=== PATIENT | male | born 2000 | race Caucasian/White ===

== ENCOUNTER 2020-06-26 01:53 | Emergency (ER) | payer OTHER, SELFPAY ==
--- OUTSIDE RECORDS SUMMARY | 2020-06-26 01:57 | XMS REPORT | Clinical Summary ---
:2000 Author Organization [facility] Address [address] [place] [address] Care Team Providers Name Role Phone MD Maria A Primary Care Provider Allergies No Known Allergies Medications Medication Sig Dispensed Refills Start Date End Date Status ABSORICA 40 mg Take 40 mg by 0 05/02/2017 Active capsuleIndications: mouth daily. severe recalcitrant nodular acne ARIPiprazole Take 1 tablet (2 30 tablet 0 10/15/2019 9 (ABILIFY) 2 MG mg total) by mouth tabletIndications: nightly for 30 depression days .Additional treatment adjunct Medications to Treat Depression. nicotine (NICODERM Place 1 patch on 30 patch 0 10/15/2019 CQ) 14 mg/24 the skin daily for hrIndications: 30 days .Stop smoking cessation Smoking. traZODone (DESYREL) Take 1 tablet (50 30 tablet 0 10/15/2019 1 01/15/2019 50 MG mg total) by mouth tabletIndications: nightly as needed insomnia associated for sleep for up with depression to 30 days .insomnia associated with depression. Active Problems Problem Noted Date Suicidal ideation 10/08/2019 Depression 10/08/2019 Cystic acne 04/26/2016 Episodic mood disorder 12/23/2012 Overview: History of depression and anxiety. Is following with psychiatry, Dr. Evie Morse, is on fluoxetine 40 mg. Symptoms well controlled per patient. History of self cutting behavior and bob cidal ideation. H/O intravenous drug use in remission Overview: Patient states he was using multiple drugs including intravenous drugs for a few years, states he lost track, had a few hospitalizations related to substance abuse. Has been sober since December 2016. Has also quit smoking since 03/2017. Encounters Date Type Specialty Care Team Description 10/08/2019 - Hospital Encounter Psychiatry Pauly Tang MD 10/15/2019 Joaquin Sanchez MD Kazimi, Iram Fatima, MD 10/08/2019 Intake Access after 06/26/2019 Immunizations Name Administration Dates Next Due DTP / HiB 1999 DTaP, Unspecified 04/08/2003, 03/28/2000, 1999 FLUZONE QUAD 10/05/2015, 07/10/2012, 01/09/2012 HPV, Unspecified 03/31/2013, 10/24/2012, 07/10/2012 Hep A, Unspecified 06/22/2011, 12/10/2001 Hep B, Unspecified 03/28/2000, 1999, 1999 Hib (PRP-T) 03/28/2000, 1999 IPV 04/08/2003, 03/28/2000, 1999, 1999 MMR 04/08/2003, 03/28/2000 Meningococcal ACYW, Unspecified 07/09/2015, 06/22/2011 Tdap 06/22/2011 Varicella 03/28/2000 Family History Medical History Relation Name Comments ADD / ADHD Brother ADD / ADHD Brother Mental illness Father Other Father Bipolar disorder Maternal Grandfather Depression Maternal Grandfather No Known Problems Maternal Grandmother Depression Mother Hyperlipidemia Paternal Grandfather Hypertension Paternal Grandfather Other Paternal Grandfather Colon cancer Neg Hx Prostate cancer Neg Hx Relation Name Status Comments Brother Alive Brother Alive Father Alive substance abuse Maternal Grandfather Alive Maternal Grandmother Alive Mother Alive Paternal Grandfather Alive detatched r etina and ulcers Paternal Grandmother unknown cau se of Social History Tobacco Use Types Packs/Day Years Used Date Current Every Day Smoker Cigarettes Smokeless Tobacco: Former User Q uit: 04/13/2017 Tobacco Cessation: Ready to Quit: Yes; C ounseling Given: Yes Comments: restarted 05/22/2017 Alcohol Use Drinks/Week oz/Week Comments Yes social Sex Assigned at Date Recorded Not on file Job Start Date Occupation Industry Not on file Not on file Not on file Travel History Travel Start Travel End No recent travel history available. Last Filed Vital Signs Vital Sign Reading Time Taken Comments Blood Pressure 127/69 10/15/2019 6:37 AM PERCUSSION INSTRUMENT REPAIRER Pulse 62 10/15/2019 6:37 AM PERCUSSION INSTRUMENT REPAIRER Temperature 37 C (98.6 F) 10/15/2019 6:37 AM PERCUSSION INSTRUMENT REPAIRER Respiratory Rate 18 10/15/2019 6:37 AM PERCUSSION INSTRUMENT REPAIRER Oxygen Saturation 100% 10/15/2019 6:37 AM PERCUSSION INSTRUMENT REPAIRER Inhaled Oxygen Concentration - - Weight 65 kg (143 lb 3.2 oz) 10/15/2019 6:37 AM PERCUSSION INSTRUMENT REPAIRER Height 193 cm (6' 4") 10/08/2019 5:13 AM PERCUSSION INSTRUMENT REPAIRER Body Mass Index 17.43 10/08/2019 5:13 AM PERCUSSION INSTRUMENT REPAIRER Plan of Treatment Health Maintenance Due Date Last Done Comments INFLUENZA VACCINE 06/19/2020 10/05/2015, 07/10/2012, 2011 Procedures Procedure Name Priority Date/Time Associated Comments Diagnosis URINALYSIS SCREEN AND Routine 10/11/2019 10:35 Re sults for this MICROSCOPY, WITH PM PERCUSSION INSTRUMENT REPAIRER procedure a re in REFLEX TO CULTURE the result s section. URINE CULTURE Routine 10/11/2019 10:35 Results fo r this PM PERCUSSION INSTRUMENT REPAIRER procedure are i n the results section. SYPHILIS TOTAL Routine 10/08/2019 11:00 Results f or this ANTIBODY PM [employer]CUSSION INSTRUMENT REPAIRER procedure are i n the results section. HIV AG/AB COMBINATION Routine 10/08/2019 11:00 Re sults for this PM PERCUSSION INSTRUMENT REPAIRER procedure are i n the results section. LIPID PANEL Routine 10/08/2019 11:00 Results for this PM PERCUSSION INSTRUMENT REPAIRER procedure are i n the results section. HEMOGLOBIN A1C Routine 10/08/2019 11:00 Results f or this PM PERCUSSION INSTRUMENT REPAIRER procedure are i n the results section. RESPIRATORY PATHOGEN Routine 10/08/2019 8:10 Res ults for this PANEL AM PERCUSSION INSTRUMENT REPAIRER procedure are i n the results section. after 06/26/2019 Results Urinalysis screen and microscopy, with reflex to culture (10/11/2019 10:35 PM PERCUSSION INSTRUMENT REPAIRER) Specimen site Random void [facility] Color, UA Colorless [facility] Appearance, UA Clear [facility] Specific gravity, UA 1.001 1.001 - 1.035 [facility] pH, UA 7.0 5.0 - 8.5 [facility] Protein, UA Negative Negative [facility] Glucose, UA Negative Negative [facility] Ketones, UA Negative Negative [facility] Bilirubin, UA Negative Negative [facility] Blood, UA Negative Negative [facility] Nitrite, UA Negative Negative [facility] Urobilinogen, UA <2.0 <2.0 [facility] Leukocyte esterase, Negative Negative [facility] Epithelial cells, UA <1 /HPF [facility] WBC, UA None seen 0 - 1 /HPF [facility] RBC, UA None seen 0 - 5 /HPF [facility] Bacteria, UA None seen None seen [facility] Yeast, UA None seen [facility] Yeast with None seen [facility] pseudohyphae, HOSPITAL Specimen Urine Performing Organization Address City/State/Zipcode Phone Number [facility] DEPARTMENT OF PATHOLOGY AND [address] [place] [address] [place] [phone] Urine culture (10/11/2019 10:35 PM PERCUSSION INSTRUMENT REPAIRER) Pathologist Sig nature Urine culture SEE COMMENTComment: [facility] Bacteriuria screen HOSPITAL negative. Specimen Performing Organization Address City/[facility] Phone Number [facility] DEPARTMENT OF PATHOLOGY AND [address] [place] [phone] Syphilis total antibody (10/08/2019 11:00 PM PERCUSSION INSTRUMENT REPAIRER) Syphilis total Non-reactiveComment Non-reactive [facility] antibody : No serological HOSPITAL evidence of syphilis infection. Specimen Blood Performing Organization Address City/[facility]/Zipcode Phone Number [facility] DEPARTMENT OF PATHOLOGY AND [address] [place] [phone] [place] [phone] HIV Ag/Ab combination (10/08/2019 11:00 PM PERCUSSION INSTRUMENT REPAIRER) HIV Ag/Ab combination Non-reactive Non-reactive [facility] Specimen Blood Performing Organization Address City/[facility]/Zipcode Phone Number [facility] DEPARTMENT OF PATHOLOGY AND [address] [place] [phone] Hemoglobin A1c (10/08/2019 11:00 PM PERCUSSION INSTRUMENT REPAIRER) Hemoglobin A1C 5.5 4.0 - 5.6 % [facility] Comment: HOSPITAL HbA1c cutoffs for diagnosing diabetes: 4.0% - 5.6% = normal 5.7% - 6.4% = increased risk for diabetes (prediabetes )9 >=6.5% = diabetes9 Goals for glycemic control (ADA 2016) < 7.0% Target for non adults with diabetes. More or less stringent targets may be appropriate for individual patients. <7.5% Target for Children and adolescents with type 1 diabetes. Specimen Blood Performing Organization Address City/[facility]ode Phone Number [facility] DEPARTMENT OF PATHOLOGY AND [address] [place] [address] [phone] [address] Lipid panel (10/08/2019 11:00 PM PERCUSSION INSTRUMENT REPAIRER) Cholesterol 122 <200 mg/dL [facility] Triglycerides 110 <150 mg/dL [facility] HDL cholesterol 43 >40 mg/dL [facility] LDL cholesterol 68Comment: Result <100 mg/dL [place] obtained by direct [place] LDL measurement [facility] Lipid panel [facility] interpretation Comment: [place] Total Cholesterol (mg/dL) HOSPIT [place] <200 Desirable 200-239 Borderline-high >=240 High Triglycerides (mg/dL) <150 Normal 150-199 Borderline-high 200-499 High >=500 Very high HDL Cholesterol (mg/dL) <40 Low (male) <40 Low (female) LDL Cholesterol (mg/dL) <100 Optimal 100-129 Near or above optimal 130-159 Borderline-high 160-189 High >=190 Very high Risk Catergories that modify LDL goals. Risk Catergories LDL goal (mg/d L) CHD and CHD risk equivalent <100 (10-year risk >20%) Multiple (2+) risk factors <130 (10-year risk =<20%) 0-1 risk factors <160 (<10-year risk) Defining levels of lipids in metabolic syndrome Triglycerides >=150 mg/dL HDL Cholesterol Men <40 mg /dL Women <40 mg/ dL Non-HDL cholesterol is a second target for therapy in persons with high triglycerides (>=200 mg/dL) Specimen Plasma specimen Performing Organization Address City/State/Zipcode Phone Number [facility] DEPARTMENT OF PATHOLOGY AND [address] [place], [place] [phone] [id number] [place] [phone] Respiratory pathogen panel (10/08/2019 8:10 AM PERCUSSION INSTRUMENT REPAIRER) Respiratory Positive for Rhinovirus/Enterovirus [place] pathogen panel [place] Negative for all other pathogens tested: HOSPITAL Negative for Adenovirus Negative for Coronavirus HKU1 Negative for Coronavirus NL63 Negative for Coronavirus 229E Negative for Coronavirus OC43 Negative for Human Metapneumovirus Negative for Influenza A Negative for Influenza A/H1 Negative for Influenza A/H3 Negative for Influenza A/H1-2009 Negative for Influenza B Negative for Parainfluenza Virus 1 Negative for Parainfluenza Virus 2 Negative for Parainfluenza Virus 3 Negative for Parainfluenza Virus 4 Negative for Respiratory Syncytial Virus Negative for Bordetella pertussis Negative for Chlamydophila pneumoniae Negative for Mycoplasma pneumoniae This real-time PCR assay detects the presence of nucle ic acids (RNA or DNA) for the respiratory pathogens liste d. A result of "Not-detected" does not exclude the possib ility of the presence of one or more pathogens at concentrat ions less than the detectable limits of the assa (A) Comment: Specimen Information Specimen Source: Nares Specimen Site: Not otherwise specified Specimen Nares - Not otherwise specified Performing Organization Address City/State/Zipcode Phone Number [facility] DEPARTMENT OF PATHOLOGY AND [address] [place] [phone] [facility] [address] [phone] after 06/26/2019 Insurance Payer Benefit Plan / Subscriber ID Effective Dates Phone Addre ss Type Group [facility] xxxxxxxxxxxx 2016-[employer] HEALTH CHOICE EXCHANGE t EXCHANGE [employer] BCBS BCBS OUT OF STATE xxxxxxxxxxxxxx 2015-[employer] PPO t MISC EXCHANGE AMBETTER FROM xxxxxxxxxxx 2019-[employer] SUPERIOR t HEALTHPLAN Advance Directives For more information, please contact: [phone] Type Date Recorded Patient Production Support Consultant Explanati on Advance Directives, Living Will 11/28/2017 4:36 PM and Medical Power of Marine Design Engineer Code Status Date Activated Date Inactivated Comments Full Code 10/08/2019 6:42 AM 10/15/2019 3:55 PM Code Status decision reached by: Patient
--- OUTSIDE RECORDS SUMMARY | 2020-06-26 01:58 | XMS REPORT | Continuity of Care Document ---
:2000 Author Organization [facility] t Address [address] [place] [place] [address] Care Team Providers Name Role Phone Maria A SINCLAIR Primary Care Physician Kitty SINCLAIR Attending Clinician Daniel SNICLAIR, N. Attending Clinician Mirella Varela MD Attending Clinician RAYMUNDO Attending Clinician Unavailable OLGA Attending Clinician Unavailable Payers Payer Name Policy Policy Number Effective Expiration Source Type Date Date [facility] xxxxxxxxxxxx 2016 [place] CHOICE EXCHANGECOM 00:00:00 Method ist [facility] EXCHANGE MARKETPLACExxxxxxxxx xx2016-PresentE xchange BCBSBCBS OUT OF xxxxxxxxxxxxxx 2015 [place] STATExxxxxxxxxxxxxx1 00:00:00 Meth odist /11/2015-PresentPPO MISC xxxxxxxxxxx 2019 [place] EXCHANGEAMBETTER 00:00:00 Methodis t FROM [facility]xx x2019-PresentExc hange Problems Condition Condition Condition Status Onset Resolution Last Treating Co mments Source Name Details Category Date Date Treatment Clinician Date Suicidal Suicidal Disease Active 2018-11 [place] ideation ideation 12-08 Method i 00:00: st 00 Depression Depression Disease Active 2018-11 [place] 12-08 Methodi 00:00: st 00 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 Is following with psychiatr y, Dr. Evie Morse, is on fluoxetin e 40 mg. Symptoms well controlle d per patient.H istory of self cutting behavior and suicidal ideation. Screening Screening Problem Active Uni vers for STD for STD HL7.CCDAR2 ity of ([place]ually ([place]ually [place] transmitte transmitte Ph ysici d disease) d disease) an s Tobacco Tobacco Problem Active Univers abuse abuse HL7.CCDAR2 ity of [place] [facility] Anxiety Anxiety Problem Active Univers and and HL7.CCDAR2 [place] [facility] H/O H/O Disease Active Overview: Adriana arevalo intravenou intravenou Patient M ethodi s drug use s drug use states he st in in was using remission remission multiple drugs including intraveno us drugs for a few years, states he lost track, had a few hospitali zations related to substance abuse. 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 Allergies, Adverse Reactions, Alerts This patient has no known allergies or adverse reactions. Family History Family Member Diagnosis Comments Start Date Stop Date Source uncle Family history of Univers ity of lung cancer [place] [facility] Natural brother ADD / ADHD [place] Sikh Natural father Mental illness [place] Sikh Natural father Other [place] Sikh Maternal Bipolar disorder [place]ana grandfather Sikh Maternal Depression [place]ana grandfather Sikh Maternal No Known Problems [place]ana grandmother Sikh Natural mother Depression [place] Sikh Paternal Hyperlipidemia [place] grandfather Sikh Paternal Hypertension [place]ana grandfather Sikh Paternal Other [place]ana grandfather Sikh Family member Colon cancer [place] Sikh Family member Prostate cancer [place] Sikh Social History Social Habit Start Date Stop Date Quantity Comments Source History of Cigarette Smoker [place] Sikh [facility] 2017-11-28 2017-11-28 Current drinker [place] on Sikh 00:00:00 00:00:00 of alcohol (finding) Tobacco Comment 2017-05-24 2017-05-[address] [facility] ethodist 00:00:00 00:00:00 05/22/2017 Alcohol Comment 2017-04-13 2017-04-[address] [facility] ethodist 00:00:00 00:00:00 Smoking Status Start Date Stop Date Source Current every day smoker 2017-11-28 00:00:00 [facility] Medications Ordered Filled Start Stop Current Ordering Indication Dosage Frequency Signature Comments Components Source Medication Medication Date Date Medication? Clinician (SIG) Name Name ARIPiprazol 2018-11- No depression 2mg QD Take 1 Bruce e (ABILIFY) 12-15 treatment tablet (2 Methodi 2 MG tablet 00:00: 23:59 adjunct mg total) st 00 :00 by mouth nightly for 30 days .Additiona l Medication s to Treat Depression . nicotine 2018-11- No smoking 1{patch QD Place 1 [facility]rera (NICODERM 12-15 cessation } patch on Methodi CQ) 14 00:00: 23:[address] mg/24 hr 00 :00 daily for 30 days .Stop Smoking. traZODone 2018-11- No insomnia 50mg QD Take 1 [place] (DESYREL) 12-15 associated tablet (50 Methodi 50 MG 00:00: 23:59 with mg total) st tablet 00 :00 depression by mouth nightly as needed for sleep for up to 30 days .insomnia associated with depression . Centrum Centrum Yes 1 QD TAKE 1 Unive rs Oral Tablet Oral Tablet 5-23 TABLET ity of 00:00: DAILY. [place] 00 Physici ans Nicorette Nicorette 2017- Yes KELLY 1 CHEW 1 Univers Starter Kit Starter Kit 5-23 HINCKS PIECE ity of 2 MG 2 MG 00:00: D.O. SLOWLY AND [place] Mouth/Throa Mouth/Throa 00 INTERMITTE Physici t Gum t Gum NTLY FOR ans 30 MINUTES. REPEAT EVERY 1-2 HOURS; MAXIMUM OF 24 PIECES/DAY ABSORICA 40 2016- Yes severe 40mg QD Take 40 mg [place]rera mg capsule 6-14 recalcitran by mouth Methodi 00:00: t nodular daily. st 00 acne Vitamin Vitamin Yes Univers B-12 TABS B-12 TABS ity o f [place] [facility] Vitamin C Vitamin C Yes Unive rs TABS TABS ity of [place] [facility] Immunizations Ordered Immunization Filled Immunization Date Status Commen ts Source Name Name Tdap (Adacel) 2018-04-10 Completed [facility] 08:31:00 [place] [facility] FLUZONE QUAD 2015-10-05 Completed [place] 00:00:00 Sikh Meningococcal ACYW, 2015-07-09 Completed [place] Unspecified 00:00:00 Sikh HPV, Unspecified 2013-03-31 Completed [place] 00:00:00 Sikh HPV, Unspecified 2012-10-24 Completed [place] 00:00:00 Sikh HPV, Unspecified 2012-07-10 Completed [place] 00:00:00 Sikh FLUZONE QUAD 2012-07-10 Completed [place] 00:00:00 Sikh FLUZONE QUAD 2012-01-09 Completed [place] 00:00:00 Sikh Hep A, Unspecified 2011-06-22 Completed [place] 00:00:00 Sikh Meningococcal ACYW, 2011-06-22 Completed [place] Unspecified 00:00:00 Sikh Tdap 2011-06-22 Completed [place] 00:00:00 Sikh DTaP, Unspecified 2003-04-08 Completed [place] 00:00:00 Sikh IPV 2003-04-08 Completed [place] 00:00:00 Sikh MMR 2003-04-08 Completed [place] 00:00:00 Sikh Hep A, Unspecified 2001-12-10 Completed [place] 00:00:00 Sikh DTaP, Unspecified 2000-03-28 Completed [place] 00:00:00 Sikh Hep B, Unspecified 2000-03-28 Completed [place] 00:00:00 Sikh Hib (PRP-T) 2000-03-28 Completed [place] 00:00:00 Sikh IPV 2000-03-28 Completed [place] 00:00:00 Sikh MMR 2000-03-28 Completed [place] 00:00:00 Sikh Varicella 2000-03-28 Completed [place] 00:00:00 Sikh DTaP, Unspecified 1999 Completed [place] 00:00:00 Sikh Hib (PRP-T) 1999 Completed [place] 00:00:00 Sikh IPV 1999 Completed [place] 00:00:00 Sikh DTP / HiB 1999 Completed [place] 00:00:00 Sikh IPV 1999 Completed [place] 00:00:00 Sikh Hep B, Unspecified 1999 Completed [place] 00:00:00 Sikh Hep B, Unspecified 1999 Completed [place] 00:00:00 Sikh Vital Signs Vital Name Observation Time Observation Value Comments Source Systolic blood 2019-10-15 127 mm[Hg] [place] pressure 06:37:50 Sikh Diastolic blood 2019-10-15 69 mm[Hg] [place] pressure 06:37:50 Sikh Heart rate 2019-10-15 62 /min [place] 06:37:50 Sikh Body temperature 2019-10-15 37 Le [place] 06:37:50 Sikh Respiratory rate 2019-10-15 18 /min [place] 06:37:50 Sikh Body weight 2019-10-15 64.955 kg [place] 06:37:50 Sikh BMI 2019-10-15 17.43 kg/m2 [place] 06:37:50 Sikh Oxygen saturation 2019-10-15 100 /min [place] in Arterial blood 06:37:50 Sikh by Pulse oximetry Body height 2019-10-08 193 cm [place] 05:13:00 Sikh BP Systolic 2018-04-10 115 mm[Hg] Location: [facility] 08:10:00 Position: [place] [facility] Sitting BP Diastolic 2018-04-10 74 mm[Hg] Location: [facility] 08:10:00 Position: [place] [facility]ician s Sitting Height 2018-04-10 72 [in_us] [facility] 08:10:00 [place] [facility] Weight 2018-04-10 158 [lb_av] [facility] 08:10:00 [place] [facility] Body Mass Index 2018-04-10 21.43 kg/m2 [place] o f Calculated 08:10:00 [place] [facility] Temperature 2018-04-10 97.3 [degF] Method: [facility] 08:10:00 Tympanic [place] [facility] Heart Rate 2018-04-10 48 /min [facility] 08:10:00 [place] [facility] Procedures Procedure Date / Time Performing Clinician Source Performed URINE CULTURE 2019-10-11 22:35:00 Joaquin Sanchez URINALYSIS SCREEN AND 2019-10-11 22:35:00 Joaquin Sanchez MICROSCOPY, WITH REFLEX TO CULTURE HEMOGLOBIN A1C 2019-10-08 23:00:00 Joaquin Sanchez LIPID PANEL 2019-10-08 23:00:00 Joaquin Sanchez HIV AG/AB COMBINATION 2019-10-08 23:00:00 Joaquin Sanchez SYPHILIS TOTAL ANTIBODY 2019-10-08 23:00:00 Joaquin Sanchez RESPIRATORY PATHOGEN 2019-10-08 08:10:00 Joaquin Sanchez PANEL [L] Trichomonas Culture 2018-04-10 00:00:00 [facility] Physicians [LH] GC/CT by Amp Det 2018-04-10 00:00:00 [facility] (APTIMA) Physicians [QH] HIV AB, HIV 1/2, 2018-04-10 00:00:00 [facility] EIA, WITH REFLEXES Physicians [QL] RPR 2018-04-10 00:00:00 [place] o f [place] [facility] [[facility]] HEPATITIS PANEL 2018-04-10 00:00:00 [facility]icians [[facility]] TSH, 3RD 2018-04-10 00:00:00 [place] o f [place] GENERATION W/REFLEX TO Physician s FT4 History of Dental [facility] surgery Physicians History of Orchiopexy [facility] Physicians Plan of Care Planned Activity Planned Date Details Comments Source Future Scheduled 2020-06-19 INFLUENZA VACCINE Adriana Dong Test 00:00:00 [code = INFLUENZA VACCINE] Encounters Start End Encounter Admission Attending Care Care Encounter Source Date/Time Date/Time Type Type Clinicians Facility Department ID 2018-08-06 2018-08-06 AppointTIKI Benjamin [id number] Univers 14:00:00 14:00:00 t; JULIO FONSECA ity of [place], M.D. [place] M.D. Physici ans 2018-06-11 2018-06-11 AppointTIKI Hoffman [id number] Univers 08:15:00 08:15:00 t; KELLY ESPINOZA D.O. ity of [place], [place] Physici ans 2018-06-10 2018-06-10 AppointTIKI Benjamin [id number] Univers 08:00:00 08:00:00 t; JULIO FONSECA ity of [place], M.D. [place] M.D. Physici ans 2018-04-10 2018-04-10 AppointTIKI Hoffmana [id number] Univers 08:00:00 08:00:00 t; KELLY ESPINOZA D.O. [facility] [place], [place] Soniya Rodriguezi ans Results Test Description Test Time Test Comments Results Result Comments Source Urine culture 2019-10-11 23:35:29 Test Item Value Reference Range Interpretation Comme nts Urine culture (test code = 1166345) SEE COMMENT Bacteriuria screen negative. [facility] MethodistUrinalysis screen and microscopy, with reflex to culture 2019-10-11 23:35:26 Test Item Value Reference Range Interpretation Comments Specimen site (test code = Random void 0877190) Color, UA (test code = 5778-6) Colorless Appearance, UA (test code = Clear 5767-9) Specific gravity, UA (test code = 1.001 1.001-1.035 5811-5) pH, UA (test code = 5803-2) 7.0 5.0-8.5 Protein, UA (test code = 64249-1) Negative Negative Glucose, UA (test code = 58195-0) Negative Negative Ketones, UA (test code = 2514-8) Negative Negative Bilirubin, UA (test code = Negative Negative 5770-3) Blood, UA (test code = 5794-3) Negative Negative Nitrite, UA (test code = 5802-4) Negative Negative Urobilinogen, UA (test code = <2.0 <2.0 42703-4) Leukocyte esterase, UA (test code Negative Negative = 5799-2) Epithelial cells, UA (test code = <1 /HPF 5787-7) WBC, UA (test code = 5821-4) None seen 0- 1 /HPF RBC, UA (test code = 28775-4) None seen 0- 5 /HPF Bacteria, UA (test code = None seen None seen 73059-9) Yeast, UA (test code = 10079-5) None seen Yeast with pseudohyphae, UA (test None seen code = 13726-4) Brarera MethodistSyphilis total [id number] 10:15:54 Test Item Value Reference Range Interpretation Comments Syphilis total Non-reactive Non-reactive No serologica l antibody (test code evidence of syphilis = 6194) infection. Barrera MethodistHemoglobin [id number] 08:16:09 Test Item Value Reference Range Interpretation Comments Hemoglobin A1C (test 5.5 % 4-5.6 HbA1c c utoffs for code = 62809-6) diagnosing d iabetes:4.0% - 5.6% = normal 5.7% - 6.4% = increase d risk for diabetes (prediabetes)9> =6.5% = [id number] for glycemic contro l (ADA 2016)< 7.0% Ta rget for non anila lts with diabetes. More or less stringent targe ts may be appropriate for individual karena ents. <7.5% Target for Children and ad olescents with type 1 hernandez betes. Barrera MethodistHIV Ag/Ab [id number] 04:21:13 Test Item Value Reference Range Interpretation Comments HIV Ag/Ab combination (test code Non-reactive Non-reactive = 5299) [facility]oxana MethodistLipid [id number] 03:05:21 Test Item Value Reference Interpretation Comments Range Cholesterol (test 122 mg/dL <200 code = 2093-3) Triglycerides (test 110 mg/dL <150 code = 2571-8) HDL cholesterol 43 mg/dL >40 (test code = 2085-9) LDL cholesterol 68 mg/dL <100 Result obtai amy by direct (test code = 2089-1) LDL jacques surement Lipid panel SeeBelow Total Cholester ol (mg/dL) interpretation (test < 200 code = 45182-5) Desirable 200-239 Borderline -high >=240 Hi gh Triglyceri too (mg/dL) <150 No rmal 150-199 Borderline-high 200-499 High >=500 Very high HDL Choles terol (mg/dL) <40 Low (male) < 40 Low (female) L DL Cholesterol (mg /dL) <100 Optimal 1 00-129 Near or above o ptimal 130-159 Borderline-high 160-189 High >=190 Very high Risk Cat ergories that modify LDL goals.Risk Catergories LDL goal (mg/dL )CHD and CHD risk equiva lent <100 (10-year risk >20%)Multiple ( 2+) risk factors < 130 (10-year risk = <20%)0-1 risk factors <160 (<10-ye ar risk) Defining levels of lipids in metabolic syndromeTriglyc erides > =150 mg/dLHDL Choles terol Men <40 mg/dL Women <40 mg/dL Non-HDL cholest justina is a second target f or therapy in personswith high triglycerides ( >=200 mg/dL) Roxana MethodistRespiratory pathogen [id number] 15:16:38 Test Item Value Reference Interpretation Comments Range Respiratory Positive for A Specimen pathogen panel Rhinovirus/Enterovirus-- I nformationSpecimen (test code = Neg Lisy rce: 2148) ative for all other [facility]: pathogens Not otherwise tested:Negative for specifie d AdenovirusNegative for Coronavirus EJA5Vaqtpxro for Coronavirus LF58Akcjigrt for Coronavirus 229ENegative for Coronavirus CK33Lbkpjhme for Human MetapneumovirusNegative for Influenza ANegative for Influenza A/S1Ogspikvf for Influenza A/E0Lxixrvvb for Influenza A/H1-2009Negative for Influenza BNegative for Parainfluenza Virus 1Negative for Parainfluenza Virus 2Negative for Parainfluenza Virus 3Negative for Parainfluenza Virus 4Negative for Respiratory Syncytial VirusNegative for Bordetella pertussisNegative for Chlamydophila pneumoniaeNegative for Mycoplasma pneumoniaeThis real-time PCR assay detects the presence of nucleic acids (RNA or DNA) for the respiratory pathogens listed. A result of "Not-detected" does not exclude the possibility of the presence of one or more pathogens at concentrations less than the detectable limits of the assa Lab Abnormal Interpretation (test code = 39945-9) [facility]] TSH, 3RD GENERATION W/REFLEX TO [id number] 09:01:01 Test Item Value Reference Range Interpretation Comments TSH (test code = 28147-2) 1.760 {uIU/ml} 0.360-3.740 [facility] Physicians[QL] HEPATITIS [id number] 09:01:01 Test Item Value Reference Range Interpretation Comments Hepatitis B Surface Antigen (test Negative Negative code = 5195-3) Hepatitis C Antibody (test code = Negative 71283-7) Hepatitis B Core IgM (test code = Negative Negative 02454-9) Hepatitis A IgM (test code = Negative Negative 58379-3) [facility] Phys[facility][] HIV AB, HIV 1/2, EIA, WITH [id number] 09:01:01 Test Item Value Reference Range Interpretation Comments HIV Ag/Ab 4th Gen (test code = Negative Negative 76615-6) [facility] Physicians[QLH] [id number] 09:01:01 Test Item Value Reference Range Interpretation Comments RPR (test code = 34041-5) Non-Reactive Non-Reactive [facility] Physicians[] GC/CT by Amp Det (APTIMA)2018-04-10 09:01:01 Test Item Value Reference Range Interpretation Comments Source APTIMA Urine (test code = Source APTIMA) N gonorrhea by Amp Negative Negative The APTIM A assay is a Det (APTIMA) (test target am plification code = 87511-0) nucleic acid probe test utilizingtarget capture for the qualitative detection and differentia tion of ribosomalRNA fr om Neisseria gonorrhoeae to aid in the diagnosis of di sease fromsymptomatic and asymptomatic in dividuals using the [employer] ER System.This ass ay utilizes FDA cleared IVD reagents. Performance juani racteristics havebeen verifi ed by the [facility] with in [facility].The [facility] r[facility] is authorized unde r the Clinical LaboratoryImpro vement Amendments of 1 988 (CLIA-88) to pe rform high complexity test ing. C trachomatis by Negative Negative The APTIMA assay is a Amp Det (APTIMA) target ampl ification (test code = nucleic acid pr obe test 98060-7) utilizingtarget capture for the qualitative detection and differentia tion of ribosomalRNA fr om Chlamydia trachomatis to aid in the diagnosis of di sease fromsymptomatic and asymptomatic in dividuals using the [employer] ER System.This ass ay utilizes FDA cleared IVD reagents. Performance juani racteristics havebeen verifi ed by the [facility] with in [facility].The [facility] r[facility] is authorized unde r the Clinical LaboratoryImpro vement Amendments of 1 988 (CLIA-88) to pe rform high complexity test ing. [facility]
[2020-06-26] MEDS ORDERED: PROMETHAZINE INJ 25 MG/ML AMP ONE (02:30)
[2020-06-26] MEDS ORDERED: NA CHLORIDE 0.9% 1,000 ML ONE ×2 (02:30→03:21)
[2020-06-26 02:42] LABS: Urine Blood TRACE (NEG); Urine Glucose 2+ (NEG); Urine Protein 2+ (NEG); Urine Specific Gravity 1.025 (1.005-1.030)
[2020-06-26 02:44] LABS: Hematocrit 41.9 % (39.6-49.0)
[2020-06-26 02:45] LABS: Protime INR 1.01
[2020-06-26 02:56] LABS: ALT/SGPT 75 U/L (12-78); AST/SGOT 76 U/L (15-37); Alkaline Phosphatase 92 U/L (45-117); BUN Blood Urea Nitrogen 19 mg/dL (7-18); Bicarbonate 23 mmol/L (21-32); Bilirubin Direct < 0.1 mg/dL (0-0.2); Bilirubin Total 0.2 mg/dL (0.2-1.0); Glucose Level 257 mg/dL (74-106); Potassium 3.4 mmol/L (3.5-5.1); Protein, Total 7.7 g/dL (6.4-8.2); Sodium Level 139 mmol/L (136-145)
[2020-06-26 03:01] LABS: Absolute Lymphocytes (CBC) 1.5 K/uL (0.7-4.9); Basophils % 0.2 % (0-1.3); MPV 7.8 fL (7.6-11.3); RBC Red Blood Cell Count 4.62 M/uL (4.33-5.43)
[2020-06-26 03:04] LABS: Barbiturates NEGATIVE (NEGATIVE); Benzodiazepines NEGATIVE (NEGATIVE); Cocaine NEGATIVE (NEGATIVE); METHAMPHETAM NEGATIVE (NEGATIVE); Methadone NEGATIVE (NEGATIVE); Opiates POSITIVE (NEGATIVE); Phencyclidine NEGATIVE (NEGATIVE); THC Cannibis NEGATIVE (NEGATIVE)
--- NOTE | 2020-06-26 05:46 | EDPHYS ---
Physician Documentation [facility] Name: Marek Anderson Age: 20 yrs Sex: Male : 2000 Arrival Date: 06/26/2020 Time: 01:56 Bed 4 Private MD: ED Physician Carlos Dow HPI: 06/26 02:05 This 20 yrs old Male presents to ER via Unassigned with complaints of mh7 Possible Overdose. 02:05 The patient presents to the emergency department with a possible overdose. Context: mh7 Method: the patient has a confirmed or suspected ingestion, of benzodiazepines, of narcotics, it is confirmed or suspected that the patient injected a substance, heroin, Time: today, Extent: Vicodin 10 mg total of 4 tablets, Valium 5 mg total of one tablet, it is unknown what amount the patient injected, the OD/poisoning occurred at at a friend's home, and was witnessed by a friend, Psychiatric history: none, Previous OD/poisoning history: none. Associated signs and symptoms: Pertinent positives: decreased level of consciousness, nausea, Pertinent negatives: anxiety, apnea, auditory hallucinations, burning of skin, depression, diaphoresis, diarrhea, dizziness, incontinence, loss of consciousness, palpitations, shortness of breath, tearfulness, visual hallucinations, vomiting. Severity of symptoms: At their worst the symptoms were severe today, in the emergency department the symptoms have improved markedly. Patient admits to using multiple drugs tonight. According to EMS, patient became unresponsive and was revived with Narcan by bystanders. . 02:05 He states that he took drugs to get high. He denies any suicidal or homicidal ideation. mh7 He also denies any auditory or visual hallucinations.. Historical: - Allergies: 02:19 No Known Allergies; ea - Home Meds: 02:19 None [Active]; ea - PSHx: 02:19 None; ea - Immunization history:: Adult Immunizations up to date. - Social history:: Smoking status: unknown. ROS: 02:05 Constitutional: Negative for fever, chills, and weight loss, Eyes: Negative for injury, mh7 pain, redness, and discharge, ENT: Negative for injury, pain, and discharge, Neck: Negative for injury, pain, and swelling, Cardiovascular: Negative for chest pain, palpitations, and edema, Respiratory: Negative for shortness of breath, cough, wheezing, and pleuritic chest pain, Back: Negative for injury and pain, : Negative for injury, bleeding, discharge, and swelling, MS/Extremity: Negative for injury and deformity, Skin: Negative for injury, rash, and discoloration, Neuro: Negative for headache, weakness, numbness, tingling, and seizure, Psych: Negative for depression, anxiety, suicide ideation, homicidal ideation, and hallucinations, Allergy/Immunology: Negative for hives, rash, and allergies, Endocrine: Negative for neck swelling, polydipsia, polyuria, polyphagia, and marked weight changes, Hematologic/Lymphatic: Negative for swollen nodes, abnormal bleeding, and unusual bruising. Exam: 02:05 Head/Face: Normocephalic, atraumatic. Eyes: Pupils equal round and reactive to light, mh7 extra-ocular motions intact. Lids and lashes normal. Conjunctiva and sclera are non-icteric and not injected. Cornea within normal limits. Periorbital areas with no swelling, redness, or edema. ENT: Nares patent. No nasal discharge, no septal abnormalities noted. Tympanic membranes are normal and external auditory canals are clear. Oropharynx with no redness, swelling, or masses, exudates, or evidence of obstruction, uvula midline. Mucous membranes moist. Neck: Trachea midline, no thyromegaly or masses palpated, and no cervical lymphadenopathy. Supple, full range of motion without nuchal rigidity, or vertebral point tenderness. No Meningismus. Chest/axilla: Normal chest wall appearance and motion. Nontender with no deformity. No lesions are appreciated. Cardiovascular: Regular rate and rhythm with a normal S1 and S2. No gallops, murmurs, or rubs. Normal PMI, no JVD. No pulse deficits. Respiratory: Lungs have equal breath sounds bilaterally, clear to auscultation and percussion. No rales, rhonchi or wheezes noted. No increased work of breathing, no retractions or nasal flaring. Abdomen/GI: Soft, non-tender, with normal bowel sounds. No distension or tympany. No guarding or rebound. No evidence of tenderness throughout. Back: No spinal tenderness. No costovertebral tenderness. Full range of motion. Skin: Warm, dry with normal turgor. Normal color with no rashes, no lesions, and no evidence of cellulitis. MS/ Extremity: Pulses equal, no cyanosis. Neurovascular intact. Full, normal range of motion. Neuro: Awake and alert, GCS 15, oriented to person, place, time, and situation. Cranial nerves II-XII grossly intact. Motor strength 5/5 in all extremities. Sensory grossly intact. Cerebellar exam normal. Normal gait. Psych: Awake, alert, with orientation to person, place and time. Behavior, mood, and affect are within normal limits. 02:05 Constitutional: The patient appears in no acute distress, alert, awake, anxious. Vital Signs: 02:14 BP 136 / 96; Pulse 98; Resp 18; Temp 97.3; Pulse Ox 100% on R/A; Weight 72.57 kg; ea Height 6 ft. 4 in. (193.04 cm); 03:59 BP 112 / 63; Pulse 66; Resp 16; Pulse Ox 98% ; ea 04:46 BP 104 / 61; Pulse 73; Resp 18; Pulse Ox 98% on R/A; ea 05:35 BP 145 / 89; Pulse 80; Resp 18; Temp 97.5; Pulse Ox 98% ; ea 02:14 Body Mass Index 19.48 (72.57 kg, 193.04 cm) ea MDM: 02:00 Patient medically screened. mh7 05:34 Differential diagnosis: Ingestion/exposure to opiates, benzodiazepines polypharmacy, mh7 over medication, hypoglycemia, closed head injury, intracranial hemorrhage. Data reviewed: vital signs, nurses notes, EMS record, lab test result(s), CBC, drug level(s), electrolytes, urinalysis, urine drug screen, radiologic studies, CT scan. Data interpreted: Pulse oximetry: on room air is 98 %. Interpretation: normal. Counseling: I had a detailed discussion with the patient and/or guardian regarding: the historical points, exam findings, and any diagnostic results supporting the discharge/admit diagnosis, the presence of at least one elevated blood pressure reading (>120/80) during this emergency department visit, lab results, radiology results, to return to the emergency department if symptoms worsen or persist or if there are any questions or concerns that arise at home. Response to treatment: the patient's symptoms have resolved after treatment, the patient's blood pressure is in an acceptable range, mental status has returned to baseline, the patient no longer shows bradycardia, the patient is not short of breath, the patient is not tachycardic, the patient's pain is gone, the patient's temperature has normalized. 06/26 01:59 Order name: Acetaminophen [facility] 06/26 01:59 Order name: Basic Metabolic Panel [facility] 06/26 01:59 Order name: CBC with Diff [facility] 06/26 01:59 Order name: ETOH Level [facility] 06/26 01:59 Order name: Hepatic Function [facility] 06/26 01:59 Order name: PT-INR [facility] 06/26 01:59 Order name: Ptt, Activated [facility] 06/26 01:59 Order name: Salicylate [facility] 06/26 01:59 Order name: Urine Drug Screen [facility] 06/26 02:41 Order name: Urine Dipstick--Ancillary (enter results) [facility] 06/26 02:43 Order name: Urine Dipstick-Ancillary; Complete Time: 03:07 EDMS 06/26 02:54 Order name: Protime (+INR); Complete Time: 03:08 EDMS 06/26 02:54 Order name: PTT, Activated Partial Thromb; Complete Time: 03:08 [facility] 06/26 02:57 Order name: Basic Metabolic Panel; Complete Time: 03:08 [facility] 06/26 01:59 Order name: EKG; Complete Time: 01:59 [facility] 06/26 01:59 Order name: EKG - Nurse/Tech; Complete Time: 02:24 [facility] 06/26 01:59 Order name: IV Saline Lock; Complete Time: 02:24 [facility] 06/26 01:59 Order name: Labs collected and sent; Complete Time: 02:24 [facility] 06/26 01:59 Order name: Urine Dipstick-Ancillary (obtain specimen); Complete Time: 02:40 [facility] 06/26 02:20 Order name: CT Head Brain wo Cont [facility] 06/26 02:57 Order name: Liver (Hepatic) Function; Complete Time: 03:08 EDMS 06/26 02:57 Order name: Acetaminophen Level; Complete Time: 03:08 EDMS 06/26 03:01 Order name: Alcohol Serum/Plasma; Complete Time: 03:08 EDMS 06/26 03:03 Order name: CBC with Automated Diff; Complete Time: 03:08 EDMS 06/26 03:04 Order name: Urine Drug Screen; Complete Time: 03:08 EDMS 06/26 03:13 Order name: Salicylates Level; Complete Time: 04:30 EDMS 06/26 04:50 Order name: Glucose, Ancillary Testing; Complete Time: 05:40 EDMS 06/26 04:46 Order name: Accucheck Blood Glucose; Complete Time: 05:08 [facility] Administered Medications: 02:24 Drug: NS 0.9% 1000 ml Route: IV; Rate: 1000 ml; Site: left antecubital; rv 02:24 Drug: Phenergan 12.5 mg Route: IVP; Site: left antecubital; rv 03:57 Follow up: Response: No adverse reaction ea 03:20 Drug: NS 0.9% 1000 ml Route: IV; Rate: 1000 ml; Site: left antecubital; ea Disposition: 06:25 Co-signature as Attending Physician, Carlos Dow MD. [facility] Disposition: 06/26/20 05:46 Discharged to Home. Impression: Opiate Overdose-Accidental. - Condition is Stable. - Discharge Instructions: Opioid Overdose. - Medication Reconciliation Form, Thank You Letter, Antibiotic Education, Prescription Opioid Use form. - Follow up: Private Physician; When: 1 - 2 days; Reason: Worsening of condition, Recheck today's complaints, Continuance of care, Re-evaluation by your physician. - Problem is an ongoing problem. - Symptoms are resolved. Signatures: Dispatcher [employer] Pat Slater RN RN ea Vicente, Ronaldo RN Carlos Guzmán MD MD 7 Corrections: (The following items were deleted from the chart) 05:53 05:46 06/26/2020 05:46 Discharged to Home. Impression: Opiate Overdose-Accidental. ea Condition is Stable. Forms are Medication Reconciliation Form, Thank You Letter, Antibiotic Education, Prescription Opioid Use. Follow up: Private Physician; When: 1 - 2 days; Reason: Worsening of condition, Recheck today's complaints, Continuance of care, Re-evaluation by your physician. Problem is an ongoing problem. Symptoms are resolved. [facility]
--- NOTE | 2020-06-26 05:46 | ER ---
Nurse's Notes [facility] Name: Marek Anderson Age: 20 yrs Sex: Male : 2000 Arrival Date: 06/26/2020 Time: 01:56 Bed 4 Private MD: Diagnosis: Opiate Overdose-Accidental Presentation: 06/26 02:07 Chief complaint: EMS states: Reports he was found unresponsive by friends, they ea initiated CPR and was given Narcan .5 upon EMS arrival they reported pt was confused, he was given another .5 Narcan, NS and Zofran 4mg per EMS. Pt reported he shot up heroin, took 1 Valium 5mg, and 10 mg Vicodin x 4. 02:11 Ebola Screen: No symptoms or risks identified at this time. ea 02:14 Coronavirus screen: At this time, the client does not indicate any symptoms associated ea with coronavirus-19. Initial Sepsis Screen: Does the patient meet any 2 criteria? No. Patient's initial sepsis screen is negative. Does the patient have a suspected source of infection? No. Patient's initial sepsis screen is negative. Risk Assessment: Do you want to hurt yourself or someone else? Patient reports no desire to harm self or others. Onset of symptoms was June 26, 2020. 02:14 Method Of Arrival: EMS: [facility] ea 02:14 Acuity: RASHMI 3 ea 02:24 Care prior to arrival: 20 G IV to LAC, NS, Narcan .5mg and Zofran 4 mg. ea Historical: - Allergies: 02:19 No Known Allergies; ea - Home Meds: 02:19 None [Active]; ea - PSHx: 02:19 None; ea - Immunization history:: Adult Immunizations up to date. - Social history:: Smoking status: unknown. Screenin:11 Abuse screen: Denies threats or abuse. Nutritional screening: No deficits noted. ea Tuberculosis screening: No symptoms or risk factors identified. Fall Risk IV access (20 points). Assessment: 02:19 General: Appears in no apparent distress. Behavior is appropriate for age. Pain: Denies ea pain. Neuro: Level of Consciousness is awake, alert, obeys commands, Oriented to person, place, time, situation. Respiratory: Airway is patent Respiratory effort is even, unlabored, Respiratory pattern is regular, symmetrical. Derm: Skin is clammy, Skin is pale, Skin temperature is warm. 02:20 Reassessment: Spoke with [place] from poison control. 6 hours of monitoring after ea Narcan, pt must be awake and alert the whole time before medical clearance. Do a 3 AM Tylenol level if greater than 150 it is considered toxic. Case #[id number]. 03:57 Reassessment: Patient and/or family updated on plan of care and expected duration. Pain ea level reassessed. Pt resting with eyes closed, respirations even and unlabored. Chest expansions even and symmetrical. 04:15 Reassessment: Patient and/or family updated on plan of care and expected duration. Pain ea level reassessed. Patient is alert, oriented x 3, equal unlabored respirations, skin warm/dry/pink. 05:21 Reassessment: Anna (friend) [phone]. ea 05:35 Reassessment: Patient and/or family updated on plan of care and expected duration. Pain ea level reassessed. Patient is alert, oriented x 3, equal unlabored respirations, skin warm/dry/pink. Patient states feeling better. 05:54 Reassessment: Patient and/or family updated on plan of care and expected duration. Pain ea level reassessed. Patient is alert, oriented x 3, equal unlabored respirations, skin warm/dry/pink. Discharge instruction given to patient, verbalized the understanding of instruction. Pt left ED ambulatory, family at ED to pick pt up. Vital Signs: 02:14 BP 136 / 96; Pulse 98; Resp 18; Temp 97.3; Pulse Ox 100% on R/A; Weight 72.57 kg; ea Height 6 ft. 4 in. (193.04 cm); 03:59 BP 112 / 63; Pulse 66; Resp 16; Pulse Ox 98% ; ea 04:46 BP 104 / 61; Pulse 73; Resp 18; Pulse Ox 98% on R/A; ea 05:35 BP 145 / 89; Pulse 80; Resp 18; Temp 97.5; Pulse Ox 98% ; ea 02:14 Body Mass Index 19.48 (72.57 kg, 193.04 cm) ea ED Course: 01:56 Patient arrived in ED. 01:57 Carlos Dow MD is Attending Physician. [facility] 02:03 Calderon, Pat, RN is Primary Nurse. ea 02:17 Triage completed. ea 02:17 Arm band placed on right wrist. Patient placed in an exam room, on a stretcher, on ea pulse oximetry. 02:17 Patient has correct armband on for positive identification. Placed in gown. Bed in low ea position. Call light in reach. playground monitor on. Pulse ox on. NIBP on. 02:17 Maintain EMS IV. Dressing intact. Good blood return noted. Site clean \T\ dry. Gauge \T\ ea site: 20G in left AC . 02:41 Urine Dipstick--Ancillary (enter results) Sent. ds4 02:41 Urine Drug Screen Sent. ds4 02:41 Salicylate Sent. ds4 05:35 No provider procedures requiring assistance completed. IV discontinued, intact, ea bleeding controlled, No redness/swelling at site. Pressure dressing applied. Administered Medications: 02:24 Drug: NS 0.9% 1000 ml Route: IV; Rate: 1000 ml; Site: left antecubital; rv 02:24 Drug: Phenergan 12.5 mg Route: IVP; Site: left antecubital; rv 03:57 Follow up: Response: No adverse reaction ea 03:20 Drug: NS 0.9% 1000 ml Route: IV; Rate: 1000 ml; Site: left antecubital; ea Outcome: 05:46 Discharge ordered by . [facility] 05:53 Patient left the ED. ea 05:54 Discharged to home ambulatory, with family. ea 05:54 Condition: stable 05:54 Discharge instructions given to patient, Instructed on discharge instructions, follow up and referral plans. Demonstrated understanding of instructions, follow-up care. Signatures: Tony Dunne RN RN sg Swanson, Donovan ds4 Pat Calderon RN RN ea Vicente, Ronaldo, RN RN rv Holmes, Maurice, MD MD 7 Corrections: (The following items were deleted from the chart) 02:17 02:07 Chief complaint: EMS states: Reports he was found unresponsive by friends, they ea initiated CPR and was given Narcan .05 ea 02:24 02:07 Chief complaint: EMS states: Reports he was found unresponsive by friends, they ea initiated CPR and was given Narcan .5 upon EMS arrival they reported pt was confused, he was given another .5 Narcan. Pt reported he shot up heroin, took 1 Valium 5mg, and 10 mg Vicodin x 4 ea
[2020-06-26 06:02] VITALS: O2SAT 98
[2020-06-26 06:04] VITALS: BP 145/89; TEMP 97.5
--- NOTE | 2020-06-26 07:18 | EKG ---
Test Date: 2020-06-26 Test Time: 02:02:34 Control Operator Flow Coat: JUN MEASUREMENT RESULTS: Intervals: Rate: 86 CO: 166 QRSD: 100 QT: 414 QTc: 495 Amity: P: 70 CO: 166 QRS: 70 T: 39 INTERPRETIVE STATEMENTS: Normal sinus rhythm Prolonged QT Abnormal ECG No previous ECG available for comparison Electronically Signed On 06-26-20 07:17:39 CDT by Homer French
--- NOTE | 2020-06-28 12:37 | RAD REPORT ---
EXAM DESCRIPTION: CT - Head Brain Wo Cont - 06/26/2020 2:57 am CLINICAL HISTORY: TRAUMA COMPARISON: None. TECHNIQUE: Axial unenhanced CT imaging of the brain. Reformatted coronal and sagittal images obtaine d. This examination was performed according to our departmental dose optimization program, which include s automated exposure control, adjustment of the mA and/or kV according to patient size and/or use of iterative reconstruction technique. FINDINGS: Ventricles are normal in size and contour. Extra-axial fluid spaces appear normal. There i s no intracranial bleed. No mass or midline shift. No acute infarction evident. There is no edema. Gr ay-white matter differentiation is preserved. The cerebellum and vermis appear normal. No hemorrhage within the posterior fossa. Prepontine cisterns are not effaced. Sella contents appear normal. Normal appearance of the intraorbital contents. There is significant mucosal thickening within the et hmoid air cells and maxillary sinuses. No sinus fluid levels. Imaged facial bones are intact. Skull b ase is intact. Right mastoid air cells are clear. There is pneumatization of the right petrous apex. There is opacification of the air cells in the left petrous apex. Intact calvarium. Normal scalp soft tissues. IMPRESSION: 1. No traumatic intracranial finding. 2. Left mastoid effusion involving the pneumatized left petrous apex. 3. Moderate mucosal sinus disease. Electronically signed by: Juliana Caputo DO 06/26/2020 3:13 AM CDT Due to temporary technical issues with the PACS/Fluency reporting system, reports are being signed by the in house radiologist without review as a courtesy to ensure prompt reporting. The interpreting r adiologist is fully responsible for the content of the report.
== END 2020-06-26 05:53 | disposition home or self-care (01) ==
LOC: ER 01:53
DX: T42.4X1A Poisoning by benzodiazepines, accidental (unintentional), initial encounter (principal)
CPT/HCPCS: 36415; 70450; 80048; 80076; 80307; 80320; 80329; 81003; 82947; 85025; 85610; 85730; 93005; 96374; 99284; J2550; J7030

== ENCOUNTER 2020-10-24 12:37 | Emergency (ER) | payer SELFPAY ==
--- OUTSIDE RECORDS SUMMARY | 2020-10-24 12:38 | XMS REPORT | Clinical Summary ---
:2000 Author Organization [facility] Address [address] [place] [address] Care Team Providers Name Role Phone MD Maria A Primary Care Provider Allergies No Known Active Allergies Medications Medication Sig Dispensed Refills Start [...] 2016. Has also quit smoking since 03/2017. Immunizations Name Administration Dates Next Due DTP / HiB 2000 DTaP, Unspecified 04/08/2003, 03/28/2000, 2000 FLUZONE QUAD 10/05/2015, 07/10/2012, 01/09/2012 HPV, Unspecified 03/31/2013, 10/24/2012, 07/10/2012 Hep A, Unspecified 06/22/2011, 12/10/2001 Hep B, Unspecified 03/28/2000, [birth year] Hib (PRP-T) 03/28/2000, 2000 IPV 04/08/2003, 03/28/2000, [birth year] MMR 04/08/2003, 03/28/2000 Meningococcal ACYW, Unspecified 07/09/2015, 06/22/2011 Tdap 06/22/2011 Varicella 03/28/2000 Surgical History Surgery Date Site/Laterality Comments REDUCTION, TORSION, TESTIS, SURGICAL twice at age 2 and age 11. Medical History Medical History Date Comments Depression Anxiety ADHD (attention deficit hyperactivity Wa s on Ritalin for a few years, disorder) stopped in 2012. Acne H/O intravenous drug use in remission Polysubstance abuse (HCC) Family History Medical History Relation Name Comments [...] Assigned at Date Recorded Not on file History Length Weight Head Circum Gestation Age D/C Weight APGARs Delivery Me thod Feeding 7 lb 2 oz (3.232 kg) 40 wks Last Filed Vital Signs Not on file Plan of Treatment Health Maintenance Due Date Last Done Comments INFLUENZA VACCINE 06/19/2020 10/05/2015, 07/10/2012, 2011 Results Not on fileafter 10/24/2019 Insurance Payer Benefit Plan / Subscriber ID Effective Dates Phone Addre ss Type Group [employer] [facility] [id number] 2016-[employer] HEALTH CHOICE EXCHANGE t EXCHANGE [employer] BCBS BCBS OUT OF STATE [id number] 2015-[employer] PPO t MISC EXCHANGE AMBETTER FROM [id number] 2019-[employer] SUPERIOR t HEALTHPLAN Advance Directives For more information, please contact: [phone] Type Date Recorded Patient Wire Roller Explanati on Advance Directives, Living Will 11/28/2017 4:36 PM and Medical Power of Manager Field Service Code Status Date Activated Date Inactivated Comments Full Code 10/08/2019 6:42 AM 10/15/2019 3:55 PM Code Status decision reached by: Patient
--- OUTSIDE RECORDS SUMMARY | 2020-10-24 12:39 | XMS REPORT | Continuity of Care Document ---
:[address] 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 6-08 Methodi 00:00: st 00 Episodic Episodic Disease [...] Physici ans H/O H/O Disease Active Overview: Dexterto n intravenou intravenou Patient M gary s drug use s drug use states [...] history of [facility] ity of lung cancer [place] Physici ans Natural brother ADD / ADHD [place] [facility] Natural father Mental illness [place] [facility] Natural father Other [place] [employer] Maternal Bipolar disorder [place] grandfather [employer] Maternal Depression [place] grandfather [employer] Maternal No Known Problems [place] grandmother [employer] Natural mother Depression [place] [employer] Paternal Hyperlipidemia [place] grandfather [employer] Paternal Hypertension [place] grandfather [employer] Paternal Other [place] grandfather [employer] Family member Colon cancer [place] [employer] Family member Prostate cancer [place] [facility] Social History Social Habit Start Date Stop Date Quantity Comments Source History of Cigarette Smoker [place] [facility] tobacco use Sex Assigned At [facility] ethodist Tobacco use and 2017-11-28 2017-11-28 Former user [place] [facility] exposure 00:00:00 00:00:00 Alcohol intake 2017-11-28 2017-11-28 Current drinker Dextert on [facility] 00:00:00 00:00:00 of alcohol (finding) Tobacco Comment 2017-05-24 2017-05-24 restarted [facility] ethodist 00:00:00 00:00:00 05/22/2017 Alcohol Comment 2017-04-13 2017-04-13 social [facility] ethodist 00:00:00 00:00:00 Smoking Status Start Date Stop Date Source Current every day smoker 2017-11-28 00:00:00 Herbert wynne [employer] Medications Ordered Filled Start Stop Current Ordering Indication Dosage Frequency Signature Comments Components Source Medication Medication Date Date Medication? Clinician (SIG) Name Name ARIPiprazol 2018-11 2019- No depression 2mg QD Take 1 Burce garcia (ABILIFY) 12-15 treatment tablet (2 Methodi 2 MG tablet 00:00: 23:59 adjunct mg total) st 00 :00 by mouth nightly for 30 days .Additiona l Medication s to Treat Depression . nicotine 2018-11 2019- No smoking 1{patch QD Place 1 [place] (NICODERM 12-15 cessation } patch on Methodi [...] Tablet 5-23 TABLET ity of 00:00: DAILY. 00 Physici ans Nicorette Nicorette Yes KELLY 1 CHEW 1 [facility] Starter [...] Source Name Name Tdap (Adacel) 2018-04-[address] [facility] 08:31:00 [place] [facility] FLUZONE QUAD 2015-10-05 Completed [place] 00:00:00 [facility] Meningococcal ACYW, 2015-07-09 Completed [facility] on Unspecified 00:00:00 [employer] HPV, Unspecified 2013-03-31 Completed [place] 00:00:00 [employer] HPV, Unspecified 2012-10-24 Completed [place] 00:00:00 [employer] HPV, Unspecified 2012-07-10 Completed [place] 00:00:00 [facility] FLUZONE QUAD 2012-07-10 Completed [place] 00:00:00 [facility] FLUZONE QUAD 2012-01-09 Completed [place] 00:00:00 [facility] Hep A, Unspecified 2011-06-22 Completed [place] 00:00:00 [facility] Meningococcal ACYW, 2011-06-22 Completed [facility] Tdap 2011-06-22 Completed [place] 00:00:00 [facility] DTaP, Unspecified 2003-04-08 Completed [place] 00:00:00 [facility] IPV 2003-04-08 Completed [place] 00:00:00 [facility] MMR 2003-04-08 Completed [place] 00:00:00 [facility] Hep A, Unspecified 2001-12-10 Completed [place] 00:00:00 [facility] DTaP, Unspecified 2000-03-28 Completed [place] 00:00:00 [facility] Hep B, Unspecified 2000-03-28 Completed [place] 00:00:00 [facility] Hib (PRP-T) 2000-03-28 Completed [place] 00:00:00 [facility] IPV 2000-03-28 Completed [place] 00:00:00 [facility] MMR 2000-03-28 Completed [place] 00:00:00 [facility] Varicella 2000-03-28 Completed [place] 00:00:00 [employer] DTaP, Unspecified 1999 Completed [place] 00:00:00 [facility] Hib (PRP-T) 1999 Completed [place] 00:00:00 [employer] IPV 1999 Completed [place] 00:00:00 [facility] DTP / HiB 1999 Completed [place] 00:00:00 [facility] IPV 1999 Completed [place] 00:00:00 [facility] Hep B, Unspecified 1999 Completed [place] 00:00:00 [facility] Hep B, Unspecified 1999 Completed [place] 00:00:00 [facility] Vital Signs Vital Name Observation Time Observation Value Comments Source BP Systolic 2018-04-10 115 mm[Hg] Location: [facility] 08:10:00 Position: [place] Physician s Sitting BP Diastolic 2018-04-10 74 mm[Hg] Location: [facility] 08:10:00 Position: [place] Physician s Sitting Height 2018-04-10 72 [in_us] [facility] 08:10:00 [place] Physician s Weight 2018-04-10 158 [lb_av] [facility] 08:10:00 [place] Physician s Body Mass Index 2018-04-10 21.43 kg/m2 [facility] Calculated 08:10:00 [place] Physician s Temperature 2018-04-10 97.3 [degF] Method: [facility] 08:10:00 Tympanic [place] Physician s Heart Rate 2018-04-10 48 /min [facility] 08:10:00 [place] Physician s Procedures Procedure Date / Time Performing Clinician Source Performed [L] Trichomonas Culture 2018-04-10 00:00:00 [facility] Physicians [LH] GC/CT by Amp Det 2018-04-10 00:00:00 [facility] (APTIMA) Physicians [QH] HIV AB, HIV 1/2, 2018-04-10 00:00:00 [facility] EIA, WITH REFLEXES Physicians [QL] RPR 2018-04-10 00:00:00 [facility] Physicians [QL] HEPATITIS PANEL 2018-04-10 00:00:00 [facility] Physicians [QL] TSH, 3RD 2018-04-10 00:00:[address] [place] [address] [facility] GENERATION W/REFLEX TO Physician s FT4 History of Dental [facility] surgery Physicians History of Orchiopexy [facility] Physicians Plan of Care Planned Activity Planned Date Details Comments Source Future Scheduled 2020-06-19 INFLUENZA VACCINE [place] [facility] Test 00:00:00 [code = INFLUENZA VACCINE] Encounters Start End Encounter Admission Attending Care Care Encounter Source Date/Time Date/Time Type Type Clinicians Facility Department ID 2020-06-29 2020-06-29 Emergency [facility] [id number] 15:20:00 18:23:00 Audra Kaye [id number] [place] [id number] [place] [id number] 2018-08-06 2018-08-06 Appointmen TIKI FONSECA [id number] Univers 14:00:00 14:00:00 t; JULIO FONSECA ity of [place]ILESH, M.D. [place] M.D. Physici ans 2018-06-11 2018-06-11 TIKI Cruz UTP [id number] Univers 08:15:00 08:15:00 t; KELLY ESPINOZA D.O. ity of KERRY, [place] D.O. Physici ans 2018-06-10 2018-06-10 AppointTIKI Benjamin [facility] [id number] Univers 08:00:00 08:00:00 t; JULIO FONSECA, Mohan M.D. [place] Matt Physici ans 2018-04-10 2018-04-10 Appointmen TIKI ESPINOZA [id number] Univers 08:00:00 08:00:00 t; KELLY ESPINOZA D.O. [facility] nafisa Cunningham, [place] Soniya Physici ans Results Test Description Test Time Test Comments Results Result Comments Source [QL] TSH, 3RD GENERATION W/REFLEX TO FT4 2018-04-10 09:01:0 1 Test Item Value Reference Range Interpretation Comme nts TSH (test code = 27795-8) 1.760 {uIU/ml} 0.360-3.740 [facility] Physicians[[facility]] HEPATITIS [id number] 09:01:01 Test Item Value Reference Range Interpretation Comments Hepatitis B Surface Antigen (test Negative Negative code = 5195-3) Hepatitis C Antibody (test code = Negative 17914-8) Hepatitis B Core IgM (test code = Negative Negative 64531-3) Hepatitis A IgM (test code = Negative Negative 03260-9) [facility] Physicians[] HIV AB, HIV 1/2, EIA, WITH [id number] 09:01:01 Test Item Value Reference Range Interpretation Comments HIV Ag/Ab 4th Gen (test code = Negative Negative 41194-0) [facility] Physicians[[facility]] [id number] 09:01:01 Test Item Value Reference Range Interpretation Comments RPR (test code = 71959-7) Non-Reactive Non-Reactive [facility] Physicians[] GC/CT by Amp Det (APTIMA)2018-04-10 09:01:01 Test Item Value Reference Range Interpretation Comments Source APTIMA Urine (test code = Source APTIMA) N gonorrhea by Amp Negative Negative The APTIM A assay is a Det (APTIMA) (test target am plification code = 07953-1) nucleic acid probe test utilizingtarget capture for the qualitative detection and differentia tion of ribosomalRNA fr om Neisseria gonorrhoeae to aid in the diagnosis of di sease fromsymptomatic and asymptomatic in dividuals using the PANTH ER System.This ass ay utilizes FDA cleared IVD reagents. Performance juani racteristics havebeen verifi ed by the [employer] [facility] with in [facility].The [employer] ecular Diagnostic Labo taylorory is authorized unde r the Clinical LaboratoryImpro vement Amendments of 1 988 (CLIA-88) to pe rform high complexity test ing. C trachomatis by Negative Negative The APTIMA assay is a Amp Det (APTIMA) target ampl ification (test code = nucleic acid pr obe test 03115-1) utilizingtarget capture for the qualitative detection and differentia tion of ribosomalRNA fr om Chlamydia trachomatis to aid in the diagnosis of di sease fromsymptomatic and asymptomatic in dividuals using the [employer] ER System.This ass ay utilizes FDA cleared IVD reagents. Performance juani racteristics havebeen verifi ed by the [employer] [facility] with in [facility].The [employer] ecular Diagnostic Labo taylorory is authorized unde r the Clinical LaboratoryImpro vement Amendments of 1 988 (CLIA-88) to pe rform high complexity test ing. [facility]
--- NOTE | 2020-10-24 14:00 | EDPHYS ---
Physician Documentation [facility] Name: Marek Anderson Age: 20 yrs Sex: Male : 2000 Arrival Date: 10/24/2020 Time: 12:38 Bed 30 Private MD: ED Physician Jignesh Esquivel HPI: 10/24 13:35 This 20 yrs old Male presents to ER via Ambulatory with complaints of Foreign cp Body In Eye - metal. 13:35 The patient is experiencing foreign body sensation, to the right eye, caused by metal cp fragment. Onset: The symptoms/episode began/occurred 2 day(s) ago. Duration: the symptoms are continuous. Patient does not utilize any form of vision correction. Historical: - Allergies: 13:07 No Known Allergies; ca1 - Home Meds: 13:07 None [Active]; ca1 - PMHx: 13:07 None; ca1 - PSHx: 13:07 None; ca1 - Immunization history:: Adult Immunizations up to date, Flu vaccine is not up to date. - Social history:: Smoking status: Patient reports the use of cigarette tobacco products, smokes one-half pack cigarettes per day. ROS: 13:36 Constitutional: Negative for body aches, chills, fever. cp 13:36 Eyes: Positive for foreign body sensation, of the right eye, Negative for discharge, visual disturbance. 13:36 Cardiovascular: Negative for chest pain. 13:36 Respiratory: Negative for cough, shortness of breath, wheezing. 13:36 Abdomen/GI: Negative for abdominal pain, nausea, vomiting, and diarrhea. 13:36 Skin: Negative for rash. 13:36 Neuro: Negative for headache. 13:36 All other systems are negative. Exam: 13:40 Constitutional: The patient appears in no acute distress, alert, awake, comfortable, cp well developed, well nourished. 13:40 Head/Face: Normocephalic, atraumatic. cp 13:40 Eyes: Periorbital structures: appear normal, Pupils: equal, round, and reactive to cp light and accomodation, Conjunctiva: normal, no exudate, no injection, Corneas: abrasion, is not appreciated, foreign body, on the right, at 9 o'clock, a piece of metal, a fluorescein strip employed to appreciate the findings, Lids and lashes: appear normal, bilaterally. 13:40 ENT: External ear(s): are unremarkable, Nose: is normal, Mouth: Lips: moist, Oral mucosa: moist. 13:40 Skin: no rash present. cp Vital Signs: 13:04 BP 128 / 77; Pulse 62; Resp 16 S; Temp 97.6(TE); Pulse Ox 98% on R/A; Weight 72.57 kg ca1 (R); Height 6 ft. 1 in. (185.42 cm) (R); Pain 6/10; 13:04 Body Mass Index 21.11 (72.57 kg, 185.42 cm) ca1 MDM: 13:29 Patient medically screened. cp 13:45 Differential diagnosis: Corneal abrasion of right eye. Corneal ulcer of right eye. cp Foreign body in right eye. Infectious conjunctivitis in right eye. 14:00 Data reviewed: vital signs, nurses notes, and as a result, I will discharge patient. cp 14:00 Counseling: I had a detailed discussion with the patient and/or guardian regarding: the cp historical points, exam findings, and any diagnostic results supporting the discharge/admit diagnosis, to return to the emergency department if symptoms worsen or persist or if there are any questions or concerns that arise at home. Response to treatment: the patient's symptoms have markedly improved after treatment, and as a result, I will discharge patient. 12 13:29 Order name: Visual Acuity; Complete Time: 13:47 cp 12 13:29 Order name: Eye Tray; Complete Time: 13:47 cp 12 13:29 Order name: Fluoresene Opth strip; Complete Time: 13:47 cp Administered Medications: 13:52 Drug: Tetracaine Drops 0.5 % 1 drops {Note: administered by JESSICA Lauren.} Route: ss Ophthalmic; Site: right eye; 13:57 Drug: Gentamicin Drops 0.3 % 1 drops Route: Ophthalmic; Site: right eye; ss Disposition: 14:20 Chart complete. cp 14:35 Co-signature as Attending Physician, Jignesh Esquivel MD. rn Disposition: 10/24/20 14:00 Discharged to Home. Impression: Foreign body in cornea, right eye. - Condition is Stable. - Discharge Instructions: Eye Foreign Body. - Prescriptions for Gentamicin 0.3 % Ophthalmic Drops - instill 1 drop by OPHTHALMIC route every 4 hours for 7 days; 1 bottle. - Medication Reconciliation Form, Thank You Letter, Antibiotic Education, Prescription Opioid Use form. - Follow up: Viviana Doe MD; When: 1 - 2 days; Reason: Recheck today's complaints. - Problem is new. - Symptoms have improved. Signatures: Jignesh Esquivel MD MD rn Smirch, Shelby, RN RN Aram Bull PA PA cp Caitlin Woo RN RN [facility] Corrections: (The following items were deleted from the chart) 14:17 14:00 10/24/2020 14:00 Discharged to Home. Impression: Foreign body in cornea, right ss eye. Condition is Stable. Forms are Medication Reconciliation Form, Thank You Letter, Antibiotic Education, Prescription Opioid Use. Follow up: Viviana Doe; When: 1 - 2 days; Reason: Recheck today's complaints. Problem is new. Symptoms have improved. cp
--- NOTE | 2020-10-24 14:00 | ER ---
Nurse's Notes [facility] Name: Mraek Anderson Age: 20 yrs Sex: Male : 2000 Arrival Date: 10/24/2020 Time: 12:38 Bed 30 Private MD: Diagnosis: Foreign body in cornea, right eye Presentation: 10/24 13:04 Chief complaint: Patient states: A piece of metal shot up R into my R eye since Sunday. ca1 It's irritating. Denies blurring of vision on R eye. Coronavirus screen: Client denies travel out of the [place] in the last 14 days. At this time, the client does not indicate any symptoms associated with coronavirus-19. Ebola Screen: Patient negative for fever greater than or equal to 101.5 degrees Fahrenheit, and additional compatible Ebola Virus Disease symptoms Patient denies exposure to infectious person. Patient denies travel to an Ebola-affected area in the 21 days before illness onset. No symptoms or risks identified at this time. Initial Sepsis Screen: Does the patient meet any 2 criteria? No. Patient's initial sepsis screen is negative. Does the patient have a suspected source of infection? No. Patient's initial sepsis screen is negative. Risk Assessment: Do you want to hurt yourself or someone else? Patient reports no desire to harm self or others. Onset of symptoms was October 24, 2020. 13:04 Method Of Arrival: Ambulatory ca1 13:04 Acuity: RASHMI 2 ca1 Historical: - Allergies: 13:07 No Known Allergies; ca1 - Home Meds: 13:07 None [Active]; ca1 - PMHx: 13:07 None; ca1 - PSHx: 13:07 None; ca1 - Immunization history:: Adult Immunizations up to date, Flu vaccine is not up to date. - Social history:: Smoking status: Patient reports the use of cigarette tobacco products, smokes one-half pack cigarettes per day. Screenin:23 Abuse screen: Denies threats or abuse. Denies injuries from another. Nutritional ss screening: No deficits noted. Tuberculosis screening: Never had TB. Fall Risk None identified. Assessment: 13:23 General: Appears in no apparent distress. comfortable, Behavior is calm, cooperative. ss Pain: Complains of pain in right eye Pain currently is 6 out of 10 on a pain scale. Pain began 2-3 days ago. Is continuous. Neuro: Level of Consciousness is awake, alert, obeys commands, Oriented to person, place, time, situation. Respiratory: Airway is patent Respiratory effort is even, unlabored, Respiratory pattern is regular, symmetrical. GI: Patient currently denies diarrhea, nausea, vomiting. EENT: very small dark spec noted just lateral of IRIS. Derm: Skin is intact, is healthy with good turgor, Skin is dry, Skin is pink, warm \T\ dry. normal. Vital Signs: 13:04 BP 128 / 77; Pulse 62; Resp 16 S; Temp 97.6(TE); Pulse Ox 98% on R/A; Weight 72.57 kg ca1 (R); Height 6 ft. 1 in. (185.42 cm) (R); Pain 6/10; 13:04 Body Mass Index 21.11 (72.57 kg, 185.42 cm) ca1 ED Course: 12:38 Patient arrived in ED. as 13:06 Triage completed. ca1 13:07 Arm band placed on right wrist. ca1 13:23 Shawanda Christopher RN is Primary Nurse. ss 13:23 Patient has correct armband on for positive identification. Bed in low position. Call ss light in reach. 13:24 Aram Bull PA is PHCP. cp 13:24 Jignesh Esquivel MD is Attending Physician. cp 13:55 Viviana Doe MD is Referral Physician. cp 14:16 No provider procedures requiring assistance completed. Patient did not have IV access ss during this emergency room visit. Administered Medications: 13:52 Drug: Tetracaine Drops 0.5 % 1 drops {Note: administered by JESSICA Lauren.} Route: ss Ophthalmic; Site: right eye; 13:57 Drug: Gentamicin Drops 0.3 % 1 drops Route: Ophthalmic; Site: right eye; ss Outcome: 14:00 Discharge ordered by MD. cp 14:16 Discharged to home ambulatory. ss 14:16 Condition: good 14:16 Discharge instructions given to patient, Instructed on discharge instructions, follow up and referral plans. medication usage, Demonstrated understanding of instructions, follow-up care, medications, Prescriptions given X 1. 14:17 Patient left the ED. Signatures: Nery Sahni Shelby, RN RN Aram Bull PA PA cp Acob, Caitlin, RN RN ca1
[2020-10-24] MEDS ORDERED: TETRACAINE HCL 0.5% 4ML OPTH ONE (14:02)
[2020-10-24] MEDS ORDERED: FLUORESCEIN SODIUM 1 MG/WRAP ONE (14:02)
[2020-10-24] MEDS ORDERED: GENTAMICIN 0.3% OPTH DROP 5ML ONE (14:08)
[2020-10-28 10:03] VITALS: BP 128/77; TEMP 97.6; O2SAT 98
== END 2020-10-24 14:17 | disposition home or self-care (01) ==
LOC: ER 12:37
DX: T15.01XA Foreign body in cornea, right eye, initial encounter (principal); F17.210 Nicotine dependence, cigarettes, uncomplicated
CPT/HCPCS: 99283

== ENCOUNTER 2020-12-04 12:40 | Emergency (ER) | payer SELFPAY ==
--- OUTSIDE RECORDS SUMMARY | 2020-12-04 12:42 | XMS REPORT | Clinical Summary ---
:2000 Author Organization [facility] Address [address] [place] [address] Care Team Providers Name Role Phone MD Maria A Primary Care Provider Allergies No Known Active Allergies Medications Medication Sig Dispensed Refills Start Date End Date Status ABSORICA 40 mg Take 40 mg by 0 05/02/2017 Active capsuleIndications: mouth daily. severe recalcitrant nodular acne Active Problems Problem Noted Date Suicidal ideation [...] Health Maintenance Due Date Last Done Comments COVID-19 VACCINE (1 of 2) 2015 INFLUENZA VACCINE 06/19/2020 10/05/2015, 07/10/2012, 2011 Results Not on fileafter 12/04/2019 Insurance Payer Benefit Plan / Subscriber ID Effective Dates Phone Addre ss Type Group [facility] [id number] 2016-[employer] Exchange HEALTH CHOICE EXCHANGE t EXCHANGE MARKETPLACE BCBS BCBS OUT OF STATE [id number] 2015-[employer] PPO t MISC EXCHANGE AMBETTER FROM [id number] 2019-[employer] SUPERIOR t HEALTHPLAN Advance Directives For more information, please contact: [phone] Type Date Recorded 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
--- OUTSIDE RECORDS SUMMARY | 2020-12-04 12:42 | XMS REPORT | Continuity of Care Document ---
:2000 Author Organization [facility] t Address [address] [place] [address] Care Team Providers Name Role Phone Maria A SINCLAIR Primary Care Physician Tosha Vilchis Attending Clinician RAYMUNDO Attending Clinician Unavailable HIGLORIAKS Attending Clinician Unavailable Problems Condition Condition Condition Status Onset Resolution Last Treating Co mments Source Name Details Category Date Date Treatment Clinician Date Suicidal Suicidal Disease Active 2018-11 [place] on ideation ideation 20 Method i 00:00: st 00 Depression Depression Disease Active 2018-11 [place] 1-20 Methodi 00:00: st 00 Cystic Cystic Disease Active [place] acne acne 6-08 Methodi 00:00: st 00 Episodic Episodic Disease Active Overview: [facility] mood mood 2-04 History Methodi disorder disorder [...] Physici ans H/O H/O Disease Active Overview: [place] intravenou intravenou Patient M gary reid drug use s drug use states he [...] history of Univers ity of lung cancer [place] Physici [facility] Natural brother ADD / ADHD [place] [facility] Natural father Mental illness [place] Natural father Other [place] Maternal Bipolar disorder [place] grandfather Buddhist Maternal Depression [place] grandfather Buddhist Maternal No Known Problems [place] grandmother Buddhist Natural mother Depression [place] Paternal Hyperlipidemia [place] grandfather Buddhist Paternal Hypertension [place] grandfather Buddhist Paternal Other [place] grandfather Buddhist Family member Colon cancer [place] [facility] Family member Prostate cancer [place] Buddhist Social History Social Habit Start Date Stop Date Quantity Comments Source History of Cigarette Smoker [facility] tobacco use Sex Assigned At [facility] ethodi Tobacco use and 2017-11-28 2017-11-28 Former user [place] [facility] exposure 00:00:00 00:00:00 Alcohol intake 2017-11-28 2017-11-28 Current drinker [place] Buddhist 00:00:00 00:00:00 of alcohol (finding) Tobacco Comment 2017-05-24 2017-05-24 restarted [facility] ethodi 00:00:00 00:00:00 05/22/2017 Alcohol Comment 2017-04-13 2017-04-13 social [facility] ethodist 00:00:00 00:00:00 Smoking Status Start Date Stop Date Source Current every day smoker 2017-11-28 00:00:00 Herbert ricci Buddhist Medications Ordered Filled Start Stop Current Ordering Indication Dosage Frequency Signature Comments Components Source Medication Medication Date Date Medication? Clinician (SIG) Name Name Centrum Centrum Yes 1 QD TAKE 1 Unive rs Oral Tablet Oral Tablet 5-23 TABLET ity of 00:00: DAILY. [place] 00 Physici ans Nicorette Nicorette Yes KELLY [...] Source Name Name Tdap (Adacel) 2018-04-10 Completed [facility] 08:31:00 [place] Phys[facility] FLUZONE QUAD 2015-10-05 Completed [place] 00:00:00 Buddhist Meningococcal ACYW, 2015-07-09 Completed [facility] HPV, Unspecified 2013-03-31 Completed [place] 00:00:00 Buddhist HPV, Unspecified 2012-10-24 Completed [place] 00:00:00 Buddhist HPV, Unspecified 2012-07-10 Completed [place] 00:00:00 Buddhist FLUZONE QUAD 2012-07-10 Completed [place] 00:00:00 Buddhist FLUZONE QUAD 2012-01-09 Completed [place] 00:00:00 Buddhist Hep A, Unspecified 2011-06-22 Completed [place] 00:[place]:00 [facility] Meningococcal ACYW, 2011-06-22 [facility] Tdap 2011-06-22 Completed [place] 00:00:00 Buddhist DTaP, Unspecified 2003-04-08 Completed [place] 00:00:00 Buddhist IPV 2003-04-08 Completed [place] 00:00:00 Buddhist MMR 2003-04-08 Completed [place] 00:00:00 Buddhist Hep A, Unspecified 2001-12-10 Completed [place] 00:00:00 [facility] DTaP, Unspecified 2000-03-28 Completed [place] 00:00:00 Buddhist Hep B, Unspecified 2000-03-28 Completed [place] 00:00:00 [facility] Hib (PRP-T) 2000-03-28 Completed [place] 00:00:00 Buddhist IPV 2000-03-28 Completed [place] 00:00:00 Buddhist MMR 2000-03-28 Completed [place] 00:00:00 Buddhist Varicella 2000-03-28 Completed [place] 00:00:00 Buddhist DTaP, Unspecified 1999 Completed [place] 00:00:00 Buddhist Hib (PRP-T) 1999 Completed [place] 00:00:00 Buddhist IPV 1999 Completed [place] 00:00:00 Buddhist DTP / HiB 1999 Completed [place] 00:00:00 Buddhist IPV 1999 Completed [place] 00:00:00 Buddhist Hep B, Unspecified 1999 Completed [place] 00:00:00 [place] Hep B, Unspecified 1999 Completed [place] 00:00:00 [facility] Vital Signs Vital Name Observation Time Observation Value Comments Source BP Systolic 2018-04-10 115 mm[Hg] Location: [facility] 08:10:00 Position: [place] Physician s Sitting BP Diastolic 2018-04-10 74 mm[Hg] Location: [facility] 08:10:00 Position: [place] Physician s Sitting Height 2018-04-10 72 [in_us] [facility] 08:10:00 [place] Physician s Weight 2018-04-10 158 [lb_av] [facility] 08:10:00 [place] Physician s Body Mass Index 2018-04-10 21.43 kg/m2 [facility] Calculated 08:10:00 [place] Physician s Temperature 2018-04-10 97.3 [degF] Method: [facility] 08:10:00 Tympanic [place] Physician s Heart Rate 2018-04-10 48 /min [facility] 08:10:00 [place] Physician s Procedures Procedure Date / Time Performing Clinician Source Performed [L] Trichomonas Culture 2018-04-10 00:00:00 [facility] Physicians [LH] GC/CT by Amp Det 2018-04-10 00:00:00 [facility] ([facility]) Physicians [QH] HIV AB, HIV 1/2, 2018-04-10 00:00:00 [facility] EIA, WITH REFLEXES Physicians [QL] RPR 2018-04-10 00:00:00 [place] [facility] Physicians [QL] HEPATITIS PANEL 2018-04-10 00:00:00 [facility] Physicians [[facility]] TSH, 3RD 2018-04-10 00:00:00 [facility] [place] GENERATION W/REFLEX TO Physician s FT4 History of Dental [facility] surgery Physicians History of Orchiopexy [facility] Plan of Care Planned Activity Planned Date Details Comments Source Future Scheduled 2020-06-19 INFLUENZA VACCINE [place] [facility] Test 00:00:00 [code = INFLUENZA VACCINE] Future Scheduled 2015 COVID-19 VACCINE (1 [place] [facility] Test 00:00:00 of 2) [code = COVID-19 VACCINE (1 of 2)] Encounters Start End Encounter Admission Attending Care Care Encounter Source Date/Time Date/Time Type Type Clinicians Facility Department ID 2020-06-29 2020-06-29 Emergency [facility] [id number] 15:20:00 18:23:00 Audra Kaye [id number] [place] [id number] [place] [id number] 2018-08-06 2018-08-06 Appointmen TIKI FONSECA [id number] Univers 14:00:00 14:00:00 t; JULIO FONSECA ity of [place], M.D. [place] Matt Physici ans 2018-06-11 2018-06-11 Appointmen TIKI ESPINOZA [id number] Univers 08:15:00 08:15:00 t; KELLY ESPINOZA D.O. ity [place], [place] Physici ans 2018-06-10 2018-06-10 Appointmen TIKI FONSECA [id number] Univers 08:00:00 08:00:00 t; JULIO FONSECA ity of [place], M.D. [place] Matt Physici ans 2018-04-10 2018-04-10 Appointmen TIKI ESPINOZA [place] [id number] Univers 08:00:00 08:00:00 t; KELLY ESPINOZA D.O. [facility] [place] Physici ans Results Test Description Test Time Test Comments Results Result Comments Source [[facility]] TSH, 3RD GENERATION W/REFLEX TO FT4 2018-04-10 09:01:0 1 Test Item Value Reference Range Interpretation Comme nts TSH (test code = 06014-7) 1.760 {uIU/ml} 0.360-3.740 [facility]] HEPATITIS [id number] 09:01:01 Test Item Value Reference Range Interpretation Comments Hepatitis B Surface Antigen (test Negative Negative code = 5195-3) Hepatitis C Antibody (test code = Negative 11478-1) Hepatitis B Core IgM (test code = Negative Negative 88194-7) Hepatitis A IgM (test code = Negative Negative 77188-8) [facility][] HIV AB, HIV 1/2, EIA, WITH [id number] 09:01:01 Test Item Value Reference Range Interpretation Comments HIV Ag/Ab 4th Gen (test code = Negative Negative 52882-8) [facility]] [id number] 09:01:01 Test Item Value Reference Range Interpretation Comments RPR (test code = 04977-8) Non-Reactive Non-Reactive [facility][] GC/CT by Amp Det ([facility])2018-04-10 09:01:01 Test Item Value Reference Range Interpretation Comments Source [facility] Urine (test code = Source [facility]) N gonorrhea by Amp Negative Negative The APTIM A assay is a Det (APTIMA) (test target am plification code = 90793-7) nucleic acid probe test utilizingtarget capture for the qualitative detection and differentia tion of ribosomalRNA fr om Neisseria gonorrhoeae to aid in the diagnosis of di sease fromsymptomatic and asymptomatic in dividuals using the [facility] ER System.This ass ay utilizes FDA cleared IVD reagents. Performance juani [employer] eleazar riley ed by the Molecular Diagn [facility] with in [facility].The [facility] Diagnostic Labo [facility] is authorized unde r the Clinical LaboratoryImpro vement Amendments of 1 988 (CLIA-88) to pe rform high complexity test ing. C trachomatis by Negative Negative The APTIMA assay is a Amp Det (APTIMA) target ampl ification (test code = nucleic acid pr obe test 57144-7) utilizingtarget capture for the qualitative detection and differentia tion of ribosomalRNA fr om Chlamydia trachomatis to aid in the diagnosis of di sease fromsymptomatic and asymptomatic in dividuals using the [facility] ER System.This ass ay utilizes FDA cleared IVD reagents. Performance [employer] eleazar riley ed by the Molecular Diagn ostic Laboratory with in [facility].The Mol ecular Diagnostic Labo greg is authorized unde r the Clinical LaboratoryImpro vement Amendments of 1 988 (CLIA-88) to pe rform high complexity test ing. [facility]
[2020-12-04 13:28] LABS: Absolute Lymphocytes (CBC) 2.4 K/uL (0.7-4.9); Basophils % 0.8 % (0-1.3); Hematocrit 43.9 % (39.6-49.0); Lymphocytes % 40.9 % (15.3-44.8); MPV 7.6 fL (7.6-11.3); RBC Red Blood Cell Count 4.88 M/uL (4.33-5.43)
[2020-12-04] MEDS ORDERED: IPRATROPIUM BROM 0.5MG/2.5ML ONE (13:38)
[2020-12-04] MEDS ORDERED: ALBUTEROL 2.5 MG/3 ML NEB SOL ONE (13:38)
[2020-12-04 13:41] LABS: BUN Blood Urea Nitrogen 12 mg/dL (7-18); Bicarbonate 31 mmol/L (21-32); Glucose Level 102 mg/dL (74-106); Potassium 3.8 mmol/L (3.5-5.1); Sodium Level 139 mmol/L (136-145)
--- NOTE | 2020-12-04 13:50 | RAD REPORT ---
EXAM DESCRIPTION: RAD - Chest Single View - 12/04/2020 1:39 pm CLINICAL HISTORY: Congestion;Cough Chest pain. COMPARISON: No comparisons FINDINGS: Portable technique limits examination quality. The lungs are grossly clear. The heart is normal in size. No displaced fractures. IMPRESSION: No acute intrathoracic process suspected.
[2020-12-04 14:22] LABS: SARS-COV-2 RT PCR NEGATIVE (NEGATIVE)
--- NOTE | 2020-12-04 14:36 | ER ---
Nurse's Notes [facility] Name: Marek Anderson Age: 20 yrs Sex: Male : 2000 Arrival Date: 12/04/2020 Time: 12:42 Bed 20 Private MD: Diagnosis: Bronchitis, not specified as acute or chronic;Shortness of breath;Viral infection, unspecified Presentation: 12/04 12:50 Chief complaint: Patient states: Cough for 5 days, SOB getting worse each day. No known ll1 fever. Coronavirus screen: Client denies travel out of the [place] in the last 14 days. cough unrelated to allergies, difficulty breathing, shortness of breath, Client presents with at least one sign or symptom that may indicate coronavirus-19. Standard/surgical mask placed on the client. Ebola Screen: Patient denies travel to an Ebola-affected area in the 21 days before illness onset. Initial Sepsis Screen: Does the patient meet any 2 criteria? RR > 20 per min. No. Patient's initial sepsis screen is negative. Does the patient have a suspected source of infection? Yes: Productive cough/pneumonia. Risk Assessment: Do you want to hurt yourself or someone else? Patient reports no desire to harm self or others. Onset of symptoms was November 29, 2020. 12:50 Method Of Arrival: Ambulatory ll1 12:50 Acuity: RASHMI 2 ll1 Triage Assessment: 12:52 General: Appears uncomfortable, Behavior is calm, cooperative, appropriate for age. ll1 Pain: Complains of pain in chest Quality of pain is described as aching. Neuro: No deficits noted. Cardiovascular: Reports chest pain, shortness of breath, Capillary refill Clubbing of nail beds is absent JVD is absent Patient's skin is warm and dry. Respiratory: Reports shortness of breath cough that is Airway is patent Trachea midline Respiratory effort is even, labored, Respiratory pattern is symmetrical, tachypnea Onset: The symptoms/episode began/occurred 5 days ago, the patient has moderate shortness of breath. Historical: - Allergies: 12:51 No Known Allergies; ll1 - PMHx: 12:51 None; ll1 - PSHx: 12:51 None; ll1 - Immunization history:: Flu vaccine is not up to date. - Social history:: Smoking status: Patient reports the use of cigarette tobacco products, smokes one-half pack cigarettes per day. Screenin:14 Abuse screen: Denies threats or abuse. Nutritional screening: No deficits noted. vg1 Tuberculosis screening: No symptoms or risk factors identified. Fall Risk None identified. Assessment: 13:05 General: Appears in no apparent distress. Behavior is calm, cooperative. Pain: vg1 Complains of pain in chest Pain currently is 5 out of 10 on a pain scale. Quality of pain is described as patient states sore from coughing. Aggravated by coughing. Neuro: Level of Consciousness is awake, alert, obeys commands, Oriented to person, place, time, situation. Cardiovascular: Patient's skin is warm and dry. Respiratory: Airway is patent Respiratory effort is even, unlabored, Respiratory pattern is regular, symmetrical, Respiratory: Reports shortness of breath cough that is non-productive. GI: Patient currently denies diarrhea, nausea, vomiting. : No signs and/or symptoms were reported regarding the genitourinary system. EENT: No signs and/or symptoms were reported regarding the EENT system. Derm: Skin is intact, is healthy with good turgor. Musculoskeletal: Circulation, motion, and sensation intact. 14:27 Reassessment: Patient appears in no apparent distress at this time. Patient and/or vg1 family updated on plan of care and expected duration. Pain level reassessed. Patient is alert, oriented x 3, equal unlabored respirations, skin warm/dry/pink. Patient states feeling better. Vital Signs: 12:50 BP 133 / 70; Pulse 75; Resp 22; Temp 97.8; Pulse Ox 91% on R/A; Weight 72.57 kg; Height ll1 6 ft. 1 in. (185.42 cm); Pain 7/10; 13:14 BP 124 / 73; Pulse 65; Resp 18; Pulse Ox 100% on 3 lpm NC; vg1 14:24 BP 115 / 61; Pulse 94; Resp 18; Pulse Ox 97% on R/A; vg1 14:45 Pulse Ox 96% on R/A; em 14:52 Pulse Ox 95% on R/A; em 12:50 Body Mass Index 21.11 (72.57 kg, 185.42 cm) ll1 14:45 sitting in the bed em 14:52 after ambulating about 40 feet em ED Course: 12:42 Patient arrived in ED. rg4 12:51 Triage completed. ll1 12:52 Arm band placed on Patient placed in an exam room, on a stretcher. ll1 12:53 Narciso Skelton MD is Attending Physician. kdr 12:54 Patient has correct armband on for positive identification. Bed in low position. Call ll1 light in reach. Side rails up X 1. Pulse ox on. NIBP on. 13:05 Lynn Alexis, RN is Primary Nurse. vg1 13:10 Oxygen administration via nasal cannula \T\ 3L/min Response to oxygen therapy: symptoms jp3 improved. 13:17 Initial lab(s) drawn, by mt, sent to lab. Inserted saline lock: 20 gauge in right jp3 forearm, using aseptic technique. Blood collected. 13:18 COVID swab sent to lab. Flu and/or RSV swab sent to lab. Strep swab sent to lab. jp3 13:40 CXR XRAY In Process Unspecified. EDMS 14:28 Throat Culture Sent. sv 14:28 COVID-19 Sent. sv 15:20 No provider procedures requiring assistance completed. IV discontinued, intact, vg1 bleeding controlled, No redness/swelling at site. Pressure dressing applied. Administered Medications: 13:38 Drug: Albuterol - atroVENT (3:1) (2.5 mg - 0.5 mg) 3 ml Route: Nebulizer; vg1 13:59 Follow up: Response: No adverse reaction vg1 14:50 Drug: SOLU-Medrol 125 mg Route: IVP; Site: right forearm; em 15:21 Follow up: Response: No adverse reaction vg1 Outcome: 14:36 Discharge ordered by . kdr 15:20 Discharged to home ambulatory. vg1 15:20 Condition: stable 15:20 Discharge instructions given to patient, Instructed on discharge instructions, follow up and referral plans. medication usage, Demonstrated understanding of instructions, follow-up care, medications, Prescriptions given X 3. 15:20 Patient left the ED. vg1 Signatures: Dispatcher [employer] Ana Laura Valero, RN RN Narciso Rizzo MD MD kdr Munoz, Edgar RN RN em Carline Alexis rg4 Donato Anderson jp3 Lynn Alexis, RN RN vg1 Jaqueline Alexander RN RN 1
--- NOTE | 2020-12-04 14:36 | EDPHYS ---
Physician Documentation [facility] Name: Marek Anderson Age: 20 yrs Sex: Male : 2000 Arrival Date: 12/04/2020 Time: 12:42 Bed 20 Private MD: ED Physician Narciso Skelton HPI: 12/04 13:49 This 20 yrs old Male presents to ER via Ambulatory with complaints of kdr Breathing Difficulty. 13:49 The patient has shortness of breath at rest, with light activity. Onset: The kdr symptoms/episode began/occurred gradually, Sunday of this week. Duration: The symptoms are continuous, and are steadily getting worse. The patient's shortness of breath is aggravated by coughing, exertion, light activity, talking, is alleviated by nothing. Associated signs and symptoms: Pertinent positives: chest pain. Severity of symptoms: At their worst the symptoms were moderate in the emergency department the symptoms are unchanged. The patient has not experienced similar symptoms in the past. The patient has not recently seen a physician. Historical: - Allergies: 12:51 No Known Allergies; ll1 - PMHx: 12:51 None; ll1 - PSHx: 12:51 None; ll1 - Immunization history:: Flu vaccine is not up to date. - Social history:: Smoking status: Patient reports the use of cigarette tobacco products, smokes one-half pack cigarettes per day. ROS: 13:49 Constitutional: Negative for fever, chills, and weight loss, Eyes: Negative for injury, kdr pain, redness, and discharge, Neck: Negative for injury, pain, and swelling, Cardiovascular: Negative for chest pain, palpitations, and edema, Respiratory: Negative for shortness of breath, cough, wheezing, and pleuritic chest pain, Abdomen/GI: Negative for abdominal pain, nausea, vomiting, diarrhea, and constipation, Back: Negative for injury and pain, MS/Extremity: Negative for injury and deformity, Skin: Negative for injury, rash, and discoloration, Neuro: Negative for headache, weakness, numbness, tingling, and seizure activity. Psych: Negative for depression, anxiety, suicide ideation, homicidal ideation, and hallucinations, Allergy/Immunology: Negative for hives, rash, and allergies, Endocrine: Negative for neck swelling, polydipsia, polyuria, polyphagia, and marked weight changes, Hematologic/Lymphatic: Negative for swollen nodes, abnormal bleeding, and unusual bruising. Exam: 13:49 Constitutional: This is a well developed, well nourished patient who is awake, alert, kdr and in no acute distress. Head/Face: Normocephalic, atraumatic. Eyes: Pupils equal round and reactive to light, extra-ocular motions intact. Lids and lashes normal. Conjunctiva and sclera are non-icteric and not injected. Cornea within normal limits. Periorbital areas with no swelling, redness, or edema. Neck: Trachea midline, no thyromegaly or masses palpated, and no cervical lymphadenopathy. Supple, full range of motion without nuchal rigidity, or vertebral point tenderness. No Meningismus. Chest/axilla: Normal chest wall appearance and motion. Nontender with no deformity. No lesions are appreciated. Cardiovascular: Regular rate and rhythm with a normal S1 and S2. No gallops, murmurs, or rubs. Normal PMI, no JVD. No pulse deficits. Abdomen/GI: Soft, non-tender, with normal bowel sounds. No distension or tympany. No guarding or rebound. No evidence of tenderness throughout. Back: No spinal tenderness. No costovertebral tenderness. Full range of motion. Skin: Warm, dry with normal turgor. Normal color with no rashes, no lesions, and no evidence of cellulitis. MS/ Extremity: Pulses equal, no cyanosis. Neurovascular intact. Full, normal range of motion. Neuro: Awake and alert, GCS 15, oriented to person, place, time, and situation. Cranial nerves II-XII grossly intact. Motor strength 5/5 in all extremities. Sensory grossly intact. Cerebellar exam normal. Normal gait. Psych: Awake, alert, with orientation to person, place and time. Behavior, mood, and affect are within normal limits. 13:49 Respiratory: mild respiratory distress is noted, moderate respiratory distress is kdr noted, Respirations: normal, Breath sounds: decreased breath sounds. Vital Signs: 12:50 BP 133 / 70; Pulse 75; Resp 22; Temp 97.8; Pulse Ox 91% on R/A; Weight 72.57 kg; Height ll1 6 ft. 1 in. (185.42 cm); Pain 7/10; 13:14 BP 124 / 73; Pulse 65; Resp 18; Pulse Ox 100% on 3 lpm NC; vg1 14:24 BP 115 / 61; Pulse 94; Resp 18; Pulse Ox 97% on R/A; vg1 14:45 Pulse Ox 96% on R/A; em 14:52 Pulse Ox 95% on R/A; em 12:50 Body Mass Index 21.11 (72.57 kg, 185.42 cm) ll1 14:45 sitting in the bed em 14:52 after ambulating about 40 feet em MDM: 14:36 Patient medically screened. kdr 17:47 Data reviewed: vital signs, nurses notes, lab test result(s), radiologic studies. kdr 12/04 12:55 Order name: COVID-19 kdr 12/04 12:55 Order name: Strep; Complete Time: 14:33 kdr 12/04 12:55 Order name: CBC with Diff kdr 12/04 12:55 Order name: Chem 7; Complete Time: 14:33 kdr 12/04 12:55 Order name: Document PUI#; Complete Time: 13:06 [facility] 12/04 12:55 Order name: Droplet/Contact Precautions; Complete Time: 13:06 kdr 12/04 13:07 Order name: CXR XRAY; Complete Time: 14:33 kdr 12/04 13:53 Order name: Throat Culture EDMS 12/04 14:23 Order name: COVID-19/FLU A+B; Complete Time: 14:33 EDMS 12/04 14:33 Order name: Manual Differential EDMS 12/04 12:55 Order name: Labs collected and sent; Complete Time: 13:24 [facility] 12/04 12:55 Order name: Notify Health Dept [phone]/ ; Complete Time: 13:06 kdr 12/04 12:55 Order name: O2 Per Protocol; Complete Time: 13:06 kdr Administered Medications: 13:38 Drug: Albuterol - atroVENT (3:1) (2.5 mg - 0.5 mg) 3 ml Route: Nebulizer; vg1 13:59 Follow up: Response: No adverse reaction vg1 14:50 Drug: SOLU-Medrol 125 mg Route: IVP; Site: right forearm; em 15:21 Follow up: Response: No adverse reaction vg1 Disposition: 12/04/20 14:36 Discharged to Home. Impression: Bronchitis, not specified as acute or chronic, Shortness of breath, Viral infection, unspecified. - Condition is Stable. - Discharge Instructions: Shortness of Breath, Psio-wp-Ddlj, Acute Bronchitis, Qvfj-rp-[id number], Upper Respiratory Infection, Adult, Mbrc-fo-Hztn. - Prescriptions for prednisone 10 mg Oral tablet - take 2 tablet by ORAL route 2 times per day for 5 days Take 2 tabs BID for five days then one tab BID for 5 days. Disp QS; 30 tablet. Tessalon Perles 100 mg Oral Capsule - take 1 capsule by ORAL route every 8 hours As needed; 15 capsule. Albuterol Sulfate 90 mcg/actuation - inhale 1-2 puff by INHALATION route every 4-6 hours; 1 Inhaler. - Medication Reconciliation Form, Thank You Letter form. - Follow up: Private Physician; When: 2 - 3 days; Reason: If symptoms return, Further diagnostic work-up, Recheck today's complaints, Continuance of care, Re-evaluation by your physician. - Problem is new. - Symptoms have improved. Signatures: Dispatcher [employer] [facility] Narciso Skelton MD MD [facility] Javon Ng, CINTHYA RN Lynn Barbosa RN RN vg1 Jaqueline Alexander RN RN ll1 Corrections: (The following items were deleted from the chart) 13:37 12:55 CORONAVIRUS ordered. [facility] 13:37 12:55 Influenza Screen (A \T\ B)+BA.LAB.BRZ ordered. [facility] 13:53 13:49 Constitutional: This is a well developed, well nourished patient who is awake, kdr alert, and in no acute distress. Head/Face: Normocephalic, atraumatic. Eyes: Pupils equal round and reactive to light, extra-ocular motions intact. Lids and lashes normal. Conjunctiva and sclera are non-icteric and not injected. Cornea within normal limits. Periorbital areas with no swelling, redness, or edema. Neck: Trachea midline, no thyromegaly or masses palpated, and no cervical lymphadenopathy. Supple, full range of motion without nuchal rigidity, or vertebral point tenderness. No Meningismus. Chest/axilla: Normal chest wall appearance and motion. Nontender with no deformity. No lesions are appreciated. Cardiovascular: Regular rate and rhythm with a normal S1 and S2. No gallops, murmurs, or rubs. Normal PMI, no JVD. No pulse deficits. Respiratory: Lungs have equal breath sounds bilaterally, clear to auscultation and percussion. No rales, rhonchi or wheezes noted. No increased work of breathing, no retractions or nasal flaring. Abdomen/GI: Soft, non-tender, with normal bowel sounds. No distension or tympany. No guarding or rebound. No evidence of tenderness throughout. Back: No spinal tenderness. No costovertebral tenderness. Full range of motion. Skin: Warm, dry with normal turgor. Normal color with no rashes, no lesions, and no evidence of cellulitis. MS/ Extremity: Pulses equal, no cyanosis. Neurovascular intact. Full, normal range of motion. Neuro: Awake and alert, GCS 15, oriented to person, place, time, and situation. Cranial nerves II-XII grossly intact. Motor strength 5/5 in all extremities. Sensory grossly intact. Cerebellar exam normal. Normal gait. Psych: Awake, alert, with orientation to person, place and time. Behavior, mood, and affect are within normal limits. kdr 15:20 14:36 12/04/2020 14:36 Discharged to Home. Impression: Bronchitis, not specified as vg1 acute or chronic; Shortness of breath; Viral infection, unspecified. Condition is Stable. Forms are Medication Reconciliation Form, Thank You Letter, Antibiotic Education, Prescription Opioid Use. Follow up: Private Physician; When: 2 - 3 days; Reason: If symptoms return, Further diagnostic work-up, Recheck today's complaints, Continuance of care, Re-evaluation by your physician. Problem is new. Symptoms have improved. kdr
[2020-12-04] MEDS ORDERED: METHYLPREDNISOLONE 125 MG INJ ONE (15:02)
[2020-12-04 15:16] LABS: Blood Morphology Comment NOT SEEN (NOT SEEN); Platelet Estimate ADEQ
[2020-12-04 15:32] VITALS: TEMP 97.8
[2020-12-04 15:35] VITALS: BP 115/61
[2020-12-04 15:36] VITALS: O2SAT 95
== END 2020-12-04 15:20 | disposition home or self-care (01) ==
LOC: ER 12:40
DX: J40 Bronchitis, not specified as acute or chronic (principal); B34.9 Viral infection, unspecified; Z20.822 Contact with and (suspected) exposure to COVID-19; F17.210 Nicotine dependence, cigarettes, uncomplicated
CPT/HCPCS: 0240U; 36415; 71045; 80048; 85025; 87070; 87081; 96374; 99285; J2930

== ENCOUNTER 2021-07-06 13:21 | Emergency (ER) | payer SELFPAY ==
--- OUTSIDE RECORDS SUMMARY | 2021-07-06 13:24 | XMS REPORT | Continuity of Care Document ---
:2000 Author Organization [facility] t Address [address] [place] [address] Care Team Providers Name Role Phone Maria A SINCLAIR Primary Care Physician Tosha Vilchis Attending Clinician RAYMUNDO Attending Clinician Unavailable HINCKS Attending Clinician Unavailable Problems Condition Condition Condition Status Onset Resolution Last Treating Co mments Source Name Details Category Date Date Treatment Clinician Date Suicidal Suicidal Disease Active 2018-11 [facility] ideation ideation 12-08 [facility]: Hospita 00 l Depression Depression Disease Active 2018-11 M ethodi 12-08 [facility] 00:00: Hospita 00 l 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 History of depressio n and anxiety. Is following with [...] Physici ans H/O H/O Disease Active Overview: Method i intravenou intravenou Formattin st s drug use s drug use g of this Hospita in in note l remission remission might be different from the original. Patient states he was using multiple drugs including intraveno us drugs for [...] history of Univers ity of lung cancer [place] [facility] Paternal Hyperlipidemia [facility] Paternal Hypertension [facility] Paternal Other [facility] Paternal [facility] Family member Colon cancer [facility] Family member Prostate cancer [facility] Natural brother ADD / ADHD [facility] Natural father Mental illness [facility] father Other [facility] Maternal Bipolar disorder [facility] t [facility] Maternal Depression [facility] Maternal No Known Problems [facility] Natural mother Depression [facility] Social History Social Habit Start Date Stop Date Quantity Comments Source History of Cigarette Smoker [facility] tobacco use Hospital Tobacco use and 2017-11-28 2017-11-28 Former user [facility] exposure 00:00:00 00:00:00 Hospital Alcohol intake 2017-11-28 2017-11-28 Current drinker [facility] 00:00:00 00:00:00 of [facility] (finding) Tobacco Comment 2017-05-24 2017-05-24 restarted [facility] 00:00:00 00:00:00 05/22/2017 Hospital Alcohol Comment 2017-04-13 2017-04-13 social [facility] 00:00:00 00:00:00 Hospital Sex Assigned At [birth year] [facility] 00:00:00 00:00:00 Hospital Smoking Status Start Date Stop Date Source Current every day smoker 2017-11-28 00:00:00 [facility] Medications Ordered Filled Start Stop Current Ordering Indication Dosage Frequency Signature Comments Components Source Medication Medication Date Date Medication? Clinician (SIG) Name Name Centrcarolyn Shankar 2018-0 Yes 1 QD TAKE 1 Unive rs Oral Tablet Oral Tablet 5-23 TABLET ity of 00:00: DAILY. [place] 00 Physici ans Nicorette Nicorette Yes KELLY 1 CHEW 1 Univers Starter Kit Starter Kit 5-23 HINCKS PIECE ity of 2 MG 2 MG 00:00: D.O. SLOWLY AND [place] Mouth/Throa Mouth/Throa 00 INTERMITTE Physici t Gum t Gum NTLY FOR ans 30 MINUTES. REPEAT EVERY 1-2 HOURS; MAXIMUM OF 24 PIECES/DAY ABSORICA 40 2016- Yes 66610 40mg QD Take 40 mg [facility] mg capsule 6-[address] 00:00: daily. Hospita 00 l Vitamin Vitamin Yes Univers B-12 TABS B-12 TABS ity o f [place] [facility] Vitamin C Vitamin C Yes Unive rs TABS TABS ity of [place] [facility] Immunizations Ordered Immunization Filled Immunization Date Status Commen ts Source Name Name Tdap (Adacel) 2018-04-10 Completed [facility] 08:31:00 [place] [facility] FLUZONE QUAD 2015-10-05 Completed [facility] 00:[facility]:00 Hospital Meningococcal ACYW, 2015-07-09 Completed [facility] Unspecified 00:00:00 Hospital HPV, Unspecified 2013-03-31 Completed [facility] 00:00:00 Hospital HPV, Unspecified 2012-10-24 Completed [facility] 00:00:00 Hospital HPV, Unspecified 2012-07-10 Completed [facility] 00:00:00 Hospital FLUZONE QUAD 2012-07-10 Completed [facility] 00:00:00 Hospital FLUZONE QUAD 2012-01-09 Completed [facility] 00:00:00 Hospital Hep A, Unspecified 2011-06-22 Completed Method ist 00:00:00 Hospital Meningococcal ACYW, 2011-06-22 Completed [facility] Unspecified 00:00:00 Hospital Tdap 2011-06-22 Completed [facility] 00:00:00 Hospital DTaP, Unspecified 2003-04-[address] 00:00:00 Hospital IPV 2003-04-08 Completed [facility] 00:00:00 Hospital MMR 2003-04-08 Completed [facility] 00:00:00 Hospital Hep A, Unspecified 2001-12-10 Completed [facility] 00:00:00 Hospital DTaP, Unspecified 2000-03-[address] 00:00:00 Hospital Hep B, Unspecified 2000-03-28 Completed [facility] 00:00:00 Hospital Hib (PRP-T) 2000-03-28 Completed [facility] 00:00:00 Hospital IPV 2000-03-28 Completed [facility] 00:00:00 Hospital MMR 2000-03-28 Completed [facility] 00:00:00 Hospital Varicella 2000-03-28 Completed [facility] 00:00:00 Hospital DTaP, Unspecified [address] 00:00:00 Hospital Hib (PRP-T) 2000 Completed [facility] 00:00:00 Hospital IPV 2000 Completed [facility] 00:00:00 Hospital DTP / HiB 2000 Completed [facility] 00:00:00 Hospital IPV 2000 Completed [facility] 00:00:00 Hospital Hep B, Unspecified 2000 Completed [facility] 00:00:00 Hospital Hep B, Unspecified 2000 Completed [facility] 00:00:00 Hospital Vital Signs Vital Name Observation Time Observation Value Comments Source BP Systolic 2018-04-10 115 mm[Hg] Location: [facility] 08:10:00 Position: [place] [facility] Sitting BP Diastolic 2018-04-10 74 mm[Hg] Location: [facility] 08:10:00 Position: [place] [facility] S[facility] Height 2018-04-10 72 [in_us] [facility] 08:10:00 [place] [facility] Weight 2018-04-10 158 [lb_av] [facility] 08:10:00 [facility] Body Mass Index 2018-04-10 21.43 kg/m2 University o f Calculated 08:10:00 [place] [facility] Temperature 2018-04-10 97.3 [degF] Method: [facility] 08:10:00 Tympanic [place] [facility] Heart Rate 2018-04-10 48 /min [facility] 08:10:00 [facility] Procedures Procedure Date / Time Performing Clinician Source Performed [L] Trichomonas Culture 2018-04-10 00:00:00 [facility] Physicians [LH] GC/CT by Amp Det 2018-04-10 00:00:00 [facility] (APTIMA) Physicians [QH] HIV AB, HIV 1/2, 2018-04-10 00:00:00 [facility] EIA, WITH REFLEXES Physicians [QLH] RPR 2018-04-10 00:00:00 [facility] [place] [facility] [[facility]] HEPATITIS PANEL 2018-04-10 00:00:00 Univer [facility] Physicians [[facility]] TSH, 3RD 2018-04-10 00:00:00 University o f [place] GENERATION W/REFLEX TO Physician s FT4 History of Dental [facility] surgery Physicians History of Orchiopexy [facility] Plan of Care Planned Activity Planned Date Details Comments Source Future Scheduled Test COVID-19 VACCINE (1) [facility] [code = COVID-19 VACCINE (1)] Future Scheduled Test INFLUENZA VACCINE M [facility] [code = INFLUENZA VACCINE] Encounters Start End Encounter Admission Attending Care Care Encounter Source Date/Time Date/Time Type Type Clinicians Facility Department ID 2020-06-29 2020-06-29 Emergency [facility] [id number] 15:20:00 18:23:00 Audra Kaye [id number] [place] [id number] [place] [id number] 2018-08-06 2018-08-06 Appointmen TIKI FONSECA [id number] Univers 14:00:00 14:00:00 t; JULIO FONSECA ity of [place], M.D. [place] M.D. Physici ans 2018-06-11 2018-06-11 AppointTIKI Hoffman [id number] Univers 08:15:00 08:15:00 t; KELLY ESPINOZA D.O. ity [place], [place] Physici ans 2018-06-10 2018-06-10 Appointmen TIKI FONSECA [facility] [id number] Univers 08:00:00 08:00:00 t; JULIO FONSECA ity of [place], M.D. [place] M.D. Physici ans 2018-04-10 2018-04-10 Appointmen TIKI ESPINOZAa [id number] Univers 08:00:00 08:00:00 t; KELLY ESPINOZA D.O. [facility] nafisa [place], [place] Physici ans Results Test Description Test Time Test Comments Results Result Comments Source [[facility]] TSH, 3RD GENERATION W/REFLEX TO FT4 2018-04-10 09:01:0 1 Test Item Value Reference Range Interpretation Comme nts TSH (test code = 39878-8) 1.760 {uIU/ml} 0.360-3.740 [facility]] HEPATITIS [id number] 09:01:01 Test Item Value Reference Range Interpretation Comments Hepatitis B Surface Antigen (test Negative Negative code = 5195-3) Hepatitis C Antibody (test code = Negative 57840-0) Hepatitis B Core IgM (test code = Negative Negative 85688-9) Hepatitis A IgM (test code = Negative Negative 21414-3) [facility][] HIV AB, HIV 1/2, EIA, WITH [id number] 09:01:01 Test Item Value Reference Range Interpretation Comments HIV Ag/Ab 4th Gen (test code = Negative Negative 49838-5) [facility]] [id number] 09:01:01 Test Item Value Reference Range Interpretation Comments RPR (test code = 18060-9) Non-Reactive Non-Reactive [facility][] GC/CT by Amp Det (APTIMA)2018-04-10 09:01:01 Test Item Value Reference Range Interpretation Comments Source APTIMA Urine (test code = Source APTIMA) N gonorrhea by Amp Negative Negative The APTIM A assay is a Det (APTIMA) (test target am plification code = 24834-4) nucleic acid probe test utilizingtarget capture for the qualitative detection and differentia tion of ribosomalRNA fr om Neisseria gonorrhoeae to aid in the diagnosis of di sease fromsymptomatic and asymptomatic in dividuals using the [employer] System.This ass ay utilizes FDA cleared IVD reagents. Performance juani racteristics eleazar riley ed by the Molecular Diagn ostic Laboratory with in [facility].The [facility] is authorized unde r the Clinical LaboratoryImpro vement Amendments of 1 988 (CLIA-88) to pe rform high complexity test ing. C trachomatis by Negative Negative The APTIMA assay is a Amp Det (APTIMA) target ampl ification (test code = nucleic acid pr obe test 02087-6) utilizingtarget capture for the qualitative detection and differentia tion of ribosomalRNA fr om Chlamydia trachomatis to aid in the diagnosis of di sease fromsymptomatic and asymptomatic in dividuals using the Risk I/O ER System.This ass ay utilizes FDA cleared IVD reagents. Performance juani olngoriateristics eleazar riley ed by the Molecular Diagn ostic Laboratory with in [facility].The Mol ecular Diagnostic Labo greg is authorized undradha r the Clinical LaboratoryImpro vement Amendments of 1 988 (CLIA-88) to pe rform high complexity test ing. [facility]
--- NOTE | 2021-07-06 14:25 | ER ---
Nurse's Notes [facility] Name: Marek Anderson Age: 21 yrs Sex: Male : 2000 Arrival Date: 07/06/2021 Time: 13:23 Bed Waiting Private MD: Diagnosis: Assessment: 07/06 14:23 Reassessment: called to triage, no answer. ER registration states that patient has ss eloped. ED Course: 13:23 Patient arrived in ED. ds1 14:22 Triage completed. ss 14:24 No provider procedures requiring assistance completed. Patient did not have IV access ss during this emergency room visit. Administered Medications: No medications were administered Outcome: 14:24 Eloped from waiting room. ss 14:24 Patient left the ED. ss Signatures: Bebe Santos ds1 Shawanda Christopher RN RN ss Corrections: (The following items were deleted from the chart) 14: 14:20 Chief complaint: EMS states: fell out of bed this morning and is complaining of L ss wrist/ hand pain ss 14: 14:20 Note mcc reports that patient his her head as well. [facility] 14: 14:20 Onset of symptoms was July 06, 2021 [facility] 14: 14:20 Coronavirus screen: At this time, the client does not indicate any symptoms ss associated with coronavirus-19. ss 14: 14:20 Ebola Screen: Patient denies exposure to infectious person. Patient denies travel ss to an Ebola-affected area in the 21 days before illness onset. ss 14:23 14:20 Initial Sepsis Screen: Does the patient meet any 2 criteria? No. Patient's ss initial sepsis screen is negative. Does the patient have a suspected source of infection? No. Patient's initial sepsis screen is negative. 14:23 14:20 Risk Assessment: Do you want to hurt yourself or someone else? Patient reports no ss desire to harm self or others. ss 14: 14:20 Acuity: RASHMI 3 ss 14:23 14:20 Method Of Arrival: EMS: [facility] 14:23 14:20 BP 148 / 72; Pulse 52bpm; Resp 18bpm; Pulse Ox 98% RA; Temp 97.3F Temporal; 58.06 ss kg; ss 14:23 14:20 Immunization history: Client reports receiving the 2nd dose of the Covid vaccine, ss ss 14:23 14:20 Social history: Smoking status: Patient denies any tobacco usage or history of. ssss
== END 2021-07-06 14:24 | disposition left against medical advice (07) ==
LOC: ER 13:21
DX: Z53.21 Procedure and treatment not carried out due to patient leaving prior to being seen by health care provider (principal)
CPT/HCPCS: 99281

== ENCOUNTER 2021-12-20 12:04 | Emergency (ER) | payer SELFPAY ==
[~2021-12-20 12:04] MED LIST: NALOXONE HCL 2 MG/2 ML VIAL ONE
--- OUTSIDE RECORDS SUMMARY | 2021-12-20 12:08 | XMS REPORT | Continuity of Care Document ---
:2000 Author Organization [facility] t Address [address] [place] [address] Care Team Providers Name Role Phone Maria A SINCLAIR Primary Care Physician Singer GAVIN Attending Clinician HUYNH Attending Clinician Unavailable Doctor Unassigned, Name Attending Clinician Unavailable Regine THOMAS, R Attending Clinician AQUINO, R Attending Clinician Unavailable RAYMUNDO Attending Clinician Unavailable OLGA Attending Clinician Unavailable Problems Condition Condition Condition Status Onset Resolution Last Treating Co mments Source Name Details Category Date Date Treatment Clinician Date Suicidal Suicidal Disease Active 2018-11 Metho di ideation ideation 12-08 00:00: Hospita 00 l Depression Depression Disease Active 2018-11 M ethodi 12-08 00:00: Hospita 00 l Cystic Cystic Disease [...] of self cutting behavior and suicidal ideation. Tobacco Tobacco Problem Active Univers abuse abuse HL7.CCDAR2 [facility] [place] [facility] Anxiety Anxiety Problem Active Univers and and HL7.CCDAR2 [place] [facility] No known No known Disease Unive rs active active ity of problems problems [facility] H/O H/O Disease Active Overview: Method i [...] December 2016.Has also quit smoking since 03/2017. Screening Screening Problem Active Uni vers for STD for STD HL7.CCDAR2 [place] of ([place]ually ([place]ually [place] transmitte transmitte Ph ysici d disease) d disease) an s Allergies, Adverse Reactions, Alerts Allergy Allergy Status Severity Reaction(s) Onset Inactive Treating Comm ents Source Name Type Date Date Clinician NO KNOWN Drug Active Univers ALLERGIE Class ity of S [facility] Family History Family Member Diagnosis Comments Start Date Stop Date Source Natural brother ADD / ADHD [facility] [place] [facility] Hypertension [facility] Family member Colon cancer [facility] [place] Family member [facility]state [facility] Natural father [facility] illness [facility] Natural [facility] Bipolar disorder [facility] Maternal Depression [facility] grandfather Hospital Maternal No Known Problems [facility] grandmother Hospital Natural mother Depression [facility] [place] uncle Family history of Univers ity of lung cancer [place] [facility] Social History Social Habit Start Date Stop Date Quantity Comments Source Exposure to Yes University of SARS-CoV-2 [facility] (event) [place] Tobacco use and 2017-11-28 2017-11-28 Former user [facility] exposure 00:00:00 00:00:00 Alcohol intake 2017-11-28 2017-11-28 Current drinker [facility] 00:00:00 00:00:00 of alcohol (finding) Tobacco Comment 2017-05-24 2017-05-24 restarted [facility] [place] 00:00:00 00:00:00 05/22/2017 Alcohol Comment 2017-04-13 2017-04-13 social [facility] [place] 00:00:00 00:00:00 History of 2017-04-13 [facility] use 00:[facility]:00 tobacco Sex Assigned At [birth year] Universit y of 00:00:00 00:00:00 [facility] Smoking Status Start Date Stop Date Source Unknown [facility] Current every day smoker 2017-11-28 00:00:00 Met [facility] Medications Ordered Filled Start Stop Current Ordering Indication Dosage Frequency Signature Comments Components Source Medication Medication Date Date Medication? Clinician (SIG) Name Name benzocaine- 0 Yes [id number] 1{lozen Take 1 Univers menthoL 8-19 ge} Lozenge by ity of (CEPACOL 00:00: mouth [place] SORE 00 every 4 Medical THROAT, (four) [place] FÉLIX-MEN,) hours as lozenge needed for Sore throat. dicyclomine 2020-0 Yes 10mg Take 10 mg Univers (BENTYL) 10 8-11 by mouth 4 it y of mg capsule 23:11: ([facility]) [place] 03 times Medical daily. [place] dicyclomine 2020-0 Yes 10mg Take 10 mg Univers (BENTYL) 10 8-11 by mouth 4 it y of mg capsule 23:11: (four) [place] 03 times Medical daily. [place] dicyclomine 2020-0 Yes 10mg Take 10 mg Univers (BENTYL) 10 8-11 by mouth 4 it y of mg capsule 23:11: (four) [place] 03 times Medical daily. [place] iohexol 2020- No 120mL 120 mL, Unive rs (OMNIPAQUE 06-29 Intravenou it y of 350 21:45: 21:45 s, ONCE, 1 [place] BULK-150 00 :00 dose, Tue Medica l mL) 06/29/20 at [place] injection 1645, 120 mL Routine NaCl 0.9% 2020- No 1000mL at 999 Uni vers (NS) bolus 06-29 mL/hr, ity of infusion 20:30: 23:08 1,000 mL, [place] as 1,000 mL 00 :00 IV Medical Infusion, [place] ONCE, 1 dose, 06/29/20 at 1530, BAN docusate 2019- Yes [id number] 100mg Take 1 U nivers (COLACE) 1-17 capsule by ity o f 100 mg 00:00: mouth [place] capsule 00 daily. Medical Branch docusate 2019 Yes [id number] 100mg Take 1 U nivers (COLACE) 1-17 capsule by ity o f 100 mg 00:00: mouth [place] capsule 00 daily. Medical Branch docusate 2018-11 Yes [id number] 100mg Take 1 U nivers (COLACE) 1-17 capsule by ity o f 100 mg 00:00: mouth [place] capsule 00 daily. Medical Branch Centrum Centrum Yes 1 QD TAKE 1 [...] EVERY 1-2 HOURS; MAXIMUM OF 24 PIECES/DAY MULTIVIT-NM Yes Take by Un deandre NERALS/FOLI 2-27 mouth. ity of C ACID 03:15: [place] (ADULT 19 Medical MULTIVITAMI Branch N GUMMIES ORAL) MULTIVIT-NM Yes Take by Un deandre NERALS/FOLI 2-27 mouth. ity of C ACID 03:15: [place] (ADULT 19 Medical MULTIVITAMI Branch N GUMMIES ORAL) MULTIVIT-NM Yes Take by Un deandre NERALS/FOLI 2-27 mouth. ity of C ACID 03:15: [place] (ADULT 19 Medical MULTIVITAMI Branch N GUMMIES ORAL) ABSORICA 40 2016- Yes [id number] 40mg QD Take 40 mg Methodi mg [...] Tdap (Adacel) 2018-04-10 Completed University of 08:31:00 [place] [facility] FLUZONE QUAD 2015-10-05 Completed Denominational 00:00:00 [facility] Meningococcal ACYW, 2015-07-09 Completed Metho dist Unspecified 00:00:00 Hospital HPV, Unspecified 2013-03-31 Completed [facility] t 00:00:00 Hospital HPV, Unspecified 2012-10-24 Completed [facility] t 00:00:00 Hospital HPV, Unspecified 2012-07-10 Completed Method[facility] t 00:00:00 Hospital FLUZONE QUAD 2012-07-10 Completed [facility] 00:00:00 Hospital FLUZONE QUAD 2012-01-09 Completed [facility] 00:00:00 Hospital Hep A, Unspecified 2011-06-22 Completed Method ist 00:00:00 [facility] Meningococcal ACYW, 2011-06-22 Completed Metho dist Unspecified 00:00:00 Hospital Tdap 2011-06-22 Completed [facility] 00:00:00 Hospital DTaP, Unspecified 2003-04-[address] 00:00:00 Hospital IPV 2003-04-08 Completed [facility] 00:00:00 Hospital MMR 2003-04-08 Completed [facility] 00:00:00 Hospital Hep A, Unspecified 2001-12-10 Completed Method ist 00:00:00 Hospital DTaP, Unspecified 2000-03-[address] 00:00:00 Hospital Hep B, Unspecified 2000-03-28 Completed Method ist 00:00:00 Hospital Hib (PRP-T) 2000-03-28 Completed [facility] 00:00:00 Hospital IPV 2000-03-28 Completed [facility] 00:00:00 Hospital MMR 2000-03-28 Completed [facility] 00:00:00 Hospital Varicella 2000-03-28 Completed [facility] 00:00:00 Hospital DTaP, Unspecified [address] 00:00:00 Hospital Hib (PRP-T) 1999 Completed [facility] 00:00:00 Hospital IPV 1999 Completed [facility] 00:00:00 Hospital DTP / HiB 1999 Completed [facility] 00:00:00 Hospital IPV 1999 Completed [facility] 00:00:00 Hospital Hep B, Unspecified 1999 Completed [facility] 00:00:00 Hospital Hep B, Unspecified 1999 Completed [facility] 00:00:00 Hospital Vital Signs Vital Name Observation Time Observation Value Comments Source Systolic blood 2021-07-07 131 mm[Hg] University of pressure 19:29:00 [facility] Diastolic blood 2021-07-07 74 mm[Hg] University o f pressure 19:29:00 [facility] Heart rate 2021-07-07 96 /min University of 19:29:00 [facility] Body temperature 2021-07-07 37.44 Le University of 19:29:00 [facility] Respiratory rate 2021-07-07 14 /min University of 19:29:00 [facility] Body weight 2021-07-07 76.658 kg University of 19:29:00 [facility] BMI 2021-07-07 22.30 kg/m2 University of 19:29:00 [facility] Oxygen saturation 2021-07-07 100 /min University of in Arterial blood 19:29:00 [facility] by Pulse oximetry Branch Systolic blood 2020-06-29 119 mm[Hg] University of pressure 23:00:00 [facility] Diastolic blood 2020-06-29 76 mm[Hg] University o f pressure 23:00:00 [facility] Heart rate 2020-06-29 52 /min University of 23:00:00 [facility] Body temperature 2020-06-29 37.39 Le University of 22:54:00 [facility] Respiratory rate 2020-06-29 14 /min University of 22:54:00 [facility] Oxygen saturation 2020-06-29 100 /min University of in Arterial blood 22:54:00 [facility] by Pulse oximetry Branch Body height 2020-06-29 185.4 cm University of 20:18:00 [facility] Body weight 2020-06-29 74.844 kg University of 20:18:00 [facility] BMI 2020-06-29 21.77 kg/m2 University of 20:18:00 [facility] Systolic blood 2020-06-29 119 mm[Hg] University of pressure 23:00:00 [facility] Diastolic blood 2020-06-29 76 mm[Hg] University o f pressure 23:00:00 [facility] Heart rate 2020-06-29 52 /min University of 23:00:00 [facility] Body temperature 2020-06-29 37.39 Le University of 22:54:00 [facility] Respiratory rate 2020-06-29 14 /min University of 22:54:00 [facility] Oxygen saturation 2020-06-29 100 /min University of in Arterial blood 22:54:00 [facility] by Pulse oximetry [place] Body height 2020-06-29 185.4 cm [facility] 20:18:00 [facility] Body weight 2020-06-29 74.844 kg [facility] 20:18:00 [facility] BMI 2020-06-29 21.77 kg/m2 [facility] 20:18:00 [facility] BP Systolic 2018-04-10 115 mm[Hg] Location: [facility] 08:10:00 Position: [place] [facility] Sitting BP Diastolic 2018-04-10 74 mm[Hg] Location: [facility] 08:10:00 Position: [place] [facility] Sitting Height 2018-04-10 72 [in_us] [facility] 08:10:00 [place] [facility] Weight 2018-04-10 158 [lb_av] [facility] 08:10:00 [place] [facility] Body Mass Index 2018-04-10 21.43 kg/m2 [facility] Calculated 08:10:00 [place] [facility] Temperature 2018-04-10 97.3 [degF] Method: [facility] 08:10:00 Tympanic [place] [facility] Heart Rate 2018-04-10 48 /min [facility] 08:10:00 [place] [facility] Procedures Procedure Date / Time Performing Clinician Source Performed RAPID STREP SCREEN FOR 2021-07-07 19:32:00 Lu Huynh [facility] A Medical Branch CONSENT/REFUSAL FOR 2021-07-07 19:21:22 Doctor Unassigned, No Un [facility] [place] DIAGNOSIS AND TREATMENT Name Medical [place] CT ABDOMEN PELVIS W 2020-06-29 21:42:27 Pamella Aquino [facility] CONTRAST Medical Branch LIPASE 2020-06-29 20:31:00 Pamella Aquino [facility] COMP. METABOLIC PANEL 2020-06-29 20:31:00 Pamella Aquino [facility] ([id number]) Medical [place] CBC WITH DIFF 2020-06-29 20:31:00 Pamella Aquino [facility] URINALYSIS 2020-06-29 20:31:00 Pamella Aquino [facility] NOTICE OF PRIVACY 2020-06-29 20:08:11 [facility], [facility] Branch CONSENT/REFUSAL FOR 2020-06-29 20:05:43 Doctor Unassigned, No Un [facility] [place] DIAGNOSIS AND TREATMENT Name Medical Branch [L] Trichomonas Culture 2018-04-10 00:00:00 [facility] Physicians [LH] GC/CT by Amp Det 2018-04-10 00:00:00 [facility] (APTIMA) Physicians [QH] HIV AB, HIV 1/2, 2018-04-10 00:00:00 [facility] EIA, WITH REFLEXES Physicians [[facility]] RPR 2018-04-10 00:00:00 [place] o f [place] [facility] [[facility]] HEPATITIS PANEL 2018-04-10 00:00:00 [facility] Physicians [[facility]] TSH, 3RD 2018-04-10 00:00:00 [place] o [facility] GENERATION W/REFLEX TO Physician s FT4 History of Dental [facility] surgery Physicians History of Orchiopexy [facility] Physicians Plan of Care Planned Activity Planned Date Details Comments Source Future Scheduled Test COVID-19 VACCINE (1) [facility] [place] [code = COVID-19 VACCINE (1)] Future Scheduled Test INFLUENZA VACCINE M [facility] [code = INFLUENZA VACCINE] Encounters Start End Encounter Admission Attending Care Care Encounter Source Date/Time Date/Time Type Type Clinicians Facility Department ID 2021-07-07 2021-07-07 Emergency Singer [facility] [id number] Univers 14:36:00 16:28:00 Lu Kaye [id number] i [facility] [id number] [facility] [id number] [facility] 084 Branch 2021-07-07 2021-07-07 Emergency X SINGER [facility] ERT [id number] Univers 14:22:00 14:22:00 LU skelton [facility] 2021-07-07 2021-07-07 Orders Doctor CEE [id number] Univers 00:00:00 00:00:00 Only Unassigned, BRIAN [id number] ity of [place] [facility] [id number] [facility] [place] [facility] [id number] [facility] 009 Branch 2020-06-29 2020-06-29 Emergency Regine [facility] [id number] Univers 15:20:00 18:23:00 Pamella R [place] [id number] i ty of [place] 4[place]2.7.2.686 [place] [id number] [address] 2020-06-29 2020-06-[address] [facility] [id number] 15:20:00 18:23:00 Pamella R [place] [id number] [place] [id number] [place] [id number] [facility] 2020-06-29 2020-06-29 Emergency X [facility] ERT [id number] Univers 15:07:00 15:07:00 PAMELLA itmackenzie [facility] 2018-08-06 2018-08-06 Appointmen TIKI FONSECA [id number] Univers 14:00:00 14:00:00 t; JULIO FONSECA ity of [place], M.D. [place] [facility] 2018-06-11 2018-06-11 Appointmen TIKI ESPINOZA [id number] Univers 08:15:00 08:15:00 t; KELLY ESPINOZA D.O. ity [place], [place] [facility] 2018-06-10 2018-06-10 Appointmen TIKI FONSECA [id number] Univers 08:00:00 08:00:00 t; JULIO FONSECA ity of [place], M.D. [place] M.D. Physici ans 2018-04-10 2018-04-10 Appointmen TIKI ESPINOZAnna [id number] Univers 08:00:00 08:00:00 t; KELLY ESPINOZA D.O. [facility] nafisa [place], [place] [facility] Results Test Description Test Time Test Comments Results Result Comments Source RAPID STREP SCREEN FOR GROUP A 2021-07-07 20:12:44 Test Item Value Reference Range Interpretation Comme nts Streptococcus pyogenes (group A) antigen (test code = 98613- 2) Negative Negative Lab Interpretation (test code = 05352-5) Normal [facility] [id number] 21:49:08CT Abdomen and Pelvis with intravenous contrast. CLINICAL HISTORY: Generalized abdominal pain. Bloody diarrhea. DOSE: Up-to-date CT equipment and radiation dose reduction techniques wereemployed. CTDIvol: 4.71 mGy. DLP: 242 mGy-cm. TECHNIQUE : Contiguous axial imaging from the level of the lung basest hrough the pubic symphysis were performed after the uncomplicatedadministration of Omnipaque contrast material. Coronal and sagittalreconstructions were obtained. Auto mA and/or iterative reconstruction wereused to reduce radiation dose. FINDINGS: Comparison is made with 10/05/2019 study. Lower lungs:Clear. No pleural effusion or pericardial effusion. No signsof a hiatal hernia. Liver, Gallbladder and Spleen: Liver measures 16.6 cm in length and spleenis approximately 11.4 x 4 cm. No enhancing lesions are detected in theliver, however, only arterial and portal venous phases are imaged. No calcified gallstones. Biliary ducts and the pancreatic duct appear ofnormal size. Peritoneum: ?No free air orfree fluid. No lymphadenopathy. Pancreas and Adrenals: ?Unremarkable pancreas and adrenal glands. Kidneys and Ureters: No enhancing kidney lesions. High density material inthe collecting system of both kidneys is probably excreted contrast medium.Small kidney stones cannot be ruled out by this examination. No hydroureteror hydronephrosis. Vessels: 2 right renal arteries and 3 left renal arteries noted arisingfrom the abdominal aorta. Filling defect in the superior mesenteric vein as well as portal veinnoted, likely flow-related artifacts, unlikely to be blood clots. Retroperitoneum: No abnormal fluid or lymphadenopathy. Bowel: Unremarkable intestinal gas pattern. Normal appendix is visualized. Bladder and Reproductive Organs: Grossly unremarkable, under distended andunopacified urinary bladder. Bones: Unremarkable. Soft tissues: Unremarkable. CONCLUSION: No acute intra-abdominal or pelvic abnormalities detected. [facility], Radiant Results Inft User - 06/29/2020 4:50 PM CDTCT Abdomen and Pelvis with intravenous contrast.CLINICAL HISTORY: Generalized abdominal pain. Bloody diarrhea.DOSE: Up-to-date CT equipment and radiation dose reduction techniques wereemployed. CTDIvol: 4.71 mGy. DLP: 242 mGy-cm.TECHNIQUE : Contiguous axial imaging from the level of the lung basesthrough the pubic symphysiswere performed after the uncomplicatedadministration of Omnipaque contrast material. Coronal and sagi ttalreconstructions were obtained. Auto mA and/or iterative reconstruction wereused to reduce radiation dose.FINDINGS: Comparison is made with 10/05/2019 study.Lower lungs: Clear. No pleural effusion or pericardial effusion. No signsof a hiatal hernia.Liver, Gallbladder and Spleen: Liver measures 16.6cm in length and spleenis approximately 11.4 x 4 cm. No enhancing lesions are detected in theliver, however, only arterial and portal venous phases are imaged.No calcified gallstones. Biliary ducts andthe pancreatic duct appear ofnormal size.Peritoneum: No free air or free fluid. No lymphadenopathy.Pancreas and Adrenals: Unremarkable pancreas and adrenal glands.Kidneys and Ureters: No enhancing kidney lesions. High density material inthe collecting system of both kidneys is probably excreted contrast medium.Small kidney stones cannot be ruled out by this examination. No hydroureteror hydronephrosis. Vessels: 2 right renal arteries and 3 left renal arteries noted arisingfrom the abdominal aorta. Filling defect in the superior mesenteric vein as well as portal veinnoted, likely flow-related artifacts, unlikely to be blood clots.Retroperitoneum: No abnormal fluid or lymphadenopathy.Bowel: Unremarkable intestinal gas pattern. Normal appendix is visualized.Bladder and Reproductive Organs: Grossly unremarkable, under distended andunopacified urinary bladder.Bones: Unremarkable.Soft tissues: Unremarkable.CONCLUSION: No acute intra-abdominal or pelvic abnormalities detected.[facility] 2020[facility] 21:22:00 Test Item Value Reference Range Interpretation Comments APPEARANCE (test code = Hazy Clear A [id number]) COLOR (test code = Yellow Yellow 2009214389) PH (test code = 4.8-8.0 1048440525) SP GRAVITY (test code = 1.003-1.030 0034944713) GLU U QUAL (test code = Normal Normal 5895946682) BLOOD (test code = 1+ Negative A 0163289742) KETONES (test code = Negative Negative 4081853765) PROTEIN (test code = Negative Negative 2887-8) UROBILIN (test code = Normal Normal 5122579337) BILIRUBIN (test code = Negative Negative 4136568651) NITRITE (test code = Negative Negative 0568418298) LEUK DEANDRE (test code = Negative Negative 0097317784) RBC/HPF (test code = See_Comment H [Autom ated message] 2449604318) The system [employer] generated this result transmitted ref erence range: 0 - 3 HP F. The reference range was not used to int erpret this result as normal/abnormal . WBC/HPF (test code = See_Comment [Autom ated message] 3064087333) The system [employer] generated this result transmitted ref erence range: 0 - 5 HP F. The reference range was not used to int erpret this result as normal/abnormal . BACTERIA (test code = Negative Negative 0666317225) MUCOUS (test code = Slight Negative LPF A 6941645886) Lab Interpretation (test Abnormal code = 97278-0) [facility]. METABOLIC PANEL (08443)2020-06-29 21:03:00 Test Item Value Reference Range Interpretation Comments NA (test code = 139 mmol/L 135-145 3298336157) K (test code = 3.9 mmol/L 3.5-5 8352079101) CL (test code = 102 mmol/L 98-108 2048201262) CO2 TOTAL (test code = 27 mmol/L 23-31 6622585591) AGAP (test code = 2-16 0513155678) BUN (test code = 11 mg/dL 7-23 0700158829) GLUCOSE (test code = 87 mg/dL 70-110 6272697511) CREATININE (test code = 0.89 mg/dL 0.6-1.25 1157395601) TOTAL BILI (test code = 0.3 mg/dL 0.1-1.9 2815335927) CALCIUM (test code = 10.2 mg/dL 8.6-10.6 4440615322) T PROTEIN (test code = 8.6 g/dL 6.3-8.2 H 2877209343) ALBUMIN (test code = 5.0 g/dL 3.5-5 1768504812) ALK PHOS (test code = 67 U/L 34-122 5129729607) ALTv (test code = 37 U/L 5-50 1742-6) AST(SGOT) (test code = 32 U/L 13-40 9608558448) eGFR Calculation mL/min/1.73m2 (Non-) (test code = 3959751019) eGFR Calculation mL/min/1.73m2 () (test code = 5098534290) TOR (test code = TOR) Association of Glomerular Filtration Rate (GFR) and Staging of Kidney Disease* + --+ --+ ------+| GFR (mL/min/1.73 m2) ?| With Kidney Damage ?| ?Without Kidney Damage+ --------+ --------+ +| ?>90 ?| ?Stage one ?| ? Normal ?+ ---+ ---+ -------+| ?60-89 ?| ?Stage two ?| ? Decreased GFR ? + --+ --+ ------+| ?30-59 ?| ?Stage three ?| ? Stage three ? + --+ --+ ------+| ?15-29 ?| ?Stage four ? | ? Stage four ?+ ---+ ---+ -------+| ?<15 (or dialysis) ? ?| ?Stage five ? | ? Stage five ?+ ---+ ---+ -------+ *Each stage assumes the associated GFR level has been in effect for at least three months. ?Stages 1 to 5, with or without kidney disease, indicate chronic kidney disease. Notes: Determination of stages one and two (with eGFR >59mL/min/1.73 m2) requires estimation of kidney damage for at least three months as defined by structural or functional abnormalities of the kidney, manifested by either:Pathological abnormalities or Markers of kidney damage (including abnormalities in the composition of the blood or urine or abnormalities in imaging tests). Lab Interpretation Abnormal (test code = 54172-3) [facility]:02[facility]00 Test Item Value Reference Range Interpretation Comments LIPASE (test code = 2598706634) 27 U/L 0-220 Lab Interpretation (test code = Normal 76850-1) [facility] WITH [id number] 20:53:00 Test Item Value Reference Range Interpretation Comments WBC (test code = See_Comment [Automated 3474-2) message] The sy stem which generated this result transmitted reference range : 4.20 - 10.70 10*3/?L. The reference range was not used to interpret this result as normal/abnormal . RBC (test code = See_Comment [Automated 789-8) message] The sy stem which generated this result transmitted reference range : 4.26 - 5.52 10*6/?L. The reference range was not used to interpret this result as normal/abnormal . HGB (test code = 15.4 g/dL 12.2-16.4 718-7) HCT (test code = 46.6 % 38.4-49.3 4544-3) MCV (test code = 90.3 fL 81.7-95.6 787-2) MCH (test code = 29.8 pg 26.1-32.7 785-6) MCHC (test code = 33.0 g/dL 31.2-35 786-4) RDW-SD (test code = 43.6 fL 38.5-51.6 40377-1) RDW-CV (test code = 13.2 % 12.1-15.4 788-0) PLT (test code = See_Comment H [Automated 777-3) message] The sy stem which generated this result transmitted reference range : 150 - 328 10*3/ ?L. The reference r oy was not used to interpret this result as normal/abnormal . MPV (test code = 9.3 fL 9.8-13 L 21355-1) NRBC/100 WBC (test See_Comment [Automat ed code = 3338734304) message] The system which generated this result transmitted reference range : 0.0 - 10.0 /100 WBCs. The refer ence range was not u sed to interpret th is result as normal/abnormal . NRBC x10^3 (test code <0.01 See_Comment [Auto mated = [id number]) message] The s ystem which generated this result transmitted reference range : 10*3/?L. The reference range was not used to interpret this result as normal/abnormal . GRAN MAT (NEUT) % 44.3 % (test code = 770-8) IMM GRAN % (test code 1.70 % = 6885562034) LYMPH % (test code = 39.1 % 736-9) MONO % (test code = 6.8 % 5905-5) EOS % (test code = 7.2 % 713-8) BASO % (test code = 0.9 % 706-2) GRAN MAT x10^3(ANC) 3.41 10*3/uL 1.99-6.95 (test code = 3256553715) IMM GRAN x10^3 (test 0.13 10*3/uL 0-0.06 H code = 7618243598) LYMPH x10^3 (test code 3.01 10*3/uL 1.09-3.23 = 731-0) MONO x10^3 (test code 0.52 10*3/uL 0.36-1.02 = 742-7) EOS x10^3 (test code = 0.55 10*3/uL 0.06-0.53 H 711-2) BASO x10^3 (test code 0.07 10*3/uL 0.01-0.09 = 704-7) Lab Interpretation Abnormal (test code = 64262-8) [facility]] TSH, 3RD GENERATION W/REFLEX TO FT4 2018-04-10 09:01:01 Test Item Value Reference Range Interpretation Comments TSH (test code = 61798-7) 1.760 {uIU/ml} 0.360-3.740 [facility]] HEPATITIS [id number] 09:01:01 Test Item Value Reference Range Interpretation Comments Hepatitis B Surface Antigen (test Negative Negative code = 5195-3) Hepatitis C Antibody (test code = Negative 80454-1) Hepatitis B Core IgM (test code = Negative Negative 16167-4) Hepatitis A IgM (test code = Negative Negative 97871-3) [facility][] HIV AB, HIV 1/2, EIA, WITH [id number] 09:01:01 Test Item Value Reference Range Interpretation Comments HIV Ag/Ab 4th Gen (test code = Negative Negative 62481-4) [facility]] [id number] 09:01:01 Test Item Value Reference Range Interpretation Comments RPR (test code = 93229-3) Non-Reactive Non-Reactive [facility][] GC/CT by Amp Det (APTIMA)2018-04-10 09:01:01 Test Item Value Reference Range Interpretation Comments Source APTIMA Urine (test code = Source APTIMA) N gonorrhea by Amp Negative Negative The APTIM A assay is a Det (APTIMA) (test target am plification code = 73770-4) nucleic acid probe test utilizingtarget capture for the qualitative detection and differentia tion of ribosomalRNA fr om Neisseria gonorrhoeae to aid in the diagnosis of di sease fromsymptomatic and asymptomatic in dividuals using the [employer] ER System.This ass ay utilizes FDA cleared IVD reagents. Performance juani racteristics havebeen verifi ed by the [employer] [facility]stic Laboratory with in [facility].The [facility] r[facility] is authorized unde r the Clinical LaboratoryImpro vement Amendments of 1 988 (CLIA-88) to pe rform high complexity test ing. C trachomatis by Negative Negative The APTIMA assay is a Amp Det (APTIMA) target ampl ification (test code = nucleic acid pr obe test 40321-4) utilizingtarget capture for the qualitative detection and differentia tion of ribosomalRNA fr om Chlamydia trachomatis to aid in the diagnosis of di sease fromsymptomatic and asymptomatic in dividuals using the [employer] ER System.This ass ay utilizes FDA cleared IVD reagents. Performance juani racteristics havebeen verifi ed by the [employer] [facility] with in [facility].The [facility] r[facility] is authorized unde r the Clinical LaboratoryImpro vement Amendments of 1 988 (CLIA-88) to pe rform high complexity test ing. [facility]"
[2021-12-20] MEDS ORDERED: NA CHLORIDE 0.9% 1,000 ML ONE (12:22)
[2021-12-20 14:14] LABS: Barbiturates NEGATIVE (NEGATIVE); Benzodiazepines NEGATIVE (NEGATIVE); Cocaine NEGATIVE (NEGATIVE); METHAMPHETAM NEGATIVE (NEGATIVE); Methadone NEGATIVE (NEGATIVE); Opiates NEGATIVE (NEGATIVE); Phencyclidine NEGATIVE (NEGATIVE); THC Cannibis NEGATIVE (NEGATIVE)
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
[2021-12-20 15:36] VITALS: TEMP 97.7
[2021-12-20 15:38] VITALS: O2SAT 100
[2021-12-20 15:39] VITALS: BP 112/73
--- NOTE | 2021-12-21 13:07 | EKG ---
Test Date: 2021-12-20 Test Time: 12:12:09 Automatic I Threading Machine Feeder: FILI MEASUREMENT RESULTS: Intervals: Rate: 111 IA: 148 QRSD: 88 QT: 358 QTc: 486 Concepcion: P: 86 IA: 148 QRS: 77 T: 73 INTERPRETIVE STATEMENTS: Sinus tachycardia Otherwise normal ECG Compared to ECG 06/26/2020 02:02:34 Sinus rhythm no longer present Prolonged QT interval no longer present Electronically Signed On 12-21-21 13:03:17 AUDIOLOGY DIRECTOR by Homer Frecnh
== END 2021-12-20 15:02 | disposition home or self-care (01) ==
LOC: ER 12:04
DX: T40.1X1A Poisoning by heroin, accidental (unintentional), initial encounter (principal); F17.210 Nicotine dependence, cigarettes, uncomplicated
CPT/HCPCS: 80307; 82947; 93005; 96360; 96361; 99284; J2310; J7030

== ENCOUNTER 2022-02-21 16:56 | Emergency (ER) | payer SELFPAY ==
--- OUTSIDE RECORDS SUMMARY | 2022-02-21 17:01 | XMS REPORT | Continuity of Care Document ---
:2000 Author Organization [facility] t Address [address] [place] [address] Care Team Providers Name Role Phone Maria A SINCLAIR Primary Care Physician Singer GAVIN Attending Clinician HUYNH Attending Clinician Unavailable Doctor Unassigned, Name Attending Clinician Unavailable Regine THOMSA, R Attending Clinician AQUINO, R Attending Clinician Unavailable ARYMUNDO Attending Clinician Unavailable OLGA Attending Clinician Unavailable [...] of self cutting behavior and suicidal ideation. No known No known Disease Unive rs active active ity of problems problems [facility] H/O H/O Disease Active Overview: Method i intravenou intravenou Formattin s drug use s drug use g [...] of depression depression [place] [facility] [facility] Allergies, Adverse Reactions, Alerts Allergy Allergy Status Severity Reaction(s) Onset Inactive Treating Comm ents Source Name Type Date Date Clinician NO KNOWN Drug Active Univers ALLERGIE Class ity of S [facility] Family History Family Member Diagnosis Comments Start Date Stop Date Source [facility] Maternal Bipolar disorder [facility] Maternal No Known Problems Methodi [facility] Natural mother [facility] Paternal Hyperlipidemia [facility] Paternal Hypertension [facility] Paternal Other [facility] Natural brother ADD / ADHD [facility] Family member Colon cancer [facility] Family member [facility] father Mental illness [facility] Natural father Other [facility] uncle Family history of Univers ity of lung cancer [place] [facility] Social History Social Habit Start Date Stop Date Quantity Comments Source Exposure to Yes University of SARS-CoV-2 [facility] (event) Branch Tobacco use and 2017-11-28 2017-11-28 Former user [facility] exposure 00:00:00 00:00:00 Alcohol intake 2017-11-28 2017-11-28 Current drinker [facility] 00:00:00 00:00:00 of alcohol (finding) Tobacco Comment 2017-05-24 2017-05-[address] [facility] 00:00:00 00:00:00 05/22/2017 Alcohol Comment 2017-04-13 2017-04-[address] [facility] 00:00:00 00:00:00 History of 2017-04-13 User of smokeless Methodi [facility] tobacco use 00:00:00 tobacco Sex Assigned At [birth year] Universit y of 00:00:00 00:00:00 [facility] Smoking Status Start Date Stop Date Source Unknown if ever smoked [facility] y [facility] Current every day smoker 2017-11-28 00:00:00 Met [facility] Medications Ordered Filled Start Stop Current Ordering Indication Dosage Frequency Signature Comments Components Source Medication Medication Date Date Medication? Clinician (SIG) Name Name benzocaine- 0 Yes [id number] 1{lozen Take 1 Univers menthoL 8-19 ge} Lozenge by ity of (CEPACOL 00:00: mouth [place] SORE 00 every 4 Medical THROAT, (four) [place] FÉLIX-MEN,) hours as lozenge needed for Sore throat. dicyclomine 2020-0 Yes 10mg Take 10 mg Univers (BENTYL) 10 8-11 by mouth 4 it y of mg capsule 23:11: (four) [place] 03 times Medical daily. [place] dicyclomine 2020-0 Yes 10mg Take 10 mg Univers (BENTYL) 10 8-11 by mouth 4 it y of mg capsule 23:11: (four) [place] 03 times Medical daily. [place] dicyclomine 2020-0 Yes 10mg Take 10 mg Univers (BENTYL) 10 8-11 by mouth 4 it y of mg capsule 23:11: (four) [place] 03 times Medical daily. [place] iohexol 2019-0 2020- No 120mL 120 mL, Unive rs (OMNIPAQUE 06-29 Intravenou it y of 350 21:45: 21:45 s, ONCE, 1 [place] BULK-150 00 :00 dose, Tue Medica l mL) 06/29/20 at [place] injection 1645, 120 mL Routine NaCl 0.9% 0 2020- No 1000mL at 999 Uni vers (NS) bolus 06-29- mL/hr, ity of infusion 20:30: 23:08 1,000 mL, He[place] as 1,000 mL 00 :00 IV Medical Infusion, [place] ONCE, 1 dose, 06/29/20 at 1530, BAN docusate 2018- Yes [id number] 100mg Take 1 U nivers (COLACE) 1-17 capsule by ity o f 100 mg 00:00: mouth [place] capsule 00 daily. Medical Branch docusate 2018-11 Yes [id number] 100mg Take 1 U nivers (COLACE) 1-17 capsule by ity o f 100 mg 00:00: mouth [place] capsule 00 daily. Medical Branch docusate 2018-11 Yes [id number] 100mg Take 1 U nivers (COLACE) 1-17 [...] EVERY 1-2 HOURS; MAXIMUM OF 24 PIECES/DAY MULTIVIT-OK Yes Take by Un deandre NERALS/FOLI 2-27 mouth. ity of C ACID 03:15: [place] (ADULT 19 Medical MULTIVITAMI Branch N GUMMIES ORAL) MULTIVIT-OK Yes Take by Un deandre NERALS/FOLI 2-27 mouth. ity of C ACID 03:15: [place] (ADULT 19 Medical MULTIVITAMI Branch N GUMMIES ORAL) MULTIVIT-OK Yes Take by Un deandre NERALS/FOLI 2-27 mouth. ity of C ACID 03:15: [place] (ADULT 19 Medical MULTIVITAMI Branch N GUMMIES ORAL) ABSORICA 40 2016- Yes [id number] 40mg QD Take 40 mg Methodi mg [...] [place] [facility] FLUZONE QUAD 2015-10-05 Completed [facility] 00:00:00 [facility] Meningococcal ACYW, 2015-07-09 Completed [facility] dist Unspecified 00:00:00 Hospital HPV, Unspecified 2013-03-31 Completed Methodis t 00:00:00 Hospital HPV, Unspecified 2012-10-24 Completed Methodis t 00:00:00 Hospital HPV, Unspecified 2012-07-10 Completed Methodis t 00:00:00 Hospital FLUZONE QUAD 2012-07-10 Completed [facility] 00:00:00 Hospital FLUZONE QUAD 2012-01-09 Completed [facility] 00:00:00 Hospital Hep A, Unspecified 2011-06-22 Completed Method ist 00:00:00 [facility] Meningococcal ACYW, 2011-06-22 Completed Metho dist Unspecified 00:00:00 Hospital Tdap 2011-06-22 Completed [facility] 00:00:00 Hospital DTaP, Unspecified 2003-04-[address] 00:00:00 Hospital IPV 2003-04-08 Completed [facility] 00:00:00 Hospital MMR 2003-04-08 Completed [facility] 00:00:00 Hospital Hep A, Unspecified 2001-12-10 Completed Method ist 00:00:00 Hospital DTaP, Unspecified 2000-03-[address] 00:00:00 Hospital Hep B, Unspecified 2000-03-28 Completed Method ist 00:00:00 Hospital Hib (PRP-T) 2000-03-28 Completed [facility] 00:00:00 Hospital IPV 2000-03-28 Completed [facility] 00:00:00 Hospital MMR 2000-03-28 Completed [facility] 00:00:00 Hospital Varicella 2000-03-28 Completed [facility] 00:00:00 Hospital DTaP, Unspecified [address] 00:00:00 Hospital Hib (PRP-T) 1999 Completed [facility] 00:00:00 Hospital IPV 1999 Completed [facility] 00:00:00 Hospital DTP / HiB 1999 Completed [facility] 00:00:00 Hospital IPV 1999 Completed [facility] 00:00:00 Hospital Hep B, Unspecified 1999 Completed Method ist 00:00:00 Hospital Hep B, Unspecified 1999 Completed Method ist 00:00:00 Hospital Vital Signs Vital Name Observation Time Observation Value Comments Source Systolic blood 2021-07-07 131 mm[Hg] University of pressure 19:29:00 [facility] Diastolic blood 2021-07-07 74 mm[Hg] University o f pressure 19:29:00 [facility] Heart rate 2021-07-07 96 /min University of 19:29:00 [facility] Body temperature 2021-07-07 37.44 Le University of 19:29:00 [facility] Branch Respiratory rate 2021-07-07 14 /min University of 19:29:00 [facility] Body weight 2021-07-07 76.658 kg University of 19:29:00 [facility] BMI 2021-07-07 22.30 kg/m2 University of 19:29:00 [facility] Oxygen saturation 2021-07-07 100 /min University of in Arterial blood 19:29:00 [place] Medi rosalba by Pulse oximetry Branch Systolic blood 2020-06-29 119 mm[Hg] University of pressure 23:00:00 [facility] Branch Diastolic blood 2020-06-29 76 mm[Hg] University o f pressure 23:00:00 [facility] Heart rate 2020-06-29 52 /min University of 23:00:00 [facility] Body temperature 2020-06-29 37.39 Le University of 22:54:00 [facility] Branch Respiratory rate 2020-06-29 14 /min University of 22:54:00 [facility] Oxygen saturation 2020-06-29 100 /min University of in Arterial blood 22:54:00 [facility] rosalba by Pulse oximetry Branch Body height 2020-06-29 185.4 cm University of 20:18:00 [facility] Body weight 2020-06-29 74.844 kg University of 20:18:00 [facility] BMI 2020-06-29 21.77 kg/m2 University of 20:18:00 [facility] Branch Systolic blood 2020-06-29 119 mm[Hg] University of pressure 23:00:00 [facility] Branch Diastolic blood 2020-06-29 76 mm[Hg] University o f pressure 23:00:00 [facility] Branch Heart rate 2020-06-29 52 /min University of 23:00:00 [facility] Body temperature 2020-06-29 37.39 Le University of 22:54:00 [facility] Branch Respiratory rate 2020-06-29 14 /min University of 22:54:00 [facility] Branch Oxygen saturation 2020-06-29 100 /min University of in Arterial blood 22:54:00 [place] Medi rosalba by Pulse oximetry Branch Body height 2020-06-29 185.4 cm [facility] 20:18:00 [facility] Body weight 2020-06-29 74.844 kg [facility] 20:18:00 [facility] BMI 2020-06-29 21.77 kg/m2 [facility] 20:18:00 [facility] BP Systolic 2018-04-10 115 mm[Hg] Location: [facility] 08:10:00 Position: [place] Physician s Sitting BP Diastolic 2018-04-10 74 mm[Hg] Location: [facility] 08:10:00 Position: [place] Physician s Sitting Height 2018-04-10 72 [in_us] [facility] 08:10:00 [place] [facility] s Weight 2018-04-10 158 [lb_av] [facility] 08:10:00 [place] [facility] s Body Mass Index 2018-04-10 21.43 kg/m2 [facility] Calculated 08:10:00 [place] [facility] s Temperature 2018-04-10 97.3 [degF] Method: [facility] 08:10:00 Tympanic [place] [facility]ician s Heart Rate 2018-04-10 48 /min [facility] 08:10:00 [place] [facility] s Procedures Procedure Date / Time Performing Clinician Source Performed RAPID STREP SCREEN FOR 2021-07-07 19:32:00 Lu Huynh [facility] A Medical Branch CONSENT/REFUSAL FOR 2021-07-07 19:21:22 Doctor Unassigned, No [facility] [place] DIAGNOSIS AND TREATMENT Name Medical [place] ABDOMEN PELVIS W 2020-06-29 21:42:27 Pamella Aquino [facility] CONTRAST Medical Branch LIPASE 2020-06-29 20:31:00 Pamella Aquino [facility] COMP. METABOLIC PANEL 2020-06-29 20:31:00 Pamella Aquino [facility] ([id number]) Medical Branch CBC WITH DIFF 2020-06-29 20:31:00 Pamella Aquino [facility] URINALYSIS 2020-06-29 20:31:00 Pamella Aquino [facility] NOTICE OF PRIVACY 2020-06-29 20:08:11 Doctor Unassigned, No Univ [facility] PRACTICES Name Medical Branch CONSENT/REFUSAL FOR 2020-06-29 20:05:43 Doctor Unassigned, No Un [facility] DIAGNOSIS AND TREATMENT Name Medical Branch [QL] TSH, 3RD 2018-04-10 00:00:00 [place] o f [place] GENERATION W/REFLEX TO Physician s FT4 [L] Trichomonas Culture 2018-04-10 00:00:00 [facility] Physicians [] GC/CT by Amp Det 2018-04-10 00:00:00 [facility] (APTIMA) Physicians [H] HIV AB, HIV 1/2, 2018-04-10 00:00:00 [facility] EIA, WITH REFLEXES Physicians [[facility]] RPR 2018-04-10 00:00:[address] [place] [address] [facility] Physicians [[facility]] HEPATITIS PANEL 2018-04-10 00:00:00 [facility] Physicians History of Dental [facility] surgery Physicians History of Orchiopexy [facility] Physicians Plan of Care Planned Activity Planned Date Details Comments Source Future Scheduled Test COVID-19 VACCINE (1) [facility] [code = COVID-19 VACCINE (1)] Future Scheduled Test INFLUENZA VACCINE [facility] [code = INFLUENZA VACCINE] Encounters Start End Encounter Admission Attending Care Care Encounter Source Date/Time Date/Time Type Type Clinicians Facility Department ID 2021-07-07 2021-07-07 Emergency Singer [facility] [id number] Univers 14:36:00 16:28:00 Lu Kaye [id number] i [facility] [id number] [facility] [id number] [facility] 084 Branch 2021-07-07 2021-07-07 Emergency X SINGER [facility] ERT [id number] Univers 14:22:00 14:22:00 LU skelton [facility] 2021-07-07 2021-07-07 Orders Doctor ECE [id number] Univers 00:00:00 00:00:00 Only Unassigned, BRIAN [id number] ity of [place] [facility] [id number] [facility] [id number] [facility] 009 Branch 2020-06-29 2020-06-29 Emergency Regine [facility] [id number] Univers 15:20:00 18:23:00 Pamella R Rico [id number] i ty of [place] [id number] [facility] [id number] [address] 2020-06-29 2020-06-29 Emergency [facility] [id number] 15:20:00 18:23:00 Pamella R Rico [id number] [place] [id number] Ralph [id number] [facility] 2020-06-29 2020-06-29 Emergency X [facility] ERT [id number] Univers 15:07:00 15:07:00 PAMELLA itmackenzie [facility] 2018-08-06 2018-08-06 Appointmen TIKI FONSECA [id number] Univers 14:00:00 14:00:00 t; JULIO FONSECA ity of [place], M.D. [place] [facility] 2018-06-11 2018-06-11 Appointmen TIKI ESPINOZA [id number] Univers 08:15:00 08:15:00 t; KELLY ESPINOZA D.O. ity [place], [place] [facility] Physici ans 2018-06-10 2018-06-10 Appointmen TIKI FONSECA [id number] Univers 08:00:00 08:00:00 t; JULIO FONSECA ity of [place], M.D. [place] [facility] 2018-04-10 2018-04-10 Appointmen TIKI ESPINOZA [facility] [id number] Univers 08:00:00 08:00:00 t; KELLY ESPINOZA D.O. [facility] nafisa [place], [place] [facility] Physici ans Results Test Description Test Time Test Comments Results Result Comments Source RAPID STREP SCREEN FOR GROUP A 2021-07-07 20:12:44 Test Item Value Reference Range Interpretation Comme nts Streptococcus pyogenes (group A) antigen (test code = 93928- 2) Negative Negative Lab Interpretation (test code = 87081-7) Normal [facility] [id number] 21:49:08CT Abdomen and Pelvis with intravenous contrast. [...] Unremarkable.CONCLUSION: No acute intra-abdominal or pelvic abnormalities detected.[facility] 2020-06-29 21:22:00 Test Item Value Reference Range Interpretation Comments APPEARANCE (test code = Hazy Clear A 4389327687) COLOR (test code = Yellow Yellow 2314669005) PH (test code = 4.8-8.0 2608945324) SP GRAVITY (test code = 1.003-1.030 8340385431) GLU U QUAL (test code = Normal Normal 1404993849) BLOOD (test code = 1+ Negative A 0500763579) KETONES (test code = Negative Negative 7739277724) PROTEIN (test code = Negative Negative 2887-8) UROBILIN (test code = Normal Normal 3496577029) BILIRUBIN (test code = Negative Negative 6675037181) NITRITE (test code = Negative Negative 1711974855) LEUK DEANDRE (test code = Negative Negative 1287610988) RBC/HPF (test code = See_Comment H [Autom ated message] 8971303522) The system [employer] generated this result transmitted ref erence range: 0 - 3 HP F. The reference range was not used to int erpret this result as normal/abnormal . WBC/HPF (test code = See_Comment [Autom ated message] 1020456672) The system [employer] generated this result transmitted ref erence range: 0 - 5 HP F. The reference range was not used to int erpret this result as normal/abnormal . BACTERIA (test code = Negative Negative 5783645566) MUCOUS (test code = Slight Negative LPF A 0427841471) Lab Interpretation (test Abnormal code = 33288-1) [facility] [place] [facility]. METABOLIC PANEL (48396)2020-06-29 21:03:00 Test Item Value Reference Range Interpretation Comments NA (test code = 139 mmol/L 135-145 9964503796) K (test code = 3.9 mmol/L 3.5-5 1286392709) CL (test code = 102 mmol/L 98-108 1931491552) CO2 TOTAL (test code = 27 mmol/L 23-31 4931288859) AGAP (test code = 2-16 5090115290) BUN (test code = 11 mg/dL 7-23 1094532684) GLUCOSE (test code = 87 mg/dL 70-110 2813720354) CREATININE (test code = 0.89 mg/dL 0.6-1.25 1816489697) TOTAL BILI (test code = 0.3 mg/dL 0.1-1.9 3621554801) CALCIUM (test code = 10.2 mg/dL 8.6-10.6 6762718902) T PROTEIN (test code = 8.6 g/dL 6.3-8.2 H 0435286549) ALBUMIN (test code = 5.0 g/dL 3.5-5 4053878010) ALK PHOS (test code = 67 U/L 34-122 0478922749) ALTv (test code = 37 U/L 5-50 1742-6) AST(SGOT) (test code = 32 U/L 13-40 4870234204) eGFR Calculation mL/min/1.73m2 (Non-) (test code = 0193681118) eGFR Calculation mL/min/1.73m2 () (test code = 2410553805) TOR (test code = TOR) Association of [...] tests). Lab Interpretation Abnormal (test code = 04829-7) [facility] 21:02:00 Test Item Value Reference Range Interpretation Comments LIPASE (test code = 2061470923) 27 U/L 0-220 Lab Interpretation (test code = Normal 85152-0) [facility] WITH [id number] 20:53:00 Test Item Value Reference Range Interpretation Comments WBC (test code = See_Comment [Automated 6344-2) message] The sy stem which generated this [...] RDW-SD (test code = 43.6 fL 38.5-51.6 52829-6) RDW-CV (test code = 13.2 % 12.1-15.4 788-0) PLT (test code = See_Comment H [Automated 777-3) message] The sy stem which generated this result transmitted reference range : 150 - 328 10*3/ ?L. The reference r yo was not used to interpret this result as normal/abnormal . MPV (test code = 9.3 fL 9.8-13 L 60644-9) NRBC/100 WBC (test See_Comment [Automat ed code = 9787779446) message] The system which generated this result transmitted reference range : 0.0 - 10.0 /100 WBCs. The refer ence range was not u sed to interpret th is result as normal/abnormal . NRBC x10^3 (test code <0.01 See_Comment [Auto mated = 3890339388) message] The s ystem which generated this result transmitted reference range : 10*3/?L. The reference range was not used to interpret this result as normal/abnormal . GRAN MAT (NEUT) % 44.3 % (test code = 770-8) IMM GRAN % (test code 1.70 % = 8747698664) LYMPH % (test code = 39.1 % 736-9) MONO % (test code = 6.8 % 5905-5) EOS % (test code = 7.2 % 713-8) BASO % (test code = 0.9 % 706-2) GRAN MAT x10^3(ANC) 3.41 10*3/uL 1.99-6.95 (test code = 6295813761) IMM GRAN x10^3 (test 0.13 10*3/uL 0-0.06 H code = 3448860829) LYMPH x10^3 (test code 3.01 10*3/uL 1.09-3.23 = 731-0) MONO x10^3 (test code 0.52 10*3/uL 0.36-1.02 = 742-7) EOS x10^3 (test code = 0.55 10*3/uL 0.06-0.53 H 711-2) BASO x10^3 (test code 0.07 10*3/uL 0.01-0.09 = 704-7) Lab Interpretation Abnormal (test code = 33263-1) [facility]] TSH, 3RD GENERATION W/REFLEX TO FT4 2018-04-10 09:01:01 Test Item Value Reference Range Interpretation Comments TSH (test code = 70948-1) 1.760 {uIU/ml} 0.360-3.740 [facility]] HEPATITIS [id number] 09:01:01 Test Item Value Reference Range Interpretation Comments Hepatitis B Surface Antigen (test Negative Negative code = 5195-3) Hepatitis C Antibody (test code = Negative 54432-6) Hepatitis B Core IgM (test code = Negative Negative 25043-1) Hepatitis A IgM (test code = Negative Negative 32274-2) [facility][] HIV AB, HIV 1/2, EIA, WITH [id number] 09:01:01 Test Item Value Reference Range Interpretation Comments HIV Ag/Ab 4th Gen (test code = Negative Negative 70764-6) [facility]] [id number] 09:01:01 Test Item Value Reference Range Interpretation Comments RPR (test code = 31478-3) Non-Reactive Non-Reactive [facility][] GC/CT by Amp Det (APTIMA)2018-04-10 09:01:01 Test Item Value Reference Range Interpretation Comments Source APTIMA Urine (test code = Source APTIMA) N gonorrhea by Amp Negative Negative The APTIM A assay is a Det (APTIMA) (test target am plification code = 77901-3) nucleic acid probe test utilizingtarget capture for the qualitative detection and differentia tion of ribosomalRNA fr om Neisseria gonorrhoeae to aid in the diagnosis of di sease fromsymptomatic and asymptomatic in dividuals using the [employer] ER System.This ass ay utilizes FDA cleared IVD reagents. Performance juani racteristics havebeen verifi ed by the [facility] Laboratory with in [facility].The [facility] r[facility] is authorized unde r the Clinical LaboratoryImpro vement Amendments of 1 988 (CLIA-88) to pe rform high complexity test ing. C trachomatis by Negative Negative The APTIMA assay is a Amp Det (APTIMA) target ampl ification (test code = nucleic acid pr obe test 93941-1) utilizingtarget capture for the qualitative detection and differentia tion of ribosomalRNA fr om Chlamydia trachomatis to aid in the diagnosis of di sease fromsymptomatic and asymptomatic in dividuals using the [employer] ER System.This ass ay utilizes FDA cleared IVD reagents. Performance juani racteristics havebeen verifi ed by the [facility] Laboratory with in [facility].The [facility] [facility] ratory is authorized unde r the Clinical LaboratoryImpro vement Amendments of 1 988 (CLIA-88) to pe rform high complexity test ing. [facility]"
[2022-02-21] MEDS ORDERED: NA CHLORIDE 0.9% 1,000 ML ONE ×2 (17:49→18:24)
[2022-02-21 18:01] LABS: Absolute Lymphocytes (CBC) 1.4 K/uL (0.7-4.9); Hematocrit 27.7 % (39.6-49.0); MPV 7.6 fL (7.6-11.3); RBC Red Blood Cell Count 3.55 M/uL (4.33-5.43)
[2022-02-21 18:06] LABS: Protime INR 2.04
[2022-02-21] MEDS ORDERED: CEFEPIME 2 GM VIAL ONE (18:24)
[2022-02-21] MEDS ORDERED: NA CHLORIDE 0.9% 100 ML IV ONE (18:24)
[2022-02-21] MEDS ORDERED: VANCOMYCIN 1 GM/VIAL ONE (18:24)
[2022-02-21] MEDS ORDERED: NA CHLORIDE 0.9% 250 ML ONE (18:24)
[2022-02-21 18:29] LABS: Albumin 2.5 g/dL (3.4-5.0); Potassium 5.4 mmol/L (3.5-5.1); Protein, Total 6.6 g/dL (6.4-8.2)
[2022-02-21 18:35] LABS: Blood Morphology Comment NOT SEEN (NOT SEEN); Platelet Estimate INCR; Toxic Granulation 2+
--- NOTE | 2022-02-21 18:38 | RAD REPORT ---
EXAM DESCRIPTION: US - Extrem Venous W Compress Bubba - 02/21/2022 6:28 pm CLINICAL HISTORY: SWELLING Bilateral leg edema and swelling. COMPARISON: No comparisons TECHNIQUE: Real-time sonographic interrogation of the left and right lower extremity deep venous sys tems was performed. FINDINGS: Normal compressibility, flow augmentation, phasic flow and spontaneous flow is identified in both the left and right lower extremity deep venous systems. IMPRESSION: No sonographic evidence of left or right lower extremity deep venous thrombosis.
--- NOTE | 2022-02-21 18:57 | RAD REPORT ---
EXAM DESCRIPTION: CT - Chest Abd Pelvis Wo Con - 02/21/2022 6:48 pm CLINICAL HISTORY: Chest and abdomen pain. abdominal pain COMPARISON: No comparisons TECHNIQUE: A limited noncontrast study was performed. All CT scans are performed using dose optimization technique as appropriate and may include automated exposure control or mA/KV adjustment according to patient size. FINDINGS: Mild the dependent pulmonary opacities are present in the posterior lung bases.No focal in filtrate.Trace right pleural fluid.No intrathoracic adenopathy. The liver appears enlarged. No biliary dilatation. There is evidence of mild fluid surrounding the ga llbladder. The spleen, pancreas, adrenal glands and kidneys show no acute finding. Mild free fluid is seen in the abdomen and pelvis. Normal appendix. No bowel obstruction or free air. No pathologic lymphadenopathy in the abdomen or pelvis. No worrisome osseous finding. IMPRESSION: Hepatomegaly. Mild ascites. Mild pericholecystic fluid probably present.
--- NOTE | 2022-02-21 20:16 | RAD REPORT ---
EXAM DESCRIPTION: US - Abdomen Exam Limited - 02/21/2022 7:52 pm CLINICAL HISTORY: EPIGASTRIC PAIN COMPARISON: No comparisonsNo comparisons FINDINGS: The gallbladder demonstrates no gallstones. There is moderate nonspecific gallbladder wall thickening. The common bile duct is normal measuring 3 mm.. The liver demonstrates no findings of intrahepatic biliary dilatation. IMPRESSION: Moderate nonspecific gallbladder wall thickening. This can be seen in cases of hepatic inflammation or hypoalbuminemia.
[2022-02-21] MEDS ORDERED: VITAMIN K (ADULT) 10 MG/ML ONE (20:30)
[2022-02-21] MEDS ORDERED: PANTOPRAZOLE 40 MG INJ ONE (20:36)
--- NOTE | 2022-02-21 22:06 | ER ---
Nurse's Notes [facility] Name: Marek Anderson Age: 22 yrs Sex: Male : 2000 Arrival Date: 02/21/2022 Time: 16:58 Bed 13 Private MD: Diagnosis: Hepatorenal failure;Sepsis, unspecified organism Presentation: 02/21 17:26 Chief complaint: Patient states: he has been having left leg pain and swelling for ap3 approx one week. patient also reports abdominal pain, diarrhea, and feeling week for approx the last 3-5 days. Patient states he woke up yesterday morning with a rash on his BRANDEE lower extremities. patient presents to the ED today pale in color, and states he feels weak. Coronavirus screen: At this time, the client does not indicate any symptoms associated with coronavirus-19. Ebola Screen: No symptoms or risks identified at this time. Initial Sepsis Screen: Does the patient meet any 2 criteria? Systolic BP < 90 mmHg. Mean Arterial Pressure (MAP) < 65. Yes Does the patient have a suspected source of infection? No. Patient's initial sepsis screen is negative. If YES to both, name of provider notified: Benny Jordan CHARGE AUTHORIZER. Risk Assessment: Do you want to hurt yourself or someone else? Patient reports no desire to harm self or others. Onset of symptoms was February 17, 2022. 17:26 Method Of Arrival: Wheelchair ap3 17:26 Method Of Arrival: Ambulatory ap3 17:26 Acuity: RASHMI 2 ap3 Triage Assessment: 17:31 General: Appears slender, Behavior is calm, Reports fever for feeling ill for fatigue ap3 for. Pain: Complains of pain in abdomen, right leg and left leg. Neuro: Level of Consciousness is awake, alert, obeys commands, Oriented to person, place, time, situation, Weakness Gait is unsteady, Speech is normal. Cardiovascular: Patient's skin is warm and dry. Respiratory: Airway is patent Respiratory effort is even, unlabored, Respiratory pattern is regular, symmetrical. GI: Reports lower abdominal pain, upper abdominal pain, diarrhea. Derm: Wound noted right leg and left leg. Historical: - Allergies: 17:28 No Known Allergies; ap3 - Home Meds: 17:28 None [Active]; ap3 - Immunization history:: Client reports receiving the 2nd dose of the Covid vaccine, Flu vaccine is not up to date. - Social history:: Smoking status: Patient reports the use of cigarette tobacco products, smokes one-half pack cigarettes per day. Screenin:31 Abuse screen: Denies threats or abuse. Nutritional screening: No deficits noted. ap3 Tuberculosis screening: No symptoms or risk factors identified. 17:45 Fall Risk No fall in past 12 months (0 pts). No secondary diagnosis (0 pts). IV access ww (20 points). Ambulatory Aid- None/Bed Rest/Nurse Assist (0 pts). Gait- Weak (10 pts.). Mental Status- Oriented to own ability (0 pts). Total Hudson Fall Scale indicates No Risk (0-24 pts). 17:45 Sepsis Screening:. ww Assessment: 17:30 General: Appears ill, slender, Behavior is drowsy. Pain: Complains of pain in ww generalized pain, pain on bilateral feet and legs. Neuro: Level of Consciousness is awake, alert, drowsy. Oriented to person, place, time, situation. Cardiovascular: Capillary refill is > 3 seconds Edema is 2+ to left foot and right foot Rhythm is regular. Respiratory: Airway is patent Respiratory effort is even, unlabored, Respiratory pattern is regular, symmetrical. GI: Abdomen is non-distended, Abdomen is tender to palpation X 4 quads. Reports lower abdominal pain, upper abdominal pain, constipation, diarrhea, bloody stool, nausea, vomiting. Derm: Skin is intact, Bruising that is dark purple, bilateral feet, bilateral lower extremities . 18:16 Reassessment: Patient appears in no apparent distress at this time. No changes from ww previously documented assessment. Patient and/or family updated on plan of care and expected duration. Pain level reassessed. 19:18 General: Appears ill. Derm: Skin is jaundiced, pale. as6 Vital Signs: 17:26 BP 71 / 46; Temp 98.8; Weight 68.04 kg; Height 6 ft. 1 in. (185.42 cm); ap3 17:45 BP 80 / 46; Pulse 91; Resp 14; Pulse Ox 91% on 2 lpm NC; ww 18:14 BP 96 / 59; Pulse 97; Resp 14; Pulse Ox 2 lpm NC; ww 19:19 BP 93 / 65; Pulse 95; Resp 10 S; as6 19:19 Pulse Ox 2 lpm NC; as6 19:45 BP 99 / 63; Pulse 94; Resp 12 S; Pulse Ox 2 lpm NC; as6 20:15 BP 77 / 62; Pulse 94; Resp 20 S; Pulse Ox 2 lpm NC; as6 21:10 BP 87 / 52; Pulse 92; Resp 15; as6 21:29 BP 74 / 39; Pulse 91; Resp 10 S; as6 22:00 BP 85 / 56; Pulse 92; Resp 14 S; Pulse Ox 98% on 4 lpm NC; as6 22:30 BP 92 / 59; Pulse 89; Resp 13 S; Pulse Ox 99% on 4 lpm NC; as6 23:00 BP 95 / 62; Pulse 87; Resp 16 S; Pulse Ox 95% on 4 lpm NC; as6 23:30 BP 98 / 68; Pulse 90; Resp 19 S; Pulse Ox 100% on 4 lpm NC; as6 04 00:00 BP 94 / 59; Pulse 86; Resp 13 S; Pulse Ox 97% on 4 lpm NC; as6 00:30 BP 105 / 72; Pulse 90; Resp 13 S; Pulse Ox 99% on 4 lpm NC; as6 01:07 BP 90 / 76; Pulse 94; Resp 19 S; Pulse Ox 95% on R/A; as6 02/21 17:26 Body Mass Index 19.79 (68.04 kg, 185.42 cm) ap3 ED Course: 02/21 16:58 Patient arrived in ED. as 17:17 Radha Rodriguez RN is Primary Nurse. ww 17:23 Benny Jordan NP is PHCP. pm1 17:23 Lacy Sampson MD is Attending Physician. pm1 17:28 Triage completed. ap3 17:33 Arm band placed on right wrist. ap3 17:33 Patient has correct armband on for positive identification. Placed in gown. Bed in low ap3 position. Call light in reach. Side rails up X2. Adult w/ patient. bus driver/monitor on. Pulse ox on. NIBP on. Door closed. Noise minimized. 17:35 EKG done, COVID swab sent to lab. Inserted saline lock: 20 gauge in left antecubital ww area, using aseptic technique. Blood collected. 18:29 Extrem Venous W Compression Brandee US In Process Unspecified. EDMS 18:50 Chest Abd Pelvis Wo Con In Process Unspecified. EDMS 19:19 Primary Nurse role handed off by Radha Rodriguez, CINTHYA mw2 19:54 US Abdomen Limited In Process Unspecified. EDMS 20:01 Estiven Birch, CINTHYA is Primary Nurse. as6 20:16 initiated a transfer with Madalyn from [facility]. mw2 21:04 faxed patients demographic information to [facility]. mw2 21:30 Inserted saline lock: 20 gauge in right forearm, using aseptic technique. Blood as6 collected. 21:40 [facility] mw2 21:47 intiated a transfer with Nilda from [facility]. mw2 22:06 Assisted provider with central line placement. Set up central line tray. Triple lumen as6 line placed in right femoral. Line placed by Aram Marquez MD Placement verified by blood return, Dressed with Tegaderm, Blood was collected. Patient tolerated well. 22:42 connected Benny Jordan CHARGE AUTHORIZER with the Grapple Crew Leader from [facility]. mw2 23:14 Notified Nurse Practitioner and/or Physician Head Boys Golf Coach of a critical lab result(s), bb Potassium of 6.2, AST 5368, ALT 2864 Benny Jordan notified. 23:14 administrative approval given by Nilda Crockett/ patient has been accepted to [address] bed [id number]/ Dr. Chan accepted the patient in transfer/report to be called to [phone]. 02/22 01:30 Patient transferred, IV remains in place. as6 Administered Medications: 02/21 17:49 Drug: NS 0.9% (30 ml/kg) 30 ml/kg Route: IV; Rate: bolus; Site: left antecubital; ww 22:25 Follow up: Response: No adverse reaction; IV Status: Completed infusion; IV Intake: as6 2041.2ml 18:24 Drug: Cefepime 2 grams Route: IVPB; Rate: 200 ml/hr; Infused Over: 30 mins; Site: left ww antecubital; 22:25 Follow up: Response: No adverse reaction; IV Status: Completed infusion; IV Intake: as6 100ml 19:01 Drug: vancoMYCIN 1 grams Route: IVPB; Infused Over: 2 hrs; Site: left antecubital; ww 22:26 Follow up: Response: No adverse reaction; IV Status: Completed infusion; IV Intake: as6 250ml 21:08 Drug: ProTONIX (pantoprazole) 80 mg Route: IVP; Site: right forearm; 22:25 Follow up: Response: No adverse reaction 21:09 Drug: Vitamin K1 (phytonadione) 10 mg Route: Sub-Q; Site: left upper arm; as6 22:25 Follow up: Response: No adverse reaction 21:58 Drug: NS 0.9% 1000 ml Route: IV; Rate: 1000 ml; Site: right femoral; 04/06 00:25 Follow up: Response: No adverse reaction; IV Status: Completed infusion; IV Intake: as6 1000ml 00:15 Drug: Albumin 25 grams Volume: 100 ml; Route: IVPB; Site: right femoral; :23 Follow up: Response: No adverse reaction; IV Status: Completed infusion; IV Intake: [id number] 00:15 Drug: Calcium Gluconate 1 grams Route: IVPB; Infused Over: 60 mins; Site: right femoral;:23 Follow up: Response: No adverse reaction; IV Status: Completed infusion; IV Intake: as6 100ml 00:15 Drug: Albuterol - atroVENT (ipratropium) (3:1) (2.5 mg - 0.5 mg) 3 ml Route: Nebulizer; :22 Follow up: Response: No adverse reaction 00:15 Drug: D50W 50 ml Route: IVP; Site: right femoral; :22 Follow up: Response: No adverse reaction 00:15 Drug: Insulin Regular Human 5 units {Co-Signature: kd3 (Hailey Gan RN).} Route: IVP; Site: right femoral; Follow up: Response: No adverse reaction 00:15 Drug: Sodium Bicarbonate 1 amp Route: IVP; Site: right femoral; :22 Follow up: Response: No adverse reaction 00:30 Drug: MucoMYST 140 mg/kg Route: PO; :23 Follow up: Response: No adverse reaction 00:30 Drug: Kayexalate (polystyrene) 45 grams Route: PO; as6 01:22 Follow up: Response: No adverse reaction as6 Intake: 02/21 22:25 IV: 2041ml; Total: 2041ml. as6 22:25 IV: 100ml; Total: 2141ml. as6 22:26 IV: 250ml; Total: 2391ml. as6 02/22 00:25 IV: 1000ml; Total: 3391ml. as6 01:23 IV: 100ml; Total: 3491ml. as6 01:23 IV: 50ml; Total: 3541ml. as6 Outcome: 02/21 22:05 ER care complete, transfer ordered by . pm1 02/22 01:30 Transferred by ground EMS to [facility], Transfer form completed. as6 X-rays sent w/ patient. Condition: stable Instructed on the need for admit. 01:31 Patient left the ED. as6 Signatures: Dispatcher [employer] Nery Malhotra Brenda, RN RN bb Benny Jordan, CHARGE AUTHORIZER CHARGE AUTHORIZER pm1 Arleth Joy RN RN ap3 Tonio Foley mw2 Estiven Birch RN RN as6 Radha Rodriguez RN RN ww Hailey Gan RN kd3
--- NOTE | 2022-02-21 22:06 | EDPHYS ---
Physician Documentation [facility] Name: Marek Anderson Age: 22 yrs Sex: Male : 2000 Arrival Date: 02/21/2022 Time: 16:58 Bed 13 Private MD: ED Physician Lacy Sampson HPI: 02/21 17:31 This 22 yrs old Male presents to ER via Ambulatory with complaints of Feet Swelling, pm1 Skin Problem, Nausea/Vomiting, Weakness. 17:31 The patient presents to the emergency department with weakness of the entire body, pm1 generalized weakness. Onset: The symptoms/episode began/occurred 5 day(s) ago. Associated signs and symptoms: Pertinent positives: abdominal pain, diarrhea, left foot pain. Onset of rash yesterday morning to bilateral lower extremities, Pertinent negatives: fever. Severity of symptoms: in the emergency department the symptoms are worse. Patient's baseline: Neuro: alert and fully oriented, Motor: no deficits, Ambulation: walks without assistance, Speech: normal. The patient has not experienced similar symptoms in the past. The patient has not recently seen a physician. 22-year-old male presented to ER with complaints of generalized weakness ongoing for 5 days. Also complaining of abdominal pain with diarrhea and left foot swelling. Patient also reports a rash to his lower extremities that started yesterday. Patient with history of IV heroin use onset age 16. Last use of IV heroin 1 to 2 days ago. Historical: - Allergies: 17:28 No Known Allergies; ap3 - Home Meds: 17:28 None [Active]; ap3 - Immunization history:: Client reports receiving the 2nd dose of the Covid vaccine, Flu vaccine is not up to date. - Social history:: Smoking status: Patient reports the use of cigarette tobacco products, smokes one-half pack cigarettes per day. ROS: 17:33 Constitutional: Negative for fever, chills, and weight loss, Cardiovascular: Negative pm1 for chest pain, palpitations, and edema, Respiratory: Negative for shortness of breath, cough, wheezing, and pleuritic chest pain. 17:33 Back: Negative for injury and pain, MS/Extremity: Negative for injury and deformity, Skin: Negative for injury, rash, and discoloration. 17:33 Abdomen/GI: Positive for abdominal pain, diarrhea, of the right upper quadrant and left upper quadrant, Negative for nausea and vomiting. 17:33 Neuro: Positive for weakness, generalized, Negative for headache. 17:33 All other systems are negative. Exam: 17:33 Head/Face: Normocephalic, atraumatic. pm1 17:33 Back: No spinal tenderness. No costovertebral tenderness. Full range of motion. 17:33 Constitutional: The patient appears alert, awake, comfortable, non-diaphoretic, well developed, well hydrated, well groomed, well nourished, pale. 17:33 Eyes: Periorbital structures: appear normal, Pupils: no acute changes, Extraocular movements: no acute changes, Conjunctiva: pale, Sclera: no acute changes. 17:33 Cardiovascular: Exam negative for acute changes, Rate: normal, Rhythm: regular, Pulses: no pulse deficits are appreciated. 17:33 Respiratory: Exam negative for acute changes, respiratory distress, shortness of breath. 17:33 Abdomen/GI: Inspection: abdomen appears normal, Palpation: soft, in all quadrants, mild abdominal tenderness, in the right upper quadrant and left upper quadrant. 17:33 Skin: Appearance: normal except for affected area, Color: pale. 17:33 Neuro: Exam negative for acute changes, Orientation: is normal, Mentation: is normal, Motor: is normal, moves all fours. 20:08 Abdomen/GI: Rectal exam: is unremarkable, rectal tone normal, Stool: normal, guaiac pm1 negative, Hailey RN supervisor agency appointments. Vital Signs: 17:26 BP 71 / 46; Temp 98.8; Weight 68.04 kg; Height 6 ft. 1 in. (185.42 cm); ap3 17:45 BP 80 / 46; Pulse 91; Resp 14; Pulse Ox 91% on 2 lpm NC; ww 18:14 BP 96 / 59; Pulse 97; Resp 14; Pulse Ox 2 lpm NC; ww 19:19 BP 93 / 65; Pulse 95; Resp 10 S; as6 19:19 Pulse Ox 2 lpm NC; as6 19:45 BP 99 / 63; Pulse 94; Resp 12 S; Pulse Ox 2 lpm NC; as6 20:15 BP 77 / 62; Pulse 94; Resp 20 S; Pulse Ox 2 lpm NC; as6 21:10 BP 87 / 52; Pulse 92; Resp 15; as6 21:29 BP 74 / 39; Pulse 91; Resp 10 S; as6 22:00 BP 85 / 56; Pulse 92; Resp 14 S; Pulse Ox 98% on 4 lpm NC; as6 22:30 BP 92 / 59; Pulse 89; Resp 13 S; Pulse Ox 99% on 4 lpm NC; as6 23:00 BP 95 / 62; Pulse 87; Resp 16 S; Pulse Ox 95% on 4 lpm NC; as6 23:30 BP 98 / 68; Pulse 90; Resp 19 S; Pulse Ox 100% on 4 lpm NC; as6 04/06 00:00 BP 94 / 59; Pulse 86; Resp 13 S; Pulse Ox 97% on 4 lpm NC; as6 00:30 BP 105 / 72; Pulse 90; Resp 13 S; Pulse Ox 99% on 4 lpm NC; as6 01:07 BP 90 / 76; Pulse 94; Resp 19 S; Pulse Ox 95% on R/A; as6 02/21 17:26 Body Mass Index 19.79 (68.04 kg, 185.42 cm) ap3 Procedures: 02/21 22:03 Central Line: the site was prepped with Betadine, in sterile fashion, a triple lumen pm1 catheter was inserted, in the right femoral vein, in 1 attempts. placement was verified, by blood return, the site was dressed with Tegaderm, using sterile technique, the patient tolerated the procedure, well. MDM: 17:23 Patient medically screened. pm1 20:08 Counseling: I had a detailed discussion with the patient and/or guardian regarding: the pm1 historical points, exam findings, and any diagnostic results supporting the discharge/admit diagnosis, lab results, radiology results, the need to transfer to another facility, for higher level of care, [facility] does not immediately have the required specialist, Need Hepatology. 20:32 Data reviewed: vital signs. pm1 22:10 ED course: Patient's reevaluated after bolus and central line placed for pressors as pm1 needed. 23:04 Physician consultation: Optical Brightener Maker Helper Val was contacted at 23:04, regarding regarding pm1 transfer, patient's condition, and will see patient Discussed case with Dr. Kalani Reyes and would like mucomyst and albumin started. 02/21 17:31 Order name: Blood Culture Adult (2) ap3 02/21 17:31 Order name: CBC with Diff; Complete Time: 19:57 ap3 02/21 17:31 Order name: CMP; Complete Time: 18:33 ap3 02/21 17:31 Order name: Lactate; Complete Time: 18:29 ap3 02/21 17:31 Order name: Protime (+inr); Complete Time: 18:16 ap3 02/21 17:31 Order name: Ptt, Activated; Complete Time: 18:16 ap3 02/21 17:31 Order name: Urine Culture ap3 02/21 17:31 Order name: Urine Microscopic Only; Complete Time: 00:02 ap3 02/21 17:31 Order name: UDS; Complete Time: 00:02 ap3 02/21 17:31 Order name: COVID-19 SARS RT PCR (Document "Date of Onset" if Symptomatic); Complete ap3 Time: 19:09 02/21 17:36 Order name: Type And Screen; Complete Time: 18:43 pm1 02/21 18:33 Order name: Tylenol Level; Complete Time: 19:15 pm1 02/21 18:33 Order name: ETOH Level; Complete Time: 19:09 pm1 02/21 18:33 Order name: Salicylate; Complete Time: 19:41 pm1 02/21 17:31 Order name: Extrem Venous W Compression Bubba US; Complete Time: 18:43 ap3 02/21 18:35 Order name: Manual Differential; Complete Time: 19:57 EDMS 02/21 18:36 Order name: Chest Abd Pelvis Wo Con; Complete Time: 19:09 EDMS 02/21 19:18 Order name: US Abdomen Limited; Complete Time: 20:20 pm1 02/21 19:54 Order name: Slides for Pathologist Review EDMS 02/21 19:54 Order name: AMMONIA; Complete Time: 21:25 pm1 02/21 21:24 Order name: CBC with Diff; Complete Time: 23:27 pm1 02/21 21:24 Order name: CMP; Complete Time: 23:18 pm1 02/21 21:34 Order name: Lactate Sepsis 2 HR Follow-up; Complete Time: 21:57 EDMS 02/21 23:18 Order name: Urine Dipstick-Ancillary; Complete Time: 23:27 EDMS 02/21 17:31 Order name: Accucheck; Complete Time: 18:18 ap3 02/21 17:31 Order name: Cardiac monitoring; Complete Time: 17:49 ap3 02/21 17:31 Order name: EKG - Nurse/Tech; Complete Time: 18:00 ap3 02/21 17:31 Order name: IV Saline Lock - Large Bore; Complete Time: 17:49 ap3 02/21 17:31 Order name: Labs collected and sent; Complete Time: 17:49 ap3 02/21 17:31 Order name: O2 Per Protocol; Complete Time: 17:49 ap3 02/21 17:31 Order name: O2 Sat Monitoring; Complete Time: 17:49 ap3 02/21 17:31 Order name: Urine Dipstick-Ancillary (obtain specimen); Complete Time: 23:38 ap3 02/21 22:42 Order name: Labs - recollect needed: purple top needed; Complete Time: 23:01 mw2 02/21 23:23 Order name: EKG; Complete Time: 23:23 pm1 02/21 23:23 Order name: EKG - Nurse/Tech; Complete Time: 23:44 pm1 Administered Medications: 17:49 Drug: NS 0.9% (30 ml/kg) 30 ml/kg Route: IV; Rate: bolus; Site: left antecubital; 22:25 Follow up: Response: No adverse reaction; IV Status: Completed infusion; IV Intake: as6 2041.2ml 18:24 Drug: Cefepime 2 grams Route: IVPB; Rate: 200 ml/hr; Infused Over: 30 mins; Site: left ww antecubital; 22:25 Follow up: Response: No adverse reaction; IV Status: Completed infusion; IV Intake: as6 100ml 19:01 Drug: vancoMYCIN 1 grams Route: IVPB; Infused Over: 2 hrs; Site: left antecubital; 22:26 Follow up: Response: No adverse reaction; IV Status: Completed infusion; IV Intake: as6 250ml 21:08 Drug: ProTONIX (pantoprazole) 80 mg Route: IVP; Site: right forearm; as6 22:25 Follow up: Response: No adverse reaction as6 21:09 Drug: Vitamin K1 (phytonadione) 10 mg Route: Sub-Q; Site: left upper arm; as6 22:25 Follow up: Response: No adverse reaction as6 21:58 Drug: NS 0.9% 1000 ml Route: IV; Rate: 1000 ml; Site: right femoral; as6 02/22 00:25 Follow up: Response: No adverse reaction; IV Status: Completed infusion; IV Intake: as6 1000ml 00:15 Drug: Albumin 25 grams Volume: 100 ml; Route: IVPB; Site: right femoral; 01:23 Follow up: Response: No adverse reaction; IV Status: Completed infusion; IV Intake: [id number] 00:15 Drug: Calcium Gluconate 1 grams Route: IVPB; Infused Over: 60 mins; Site: right femoral;as 01:23 Follow up: Response: No adverse reaction; IV Status: Completed infusion; IV Intake: as6 100ml 00:15 Drug: Albuterol - atroVENT (ipratropium) (3:1) (2.5 mg - 0.5 mg) 3 ml Route: Nebulizer; 01:22 Follow up: Response: No adverse reaction as6 00:15 Drug: D50W 50 ml Route: IVP; Site: right femoral; 01:22 Follow up: Response: No adverse reaction as6 00:15 Drug: Insulin Regular Human 5 units {Co-Signature: kd3 (Hailey Gan RN).} Route: IVP; Site: right femoral; Follow up: Response: No adverse reaction as6 00:15 Drug: Sodium Bicarbonate 1 amp Route: IVP; Site: right femoral; 01:22 Follow up: Response: No adverse reaction as6 00:30 Drug: MucoMYST 140 mg/kg Route: PO; :23 Follow up: Response: No adverse reaction as6 00:30 Drug: Kayexalate (polystyrene) 45 grams Route: PO; 01:22 Follow up: Response: No adverse reaction as6 Disposition Summary: 02/21/22 22:05 Transfer Ordered Transfer Location: [facility] pm1 Reason: Higher level of care pm1 Condition: Fair pm1 Problem: new pm1 Symptoms: have improved pm1 Accepting Physician: (02/22/22 01:31) as6 Diagnosis - Hepatorenal failure pm1 - Sepsis, unspecified organism pm1 Forms: - Medication Reconciliation Form pm1 - SBAR form pm1 Signatures: Dispatcher [employer] EDMS Aram Marquez MD MD cha Marinas, Patrick, HUMAN RESOURCES SUPPORT SPECIALIST HUMAN RESOURCES SUPPORT SPECIALIST pm1 Arleth Joy, RN RN ap3 Tonio Foley mw2 Lacy Sampson MD MD sp3 Estiven Birch RN RN as6 Radha Rodriguez RN RN ww Hailey Gan RN kd3 Corrections: (The following items were deleted from the chart) 02/21 18:36 17:32 Chest Abdomen Pelvis W Con+CT.RAD.BRZ ordered. [facility] EDMI 02/22 01:31 02/21 22:05 MD silva1 as6
[2022-02-21] MEDS ORDERED: NOREPINEPHRINE 4mg/D5W 250mL 4 MG/250 ML BAG IV ONE (22:14)
[2022-02-21 23:08] LABS: Albumin 2.3 g/dL (3.4-5.0); Bilirubin Total 1.2 mg/dL (0.2-1.0); Protein, Total 5.8 g/dL (6.4-8.2)
[2022-02-21 23:14] LABS: Potassium 6.2 mmol/L (3.5-5.1)
[2022-02-21 23:18] LABS: Urine Blood 3+ (Negative); Urine Glucose Negative (Negative); Urine Protein 2+ (Negative); Urine Specific Gravity >=1.030 (1.005-1.030); Urine pH 5.5 (5.0-7.0)
[2022-02-21 23:20] LABS: Absolute Lymphocytes (CBC) 1.7 K/uL (0.7-4.9); Hematocrit 24.2 % (39.6-49.0); Lymphocytes % 6.4 % (15.3-44.8); MPV 7.7 fL (7.6-11.3); RBC Red Blood Cell Count 3.12 M/uL (4.33-5.43)
[2022-02-21] MEDS ORDERED: ALBUTEROL 2.5 MG/3 ML NEB SOL ONE (23:36)
[2022-02-21] MEDS ORDERED: SOD POLYSTYREN SUL 15 GM/60 ML UCUP ONE (23:37)
[2022-02-21] MEDS ORDERED: INSULIN -REGULAR HUMAN 50 UNIT/0.5 ML ML ONE (23:37)
[2022-02-21] MEDS ORDERED: IPRATROPIUM BROM 0.5MG/2.5ML ONE (23:37)
[2022-02-21] MEDS ORDERED: ALBUMIN HUMAN 25% 50 ML IV ONE (23:38)
[2022-02-21] MEDS ORDERED: CALCIUM GLUCONATE 1 GM IVPB 1 GM/50 ML BAG IV ONE (23:38)
[2022-02-21] MEDS ORDERED: SODIUM BICARB 50 MEQ/50ML VIAL ONE (23:38)
[2022-02-21] MEDS ORDERED: ACETYLCYST 6,000 MG/30 ML VIAL ONE ×2 (23:38→23:58)
[2022-02-21] MEDS ORDERED: D10W 250 ML IV ONE (23:39)
[2022-02-21 23:48] LABS: Barbiturates NEGATIVE (NEGATIVE); Benzodiazepines NEGATIVE (NEGATIVE); Cocaine NEGATIVE (NEGATIVE); METHAMPHETAM NEGATIVE (NEGATIVE); Methadone NEGATIVE (NEGATIVE); Opiates POSITIVE (NEGATIVE); Phencyclidine NEGATIVE (NEGATIVE); THC Cannibis NEGATIVE (NEGATIVE)
[2022-02-21 23:59] LABS: Urine Bacteria >50 /HPF (NONE SEEN); Urine Urothelial Cells <5 /HPF (NONE SEEN)
[2022-02-22] LABS: Urine RBC <5 /HPF (NONE SEEN)
--- NOTE | 2022-02-22 07:11 | EKG ---
Test Date: 2022-02-21 Test Time: 17:58:39 Ammonia Box Tender: ALDO MEASUREMENT RESULTS: Intervals: Rate: 94 [place]: 136 QRSD: 92 QT: 406 QTc: 507 [place]: P: 67 [place]: 136 QRS: 67 T: 58 INTERPRETIVE STATEMENTS: Normal sinus rhythm Anterior infarct, age undetermined Prolonged QT Abnormal ECG Compared to ECG 12/20/2021 12:12:09 Myocardial infarct finding now present Prolonged QT interval now present Sinus tachycardia no longer present Electronically Signed On 02-22-22 07:09:34 CDT by Homer French
[2022-02-22 16:09] VITALS: TEMP 98.8
[2022-02-22 16:36] VITALS: BP 90/76; O2SAT 95
--- NOTE | 2022-02-22 16:40 | EKG ---
Test Date: 2022-02-21 Test Time: 23:30:19 Clinical Assoc: DANIEL MEASUREMENT RESULTS: Intervals: Rate: 90 [place]: 152 QRSD: 102 QT: 420 QTc: 513 [place]: P: 72 [place]: 152 QRS: 88 T: 54 INTERPRETIVE STATEMENTS: Normal sinus rhythm Possible Inferior infarct, age undetermined Anterior infarct, age undetermined Prolonged QT Abnormal ECG Compared to ECG 02/21/2022 17:58:39 No significant changes Electronically Signed On 02-22-22 16:40:06 CDT by Homer French
== END 2022-02-22 01:31 | disposition short-term general hospital (02) ==
LOC: ER 16:56
PROC: 06HM33Z Insertion of Infusion Device into Right Femoral Vein, Percutaneous Approach (ICD-10-PCS; principal; 2022-02-22)
DX: K76.7 Hepatorenal syndrome (principal); A41.9 Sepsis, unspecified organism; D50.9 Iron deficiency anemia, unspecified; D75.839 Thrombocytosis, unspecified; R21 Rash and other nonspecific skin eruption; R19.7 Diarrhea, unspecified; F17.210 Nicotine dependence, cigarettes, uncomplicated; Z20.822 Contact with and (suspected) exposure to COVID-19
CPT/HCPCS: 36415; 71250; 74176; 76705; 80053; 80307; 80320; 80329; 81003; 81015; 82140; 83605; 85025; 85610; 85730; 86850; 86900; 86901; 87040; 87086; 87088; 87205; 93005; 93970; C9113; J0610; J0692; J3370; J3430; J7030; J7050; P9047; U0003

== ENCOUNTER 2022-07-25 00:03 | Emergency (ER) | payer OTHER ==
[2022-07-25] MEDS ORDERED: NALOXONE HCL 2 MG/2 ML VIAL ONE (00:23)
[2022-07-25] MEDS ORDERED: THIAMINE 200 MG/2 ML INJ ONE (00:23)
[2022-07-25] MEDS ORDERED: ONDANSETRON 4 MG/2 ML VIAL ONE (00:23)
[2022-07-25] MEDS ORDERED: NA CHLORIDE 0.9% 1,000 ML ONE ×4 (00:23→03:20)
[2022-07-25 00:37] LABS: Absolute Lymphocytes (CBC) 5.9 K/uL (0.7-4.9); Hematocrit 42.7 % (39.6-49.0); Lymphocytes % 37.6 % (15.3-44.8); MCV 84.1 fL (80-100); RBC Red Blood Cell Count 5.08 M/uL (4.33-5.43)
--- OUTSIDE RECORDS SUMMARY | 2022-07-25 00:38 | XMS REPORT | Continuity of Care Document ---
:[address] [facility] t Address [address] [place] [address] Care Team Providers Name Role Phone Maria A SINCLAIR, Purnima Primary Care Physician Maria A SINCLAIR, Purnima Attending Clinician Shyam MENDES, Kylie Attending Clinician Unavailable HUBERT MEJIA Attending Clinician Unavailable Luis Alberto Fonseca MD Attending Clinician Lincoln Rahman MD Attending Clinician Caron Browne DO Attending Clinician Cori SINCLAIR, Maury Macias Attending Clinician Hubert Mejia MD Attending Clinician Damien Shaver MD Attending Clinician Yarelis Agarwal MD Attending Clinician Pascual Chacon MD Attending Clinician Carito SINCLAIR, Osmar Cordero Attending Clinician [phone] Deshawn NAVA, Marry Jha Attending Clinician MARRY HESS Attending Clinician Unavailable Harvey SINCLAIR, Cuate Chou Attending Clinician [phone] CARLA BABCOCK Attending Clinician Unavailable Adrián SINCLAIR, Aj Light Attending Clinician Jillian SINCLAIR, Dae Sprague Attending Clinician [phone] Elsa SINCLAIR, Abdelrahman Schwartz Attending Clinician Jose SINCLAIR, Dayanara Lozada Attending Clinician Araceli SINCLAIR, Prince Attending Clinician Gómez SINCLAIR, Jessica Attending Clinician Jem SINCLAIR, Naveen Attending Clinician Thelma SINCLAIR, Nemesio Duval Attending Clinician Anjel SINCLAIR, Susan Attending Clinician Annabella SINCLAIR, Denisse Carter Attending Clinician Rhett SINCLAIR, Rodolfo Min Attending Clinician [phone] Arnold Villafana MD Attending Clinician ARNOLD VILLAFANA Attending Clinician Unavailable Paola SINCLAIR, Candy Attending Clinician Vicente Vazquez MD Attending Clinician Gemma Heredia Attending Clinician Unavailable HUSEYIN CARTER Attending Clinician Unavailable Kang Sierra DO Attending Clinician KANG SIERRA Attending Clinician Unavailable Doctor Unassigned, [place] Attending Clinician Unavailable Pamella Vilchis Attending Clinician PAMELLA AQUINO Attending Clinician Unavailable JULIO FONSECA M.D. Attending Clinician Unavailable KELLY ESPINOZA D.O. Attending Clinician Unavailable CARON BROWNE Admitting Clinician Unavailable Caron Browne DO Admitting Clinician ABDELRAHMAN BOOKER Admitting Clinician Unavailable Payers Payer Name Policy Type Policy Number Effective Date Expiration Date Verito DING [employer]IC [id number] 2021 00:00:00 Problems Condition Condition Condition Status Onset Resolution Last Treating Co mments Source Name Details Category Date Date Treatment Clinician Date [facility] Disease Active Univers line line 7-07 ity of clotted, clotted, 00:00: [place] initial initial 00 Medical encounter encounter Bran ch s/p s/p Disease Active [facility] Robotic Robotic 4-14 [facility] M[facility] (St. MVR (St. 00:00: Medica l [place] Epic [place] Epic 00 Cent er 33 mm) by 33 mm) by Dr. Jillian Walsh 03/02/22 03/02/22 Elevated Elevated Disease Active [facility] liver liver 4[facility]14 [facility] enzymes enzymes 00:[facility]: Medical 00 Center Acute Acute Disease Active [facility] liver liver 4-06 [facility] failure failure 00:00: Medical 00 Center Suicidal Suicidal Disease Active 2018-11 Metho di [...] and suicidal ideation. Tobacco Tobacco Problem Active [facility] abuse abuse HL7.CCDAR2 Physic i ans Anxiety Anxiety Problem Active [facility] and and HL7.CCDAR2 Physic i depression depression an s H/O H/O Disease Active Overview: Method i [...] December 2016.Has also quit smoking since 03/2017. 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 HF (heart HF (heart Medi rosalba failure) failure) Center Metabolic Metabolic Disease Active [facility] acidosis acidosis [facility] Hypovolemi Hypovolemi Disease Active C HI St c shock c shock [facility] Vasogenic Vasogenic Disease Active [facility] shock shock [facility] Acute Acute Disease Active [facility] bacterial bacterial [place] [facility] endocardit endocardit Me dical is is Center No known No known Disease Unive rs active active ity of problems problems [facility] Screening Screening Problem Active [facility] for STD for STD HL7.CCDAR2 Phys ici (sexually (sexually ans transmitte transmitte d disease) d disease) Allergies, Adverse Reactions, Alerts Allergy Allergy Status Severity Reaction(s) Onset Inactive Treating Comm ents Source Name Type Date Date Clinician NO KNOWN Drug Active Univers ALLERGIE Class ity of S [facility] NO KNOWN Allergy Active [facility] ALLERGIE [facility] Family History Family Member Diagnosis Comments Start Date Stop Date Source Natural brother ADD / ADHD [facility] [place] [facility] Natural father Mental illness Method [facility] Natural father Other [facility] [place] [facility] Natural father No Known Problem [facility] Maternal Bipolar disorder [facility] Maternal Depression [facility] Maternal No Known Problems [facility] Natural mother Depression [facility] [place] [facility] Natural mother No Known Problem [facility] Paternal Hyperlipidemia [facility] Paternal Hypertension [facility] Paternal Other [facility] Paternal [facility] Family member Colon cancer [facility] [place] [facility] Family member Prostate cancer [facility] uncle Family history of [facility] Phys icians lung cancer Social History Social Habit Start Date Stop Date Quantity Comments Source History SDOH [facility] History of Current smoker University of tobacco use [facility] Exposure to 2022-05-17 2022-05-27 Not sure University SARS-CoV-2 00:00:00 17:42:00 [facility] (event) [place] Alcohol intake 2022-04-19 2022-04-19 Ex-drinker [facility] 00:[facility]00 00:00:00 (finding) [facility] Center Tobacco use and 2022-02-22 2022-02-[address] [facility] k[facility] exposure 00:00:00 00:00:00 Medical Center History SDOH 2022-02-22 2022-02-[address] [facility] Transport Med 00:00:00 00:00:[address] Tobacco Comment 2017-05-24 2017-05-24 restarted [facility] 00:00:00 00:00:00 05/22/2017 [facility] Alcohol Comment 2017-04-13 2017-04-13 social [facility] 00:00:00 00:00:00 [facility] Sex Assigned At [birth year] JOLEEN [place] 00:00:00 00:00:00 Medical Center Smoking Status Start Date Stop Date Source Ex-smoker 2022-05-27 00:00:00 2022-05-27 00:00:00 [facility] Current every day 2022-02-22 00:00:[address] [facility] smoker Center Unknown if ever smoked [facility] Medications Ordered Filled Start Stop Current Ordering Indication Dosage Frequency Signature Comments Components Source Medication Medication Date Date Medication? Clinician (SIG) Name Name spironolact Yes [id number] TAKE ONE Methodi one 8-15 (1) st (ALDACTONE) 00:00: TABLET(S) H ospita 25 MG 00 BY MOUTH l tablet ONCE A DAY. spironolact Yes [id number] TAKE ONE Methodi one 8-15 (1) st (ALDACTONE) 00:00: TABLET(S) H ospita 25 MG 00 BY MOUTH l tablet ONCE A DAY. sacubitriL- Yes .5{tbl} 0.5 Uni vers valsartan 7-10 tablet, ity of (ENTRESTO) 15:00: Oral, BID, [place] 24-26 mg 00 First dose Medic al tablet 0.5 on [facility] tablet 05/28/22 at 1000, Until Discontinu ed, Routine
meteorology faculty member approving Restricted medication : HUBERT MEJIA dapaglifloz Yes 10mg 10 mg, Univ ers in 7-10 Oral, ity of (FARXIGA) 15:00: DAILY, [place] tablet 10 00 First dose Medi rosalba mg on [facility] 05/28/22 at 1000, Until Discontinu ed, Routine
Is this a home medication ? Yes
Has this patient brought their own medication ? No
Randallr jabari will dispense the medication from inpatient. Pharmacy will dispense the medication from [facility].
[facility] not allowed unless the patient is maintained on this medication at home, and home supply is unavailabl e. Does this order meet the criteria for inpatient ordering? Yes metoprolol Yes 25mg 25 mg, Unive rs succinate 7-10 Oral, ity of XL (TOPROL 14:00: DAILY, [place] XL) tablet 00 First dose Med ical 25 mg on [facility] 05/28/22 at 0900, Until Discontinu ed, Routine MULTIVIT-WY Yes Take by Uni vers NERALS/FOLI 7-10 mouth. ity of C ACID 12:12: [place] (ADULT 58 Medical MULTIVITAMI [place] N GUMMIES ORAL) dicyclomine 2021- No 10mg Take 10 mg Univers (BENTYL) 10 7-10 07-10 by mouth 4 i ty of mg capsule 11:41: 00:00 (four) [place] 18 :00 times Medical daily. [place] apixaban Yes 5mg 5 mg, Univers (ELIQUIS) 7-10 Oral, BID, ity of tablet 5 mg 01:00: First dose [place] 00 on [facility] 05/27/22 at Branch 2000, Until Discontinu ed, Routine
Indicatio ns: Non-Valvul ar Atrial Fibrillati on magnesium 0 2021- No 2g 2 g, IV Univ ers sulfate in 05-27- Piggyback, it y of water 2 15:45: 16:43 Administer Hebert as gram/50 mL 00 :00 over 60 Medica l (4 %) Minutes, Branch infusion 2 ONCE, 1 g dose, On 05/27/22 at 1045, Routine spironolact Yes 25mg 25 mg, Univ ers one 05-27 Oral, ity of (ALDACTONE) 15:15: DAILY, [place] tablet 25 00 First dose Medi rosalba mg on Sat [place] 05/27/22 at 1015, Until Discontinu ed, Routine polyethylen Yes 17g 17 g, Unive rs e glycol 05-27 Oral, ity of 3350 powder 14:00: DAILY, [place] 17 g 00 First dose Medical on Sat [place] 05/27/22 at 0900, Until Discontinu ed, Routine sennosides Yes 8.6mg 8.6 mg, Uni vers (SENOKOT) 05-27 Oral, BID, ity of tablet 8.6 01:00: First dose [place] mg 00 on Fri Medical 05/26/22 at Branch 1999, Until Discontinu ed, Routine meropenem No 1000mg 1,000 mg, Univers (MERREM) 05-26 IV ity of 1,000 mg in 01:00: 14:03 Piggyback, [place] NaCl 0.9% 00 :15 Q12H ABX, Medic al (NS) 50 mL First dose [facility] MINI-BAG (after last modificati on) on Sandra 05/25/22 at 2000, Until Discontinu ed, Administer over 3 Hours, 50 mL
Rest ricted use approved by: MARCOS 8TH FLOOR<br&g t;Reason for Anti-Infec tive: Empiric Therapy for Suspected Infection< br>Empiric Therapy Site: Other
O ther site: cards
D uration of therapy: 7 days vancomycin 2021- No 15mg/kg 1,000 mg Univers (VANCOCIN) 05-25 (rounded ity of 1,000 mg in 21:00: 14:03 from 1,110 [place] NaCl 0.9% 00 :15 mg = 15 Medical (NS) 250 mL mg/kg ?74 [facility] VIAL-MATE kg), IV IV Piggyback, piggyback Q12H ABX, First dose on [place] 05/25/22 at 1600, Until Discontinu ed, Administer over 60 Minutes, 250 mL
Reas on for Anti-Infec tive: Documented Infection< br>Documen zach Infection Site: Other
O ther site: heart
D uration of Therapy: 14 days naloxone 2021- No .2mg/h 0.2 mg/hr U nivers (NARCAN) 2 05-25 (50 ity of mg in NaCl 20:15: 23:01 mL/hr), IV [place] 0.9% (NS) 00 :01 Infusion, Medic al 500 mL CONTINUOUS Branch infusion , Starting on Sandra 05/25/22 at 1515 naloxone 2021- No .3mg/h 0.3 mg/hr U nivers (NARCAN) 2 05-25 (75 ity of mg in NaCl 17:45: 20:10 mL/hr), IV [place] 0.9% (NS) 00 :15 Infusion, Medic al 500 mL CONTINUOUS Branch infusion , Starting on Sandra 05/25/22 at 1245 sulfur 2021- No [id number] 5mL 5 mL, Univ ers hexafluorid 05-25 Intravenou i ty of e microsphr 15:30: 15:30 s, ONCE, 1 [place] (LUMASON) 00 :00 dose, On Medica l injection 5 [place] 05/25/22 Br anch mL at 1030, Routine
meteorology faculty member approving Restricted medication : KARI LOTT HEPARIN 2021- No 4000U 4,000 Univers SODIUM 05-25 Units, IV ity of (PORCINE) 12:30: 13:31 Push, [place] 1,000 00 :00 ONCE, 1 Medical UNIT/ML dose, On Branch BOLUS ACS [place] 05/25/22 ORDER SET at 0730, BAN heparin 2021- No 3000U FOR Univers (1,000 05-25 REBOLUSING ity of unit/mL, 10 12:16: 15:04 , Starting [place] mL vial) 37 :33 on Sandra Medical for 05/25/22 at Branch Rebolusing 0716, Until 05/27/22 at 1004, Routine
Dosing based on aPPT testing parameters (refer to continuous heparin drip order).
heparin 2021-0 2021- No 12U/kg/ 12 Univer s 25,000 05-25 07-09 h Units/kg/h ity of Units/250 12:16: 15:04 r ?74 kg [place]bert as mL 32 :33 (8.88 Medical (Premixed mL/hr), IV Bran ch Bag) in Infusion, 0.45 % NS TITRATE, Parameters in Admin. Instr., Starting on Sandra 05/25/22 at 0716
CA UTION - If LMWH given in ER, AVOID bolus and start next dose/drip 12 hrs after ER dosage.&nb sp; M ust program rate using programmab le infusion pump.&nbsp ;&nbsp ;Check with the ordering provider first prior to any administra tion should the patient be on existing/a dditional anticoagul ant therapy. Rang e, Dosing and Testing: &nbs p;FOR [facility], [facility], AND [facility] ONLY &nbs p; - aPTT < 35: & nbsp;Bolus 5000 units, increase rate 300 units/hr&n bsp; - aPTT 35-44:&nbs p; Walker boo 3000 units, increase rate 200 units/hr&a mp;nbsp; - aPTT 45-54:&nbs p; In crease rate 100 units/hr&n bsp; - aPTT 55-85:&nbs p; NO CHANGE&nbs p; - aPTT 86-95:&nbs p; De crease rate 100 units/hr&n bsp; - aPTT 96-120:&nb sp; H old 30 minutes, decrease rate 150 units/hr&n bsp; - aPTT > 120: Hold 60 minutes, decrease rate 200 units/hr&n bsp; Check aPTT 6 hours after initiation , then Q6H after every change, aPTT Q12H once therapeuti c levels are reached.&a mp;nbsp;&n bsp; ____ &nbs p; [facility] ONLY - aPTT < 40: & amp;nbsp;B olus 5000 units, increase rate 300 units/hr&n bsp; - aPTT 40-49:&nbs p; Walker boo 3000 units, increase rate 200 units/hr&n bsp; - aPTT 50-59:&nbs p; In crease rate 100 units/hr&n bsp; - aPTT 60-85:&nbs p; NO CHANGE&nbs p; - aPTT 86-95:&nbs p; De crease rate 100 units/hr&n bsp; - aPTT 96-120:&nb sp; H old 30 minutes, decrease rate 150 units/hr&n bsp; - aPTT > 120: Hold 60 minutes, decrease rate 200 units/hr&n bsp; Check aPTT 6 hours after initiation , then Q6H after every change, aPTT Q12H once therapeuti c levels are reached.&n bsp; DO NOT ADJUST INITIAL BOLUS OR INITIAL INFUSION RATE.
KCL 2021-0 2021- No IV Univers (POTASSIUM 05-25 Infusion, ity of CHLORIDE) 10:45: 11:45 CONTINUOUS [place] 20 mEq, 00 :16 , Starting Medica l sodium on Sandra Branch bicarbonate 05/25/22 at 50 mEq in 0545, D5W 0.9% Until Sandra NaCl (NS) 05/25/22 at 1,000 mL IV 0645, Solution 1,000 mL, at 125 mL/hr sodium 2021- No 150meq 150 mEq, Univ ers bicarbonate 05-25 Slow IV ity of 8.4 % (1 08:30: 08:04 Push, [place] mEq/mL) 00 :00 ONCE, 1 Medical injection dose, On Branch 150 mEq [place] 05/25/22 at 0330, BAN naloxone 2021- No .4mg/h 0.4 mg/hr U nivers (NARCAN) 2 05-25 (100 ity of mg in NaCl 07:45: 17:38 mL/hr), IV [place] 0.9% (NS) 00 :44 Infusion, Medic al 500 mL CONTINUOUS Branch infusion , Starting on [place] 05/25/22 at 0245 vancomycin 2021- No 15mg/kg 1,000 mg Univers (VANCOCIN) 05-25 (rounded ity of 1,000 mg in 07:45: 12:08 from [place] NaCl 0.9% 00 :00 1,099.5 mg Medi rosalba (NS) 250 mL = 15 mg/kg Br anch VIAL-MATE ?73.3 kg), IV IV piggyback Piggyback, ONCE, 1 dose, On [place] 05/25/22 at 0245, Administer over 60 Minutes, 250 mL
Reas on for Anti-Infec tive: Empiric Therapy for Suspected Infection< br>Empiric Therapy Site: Blood
D uration of therapy: 72 hours NORepinephr 2021- No .05ug/k 0.05-0.5 Univers ine 4 mg in 05-25 g/min mcg/kg/min ity of 0.9% NaCl 07:42: 07:41 ?73.3 kg [place] as 250 mL 30 :30 (13.7438-1 Medical infusion 37.4375 Branch RTU mL/hr, rounded to 13.74-137. 44 mL/hr), IV Infusion, TITRATE, MAP Goal > or = 65 mmHg, Starting on [place] 05/25/22 at 0242, For 24 hours
I nitiate titration at 0.05 mcg/kg/min . &nb sp;Increas e every 30 seconds to 5 minutes as needed to reach and maintain goal blood pressure.& nbsp;&nbsp ;Maximum dose = 0.5 mcg/kg/min . &am p;nbsp;If goal not maintained at maximum allowed dose, contact prescriber . &nb sp;Adminis ter only one peripheral intravenou s vasopresso r at a time.
NaCl 0.9% 2021- No 1000mL at 999 Uni vers (NS) bolus 05-25 mL/hr, ity of infusion 06:45: 06:00 1,000 mL, [place] as 1,000 mL 00 :00 IV Medical Infusion, Branch ONCE, 1 dose, On [place] 05/25/22 at 0145, STAT ceFEPIme 2021- No 2g 2 g, IV Unive rs (MAXIPIME) 05-25 Piggyback, it y of 2 g in NaCl 06:45: 06:40 ONCE, 1 [place] 0.9% (NS) 00 :00 dose, On Medica l 100 mL Sandra 05/25/22 Branch MINI-BAG at 0145, Administer over 30 Minutes, 100 mL
Reas on for Anti-Infec tive: Empiric Therapy for Suspected Infection< br>Empiric Therapy Site: Blood
D uration of therapy: 72 hours naloxone 2021- No 1mg 1 mg, Slow Un deandre (NARCAN) 05-25 IV Push, ity of injection 1 06:45: 05:23 ONCE, 1 [place] mg 00 :00 dose, On Medical [place] 05/25/22 Branch at 0145, Routine NaCl 0.9% 2021- No 1000mL at 999 Uni vers (NS) bolus 05-25 mL/hr, ity of infusion 06:30: 07:15 1,000 mL, [place] as 1,000 mL 00 :00 IV Medical Infusion, Branch ONCE, 1 dose, On Sandra 05/25/22 at 0130, BAN aspirin Yes 81mg QD Take 81 mg Meth jabier (ECOTRIN) 6-[address] 81 MG 10:28: daily. Hospita enteric 18 l coated tablet aspirin Yes 81mg QD Take 81 mg Meth jabier (ECOTRIN) 6-[address] 81 MG 10:28: daily. Hospita enteric 18 l coated tablet levoFLOXaci 2021- No [id number] 500mg QD Take 1 Methodi n 05-[address] (Levaquin) 00:00: 04:59 (500 mg Hos tori 500 MG 00 :00 total) by l tablet mouth daily for 7 days. levoFLOXaci 2021- No [id number] 500mg QD Take 1 Methodi n 05-[address] (Levaquin) 00:00: 04:59 (500 mg Hos tori 500 MG 00 :00 total) by l tablet mouth daily for 7 days. apixaban 2021- No 2.5mg Q.5D Take 2.5 Met hodi (ELIQUIS) 04-[address] 2.5 mg 15:45: 00:00 mouth 2 Hospita tablet 08 :00 (two) l times a day. metoprolol No 25mg Q.5D Take 25 mg Methodi succinate 04-[address] XL 15:45: 00:00 (two) Hospita (TOPROL-XL) 08 :00 times a l 25 mg 24 hr day. tablet spironolact 2021- No 25mg QD Take 25 mg Methodi one 04-[address] (ALDACTONE) 15:45: 00:00 daily. Hos tori 25 MG 08 :00 l tablet gabapentin No 400mg Q.[id number] Take 400 Methodi (NEURONTIN) 04-[id number] 400 mg 15:45: 00:00 3D mouth 3 Hospita capsule 08 :00 (three) l times a day. 400mg Am, 400mg PM, 800mg at bedtime sacubitriL- 2021- No Q.5D Take by Me baez valsartan 04-[address] (Entresto) 15:45: 00:00 (two) Hospi ta 24-26 mg 08 :00 times a l tablet per day. tablet dapaglifloz 2021- No 10mg QD Take 10 mg Methodi in 04-[address] (Farxiga) 15:45: 00:00 daily. Hospi ta 10 mg 08 :00 l tablet apixaban 2021- No 2.5mg Q.5D Take 2.5 Met hodi (ELIQUIS) 04-[address] 2.5 mg 15:45: 00:00 mouth 2 Hospita tablet 08 :00 (two) l times a day. metoprolol 2021- No 25mg Q.5D Take 25 mg Methodi succinate 04-[address] XL 15:45: 00:00 (two) Hospita (TOPROL-XL) 08 :00 times a l 25 mg 24 hr day. tablet spironolact 2021- No 25mg QD Take 25 mg Methodi one 04-[address] (ALDACTONE) 15:45: 00:00 daily. Hos tori 25 MG 08 :00 l tablet gabapentin 2021- No 400mg Q.[id number] Take 400 Methodi (NEURONTIN) 04-[id number] 400 mg 15:45: 00:00 3D mouth 3 Hospita capsule 08 :00 (three) l times a day. 400mg Am, 400mg PM, 800mg at bedtime sacubitriL- 2021- No Q.5D Take by Me baez valsartan 04-[address] (Entresto) 15:45: 00:00 (two) Hospi ta 24-26 mg 08 :00 times a l tablet per day. tablet dapaglifloz 2021- No 10mg QD Take 10 mg Methodi in 04-[address] (Farxiga) 15:45: 00:00 daily. Hospi ta 10 mg 08 :00 l tablet dapaglifloz 2021- No 5mg QD Take 5 mg Methodi in 04-[address] (FARXIGA) 5 15:29: 00:00 daily. Hos tori mg tablet 07 :00 l dapaglifloz 2021-0 2021- No 5mg QD Take 5 mg Methodi in 6-01 06-[address] (FARXIGA) 5 15:29: 00:00 daily. Hos tori mg tablet 07 :00 l gabapentin 2022-0 Yes [id number] Take 400mg Methodi (NEURONTIN) 6-01 PO Am, st 400 mg 00:00: 400mg PM, Hospit a capsule 00 800mg at l bedtime. dapaglifloz 2022-0 Yes [id number] 10mg QD Take 1 Methodi in - tablet () 00:00: mg total) Hos tori 10 mg 00 by mouth l tablet daily. metoprolol 2022-0 Yes [id number] 25mg Q.5D Take 1 Methodi succinate 6-01 tablet (25 st XL 00:00: mg total) Hospita (TOPROL-XL) 00 by mouth 2 l 25 mg 24 hr (two) tablet times a day. sacubitriL- 2-0 Yes [id number] 1{tbl} Q.5D Take 1 Methodi valsartan - tablet by st ([facility]) 00:00: mouth 2 Hosp ronald 24-26 mg 00 (two) l tablet per times a tablet day. apixaban 2022-0 Yes [id number] 2.5mg Q.5D Take 1 Methodi (ELIQUIS) 04-[address] 2.5 mg 00:00: (2.5 mg Hospita tablet 00 total) by l mouth 2 (two) times a day. gabapentin 2022-0 Yes [id number] Take 400mg Methodi (NEURONTIN) 6- PO Am, st 400 mg 00:00: 400mg PM, Hospit a capsule 00 800mg at l bedtime. dapaglifloz 2022-0 Yes [id number] 10mg QD Take 1 Methodi in - tablet ( () 00:00: mg total) Hos tori 10 mg 00 by mouth l tablet daily. metoprolol 2022-0 Yes [id number] 25mg Q.5D Take 1 Methodi succinate 6-01 tablet (25 st XL 00:00: mg total) Hospita (TOPROL-XL) 00 by mouth 2 l 25 mg 24 hr (two) tablet times a day. sacubitriL- 2022-0 Yes [id number] 1{tbl} Q.5D Take 1 Methodi valsartan 6- tablet by st (Entresto) 00:00: mouth 2 Hosp ronald 24-26 mg 00 (two) l tablet per times a tablet day. apixaban Yes [id number] 2.5mg Q.5D Take 1 Methodi (ELIQUIS) 04-[address] 2.5 mg 00:00: (2.5 mg Hospita tablet 00 total) by l mouth 2 (two) times a day. spironolact 2021- No [id number] 25mg QD Take 1 Methodi one 04-19 08-15 tablet (25 st (ALDACTONE) 00:00: 00:00 mg total) Hospita 25 MG 00 :00 by mouth l tablet daily. spironolact 2021- No [id number] 25mg QD Take 1 Methodi one 04-19 08-15 tablet (25 st (ALDACTONE) 00:00: 00:00 mg total) Hospita 25 MG 00 :00 by mouth l tablet daily. aspirin 81 0 Yes 81mg Take 81 mg U nivers mg EC 5-13 by mouth. ity of tablet 00:00: [address] spironolact 0 Yes 25mg Take 25 mg Univers one 25 mg 5-13 by mouth. ity o f tablet 00:00: [address] aspirin 81 2021-0 3- No 81mg QD Take [address] MG EC 5-13 05-13 tablet (81 [facility] tablet 00:00: 23:59 mg total) Medic al 00 :00 by mouth Center daily. spironolact 2022- No 25mg QD Take [address] one 5-13 05-13 tablet (25 [facility] (ALDACTONE) 00:00: 23:59 mg total) Medical 25 MG 00 :00 by mouth Center tablet daily. aspirin 81 2021-0 3- No 81mg QD Take [address] MG EC 5-13 05-13 tablet (81 [facility] tablet 00:00: 23:59 mg total) Medic al 00 :00 by mouth Center daily. spironolact 2021-0 2022- No 25mg QD Take [address] one 5-13 05-13 tablet (25 [facility] (ALDACTONE) 00:00: 23:59 mg total) Medical 25 MG 00 :00 by mouth Center tablet daily. apixaban 2022-0 Yes 2.5mg Q.5D Take [address] (ELIQUIS) 5-12 tablet [facility] 2.5 mg Tab 00:00: (2.5 mg Medi rosalba tablet 00 total) by Center mouth 2 (two) times daily. sacubitriL- 2022-0 Yes .5{tbl} Q.5D Take 0.[address] valsartan 5-12 tablets by Luke s (Entresto) 00:00: mouth 2 Medi rosalba 24-26 mg 00 (two) Center Tab times daily. dapaglifloz 2022-0 Yes 10mg QD Take [address] in 5-12 tablet (10 [facility] (FARXIGA) 00:00: mg total) Med ical 10 mg 00 by mouth Center tablet daily. apixaban 2-0 Yes 2.5mg Take 2.5 Univ ers 2.5 mg 5-12 mg by ity of tablet 00:00: mouth. [place] 00 Medical Branch dapaglifloz 2-0 Yes 1{tbl} Take 1 Un deandre in 10 mg 5-12 tablet by ity of tablet 00:00: mouth [place] 00 daily. Medical Branch sacubitriL- 2-0 Yes .5{tbl} Take 0.5 Univers valsartan 5-12 tablets by ity of (ENTRESTO) 00:00: mouth 2 [place] 24-26 mg 00 (two) Medical tablet times Branch daily. metoprolol 2-0 Yes 25mg Take 25 mg U nivers succinate 5-12 by mouth. ity o f XL 25 mg 24 00:00: [place] hr tablet 00 Medical Branch apixaban 2-0 Yes 2.5mg Q.5D Take [address] (ELIQUIS) 5-12 tablet [facility] 2.5 mg Tab 00:00: (2.5 mg Medi rosalba tablet 00 total) by Center mouth 2 (two) times daily. sacubitriL- 2022-0 Yes .5{tbl} Q.5D Take 0.[address] valsartan 5-12 tablets by Luke s (Entresto) 00:00: mouth 2 Medi rosalba 24-26 mg 00 (two) Center Tab times daily. dapaglifloz Yes 10mg QD Take [address] in 5-12 tablet (10 [facility] (FARXIGA) 00:00: mg total) Med ical 10 mg 00 by mouth Center tablet daily. metoprolol 2021-0 2022- No 25mg Q.5D Take [address] [facility] succinate 5-12 05-12 tablet (25 [facility] [facility] (TOPROL-XL) 00:00: 23:59 mg total) Medical 25 MG 24 hr 00 :00 by mouth 2 Ce nter tablet (two) times daily. gabapentin 2021-0 2022- No 400mg Q.5D Take [address] [facility] (NEURONTIN) 5-12 05-12 capsule [facility] 400 MG 00:00: 23:59 (400 mg Medical capsule 00 :00 total) by Center mouth 2 (two) times daily. gabapentin 2021-0 2022- No 800mg QD Take [address] [facility] (NEURONTIN) 5-12 05-12 tablet [facility] 800 MG 00:00: 23:59 (800 mg Medical tablet 00 :00 total) by Center mouth nightly. metoprolol 2021-0 2022- No 25mg Q.5D Take [address] [facility] succinate 5-12 05-12 tablet (25 [place] [facility] (TOPROL-XL) 00:00: 23:59 mg total) Medical 25 MG 24 hr 00 :00 by mouth 2 Ce nter tablet (two) times daily. gabapentin 2021-0 2022- No 400mg Q.5D Take [address] [facility] (NEURONTIN) 5-12 05-12 capsule [facility] 400 MG 00:00: 23:59 (400 mg Medical capsule 00 :00 total) by Center mouth 2 (two) times daily. gabapentin 2021-2022- No 800mg QD Take [address] [facility] (NEURONTIN) 5-12 05-12 tablet [facility] 800 MG 00:00: 23:59 (800 mg Medical tablet 00 :00 total) by Center mouth nightly. gabapentin 2021-2021- No Take 400mg [facility] 400 mg 5-12 07-10 PO Am, ity of capsule 00:00: 00:00 400mg [place] 800mg at Medical bedtime. Branch benzocaine- Yes [id number] 1{lozen Take 1 Univers menthoL 8-19 ge} Lozenge by ity of (CEPACOL 00:00: mouth [place] SORE 00 every 4 Medical THROAT, (four) Branch JR,) hours as lozenge needed for Sore throat. benzocaine- 2021- No [id number] 1{lozen Take 1 Univers menthoL 07-07 07-10 ge} Lozenge by ity o f (CEPACOL 00:00: 00:00 mouth [place] SORE 00 :00 every 4 Medical THROAT, (four) Branch JR,) hours as lozenge needed for Sore throat. dicyclomine 2020-0 Yes 10mg Take 10 mg Univers (BENTYL) 10 8-11 by mouth 4 it y of mg capsule 23:11: (four) [place] 03 times Medical daily. Branch dicyclomine 2020-0 Yes 10mg Take 10 mg Univers (BENTYL) 10 8-11 by mouth 4 it y of mg capsule 23:11: (four) [place] 03 times Medical daily. [place] dicyclomine 2019-0 Yes 10mg Take 10 mg Univers (BENTYL) 10 8-11 by mouth 4 it y of mg capsule 23:11: (four) [place] 03 times Medical daily. [place] iohexol 2019- No 120mL 120 mL, Unive rs (OMNIPAQUE 06-29 Intravenou it y of 350 21:45: 21:45 s, ONCE, 1 [place] BULK-150 00 :00 dose, Tue Medica l mL) 06/29/20 at Branch injection 1645, 120 mL Routine NaCl 0.9% 2019- No 1000mL at 999 Uni vers (NS) bolus 06-29 mL/hr, ity of infusion 20:30: 23:08 1,000 mL, [place] as 1,000 mL 00 :00 IV Medical Infusion, [place] ONCE, 1 dose, 06/29/20 at 1530, BAN docusate 2018-11 Yes [id number] 100mg Take 1 U nivers (COLACE) 1-17 capsule by ity o f 100 mg 00:00: mouth [place] capsule 00 daily. [facility] docusate 2018-11 Yes [id number] 100mg Take 1 U nivers (COLACE) 1-17 capsule by ity o f 100 mg 00:00: mouth [place] capsule [address] [facility] 2018-11 Yes [id number] 100mg Take 1 U nivers (COLACE) 1-17 capsule by ity o f 100 mg 00:00: mouth [place] capsule [address] [facility] 2018-11- No [id number] 100mg Take 1 Univers (COLACE) 1-17 07-10 capsule by ity of 100 mg 00:00: 00:00 mouth [place] capsule 00 :00 daily. [facility] Branch Centrum Centrum Yes 1 QD TAKE 1 [facility] Oral Tablet Oral Tablet 5-23 TABLET Physici 00:00: DAILY. ans 00 Nicorette Nicorette Yes KELLY 1 CHEW 1 [facility] Starter Kit Starter Kit 5-23 HINCKS PIECE Physici 2 MG 2 MG 00:00: D.O. SLOWLY AND ans Mouth/Throa Mouth/Throa 00 INTERMITTE t Gum t Gum NTLY FOR 30 MINUTES. REPEAT EVERY 1-2 HOURS; MAXIMUM OF 24 PIECES/DAY MULTIVIT-WY Yes Take by Uni vers NERALS/FOLI 2-27 mouth. ity of C ACID 03:15: [place] (ADULT 19 [facility] N GUMMIES ORAL) MULTIVIT-WY Yes Take by Uni vers NERALS/FOLI 2-27 mouth. ity of C ACID 03:15: [place] [facility] GUMMIES ORAL) MULTIVIT-WY Yes Take by Uni vers NERALS/FOLI 2-27 mouth. ity of C ACID 03:15: [place] [facility]ULT [facility] [place] N GUMMIES ORAL) ABSORICA 40 Yes [id number] 40mg QD Take 40 mg Methodi mg capsule 6-[address] 00:00: daily. Hospita 00 l ABSORICA 40 2021- No [id number] 40mg QD Take 40 mg Methodi mg capsule 6-14 - by mouth st 00:00: 00:00 daily. Hospita 00 :00 l ABSORICA 40 2021- No [id number] 40mg QD Take 40 mg Methodi mg capsule 6-14 - by mouth [facility] 00:00: 00:00 daily. Hospita 00 :00 l Vitamin Vitamin Yes UT B-12 TABS B-12 TABS Physi ci ans Vitamin C Vitamin C Yes UT TABS TABS Physici ans Immunizations Ordered Immunization Filled Immunization Date Status Commen ts Source Name Name Tdap (Adacel) 2018-04-10 Completed [facility] 08:31:00 FLUZONE QUAD 2015-10-05 Completed [facility] 00:[facility]:00 [facility] FLUZONE QUAD 2015-10-05 Completed [facility] 00:00:00 Hospital FLUZONE QUAD 2015-10-05 Completed [facility] 00:[facility]:00 Hospital Meningococcal ACWY, 2015-07-09 Completed [facility] Unspecified 00:00:00 Hospital Meningococcal ACWY, 2015-07-09 Completed [facility] Unspecified 00:00:00 Hospital Meningococcal ACYW, 2015-07-09 Completed [facility] Unspecified 00:00:00 Hospital HPV, Unspecified 2013-03-31 Completed Methodis t 00:00:00 Hospital HPV, Unspecified 2013-03-31 Completed Methodis t 00:00:00 Hospital HPV, Unspecified 2013-03-31 Completed Methodis t 00:00:00 Hospital HPV, Unspecified 2012-10-24 Completed [facility] t 00:00:00 Hospital HPV, Unspecified 2012-10-24 Completed Methodis t 00:00:00 Hospital HPV, Unspecified 2012-10-24 Completed Methodis t 00:00:00 Hospital FLUZONE QUAD 2012-07-10 Completed [facility] 00:00:00 Hospital HPV, Unspecified 2012-07-10 Completed Methodis t 00:00:00 Hospital HPV, Unspecified 2012-07-10 Completed Methodis t 00:00:00 Hospital FLUZONE QUAD 2012-07-10 Completed [facility] 00:00:00 Hospital HPV, Unspecified 2012-07-10 Completed Methodis t 00:00:00 Hospital FLUZONE QUAD 2012-07-10 Completed [facility] 00:00:00 Hospital FLUZONE QUAD 2012-01-09 Completed [facility] 00:00:00 Hospital FLUZONE QUAD 2012-01-09 Completed [facility] 00:00:00 Hospital FLUZONE QUAD 2012-01-09 Completed [facility] 00:00:00 Hospital Meningococcal ACWY, 2011-06-22 Completed [facility] Unspecified 00:00:00 Hospital Tdap 2011-06-22 Completed [facility] 00:00:00 Hospital Hep A, Unspecified 2011-06-22 Completed Method ist 00:00:00 Hospital Hep A, Unspecified 2011-06-22 Completed Method ist 00:00:00 Hospital Meningococcal ACWY, 2011-06-22 Completed [facility] Unspecified 00:00:00 Hospital Tdap 2011-06-22 Completed [facility] 00:00:00 Hospital Hep A, Unspecified 2011-06-22 Completed Method ist 00:00:00 Hospital Meningococcal ACYW, 2011-06-22 Completed [facility] Unspecified 00:00:00 Hospital Tdap 2011-06-22 Completed [facility] 00:00:00 Hospital IPV 2003-04-08 Completed [facility] 00:00:00 Hospital MMR 2003-04-08 Completed [facility] 00:00:00 Hospital DTaP, Unspecified 2003-04-[address] 00:00:00 Hospital DTaP, Unspecified 2003-04-[address] 00:00:00 Hospital IPV 2003-04-08 Completed [facility] 00:00:00 Hospital MMR 2003-04-08 Completed [facility] 00:00:00 Hospital DTaP, Unspecified 2003-04-[address] 00:00:00 Hospital IPV 2003-04-08 Completed [facility] 00:00:00 Hospital MMR 2003-04-08 Completed [facility] 00:00:00 Hospital Hep A, Unspecified 2001-12-10 Completed Method ist 00:00:00 Hospital Hep A, Unspecified 2001-12-10 Completed Method ist 00:00:00 Hospital Hep A, Unspecified 2001-12-10 Completed Method ist 00:00:00 Hospital IPV 2000-03-28 Completed [facility] 00:00:00 Hospital MMR 2000-03-28 Completed [facility] 00:00:00 Hospital Varicella 2000-03-28 Completed [facility] 00:00:00 Hospital DTaP, Unspecified 2000-03-[address] 00:00:00 Hospital Hep B, Unspecified 2000-03-28 Completed Method ist 00:00:00 Hospital Hib (PRP-T) 2000-03-28 Completed [facility] 00:00:00 Hospital DTaP, Unspecified 2000-03-[address] 00[facility]00:00 Hospital Hep B, Unspecified 2000-03-28 Completed Method ist 00:00:00 Hospital Hib (PRP-T) 2000-03-28 Completed [facility] 00:00:00 Hospital IPV 2000-03-28 Completed [facility] 00:00:00 Hospital MMR 2000-03-28 Completed [facility] 00:00:00 Hospital Varicella 2000-03-28 Completed [facility] 00:00:00 Hospital DTaP, Unspecified 2000-03-[address] 00:00:00 Hospital Hep B, Unspecified 2000-03-28 Completed Method ist 00:00:00 Hospital Hib (PRP-T) 2000-03-28 Completed [facility] 00:00:00 Hospital IPV 2000-03-28 Completed [facility] 00:00:00 Hospital MMR 2000-03-28 Completed [facility] 00:00:00 Hospital Varicella 2000-03-28 Completed [facility] 00:00:00 Hospital IPV 1999 Completed [facility] 00[facility]00:00 Hospital DTaP, Unspecified [address] 00:00:00 Hospital Hib (PRP-T) 1999 Completed [facility] 00:00:00 Hospital DTaP, Unspecified [address] 00:00:00 Hospital Hib (PRP-T) 1999 Completed [facility] 00:00:00 Hospital IPV 1999 Completed [facility] 00:00:00 Hospital DTaP, Unspecified [address] 00:00:00 Hospital Hib (PRP-T) 1999 Completed [facility] 00:00:00 Hospital IPV 1999 Completed [facility] 00:00:00 Hospital IPV 1999 Completed [facility] 00:00:00 Hospital DTP / HiB 1999 Completed [facility] 00:00:00 Hospital DTP / HiB 1999 Completed [facility] 00:00:00 Hospital IPV 1999 Completed [facility] 00:00:00 Hospital DTP / HiB 1999 Completed [facility] 00:00:00 Hospital IPV 1999 Completed [facility] 00:00:00 Hospital Hep B, Unspecified 1999 Completed Method ist 00:00:00 Hospital Hep B, Unspecified 1999 Completed Method ist 00:00:00 Hospital Hep B, Unspecified 1999 Completed Method ist 00:00:00 Hospital Hep B, Unspecified 1999 Completed Method ist 00:00:00 Hospital Hep B, Unspecified 1999 Completed Method ist 00:00:00 [facility] Hep B, Unspecified 1999 Completed Method ist 00:00:00 Hospital Vital Signs Vital Name Observation Time Observation Value Comments Source Systolic blood 2022-05-28 109 mm[Hg] [facility] pressure 12:45:00 [facility] Diastolic blood 2022-05-28 63 mm[Hg] [facility] pressure 12:45:00 [facility] Heart rate 2022-05-28 70 /min [facility] 12:45:00 [facility] Body temperature 2022-05-28 36.78 Le [facility] 12:45:00 [facility] Respiratory rate 2022-05-28 20 /min [facility] 12:45:00 [facility] Oxygen saturation 2022-05-28 99 /min [facility] Arterial blood 12:45:00 [facility] by Pulse oximetry [place] Body height 2022-05-27 185.4 cm [facility] 22:43:00 [facility] Body weight 2022-05-27 68.04 kg [facility] 22:43:00 [facility] BMI 2022-05-27 19.79 kg/m2 [facility] 22:43:00 [facility] HEIGHT 2022-04-19 182.9 cm 12:52:00 WEIGHT 2022-04-19 65.772 kg 12:52:00 HEIGHT 2022-04-19 182.9 cm 12:52:00 WEIGHT 2022-04-19 65.772 kg 12:52:00 HEIGHT 2022-04-19 182.9 cm 12:52:00 WEIGHT 2022-04-19 65.772 kg 12:52:00 WEIGHT 2022-03-30 61.78 kg 06:00:00 WEIGHT 2022-03-29 61.735 kg 09:00:00 WEIGHT 2022-03-28 62.188 kg 09:30:00 WEIGHT 2022-03-27 61.326 kg 06:12:00 WEIGHT 2022-03-25 59.33 kg 04:56:00 WEIGHT 2022-03-24 60.011 kg 05:12:00 WEIGHT 2022-03-23 59.648 kg 04:42:00 WEIGHT 2022-03-22 58.996 kg 09:02:00 WEIGHT 2022-03-21 59.648 kg 05:45:00 WEIGHT 2022-03-20 59.557 kg 09:15:00 WEIGHT 2022-03-17 59.557 kg 09:00:00 WEIGHT 2022-03-16 59.421 kg 08:28:00 WEIGHT 2022-03-15 58.106 kg 08:00:00 WEIGHT 2022-03-14 58.015 kg 08:56:00 WEIGHT 2022-03-13 56.518 kg 08:00:00 WEIGHT 2022-03-12 57.743 kg 07:00:00 WEIGHT 2022-03-11 60.374 kg 06:00:00 WEIGHT 2022-03-10 60.737 kg 09:15:00 WEIGHT 2022-03-09 62.007 kg 08:00:00 WEIGHT 2022-03-05 78.5 kg 04:00:00 WEIGHT 2022-03-04 78.5 kg 04:00:00 HEIGHT 2022-03-02 185.4 cm 13:30:00 WEIGHT 2022-03-02 84 kg 13:30:00 WEIGHT 2022-03-02 84 kg 05:51:00 WEIGHT 2022-02-27 65.318 kg 05:43:00 HEIGHT 2022-02-22 185.4 cm 12:00:00 WEIGHT 2022-02-22 67.5 kg 03:00:00 WEIGHT 2022-03-30 61.78 kg 06:00:00 WEIGHT 2022-03-29 61.735 kg 09:00:00 WEIGHT 2022-03-28 62.188 kg 09:30:00 WEIGHT 2022-03-27 61.326 kg 06:12:00 WEIGHT 2022-03-25 59.33 kg 04:56:00 WEIGHT 2022-03-24 60.011 kg 05:12:00 WEIGHT 2022-03-23 59.648 kg 04:42:00 WEIGHT 2022-03-22 58.996 kg 09:02:00 WEIGHT 2022-03-21 59.648 kg 05:45:00 WEIGHT 2022-03-20 59.557 kg 09:15:00 WEIGHT 2022-03-17 59.557 kg 09:00:00 WEIGHT 2022-03-16 59.421 kg 08:28:00 WEIGHT 2022-03-15 58.106 kg 08:00:00 WEIGHT 2022-03-14 58.015 kg 08:56:00 WEIGHT 2022-03-13 56.518 kg 08:00:00 WEIGHT 2022-03-12 57.743 kg 07:00:00 WEIGHT 2022-03-11 60.374 kg 06:00:00 WEIGHT 2022-03-10 60.737 kg 09:15:00 WEIGHT 2022-03-09 62.007 kg 08:00:00 WEIGHT 2022-03-05 78.5 kg 04:00:00 WEIGHT 2022-03-04 78.5 kg 04:00:00 HEIGHT 2022-03-02 185.4 cm 13:30:00 WEIGHT 2022-03-02 84 kg 13:30:00 WEIGHT 2022-03-02 84 kg 05:51:00 WEIGHT 2022-02-27 65.318 kg 05:43:00 HEIGHT 2022-02-22 185.4 cm 12:00:00 WEIGHT 2022-02-22 67.5 kg 03:00:00 WEIGHT 2022-03-30 61.78 kg 06:00:00 WEIGHT 2022-03-29 61.735 kg 09:00:00 WEIGHT 2022-03-28 62.188 kg 09:30:00 WEIGHT 2022-03-27 61.326 kg 06:12:00 WEIGHT 2022-03-25 59.33 kg 04:56:00 WEIGHT 2022-03-24 60.011 kg 05:12:00 WEIGHT 2022-03-23 59.648 kg 04:42:00 WEIGHT 2022-03-22 58.996 kg 09:02:00 WEIGHT 2022-03-21 59.648 kg 05:45:00 WEIGHT 2022-03-20 59.557 kg 09:15:00 WEIGHT 2022-03-17 59.557 kg 09:00:00 WEIGHT 2022-03-16 59.421 kg 08:28:00 WEIGHT 2022-03-15 58.106 kg 08:00:00 WEIGHT 2022-03-14 58.015 kg 08:56:00 WEIGHT 2022-03-13 56.518 kg 08:00:00 WEIGHT 2022-03-12 57.743 kg 07:00:00 WEIGHT 2022-03-11 60.374 kg 06:00:00 WEIGHT 2022-03-10 60.737 kg 09:15:00 WEIGHT 2022-03-09 62.007 kg 08:00:00 WEIGHT 2022-03-05 78.5 kg 04:00:00 WEIGHT 2022-03-04 78.5 kg 04:00:00 HEIGHT 2022-03-02 185.4 cm 13:30:00 WEIGHT 2022-03-02 84 kg 13:30:00 WEIGHT 2022-03-02 84 kg 05:51:00 WEIGHT 2022-02-27 65.318 kg 05:43:00 HEIGHT 2022-02-22 185.4 cm 12:00:00 WEIGHT 2022-02-22 67.5 kg 03:00:00 Systolic blood 2021-07-07 131 mm[Hg] University of pressure 19:29:00 [facility] Diastolic blood 2021-07-07 74 mm[Hg] University o f pressure 19:29:00 [facility] Heart rate 2021-07-07 96 /min University of 19:29:00 [facility] Body temperature 2021-07-07 37.44 Le University of 19:29:00 [facility] Respiratory rate 2021-07-07 14 /min University of 19:29:00 [facility] Body weight 2021-07-07 76.658 kg University of 19:29:00 [facility] BMI 2021-07-07 22.30 kg/m2 University of 19:29:00 [facility] Oxygen saturation 2021-07-07 100 /min [facility] in Arterial blood 19:29:00 [facility] by Pulse oximetry Branch Systolic blood 2020-06-29 119 mm[Hg] University of pressure 23:00:00 [facility] Diastolic blood 2020-06-29 76 mm[Hg] University o f pressure 23:00:00 [facility] Heart rate 2020-06-29 52 /min University of 23:00:00 [facility] Body temperature 2020-06-29 37.39 Le University of 22:54:00 [facility] Respiratory rate 2020-06-29 14 /min University of 22:54:00 [facility] Oxygen saturation 2020-06-29 100 /min [facility] in Arterial blood 22:54:00 [facility] by Pulse oximetry Branch Body height 2020-06-29 185.4 cm University of 20:18:00 [facility] Body weight 2020-06-29 74.844 kg University of 20:18:00 [facility] BMI 2020-06-29 21.77 kg/m2 University of 20:18:00 [facility] Systolic blood 2020-06-29 119 mm[Hg] University of pressure 23:00:00 [facility] Diastolic blood 2020-06-29 76 mm[Hg] University o f pressure 23:00:00 [facility] Heart rate 2020-06-29 52 /min University of 23:00:00 [facility] Body temperature 2020-06-29 37.39 Le [facility] 22:54:00 [facility] Respiratory rate 2020-06-29 14 /min University 22:54:00 [facility] Oxygen saturation 2020-06-29 100 /min [facility] in Arterial blood 22:54:00 [facility] by Pulse oximetry [place] Body height 2020-06-29 185.4 cm University 20:18:00 [facility] Body weight 2020-06-29 74.844 kg University 20:18:00 [facility] BMI 2020-06-29 21.77 kg/m2 University of 20:18:00 [facility] Body height 2022-05-24 185.4 cm [facility] 19:05:00 [facility] Systolic blood 2022-05-15 112 mm[Hg] [facility] pressure 15:28:00 [facility] Diastolic blood 2022-05-15 68 mm[Hg] [facility] pressure 15:28:00 [facility] Heart rate 2022-05-15 63 /min [facility] 15:28:00 [facility] Body weight 2022-05-15 68.04 kg [facility] 15:28:00 [facility] BMI 2022-05-15 19.79 kg/m2 [facility] 15:28:00 [facility] Oxygen saturation 2022-05-15 99 /min [facility] in Arterial blood 15:28:00 [facility] by Pulse oximetry Body temperature 2022-04-19 36.72 Le [facility] 19:48:00 Hospital Systolic blood 2022-04-19 106 mm[Hg] [facility] pressure 12:52:00 [facility] Diastolic blood 2022-04-19 59 mm[Hg] [facility] pressure 12:52:00 [facility] Heart rate 2022-04-19 87 /min [facility] 12:52:00 [facility] Respiratory rate 2022-04-19 16 /min [facility] 12:52[facility]00 [facility] Center Body height 2022-04-19 182.9 cm [facility] 12:52:00 Medical Center Body weight 2022-04-[address] [facility] 12:52:00 [facility] BMI 2022-04-19 19.67 kg/m2 [facility] 12:52:00 [facility] Oxygen saturation 2022-04-19 100 /min [facility] in Arterial blood 12:52:00 Medical Ce nter by Pulse oximetry Respiratory rate 2022-04-13 20 /min [facility] 22:15:00 Hospital Body temperature 2022-03-[address] [facility] 12:[facility] Medical Center BP Systolic 2018-04-10 115 mm[Hg] Location: LUE; [facility] 08:10:00 Position: Sitting BP Diastolic 2018-04-10 74 mm[Hg] Location: E; [facility] 08:10:00 Position: Sitting Height 2018-04-10 72 [in_us] [facility] 08:10:00 Weight 2018-04-10 158 [lb_av] [facility] 08:10:00 Body Mass Index 2018-04-10 21.43 kg/m2 [facility] Calculated 08:10:00 Temperature 2018-04-10 97.3 [degF] Method: [facility] 08:10:00 Tympanic Heart Rate 2018-04-10 48 /min [facility] 08:10:00 Procedures Procedure Date / Time Performing Source Performed Clinician CBC WITHOUT DIFF 2022-05-27 09:28:00 Shankar Gillis [facility] [place] [facility] MAGNESIUM 2022-05-27 09:27:00 Shankar Gillis [place] [facility] BASIC METABOLIC PANEL (NA, 2022-05-27 09:27:00 Shankar Gillis [facility] K, CL, CO2, GLUCOSE, BUN, Medica l Branch CREATININE, CA) ACTIVATED PARTIAL THRMPLAS 2022-05-27 09:27:00 Tyson Albarado [facility] ACTIVATED PARTIAL THRMPLAS 2022-05-27 01:52:00 Tyson Albarado [facility] ACTIVATED PARTIAL THRMPLAS 2022-05-26 12:30:00 Tyson Albarado [facility] MAGNESIUM 2022-05-26 06:52:00 [facility] BASIC METABOLIC PANEL (NA, 2022-05-26 06:52:00 Denny Bermudez [facility] K, CL, CO2, GLUCOSE, BUN, Medica l Branch CREATININE, CA) CBC WITH DIFF 2022-05-26 06:52:00 [facility] ACTIVATED PARTIAL THRMPLAS 2022-05-26 06:52:00 Tyson Albarado [facility] ACTIVATED PARTIAL THRMPLAS 2022-05-25 18:10:00 Tyson Albarado [facility] TROPONIN I 2022-05-25 16:40:00 Brett [facility] TRANSTHORACIC ECHO (TTE) 2022-05-25 13:10:00 Valentin [facility] W/ CONTRAST Medical [facility] XR CHEST 1 2022-05-25 11:48:00 Brett [facility] AC PANEL 21 + LACTIC ACID 2022-05-25 11:21:00 Valentin [facility] MRSA / MSSA SCREEN BY PCR, 2022-05-25 11:21:00 Valentin [facility] LACTATE DEHYDROGENASE 2022-05-25 11:20:00 Valentin [facility] TROPONIN I 2022-05-25 11:20:00 Brett lydia [facility] PROTHROMBIN TIME / INR 2022-05-25 11:20:00 Valentin [facility] ACTIVATED PARTIAL THRMPLAS 2022-05-25 11:20:00 Valentin [facility] VA INSERT NON-TUNNEL CV CATH 2022-05-25 08:00:12 Luis Alberto Fonseca [facility] XR CHEST 1 VW 2022-05-25 07:55:56 Luis Alberto Fonseca [facility] ACUTE CARE VENOUS BLOOD GAS 2022-05-25 07:05:00 Luis Alberto Fonseca [facility] AC PANEL 20 + LACTIC ACID 2022-05-25 06:12:00 [facility] VW 2022-05-25 05:58:29 Luis Alberto Fonseca [facility] CT CERVICAL SPINE WO 2022-05-25 05:52:43 Luis Alberto Fonseca [facility] CONTRAST [facility] CT HEAD WO CONTRAST 2022-05-25 05:52:43 Luis Alber[facility] BLOOD CULTURE SCREEN 2022-05-25 05:43:00 Luis Alberto Fonseca [facility] CREATINE KINASE 2022-05-25 05:43:00 Luis Alberto Fonseca [facility] LIPASE 2022-05-25 05:43:00 Luis Alberto Fonseca [facility] MAGNESIUM 2022-05-25 05:43:00 Luis Alberto Fonseca [facility] TROPONIN I 2022-05-25 05:43:00 Luis Alberto Fonseca [facility] FREE T4 2022-05-25 05:43:00 Luis Alberto Fonseca [facility] THYROID STIMULATING HORMONE 2022-05-25 05:43:00 Luis Alberto Fonseca [facility] COMP. METABOLIC PANEL 2022-05-25 05:43:00 Luis Alberto Fonseca [facility] ([id number]) [facility] SALICYLATE 2022-05-25 05:43:00 Luis Alberto Fonseca [facility] ETHANOL 2022-05-25 05:43:00 Luis Alberto Fonseca [facility] CBC WITH DIFF 2022-05-25 05:43:00 Luis Alberto Fonseca [facility] PROTHROMBIN TIME / INR 2022-05-25 05:43:00 Luis Alberto Fonseca [facility] ACTIVATED PARTIAL THRMPLAS 2022-05-25 05:43:00 [facility] URINALYSIS 2022-05-25 05:43:00 Luis Alberto Fonseca [facility] URINE CULTURE 2022-05-25 05:43:00 Luis Alberto Fonseca [facility] N-TERMINAL PRO-BNP 2022-05-25 05:43:00 Luis Alberto Fonseca [facility] COVID-19 (ID NOW RAPID 2022-05-25 05:43:00 Luis Alberto Fonseca [facility] TESTING) Medical Branch LAB ONLY COVID 2022-05-25 05:43:00 Luis Alberto Fonseca o f [place] INTERPRETATION Medical Branch URINE DRUG (IMMUNOASSAY) - 2022-05-25 05:43:00 Luis Alberto Fonseca [facility] COMPREHENSIVE DRUG SCREEN Medica l Branch W/O REFLEX HB ECG ROUTINE & RHYTHM 2022-05-25 05:34:19 Luis Alberto Fonseca [facility] STRIP Medical Branch ECG 12-LEAD 2022-05-15 15:40:44 Yarelis Agarwal Ho spital XR CHEST 2 VW 2022-05-05 20:56:18 Purnima Saha Ho spital XR CHEST 1 VW PORTABLE 2022-04-13 20:16:40 Aj Sampson [facility] CBC WITH PLATELET AND 2022-04-13 19:51:00 Aj Sampson [facility] DIFFERENTIAL COMPREHENSIVE METABOLIC 2022-04-13 19:51:00 Aj Sampson [facility] PANEL ESTIMATED GFR 2022-04-13 19:51:00 Aj Sampson Ho spital MANUAL DIFFERENTIAL 2022-04-13 19:51:00 Aj Sampson [facility] ECG ED PRELIMINARY 2022-04-13 19:43:09 Aj Sampson [facility] INTERPRETATION ECG 12-LEAD 2022-04-13 19:23:41 Aj Sampson [facility] MAGNESIUM 2022-03-30 05:08:00 [facility] CBC (HEMOGRAM ONLY) 2022-03-30 05:08:00 [facility]alam, [facility] BASIC METABOLIC PANEL (7) 2022-03-30 05:08:00 Nalam, [facility] CBC (HEMOGRAM ONLY) 2022-03-28 06:20:00 [facility]alam, [facility] BASIC METABOLIC PANEL (7) 2022-03-28 06:20:00 Nalam, [facility] MAGNESIUM 2022-03-28 06:20:00 Nalam, [facility] CBC (HEMOGRAM ONLY) 2022-03-26 04:58:00 [facility], [facility] BASIC METABOLIC PANEL (7) 2022-03-26 04:58:00 Nal, [facility] MAGNESIUM 2022-03-26 04:58:00 [facility] 2D ECHO W/ DOPPLER 2022-03-24 11:55:24 Sim Joe [facility] (CW/PW/COLOR) [facility] CBC (HEMOGRAM ONLY) 2022-03-24 05:08:00 [facility] BASIC METABOLIC PANEL (7) 2022-03-24 05:08:00 [facility] MAGNESIUM 2022-03-24 05:08:00 [facility] SARS-COV2/RT-PCR (HS & REF 2022-03-22 12:43:00 [facility] Remedios kumar [facility] CBC (HEMOGRAM ONLY) 2022-03-22 04:14:00 [facility] BASIC METABOLIC PANEL (7) 2022-03-22 04:14:00 [facility] MAGNESIUM 2022-03-22 04:14:00 [facility] BASIC METABOLIC PANEL (7) 2022-03-20 04:52:00 [facility] MAG[facility]UM 2022-03-20 04:52:00 [facility] CBC (HEMOGRAM ONLY) 2022-03-20 04:52:00 [facility] HEPATIC FUNCTION PANEL 2022-03-19 17:59:00 Rodolfo Delaney [facility] BASIC METABOLIC PANEL (7) 2022-03-19 05:14:00 [facility] MAGNESIUM 2022-03-19 05:14:00 Nalam, [facility] BASIC METABOLIC PANEL (7) 2022-03-18 05:46:00 Nalam, [facility] MAGNESIUM 2022-03-18 05:46:00 Nalam, [facility] CBC (HEMOGRAM ONLY) 2022-03-18 05:46:00 Nalam, [facility] BASIC METABOLIC PANEL (7) 2022-03-17 08:03:00 Nalam, Denisse [facility] MAGNESIUM 2022-03-17 08:03:00 Nalam, [facility] BASIC METABOLIC PANEL (7) 2022-03-16 12:50:00 Nalam, [facility] MAGNESIUM 2022-03-16 12:50:00 Nalam, [facility] CBC (HEMOGRAM ONLY) 2022-03-16 08:17:00 Nalam, [facility] SARS-COV2/RT-PCR (SLHS & REF 2022-03-15 16:26:00 [facility] Remedios kumar [facility] BASIC METABOLIC PANEL (7) 2022-03-15 05:11:00 Nalam, [facility] MAGNESIUM 2022-03-15 05:11:00 [facility]ABOLIC PANEL (7) 2022-03-14 06:54:00 Nalam, [facility] MAGNESIUM 2022-03-14 06:54:00 Nalam, [facility] CBC (HEMOGRAM ONLY) 2022-03-14 06:54:00 [facility] XR ANKLE 3 VIEWS LEFT 2022-03-13 18:30:[address] [facility] LIMITED 2D ECHOCARDIOGRAM 2022-03-13 08:29:35 Rick Giles [facility] BASIC METABOLIC PANEL (7) 2022-03-13 07:54:00 Nalam [facility] MAGNESIUM 2022-03-13 07:54:00 Nalam, [facility] XR CHEST 1 VIEW PORTABLE / 2022-03-12 04:21:00 [facility]pson [facility] BASIC METABOLIC PANEL (7) 2022-03-12 04:13:00 Nalam, [facility] MAGNESIUM 2022-03-12 04:13:00 Nalam, [facility] CBC (HEMOGRAM ONLY) 2022-03-12 04:13:00 Tere [facility] BASIC METABOLIC PANEL (7) 2022-03-11 11:32:00 Nalam [facility] MAGNESIUM 2022-03-11 11:32:00 [facility] CHEST 1 VIEW PORTABLE / 2022-03-11 04:44:00 [facility]án [facility] CHEST 1 VIEW PORTABLE / 2022-03-10 05:47:00 Adrián [facility] BASIC METABOLIC PANEL (7) 2022-03-10 05:39:[address] [facility] CBC W/PLT COUNT & AUTO 2022-03-10 05:39:00 Adrián [facility] MAGNESIUM 2022-03-10 05:39:00 Adrián [facility] HEPATIC FUNCTION PANEL 2022-03-10 05:39:00 Nalam [facility] CBC W/PLT COUNT & AUTO 2022-03-10 05:39:00 Adrián [facility] BASIC METABOLIC PANEL (7) 2022-03-09 05:02:00 Sampson, [facility] CBC W/PLT COUNT & AUTO 2022-03-09 05:02:00 Veronica Sampson [facility] MAGNESIUM 2022-03-09 05:02:00 [facility] CBC W/PLT COUNT & AUTO 2022-03-09 05:02:00 Veronica Sampson [facility] XR CHEST 1 VIEW PORTABLE / 2022-03-09 04:40:00 SampsonDheeraj [facility]Texas [facility] SARS-COV2/RT-PCR ([facility] & REF 2022-03-08 16:55:00 Denisse Winchester [facility] XR CHEST 1 VIEW PORTABLE / 2022-03-08 05:15:00 SampsonVeronica anne [facility] BASIC METABOLIC PANEL (7) 2022-03-08 04:55:00 Adrián [facility] CBC W/PLT COUNT & AUTO 2022-03-08 04:55:00 Sampson, [facility] MAGNESIUM 2022-03-08 04:55:00 Sampson, [facility] CBC W/PLT COUNT & AUTO 2022-03-08 04:55:00 SampsonQuincy anneSt. [facility] BASIC METABOLIC PANEL (7) 2022-03-07 05:28:00 Sampson [facility] MAGNESIUM 2022-03-07 05:28:00 Sampson, [facility] HEPATIC FUNCTION PANEL 2022-03-07 05:28:[address] [facility] CBC W/PLT COUNT & AUTO 2022-03-07 05:27:00 SampsonQuincy anneSt[facility] CBC W/PLT COUNT & AUTO 2022-03-07 05:27:00 Sampson [facility] XR CHEST 1 VIEW PORTABLE / 2022-03-07 03:58:00 Sampson, [facility] XR CHEST 1 VIEW PORTABLE / 2022-03-06 11:03:00 Denisse W[facility] VANCOMYCIN LEVEL, TROUGH 2022-03-06 08:28:00 Cholo Bustamante [facility] XR CHEST 1 VIEW PORTABLE / 2022-03-06 06:37:00 Sampson [facility] BASIC METABOLIC PANEL (7) 2022-03-06 05:45:00 Sampson, [facility] CBC W/PLT COUNT & AUTO 2022-03-06 05:45:00 Adrián [facility] MAGNESIUM 2022-03-06 05:45:00 Adrián [facility] CBC W/PLT COUNT & AUTO 2022-03-06 05:45:00 Sampson, [facility] HC ARTERIAL DOPPLER ARM UNI 2022-03-05 22:00:00 Michoacano Wilson [facility] 2D ECHO W/ DOPPLER 2022-03-05 11:42:39 Laci Maldonado [facility] (CW/PW/COLOR) [facility] BLOOD GAS, ARTERIAL 2022-03-05 03:50:[address] [facility] CALCIUM, IONIZED 2022-03-05 03:50:00 Naveen Parish [facility] BASIC METABOLIC PANEL (7) 2022-03-05 03:50:00 Sampson, [facility] CBC W/PLT COUNT & AUTO 2022-03-05 03:50:00 Adrián [facility] MAGNESIUM 2022-03-05 03:50:00 Sampson, [facility] PHOSPHORUS 2022-03-05 03:50:00 Sampson [facility] PROTHROMBIN TIME/INR 2022-03-05 03:50:00 Sampson, [facility] APTT 2022-03-05 03:50:00 Adrián [facility] HEPATIC FUNCTION PANEL 2022-03-05 03:50:00 Basil [facility] CBC W/PLT COUNT & AUTO 2022-03-05 03:50:00 Sampson [facility] DIFFERENTIAL [facility] XR CHEST 1 VIEW PORTABLE / 2022-03-05 02:01:00 Adrián [facility] BEDSIDE [facility] PREPARE LEUKO-REDUCED RBC 2022-03-04 23:55:00 Minerva Yost [facility] PREPARE LEUKO-REDUCED RBC 2022-03-04 23:54:00 Naveen Parish [facility] ECG 12-LEAD 2022-03-04 06:07:06 Adrián [facility] ECG 12-LEAD 2022-03-04 06:07:06 Unknown, Hl7 Doctor [facility] ECG 12-LEAD 2022-03-04 06:07:06 Unknown, Hl7 Doctor [facility] BASIC METABOLIC PANEL (7) 2022-03-04 05:58:[address] [facility] MAGNESIUM 2022-03-04 05:58:00 Adrián [facility] PHOSPHORUS 2022-03-04 05:58:00 Adrián [facility] HEPATIC FUNCTION PANEL 2022-03-04 05:58:00 Basil [facility] VANCOMYCIN LEVEL, TROUGH 2022-03-04 05:58:00 Thuy Cruz [facility] BLOOD GAS, ARTERIAL 2022-03-04 05:00:00 Montez, [facility] CALCIUM, IONIZED 2022-03-04 05:00:00 Naveen Parish [facility] CBC W/PLT COUNT & AUTO 2022-03-04 05:00:00 Adrián [facility] PROTHROMBIN TIME/INR 2022-03-04 05:00:00 Sampson, [facility] APTT 2022-03-04 05:00:00 Sampson, [facility] CBC W/PLT COUNT & AUTO 2022-03-04 05:00:00 Adrián [facility] XR CHEST 1 VIEW PORTABLE / 2022-03-04 01:50:00 Adrián [facility] BEDSIDE [facility] PREPARE PLASMA 2022-03-03 23:56:00 Abdelrahman Booker [facility] CBC W/PLT COUNT & AUTO 2022-03-03 20:18:00 Minerva Yost [facility] CBC W/PLT COUNT & AUTO 2022-03-03 20:18:00 Minerva Yost [facility] POCT-GLUCOSE METER 2022-03-03 18:48:00 [facility] TRANSFUSE LEUKO-REDUCED RED 2022-03-03 17:11:00 Minerva Yost [facility] BLOOD CELLS [facility] POCT-GLUCOSE METER 2022-03-03 13:31:00 Thelma [facility] LACTIC ACID, ARTERIAL 2022-03-03 08:24:00 Jem [facility] BLOOD GAS, ARTERIAL 2022-03-03 08:24:00 Kris Orona [facility] CBC (HEMOGRAM ONLY) 2022-03-03 08:24:[address] [facility] XR CHEST 1 VIEW PORTABLE / 2022-03-03 08:20:00 Veronica Sampson [facility] BEDSIDE [facility] TRANSFUSE LEUKO-REDUCED RED 2022-03-03 06:10:00 Keyshawn Parish [facility] BLOOD [facility] BASIC METABOLIC PANEL (7) 2022-03-03 04:47:00 Angelica Montez [facility] CBC W/PLT COUNT & AUTO 2022-03-03 04:47:00 [facility] MAGNESIUM 2022-03-03 04:47:00 [facility] PHOSPHORUS 2022-03-03 04:47:00 Tc [facility] PROTHROMBIN TIME/INR 2022-03-03 04:47:00 [facility] LACTIC ACID, ARTERIAL 2022-03-03 04:47:00 Jem [facility] TSH/FREE T4 IF INDICATED 2022-03-03 04:47:00 Kris Orona [facility] HEPATIC FUNCTION PANEL 2022-03-03 04:47:[address] [facility] CBC W/PLT COUNT & AUTO 2022-03-03 04:47:00 Tc [facility] (CELLAVISION MANUAL DIFF) 2022-03-03 04:47:00 Angelica Montez [facility] BLOOD GAS, ARTERIAL 2022-03-03 04:40:[address] [facility] RRL CRITICAL LABS 2022-03-03 04:40:00 [facility] (ABG,NA,K,H&H,GLUCOSE) Medical C enter SODIUM NA-STAT LAB 2022-03-03 04:40:00 [facility] POTASSIUM-STAT LAB 2022-03-03 04:40:00 [facility] GLUCOSE-STAT LAB 2022-03-03 04:40:00 [facility] - [facility] LAB 2022-03-03 04:40:00 [facility] CALCIUM, IONIZED 2022-03-03 04:30:00 [facility] RRL CRITICAL LABS 2022-03-03 02:44:00 [facility] (ABG,NA,K,H&H,GLUCOSE) Medical C enter BLOOD GAS, ARTERIAL 2022-03-03 02:44:00 [facility] SODIUM NA-STAT LAB 2022-03-03 02:44:00 [facility] POTASSIUM-STAT LAB 2022-03-03 02:44:00 [facility] GLUCOSE-STAT LAB 2022-03-03 02:44:00 [facility] HGB/HCT (H&H) - STAT LAB 2022-03-03 02:44:00 [facility] XR CHEST 1 VIEW PORTABLE / 2022-03-03 01:06:00 Veronica Sampson [facility] BEDSIDE [facility] APTT 2022-03-03 00:38:00 Angelica Montez [facility] LACTIC ACID, ARTERIAL 2022-03-03 00:37:00 [facility] RRL CRITICAL LABS 2022-03-03 00:37:00 [facility] (ABG,NA,K,H&H,GLUCOSE) Medical C enter BLOOD GAS, ARTERIAL 2022-03-03 00:37:00 [facility] SODIUM NA-STAT LAB 2022-03-03 00:37:00 [facility] POTASSIUM-STAT LAB 2022-03-03 00:37:00 [facility] GLUCOSE-STAT LAB 2022-03-03 00:37:00 Jem [facility] HGB/HCT (H&H) - STAT LAB 2022-03-03 00:37:00 [facility] 12-LEAD 2022-03-03 00:27:27 Sampson, [facility] 12-LEAD 2022-03-03 00:27:27 Unknown, Hl7 [facility] ECG 12-LEAD 2022-03-03 00:27:27 Unknown, Hl7 [facility] PREPARE RBC 2022-03-02 21:52:00 Abdelrahman Booker [facility] MAGNESIUM 2022-03-02 21:33:00 Adrián [facility] PHOSPHORUS 2022-03-02 21:33:00 Adrián [facility] CBC W/PLT COUNT & AUTO 2022-03-02 21:33:00 Adrián [facility] DIFFERENTIAL [facility] RRL CRITICAL LABS 2022-03-02 21:33:00 [facility] (ABG,NA,K,H&H,GLUCOSE) Medical C enter CALCIUM, IONIZED 2022-03-02 21:33:00 [facility] PROTHROMBIN TIME/INR 2022-03-02 21:33:00 Jem Naveen [facility] APTT 2022-03-02 21:33:00 [facility]em [facility] FIBRINOGEN 2022-03-02 21:33:00 Jem [facility] OXYGEN SATURATION, MEASURED 2022-03-02 21:33:00 Keyshawn Parish [facility] LACTIC ACID, ARTERIAL 2022-03-02 21:33:00 Jem Naveen [facility] COMPREHENSIVE METABOLIC 2022-03-02 21:33:00 Naveen Parish [facility] BLOOD GAS, ARTERIAL 2022-03-02 21:33:00 Martha Parishreza [facility] SODIUM NA-STAT LAB 2022-03-02 21:33:00 Jem [facility] POTASSIUM-STAT LAB 2022-03-02 21:33:00 [facility] GLUCOSE-STAT LAB 2022-03-02 21:33:00 [facility] HGB/HCT (H&H) - STAT LAB 2022-03-02 21:33:00 [facility] CBC W/PLT COUNT & AUTO 2022-03-02 21:33:00 [facility] (CELLAVISION MANUAL DIFF) 2022-03-02 21:33:00 [facility] CHEST 1 VIEW PORTABLE / 2022-03-02 21:29:00 eMlissa Parish [facility] POCT-ACT 2022-03-02 20:23:00 Jaynmisaiahhonorhealth rehabilitation hospital [facility] RRL CRITICAL LABS 2022-03-02 20:20:01 [facility] (ABG,NA,K,H&H,GLUCOSE) Medical C enter CALCIUM, IONIZED 2022-03-02 20:20:01 [facility] BLOOD GAS, ARTERIAL 2022-03-02 20:20:01 [facility] SODIUM NA-STAT LAB 2022-03-02 20:20:01 [facility] POTASSIUM-STAT LAB 2022-03-02 20:20:01 [facility] 2022-03-02 20:20:01 [facility] HGB/HCT (H&H) - STAT LAB 2022-03-02 20:20:01 Paola Yessicadanii [facility] POCT-ACT 2022-03-02 19:46:00 Jaynmisaiahhonorhealth rehabilitation hospital [facility] RRL CRITICAL LABS 2022-03-02 19:43:48 [facility] (ABG,NA,K,H&H,GLUCOSE) [facility] enter BLOOD GAS, ARTERIAL 2022-03-02 19:43:48 Jillian [facility] SODIUM NA-STAT LAB 2022-03-02 19:43:48 Jillian [facility] POTASSIUM-STAT LAB 2022-03-02 19:43:48 Jillian [facility] GLUCOSE-STAT LAB 2022-03-02 19:43:48 Jillian [facility] HGB/HCT (H&H) - STAT LAB 2022-03-02 19:43:48 Jillian [facility] POCT-ACT 2022-03-02 19:14:00 [facility] LACTIC ACID, VENOUS 2022-03-02 19:09:51 Jillian [facility] BLOOD GAS, VENOUS 2022-03-02 19:09:48 Jillian [facility] [employer] CULTURE + SMEAR 2022-03-02 18:54:58 [facility]ian [facility] ([facility]UM[facility] ANAEROBIC CULTURE 2022-03-02 18:54:58 Jillian [facility] FUNGUS CULTURE + SMEAR 2022-03-02 18:54:58 Jillian Dae [place] SURGICALLY OBTAINED CULTURE 2022-03-02 18:54:[address] [facility] + GRAM STAIN [facility] [employer] CULTURE + SMEAR 2022-03-02 18:46:44 Dae Walsh [facility] (NON-SPUTUM) [facility] ANAEROBIC CULTURE 2022-03-02 18:46:44 [facility] FUNGUS CULTURE + SMEAR 2022-03-02 18:46:44 Dae Walsh [facility] SURGICALLY OBTAINED CULTURE 2022-03-02 18:46:[address] [facility] + GRAM STAIN [facility] TISSUE EXAM 2022-03-02 18:37:00 [facility] PO[facility]-ACT 2022-03-02 18:35:00 Jem [facility] RRL CRITICAL LABS 2022-03-02 18:33:54 [facility] (ABG,NA,K,H&H,GLUCOSE) [facility] enter BLOOD GAS, ARTERIAL 2022-03-02 18:33:54 [facility] SODIUM NA-STAT LAB 2022-03-02 18:33:54 Jillian [facility] POTASSIUM-STAT LAB 2022-03-02 18:33:54 Jillian [facility] GLUCOSE-STAT LAB 2022-03-02 18:33:54 Jillian [facility] HGB/HCT (H&H) - STAT LAB 2022-03-02 18:33:54 Jillian, [facility] LACTIC ACID, VENOUS 2022-03-02 18:27:52 Jillian [facility] POCT-ACT 2022-03-02 18:12:00 Jem [facility] RRL CRITICAL LABS 2022-03-02 18:10:27 JillianMicky eckertDayton [facility] (ABG,NA,K,H&H,GLUCOSE) [facility] enter BLOOD GAS, ARTERIAL 2022-03-02 18:10:27 Jillian, [facility] SODIUM NA-STAT LAB 2022-03-02 18:10:27 Jillian [facility] POTASSIUM-STAT LAB 2022-03-02 18:10:27 Jillian [facility] GLUCOSE-STAT LAB 2022-03-02 18:10:27 Jillian [facility] HGB/HCT (H&H) - STAT LAB 2022-03-02 18:10:27 Jillian [facility] POCT-ACT 2022-03-02 18:01:00 [facility] TRANSF[facility]ASMA 2022-03-02 17:53:00 [facility] ANESTHESIA PACO 2022-03-02 17:48:50 [facility] POCT-ACT 2022-03-02 17:48:00 [facility] RRL CRIT[facility] LABS 2022-03-02 17:03:45 [facility] (ABG,NA,K,H&H,GLUCOSE) [facility] enter CALCIUM, IONIZED 2022-03-02 17:03:45 [facility] BLOOD GAS, ARTERIAL 2022-03-02 17:03:45 [facility] SODIUM NA-STAT LAB 2022-03-02 17:03:45 [facility] POTASSIUM-STAT LAB 2022-03-02 17:03:45 [facility] GLUCOSE-STAT LAB 2022-03-02 17:03:45 [facility] HGB/HCT (H&H) - STAT LAB 2022-03-02 17:03:45 [facility] ROBOTIC MITRAL VALVE 2022-03-02 15:45:[address] [facility] REPLACEMENT [facility] ROBOTIC MITRAL VALVULOPLASTY 2022-03-02 15:45:00 [facility]/ DAVINCI XI 2022-03-02 15:45:00 Jillian [facility] US NECK 2022-03-02 12:25:00 Jewels Babcock [facility] HC ARTERIAL DOPPLER ARM UNI 2022-03-02 12:02:00 Rohit Correassica [facility] APTT 2022-03-02 10:55:00 Ingrid [facility] BLOOD GAS, ARTERIAL 2022-03-02 08:19:00 Ingrid [facility] APTT 2022-03-02 08:19:00 Ingrid [facility] APTT 2022-03-02 06:36:00 Angelica Montez [facility] XR CHEST 1 VIEW PORTABLE / 2022-03-02 06:00:00 Angelica Montez [facility] CT NECK SOFT TISSUE WITH IV 2022-03-02 05:22:00 Sheri Huitron [facility] CONTRAST [facility] CT CHEST WITHOUT IV CONTRAST 2022-03-02 05:22:00 MontezDanielle [facility] CALCIUM, IONIZED 2022-03-02 03:56:00 Naveen Parish [facility] CBC W/PLT COUNT & AUTO 2022-03-02 03:56:00 Angeliac Montez [facility] DIFFERENTIAL [facility] CBC W/PLT COUNT & AUTO 2022-03-02 03:56:00 [facility] BASIC METABOLIC PANEL (7) 2022-03-02 03:55:00 Angelica Montez [facility] MAGNESIUM 2022-03-02 03:55:00 Angelica Montez [facility] PHOSPHORUS 2022-03-02 03:55:00 Montez [facility] BLOOD GAS, ARTERIAL 2022-03-02 03:55:[address] [facility] HEPATIC FUNCTION PANEL 2022-03-02 03:55:[address] [facility] TRIGLYCERIDES 2022-03-02 03:55:00 VallabhHope Nina [facility] BLOOD GAS, ARTERIAL 2022-03-02 01:22:[address] [facility] XR ABDOMEN / KUB 1 VIEW 2022-03-02 00:45:[address] [facility] XR CHEST 1 VIEW PORTABLE / 2022-03-01 23:22:[address] [facility] XR CHEST 1 VIEW PORTABLE / 2022-03-01 22:21:[address] [facility] TYPE AND SCREEN, AUTOMATED 2022-03-01 20:23:00 Adam Beaver [facility] HEMOGLOBIN A1C 2022-03-01 20:22:00 Adam Beaver [facility] TSH 2022-03-01 20:22:00 Adam Beaver [facility] APTT 2022-03-01 20:16:00 Araceli [facility] SARS-COV2/RT-PCR (HS & REF 2022-03-01 14:13:00 Adam Gracia [facility] LABS) [facility] APTT 2022-03-01 14:12:00 Araceli [facility] APTT 2022-03-01 07:24:00 Araceli [facility] APTT 2022-03-01 05:07:[address] [facility] HEPATIC FUNCTION PANEL 2022-03-01 05:07:[address] [facility] BASIC METABOLIC PANEL (7) 2022-03-01 05:07:00 Lernogrisel Adam [facility] MAGNESIUM 2022-03-01 05:07:00 Dayronnor Adam [facility] PHOSPHORUS 2022-03-01 05:07:00 DayronnoAdam givens [facility] PROTHROMBIN TIME/INR 2022-03-01 05:07:00 DayronnoAdam givens [facility] CBC W/PLT COUNT & AUTO 2022-03-01 05:07:00 LernorAdam [facility] S [facility] DIFFERENTIAL [facility] CBC W/PLT COUNT & AUTO 2022-03-01 05:07:00 Adam Gracia [facility] S [facility] (CELLAVISION MANUAL DIFF) 2022-03-01 05:07:00 Adam Gracia CH [facility] APTT 2022-02-28 21:45:00 [facility] APTT 2022-02-28 12:07:00 [facility] PHOSPHATIDYLSERINE ABS (IGG, 2022-02-28 12:02:00 Benny Conklin [facility] IGM) [facility] CBC W/PLT COUNT & AUTO 2022-02-28 05:55:00 Adam Gracia [facility] S [facility] CBC W/PLT COUNT & AUTO 2022-02-28 05:55:00 Adam Gracia [facility] S [facility] (CELLAVISION MANUAL DIFF) 2022-02-28 05:55:00 Adam Gracia CH [facility] APTT 2022-02-28 05:54:[address] [facility] HEPATIC FUNCTION PANEL 2022-02-28 05:54:00 Katie Graciachary [facility] S [facility] BASIC METABOLIC PANEL (7) 2022-02-28 05:54:00 LernorJoery CH I [facility] MAGNESIUM 2022-02-28 05:54:00 [facility]OS[facility] 2022-02-28 05:54:00 Dayronnogrisel [facility] PROTHROMBIN TIME/INR 2022-02-28 05:54:00 [facility] 2022-02-27 21:01:00 Araceli [facility] APTT 2022-02-27 14:26:00 Araceli [facility] BEDSIDE SPIROMETRY 2022-02-27 14:16:00 Sumner [facility] VANCOMYCIN LEVEL, TROUGH 2022-02-27 09:20:00 [facility] 2022-02-27 05:41:[address] [facility] KARIUS NEXT GENERATION 2022-02-27 05:41:00 Priya Rojas [facility] HEPATIC FUNCTION PANEL 2022-02-27 05:41:00 Basil [facility] BASIC METABOLIC PANEL (7) 2022-02-27 05:41:00 Adam Gracia [facility] MAGNESIUM 2022-02-27 05:41:00 Basil [facility] PHOSPHORUS 2022-02-27 05:41:00 [facility] PROTHROMBIN TIME/INR 2022-02-27 05:41:00 [facility] CBC W/PLT COUNT & AUTO 2022-02-27 05:41:00 Basil Adam [facility] DIFFERENTIAL [facility] CBC W/PLT COUNT & AUTO 2022-02-27 05:41:00 Basil [facility] DIFFERENTIAL [facility] (CELLAVISION MANUAL DIFF) 2022-02-27 05:41:00 Adam Gracia [facility] LEGIONELLA PNEUMOPHILA 2022-02-27 05:40:00 GómezJessica [facility] ANTIBODY (IGG) [facility] APTT 2022-02-26 20:48:00 Araceli [facility] CTA AAA AND RUNOFF 2022-02-26 11:45:00 [facility] 2022-02-26 10:18:00 Araceli [facility] FIBRINOGEN 2022-02-26 05:42:00 Lerruth [facility] APTT 2022-02-26 05:42:00 Adrián [facility] HEPATIC FUNCTION PANEL 2022-02-26 05:42:00 Basil [facility] BASIC METABOLIC PANEL (7) 2022-02-26 05:42:00 Adam Gracia [facility] MAGNESIUM 2022-02-26 05:42:00 Basil [facility] PHOSPHORUS 2022-02-26 05:42:00 Basil [facility] PROTHROMBIN TIME/INR 2022-02-26 05:42:00 Basil [facility] CBC W/PLT COUNT & AUTO 2022-02-26 05:42:00 Basil [facility] DIFFERENTIAL [facility] CBC W/PLT COUNT & AUTO 2022-02-26 05:42:00 Basil [facility] DIFFERENTIAL [facility] (CELLAVISION MANUAL DIFF) 2022-02-26 05:42:00 Basil Adam [facility] PLATELET COUNT 2022-02-26 00:00:00 Araceli [facility] APTT 2022-02-26 00:00:00 Araceli [facility] APTT 2022-02-25 15:52:00 Ar[address] [facility] CT BRAIN WITHOUT IV CONTRAST 2022-02-25 14:50:00 Araceli, Alok [facility] VANCOMYCIN LEVEL, TROUGH 2022-02-25 11:57:00 Priya Rojas [facility] HC ARTERIAL DOPPLER LEGS BRANDEE 2022-02-25 10:30:00 Basil [facility] FIBRINOGEN 2022-02-25 04:10:00 Basil [facility] APTT 2022-02-25 04:10:[address] [facility] HEPATIC FUNCTION PANEL 2022-02-25 04:10:00 Basil [facility] BASIC METABOLIC PANEL (7) 2022-02-25 04:10:00 Basil Adam [facility] MAGNESIUM 2022-02-25 04:10:00 Basil [facility] PHOSPHORUS 2022-02-25 04:10:00 Basil [facility] PROTHROMBIN TIME/INR 2022-02-25 04:10:00 Basil [facility] CBC W/PLT COUNT & AUTO 2022-02-25 04:10:00 Basil [facility] DIFFERENTIAL [facility] CBC W/PLT COUNT & AUTO 2022-02-25 04:10:00 Basil [facility] DIFFERENTIAL [facility] (CELLAVISION MANUAL DIFF) 2022-02-25 04:10:00 Basil Adam I [facility] LACTIC ACID, VENOUS 2022-02-25 00:11:[address] [facility] CTA CHEST,ABDOMEN & PELVIS - 2022-02-24 18:10:[address] [facility] FOR DISSECTION [facility] LACTIC ACID, VENOUS 2022-02-24 17:15:[address] [facility] FUNGUS CULTURE, BLOOD 2022-02-24 17:14:00 [place] [facility] (ISOLATOR) [facility] XR CHEST 1 VIEW PORTABLE / 2022-02-24 15:24:00 Veronica Sampson [facility] BEDSIDE [facility] LACTIC ACID, VENOUS 2022-02-24 10:25:00 [facility] FIBRIN[facility]EN 2022-02-24 10:25:00 Basil [facility] HEPATIC FUNCTION PANEL 2022-02-24 10:25:00 Basil [facility] BASIC METABOLIC PANEL (7) 2022-02-24 10:25:00 Adam Gracia [facility] MAGNESIUM 2022-02-24 10:25:00 Basil [facility] PHOSPHORUS 2022-02-24 10:25:00 [facility] PROTHROMBIN TIME/INR 2022-02-24 10:25:00 [facility] CBC W/PLT COUNT & AUTO 2022-02-24 10:25:00 Basil [facility] VANCOMYCIN LEVEL, TROUGH 2022-02-24 10:25:00 Priya Rojas [facility] CREATINE KINASE (CK) 2022-02-24 10:25:00 Dayanara Garcia [facility] CBC W/PLT COUNT & AUTO 2022-02-24 10:25:00 Katie Graciachary [facility] (CELLAVISION MANUAL DIFF) 2022-02-24 10:25:00 Basil Adam [facility] TRANSESOPHAGEAL ECHO 2022-02-24 08:45:39 Joe Montemayor [facility] POTASSIUM 2022-02-23 15:35:00 Basil [facility] LACTIC ACID, VENOUS 2022-02-23 15:35:00 [facility] LACTIC ACID, VENOUS 2022-02-23 03:30:00 Basil [facility] CALCIUM, IONIZED 2022-02-23 03:30:00 Basil [facility] HEPATIC FUNCTION PANEL 2022-02-23 03:30:00 Basil [facility] BASIC METABOLIC PANEL (7) 2022-02-23 03:30:00 Basil Adam I [facility] MAGNESIUM 2022-02-23 03:30:00 Basil [facility] PHOSPHORUS 2022-02-23 03:30:00 Basil [facility] PROTHROMBIN TIME/INR 2022-02-23 03:30:00 Basil [facility] FIBRINOGEN 2022-02-23 03:30:00 Basil [facility] CBC W/PLT COUNT & AUTO 2022-02-23 03:30:00 Basil [facility] DIFFERENTIAL [facility] CBC W/PLT COUNT & AUTO 2022-02-23 03:30:00 Basil [facility] DIFFERENTIAL [facility] (CELLAVISION MANUAL DIFF) 2022-02-23 03:30:00 Adam Gracia [facility] COLOR-FLOW MAPPING 2022-02-23 00:31:21 Joe Montemayor [facility] CONT WAVE PULSED DOPPLER 2022-02-23 00:31:21 Joe Montemayor [facility] LACTIC ACID, VENOUS 2022-02-22 22:26:00 Huseyin Carter [facility] HIGH SENSITIVITY TROPONIN I 2022-02-22 21:46:00 Basil [facility] SARS-COV2/RT-PCR (SLHS & REF 2022-02-22 17:26:00 [facility] DRUG TEST, GENERAL 2022-02-22 17:21:00 Casa Ortizk [facility] TOXICOLOGY, [facility] HEMOGLOBIN AND HEMATOCRIT 2022-02-22 16:02:00 Adam Gracia [facility] LACTIC ACID, VENOUS 2022-02-22 15:46:00 Basil [facility] PROCALCITONIN 2022-02-22 15:46:00 Basil [facility] HSV 1/2 PCR, QUALITATIVE 2022-02-22 12:50:00 Benny Conklin [facility] COMPREHENSIVE METABOLIC 2022-02-22 12:50:00 Huseyin Carter [facility] US DOPPLER 2022-02-22 12:37:00 Basil [facility] HEPATITIS C PCR, 2022-02-22 09:50:00 Huseyin Carter [facility] EBV VIRAL LOAD 2022-02-22 09:50:00 Benny Conklin [facility] CMV PCR, QUANTITATIVE 2022-02-22 09:50:00 Benny Conklin [facility] HEPATITIS B PCR, 2022-02-22 09:50:00 Benny Conklin [facility] HEPATITIS C GENOTYPE 2022-02-22 09:48:00 Huseyin Carter [facility] ETHANOL 2022-02-22 09:48:00 Basil [facility] LACTIC ACID, VENOUS 2022-02-22 09:48:00 aBsil [facility] ACTIN (SMOOTH MUSCLE) 2022-02-22 09:48:00 Benny Conklin [facility] ANTIBODY, IGG [facility] ANTI-MITOCHONDRIAL AB, 2022-02-22 09:48:00 Benny Conklin [facility] REFLEX TO TITER [facility] CERULOPLASMIN 2022-02-22 09:48:00 [facility] IGG/IGM EIA 2022-02-22 09:48:00 Rubin [facility] MITOCHONDRIAL AB SCREEN 2022-02-22 09:48:00 Rubin [facility] MITOCHONDRIAL AB TITER 2022-02-22 09:48:00 Rubin [facility] ABORH, MANUAL 2022-02-22 09:48:00 Aundrea Aguilera [facility] 2D ECHO W/ DOPPLER 2022-02-22 09:11:05 Adam Gracia [facility] (CW/PW/COLOR) [facility] US ABDOMEN LIMITED 2022-02-22 04:35:00 MacIndira [facility] VANCOMYCIN LEVEL, TROUGH 2022-02-22 04:12:00 MacIndira [facility] BLOOD CULTURE 2022-02-22 03:43:00 MacMath [facility] BLOOD CULTURE 2022-02-22 03:42:00 [facility] W/PLT COUNT & AUTO 2022-02-22 03:32:[address] [facility] AMMONIA 2022-02-22 03:32:00 [facility] PROTHROMBIN TIME/INR 2022-02-22 03:32:00 MacIndira [facility] APTT 2022-02-22 03:32:00 MacIndira [facility] SALICYLATE LEVEL 2022-02-22 03:32:[address] [facility] LAB HIV-1 AG W/HIV-1&2 AB 2022-02-22 03:32:[address] [facility] RPR 2022-02-22 03:32:00 Diana [facility] BASIC METABOLIC PANEL (7) 2022-02-22 03:32:00 Clive Ortiz [facility] HEPATIC FUNCTION PANEL 2022-02-22 03:32:00 MacClive Jacobson [facility] HEPATITIS PANEL, ACUTE 2022-02-22 03:32:00 MacClive Jacobson [facility] HEPATITIS A PANEL 2022-02-22 03:32:00 MacClive Jacobson [facility] HEPATITIS B SURFACE ANTIBODY 2022-02-22 03:32:[address] [facility] HEPATITIS B CORE ANTIBODY, 2022-02-22 03:32:[address] [facility] LACTIC ACID, VENOUS 2022-02-22 03:32:00 Clive Ortiz [facility] RICKETTSIA AB PANEL WITH 2022-02-22 03:32:00 Clive Ortiz [facility] REFLEX TO TITER [facility] ANTI-NUCLEAR ANTIBODY (GAGE) 2022-02-22 03:32:00 Rubin [facility] EBV ANTIBODY, IGG 2022-02-22 03:32:00 Rubin [facility] CYTOMEGALOVIRUS ANTIBODY, 2022-02-22 03:32:00 Rubin [facility] VITAMIN B12 AND FOLATE 2022-02-22 03:32:00 Basil [facility] IRON, TIBC, % SAT. (WITHOUT 2022-02-22 03:32:00 [facility] FERRITIN) [facility] FERRITIN 2022-02-22 03:32:00 Basil [facility] COMPLEMENT COMPONENT C4 2022-02-22 03:32:00 Rubin [facility] GAGE TITER AND PATTERN 2022-02-22 03:32:00 [facility] TYPE AND SCREEN, AUTOMATED 2022-02-22 03:32:[address] [facility] CBC W/PLT COUNT & AUTO 2022-02-22 03:32:00 Clive Ortiz [facility] (CELLAVISION MANUAL DIFF) 2022-02-22 03:32:00 Clive Ortiz [facility] RAPID STREP SCREEN FOR GROUP 2021-07-07 19:32:00 Kang Sierra [facility] CONSENT/REFUSAL FOR 2021-07-07 19:21:22 Doctor Unassholley [facility] DIAGNOSIS AND TREATMENT [place] [facility] CT ABDOMEN PELVIS W CONTRAST 2020-06-29 21:42:27 Pamella Aquino [facility] LIPASE 2020-06-29 20:31:00 Pamella Aquino [facility] COMP. METABOLIC PANEL 2020-06-29 20:31:00 Pamella Aquino [facility] ([id number]) [facility] CBC WITH DIFF 2020-06-29 20:31:00 Pamella Aquino [facility] URINALYSIS 2020-06-29 20:31:00 Pamella Aquino [facility] NOTICE OF PRIVACY PRACTICES 2020-06-29 20:08:11 Doctor Yuridia robert [facility] Name [facility] CONSENT/REFUSAL FOR 2020-06-29 20:05:43 Doctor Quin [facility] Trichomonas Culture 2018-04-10 00:00:00 [facility] [LH] GC/CT by Amp Det 2018-04-10 00:00:00 [facility] (APTIMA) [QH] HIV AB, HIV 1/2, EIA, 2018-04-10 00:00:00 [facility] WITH REFLEXES [QLH] RPR 2018-04-10 00:00:00 [facility] [QL[facility]] HEPATITIS PANEL 2018-04-10 00:00:00 [facility] [QLH] TSH, 3RD GENERATION 2018-04-10 00:00:00 [facility] W/REFLEX TO FT4 History of Dental surgery [facility] History of Orchiopexy [facility] Plan of Care Planned Activity Planned Date Details Comments Source Future Scheduled 2028-04-10 DTAP/TDAP/TD VACCINES [facility] Test 00:00:00 (4 - Td or Tdap) [code Medic al Center = DTAP/TDAP/TD VACCINES (4 - Td or Tdap)] Future Scheduled 2028-04-10 DTAP/TDAP/TD VACCINES [facility] Test 00:00:00 (4 - Td or Tdap) [code Medic al Center = DTAP/TDAP/TD VACCINES (4 - Td or Tdap)] Future Scheduled 2022-10-[address] [facility] Test 00:00:00 (procedure) [code = [facility] [id number]] Future Scheduled 2022-10-[address] [facility] Test 00:00:00 (procedure) [code = [facility] [id number]] Future Scheduled 2022-07-20 COVID-19 VACCINE (#1) [facility] Test 18:16:05 [code = COVID-19 VACCINE (#1)] Future Scheduled 2022-07-20 Pneumococcal Vaccine: [facility] Test 18:16:05 Pediatrics (0 to 5 Years) and At-Risk Patients (6 to 64 Years) (1 - PCV) [code = Pneumococcal Vaccine: Pediatrics (0 to 5 Years) and At-Risk Patients (6 to 64 Years) (1 - PCV)] Future Scheduled 2022-07-20 INFLUENZA VACCINE Method [facility] Hospital Test 18:16:05 [code = INFLUENZA VACCINE] Future Scheduled 2022-07-20 COVID-19 VACCINE (#1) [facility] Test 18:16:05 [code = COVID-19 VACCINE (#1)] Future Scheduled 2022-07-20 Pneumococcal Vaccine: [facility] Test 18:16:05 Pediatrics (0 to 5 Years) and At-Risk Patients (6 to 64 Years) (1 - PCV) [code = Pneumococcal Vaccine: Pediatrics (0 to 5 Years) and At-Risk Patients (6 to 64 Years) (1 - PCV)] Future Scheduled 2022-07-20 INFLUENZA VACCINE Method [facility] Test 18:16:05 [code = INFLUENZA VACCINE] Future Scheduled 2022-07-20 INFLUENZA VACCINE (#1) [facility] 00:00:00 [code = INFLUENZA Medical Ce nter VACCINE (#1)] Future Scheduled 2022-07-20 INFLUENZA VACCINE (#1) [facility] Test 00:00:00 [code = INFLUENZA Medical Ce nter VACCINE (#1)] Future Scheduled 2021-11-[address] [facility] Test 00:00:00 (12+) [code = Medical Center DEPRESSION SCREENING (12+)] Future Scheduled 2021-11-[address] [facility] Test 00:00:00 (12+) [code = Medical Center DEPRESSION SCREENING (12+)] Future Scheduled [address] [facility] Test 00:00:00 0-64 YRS (1 - PCV) Medical C enter [code = PNEUMOCOCCAL VACCINE 0-64 YRS (1 - PCV)] Future Scheduled [address] [facility] Test 00:00:00 0-64 YRS (1 - PCV) Medical C enter [code = PNEUMOCOCCAL VACCINE 0-64 YRS (1 - PCV)] Future Scheduled 1999 COVID-19 VACCINE (#1) [facility] Test 00:00:00 [code = COVID-[address] VACCINE (#1)] Future Scheduled 1999 COVID-19 VACCINE (#1) [facility] Test 00:00:00 [code = COVID-[address] VACCINE (#1)] Future Scheduled COVID-19 VACCINE (1) Met [facility] Test [code = COVID-19 VACCINE (1)] Future Scheduled INFLUENZA VACCINE Method [facility] Hospital Test [code = INFLUENZA VACCINE] Encounters Start End Encounter Admission Attending Care Care Encounter Source Date/Time Date/Time Type Type Clinicians Facility Department ID 2022-07-03 2022-07-03 Refill Maria A, 1.2.840.1 [id number] Methodi 00:00:00 00:00:[address] 3.430.2.7 Hospit a .3.368507 l .8 2022-07-03 2022-07-03 Refill Maria A, 1.2.840.1 [id number] Methodi 00:00:00 00:00:[address] 3.430.2.7 Hospit a .3.298602 l .8 2022-06-09 2022-06-09 Ekaterina Howe [facility] [id number] 00:[facility]00 00:00:00 [facility] 2022-06-09 2022-06-09 Telephone [place], [facility] [id number] 00:00:00 00:00:00 [facility] 2022-06-02 2022-06-02 Telephone [place], [facility] [id number] 00:00:00 00:00:00 [facility] 2022-06-02 2022-06-02 Telephone Shyam, [facility] [id number] 00:00:00 00:00:00 [facility] 2022-05-25 2022-05-28 Inpatient X JACKIE, [facility] [id number] 00:29:00 10:45:00 HUBERT ity of [facility] 2022-05-25 2022-05-28 [facility] Luis Alberto Fonseca 1.2.840.1 [id number] [facility] 00:29:00 10:45:00 Encounter Lincoln Rahman 350.1.13.10 ity [facility] 4.2.7.2.686 [facility] [id number] [facility] Hubert Mejia Cheryl 0[facility] 2022-05-24 2022-05-24 Office [facility], 1.2.840.1 [id number] Methodi 14:30:00 14:40:00 Visit Damien Mejia 40829.1.[address] 3.430.2.7 Hospit a .3.521425 l .8 2022-05-24 2022-05-24 Office [facility], 1.2.840.1 [id number] Methodi 14:30:00 14:40:00 Visit Damien Mejia 83943.1.[address] 3.430.2.7 Hospit a .3.821903 l .8 2022-05-16 2022-05-16 Telephone Shyam, [facility] [id number] 00:00:00 00:00:00 [facility] 2022-05-16 2022-05-16 Telephone Shyam [facility] [id number] 00:00:00 00:00:00 [facility] 2022-05-15 2022-05-15 Office Stefano, 1.2.840.1 [id number] Methodi 10:00:00 11:45:31 Visit Yarelis 27891.1.[address] 3.430.2.7 Hospit a .3.609430 l .8 2022-05-15 2022-05-15 Office Stefano, 1.2.840.1 [id number] Methodi 10:00:00 11:45:31 Visit Yarelis 41866.1.[address] 3.430.2.7 Hospit a .3.885916 l .8 2022-05-15 2022-05-15 Telephone Tee Pascual 1.2.840.1 [id number] Methodi 00:00:00 00:00:[address] 3.430.2.7 Hospit a .3.190825 l .8 2022-05-15 2022-05-15 Travel 1.2.840.1 1.2.650.664 [id number] Methodi 00:00:00 00:00:[address] 3.430.2.7 0.2.7.3.698 Ho spita .3.941383 084.8 l .8 2022-05-15 2022-05-15 Telephone TeeMikhaily 1.2.840.1 [id number] Methodi 00:00:00 00:00:[address] 3.430.2.7 Hospit a .3.501579 l .8 2022-05-15 2022-05-15 Travel 1.2.840.1 1.2.601.009 [id number] Methodi 00:00:00 00:00:[address] 3.430.2.7 0.2.7.3.698 Ho spita .3.832565 084.8 l .8 2022-05-08 2022-05-08 Telephone Carito 1.2.840.1 [id number] Methodi 00:00:00 00:00:00 , Osmar 26354.1.[address] [place] 3.430.2.7 Hosp ronald .3.587372 l .8 2022-05-08 2022-05-08 Telephone Carito 1.2.840.1 [id number] Methodi 00:00:00 00:00:00 , Osmar 56158.1.[address] [facility] 3.430.2.7 Hosp ronald .3.160674 l .8 2022-05-05 2022-05-05 [facility], 1.2.840.1 [id number] Methodi 15:45:33 23:59:00 Encounter Purnima 74970.1.[address] 3.430.2.7 Hospit a .3.022236 l .8 2022-05-05 2022-05-05 [facility], 1.2.840.1 [id number] Methodi 15:45:33 23:59:00 Encounter Purnima 65522.1.[address] 3.430.2.7 Hospit a .3.790081 l .8 2022-05-05 2022-05-05 Travel 1.2.840.1 1.2.604.947 [id number] Methodi 00:00:00 00:00:[address] 3.430.2.7 0.2.7.3.698 Ho spita .3.489152 084.8 l .8 2022-05-05 2022-05-05 Travel 1.2.840.1 1.2.429.183 [id number] [id number] Methodi 00:00:00 00:00:[address] 3.430.2.7 0.2.7.3.698 Ho spita .3.669292 084.8 l .8 2022-05-04 2022-05-04 Telemedici Maria A, 1.2.840.1 [id number] Methodi 15:40:00 16:00:00 ne Purnima 39022.1.[address] 3.430.2.7 Hospit a .3.482302 l .8 2022-05-04 2022-05-04 Telemedici Maria A, 1.2.840.1 [id number] Methodi 15:40:00 16:00:00 ne Purnima 51130.1.[address] 3.430.2.7 Hospit a .3.310858 l .8 2022-04-19 2022-04-19 Office Maria A, 1.2.840.1 [id number] Methodi 14:20:00 15:51:08 Visit Purnima 67256.1.[address] 3.430.2.7 Hospit a .3.386332 l .8 2022-04-19 2022-04-19 Office Maria A, 1.2.840.1 [id number] Methodi 14:20:00 15:51:08 Visit Purnima 96946.1.[address] 3.430.2.7 Hospit a .3.269751 l .8 2022-04-19 2022-04-19 [facility] [id number] 12:30:00 13:00:00 Visit [facility] 2022-04-19 2022-04-19 [facility] [id number] 12:30:00 13:00:00 Visit [facility] 2022-04-19 2022-04-19 Outpatient DESHAWN [facility] [id number] [facility] 12:45:53 12:45:53 [facility] 2022-04-19 2022-04-19 Telephone Atedilma, 1.2.840.1 [id number] Methodi 00:00:00 00:00:[address] José Antonio 3.430.2.7 Hospit a .3.976420 l .8 2022-04-19 2022-04-19 Travel 1.2.840.1 1.2.168.580 [id number] [id number] Methodi 00:00:00 00:00:[address] 3.430.2.7 0.2.7.3.698 Ho spita .3.537633 084.8 l .8 2022-04-19 2022-04-19 Telephone Atkins, 1.2.840.1 [id number] Methodi 00:00:00 00:00:[address] José Antonio 3.430.2.7 Hospit a .3.092967 l .8 2022-04-19 2022-04-19 Travel 1.2.840.1 1.2.674.274 [id number] [id number] Methodi 00:00:00 00:00:[address] 3.430.2.7 0.2.7.3.698 Ho spita .3.617580 084.8 l .8 2022-04-14 2022-04-14 Outpatient ZINA BABCOCK [id number] Zina 09:30:00 09:30:00 CARLA robert 2022-04-13 2022-04-13 Emergency Sampson, 1.2.840.1 [id number] Methodi 14:22:00 17:25:00 [place] Light 03597.1.[address] 3.430.2.7 Hospit a .3.217293 l .8 2022-04-13 2022-04-13 Emergency Sampson, 1.2.840.1 [id number] Methodi 14:22:00 17:25:00 [place] [address]256.1.[address] 3.430.2.7 Hospit a .3.705553 l .8 2022-04-13 2022-04-13 Travel 1.2.840.1 1.2.731.309 [id number] Methodi 00:00:00 00:00:[address] 3.430.2.7 0.2.7.3.698 Ho spita .3.676082 084.8 l .8 2022-04-13 2022-04-13 Travel 1.2.840.1 1.2.108.942 [id number] Methodi 00:00:00 00:00:[address] 3.430.2.7 0.2.7.3.698 Ho spita .3.368593 084.8 l .8 2022-04-04 2022-04-04 Telephone [facility] [id number] [facility] 00:00:00 00:00:00 [facility] 2022-04-04 2022-04-04 Telephone [facility] [id number] 00:00[facility]00 00:00[facility]00 [facility] 2022-02-22 2022-03-30 [facility] [id number] [facility] 02:27:00 14:30:00 Encounter Dayanara Garcia, [facility] Naveen Parish, Nemesio Walsh, Dae AbelinoECU Health [facility] HospitalgiaAdam, Susan Winchester, Denisse Delaney, [facility], [facility] 2022-02-22 2022-03-30 Inpatient ER BRODERICK, [facility] Surgery [id number] [address] [place] [address] 02:27:00 14:30:00 [place] [facility]22 2022-03-30 Hospital ER Abdelrahman Booker [facility] [id number] [facility] 02:27:00 14:30:00 Encounter Dayanara Garcia, [facility] Parhizgar, Naveen Renee, Nemesio Walsh, [facility] Anjel, Susan Winchester, Denisse Delaney, Rodolfo Villafana, Arnold Parkscameron 2022-03-04 2022-03-04 Orders [facility] [id number] 00:00:00 00:00:00 [facility] 2022-03-04 2022-03-04 Orders [facility] [id number] 00:00:00 00:00:00 [facility] 2022-03-03 2022-03-03 Outpatient [facility] [id number] [place] [address] 11:45:00 23:59:00 [place] 2022-03-02 2022-03-02 Anesthesia Candy Guevara [facility] [id number] [facility] 15:44:00 21:31:00 Event Vicente Vazquez [facility] 2022-03-02 2022-03-02 Anesthesia Yessica Guevarajoel [facility] [id number] [facility] 15:44:00 21:31:00 Event Vicente Vazquez [facility] 2022-03-02 2022-03-02 Surgery Jillian, [facility] [id number] 11:21:00 18:02:00 [facility] 2022-03-02 2022-03-02 Surgery Jillian, [facility] [id number] 11:21:00 18:02:00 [facility] 2022-03-02 2022-03-02 Anesthesia Vicente Vazquez [facility] [id number] [facility] 06:21:42 06:21:42 Event [facility] 2022-03-02 2022-03-02 Anesthesia Vicente Vazquez [facility] [id number] [facility] 06:21:42 06:21:42 Event [facility] 2022-02-25 2022-02-25 Outpatient [facility] [id number] [facility] 11:45:00 23:59:00 [facility] 2022-02-24 2022-02-24 Outpatient [facility] [id number] [facility] 00:00:00 23:59:00 [facility] 2022-02-24 2022-02-24 Anesthesia [facility] [id number] 08:22:00 09:25:00 Event Vicente [facility] 2022-02-24 2022-02-24 Anesthesia [facility] [id number] 08:22:00 09:25:00 Event Vicente [facility] 2022-02-22 2022-02-22 [facility] [id number] [facility] 02:27:00 23:59:00 [facility] 2022-02-22 2022-02-22 Outpatient ZINA CARTER [id number] Zina 00:00:00 00:00:00 SAMIM Seybol d 2022-02-22 2022-02-[address] [facility] [id number] [facility] 00:[facility] 00:00:00 [facility] 2022-02-22 2022-02-[address] [facility] [id number] [facility] 00:[facility]00 00:00:00 [facility] 2021-07-07 2021-07-07 Emergency Singer PABLANCA [id number] [facility] 14:36:00 16:28:00 Kang Kaye 350.1.13.[address] [facility] 4.2.7.2.686 [facility] [id number] [place] [address] [place] 2021-07-07 2021-07-07 Emergency X SINGER [facility] ERT [id number] Univers 14:22:00 14:22:00 KANG skelton [facility] 2021-07-07 2021-07-07 Orders Doctor CEE [id number] Univers 00:00:00 00:00:00 Only Unassigned, BRIAN 350.1.13.10 ity of [facility] 4.2.7.2.686 [place] [id number] [facility] 009 [address] 2020-06-29 2020-06-29 Emergency [facility] [id number] Univers 15:20:00 18:23:00 Pamella R [place] 350.1.13.10 i ty of [place] 4.2.7.2.686 [facility] [place] [id number] [facility] 084 Branch 2020-06-29 2020-06-29 Emergency [facility] [id number] 15:20:00 18:23:00 Pamella R [place] 350.1.13.10 [place] 4.2.7.2.686 [place] [id number] [facility] 2020-06-29 2020-06-29 Emergency X [facility] ERT [id number] Univers 15:07:00 15:07:00 PAMELLA ity of [facility] 2018-08-06 2018-08-06 Appointmen RAYMUNDO [facility] [id number] [place] 14:00:00 14:00:00 t; JULIO FONSECA Phys ici NILESH, M.D. ans M.D. 2018-06-11 2018-06-11 [facility] [id number] [place] 08:15:00 08:15:00 t; KELLY ESPINOZA D.O. Physici KERRY, ans D.O. 2018-06-10 2018-06-10 Appointmen [facility] [id number] [place] 08:00:00 08:00:00 t; JULIO FONSECA Phys ici NILESH, M.D. ans M.D. 2018-04-10 2018-04-10 Appointmen OLGA [facility] [id number] [place] 08:00:00 08:00:00 t; KELLY ESPINOZA D.O. [place] Physici KERRY, ans D.O. Results Test Description Test Time Test Comments Results Result Comments Source MAGNESIUM 2022-05-27 10:48:03 Test Item Value Reference Range Interpretation Comme nts MAGNESIUM (test code = 7822287093) 1.8 mg/dL 1.7-2.4 Lab Interpretation (test code = 53327-7) Normal [facility] (NA, K, CL, CO2, GLUCOSE, BUN, CREATININE, CA)2022-05-27 10:48:02 Test Item Value Reference Range Interpretation Comments NA (test code = 139 mmol/L 135-145 7138954838) K (test code = 3.9 mmol/L 3.5-5 3770029089) CL (test code = 105 mmol/L 98-108 9748550320) CO2 TOTAL (test code = 28 mmol/L 23-31 2677139458) AGAP (test code = 2-16 1386707910) BUN (test code = 6 mg/dL 7-23 L 0043728966) GLUCOSE (test code = 82 mg/dL 70-110 3376655122) CREATININE (test code = 0.62 mg/dL 0.6-1.25 9677102426) CALCIUM (test code = 9.1 mg/dL 8.6-10.6 9716095049) eGFR (test code = mL/min/1.73m2 6106720174) TOR (test code = TOR) Association of [...] tests). Lab Interpretation Abnormal (test code = 74981-8) [facility] with [facility] Infusion)2022-05-27 10:06:40 Test Item Value Reference Range Interpretation Comments APTT Patient (test code See_Comment H [Au tomated message] = 3173-2) The system Polatis generated this result transmitted ref erence range: 26 - 36 Seconds. The reference range was not used to int erpret this result as normal/abnormal . Lab Interpretation (test Abnormal code = 85923-5) [facility]CBC WITHOUT [id number] 09:49:15 Test Item Value Reference Range Interpretation Comments WBC (test code = 6690-2) See_Comment [A utomated message] The system Polatis generated this result transmit zach reference range : 4.20 - 10.70 10*3/?L. The reference range was not used to interpret this result as normal/abnormal . RBC (test code = 789-8) See_Comment [Au tomated message] The system Polatis generated this result transmit zach reference range : 4.26 - 5.52 10* 6/?L. The reference r yo was not used to interpret this result as normal/abnormal . HGB (test code = 718-7) 12.7 g/dL 12.2-16.4 HCT (test code = 4544-3) 41.4 % 38.4-49.3 MCH (test code = 785-6) 24.4 pg 26.1-32.7 L MCV (test code = 787-2) 79.6 fL 81.7-95.6 L MCHC (test code = 786-4) 30.7 g/dL 31.2-35 L PLT (test code = 777-3) See_Comment [Au tomated message] The system Polatis generated this result transmit zach reference range : 150 - 328 10*3/?L. The reference range was not used to interpret this result as normal/abnormal . MPV (test code = 8.9 fL 9.8-13 L 49280-4) RDW-CV (test code = 17.7 % 12.1-15.4 H 788-0) RDW-SD (test code = 50.4 fL 38.5-51.6 27459-1) NRBC x10^3 (test code = See_Comment [Au tomated message] 4456446082) The system Polatis generated this result transmit zach reference range : 10*3/?L. The reference range was not used to interpret this result as normal/abnormal . NRBC/100 WBC (test code See_Comment [Au tomated message] = 7589022485) The system Konoz generated this result transmit zach reference range : 0.0 - 10.0 /100 WBC s. The reference r yo was not used to interpret this result as normal/abnormal . IPF % (test code = 4476181287) Lab Interpretation (test Abnormal code = 76545-0) [facility] (for use with Heparin Infusion)2022-05-27 02:22:26 Test Item Value Reference Range Interpretation Comments APTT Patient (test code See_Comment H [Au tomated message] = 3173-2) The system Polatis generated this result transmitted ref erence range: 26 - 36 Seconds. The reference range was not used to int erpret this result as normal/abnormal . Lab Interpretation (test Abnormal code = 71555-5) [facility] (for use with Heparin Infusion)2022-05-26 12:45:43 Test Item Value Reference Range Interpretation Comments APTT Patient (test code See_Comment H [Au tomated message] = 3173-2) The system Polatis generated this result transmitted ref erence range: 26 - 36 Seconds. The reference range was not used to int erpret this result as normal/abnormal . Lab Interpretation (test Abnormal code = 42085-6) [facility] METABOLIC PANEL (NA, K, CL, CO2, GLUCOSE, BUN, CREATININE, CA)2022-05-26 07:46:47 Test Item Value Reference Range Interpretation Comments NA (test code = 137 mmol/L 135-145 7937702937) K (test code = 3.5 mmol/L 3.5-5 8295117079) CL (test code = 103 mmol/L 98-108 1417223387) CO2 TOTAL (test code = 30 mmol/L 23-31 2252395908) AGAP (test code = 2-16 7517244372) BUN (test code = 10 mg/dL 7-23 2021375469) GLUCOSE (test code = 121 mg/dL 70-110 H 6129940211) CREATININE (test code = 0.73 mg/dL 0.6-1.25 1682039588) CALCIUM (test code = 8.3 mg/dL 8.6-10.6 L 0677865526) eGFR (test code = mL/min/1.73m2 7739951770) TOR (test code = TOR) Association of [...] tests). Lab Interpretation Abnormal (test code = 57928-8) [facility]2022-07-08 07:46:47 Test Item Value Reference Range Interpretation Comments MAGNESIUM (test code = 9160040183) 1.9 mg/dL 1.7-2.4 Lab Interpretation (test code = Normal 34530-0) [facility]fusion[facility]2022-05-26 07:27:48 Test Item Value Reference Range Interpretation Comments APTT Patient (test code See_Comment H [Au tomated message] = 2343-2) The system Cortexa h generated this result transmitted ref erence range: 26 - 36 Seconds. The reference range was not used to int erpret this result as normal/abnormal . Lab Interpretation (test Abnormal code = 90148-7) [facility] WITH [id number] 07:16:47 Test Item Value Reference Range Interpretation Comments WBC (test code = See_Comment [Automated 6690-2) message] The sy stem which generated this [...] as normal/abnormal . HGB (test code = 12.1 g/dL 12.2-16.4 L 718-7) HCT (test code = 38.6 % 38.4-49.3 4544-3) MCV (test code = 79.6 fL 81.7-95.6 L 787-2) MCH (test code = 24.9 pg 26.1-32.7 L 785-6) MCHC (test code = 31.3 g/dL 31.2-35 786-4) RDW-SD (test code = 50.2 fL 38.5-51.6 71393-7) RDW-CV (test code = 17.3 % 12.1-15.4 H 788-0) PLT (test code = See_Comment [Automated 777-3) message] The sy stem which generated this result transmitted reference range : 150 - 328 10*3/ ?L. The reference r yo was not used to interpret this result as normal/abnormal . MPV (test code = 8.8 fL 9.8-13 L 91044-9) NRBC/100 WBC (test See_Comment [Automat ed code = 2232609195) message] The system which generated this result transmitted reference range : 0.0 - 10.0 /100 WBCs. The refer ence range was not u sed to interpret th is result as normal/abnormal . NRBC x10^3 (test code See_Comment [Auto mated = 1009103418) message] The s ystem which generated this result transmitted reference range : 10*3/?L. The reference range was not used to interpret this result as normal/abnormal . GRAN MAT (NEUT) % 34.4 % (test code = 770-8) IMM GRAN % (test code 0.30 % = 2782711654) LYMPH % (test code = 50.3 % 736-9) MONO % (test code = 9.4 % 5905-5) EOS % (test code = 5.1 % 713-8) BASO % (test code = 0.5 % 706-2) GRAN MAT x10^3(ANC) 2.65 10*3/uL 1.99-6.95 (test code = 3998499738) IMM GRAN x10^3 (test 0-0.06 code = 2893445745) LYMPH x10^3 (test code 3.87 10*3/uL 1.09-3.23 H = 731-0) MONO x10^3 (test code 0.72 10*3/uL 0.36-1.02 = 742-7) EOS x10^3 (test code = 0.39 10*3/uL 0.06-0.53 711-2) BASO x10^3 (test code 0.04 10*3/uL 0.01-0.09 = 704-7) Lab Interpretation Abnormal (test code = 98832-9) [facility] with [facility] Infusion[facility]2022-05-25 18:56:58 Test Item Value Reference Range Interpretation Comments APTT Patient (test code See_Comment H [Au tomated message] = 3173-2) The system Cortexa h generated this result transmitted ref erence range: 26 - 36 Seconds. The reference range was not used to int erpret this result as normal/abnormal . Lab Interpretation (test Abnormal code = 32864-0) [facility] Hospital[facility]an[facility] echo (TTE)2022-05-25 17:29:20 Test Item Value Reference Range Interpretation Comments Height (test code = in 8780087680) Weight (test code = lbs 8376919195) Systolic BP (test code mmHg = 4204130277) Diastolic BP (test mmHg code = 4283261518) Heart Rate (test code bpm = 5258079281) LVOT stroke volume 52.70 cm3 (test code = 9947215634) EF(Teich) (test code = 48.50 % 1114078102) LVIDD (test code = 4.30 cm 1383913219) LVIDS (test code = 3.30 cm 6204048933) IVS (test code = 1.11 cm 4925180252) LVPWD (test code = 1.12 cm 4880672120) LVOT diameter (test 1.91 cm code = 4017283698) FS (test code = 24 % 7760782158) MV Peak E Elena (test 144.8 cm/s code = 9975479332) MV Peak A Elena (test 120.0 cm/s code = 8917641646) E/A ratio (test code = ratio 1693812655) E wave decelartion 0.31 s time (test code = 4881775257) LA volume (BP) (test 44.7 mL code = 6643372534) LVOT peak elena (test 110.1 cm/s code = 1133259153) LVOT mn grad (test mmHg code = 3506111990) LA size (test code = 3.1 cm 5292047735) LAV(MOD-sp2) (test 46.60 mL code = 0316807892) LAV(MOD-sp4) (test 37.90 mL code = 5363819604) Tapse (test code = 1.60 cm 4018043973) Aortic valve mean Invalid cm/s velocity (test code = 6615522631) Ao peak elena (test code 112.5 cm/s = 2422462128) Ao VTI (test code = Invalid cm 3420425505) AV LVOT peak gradient mmHg (test code = 4735711325) LVOT peak VTI (test 18.3 cm code = 7120289203) AV area peak elena (test 2.8 cm2 code = 6419997420) LV V1 mean (test code 73.20 cm/s = 1323480386) Ao max PG (test code = 5.10 mm[Hg] 5085063912) MV Prop V (test code = 58.30 cm/s 4465066450) TR Peak Elena (test code 206.1 cm/s = 5627841009) Triscuspid Valve mmHg Regurgitation Peak Gradient (test code = 5082689007) Ao root annulus (test 3.4 cm code = 9781279146) Ao root diam (test 3.40 cm code = 4502181979) AV peak gradient (test mmHg code = 7632200413) AV mean gradient (test Invalid mmHg code = 7796833027) Aortic root (test code 3.4 cm = 0109163729) PW (test code = 1.12 cm 0.6-1.6 2849421425) EF - 2D (test code = 48.50 % 33515442) Interventricular 1.11 cm Septum Diastolic Thickness by 2D (test code = 8476004) LA Volume Index (BP) 22.7 mL/m2 (test code = 3209971162) BSA (test code = 1.97 m2 0733687980) MV mean gradient (test mmHg code = 6630705215) MV valve area by 1.40 cm2 continuity eq (test code = 2627484476) MV VTI (test code = 37.6 cm 0085982591) MV V2 mean (test code 107.90 cm/s = 9206856501) MV peak gradient (test mmHg code = 1877617741) MV pk elena (test code = 156.9 cm/s 0581564340) LV Diastolic Volume 110.2 mL (BP) (test code = 6628113358) EF(MOD-bp) (test code 43.90 % = 9602010431) LV Systolic Volume 61.8 mL (BP) (test code = 6093329428) SV(MOD-bp) (test code 48.40 mL = 6832123734) EF (test code = 44 % 2455607875) Left Ventricular 48.4 mL Stroke Volume by 2-D Biplane-MOD (test code = 9754921) Radiology Study observation (narrative) (test code = 02293-8) TOR (test code = TOR) ?Left?Ventricle: Left ventricle size is normal ( LVD volume index is 56 ml/m2. LV mass 166 g, LVMI 85 g/m2 with RWT 0.52, Indicates concentric remodeling of LV. ?Normal wall thickness. Mild global hypokinesis present. Regional wall motion changes with more marked distal anteroseptal/inferosepta l and apical hypokinesis. Mildly to moderately reduced systolic function with a visually estimated EF of 35 - 40%. EF by 2D Giles biplane is 44 %. Septal flattening noted during diastole. ?Right?Ventricle: Mildly reduced systolic function. Right ventricular systolic pressure is 30-35 mmHg ( This may not be accute as patient is intubated) ?RA pressure is 10-15 mmHg. ?Mitral?Valve: Bioprosthetic valve that is well-seated. Normal prosthetic gradient, MV DVI 2.0 (<2.2). Left VentricleLeft ventricle size is normal ( LVD volume index is 56 ml/m2. LV mass 166 g, LVMI 85 g/m2 with RWT 0.52, Indicates concentric remodeling of LV. Normal wall thickness. Mild global hypokinesis present. Regional wall motion changes with more marked distal anteroseptal/inferosepta l and apical hypokinesis. Mildly to moderately reduced systolic function with a visually estimated EF of 35 - 40%. EF by 2D Giles biplane is 44 %. Septal flattening noted during diastole.Right VentricleRight ventricle size is normal. Mildly reduced systolic function.Left AtriumLeft atrium size is normal. Left atrium volume index is 22.7 mL/m2.Right AtriumRight atrium size is normal.IVC/SVCIVC diameter is greater than 21 mm and decreases less than 50% during inspiration; therefore the estimated right atrial pressure is elevated (~15 mmHg). Off note, patient is intubated.Mitral ValveBioprosthetic valve that is well-seated and functioning. Trace transvalvular regurgitation. Normal prosthetic gradient, MV DVI 2.0 (<2.2)Tricuspid ValveTricuspid valve structure is normal. Trace transvalvular regurgitation. Right ventricular systolic pressure is 30-35 mmHg ( This may not be accute as patient is on ventilation) RA pressure is 10-15 mmHg.Aortic ValveAortic valve structure is normal.Pulmonic ValveNot well visualized.Ascending AortaAorta is normal in size.PericardiumThe pericardium is normal.Study DetailsStudy quality was good. A complete echocardiogram was performed using 2D, color flow Doppler and spectral Doppler. The apical, parasternal and subcostal views were obtained. Lumason ultrasound enhancing agent used. [facility] [id number] 17:23:52 Test Item Value Reference Interpretation Comments Range TROPONIN I (test 0.139 ng/mL See_Comment H [Automated code = 2240787454) message] The system which generated this result transmitted reference range : <=0.034. The reference range was not used to interpret this result as normal/abnormal . TOR (test code = Reference (Normal) TOR) Range (defined by the 99th percentile reference limit): <= 0.034 ng/mL Note: Cardiac troponin begins to rise 3-4 hours after the onset of ischemia. Repeat in 4-6 hours if the sample was drawn within 3-4 hours of the onset of the symptom and found normal. Diagnosis of myocardial injury is made with acute changes in cTn concentrations with at least one serial sample above the 99th percentile upper reference limit (URL), taken together with the patient's clinical presentation. Biotin has been reported to cause a negative bias, interpret results relative to patient's use of biotin. Lab Interpretation Abnormal (test code = 43897-4) [facility] [id number] 12:28:52 Test Item Value Reference Interpretation Comments Range TROPONIN I (test 0.175 ng/mL See_Comment H [Automated code = 9539359121) message] The system which generated this result transmitted reference range : <=0.034. The reference range was not used to interpret this result as normal/abnormal . TOR (test code = Reference (Normal) TOR) Range (defined by the 99th percentile reference limit): <= 0.034 ng/mL Note: Cardiac troponin begins to rise 3-4 hours after the onset of ischemia. Repeat in 4-6 hours if the sample was drawn within 3-4 hours of the onset of the symptom and found normal. Diagnosis of myocardial injury is made with acute changes in cTn concentrations with at least one serial sample above the 99th percentile upper reference limit (URL), taken together with the patient's clinical presentation. Biotin has been reported to cause a negative bias, interpret results relative to patient's use of biotin. Lab Interpretation Abnormal (test code = 34670-6) [facility] HospitalLactate [id number] 12:11:11 Test Item Value Reference Range Interpretation Comments LDH (test code = 2434495457) 224 U/L 120-246 Lab Interpretation (test code = Normal 93222-8) [facility] HospitalProthrombin Time / [id number] 12:05:30 Test Item Value Reference Range Interpretation Comments PROTIME PATIENT (test See_Comment H [Auto mated message] code = 5964-2) The system wh ich generated this result transmitted ref erence range: 10.1 - 1 2.6 Seconds. The reference range was not used to int erpret this result as normal/abnormal . INR (test code = 6301-6) Nor mal INR <1.1; Warfarin Therap eutic range 2.0 to 3. 0 or 2.5 to 3.5, dep ending upon the indica tions. Lab Interpretation (test Abnormal code = 43139-7) [facility] HospitalACTIVATED PARTIAL THRMPLAS [id number] 12:05:30 Test Item Value Reference Range Interpretation Comments APTT Patient (test code = See_Comment [ Automated message] 3173-2) The system whic h generated this result transmitted ref erence range: 26 - 36 Seconds. The re ference range was not u sed to interpret this result as normal/abnor mal. Lab Interpretation (test Normal code = 44540-1) [facility] HospitalAC PAN[facility] 21 + LACTIC [id number] 11:30:40 Test Item Value Reference Range Interpretation Comments PH (test code = 7.32-7.42 3048699800) PCO2 TAL (test code = See_Comment [Auto mated 2054501201) message] The sy stem which generated this result transmitted reference range : 41 - 51 mmHg. The reference range was not used to interpret this result as normal/abnormal . PO2 TAL (test code = See_Comment [Autom ated 6875678853) message] The sy stem which generated this result transmitted reference range : 25 - 40 mmHg. The reference range was not used to interpret this result as normal/abnormal . HCO3 TAL (test code = See_Comment [Auto mated 6408672527) message] The sy stem which generated this result transmitted reference range : 24 - 28 mEq/L. The reference range was not used to interpret this result as normal/abnormal . AC VBE(BEAKER) (test mEq/L code = 7932574854) THB TAL (test code = 13.7 g/dL 13.5-18 2107691860) %O2HB TAL (test code = 68.9 % 52-63 H 1306095834) %COHB TAL (test code = 1.2 % 0-1.5 4210698548) %METHB TAL (test code = 0.1 % 0.4-1.5 L 1843171055) VOL%O2 TAL (test code = 13.2 % 6-12 H 7488703122) NA (test code = 135 mmol/L 135-145 9484562286) K+ (test code = 4.4 mmol/L 3.5-5 4762119354) AC CA IONZ (test code = 4.60 mg/dL 4.5-5.3 3895536513) GLUCOSE (test code = 91 mg/dL 70-110 0699501236) LACTIC ACID (test code 1.73 mmol/L 0.5-2.2 = 9293631358) Lab Interpretation Abnormal (test code = 02383-0) [facility] HospitalSALICYLATE2022-07-07 10:25:21 SALICYLATE<10mg/L05/25/2022 5:25 AM [facility] LABORATORYTherapeutic Range: ? Analgesic and Antipyretic Use ? 20- 100 mg/L ? ? Anti-Inflammatory Use ? 100-250 mg/L Toxic Range: ? Greater than 300 mg/LUn[facility] [id number] 09:06:27 Test Item Value Reference Range Interpretation Comments FREE T4 (test code = See_Comment [Autom ated message] 1275479830) The system Polatis generated this result transmitted ref erence range: 0.78 - 2 .20 ng/dL:. The ref erence range was not u sed to interpret this result as normal/abnor mal. Lab Interpretation (test Normal code = 55939-2) [facility] HospitalCREATINE [id number] 08:48:48 Test Item Value Reference Range Interpretation Comments CK (test code = 4017792295) 128 U/L 33-194 Lab Interpretation (test code = Normal 70297-3) [facility] HospitalTHYROID STIMULATING [id number] 06:48:55 Test Item Value Reference Range Interpretation Comments TSH (test code = See_Comment [Automated message] 9649561101) The system Polatis generated this result transmitted ref erence range: 0.45 - 4 .70 mIU/L. The refe rence range was not u sed to interpret this result as normal/abnor mal. Lab Interpretation (test Normal code = 97103-3) [facility] WITH [id number] 06:33:20 Test Item Value Reference Range Interpretation Comments WBC (test code = See_Comment H [Automated 4119-2) message] The system which generated this result transmit zach reference range : 4.20 - 10.70 10*3/?L. The reference range was not used to interpret this result as normal/abnormal . RBC (test code = See_Comment [Automated 249-8) message] The system which generated this result transmit zach reference range : 4.26 - 5.52 10*6/?L. The reference range was not used to interpret this result as normal/abnormal . HGB (test code = 13.4 g/dL 12.2-16.4 718-7) HCT (test code = 46.5 % 38.4-49.3 4544-3) MCV (test code = 86.6 fL 81.7-95.6 787-2) MCH (test code = 25.0 pg 26.1-32.7 L 785-6) MCHC (test code = 28.8 g/dL 31.2-35 L 786-4) RDW-SD (test code = 55.2 fL 38.5-51.6 H 85400-4) RDW-CV (test code = 18.0 % 12.1-15.4 H 788-0) PLT (test code = See_Comment H [Automated 237-3) message] The system which generated this result transmit zach reference range : 150 - 328 10*3/ ?L. The reference range was not u sed to interpret th is result as normal/abnormal . MPV (test code = 8.8 fL 9.8-13 L 39365-5) NRBC/100 WBC (test See_Comment [Automat ed code = [id number]) message] The system which generated this result transmit zach reference range : 0.0 - 10.0 /100 WBCs. The reference range was not used to interpret this result as normal/abnormal . NRBC x10^3 (test code See_Comment [Auto mated = 9573211656) message] The system which generated this result transmit zach reference range : 10*3/?L. The reference range was not used to interpret this result as normal/abnormal . GRAN MAT (NEUT) % 64.9 % (test code = 770-8) IMM GRAN % (test code 1.00 % = 4346316987) LYMPH % (test code = 25.2 % 736-9) MONO % (test code = 6.9 % 5905-5) EOS % (test code = 1.6 % 713-8) BASO % (test code = 0.4 % 706-2) GRAN MAT x10^3(ANC) 12.45 10*3/uL 1.99-6.95 H (test code = 1885717290) IMM GRAN x10^3 (test 0.19 10*3/uL 0-0.06 H code = 5177683076) LYMPH x10^3 (test code 4.83 10*3/uL 1.09-3.23 H = 731-0) MONO x10^3 (test code 1.32 10*3/uL 0.36-1.02 H = 742-7) EOS x10^3 (test code = 0.31 10*3/uL 0.06-0.53 711-2) BASO x10^3 (test code 0.08 10*3/uL 0.01-0.09 = 704-7) BANDS (test code = Increased A 4202399221) REACT LYMPHS (test Rare code = 6935569549) Lab Interpretation Abnormal (test code = 18368-1) [facility] [id number] 06:30:28 Test Item Value Reference Interpretation Comments Range TROPONIN I (test 0.069 ng/mL See_Comment H [Automated code = 1257156393) message] The system which generated this result transmitted reference range : <=0.034. The reference range was not used to interpret this result as normal/abnormal . TOR (test code = Reference (Normal) TOR) Range (defined by the 99th percentile reference limit): <= 0.034 ng/mL Note: Cardiac troponin begins to rise 3-4 hours after the onset of ischemia. Repeat in 4-6 hours if the sample was drawn within 3-4 hours of the onset of the symptom and found normal. Diagnosis of myocardial injury is made with acute changes in cTn concentrations with at least one serial sample above the 99th percentile upper reference limit (URL), taken together with the patient's clinical presentation. Biotin has been reported to cause a negative bias, interpret results relative to patient's use of biotin. Lab Interpretation Abnormal (test code = 92484-8) [facility] [id number] 06:27:33 Test Item Value Reference Range Interpretation Comments NT-proBNP (test code 890 pg/mL See_Comment H [Autom ated = 7474649217) message] The system which generated this result transmitted reference range : <=125. The reference range was not used to interpret this result as normal/abnormal . TOR (test code = TOR) Biotin has been reported to cause a negative bias, interpret results relative to patient's use of biotin. Lab Interpretation Abnormal (test code = 66526-1) [facility]ETHANOL[facility] 06:22:52 ALCOHOL<10mg/dL05/25/2022 1:22 AM [facility]<10 [id number] Toxic>100 Depression of DIRECTOR SEMICONDUCTOR>400 Fatalities ReportedUnMethodist [facility] CenterACETAMINOPHEN2022-07-07 06:22:41 Test Item Value Reference Range Interpretation Comments ACETAMINOP (test code = 10-30 L 9734551375) TOR (test code = TOR) Toxic: Greater than 200 ug/mL @ 4 hour post ingestion or greater than 50 ug/mL @ 12 hour post ingestion Lab Interpretation (test Abnormal code = 26714-3) [facility]UM2022-[facility]-07 06:18:50 Test Item Value Reference Range Interpretation Comments MAGNESIUM (test code = 3538317255) 2.9 mg/dL 1.7-2.4 H Lab Interpretation (test code = Abnormal 34393-6) [facility]. METABOLIC PANEL (24918)2022-05-25 06:18:49 Test Item Value Reference Range Interpretation Comments NA (test code = 136 mmol/L 135-145 5419500382) K (test code = 4.7 mmol/L 3.5-5 9091130310) CL (test code = 95 mmol/L 98-108 L 0680651519) CO2 TOTAL (test code = 23 mmol/L 23-31 7258390467) AGAP (test code = 2-16 H 9045818062) BUN (test code = 12 mg/dL 7-23 0467257240) GLUCOSE (test code = 174 mg/dL 70-110 H 7644254638) CREATININE (test code = 1.35 mg/dL 0.6-1.25 H 6635548605) TOTAL BILI (test code = 0.4 mg/dL 0.1-1.0 6534315641) CALCIUM (test code = 9.8 mg/dL 8.6-10.6 8610529809) T PROTEIN (test code = 8.0 g/dL 6.3-8.2 0436908497) ALBUMIN (test code = 5.4 g/dL 3.5-5 H 2341149407) ALK PHOS (test code = 101 U/L 34-122 2178736741) ALTv (test code = 32 U/L 5-50 1742-6) AST(SGOT) (test code = 47 U/L 13-40 H 6385574313) eGFR (test code = mL/min/1.73m2 5264562840) TOR (test code = TOR) Association of [...] tests). Lab Interpretation Abnormal (test code = 84222-0) [facility] HospitalLIPASE20[facility] 06:18:09 Test Item Value Reference Range Interpretation Comments LIPASE (test code = 8523095132) 50 U/L 0-220 Lab Interpretation (test code = Normal 09091-3) [facility] HospitalACTIVATED PARTIAL THRMPLAS [id number] 06:08:06 Test Item Value Reference Range Interpretation Comments APTT Patient (test See_Comment [Automat ed code = 3173-2) message] The system which generated this result transmitted reference range : 23 - 38 Seconds . The reference range was not used to interpr et this result as normal/abnormal . TOR (test code = TOR) The [facility] patient population mean normal value for aPTT is 30 seconds. Lab Interpretation Normal (test code = 63037-0) [facility] HospitalPROTHROMBIN TIME / [id number] 06:06:11 Test Item Value Reference Range Interpretation Comments PROTIME PATIENT (test See_Comment [Auto mated message] code = 5964-2) The system wh ich generated this result transmitted ref erence range: 12.0 - 1 4.7 Seconds. The re ference range was not u sed to interpret this result as normal/abnor mal. INR (test code = 6301-6) Nor mal INR <1.1; Warfarin Therap eutic range 2.0 to 3. 0 or 2.5 to 3.5, dep ending upon the indica tions. Lab Interpretation (test Normal code = 12310-4) [facility] 12 [id number] 15:10:13 Test Item Value Reference Range Interpretation Comments Ventricular rate (test code = 253) Atrial rate (test code = 255) VA interval (test code = 266) QRSD interval (test code = 260) QT interval (test code = 264) QTC interval (test code = 265) P axis 1 (test code = 267) QRS axis 1 (test code = 268) T wave axis (test code = 270) EKG impression (test Normal sinus code = 273) chxfzm-Gyv-xorvjvsy change in ST segment in-Abnormal ECG-In automated comparison with ECG of 13-APR-2022 14:23,-Nonspecific T wave abnormality now evident in Anterior leads- [place] [address] [id number] 15:10:13 Test Item Value Reference Range Interpretation Comments Ventricular rate (test code = 253) Atrial rate (test code = 255) VA interval (test code = 266) QRSD interval (test code = 260) QT interval (test code = 264) QTC interval (test code = 265) P axis 1 (test code = 267) QRS axis 1 (test code = 268) T wave axis (test code = 270) EKG impression (test Normal sinus code = 273) etpfje-Llh-fyqblrrd change in ST segment in-Abnormal ECG-In automated comparison with ECG of 13-APR-2022 14:23,-Nonspecific T wave abnormality now evident in Anterior leads- [facility] HospitalAF[facility] + smear (non-sputum)2022-04-21 09:27:43 Test Item Value Reference Range Interpretation Comments Result (test code = No acid-fast bacilli 6463-4) isolated in 42 days AFB Smear (test code = No acid fast bacilli 07442-9) [facility]2022-04-21 09:27:43 Test Item Value Reference Range Interpretation Comments Result (test code = No acid-fast bacilli 6463-4) isolated in 42 days AFB Smear (test code = No acid fast bacilli 46770-5) [facility]UT[facility]2022-04-21 09:27:43 Test Item Value Reference Range Interpretation Comments CULTURE (BEAKER) (test No acid-fast bacilli code = 1095) isolated in 42 days AFB SMEAR (BEAKER) No acid fast bacilli (test code = 994) seen AFB CULTURE + SMEAR (NON-SPUTUM)2022-04-21 09:27:43 Test Item Value Reference Range Interpretation Comments CULTURE (BEAKER) (test No acid-fast bacilli code = 1095) isolated in 42 days AFB SMEAR (BEAKER) No acid fast bacilli (test code = 994) seen Fungus culture + [id number] 16:57:35 Test Item Value Reference Range Interpretation Comments Result (test code = No fungus isolated in 6463-4) 28 days Fungus Smear (test No fungi seen code = 1406) [facility] + [id number] 16:57:35 Test Item Value Reference Range Interpretation Comments Result (test code = No fungus isolated in 6463-4) 28 days Fungus Smear (test No fungi seen code = 1406) [facility] + [id number] 16:57:35 Test Item Value Reference Range Interpretation Comments CULTURE (BEAKER) (test No fungus isolated in code = 1095) 28 days FUNGUS SMEAR (BEAKER) No fungi seen (test code = 1406) FUNGUS CULTURE + [id number] 16:57:35 Test Item Value Reference Range Interpretation Comments CULTURE (BEAKER) (test No fungus isolated in code = 1095) 28 days FUNGUS SMEAR (BEAKER) No fungi seen (test code = 1406) [id number] 06:09:26 Test Item Value Reference Range Interpretation Comments MAGNESIUM (BEAKER) (test code = 2.3 mg/dL 1.6-2.6 627) Fluid Power Mechanic ID - BSBASIC METABOLIC [id number] 06:09:25 Test Item Value Reference Range Interpretation Comments SODIUM (BEAKER) 139 meq/L 136-145 (test code = 381) POTASSIUM (BEAKER) 4.1 meq/L 3.5-5.1 (test code = 379) CHLORIDE (BEAKER) 103 meq/L 98-107 (test code = 382) CO2 (BEAKER) (test 29 meq/L 22-29 code = 355) BLOOD UREA NITROGEN 24 mg/dL 7-21 H (BEAKER) (test code = 354) CREATININE (BEAKER) 0.71 mg/dL 0.57-1.25 (test code = 358) GLUCOSE RANDOM 91 mg/dL 70-105 (BEAKER) (test code = 652) CALCIUM (BEAKER) 9.8 mg/dL 8.4-10.2 (test code = 697) EGFR (BEAKER) (test 137 mL/min/1.73 ESTIM ATED GFR IS code = 1092) sq m NOT ACCURATE CREATININE CLEARANCE IN PREDICTING GLOMERULAR FILTRATION RATE . ESTIMATED GFR I S NOT APPLICABLE FOR DIALYSIS PATIEN TS. Fluid Power Mechanic ID - BSCBC (HEMOGRAM ONLY)2022-03-30 05:42:06 Test Item Value Reference Range Interpretation Comments WHITE BLOOD CELL COUNT (BEAKER) 9.2 K/ L 3.5-10.5 (test code = 775) RED BLOOD CELL COUNT (BEAKER) 4.80 M/ L 4.63-6.08 (test code = 761) HEMOGLOBIN (BEAKER) (test code = 12.2 GM/DL 13.7-17.5 L 410) HEMATOCRIT (BEAKER) (test code = 39.8 % 40.1-51.0 L 411) MEAN CORPUSCULAR VOLUME (BEAKER) 82.9 fL 79.0-92.2 (test code = 753) MEAN CORPUSCULAR HEMOGLOBIN 25.4 pg 25.7-32.2 L (BEAKER) (test code = 751) MEAN CORPUSCULAR HEMOGLOBIN CONC 30.7 GM/DL 32.3-36.5 L (BEAKER) (test code = 752) RED CELL DISTRIBUTION WIDTH 17.1 % 11.6-14.4 H (BEAKER) (test code = 412) PLATELET COUNT (BEAKER) (test 396 K/CU MM 150-450 code = 756) MEAN PLATELET VOLUME (BEAKER) 8.6 fL 9.4-12.4 L (test code = 754) NUCLEATED RED BLOOD CELLS 0 /100 WBC 0-0 (BEAKER) (test code = 413) [id number] 07:33:38 Test Item Value Reference Range Interpretation Comments MAGNESIUM (BEAKER) (test code = 2.3 mg/dL 1.6-2.6 627) Fluid Power Mechanic ID - BSBASIC METABOLIC [id number] 07:33:37 Test Item Value Reference Range Interpretation Comments SODIUM (BEAKER) 140 meq/L 136-145 (test code = 381) POTASSIUM (BEAKER) 4.1 meq/L 3.5-5.1 (test code = 379) CHLORIDE (BEAKER) 106 meq/L 98-107 (test code = 382) CO2 (BEAKER) (test 25 meq/L 22-29 code = 355) BLOOD UREA NITROGEN 18 mg/dL 7-21 (BEAKER) (test code = 354) CREATININE (BEAKER) 0.71 mg/dL 0.57-1.25 (test code = 358) GLUCOSE RANDOM 92 mg/dL 70-105 (BEAKER) (test code = 652) CALCIUM (BEAKER) 9.7 mg/dL 8.4-10.2 (test code = 697) EGFR (BEAKER) (test 137 mL/min/1.73 ESTIM ATED GFR IS code = 1092) sq m NOT ACCURATE CREATININE CLEARANCE IN PREDICTING GLOMERULAR FILTRATION RATE . ESTIMATED GFR I S NOT APPLICABLE FOR DIALYSIS PATIEN TS. Fluid Power Mechanic ID - BSCBC (HEMOGRAM ONLY)2022-03-28 06:40:03 Test Item Value Reference Range Interpretation Comments WHITE BLOOD CELL COUNT (BEAKER) 8.5 K/ L 3.5-10.5 (test code = 775) RED BLOOD CELL COUNT (BEAKER) 4.76 M/ L 4.63-6.08 (test code = 761) HEMOGLOBIN (BEAKER) (test code = 12.0 GM/DL 13.7-17.5 L 410) HEMATOCRIT (BEAKER) (test code = 39.7 % 40.1-51.0 L 411) MEAN CORPUSCULAR VOLUME (BEAKER) 83.4 fL 79.0-92.2 (test code = 753) MEAN CORPUSCULAR HEMOGLOBIN 25.2 pg 25.7-32.2 L (BEAKER) (test code = 751) MEAN CORPUSCULAR HEMOGLOBIN CONC 30.2 GM/DL 32.3-36.5 L (BEAKER) (test code = 752) RED CELL DISTRIBUTION WIDTH 17.2 % 11.6-14.4 H (BEAKER) (test code = 412) PLATELET COUNT (BEAKER) (test 445 K/CU MM 150-450 code = 756) MEAN PLATELET VOLUME (BEAKER) 8.5 fL 9.4-12.4 L (test code = 754) NUCLEATED RED BLOOD CELLS 0 /100 WBC 0-0 (BEAKER) (test code = 413) BASIC METABOLIC [id number] 06:37:43 Test Item Value Reference Range Interpretation Comments SODIUM (BEAKER) 140 meq/L 136-145 (test code = 381) POTASSIUM (BEAKER) 4.0 meq/L 3.5-5.1 (test code = 379) CHLORIDE (BEAKER) 103 meq/L 98-107 (test code = 382) CO2 (BEAKER) (test 27 meq/L 22-29 code = 355) BLOOD UREA NITROGEN 25 mg/dL 7-21 H (BEAKER) (test code = 354) CREATININE (BEAKER) 0.73 mg/dL 0.57-1.25 (test code = 358) GLUCOSE RANDOM 86 mg/dL 70-105 (BEAKER) (test code = 652) CALCIUM (BEAKER) 10.1 mg/dL 8.4-10.2 (test code = 697) EGFR (BEAKER) (test 133 mL/min/1.73 ESTIM ATED GFR IS code = 1092) sq m NOT ACCURATE CREATININE CLEARANCE IN PREDICTING GLOMERULAR FILTRATION RATE . ESTIMATED GFR I S NOT APPLICABLE FOR DIALYSIS PATIEN TS. Fluid Power Mechanic ID - ADRIENNE [id number] 06:02:38 Test Item Value Reference Range Interpretation Comments MAGNESIUM (BEAKER) (test code = 2.2 mg/dL 1.6-2.6 627) Fluid Power Mechanic ID - ADRIENNE LCBC (HEMOGRAM ONLY)2022-03-26 05:38:14 Test Item Value Reference Range Interpretation Comments WHITE BLOOD CELL COUNT (BEAKER) 8.2 K/ L 3.5-10.5 (test code = 775) RED BLOOD CELL COUNT (BEAKER) 4.54 M/ L 4.63-6.08 L (test code = 761) HEMOGLOBIN (BEAKER) (test code = 11.5 GM/DL 13.7-17.5 L 410) HEMATOCRIT (BEAKER) (test code = 37.8 % 40.1-51.0 L 411) MEAN CORPUSCULAR VOLUME (BEAKER) 83.3 fL 79.0-92.2 (test code = 753) MEAN CORPUSCULAR HEMOGLOBIN 25.3 pg 25.7-32.2 L (BEAKER) (test code = 751) MEAN CORPUSCULAR HEMOGLOBIN CONC 30.4 GM/DL 32.3-36.5 L (BEAKER) (test code = 752) RED CELL DISTRIBUTION WIDTH 17.2 % 11.6-14.4 H (BEAKER) (test code = 412) PLATELET COUNT (BEAKER) (test 515 K/CU MM 150-450 H code = 756) MEAN PLATELET VOLUME (BEAKER) 8.8 fL 9.4-12.4 L (test code = 754) NUCLEATED RED BLOOD CELLS 0 /100 WBC 0-0 (BEAKER) (test code = 413) 2D Echo W/Doppler(CW/PW/Color)2022-03-26 02:14:29Ejection FractionSLEH ECHO [facility] W/Doppler(CW/PW/Color)2022-03-26 02:14:29Ejection FractionSLE ECHO [facility]OL[facility] [id number] 06:40:25 Test Item Value Reference Range Interpretation Comments SODIUM (BEAKER) 140 meq/L 136-145 (test code = 381) POTASSIUM (BEAKER) 3.2 meq/L 3.5-5.1 L Specimen slightly (test code = 379) hemolyzed CHLORIDE (BEAKER) 111 meq/L 98-107 H (test code = 382) CO2 (BEAKER) (test 21 meq/L 22-29 L code = 355) BLOOD UREA NITROGEN 25 mg/dL 7-21 H (BEAKER) (test code = 354) CREATININE (BEAKER) 0.56 mg/dL 0.57-1.25 L Specimen slightly (test code = 358) hemolyzed GLUCOSE RANDOM 68 mg/dL 70-105 L (BEAKER) (test code = 652) CALCIUM (BEAKER) 7.7 mg/dL 8.4-10.2 L (test code = 697) EGFR (BEAKER) (test 181 mL/min/1.73 ESTIM ATED GFR IS code = 1092) sq m NOT ACCURATE CREATININE CLEARANCE IN PREDICTING GLOMERULAR FILTRATION RATE . ESTIMATED GFR I S NOT APPLICABLE FOR DIALYSIS PATIEN TS. Fluid Power Mechanic ID - CLIVE [id number] 06:34:50 Test Item Value Reference Range Interpretation Comments MAGNESIUM (BEAKER) 1.7 mg/dL 1.6-2.6 Specimen slightly (test code = 627) hemolyzed Fluid Power Mechanic ID - CLIVE GCBC (HEMOGRAM ONLY)2022-03-24 06:26:20 Test Item Value Reference Range Interpretation Comments WHITE BLOOD CELL COUNT (BEAKER) 8.0 K/ L 3.5-10.5 (test code = 775) RED BLOOD CELL COUNT (BEAKER) 4.87 M/ L 4.63-6.08 (test code = 761) HEMOGLOBIN (BEAKER) (test code = 12.2 GM/DL 13.7-17.5 L 410) HEMATOCRIT (BEAKER) (test code = 41.1 % 40.1-51.0 411) MEAN CORPUSCULAR VOLUME (BEAKER) 84.4 fL 79.0-92.2 (test code = 753) MEAN CORPUSCULAR HEMOGLOBIN 25.1 pg 25.7-32.2 L (BEAKER) (test code = 751) MEAN CORPUSCULAR HEMOGLOBIN CONC 29.7 GM/DL 32.3-36.5 L (BEAKER) (test code = 752) RED CELL DISTRIBUTION WIDTH 17.4 % 11.6-14.4 H (BEAKER) (test code = 412) PLATELET COUNT (BEAKER) (test 617 K/CU MM 150-450 H code = 756) MEAN PLATELET VOLUME (BEAKER) 8.4 fL 9.4-12.4 L (test code = 754) NUCLEATED RED BLOOD CELLS 0 /100 WBC 0-0 (BEAKER) (test code = 413) SARS-CoV2/RT-PCR (Asymptomatic ONLY)2022-03-23 02:14:16 Test Item Value Reference Range Interpretation Comments SARS-COV2/RT-PCR (test Negative Negative code = 98264-3) TOR (test code = TOR) Negative result for this test determines that SARS-CoV-2 RNA was not present in the specimen above the Limit of Detection (LOD). However, Negative results do not preclude SARS-CoV-2 infection and should not be used as the sole basis for treatment or patient management decisions. Negative results must be combined with clinical observations, patient history, and epidemiological information. A false negative result may occur if a specimen is improperly collected, transported, or handled. A false negative result should be considered if patient's recent exposures or clinical presentation indicate that COVID-19 (SARS-CoV-2) is likely and diagnostic tests for other causes of illness are negative. Re-testing should be considered in cases of suspected false negatives. The limit of detection for this assay is 100 copies/mL. This SARS-CoV-2 test is a real-time RT_PCR test intended for the qualitative detection of nucleic acid from SARS-CoV-2 in a nasopharyngeal swab specimen collected from individuals suspected of COVID-19 by their healthcare provider. This test has not been Food and Drug Administration (FDA) cleared or approved. This is a modified version of an approved Emergency Use Authorization (EUA) and is in the process of review by the FDA. Once authorized by the FDA, the issued EUA will be effective until the declaration that circumstances exist justifying the authorization of the emergency use of in vitro diagnostic tests for detection and/or diagnosis of COVID-19 is terminated under Section 564(b)(2) of the Act or the EUA is revoked under Section 564(g) of the Act. Testing was performed using the [employer] SARS-CoV-2 assay. Fact Sheet for Healthcare Providers:https://[email or web address] [email or web address]/amanda/RT SARS-CoV-2 HCP Fact Sheet 51-093521.pdf Fact Sheet for Healthcare Patients:[email or web address]://[email or web address]/RT SARS-CoV-2 Patient Fact Sheet EN 51-320339L3.pdf Lab Interpretation Normal (test code = 62481-0) [facility]23 02:14:16 Test Item Value Reference Range Interpretation Comments SARS-COV2/RT-PCR (test Negative Negative code = 67551-2) TOR (test code = TOR) Negative result for this test determines that SARS-CoV-2 RNA was not present in the specimen above the Limit of Detection (LOD). However, Negative results do not preclude SARS-CoV-2 infection and should not be used as the sole basis for treatment or patient management decisions. Negative results must be combined with clinical observations, patient history, and epidemiological information. A false negative result may occur if a specimen is improperly collected, transported, or handled. A false negative result should be considered if patient's recent exposures or clinical presentation indicate that COVID-19 (SARS-CoV-2) is likely and diagnostic tests for other causes of illness are negative. Re-testing should be considered in cases of suspected false negatives. The limit of detection for this assay is 100 copies/mL. This SARS-CoV-2 test is a real-time RT_PCR test intended for the qualitative detection of nucleic acid from SARS-CoV-2 in a nasopharyngeal swab specimen collected from individuals suspected of COVID-19 by their healthcare provider. This test has not been Food and Drug Administration (FDA) cleared or approved. This is a modified version of an approved Emergency Use Authorization (EUA) and is in the process of review by the FDA. Once authorized by the FDA, the issued EUA will be effective until the declaration that circumstances exist justifying the authorization of the emergency use of in vitro diagnostic tests for detection and/or diagnosis of COVID-19 is terminated under Section 564(b)(2) of the Act or the EUA is revoked under Section 564(g) of the Act. Testing was performed using the [employer] SARS-CoV-2 assay. Fact Sheet for Healthcare Providers:https://www.[email or web address] aviles/amanda/RT SARS-CoV-2 HCP Fact Sheet 51-552853.pdf Fact Sheet for Healthcare Patients:[email or web address]://www.[email or web address] [email or web address]/RT SARS-CoV-2 Patient Fact Sheet EN 51-769018I2.pdf Lab Interpretation Normal (test code = 97885-1) [facility]2022-03-23 02:14:16 Test Item Value Reference Range Interpretation Comments SARS-COV2/RT-PCR (test code = Negative Negative 0596149) Negative result for this test determines that SARS-CoV-2 RNA was not present in the specimen above the Limit of Detection (LOD). However, Negative results do not preclude SARS-CoV-2 infection and should not be used as the sole basis for treatment or patient management decisions. Negative results must be combined with clinical observations, patient history, and epidemiological information. A false negative result may occur if a specimen is improperly collected, transported, or handled. A false negative result should be considered if patient's recent exposures or clinical presentation indicate that COVID-19 (SARS-CoV-2) is likely and diagnostic tests for other causes of illness are negative. Re-testing should be considered in cases of suspected false negatives.The limit of detection for this assay is 100 copies/mL.This SARS-CoV-2 test is a real-time RT_PCR test intended for the qualitative detection of nucleic acid from SARS-CoV-2 in a nasopharyngeal swab specimen collected from individuals suspected of COVID-19 by their healthcare provider.This test has not been Food and Drug Administration (FDA) cleared or approved. This is a modified version of an approved Emergency Use Authorization (EUA) and is in the process of review by the FDA. Once authorized by the FDA, the issued EUA will be effective until the declaration that circumstances exist justifying the authorization of the emergency use of in vitro diagnostic tests for detection and/or diagnosis of COVID-19 is terminated under Section 564(b)(2) of the Act or the EUA is revoked under Section 564(g) of the Act.Testing was performed using t St[employer] SARS-CoV-2 assay.Fact Sheet for Healthcare Providers:https://www.[email or web address].valdes/amanda/RT SARS-CoV-2 HCP Fact Sheet 51- 141387.pdfFact Sheet for Healthcare Patients:https://www.molecular.valdes/amanda/RT SARS-CoV-2 Patient Fact Sheet EN 51-994190M7.[id number] 11:48:01 Test Item Value Reference Range Interpretation Comments MAGNESIUM (BEAKER) (test code = 2.3 mg/dL 1.6-2.6 627) Fluid Power Mechanic ID - BSBASIC METABOLIC [id number] 05:47:02 Test Item Value Reference Range Interpretation Comments SODIUM (BEAKER) 138 meq/L 136-145 (test code = 381) POTASSIUM (BEAKER) 4.1 meq/L 3.5-5.1 (test code = 379) CHLORIDE (BEAKER) 101 meq/L 98-107 (test code = 382) CO2 (BEAKER) (test 27 meq/L 22-29 code = 355) BLOOD UREA NITROGEN 24 mg/dL 7-21 H (BEAKER) (test code = 354) CREATININE (BEAKER) 0.65 mg/dL 0.57-1.25 (test code = 358) GLUCOSE RANDOM 83 mg/dL 70-105 (BEAKER) (test code = 652) CALCIUM (BEAKER) 10.0 mg/dL 8.4-10.2 (test code = 697) EGFR (BEAKER) (test 152 mL/min/1.73 ESTIM ATED GFR IS code = 1092) sq m NOT ACCURATE CREATININE CLEARANCE IN PREDICTING GLOMERULAR FILTRATION RATE . ESTIMATED GFR I S NOT APPLICABLE FOR DIALYSIS PATIEN TS. Fluid Power Mechanic ID - CHRIS MCBC (HEMOGRAM ONLY)2022-03-22 05:08:26 Test Item Value Reference Range Interpretation Comments WHITE BLOOD CELL COUNT (BEAKER) 7.5 K/ L 3.5-10.5 (test code = 775) RED BLOOD CELL COUNT (BEAKER) 4.42 M/ L 4.63-6.08 L (test code = 761) HEMOGLOBIN (BEAKER) (test code = 11.1 GM/DL 13.7-17.5 L 410) HEMATOCRIT (BEAKER) (test code = 37.5 % 40.1-51.0 L 411) MEAN CORPUSCULAR VOLUME (BEAKER) 84.8 fL 79.0-92.2 (test code = 753) MEAN CORPUSCULAR HEMOGLOBIN 25.1 pg 25.7-32.2 L (BEAKER) (test code = 751) MEAN CORPUSCULAR HEMOGLOBIN CONC 29.6 GM/DL 32.3-36.5 L (BEAKER) (test code = 752) RED CELL DISTRIBUTION WIDTH 17.5 % 11.6-14.4 H (BEAKER) (test code = 412) PLATELET COUNT (BEAKER) (test 660 K/CU MM 150-450 H code = 756) MEAN PLATELET VOLUME (BEAKER) 8.3 fL 9.4-12.4 L (test code = 754) NUCLEATED RED BLOOD CELLS 0 /100 WBC 0-0 (BEAKER) (test code = 413) BASIC METABOLIC [id number] 05:50:37 Test Item Value Reference Range Interpretation Comments SODIUM (BEAKER) 140 meq/L 136-145 (test code = 381) POTASSIUM (BEAKER) 4.4 meq/L 3.5-5.1 (test code = 379) CHLORIDE (BEAKER) 104 meq/L 98-107 (test code = 382) CO2 (BEAKER) (test 27 meq/L 22-29 code = 355) BLOOD UREA NITROGEN 21 mg/dL 7-21 (BEAKER) (test code = 354) CREATININE (BEAKER) 0.60 mg/dL 0.57-1.25 (test code = 358) GLUCOSE RANDOM 89 mg/dL 70-105 (BEAKER) (test code = 652) CALCIUM (BEAKER) 10.0 mg/dL 8.4-10.2 (test code = 697) EGFR (BEAKER) (test 167 mL/min/1.73 ESTIM ATED GFR IS code = 1092) sq m NOT ACCURATE CREATININE CLEARANCE IN PREDICTING GLOMERULAR FILTRATION RATE . ESTIMATED GFR I S NOT APPLICABLE FOR DIALYSIS PATIEN TS. Fluid Power Mechanic ID - ASHA [id number] 05:50:37 Test Item Value Reference Range Interpretation Comments MAGNESIUM (BEAKER) (test code = 2.2 mg/dL 1.6-2.6 627) Fluid Power Mechanic ID Christopher BARRY WCBC (HEMOGRAM ONLY)2022-03-20 05:16:27 Test Item Value Reference Range Interpretation Comments WHITE BLOOD CELL COUNT (BEAKER) 8.2 K/ L 3.5-10.5 (test code = 775) RED BLOOD CELL COUNT (BEAKER) 4.45 M/ L 4.63-6.08 L (test code = 761) HEMOGLOBIN (BEAKER) (test code = 11.2 GM/DL 13.7-17.5 L 410) HEMATOCRIT (BEAKER) (test code = 38.2 % 40.1-51.0 L 411) MEAN CORPUSCULAR VOLUME (BEAKER) 85.8 fL 79.0-92.2 (test code = 753) MEAN CORPUSCULAR HEMOGLOBIN 25.2 pg 25.7-32.2 L (BEAKER) (test code = 751) MEAN CORPUSCULAR HEMOGLOBIN CONC 29.3 GM/DL 32.3-36.5 L (BEAKER) (test code = 752) RED CELL DISTRIBUTION WIDTH 17.8 % 11.6-14.4 H (BEAKER) (test code = 412) PLATELET COUNT (BEAKER) (test 678 K/CU MM 150-450 H code = 756) MEAN PLATELET VOLUME (BEAKER) 8.0 fL 9.4-12.4 L (test code = 754) NUCLEATED RED BLOOD CELLS 0 /100 WBC 0-0 (BEAKER) (test code = 413) HEPATIC FUNCTION [id number] 18:46:08 Test Item Value Reference Range Interpretation Comments TOTAL PROTEIN (BEAKER) (test code = 7.6 gm/dL 6.0-8.3 770) ALBUMIN (BEAKER) (test code = 1145) 3.8 g/dL 3.5-5.0 BILIRUBIN TOTAL (BEAKER) (test code 0.3 mg/dL 0.2-1.2 = 377) BILIRUBIN DIRECT (BEAKER) (test 0.2 mg/dL 0.1-0.5 code = 706) ALKALINE PHOSPHATASE (BEAKER) (test 144 U/L 40-150 code = 346) AST (SGOT) (BEAKER) (test code = 18 U/L 5-34 353) ALT (SGPT) (BEAKER) (test code = 26 U/L 6-55 347) Fluid Power Mechanic ID Christopher STONE [id number] 06:20:38 Test Item Value Reference Range Interpretation Comments MAGNESIUM (BEAKER) (test code = 2.2 mg/dL 1.6-2.6 627) Fluid Power Mechanic ID Christopher BARRY WBASIC METABOLIC [id number] 06:20:37 Test Item Value Reference Range Interpretation Comments SODIUM (BEAKER) 140 meq/L 136-145 (test code = 381) POTASSIUM (BEAKER) 4.3 meq/L 3.5-5.1 (test code = 379) CHLORIDE (BEAKER) 104 meq/L 98-107 (test code = 382) CO2 (BEAKER) (test 27 meq/L 22-29 code = 355) BLOOD UREA NITROGEN 17 mg/dL 7-21 (BEAKER) (test code = 354) CREATININE (BEAKER) 0.57 mg/dL 0.57-1.25 (test code = 358) GLUCOSE RANDOM 90 mg/dL 70-105 (BEAKER) (test code = 652) CALCIUM (BEAKER) 9.7 mg/dL 8.4-10.2 (test code = 697) EGFR (BEAKER) (test 177 mL/min/1.73 ESTIM ATED GFR IS code = 1092) sq m NOT ACCURATE CREATININE CLEARANCE IN PREDICTING GLOMERULAR FILTRATION RATE . ESTIMATED GFR I S NOT APPLICABLE FOR DIALYSIS PATIEN TS. Fluid Power Mechanic ID - ASHA WCBC (HEMOGRAM ONLY)2022-03-18 07:10:29 Test Item Value Reference Range Interpretation Comments WHITE BLOOD CELL COUNT (BEAKER) 8.2 K/ L 3.5-10.5 (test code = 775) RED BLOOD CELL COUNT (BEAKER) 4.04 M/ L 4.63-6.08 L (test code = 761) HEMOGLOBIN (BEAKER) (test code = 10.2 GM/DL 13.7-17.5 L 410) HEMATOCRIT (BEAKER) (test code = 34.7 % 40.1-51.0 L 411) MEAN CORPUSCULAR VOLUME (BEAKER) 85.9 fL 79.0-92.2 (test code = 753) MEAN CORPUSCULAR HEMOGLOBIN 25.2 pg 25.7-32.2 L (BEAKER) (test code = 751) MEAN CORPUSCULAR HEMOGLOBIN CONC 29.4 GM/DL 32.3-36.5 L (BEAKER) (test code = 752) RED CELL DISTRIBUTION WIDTH 17.8 % 11.6-14.4 H (BEAKER) (test code = 412) PLATELET COUNT (BEAKER) (test 695 K/CU MM 150-450 H code = 756) MEAN PLATELET VOLUME (BEAKER) 8.3 fL 9.4-12.4 L (test code = 754) NUCLEATED RED BLOOD CELLS 0 /100 WBC 0-0 (BEAKER) (test code = 413) BASIC METABOLIC [id number] 07:03:46 Test Item Value Reference Range Interpretation Comments SODIUM (BEAKER) 140 meq/L 136-145 (test code = 381) POTASSIUM (BEAKER) 4.1 meq/L 3.5-5.1 (test code = 379) CHLORIDE (BEAKER) 101 meq/L 98-107 (test code = 382) CO2 (BEAKER) (test 29 meq/L 22-29 code = 355) BLOOD UREA NITROGEN 22 mg/dL 7-21 H (BEAKER) (test code = 354) CREATININE (BEAKER) 0.60 mg/dL 0.57-1.25 (test code = 358) GLUCOSE RANDOM 86 mg/dL 70-105 (BEAKER) (test code = 652) CALCIUM (BEAKER) 10.0 mg/dL 8.4-10.2 (test code = 697) EGFR (BEAKER) (test 167 mL/min/1.73 ESTIM ATED GFR IS code = 1092) sq m NOT ACCURATE CREATININE CLEARANCE IN PREDICTING GLOMERULAR FILTRATION RATE . ESTIMATED GFR I S NOT APPLICABLE FOR DIALYSIS PATIEN TS. Fluid Power Mechanic ID - ASHA [id number] 07:01:20 Test Item Value Reference Range Interpretation Comments MAGNESIUM (BEAKER) (test code = 2.1 mg/dL 1.6-2.6 627) Fluid Power Mechanic ID - ASHA [id number] 08:38:36 Test Item Value Reference Range Interpretation Comments MAGNESIUM (BEAKER) (test code = 2.1 mg/dL 1.6-2.6 627) Fluid Power Mechanic ID - DBBASIC METABOLIC [id number] 08:38:35 Test Item Value Reference Range Interpretation Comments SODIUM (BEAKER) 130 meq/L 136-145 L (test code = 381) POTASSIUM (BEAKER) 4.3 meq/L 3.5-5.1 (test code = 379) CHLORIDE (BEAKER) 95 meq/L 98-107 L (test code = 382) CO2 (BEAKER) (test 29 meq/L 22-29 code = 355) BLOOD UREA NITROGEN 20 mg/dL 7-21 (BEAKER) (test code = 354) CREATININE (BEAKER) 0.58 mg/dL 0.57-1.25 (test code = 358) GLUCOSE RANDOM 88 mg/dL 70-105 (BEAKER) (test code = 652) CALCIUM (BEAKER) 9.7 mg/dL 8.4-10.2 (test code = 697) EGFR (BEAKER) (test 174 mL/min/1.73 ESTIM ATED GFR IS code = 1092) sq m NOT ACCURATE CREATININE CLEARANCE IN PREDICTING GLOMERULAR FILTRATION RATE . ESTIMATED GFR I S NOT APPLICABLE FOR DIALYSIS PATIEN TS. Fluid Power Mechanic ID - [id number] 13:32:40 Test Item Value Reference Range Interpretation Comments MAGNESIUM (BEAKER) (test code = 2.0 mg/dL 1.6-2.6 627) Fluid Power Mechanic ID - BSBASIC METABOLIC [id number] 13:32:39 Test Item Value Reference Range Interpretation Comments SODIUM (BEAKER) 137 meq/L 136-145 (test code = 381) POTASSIUM (BEAKER) 4.0 meq/L 3.5-5.1 (test code = 379) CHLORIDE (BEAKER) 100 meq/L 98-107 (test code = 382) CO2 (BEAKER) (test 30 meq/L 22-29 H code = 355) BLOOD UREA NITROGEN 24 mg/dL 7-21 H (BEAKER) (test code = 354) CREATININE (BEAKER) 0.61 mg/dL 0.57-1.25 (test code = 358) GLUCOSE RANDOM 76 mg/dL 70-105 (BEAKER) (test code = 652) CALCIUM (BEAKER) 9.5 mg/dL 8.4-10.2 (test code = 697) EGFR (BEAKER) (test 164 mL/min/1.73 ESTIM ATED GFR IS code = 1092) sq m NOT ACCURATE CREATININE CLEARANCE IN PREDICTING GLOMERULAR FILTRATION RATE . ESTIMATED GFR I S NOT APPLICABLE FOR DIALYSIS PATIEN TS. Fluid Power Mechanic ID - BSCBC (HEMOGRAM ONLY)2022-03-16 08:32:01 Test Item Value Reference Range Interpretation Comments WHITE BLOOD CELL COUNT (BEAKER) 8.9 K/ L 3.5-10.5 (test code = 775) RED BLOOD CELL COUNT (BEAKER) 3.99 M/ L 4.63-6.08 L (test code = 761) HEMOGLOBIN (BEAKER) (test code = 10.1 GM/DL 13.7-17.5 L 410) HEMATOCRIT (BEAKER) (test code = 34.2 % 40.1-51.0 L 411) MEAN CORPUSCULAR VOLUME (BEAKER) 85.7 fL 79.0-92.2 (test code = 753) MEAN CORPUSCULAR HEMOGLOBIN 25.3 pg 25.7-32.2 L (BEAKER) (test code = 751) MEAN CORPUSCULAR HEMOGLOBIN CONC 29.5 GM/DL 32.3-36.5 L (BEAKER) (test code = 752) RED CELL DISTRIBUTION WIDTH 17.8 % 11.6-14.4 H (BEAKER) (test code = 412) PLATELET COUNT (BEAKER) (test 639 K/CU MM 150-450 H code = 756) MEAN PLATELET VOLUME (BEAKER) 8.3 fL 9.4-12.4 L (test code = 754) NUCLEATED RED BLOOD CELLS 0 /100 WBC 0-0 (BEAKER) (test code = 413) SARS-COV2/RT-PCR ([facility])2022-03-16 01:26:39 Test Item Value Reference Range Interpretation Comments SARS-COV2/RT-PCR (test Negative Not Detected, Negative, code = 6496203) See external report for linked test SARS-COV-2 PERFORMING LAB [facility] (test code = 5832000) Negative result for this test determines that SARS-CoV-2 RNA was not present in the specimen above the Limit of Detection (LOD). However, Negative results do not preclude SARS-CoV-2 infection and should not be used as the sole basis for treatment or patient management decisions. Negative results must be combined with clinical observations, patient history, and epidemiological information. A false negative result may occur if a specimen is improperly collected, transported or handled. A false negative result should be considered if patient's recent exposures or clinical presentation indicate that COVID-19 (SARS-CoV-2) is likely and diagnostic tests for other causes of illness are negative. Re-testing should be considered in cases of suspected false negatives.The limit of detection for this assay is 800 copies/mL.This SARS CoV-2 test is a real-time RT-PCR test intended for the qualitative detection of nucleic acid from SARS-CoV-2 in a nasopharyngeal swab specimen collected from individuals suspected of COVID-19 by their healthcare provider.This test has not been Food and Drug Administration (FDA) cleared or approved. This is a modified version of an approved Emergency Use Authorization (EUA) and is in the process of review by the FDA. Once authorized by the FDA, the issued EUA will be effective until the declaration that circumstances exist justifying the authorization of the emergency use ofin vitro diagnostic tests for detection and/or diagnosis of COVID-19 is terminated under Section 564(b)(2) of the Act or the EUA is revoked under Section 564(g) of the Act.Fact Sheet for Healthcare Prov iders:https://www.[employer]/sites/default/files/product/documents/Fact_Sheet_HC _Exraytrbe_Fguh_MYQI-FgN-0.pdfFact Sheet for Healthcare Patients:https://www.[employer]/sites/default/files/product/docume nts/Uhnu_Owdfb_Vaeqpgfm_Tlyj_LVVO-TzC-2.pdfPerforming Laboratory:[facility].[place], [place] [id number] 06:37:58 Test Item Value Reference Range Interpretation Comments MAGNESIUM (BEAKER) (test code = 2.0 mg/dL 1.6-2.6 627) Fluid Power Mechanic ID - BSBASIC METABOLIC [id number] 06:37:57 Test Item Value Reference Range Interpretation Comments SODIUM (BEAKER) 137 meq/L 136-145 (test code = 381) POTASSIUM (BEAKER) 4.1 meq/L 3.5-5.1 (test code = 379) CHLORIDE (BEAKER) 99 meq/L 98-107 (test code = 382) CO2 (BEAKER) (test 28 meq/L 22-29 code = 355) BLOOD UREA NITROGEN 20 mg/dL 7-21 (BEAKER) (test code = 354) CREATININE (BEAKER) 0.59 mg/dL 0.57-1.25 (test code = 358) GLUCOSE RANDOM 86 mg/dL 70-105 (BEAKER) (test code = 652) CALCIUM (BEAKER) 9.7 mg/dL 8.4-10.2 (test code = 697) EGFR (BEAKER) (test 170 mL/min/1.73 ESTIM ATED GFR IS code = 1092) sq m NOT ACCURATE CREATININE CLEARANCE IN PREDICTING GLOMERULAR FILTRATION RATE . ESTIMATED GFR I S NOT APPLICABLE FOR DIALYSIS PATIEN TS. Fluid Power Mechanic ID - BSBASIC METABOLIC [id number] 07:22:38 Test Item Value Reference Range Interpretation Comments SODIUM (BEAKER) 136 meq/L 136-145 (test code = 381) POTASSIUM (BEAKER) 4.2 meq/L 3.5-5.1 (test code = 379) CHLORIDE (BEAKER) 100 meq/L 98-107 (test code = 382) CO2 (BEAKER) (test 28 meq/L 22-29 code = 355) BLOOD UREA NITROGEN 20 mg/dL 7-21 (BEAKER) (test code = 354) CREATININE (BEAKER) 0.57 mg/dL 0.57-1.25 (test code = 358) GLUCOSE RANDOM 88 mg/dL 70-105 (BEAKER) (test code = 652) CALCIUM (BEAKER) 9.6 mg/dL 8.4-10.2 (test code = 697) EGFR (BEAKER) (test 177 mL/min/1.73 ESTIM ATED GFR IS code = 1092) sq m NOT ACCURATE CREATININE CLEARANCE IN PREDICTING GLOMERULAR FILTRATION RATE . ESTIMATED GFR I S NOT APPLICABLE FOR DIALYSIS PATIEN TS. Fluid Power Mechanic ID - PIAYA [id number] 07:22:38 Test Item Value Reference Range Interpretation Comments MAGNESIUM (BEAKER) (test code = 1.9 mg/dL 1.6-2.6 627) Fluid Power Mechanic ID - PIAYA LCBC (HEMOGRAM ONLY)2022-03-14 07:10:08 Test Item Value Reference Range Interpretation Comments WHITE BLOOD CELL COUNT (BEAKER) 8.7 K/ L 3.5-10.5 (test code = 775) RED BLOOD CELL COUNT (BEAKER) 4.05 M/ L 4.63-6.08 L (test code = 761) HEMOGLOBIN (BEAKER) (test code = 10.2 GM/DL 13.7-17.5 L 410) HEMATOCRIT (BEAKER) (test code = 34.8 % 40.1-51.0 L 411) MEAN CORPUSCULAR VOLUME (BEAKER) 85.9 fL 79.0-92.2 (test code = 753) MEAN CORPUSCULAR HEMOGLOBIN 25.2 pg 25.7-32.2 L (BEAKER) (test code = 751) MEAN CORPUSCULAR HEMOGLOBIN CONC 29.3 GM/DL 32.3-36.5 L (BEAKER) (test code = 752) RED CELL DISTRIBUTION WIDTH 18.1 % 11.6-14.4 H (BEAKER) (test code = 412) PLATELET COUNT (BEAKER) (test 571 K/CU MM 150-450 H code = 756) MEAN PLATELET VOLUME (BEAKER) 8.2 fL 9.4-12.4 L (test code = 754) NUCLEATED RED BLOOD CELLS 0 /100 WBC 0-0 (BEAKER) (test code = 413) RAD, ANKLE, MIN 3 VIEWS, [id number] 19:19:00Reason for exam:->pain. [facility] 2000 Sex: MFINAL REPORT TECHNIQUE: Three views of the left ankle. INDICATION: pain.. COMPARISON: None. FINDINGS: The oblique view is suboptimal. No acute fractures or dislocations.Joint spacesare within normal limits.Mild soft tissue swelling of the dorsum of the midfoot. IMPRESSION: No acute bone abnormality of the left ankle. Signed: Jackie Miller Verified Date/Time: 03/13/2022 19:19 :26 Limited 2D [id number] 16:46:16Ejection FractionSLEH ECHO HEARTLAB MKCKESSON [facility]Lim[facility]D [id number] 16:46:16Ejection FractionSLEH ECHO HEARTLAB [facility] [id number] 08:30:32 Test Item Value Reference Range Interpretation Comments SODIUM (BEAKER) 135 meq/L 136-145 L (test code = 381) POTASSIUM (BEAKER) 4.4 meq/L 3.5-5.1 Specimen slightly (test code = 379) hemolyzed CHLORIDE (BEAKER) 97 meq/L 98-107 L (test code = 382) CO2 (BEAKER) (test 28 meq/L 22-29 code = 355) BLOOD UREA NITROGEN 15 mg/dL 7-21 (BEAKER) (test code = 354) CREATININE (BEAKER) 0.59 mg/dL 0.57-1.25 Specimen slightly (test code = 358) hemolyzed GLUCOSE RANDOM 89 mg/dL 70-105 (BEAKER) (test code = 652) CALCIUM (BEAKER) 9.6 mg/dL 8.4-10.2 (test code = 697) EGFR (BEAKER) (test 170 mL/min/1.73 ESTIM ATED GFR IS code = 1092) sq m NOT ACCURATE CREATININE CLEARANCE IN PREDICTING GLOMERULAR FILTRATION RATE . ESTIMATED GFR I S NOT APPLICABLE FOR DIALYSIS PATIEN TS. Fluid Power Mechanic ID - [id number] 08:30:31 Test Item Value Reference Range Interpretation Comments MAGNESIUM (BEAKER) 2.1 mg/dL 1.6-2.6 Specimen slightly (test code = 627) hemolyzed Fluid Power Mechanic ID - DBRAD, CHEST, 1 VIEW, NON [id number] 07:53:00Reason for exam:- >s/p [facility] : 2000 Sex: MFINAL REPORT RAD, CHEST, 1 VIEW, NON DEPT INDICATION: s/p MVR COMPARISON: Prior day's exam FINDINGS: Portable frontal view of the chest. IMPRESSION: Support Lines: PICC tip overliesthe atriocaval junction. Status post MVR. Lungs and pleura: Minimal trace biapical pneumothoraces persists. Small right effusion and right basilar atelectasis, unchanged. Heart and mediastinum: Stable contours. Stable surgical changes. Additional findings: None. Signed: Christi Bhatti MDReport Verified Date/Time: 03/12/2022 07:53:35 BASIC METABOLIC [id number] 05:15:17 Test Item Value Reference Range Interpretation Comments SODIUM (BEAKER) 137 meq/L 136-145 (test code = 381) POTASSIUM (BEAKER) 4.3 meq/L 3.5-5.1 (test code = 379) CHLORIDE (BEAKER) 99 meq/L 98-107 (test code = 382) CO2 (BEAKER) (test 27 meq/L 22-29 code = 355) BLOOD UREA NITROGEN 11 mg/dL 7-21 (BEAKER) (test code = 354) CREATININE (BEAKER) 0.58 mg/dL 0.57-1.25 (test code = 358) GLUCOSE RANDOM 94 mg/dL 70-105 (BEAKER) (test code = 652) CALCIUM (BEAKER) 9.5 mg/dL 8.4-10.2 (test code = 697) EGFR (BEAKER) (test 174 mL/min/1.73 ESTIM ATED GFR IS code = 1092) sq m NOT ACCURATE CREATININE CLEARANCE IN PREDICTING GLOMERULAR FILTRATION RATE . ESTIMATED GFR I S NOT APPLICABLE FOR DIALYSIS PATIEN TS. Fluid Power Mechanic ID - PIAYA [id number] 05:15:17 Test Item Value Reference Range Interpretation Comments MAGNESIUM (BEAKER) (test code = 1.8 mg/dL 1.6-2.6 627) Fluid Power Mechanic ID - PIAYA LCBC (HEMOGRAM ONLY)2022-03-12 04:40:22 Test Item Value Reference Range Interpretation Comments WHITE BLOOD CELL COUNT (BEAKER) 9.1 K/ L 3.5-10.5 (test code = 775) RED BLOOD CELL COUNT (BEAKER) 3.95 M/ L 4.63-6.08 L (test code = 761) HEMOGLOBIN (BEAKER) (test code = 10.0 GM/DL 13.7-17.5 L 410) HEMATOCRIT (BEAKER) (test code = 33.6 % 40.1-51.0 L 411) MEAN CORPUSCULAR VOLUME (BEAKER) 85.1 fL 79.0-92.2 (test code = 753) MEAN CORPUSCULAR HEMOGLOBIN 25.3 pg 25.7-32.2 L (BEAKER) (test code = 751) MEAN CORPUSCULAR HEMOGLOBIN CONC 29.8 GM/DL 32.3-36.5 L (BEAKER) (test code = 752) RED CELL DISTRIBUTION WIDTH 18.6 % 11.6-14.4 H (BEAKER) (test code = 412) PLATELET COUNT (BEAKER) (test 523 K/CU MM 150-450 H code = 756) MEAN PLATELET VOLUME (BEAKER) 8.3 fL 9.4-12.4 L (test code = 754) NUCLEATED RED BLOOD CELLS 0 /100 WBC 0-0 (BEAKER) (test code = 413) [id number] 12:03:27 Test Item Value Reference Range Interpretation Comments MAGNESIUM (BEAKER) (test code = 1.8 mg/dL 1.6-2.6 627) Fluid Power Mechanic ID - CHRIS MBASIC METABOLIC [id number] 12:03:26 Test Item Value Reference Range Interpretation Comments SODIUM (BEAKER) 133 meq/L 136-145 L (test code = 381) POTASSIUM (BEAKER) 4.1 meq/L 3.5-5.1 (test code = 379) CHLORIDE (BEAKER) 99 meq/L 98-107 (test code = 382) CO2 (BEAKER) (test 25 meq/L 22-29 code = 355) BLOOD UREA NITROGEN 11 mg/dL 7-21 (BEAKER) (test code = 354) CREATININE (BEAKER) 0.55 mg/dL 0.57-1.25 L (test code = 358) GLUCOSE RANDOM 107 mg/dL 70-105 H (BEAKER) (test code = 652) CALCIUM (BEAKER) 8.9 mg/dL 8.4-10.2 (test code = 697) EGFR (BEAKER) (test 185 mL/min/1.73 ESTIM ATED GFR IS code = 1092) sq m NOT ACCURATE CREATININE CLEARANCE IN PREDICTING GLOMERULAR FILTRATION RATE . ESTIMATED GFR I S NOT APPLICABLE FOR DIALYSIS PATIEN TS. Fluid Power Mechanic ID - CHRIS MRAD, CHEST, 1 VIEW, NON [id number] 09:48:00Reason for exam:->s/p [facility] : 2000 Sex: MFINAL REPORT RAD, CHEST, 1 VIEW, NON DEPT INDICATION: s/p MVR COMPARISON: Prior day's exam FINDINGS: Portable frontal view of the chest. IMPRESSION: Support Lines: PICC tip overliesthe atriocaval junction. Status post MVR. Lungs and pleura: Minimal trace biapical pneumothoraces persists. Small right effusion and right basilar atelectasis, unchanged. Heart and mediastinum: Stable contours. Stable surgical changes. Additional findings: None. Signed: Christi Bhatti Verified Date/Time: 03/11/2022 09:48:08 Tissue Exam 2022-03-10 18:56:57 Test Item Value Reference Range Interpretation Comments Case Report (test code Surgical Pathology = 104) Report Case: [id number] Authorizing Provider: Dae Walsh, Collected: 03/02/2022 06:37 PM Ordering Location: [facility] Received: 03/03/2022 02:09 PM PERIOPERATIVE SERVICES Pathologist: Suzanne Camargo MD Specimen: Mitral Valve, Mitral Valve Leaflet DIAGNOSIS (test code = [id number] 3220) uZzEwMzNcZnRuYmpcdWMxIH tccnRmMVxlcGljOTYwMVxhb jCfZMCljXAxC2GxnqhcGMgw HV7vLU1rdJlodHUerQDaQJG fBkVav4gts376nGRvn7fpIO AHdngurQs8vPqzQ19nf9M8O mqmV23yyHDqSTX7KITzMLSh qLQrZAClMBH2LLRmiFHcO9v jVCTdFI2iudcoAGtfPTpjFX NoyOH6JBQqfXOcT0PoBZOoN ZujHXEvnxl8CsHvUi0icYKs eTcyMFxwYXJkXHBsYWluXGZ zMjAgTUlUUkFMIFZBTFZFIE lZFTFTOWVLFNAQWWDLU6yFK qmdOXAqzVQmPZ4nLiMQAiMM GXWpEHbSD0UOFNzMPAerMJS XCXQbXL5JGKUKIMWIVA7AUA CUUVEYPH0KRTJJNAyHYrCbT AfYUGKSDAyuWTTePwy8QjPn GSYNSdOqN1JVRgWWOLJRZ89 xFLyMI4EGZAOxex48PLG3Ae Jxm2L7AHM9NEPwKIXwv7odQ GVmbGFuZzEwMzNcZnRuYmpc vTOzVWHtTmMjp2fsi834cOP yr1peLFKaDpH8eRCqTMQjmC NqG770YFVlHRpdj9iyi3QdK DPefKAlr5P5GEZDrmfkfRv9 hKzxB63yg7J7OevwV5ruTHZ jVMGwK9ToKF9aPGKkLnp1BC E2OYK8EBJuMFNuG4MxID8tO NAlbNJyTZb3t6yskZakFXOu KQQ1e2jxIVvwksSuHH6njt0 hvCo9c3rqsbHvLVEdZFKfmU PKORKsZ2VjpXdtUc0twIx3p VtlOnctCZU2Tff6JS3kej56 bnr0lEchDVMjmallXeI1XBk kHTNxfagmUHa8XMdoYHOrwU Y6ZHDntUGzE4NaMWYcDE6sz sm7YNN4NAtrAYEaPeW8UALw wYRrPTAipZhcNGrnq773NMW 5YoFnSA2xS8Tvx6C3kC2otH HwTAMbpWQhZjTpAJPlyu3dy BFxVXmjs6PnDQG3zkF4rJKe eEDfRVLzZfJ8ZFbfJZ1ikx3 9TJYnCUS0in3hbCNdqPbkou VssNDbLEeeL0VoNNGnw596D OWoW7XkGZUjp0O9eqHkMdKn LRNhlVI8suJ8ZTLjMK2ojhc jv7gaFArvFMwqYJEhidJ7go R5IJYrvYMxP5YstM0kJQYmR Z0lpbyec1wmUMZ4XFpkQDRy SAN9WxVsRFRcr3Dmrkv0KtB oo6IpmCHaWJdyW12ty833ST YwjlTmK9sezAOhhgvoyYDsm xtjQOcqwxJ6RDBvONukblfy FXIqXTicB9ukPxXkABYxbFg qQWeys0MbGOMrKUNmFoJsvA PiRSEzZfx8ZTDwzQDjSCBsO lSkA5doultnHtVOQUFfy8ba O9oxzEVIkQJpQ7HoGSowjkS vYNnnBAtvZfIeSHv1YR63Zk BsUYVrkj23 CPT Code(s) (test code d9xguZIaZEXhwZA3DaOxGWM = 3357) sy7vaq5GjlFMeuYMgNQqrqT MyamVfed88sAL0kJ24UO0yO ZDtIkG8CRKkiwD2Zip3ELQo MWLqgMDsC598h9lnq2zvgoG hxBN5bUujTTCwkwbsVbH1WW dhSMFausweEVn9XNoaWWOti HZ5QYBviBUyZ3QgOANvKS1z wco7PKT6KSkpVBOxRaW3PML paWYaEAAfgNefKArtc723ZA U1NxXpBDRscaEzaGemjP3xV wJxDHC4LHWpAPQ9HCWjLKTf cGFyfQ== GROSS DESCRIPTION n3mgbWIwLKZnuIXHMIMpYgh (test code = hdhZaNBVxnWOfN1YqpfjgGO [id number]) eiPM4qKB9rcXgsxHYlzFLzH N9YMZGeVnCkIYGrqRPjdtGh SpTpPYBjpOZduBX6NNBdLA9 jwzctPPkdSHfeBVLiplG0JY FduYKvM8WcUOTwMF7kapyoK FN6DRxzhI0jdzNZWydhJx2b dHRibHtcZjFcZmNoYXJzZXQ iBIOwaWxnFEPrPVk4iW0VNc xbQPI2OFPZQuwqUSWnFY1Wf 8ibBCKpyIViBJL4DLvccFAw RDGhICZuBOm5VHQsDNnnzZL pNP1biVaeZesciCovw8InlF BcXGlkIDUxMDAyIFxcZGIgI R1RScYtFOeNDgN1NSL7FzQ2 XXg4SJXBUdQqNfZoFyhxCsy tDxazRGe9WNy4ZTmNJsQ9EH ibCfS4HZIhBNQkOXueYTs5C DIgXFxmIEFyaWFsIFxcZmwg SDnwI20btWqzoC1tMX6kUBr 0cmFsIFZhbHZlLlxwYXIgDQ agYCWiC85zr0SMw5PiWB2GU Qu9qvRgnpqlxI1aDCNgvoFw AVoobOVpF2goJtNzMLTBYnK eYbShGFl0LQUmkG0pLo1ttZ QbiQ9vmLTjEVlmZRP1uBCnQ DZcpKwvkwCqgeScCW2nQYKa T8Hen6Kwu79dxkTvXqGhXWH tOLFvrSj0vrMqCDWcsXDsBf GjdoAvYLkdVEZ1SIBdvIGeT qSfE21grGClYPlepKDwDVNd ThYouKUlk7IpqDNuNANzKYL lBS1lBZNun3B4CFX6qKZyJR 58mYUwjOztQTSqls42hZo3F HMfvF6kWFEtxHSmnnFihFjp fqSkGE1yVJEvyLYkLDQczEX fICsxvEVbXDTujd3pwi4jpX kaxv8uEGKyfTTiy7TenXQ4f UNaPKGbA9Twd71lQKTeXMIa jUYyaGG1ZLZbdX5pJ0Cig2G 8kCDvRGHhAYZbSTISCl7uJH jcyBvjwT2xIEIfW57fr7HBq 1KfIPQdQVjaj1pblBnma5Do dGVuZFxwYXJccGFyZFxzbC0 hSsTfk1mzsPi3ORxykiW5GX Xwkr9FJvcqvN6eNcKnm1qko Ma0CCHAJaggnaU4n0worUpw l5BolRUfGX0OPv3= MICROSCOPIC f4kloILuWIFvuTX5FlBfEMK DESCRIPTION (test code es2own9YoaOGlpUTnEAgmmE = 3371) XhgfTcyv96tHR1yR29IT6eT CRnRbC1HACuvfC0Nfw1UKMz CCFfcIIaC155k0ums4lgvrW pdES0fDnoIFVjjmguZkM4DT gyHSCmcmgjPLy2QCuyYKQlr OH2OXCexGRsX8PaNKYiED6x [id number] kaBThPTJlxUwpRFnfw728JO G3OhDeDEHstcDqfKmgrX3rF tNpMDZJKEAsl8MwCMNcBVaw YXJ9 Gross assessment was [facility] performed at ([facility], code = 2777) Department of Pathology, [address] [place] [address], Technical component [facility] was performed at ([facility], code = 2778) Department of Pathology, [address] [place] [address] 95107, Professional component [facility] was performed at ([facility], code = 2779) Department of Pathology, [address] [place] [address], [facility] [id number] 18:56:57 Test Item Value Reference Range Interpretation Comments Case Report (test code Surgical Pathology = 104) Report Case: [id number] Authorizing Provider: Dae Walsh, Collected: 03/02/2022 06:37 PM Ordering Location: [facility] Received: 03/03/2022 02:09 PM PERIOPERATIVE SERVICES Pathologist: Suzanne Camargo MD Specimen: Mitral Valve, Mitral Valve Leaflet DIAGNOSIS (test code = u1ricLLdQHPub0eiZJFkjAM 3220) uZzEwMzNcZnRuYmpcdWMxIH tccnRmMVxlcGljOTYwMVxhb wOmNVJtvYFbC9OecuajXWuj CI3tEO3fgBuvhGCmlOMkSMA yOrAvp2guy112hIWcr5poMV ZUeejnaFp6qUjaD71va0U0W piuG07jwXFdKSB2LBEkCRGg yVXaLZMnDKK9PSBilUQpE5z nHVIdFQ1jrygfMXzhYNdeIX YohVL3QSGzgYCyR1RmSVGnY YzcWCYicel5GkNzHn2hzPSo eTcyMFxwYXJkXHBsYWluXGZ zMjAgTUlUUkFMIFZBTFZFIE cRYJAIRNRBTECOGTLZC5eOK iszHXKvfSGfWB7iKdUIPjGY UHMeHNvPQ8QYKSrNIPvdONF HZIEqND7WUDGKXIPOVZ5LWW CSDPKAAF1RBTNHOZbAEuGhS SpCCZMEWXunVQTjSdp1AfRq RSUTRcIkQ6QHFjYCSDVXZ10 nJAnNX6XBHBUrjg66LXK6La Axn2J2GZB7XRZyXFSgh8klS GVmbGFuZzEwMzNcZnRuYmpc zZKfFCWkRyOxs3wfs134qKG os1yyIHEyCmF6eFHnFGLrfN SaU903AJRxUZqyl4peg4EiA CGppTNul4Q3AELGiitvnHe2 aZwcX55aj1B4QsgjU4nlQRQ zQKKnY6IhKU7qNDRfEvr7AI J8XSO2OFHfUZZcR7SoMM7lD VPsgCUjSHm6t1utaAwhUGVp BCO3h0czKHpshrDcYX3uii7 njWl3c0tmteWnNTZaGCRvoR PLUAJlK7TxbLbqWh0hdBw5k LwoMojzCEW1Clj0AO4blo67 pra7mEmwOHAgjhtrOiT0YDp bREUibwvrBHg1CEfqHPBwwL K6XEUvuBArJ4ArNZLvSX4mq wa0WZL1OPczRDJxDoP1QVXg iOXlGGYdsCiaWSshr085HOJ 1UfCzRG0uP5Wai7M6oK4vfD SpCGKjpHEoQyIpHYSbbb3ar BYpXZznw8GfEPD9ruX9nMHf dYKeCYAtUxB1FOfgXF7tqw9 0YLZbHTJ3gn3pxTXblCqito FcaHRfGBbvH3ZyVDQyv186S LQbU0KnIFTyj6X7znKkRlUg VYNujNE0caE2LIPjWG3lkbw if8tiZKvjMRfiYWNhpuX0dy Q2NWAsgNZlZ5LohV4vINFlT L7khscey6jeGXS2NMxbPALv YXZ0RjYxIXPmc1Elqwp5WwH on4ZinKRzNLffL42ho678KW BmexRaB0llhBAgeormyCWdd vxiWIllmtW2MIDvHFykhhcu KASeQDrxP0tjJmImIFEplDd bPIoom9LnJKQvNCScVqCfrP KkLDUsCqy6OVNolZXdLXGqH eHhT7antzfdRqGDPNCrh2jr D2hdqHSIyIPuK8VqVNroqxX cUQwsAQfeSgChGUr2WB67Vz XyHMXydb53 CPT Code(s) (test code j9yzcTVlILNzhVU6UgXxSWF = 3357) qs6mkj1IpwRDloJQxRTcvsI SgbvPuxi44yZM0rR02CM8fY FGkUpD8JISdajG3Fsa4ZWVy ECRhzYUdA767c0mgm6lvayX leUC1wTqzIGEhqwrfPuF5DF zkMVQzkxrqJKk9BIulBYIcb AV0JYPriTZyX0IyNLZeAO9x seq4LYX7JBdtKVTvHbN0HZR xhGPyVZQdtRyeZIppa504RL N2YwHiXHYrvbAirQrqwO6lO bPdKHR5VITxHFG1XDSoTUTi cGFyfQ== GROSS DESCRIPTION k7tegADkVXOyvJTGZTAnSgs (test code = kfeKrLWFdeUOqT4VlmpdhTI [id number]) zfSZ7mKR4wbBmegETukYMoA Q6CYMAsQcOzREYhnDRrnoCe TjOsPGUtkKHffKE4ELGxLO4 azyteOQxnUMceMSRwfeE0QV PhlCYrE2ZjPPEqKY0aktpdL PY5WEmbcV5lunCPQbzjLh3l dHRibHtcZjFcZmNoYXJzZXQ nMLEfrJbrSBUbZJc8kS5WVi ksRPW4TUMJFvqgESHbGW5Xb 3amMCZkrXHjQBF1RBzzaQEv KWTgEEYwJXe5CXQjMUzicDX sHX5afVdiSrsnoZfeb5CegC BcXGlkIDUxMDAyIFxcZGIgI H9FWsTxQSeRKeI1YGP1NlV7 LQm5OVHTDpJaUoQzXsykJhr fVpnyKNy8KPu5YMnJJzR4GP siVuN1IYQxDBOzMVraBVd0J DIgXFxmIEFyaWFsIFxcZmwg THvlX79hfQnjvJ5lPB6rVBq 0cmFsIFZhbHZlLlxwYXIgDQ hdVYImV33mc1XHz6NqGL6GV Kb1akSbylvvsO9aZKPkvaDo NZdorUWeE8akHrLlFIJSPbV dQyMcGWk0ZEPipM3lIf8zgX FwjL0kuKHhBVuoPLD0eCTeW BNefKbsbbIyvuDaGW5uWQFn K2Hoe4Ipk46rqlIuBjPlLOW yNXIqbXe4afTzZHRtzAHmGh IageYwAVdlJKV1HPOfgTKrJ iXfO33zjUWsHYumoSRzGTUf UbFxgZImx3BrlCOrUJQmGYB sAU2iQBLxi9N0JHU9aOLuZF 08qDHtbGfqUGUskz48uFe7S EOwvC6lGKJriSXrpsLlmLzd hdMnKW6jYDJpdBDeMZXubNP eXIxsrKOpQOEkuc6kdh5uqM gskq0aYOMceIOds7ZibBH2o ACyXEVyM3Dnh68lSGTlEGAm dDPpeKH6QKPatX6jU0Nqv3Z 4iNDdUGNsMCMdBERYFj5oAL apoCpnfX2rLXLeE63zn6FKv 4PvNQPjKYjig6reeZsty1Wa dGVuZFxwYXJccGFyZFxzbC0 qXoEqm3dmbWw1CNnuetG1BS Zvaq6AKcfhdQ9aMmZvj9rxx Cl9LTNYWfixwfH2d4svbCrf q1IdmTClMH3WQz3= MICROSCOPIC n3fqiJHbEDIunNR1LjEoSTO DESCRIPTION (test code gl5xso2ZvzXRhhTGrRQobfE = 3371) PtzfXyyo88kQY7yE82JK9tF YXoEgB6TDCgjcZ5Wmq0YEHz EKXldBAzG551v3gep0cvruC siJP6qApbFVSvqvtpLfZ5MZ lcWWLuyqpcXVz1FMbyWNFez PQ8JPQgqMSwA8PhZPEbRG7b jay8XMN7QHsmCXDyVwH8RDG iuROaORVvtEawQHijc036SV N8EbEoJZRuyxQqiGcfoT1vK dHpQPKOLXHyl2BaNULaSMmu YXJ9 Gross assessment was [facility] performed at ([facility], code = 2777) Department of Pathology, [address] [place] [address], Technical component [facility] was performed at ([facility], code = 2778) Department of Pathology, [address] [place] [address] 00085, Professional component [facility] was performed at ([facility], code = 2779) Department of Pathology, [address] [place] [address], [facility] [id number] 18:56:57Surgical Pathology Report Case: [id number] Authorizing Provider: Jillian Dae Sheltonletha, Collected:03/02/2022 06:37 PM Ordering Location: [facility] Received: 03/03/2022 02:09 PM PERIOPERATIVESERVICES Pathologist: Suzanne Camargo MD Specimen: Mitral Valve, Mitral Valve Leaflet MITRAL VALVE LEAFLETS, EXCISION - VALVULAR TISSUE WITH ACUTE INFLAMMATION, FIBRINOPURULENT EXUDATE AND GRANULATION TISSUE Signing Pathologist Direct Phone Line: [phone] signed by Suzanne Camargo MDon 03/10/2022 at 6:56 [id number] A. Mitral Valve.A. Received in formalin labeled with patient's name, accession number and "mitral valve" is a 8.5 x 2 x 1.5 cm north-white fibrous opaque piece of tissue with multiple north-white linear projections and adhered north-white firm nodules. Staffing Coordinator sections are submitted in cassettes A1 and A2. Performed. [facility], Department of Pathology, [address] [place] [address], [facility], [address] [place] [address], [facility], [facility] of [facility], [address] [place] [address], VOZ, CHEST, 1 VIEW, NON [id number] 09:08:00Reason for exam:->s/p [facility] MAREK PISANO VELASQUEZLaxmi : 2000 Sex: MFINAL REPORT RAD, CHEST, 1 VIEW, NON DEPT TECHNIQUE: Frontal view(s) of the chest. INDICATION: s/p MVR COMPARISON: Chest radiograph one day prior FINDINGS/IMPRESSION: Lines/Tubes: Right-sided chest tube has been removed. Right arm PICC is unchanged Lungs/pleura: Similar right basilar pleural-parenchymal opacity. Possible trace left pleural effusion. Questionable trace biapical pneu mothoraces, similar on the left to prior exam Heart and Mediastinum: Unchanged. Soft Tissues and Bones: Unchanged. Signed: Jennifer Estrada Verified Date/Time: 03/10/2022 09:08:22 Reading Location: [facility] Radiology Reading Room BASIC METABOLIC [id number] 06:24:41 Test Item Value Reference Range Interpretation Comments SODIUM (BEAKER) 133 meq/L 136-145 L (test code = 381) POTASSIUM (BEAKER) 3.9 meq/L 3.5-5.1 (test code = 379) CHLORIDE (BEAKER) 97 meq/L 98-107 L (test code = 382) CO2 (BEAKER) (test 26 meq/L 22-29 code = 355) BLOOD UREA NITROGEN 11 mg/dL 7-21 (BEAKER) (test code = 354) CREATININE (BEAKER) 0.55 mg/dL 0.57-1.25 L (test code = 358) GLUCOSE RANDOM 93 mg/dL 70-105 (BEAKER) (test code = 652) CALCIUM (BEAKER) 8.6 mg/dL 8.4-10.2 (test code = 697) EGFR (BEAKER) (test 185 mL/min/1.73 ESTIM ATED GFR IS code = 1092) sq m NOT ACCURATE CREATININE CLEARANCE IN PREDICTING GLOMERULAR FILTRATION RATE . ESTIMATED GFR I S NOT APPLICABLE FOR DIALYSIS PATIEN TS. Fluid Power Mechanic ID - CHRIS [id number] 06:24:41 Test Item Value Reference Range Interpretation Comments MAGNESIUM (BEAKER) (test code = 1.8 mg/dL 1.6-2.6 627) Fluid Power Mechanic ID - CHRIS MHEPATIC FUNCTION [id number] 06:22:42 Test Item Value Reference Range Interpretation Comments TOTAL PROTEIN (BEAKER) (test code = 5.8 gm/dL 6.0-8.3 L 770) ALBUMIN (BEAKER) (test code = 1145) 2.9 g/dL 3.5-5.0 L BILIRUBIN TOTAL (BEAKER) (test code 0.5 mg/dL 0.2-1.2 = 377) BILIRUBIN DIRECT (BEAKER) (test 0.3 mg/dL 0.1-0.5 code = 706) ALKALINE PHOSPHATASE (BEAKER) (test 126 U/L 40-150 code = 346) AST (SGOT) (BEAKER) (test code = 48 U/L 5-34 H 353) ALT (SGPT) (BEAKER) (test code = 69 U/L 6-55 H 347) Fluid Power Mechanic ID - CHRIS MCBC W/PLT COUNT & AUTO [id number] 05:58:34 Test Item Value Reference Range Interpretation Comments WHITE BLOOD CELL COUNT (BEAKER) 9.7 K/ L 3.5-10.5 (test code = 775) RED BLOOD CELL COUNT (BEAKER) 3.56 M/ L 4.63-6.08 L (test code = 761) HEMOGLOBIN (BEAKER) (test code = 9.2 GM/DL 13.7-17.5 L 410) HEMATOCRIT (BEAKER) (test code = 30.1 % 40.1-51.0 L 411) MEAN CORPUSCULAR VOLUME (BEAKER) 84.6 fL 79.0-92.2 (test code = 753) MEAN CORPUSCULAR HEMOGLOBIN 25.8 pg 25.7-32.2 (BEAKER) (test code = 751) MEAN CORPUSCULAR HEMOGLOBIN CONC 30.6 GM/DL 32.3-36.5 L (BEAKER) (test code = 752) RED CELL DISTRIBUTION WIDTH 19.0 % 11.6-14.4 H (BEAKER) (test code = 412) PLATELET COUNT (BEAKER) (test 419 K/CU MM 150-450 code = 756) MEAN PLATELET VOLUME (BEAKER) 8.5 fL 9.4-12.4 L (test code = 754) NUCLEATED RED BLOOD CELLS 0 /100 WBC 0-0 (BEAKER) (test code = 413) NEUTROPHILS RELATIVE PERCENT 67 % (BEAKER) (test code = 429) LYMPHOCYTES RELATIVE PERCENT 20 % (BEAKER) (test code = 430) MONOCYTES RELATIVE PERCENT 9 % (BEAKER) (test code = 431) EOSINOPHILS RELATIVE PERCENT 2 % (BEAKER) (test code = 432) BASOPHILS RELATIVE PERCENT 1 % (BEAKER) (test code = 437) NEUTROPHILS ABSOLUTE COUNT 6.51 K/ L 1.78-5.38 H (BEAKER) (test code = 670) LYMPHOCYTES ABSOLUTE COUNT 1.95 K/ L 1.32-3.57 (BEAKER) (test code = 414) MONOCYTES ABSOLUTE COUNT (BEAKER) 0.88 K/ L 0.30-0.82 H (test code = 415) EOSINOPHILS ABSOLUTE COUNT 0.18 K/ L 0.04-0.54 (BEAKER) (test code = 416) BASOPHILS ABSOLUTE COUNT (BEAKER) 0.05 K/ L 0.01-0.08 (test code = 417) IMMATURE GRANULOCYTES-RELATIVE 1 % 0-1 PERCENT (BEAKER) (test code = 2801) RAD, CHEST, 1 VIEW, NON [id number] 08:39:00Reason for exam:->s/p MVR [facility] : 2000 Sex: MFINAL REPORT RAD, CHEST, 1 VIEW, NON DEPT TECHNIQUE: Frontal view(s) of the chest. INDICATION: s/p MVR COMPARISON: Chest radiograph one day prior FINDINGS/IMPRESSION: Lines/Tubes: Unchanged Lungs/pleura: Streaky right lung densities, likely atelectatic, no convincing change, and suggestion of mild asymmetric right lung interstitial edema. No convincing change in small right pleural effusion. No pneumothorax. Heart and Mediastinum: Unchanged. Soft Tissues and Bones: Unchanged. Signed: Jennifer Estradaeport Verified Date/Time: 03/09/2022 08:39:01 Reading Location: [facility] Radiology Reading Room MAGNESIUM 2022-03-09 06:46:57 Test Item Value Reference Range Interpretation Comments MAGNESIUM (BEAKER) (test code = 1.8 mg/dL 1.6-2.6 627) Fluid Power Mechanic ID - PIAYA LBASIC METABOLIC [id number] 06:46:56 Test Item Value Reference Range Interpretation Comments SODIUM (BEAKER) 132 meq/L 136-145 L (test code = 381) POTASSIUM (BEAKER) 4.0 meq/L 3.5-5.1 (test code = 379) CHLORIDE (BEAKER) 97 meq/L 98-107 L (test code = 382) CO2 (BEAKER) (test 27 meq/L 22-29 code = 355) BLOOD UREA NITROGEN 8 mg/dL 7-21 (BEAKER) (test code = 354) CREATININE (BEAKER) 0.50 mg/dL 0.57-1.25 L (test code = 358) GLUCOSE RANDOM 89 mg/dL 70-105 (BEAKER) (test code = 652) CALCIUM (BEAKER) 8.5 mg/dL 8.4-10.2 (test code = 697) EGFR (BEAKER) (test 206 mL/min/1.73 ESTIM ATED GFR IS code = 1092) sq m NOT ACCURATE CREATININE CLEARANCE IN PREDICTING GLOMERULAR FILTRATION RATE . ESTIMATED GFR I S NOT APPLICABLE FOR DIALYSIS PATIEN TS. Fluid Power Mechanic ID - PIAYA LCBC W/PLT COUNT & AUTO [id number] 05:36:42 Test Item Value Reference Range Interpretation Comments WHITE BLOOD CELL COUNT (BEAKER) 10.4 K/ L 3.5-10.5 (test code = 775) RED BLOOD CELL COUNT (BEAKER) 3.72 M/ L 4.63-6.08 L (test code = 761) HEMOGLOBIN (BEAKER) (test code = 9.6 GM/DL 13.7-17.5 L 410) HEMATOCRIT (BEAKER) (test code = 31.8 % 40.1-51.0 L 411) MEAN CORPUSCULAR VOLUME (BEAKER) 85.5 fL 79.0-92.2 (test code = 753) MEAN CORPUSCULAR HEMOGLOBIN 25.8 pg 25.7-32.2 (BEAKER) (test code = 751) MEAN CORPUSCULAR HEMOGLOBIN CONC 30.2 GM/DL 32.3-36.5 L (BEAKER) (test code = 752) RED CELL DISTRIBUTION WIDTH 19.0 % 11.6-14.4 H (BEAKER) (test code = 412) PLATELET COUNT (BEAKER) (test 413 K/CU MM 150-450 code = 756) MEAN PLATELET VOLUME (BEAKER) 8.6 fL 9.4-12.4 L (test code = 754) NUCLEATED RED BLOOD CELLS 0 /100 WBC 0-0 (BEAKER) (test code = 413) NEUTROPHILS RELATIVE PERCENT 68 % (BEAKER) (test code = 429) LYMPHOCYTES RELATIVE PERCENT 20 % (BEAKER) (test code = 430) MONOCYTES RELATIVE PERCENT 9 % (BEAKER) (test code = 431) EOSINOPHILS RELATIVE PERCENT 1 % (BEAKER) (test code = 432) BASOPHILS RELATIVE PERCENT 1 % (BEAKER) (test code = 437) NEUTROPHILS ABSOLUTE COUNT 7.02 K/ L 1.78-5.38 H (BEAKER) (test code = 670) LYMPHOCYTES ABSOLUTE COUNT 2.05 K/ L 1.32-3.57 (BEAKER) (test code = 414) MONOCYTES ABSOLUTE COUNT (BEAKER) 0.96 K/ L 0.30-0.82 H (test code = 415) EOSINOPHILS ABSOLUTE COUNT 0.15 K/ L 0.04-0.54 (BEAKER) (test code = 416) BASOPHILS ABSOLUTE COUNT (BEAKER) 0.06 K/ L 0.01-0.08 (test code = 417) IMMATURE GRANULOCYTES-RELATIVE 2 % 0-1 H PERCENT (BEAKER) (test code = 2801) SARS-COV2/RT-PCR ([facility])2022-03-09 01:55:48 Test Item Value Reference Range Interpretation Comments SARS-COV2/RT-PCR (test Negative Not Detected, Negative, code = 9287574) See external report for linked test SARS-COV-2 PERFORMING LAB [facility] NEFTALI (test code = 9873596) Negative result for this test determines that SARS-CoV-2 RNA was not present in the specimen above the Limit of Detection (LOD). However, Negative results do not preclude SARS-CoV-2 infection and should not be used as the sole basis for treatment or patient management decisions. Negative results must be combined with clinical observations, patient history, and epidemiological information. A false negative result may occur if a specimen is improperly collected, transported or handled. A false negative result should be considered if patient's recent exposures or clinical presentation indicate that COVID-19 (SARS-CoV-2) is likely and diagnostic tests for other causes of illness are negative. Re-testing should be considered in cases of suspected false negatives.The limit of detection for this assay is 800 copies/mL.This SARS CoV-2 test is a real-time RT-PCR test intended for the qualitative detection of nucleic acid from SARS-CoV-2 in a nasopharyngeal swab specimen collected from individuals suspected of COVID-19 by their healthcare provider.This test has not been Food and Drug Administration (FDA) cleared or approved. This is a modified version of an approved Emergency Use Authorization (EUA) and is in the process of review by the FDA. Once authorized by the FDA, the issued EUA will be effective until the declaration that circumstances exist justifying the authorization of the emergency use ofin vitro diagnostic tests for detection and/or diagnosis of COVID-19 is terminated under Section 564(b)(2) of the Act or the EUA is revoked under Section 564(g) of the Act.Fact Sheet for Healthcare Prov iders:https://www.[employer].com/sites/default/files/product/documents/Fact_Sheet_HC _Zydvoruzx_Ozjn_TLKP-CkK-8.pdfFact Sheet for Healthcare Patients:https://www.[employer].com/sites/default/files/product/docume nts/Uqcg_Pcikh_Grlkmscp_Wnby_UXOG-GcS-3.pdfPerforming Laboratory:[facility], [place] [address]Lqatxrnmm culture 2022-03-08 11:47:33 Test Item Value Reference Range Interpretation Comments Result (test code = No anaerobes isolated 6463-4) [facility] [id number] 11:47:33 Test Item Value Reference Range Interpretation Comments Result (test code = No anaerobes isolated 6463-4) [facility] [id number] 11:47:33 Test Item Value Reference Range Interpretation Comments CULTURE (BEAKER) (test No anaerobes isolated code = 1095) ANAEROBIC [id number] 11:47:26 Test Item Value Reference Range Interpretation Comments CULTURE (BEAKER) (test No anaerobes isolated code = 1095) RAD, CHEST, 1 VIEW, NON [id number] 07:45:00Reason for exam:->s/p [facility] : 2000 Sex: MFINAL REPORT History: Mitral valve replacement, pneumothorax. FINDINGS: Comparedwith March 07, 2022, left chest tube is been removed. No pneumothorax is identified. Right chest tube and right upper extremity PICC line positions are unchanged. Lung volumes remain low with increasedopacity in the lung bases, likely atelectasis. Mild increased pulmonary vascularity is present without overt edema. Small right pleural effusion is suspected. Heart and mediastinum are stable. Bones are unremarkable. IMPRESSION: 1. Status post removal of left chest tube. Otherwise, stable chest. No pneumothorax. Signed: Jaye Edwards Verified Date/Time: 03/08/2022 07:45:21 Reading Location: [facility] Radiology Reading Room [id number] 06:32:10 Test Item Value Reference Range Interpretation Comments MAGNESIUM (BEAKER) (test code = 1.8 mg/dL 1.6-2.6 627) Fluid Power Mechanic ID - BSBASIC METABOLIC [id number] 06:32:09 Test Item Value Reference Range Interpretation Comments SODIUM (BEAKER) 131 meq/L 136-145 L (test code = 381) POTASSIUM (BEAKER) 3.9 meq/L 3.5-5.1 (test code = 379) CHLORIDE (BEAKER) 97 meq/L 98-107 L (test code = 382) CO2 (BEAKER) (test 28 meq/L 22-29 code = 355) BLOOD UREA NITROGEN 8 mg/dL 7-21 (BEAKER) (test code = 354) CREATININE (BEAKER) 0.52 mg/dL 0.57-1.25 L (test code = 358) GLUCOSE RANDOM 101 mg/dL 70-105 (BEAKER) (test code = 652) CALCIUM (BEAKER) 8.6 mg/dL 8.4-10.2 (test code = 697) EGFR (BEAKER) (test 197 mL/min/1.73 ESTIM ATED GFR IS code = 1092) sq m NOT ACCURATE CREATININE CLEARANCE IN PREDICTING GLOMERULAR FILTRATION RATE . ESTIMATED GFR I S NOT APPLICABLE FOR DIALYSIS PATIEN TS. Fluid Power Mechanic ID - BSCBC W/PLT COUNT & AUTO [id number] 05:38:01 Test Item Value Reference Range Interpretation Comments WHITE BLOOD CELL COUNT (BEAKER) 11.8 K/ L 3.5-10.5 H (test code = 775) RED BLOOD CELL COUNT (BEAKER) 3.97 M/ L 4.63-6.08 L (test code = 761) HEMOGLOBIN (BEAKER) (test code = 10.1 GM/DL 13.7-17.5 L 410) HEMATOCRIT (BEAKER) (test code = 34.2 % 40.1-51.0 L 411) MEAN CORPUSCULAR VOLUME (BEAKER) 86.1 fL 79.0-92.2 (test code = 753) MEAN CORPUSCULAR HEMOGLOBIN 25.4 pg 25.7-32.2 L (BEAKER) (test code = 751) MEAN CORPUSCULAR HEMOGLOBIN CONC 29.5 GM/DL 32.3-36.5 L (BEAKER) (test code = 752) RED CELL DISTRIBUTION WIDTH 19.6 % 11.6-14.4 H (BEAKER) (test code = 412) PLATELET COUNT (BEAKER) (test 415 K/CU MM 150-450 code = 756) MEAN PLATELET VOLUME (BEAKER) 8.8 fL 9.4-12.4 L (test code = 754) NUCLEATED RED BLOOD CELLS 0 /100 WBC 0-0 (BEAKER) (test code = 413) NEUTROPHILS RELATIVE PERCENT 69 % (BEAKER) (test code = 429) LYMPHOCYTES RELATIVE PERCENT 21 % (BEAKER) (test code = 430) MONOCYTES RELATIVE PERCENT 8 % (BEAKER) (test code = 431) EOSINOPHILS RELATIVE PERCENT 1 % (BEAKER) (test code = 432) BASOPHILS RELATIVE PERCENT 0 % (BEAKER) (test code = 437) NEUTROPHILS ABSOLUTE COUNT 8.15 K/ L 1.78-5.38 H (BEAKER) (test code = 670) LYMPHOCYTES ABSOLUTE COUNT 2.46 K/ L 1.32-3.57 (BEAKER) (test code = 414) MONOCYTES ABSOLUTE COUNT (BEAKER) 0.90 K/ L 0.30-0.82 H (test code = 415) EOSINOPHILS ABSOLUTE COUNT 0.10 K/ L 0.04-0.54 (BEAKER) (test code = 416) BASOPHILS ABSOLUTE COUNT (BEAKER) 0.05 K/ L 0.01-0.08 (test code = 417) IMMATURE GRANULOCYTES-RELATIVE 1 % 0-1 PERCENT (BEAKER) (test code = 2801) HEPATIC FUNCTION [id number] 08:48:11 Test Item Value Reference Range Interpretation Comments TOTAL PROTEIN (BEAKER) (test code = 5.2 gm/dL 6.0-8.3 L 770) ALBUMIN (BEAKER) (test code = 1145) 2.7 g/dL 3.5-5.0 L BILIRUBIN TOTAL (BEAKER) (test code 0.6 mg/dL 0.2-1.2 = 377) BILIRUBIN DIRECT (BEAKER) (test 0.3 mg/dL 0.1-0.5 code = 706) ALKALINE PHOSPHATASE (BEAKER) (test 98 U/L 40-150 code = 346) AST (SGOT) (BEAKER) (test code = 44 U/L 5-34 H 353) ALT (SGPT) (BEAKER) (test code = 74 U/L 6-55 H 347) Fluid Power Mechanic ID - [id number] 06:26:39 Test Item Value Reference Range Interpretation Comments MAGNESIUM (BEAKER) (test code = 1.8 mg/dL 1.6-2.6 627) Fluid Power Mechanic ID - BSBASIC METABOLIC [id number] 06:26:38 Test Item Value Reference Range Interpretation Comments SODIUM (BEAKER) 133 meq/L 136-145 L (test code = 381) POTASSIUM (BEAKER) 4.0 meq/L 3.5-5.1 (test code = 379) CHLORIDE (BEAKER) 99 meq/L 98-107 (test code = 382) CO2 (BEAKER) (test 26 meq/L 22-29 code = 355) BLOOD UREA NITROGEN 10 mg/dL 7-21 (BEAKER) (test code = 354) CREATININE (BEAKER) 0.48 mg/dL 0.57-1.25 L (test code = 358) GLUCOSE RANDOM 117 mg/dL 70-105 H (BEAKER) (test code = 652) CALCIUM (BEAKER) 8.3 mg/dL 8.4-10.2 L (test code = 697) EGFR (BEAKER) (test 216 mL/min/1.73 ESTIM ATED GFR IS code = 1092) sq m NOT ACCURATE CREATININE CLEARANCE IN PREDICTING GLOMERULAR FILTRATION RATE . ESTIMATED GFR I S NOT APPLICABLE FOR DIALYSIS PATIEN TS. Fluid Power Mechanic ID - BSCBC W/PLT COUNT & AUTO [id number] 06:08:09 Test Item Value Reference Range Interpretation Comments WHITE BLOOD CELL COUNT (BEAKER) 10.4 K/ L 3.5-10.5 (test code = 775) RED BLOOD CELL COUNT (BEAKER) 3.98 M/ L 4.63-6.08 L (test code = 761) HEMOGLOBIN (BEAKER) (test code = 10.1 GM/DL 13.7-17.5 L 410) HEMATOCRIT (BEAKER) (test code = 34.3 % 40.1-51.0 L 411) MEAN CORPUSCULAR VOLUME (BEAKER) 86.2 fL 79.0-92.2 (test code = 753) MEAN CORPUSCULAR HEMOGLOBIN 25.4 pg 25.7-32.2 L (BEAKER) (test code = 751) MEAN CORPUSCULAR HEMOGLOBIN CONC 29.4 GM/DL 32.3-36.5 L (BEAKER) (test code = 752) RED CELL DISTRIBUTION WIDTH 19.9 % 11.6-14.4 H (BEAKER) (test code = 412) PLATELET COUNT (BEAKER) (test 374 K/CU MM 150-450 code = 756) MEAN PLATELET VOLUME (BEAKER) 9.1 fL 9.4-12.4 L (test code = 754) NUCLEATED RED BLOOD CELLS 0 /100 WBC 0-0 (BEAKER) (test code = 413) NEUTROPHILS RELATIVE PERCENT 66 % (BEAKER) (test code = 429) LYMPHOCYTES RELATIVE PERCENT 23 % (BEAKER) (test code = 430) MONOCYTES RELATIVE PERCENT 8 % (BEAKER) (test code = 431) EOSINOPHILS RELATIVE PERCENT 1 % (BEAKER) (test code = 432) BASOPHILS RELATIVE PERCENT 1 % (BEAKER) (test code = 437) NEUTROPHILS ABSOLUTE COUNT 6.83 K/ L 1.78-5.38 H (BEAKER) (test code = 670) LYMPHOCYTES ABSOLUTE COUNT 2.41 K/ L 1.32-3.57 (BEAKER) (test code = 414) MONOCYTES ABSOLUTE COUNT (BEAKER) 0.88 K/ L 0.30-0.82 H (test code = 415) EOSINOPHILS ABSOLUTE COUNT 0.10 K/ L 0.04-0.54 (BEAKER) (test code = 416) BASOPHILS ABSOLUTE COUNT (BEAKER) 0.06 K/ L 0.01-0.08 (test code = 417) IMMATURE GRANULOCYTES-RELATIVE 1 % 0-1 PERCENT (BEAKER) (test code = 2801) RAD, CHEST, 1 VIEW, NON [id number] 04:39:00Reason for exam:->s/p MVR [facility] MAREK PISANO : 2000 Sex: MFINAL REPORT CLINICAL INDICATION: s/p MVR Comparison: 03/06/2022 at 1103 hours The cardiomediastinal contours are stable. The lung volumes remain low. Right greater than left parenchymal and pleural opacities are unchanged. A trace right apical pneumothorax may be present. Attentionon follow-up. Support lines, including bilateral chest tubes, are stable. Signed: Sudeep Mitchell MDReport Verified Date/Time: 03/07/2022 04:39:50 SURGICALLY OBTAINED CULTURE + GRAM STAIN 2022-03-06 14:43:32 Test Item Value Reference Range Interpretation Comments CULTURE (BEAKER) (test No growth code = 1095) GRAM STAIN RESULT 2+ WBCs (BEAKER) (test code = 1123) GRAM STAIN RESULT 3+ gram positive cocci (BEAKER) (test code = in chains, pairs and 24042) [facility] Surgically obtained culture + gram [id number] 14:42:55 Test Item Value Reference Range Interpretation Comments Result (test code = 6463-4) No growth Gram Stain Result (test No organisms seen code = 1123) [facility] gram [id number] 14:42:55 Test Item Value Reference Range Interpretation Comments Result (test code = 6463-4) No growth Gram Stain Result (test No organisms seen code = 1123) [facility] + GRAM [id number] 14:42:55 Test Item Value Reference Range Interpretation Comments CULTURE (BEAKER) (test code No growth = 1095) GRAM STAIN RESULT (BEAKER) <1+ WBCs (test code = 1123) GRAM STAIN RESULT (BEAKER) No organisms seen (test code = 63299) RAD, CHEST, 1 VIEW, NON [id number] 11:29:00Reason for exam:->post picc line insertionShould this be performed at the bedside?->[facility] 2000 Sex: MFINAL REPORT EXAM: Chest one view COMPARISON: March 06, 2022 CLINICAL HISTORY: Status post PICC insertion FINDINGS: A right arm PICC as being inserted with its tip overlying the caval atrial junction. Bilateral chest tubes are again noted. There is persistent cardiomegaly with mildright pleural effusion. The previously seen small right apical pneumothorax appears unchanged. The re gional osseous structures are unremarkable. Signed: Giovana Weiner MDReport Verified Date/Time: 03/06/2022 11:29:22 Reading Location: [facility] Radiology Reading Room OMYCIN LEVEL, [id number] 09:39:01 Test Item Value Reference Range Interpretation Comments VANCOMYCIN TROUGH (BEAKER) (test code < ug/mL 10.0-20.0 L = 522) Fluid Power Mechanic ID - ADMINArterial Doppler Arm, [id number] 09:02:42Ejection FractionSLEH ECHO HEARTLAB MKCKESSON [facility] CenterAr[facility]ial Doppler Arm, [id number] 09:02:42Ejection FractionSLEH ECHO [facility] CenterFUNGUS CULTURE, BLOOD (ISOLATOR) 2022-03-06 09:00:02 Test Item Value Reference Range Interpretation Comments CULTURE (BEAKER) (test No fungus isolated code = 1095) RAD, CHEST, 1 VIEW, NON [id number] 07:36:00Reason for exam:->s/p MVR [facility] : 2000 Sex: MFINAL REPORT RAD, CHEST, 1 VIEW, NON DEPT INDICATION: s/p MVR COMPARISON: Prior day's exam FINDINGS: Portable frontal view of the chest. IMPRESSION: Support Lines: Central catheter has been removed. Bilateral chest tubes. Lungs and pleura: Bilateral effusions, right greater than left. Bibasilar interstitial thickening. Trace right apical pneumothorax. Heart and mediastinum: Stablecontours. Stable surgical changes. Additional findings: None. Signed: Christi Bhatti Verified Date/Time: 03/06/2022 07:36:21 Reading Location: [facility] Radiology Reading Room CBC W/PLT COUNT & AUTO [id number] 07:08:24 Test Item Value Reference Range Interpretation Comments WHITE BLOOD CELL COUNT (BEAKER) 12.8 K/ L 3.5-10.5 H (test code = 775) RED BLOOD CELL COUNT (BEAKER) 3.82 M/ L 4.63-6.08 L (test code = 761) HEMOGLOBIN (BEAKER) (test code = 9.7 GM/DL 13.7-17.5 L 410) HEMATOCRIT (BEAKER) (test code = 31.6 % 40.1-51.0 L 411) MEAN CORPUSCULAR VOLUME (BEAKER) 82.7 fL 79.0-92.2 (test code = 753) MEAN CORPUSCULAR HEMOGLOBIN 25.4 pg 25.7-32.2 L (BEAKER) (test code = 751) MEAN CORPUSCULAR HEMOGLOBIN CONC 30.7 GM/DL 32.3-36.5 L (BEAKER) (test code = 752) RED CELL DISTRIBUTION WIDTH 20.2 % 11.6-14.4 H (BEAKER) (test code = 412) PLATELET COUNT (BEAKER) (test 301 K/CU MM 150-450 code = 756) MEAN PLATELET VOLUME (BEAKER) 9.3 fL 9.4-12.4 L (test code = 754) NUCLEATED RED BLOOD CELLS 0 /100 WBC 0-0 (BEAKER) (test code = 413) NEUTROPHILS RELATIVE PERCENT 70 % (BEAKER) (test code = 429) LYMPHOCYTES RELATIVE PERCENT 20 % (BEAKER) (test code = 430) MONOCYTES RELATIVE PERCENT 9 % (BEAKER) (test code = 431) EOSINOPHILS RELATIVE PERCENT 0 % (BEAKER) (test code = 432) BASOPHILS RELATIVE PERCENT 0 % (BEAKER) (test code = 437) NEUTROPHILS ABSOLUTE COUNT 8.90 K/ L 1.78-5.38 H (BEAKER) (test code = 670) LYMPHOCYTES ABSOLUTE COUNT 2.49 K/ L 1.32-3.57 (BEAKER) (test code = 414) MONOCYTES ABSOLUTE COUNT (BEAKER) 1.11 K/ L 0.30-0.82 H (test code = 415) EOSINOPHILS ABSOLUTE COUNT 0.05 K/ L 0.04-0.54 (BEAKER) (test code = 416) BASOPHILS ABSOLUTE COUNT (BEAKER) 0.05 K/ L 0.01-0.08 (test code = 417) IMMATURE GRANULOCYTES-RELATIVE 1 % 0-1 PERCENT (BEAKER) (test code = 2801) [id number] 06:55:08 Test Item Value Reference Range Interpretation Comments MAGNESIUM (BEAKER) (test code = 1.7 mg/dL 1.6-2.6 627) Fluid Power Mechanic ID - ASHA WBASIC METABOLIC [id number] 06:55:07 Test Item Value Reference Range Interpretation Comments SODIUM (BEAKER) 134 meq/L 136-145 L (test code = 381) POTASSIUM (BEAKER) 3.7 meq/L 3.5-5.1 (test code = 379) CHLORIDE (BEAKER) 98 meq/L 98-107 (test code = 382) CO2 (BEAKER) (test 29 meq/L 22-29 code = 355) BLOOD UREA NITROGEN 8 mg/dL 7-21 (BEAKER) (test code = 354) CREATININE (BEAKER) 0.49 mg/dL 0.57-1.25 L (test code = 358) GLUCOSE RANDOM 87 mg/dL 70-105 (BEAKER) (test code = 652) CALCIUM (BEAKER) 8.3 mg/dL 8.4-10.2 L (test code = 697) EGFR (BEAKER) (test 211 mL/min/1.73 ESTIM ATED GFR IS code = 1092) sq m NOT ACCURATE CREATININE CLEARANCE IN PREDICTING GLOMERULAR FILTRATION RATE . ESTIMATED GFR I S NOT APPLICABLE FOR DIALYSIS PATIEN TS. Fluid Power Mechanic ID - ASHA W2D Echo W/Doppler(CW/PW/Color)2022-03-05 15:35:30Ejection FractionSLEH ECHO HEARTLAB [facility]2D Echo W/Doppler(CW/PW/Color)2022-03-05 15:35:30Ejection FractionSLEH ECHO [facility] HospitalBlood [facility], [id number] 04:49:58 Test Item Value Reference Range Interpretation Comments pH, Arterial (test code 7.47 7.35-7.45 H = 2744-1) pCO2, Arterial (test 38 See_Comment [Autom ated message] code = 2019-8) The system [facility] generated this result transmit zach reference range : 35 - 45 mm Hg. The reference range was not used to interpret this result as normal/abnormal . pO2, Arterial (test 158 See_Comment H [Automa zach message] code = 2703-7) The system [employer] generated this result transmit zach reference range : 80 - 90 mm Hg. The reference range was not used to interpret this result as normal/abnormal . O2 Sat, Arterial (test 99.1 % 96.0-97.0 H code = 2708-6) HCO3, Arterial (test 27 mmol/L 21-29 code = 1960-4) Base Excess, Arterial 3.1 mmol/L -2.0-3.0 H (test code = 1925-7) Patient Temperature 37.0 (test code = 8310-5) FIO2 (test code = 1819) 21 Lab Interpretation Abnormal (test code = 43818-1) [facility] [id number] 04:49:58 Test Item Value Reference Range Interpretation Comments pH, Arterial (test code 7.47 7.35-7.45 H = 2744-1) pCO2, Arterial (test 38 See_Comment [Autom ated message] code = 2019-8) The system [facility] generated this result transmit zach reference range : 35 - 45 mm Hg. The reference range was not used to interpret this result as normal/abnormal . pO2, Arterial (test 158 See_Comment H [Automa zach message] code = 2703-7) The system [facility] generated this result transmit zach reference range : 80 - 90 mm Hg. The reference range was not used to interpret this result as normal/abnormal . O2 Sat, Arterial (test 99.1 % 96.0-97.0 H code = 2708-6) HCO3, Arterial (test 27 mmol/L -29 code = 1960-4) Base Excess, Arterial 3.1 mmol/L -2.0-3.0 H (test code = 1925-7) Patient Temperature 37.0 (test code = 8310-5) FIO2 (test code = 1819) 21 Lab Interpretation Abnormal (test code = 77560-6) [facility] Hospital[facility] GAS, [id number] 04:49:58 Test Item Value Reference Range Interpretation Comments PH ARTERIAL (BEAKER) (test code = 7.47 7.35-7.45 H 383) PCO2 ARTERIAL (BEAKER) (test code 38 mm Hg 35-45 = 384) PO2 ARTERIAL (BEAKER) (test code = 158 mm Hg 80-90 H 385) O2 SATURATION ARTERIAL (BEAKER) 99.1 % 96.0-97.0 H (test code = 386) HCO3 ARTERIAL (BEAKER) (test code 27 mmol/L -29 = 388) BASE EXCESS ARTERIAL (BEAKER) 3.1 mmol/L -2.0-3.0 H (test code = 387) PATIENT TEMPERATURE (BEAKER) (test 37.0 code = 1818) FIO2 (BEAKER) (test code = 1819) 21.0 CALCIUM, [id number] 04:44:55 Test Item Value Reference Range Interpretation Comments CALCIUM IONIZED (BEAKER) (test 1.12 mmol/L 1.12-1.27 code = 698) PH, BLOOD (BEAKER) (test code = 7.47 1810) [id number] 04:40:55 Test Item Value Reference Range Interpretation Comments PHOSPHORUS (BEAKER) (test code = 2.6 mg/dL 2.3-4.7 604) Fluid Power Mechanic ID - CLIVE [id number] 04:40:54 Test Item Value Reference Range Interpretation Comments MAGNESIUM (BEAKER) (test code = 1.8 mg/dL 1.6-2.6 627) Fluid Power Mechanic ID - CLIVE GBASIC METABOLIC [id number] 04:40:53 Test Item Value Reference Range Interpretation Comments SODIUM (BEAKER) 136 meq/L 136-145 (test code = 381) POTASSIUM (BEAKER) 4.0 meq/L 3.5-5.1 (test code = 379) CHLORIDE (BEAKER) 103 meq/L 98-107 (test code = 382) CO2 (BEAKER) (test 27 meq/L 22-29 code = 355) BLOOD UREA NITROGEN 11 mg/dL 7-21 (BEAKER) (test code = 354) CREATININE (BEAKER) 0.43 mg/dL 0.57-1.25 L (test code = 358) GLUCOSE RANDOM 89 mg/dL 70-105 (BEAKER) (test code = 652) CALCIUM (BEAKER) 8.5 mg/dL 8.4-10.2 (test code = 697) EGFR (BEAKER) (test 245 mL/min/1.73 ESTIM ATED GFR IS code = 1092) sq m NOT ACCURATE CREATININE CLEARANCE IN PREDICTING GLOMERULAR FILTRATION RATE . ESTIMATED GFR I S NOT APPLICABLE FOR DIALYSIS PATIEN TS. Fluid Power Mechanic ID - CLIVE GHEPATIC FUNCTION [id number] 04:37:34 Test Item Value Reference Range Interpretation Comments TOTAL PROTEIN (BEAKER) (test code = 5.1 gm/dL 6.0-8.3 L 770) ALBUMIN (BEAKER) (test code = 1145) 2.7 g/dL 3.5-5.0 L BILIRUBIN TOTAL (BEAKER) (test code 0.9 mg/dL 0.2-1.2 = 377) BILIRUBIN DIRECT (BEAKER) (test 0.5 mg/dL 0.1-0.5 code = 706) ALKALINE PHOSPHATASE (BEAKER) (test 77 U/L 40-150 code = 346) AST (SGOT) (BEAKER) (test code = 31 U/L 5-34 353) ALT (SGPT) (BEAKER) (test code = 102 U/L 6-55 H 347) Fluid Power Mechanic ID - CLIVE GCBC W/PLT COUNT & AUTO [id number] 04:36:26 Test Item Value Reference Range Interpretation Comments WHITE BLOOD CELL COUNT (BEAKER) 14.4 K/ L 3.5-10.5 H (test code = 775) RED BLOOD CELL COUNT (BEAKER) 3.26 M/ L 4.63-6.08 L (test code = 761) HEMOGLOBIN (BEAKER) (test code = 8.3 GM/DL 13.7-17.5 L 410) HEMATOCRIT (BEAKER) (test code = 28.0 % 40.1-51.0 L 411) MEAN CORPUSCULAR VOLUME (BEAKER) 85.9 fL 79.0-92.2 (test code = 753) MEAN CORPUSCULAR HEMOGLOBIN 25.5 pg 25.7-32.2 L (BEAKER) (test code = 751) MEAN CORPUSCULAR HEMOGLOBIN CONC 29.6 GM/DL 32.3-36.5 L (BEAKER) (test code = 752) RED CELL DISTRIBUTION WIDTH 20.6 % 11.6-14.4 H (BEAKER) (test code = 412) PLATELET COUNT (BEAKER) (test 204 K/CU MM 150-450 code = 756) MEAN PLATELET VOLUME (BEAKER) 10.5 fL 9.4-12.4 (test code = 754) NUCLEATED RED BLOOD CELLS 0 /100 WBC 0-0 (BEAKER) (test code = 413) NEUTROPHILS RELATIVE PERCENT 75 % (BEAKER) (test code = 429) LYMPHOCYTES RELATIVE PERCENT 16 % (BEAKER) (test code = 430) MONOCYTES RELATIVE PERCENT 7 % (BEAKER) (test code = 431) EOSINOPHILS RELATIVE PERCENT 0 % (BEAKER) (test code = 432) BASOPHILS RELATIVE PERCENT 0 % (BEAKER) (test code = 437) NEUTROPHILS ABSOLUTE COUNT 10.73 K/ L 1.78-5.38 H (BEAKER) (test code = 670) LYMPHOCYTES ABSOLUTE COUNT 2.33 K/ L 1.32-3.57 (BEAKER) (test code = 414) MONOCYTES ABSOLUTE COUNT (BEAKER) 0.96 K/ L 0.30-0.82 H (test code = 415) EOSINOPHILS ABSOLUTE COUNT 0.04 K/ L 0.04-0.54 (BEAKER) (test code = 416) BASOPHILS ABSOLUTE COUNT (BEAKER) 0.06 K/ L 0.01-0.08 (test code = 417) IMMATURE GRANULOCYTES-RELATIVE 2 % 0-1 H PERCENT (BEAKER) (test code = 2801) [id number] 04:25:05 Test Item Value Reference Range Interpretation Comments PARTIAL THROMBOPLASTIN TIME 34.4 seconds 22.5-36.0 (BEAKER) (test code = 760) PROTHROMBIN TIME/[id number] 04:24:26 Test Item Value Reference Range Interpretation Comments PROTIME (BEAKER) 16.3 seconds 11.9-14.2 H (test code = 759) INR (BEAKER) (test 1.33 See_Comment [Automat ed message] code = 370) The system [employer] generated this result transmitted ref erence range: <=5.90. The reference range was not used to int erpret this result as normal/abnormal . RECOMMENDED COUMADIN/WARFARIN INR THERAPY RANGESSTANDARD DOSE: 2.0 - 3.0 Includes: PROPHYLAXIS for venous thrombosis, systemic embolization; TREATMENT for venous thrombosis and/or pulmonary embolus.HIGH RISK: Target INR is 2.5-3.5 for patients with mechanical heart valves.RAD, CHEST, 1 VIEW, NON [id number] 02:29:00Reason for exam:->s/p MVR [facility] MAREK PISANOLOULamxi : 2000 Sex: MFINAL REPORT EXAM: Chest one view COMPARISON: March 04, 2022 CLINICAL HISTORY: Mitral valve repair FINDINGS: The tubes and lines are unchanged in position. The cardiac size remains enlarged. There is interval worsening in right basilar atelectasis and effusion. There is no evidenceof pneumothorax. The regional osseous structures are unremarkable. Signed: Giovana Weiner MDReport V erified Date/Time: 03/05/2022 02:29:51 Prepare Leuko-Red [id number] 23:55:00 Test Item Value Reference Range Interpretation Comments CROSSMATCH (test code = 2264) COMPATIBLE Unit ABO (test code = O Pos [id number]) UNIT NUMBER (test code = [id number] 934-0) Status (test code = 4099796) READY Blood Bank Product (test code RED BLOOD CELLS = 2263) PRODUCT CODE (test code = F7545O48 933-2) [facility] Leuko-Red [id number] 23:55:00 Test Item Value Reference Range Interpretation Comments CROSSMATCH (test code = 2264) COMPATIBLE Unit ABO (test code = O Pos 8861550) UNIT NUMBER (test code = [id number] 934-0) Status (test code = 7730051) READY Blood Bank Product (test code RED BLOOD CELLS = 2263) PRODUCT CODE (test code = G3264X34 933-2) [facility] Hospital[facility] METABOLIC [id number] 06:50:52 Test Item Value Reference Range Interpretation Comments SODIUM (BEAKER) 136 meq/L 136-145 (test code = 381) POTASSIUM (BEAKER) 3.9 meq/L 3.5-5.1 (test code = 379) CHLORIDE (BEAKER) 103 meq/L 98-107 (test code = 382) CO2 (BEAKER) (test 27 meq/L 22-29 code = 355) BLOOD UREA NITROGEN 14 mg/dL 7-21 (BEAKER) (test code = 354) CREATININE (BEAKER) 0.54 mg/dL 0.57-1.25 L (test code = 358) GLUCOSE RANDOM 119 mg/dL 70-105 H (BEAKER) (test code = 652) CALCIUM (BEAKER) 8.6 mg/dL 8.4-10.2 (test code = 697) EGFR (BEAKER) (test 189 mL/min/1.73 ESTIM ATED GFR IS code = 1092) sq m NOT ACCURATE CREATININE CLEARANCE IN PREDICTING GLOMERULAR FILTRATION RATE . ESTIMATED GFR I S NOT APPLICABLE FOR DIALYSIS PATIEN TS. Fluid Power Mechanic ID - BSVANCOMYCIN LEVEL, [id number] 06:47:28 Test Item Value Reference Range Interpretation Comments VANCOMYCIN TROUGH (BEAKER) (test code < ug/mL 10.0-20.0 L = 522) Fluid Power Mechanic ID - BSHEPATIC FUNCTION [id number] 06:46:08 Test Item Value Reference Range Interpretation Comments TOTAL PROTEIN (BEAKER) (test code = 5.6 gm/dL 6.0-8.3 L 770) ALBUMIN (BEAKER) (test code = 1145) 3.2 g/dL 3.5-5.0 L BILIRUBIN TOTAL (BEAKER) (test code 1.1 mg/dL 0.2-1.2 = 377) BILIRUBIN DIRECT (BEAKER) (test 0.6 mg/dL 0.1-0.5 H code = 706) ALKALINE PHOSPHATASE (BEAKER) (test 82 U/L 40-150 code = 346) AST (SGOT) (BEAKER) (test code = 42 U/L 5-34 H 353) ALT (SGPT) (BEAKER) (test code = 126 U/L 6-55 H 347) Fluid Power Mechanic ID - [id number] 06:46:07 Test Item Value Reference Range Interpretation Comments MAGNESIUM (BEAKER) (test code = 2.0 mg/dL 1.6-2.6 627) Fluid Power Mechanic ID - [id number] 06:46:07 Test Item Value Reference Range Interpretation Comments PHOSPHORUS (BEAKER) (test code = 2.4 mg/dL 2.3-4.7 604) Fluid Power Mechanic ID - [id number] 05:43:17 Test Item Value Reference Range Interpretation Comments PARTIAL THROMBOPLASTIN TIME 33.3 seconds 22.5-36.0 (BEAKER) (test code = 760) PROTHROMBIN TIME/[id number] 05:42:34 Test Item Value Reference Range Interpretation Comments PROTIME (BEAKER) 17.4 seconds 11.9-14.2 H (test code = 759) INR (BEAKER) (test 1.45 See_Comment [Automat ed message] code = 370) The system [employer] generated this result transmitted ref erence range: <=5.90. The reference range was not used to int erpret this result as normal/abnormal . RECOMMENDED COUMADIN/WARFARIN INR THERAPY RANGESSTANDARD DOSE: 2.0 - 3.0 Includes: PROPHYLAXIS for venous thrombosis, systemic embolization; TREATMENT for venous thrombosis and/or pulmonary embolus.HIGH RISK: Target INR is 2.5-3.5 for patients with mechanical heart valves.CBC W/PLT COUNT & AUTO [id number] 05:39:13 Test Item Value Reference Range Interpretation Comments WHITE BLOOD CELL COUNT (BEAKER) 18.7 K/ L 3.5-10.5 H (test code = 775) RED BLOOD CELL COUNT (BEAKER) 3.17 M/ L 4.63-6.08 L (test code = 761) HEMOGLOBIN (BEAKER) (test code = 8.1 GM/DL 13.7-17.5 L 410) HEMATOCRIT (BEAKER) (test code = 27.5 % 40.1-51.0 L 411) MEAN CORPUSCULAR VOLUME (BEAKER) 86.8 fL 79.0-92.2 (test code = 753) MEAN CORPUSCULAR HEMOGLOBIN 25.6 pg 25.7-32.2 L (BEAKER) (test code = 751) MEAN CORPUSCULAR HEMOGLOBIN CONC 29.5 GM/DL 32.3-36.5 L (BEAKER) (test code = 752) RED CELL DISTRIBUTION WIDTH 20.9 % 11.6-14.4 H (BEAKER) (test code = 412) PLATELET COUNT (BEAKER) (test 177 K/CU MM 150-450 code = 756) MEAN PLATELET VOLUME (BEAKER) 10.8 fL 9.4-12.4 (test code = 754) NUCLEATED RED BLOOD CELLS 0 /100 WBC 0-0 (BEAKER) (test code = 413) NEUTROPHILS RELATIVE PERCENT 82 % (BEAKER) (test code = 429) LYMPHOCYTES RELATIVE PERCENT 10 % (BEAKER) (test code = 430) MONOCYTES RELATIVE PERCENT 7 % (BEAKER) (test code = 431) EOSINOPHILS RELATIVE PERCENT 0 % (BEAKER) (test code = 432) BASOPHILS RELATIVE PERCENT 0 % (BEAKER) (test code = 437) NEUTROPHILS ABSOLUTE COUNT 15.20 K/ L 1.78-5.38 H (BEAKER) (test code = 670) LYMPHOCYTES ABSOLUTE COUNT 1.87 K/ L 1.32-3.57 (BEAKER) (test code = 414) MONOCYTES ABSOLUTE COUNT (BEAKER) 1.22 K/ L 0.30-0.82 H (test code = 415) EOSINOPHILS ABSOLUTE COUNT 0.02 K/ L 0.04-0.54 L (BEAKER) (test code = 416) BASOPHILS ABSOLUTE COUNT (BEAKER) 0.04 K/ L 0.01-0.08 (test code = 417) IMMATURE GRANULOCYTES-RELATIVE 2 % 0-1 H PERCENT (BEAKER) (test code = 2801) BLOOD GAS, [id number] 05:28:53 Test Item Value Reference Range Interpretation Comments PH ARTERIAL (BEAKER) (test code = 7.49 7.35-7.45 H 383) PCO2 ARTERIAL (BEAKER) (test code 37 mm Hg 35-45 = 384) PO2 ARTERIAL (BEAKER) (test code = 154 mm Hg 80-90 H 385) O2 SATURATION ARTERIAL (BEAKER) 99.1 % 96.0-97.0 H (test code = 386) HCO3 ARTERIAL (BEAKER) (test code 27 mmol/L 21-29 = 388) BASE EXCESS ARTERIAL (BEAKER) 3.8 mmol/L -2.0-3.0 H (test code = 387) PATIENT TEMPERATURE (BEAKER) (test 37.0 code = 1818) FIO2 (BEAKER) (test code = 1819) 21.0 CALCIUM, [id number] 05:26:14 Test Item Value Reference Range Interpretation Comments CALCIUM IONIZED (BEAKER) (test 1.15 mmol/L 1.12-1.27 code = 698) PH, BLOOD (BEAKER) (test code = 7.49 1810) RAD, CHEST, 1 VIEW, NON [id number] 04:09:00Reason for exam:->s/p [facility] 2000 Sex: MFINAL REPORT CLINICAL INDICATION: s/p MVR Comparison: 03/03/2022 at 0813 hours The cardiomediastinal contours are stable. The lung volumes have decreased after extubation. Central vascular engorgement is similar to previous. There is a small right pleural effusion. Retrocardiac opacity may reflect a combination of atelectasis and edema. Pneumonitis should be excluded clinically. There is a trace right apical pneumothorax. Remaining support lines, including a right chest tube, are stable. Signed: [facility] Verified Date/Time: 03/04/2022 04:09:17 Prepare [id number] 23:56:00 Test Item Value Reference Range Interpretation Comments Unit ABO (test code = 9970569) O Pos UNIT NUMBER (test code = [id number] 934-0) Status (test code = 8893441) TX_TIMEINCHART Blood Bank Product (test code FFP = 2263) PRODUCT CODE (test code = G7105V37 933-2) [facility] [id number] 23:56:00 Test Item Value Reference Range Interpretation Comments Unit ABO (test code = 3004252) O Pos UNIT NUMBER (test code = [id number] 934-0) Status (test code = 0452300) TX_TIMEINCHART Blood Bank Product (test code FFP = 2263) PRODUCT CODE (test code = K4850X98 933-2) [facility]PLT COUNT & AUTO [id number] 20:47:38 Test Item Value Reference Range Interpretation Comments WHITE BLOOD CELL COUNT (BEAKER) 22.0 K/ L 3.5-10.5 H (test code = 775) RED BLOOD CELL COUNT (BEAKER) 3.08 M/ L 4.63-6.08 L (test code = 761) HEMOGLOBIN (BEAKER) (test code = 7.8 GM/DL 13.7-17.5 L 410) HEMATOCRIT (BEAKER) (test code = 26.8 % 40.1-51.0 L 411) MEAN CORPUSCULAR VOLUME (BEAKER) 87.0 fL 79.0-92.2 (test code = 753) MEAN CORPUSCULAR HEMOGLOBIN 25.3 pg 25.7-32.2 L (BEAKER) (test code = 751) MEAN CORPUSCULAR HEMOGLOBIN CONC 29.1 GM/DL 32.3-36.5 L (BEAKER) (test code = 752) RED CELL DISTRIBUTION WIDTH 21.1 % 11.6-14.4 H (BEAKER) (test code = 412) PLATELET COUNT (BEAKER) (test 144 K/CU MM 150-450 L code = 756) MEAN PLATELET VOLUME (BEAKER) 11.0 fL 9.4-12.4 (test code = 754) NUCLEATED RED BLOOD CELLS 0 /100 WBC 0-0 (BEAKER) (test code = 413) POC-Glucose [id number] 18:59:54 Test Item Value Reference Range Interpretation Comments POC-Glucose Meter (test 152 mg/dL 70-110 H : TE STED AT [facility] code = 1538) [address] [place] [address], [facility] 30: Fluid Power Mechanic/Techni pola ID = [id number] for Machine Strap Buckler (contrac t), [facility] Lab Interpretation (test Abnormal code = 00194-8) [facility] [id number] 18:59:54 Test Item Value Reference Range Interpretation Comments POC-Glucose Meter (test 152 mg/dL 70-110 H : TE STED AT [facility] code = 1538) [address] [place] [address], 770 30: Fluid Power Mechanic/Techni pola ID = [id number] for Machine Strap Buckler (contrac t), [facility] Interpretation (test Abnormal code = 11314-4) [facility] [id number] 18:59:54 Test Item Value Reference Range Interpretation Comments POC-GLUCOSE METER 152 mg/dL 70-110 H : TESTED A T [facility] 6720 (BEAKER) (test code = MAGEN Givens [facility], 1538) [address]: Fluid Power Mechanic/Techni pola ID = [id number] for Pr iest (contract), Vijay helle POCT-GLUCOSE [id number] 13:44:11 Test Item Value Reference Range Interpretation Comments POC-GLUCOSE METER 138 mg/dL 70-110 H : TESTED A T [facility] 6720 (BEAKER) (test code = [facility], 1538) [address]: Fluid Power Mechanic/Techni pola ID = [id number] for Pr iest (contract), Vijay helle Lactic Acid, [id number] 09:30:53 Test Item Value Reference Range Interpretation Comments Lactate, Art (test 2.9 mmol/L 0.5-2.2 H Specimen code = 2874) slightly hemolyzed TOR (test code = TOR) Fluid Power Mechanic ID - BS Lab Interpretation Abnormal (test code = 81013-8) [facility], [id number] 09:30:53 Test Item Value Reference Range Interpretation Comments Lactate, Art (test 2.9 mmol/L 0.5-2.2 H Specimen code = 2874) slightly hemolyzed TOR (test code = TOR) Fluid Power Mechanic ID - BS Lab Interpretation Abnormal (test code = 70773-1) [facility], [id number] 09:30:53 Test Item Value Reference Range Interpretation Comments LACTATE BLOOD 2.9 mmol/L 0.5-2.2 H Specimen sligh tly ARTERIAL (2) (BEAKER) hemoly zed (test code = 2874) Fluid Power Mechanic ID - [id number] (HEMOGRAM ONLY)2022-03-03 08:47:52 Test Item Value Reference Range Interpretation Comments WHITE BLOOD CELL COUNT (BEAKER) 24.7 K/ L 3.5-10.5 H (test code = 775) RED BLOOD CELL COUNT (BEAKER) 3.07 M/ L 4.63-6.08 L (test code = 761) HEMOGLOBIN (BEAKER) (test code = 7.8 GM/DL 13.7-17.5 L 410) HEMATOCRIT (BEAKER) (test code = 25.8 % 40.1-51.0 L 411) MEAN CORPUSCULAR VOLUME (BEAKER) 84.0 fL 79.0-92.2 (test code = 753) MEAN CORPUSCULAR HEMOGLOBIN 25.4 pg 25.7-32.2 L (BEAKER) (test code = 751) MEAN CORPUSCULAR HEMOGLOBIN CONC 30.2 GM/DL 32.3-36.5 L (BEAKER) (test code = 752) RED CELL DISTRIBUTION WIDTH 22.4 % 11.6-14.4 H (BEAKER) (test code = 412) PLATELET COUNT (BEAKER) (test 146 K/CU MM 150-450 L code = 756) MEAN PLATELET VOLUME (BEAKER) 11.0 fL 9.4-12.4 (test code = 754) NUCLEATED RED BLOOD CELLS 0 /100 WBC 0-0 (BEAKER) (test code = 413) BLOOD GAS, [id number] 08:34:41 Test Item Value Reference Range Interpretation Comments PH ARTERIAL (BEAKER) (test code = 7.51 7.35-7.45 H 383) PCO2 ARTERIAL (BEAKER) (test code 33 mm Hg 35-45 L = 384) PO2 ARTERIAL (BEAKER) (test code = 181 mm Hg 80-90 H 385) O2 SATURATION ARTERIAL (BEAKER) 99.4 % 96.0-97.0 H (test code = 386) HCO3 ARTERIAL (BEAKER) (test code 25 mmol/L 21-29 = 388) BASE EXCESS ARTERIAL (BEAKER) 2.5 mmol/L -2.0-3.0 (test code = 387) PATIENT TEMPERATURE (BEAKER) (test 37.0 code = 1818) FIO2 (BEAKER) (test code = 1819) 21.0 RAD, CHEST, 1 VIEW, NON [id number] 08:34:00Reason for exam:->Evaluate for effusionShould this be performed at the bedside?->Yes [facility] : 2000 Sex: MFINAL REPORT Chest, one view HISTORY: Pleural effusion Comparison: 03/03/2022, earlier study Findings: Lungs: The underlying lungs are clear. Heart: Normal in size. Pleura: Small right pleural effusion, unchanged from prior exam. No pneumothorax is apparent. Bones: Unremarkable. Lines/tubes: Unchanged in position. Signed: Lazarus [place] Verified Date/Time: 03/03/2022 08:34 :15 Reading Location: [facility] Radiology Reading Room ANTI-MITOCHONDRIAL AB, REFLEX TO [id number] 07:48:56 Test Item Value Reference Range Interpretation Comments SCAN RESULT (test code = 1496873) (CELLAVISION MANUAL DIFF)2022-03-03 07:14:52 Test Item Value Reference Range Interpretation Comments NEUTROPHILS - REL 95 % (CELLAVISION)(BEAKER) (test code = 2816) MONOCYTES - REL 1 % (CELLAVISION)(BEAKER) (test code = 2818) METAMYELOCYTES - REL 1 % 0-0 H (CELLAVISION)(BEAKER) (test code = 2821) MYELOCYTES - REL 1 % 0-0 H (CELLAVISION)(BEAKER) (test code = 2822) BANDS - REL (CELLAVISION)(BEAKER) 2 % 0-10 (test code = 2826) NEUTROPHILS - ABS 23.75 K/ul 1.78-5.38 H (CELLAVISION)(BEAKER) (test code = 2830) MONOCYTES - ABS 0.25 K/uL 0.30-0.82 L (CELLAVISION)(BEAKER) (test code = 2832) METAMYELOCYTES - ABS 0.25 K/uL 0.00-0.00 H (CELLAVISION)(BEAKER) (test code = 2836) MYELOCYTES-ABS 0.25 K/uL 0.00-0.00 H (CELLAVISION)(BEAKER) (test code = 2837) BANDS - ABS (CELLAVISION)(BEAKER) 0.50 K/uL 0.00-0.80 (test code = 2840) TOTAL COUNTED (BEAKER) (test code 100 = 1351) WBC MORPHOLOGY (BEAKER) (test Normal code = 487) GIANT PLATELETS (BEAKER) (test Present code = 313) POLYCHROMATOPHILLIC RBCS(BEAKER) 1+ few (test code = 478) HYPOCHROMIA (BEAKER) (test code = 2+ moderate 963) ANISOCYTOSIS (BEAKER) (test code 2+ moderate = 961) MICROCYTES (BEAKER) (test code = 1+ few 965) MACROCYTES (BEAKER) (test code = 1+ few 964) POIKILOCYTES (BEAKER) (test code 1+ few = 966) ELLIPTOCYTES (BEAKER) (test code 1+ few = 962) ARTIFACT (CELLAVISION)(BEAKER) Present (test code = 3432) PLATELET CONCENTRATION Decreased (CELLAVISION)(BEAKER) (test code = 3438) Fluid Power Mechanic ID - duane Recinos comments: Slide comments:CBC W/PLT COUNT & AUTO [id number] 07:14:50 Test Item Value Reference Range Interpretation Comments WHITE BLOOD CELL COUNT (BEAKER) 25.0 K/ L 3.5-10.5 H (test code = 775) RED BLOOD CELL COUNT (BEAKER) 2.85 M/ L 4.63-6.08 L (test code = 761) HEMOGLOBIN (BEAKER) (test code = 7.3 GM/DL 13.7-17.5 L 410) HEMATOCRIT (BEAKER) (test code = 24.1 % 40.1-51.0 L 411) MEAN CORPUSCULAR VOLUME (BEAKER) 84.6 fL 79.0-92.2 (test code = 753) MEAN CORPUSCULAR HEMOGLOBIN 25.6 pg 25.7-32.2 L (BEAKER) (test code = 751) MEAN CORPUSCULAR HEMOGLOBIN CONC 30.3 GM/DL 32.3-36.5 L (BEAKER) (test code = 752) RED CELL DISTRIBUTION WIDTH 22.6 % 11.6-14.4 H (BEAKER) (test code = 412) PLATELET COUNT (BEAKER) (test 129 K/CU MM 150-450 L code = 756) MEAN PLATELET VOLUME (BEAKER) 10.8 fL 9.4-12.4 (test code = 754) NUCLEATED RED BLOOD CELLS 0 /100 WBC 0-0 (BEAKER) (test code = 413) TSH/FREE T4 IF [id number] 06:11:11 Test Item Value Reference Range Interpretation Comments THYROID STIMULATING HORMONE 2.794 uIU/mL 0.350-4.940 (BEAKER) (test code = 772) Fluid Power Mechanic ID - BSHEPATIC FUNCTION [id number] 05:50:04 Test Item Value Reference Range Interpretation Comments TOTAL PROTEIN (BEAKER) (test code = 5.8 gm/dL 6.0-8.3 L 770) ALBUMIN (BEAKER) (test code = 1145) 3.5 g/dL 3.5-5.0 BILIRUBIN TOTAL (BEAKER) (test code 1.4 mg/dL 0.2-1.2 H = 377) BILIRUBIN DIRECT (BEAKER) (test 0.9 mg/dL 0.1-0.5 H code = 706) ALKALINE PHOSPHATASE (BEAKER) (test 81 U/L 40-150 code = 346) AST (SGOT) (BEAKER) (test code = 66 U/L 5-34 H 353) ALT (SGPT) (BEAKER) (test code = 160 U/L 6-55 H 347) Fluid Power Mechanic ID - [id number] 05:50:03 Test Item Value Reference Range Interpretation Comments MAGNESIUM (BEAKER) (test code = 2.2 mg/dL 1.6-2.6 627) Fluid Power Mechanic ID - [id number] 05:50:03 Test Item Value Reference Range Interpretation Comments PHOSPHORUS (BEAKER) (test code = 2.6 mg/dL 2.3-4.7 604) Fluid Power Mechanic ID - BSBASIC METABOLIC [id number] 05:50:02 Test Item Value Reference Range Interpretation Comments SODIUM (BEAKER) 144 meq/L 136-145 (test code = 381) POTASSIUM (BEAKER) 3.6 meq/L 3.5-5.1 (test code = 379) CHLORIDE (BEAKER) 107 meq/L 98-107 (test code = 382) CO2 (BEAKER) (test 24 meq/L 22-29 code = 355) BLOOD UREA NITROGEN 18 mg/dL 7-21 (BEAKER) (test code = 354) CREATININE (BEAKER) 0.74 mg/dL 0.57-1.25 (test code = 358) GLUCOSE RANDOM 194 mg/dL 70-105 H (BEAKER) (test code = 652) CALCIUM (BEAKER) 8.8 mg/dL 8.4-10.2 (test code = 697) EGFR (BEAKER) (test 131 mL/min/1.73 ESTIM ATED GFR IS code = 1092) sq m NOT ACCURATE CREATININE CLEARANCE IN PREDICTING GLOMERULAR FILTRATION RATE . ESTIMATED GFR I S NOT APPLICABLE FOR DIALYSIS PATIEN TS. Fluid Power Mechanic ID - BSLACTIC ACID, [id number] 05:38:12 Test Item Value Reference Range Interpretation Comments LACTATE BLOOD ARTERIAL (2) 3.8 mmol/L 0.5-2.2 H (BEAKER) (test code = 2874) Fluid Power Mechanic ID - BSPROTHROMBIN TIME/[id number] 05:31:13 Test Item Value Reference Range Interpretation Comments PROTIME (BEAKER) 17.9 seconds 11.9-14.2 H (test code = 759) INR (BEAKER) (test 1.51 See_Comment [Automat ed message] code = 370) The system [employer] generated this result transmitted ref erence range: <=5.90. The reference range was not used to int erpret this result as normal/abnormal . RECOMMENDED COUMADIN/WARFARIN INR THERAPY RANGESSTANDARD DOSE: 2.0 - 3.0 Includes: PROPHYLAXIS for venous thrombosis, systemic embolization; TREATMENT for venous thrombosis and/or pulmonary embolus.HIGH RISK: Target INR is 2.5-3.5 for patients with mechanical heart valves.CALCIUM, [id number] 04:48:17 Test Item Value Reference Range Interpretation Comments CALCIUM IONIZED (BEAKER) (test 1.12 mmol/L 1.12-1.27 code = 698) PH, BLOOD (BEAKER) (test code = 7.49 1810) Sodium Na-Stat [id number] 04:48:03 Test Item Value Reference Range Interpretation Comments Sodium (test code = 2951-2) 142 meq/L 136-145 Lab Interpretation (test code = Normal 24331-7[facility] [id number] 04:48:03 Test Item Value Reference Range Interpretation Comments Sodium (test code = 2951-2) 142 meq/L 136-145 Lab Interpretation (test code = Normal 55003-1) [facility] [id number] 04:48:03 Test Item Value Reference Range Interpretation Comments SODIUM (BEAKER) (test code = 381) 142 meq/L 136-145 HGB/HCT (H&H)-Stat [id number] 04:47:05 Test Item Value Reference Range Interpretation Comments Hemoglobin (test code = 8.0 See_Comment L [Au tomated message] 786-4) The system [employer] generated this result transmitted ref erence range: 13.0 - 1 6.8 GM/DL. The refe rence range was not u sed to interpret this result as normal/abnor mal. Hematocrit (test code = 24.0 % 40.0-50.0 L 4544-3) Lab Interpretation (test Abnormal code = 11839-3) [facility] [id number] 04:47:05 Test Item Value Reference Range Interpretation Comments Hemoglobin (test code = 8.0 See_Comment L [Au tomated message] 786-4) The system [employer] generated this result transmitted ref erence range: 13.0 - 1 6.8 GM/DL. The refe rence range was not u sed to interpret this result as normal/abnor mal. Hematocrit (test code = 24.0 % 40.0-50.0 L 4544-3) Lab Interpretation (test Abnormal code = 46992-5) [facility] [id number] 04:47:05 Test Item Value Reference Range Interpretation Comments HEMOGLOBIN (BEAKER) (test code = 8.0 GM/DL 13.0-16.8 L 410) HEMATOCRIT (BEAKER) (test code = 24.0 % 40.0-50.0 L 411) Glucose-Stat [id number] 04:47:04 Test Item Value Reference Range Interpretation Comments Glucose (test code = 2345-7) 198 mg/dL 70-110 H Lab Interpretation (test code = Abnormal 94355-5) [facility] [id number] 04:47:04 Test Item Value Reference Range Interpretation Comments Potassium (test code = 2823-3) 3.5 meq/L 3.6-5.5 L Lab Interpretation (test code = Abnormal 66640-1) [facility] [id number] 04:47:04 Test Item Value Reference Range Interpretation Comments Glucose (test code = 2345-7) 198 mg/dL 70-110 H Lab Interpretation (test code = Abnormal 87180-0) [facility] [id number] 04:47:04 Test Item Value Reference Range Interpretation Comments Potassium (test code = 2823-3) 3.5 meq/L 3.6-5.5 L Lab Interpretation (test code = Abnormal 33347-5) [facility] [id number] 04:47:04 Test Item Value Reference Range Interpretation Comments POTASSIUM (BEAKER) (test code = 3.5 meq/L 3.6-5.5 L 379) GLUCOSE-STAT [id number] 04:47:04 Test Item Value Reference Range Interpretation Comments GLUCOSE RANDOM (BEAKER) (test code 198 mg/dL 70-110 H = 652) BLOOD GAS, [id number] 04:47:03 Test Item Value Reference Range Interpretation Comments PH ARTERIAL (BEAKER) (test code = 7.49 7.35-7.45 H 383) PCO2 ARTERIAL (BEAKER) (test code 34 mm Hg 35-45 L = 384) PO2 ARTERIAL (BEAKER) (test code = 179 mm Hg 80-90 H 385) O2 SATURATION ARTERIAL (BEAKER) 99.4 % 96.0-97.0 H (test code = 386) HCO3 ARTERIAL (BEAKER) (test code 25 mmol/L 21-29 = 388) BASE EXCESS ARTERIAL (BEAKER) 2.1 mmol/L -2.0-3.0 (test code = 387) PATIENT TEMPERATURE (BEAKER) (test 36.7 code = 1818) FIO2 (BEAKER) (test code = 1819) 40.0 RAD, CHEST, 1 VIEW, NON [id number] 04:25:00while patient is intubated or has chest tubes.Reason for exam:->Status post CV SurgeryShould thisbe performed at the bedside?->Yes [facility] PISANOLaxmi : 2000 Sex: MFINAL REPORT CLINICAL INDICATION: Status post CV Surgery Comparison: 03/02/2022 at 2121 hours There is decreasing pneumopericardium. The cardiomediastinal contours are otherwise stable. Bilateral parenchymal and right pleural opacities are similar to previous. There is no pneumothorax. Support lines are stable. Signed: Sudeep Mitchell [facility] Verified Date/Time: 03/03/2022 04:25:58 /HCT (H&H) - STAT [id number] 03:00:35 Test Item Value Reference Range Interpretation Comments HEMOGLOBIN (BEAKER) (test code = 8.4 GM/DL 13.0-16.8 L 410) HEMATOCRIT (BEAKER) (test code = 25.0 % 40.0-50.0 L 411) BLOOD GAS, [id number] 03:00:34 Test Item Value Reference Range Interpretation Comments PH ARTERIAL (BEAKER) (test code = 7.47 7.35-7.45 H 383) PCO2 ARTERIAL (BEAKER) (test code 31 mm Hg 35-45 L = 384) PO2 ARTERIAL (BEAKER) (test code 188 mm Hg 80-90 H = 385) O2 SATURATION ARTERIAL (BEAKER) 99.4 % 96.0-97.0 H (test code = 386) HCO3 ARTERIAL (BEAKER) (test code 22 mmol/L 21-29 = 388) BASE EXCESS ARTERIAL (BEAKER) -1.4 mmol/L -2.0-3.0 (test code = 387) PATIENT TEMPERATURE (BEAKER) 37.2 (test code = 1818) FIO2 (BEAKER) (test code = 1819) 40.0 GLUCOSE-STAT [id number] 03:00:34 Test Item Value Reference Range Interpretation Comments GLUCOSE RANDOM (BEAKER) (test code 202 mg/dL 70-110 H = 652) SODIUM NA-STAT [id number] 02:56:45 Test Item Value Reference Range Interpretation Comments SODIUM (BEAKER) (test code = 381) 140 meq/L 136-145 POTASSIUM-STAT [id number] 02:56:45 Test Item Value Reference Range Interpretation Comments POTASSIUM (BEAKER) (test code = 3.6 meq/L 3.6-5.5 379) [id number] 01:36:12 Test Item Value Reference Range Interpretation Comments PARTIAL THROMBOPLASTIN TIME 32.3 seconds 22.5-36.0 (BEAKER) (test code = 760) LACTIC ACID, [id number] 01:32:32 Test Item Value Reference Range Interpretation Comments LACTATE BLOOD 7.0 mmol/L 0.5-2.2 HH Specimen sligh tly ARTERIAL (2) (BEAKER) hemoly zed (test code = 2874) Fluid Power Mechanic ID - BSGLUCOSE-STAT [id number] 00:53:10 Test Item Value Reference Range Interpretation Comments GLUCOSE RANDOM (BEAKER) (test code 199 mg/dL 70-110 H = 652) HGB/HCT (H&H) - STAT [id number] 00:53:10 Test Item Value Reference Range Interpretation Comments HEMOGLOBIN (BEAKER) (test code = 9.1 GM/DL 13.0-16.8 L 410) HEMATOCRIT (BEAKER) (test code = 27.0 % 40.0-50.0 L 411) BLOOD GAS, [id number] 00:53:09 Test Item Value Reference Range Interpretation Comments PH ARTERIAL (BEAKER) (test code = 7.40 7.35-7.45 383) PCO2 ARTERIAL (BEAKER) (test code 32 mm Hg 35-45 L = 384) PO2 ARTERIAL (BEAKER) (test code 191 mm Hg 80-90 H = 385) O2 SATURATION ARTERIAL (BEAKER) 99.3 % 96.0-97.0 H (test code = 386) HCO3 ARTERIAL (BEAKER) (test code 19 mmol/L 21-29 L = 388) BASE EXCESS ARTERIAL (BEAKER) -4.9 mmol/L -2.0-3.0 L (test code = 387) PATIENT TEMPERATURE (BEAKER) 36.8 (test code = 1818) FIO2 (BEAKER) (test code = 1819) 40.0 POTASSIUM-STAT [id number] 00:51:53 Test Item Value Reference Range Interpretation Comments POTASSIUM (BEAKER) (test code = 3.6 meq/L 3.6-5.5 379) SODIUM NA-STAT [id number] 00:51:52 Test Item Value Reference Range Interpretation Comments SODIUM (BEAKER) (test code = 381) 140 meq/L 136-145 (CELLAVISION MANUAL DIFF)2022-03-02 22:18:13 Test Item Value Reference Range Interpretation Comments NEUTROPHILS - REL 67 % (CELLAVISION)(BEAKER) (test code = 2816) LYMPHOCYTES - REL 6 % (CELLAVISION)(BEAKER) (test code = 2817) MONOCYTES - REL 4 % (CELLAVISION)(BEAKER) (test code = 2818) METAMYELOCYTES - REL 1 % 0-0 H (CELLAVISION)(BEAKER) (test code = 2821) MYELOCYTES - REL 2 % 0-0 H (CELLAVISION)(BEAKER) (test code = 2822) BANDS - REL (CELLAVISION)(BEAKER) 20 % 0-10 H (test code = 2826) NEUTROPHILS - ABS 21.91 K/ul 1.78-5.38 H (CELLAVISION)(BEAKER) (test code = 2830) LYMPHOCYTES - ABS 1.96 K/ul 1.32-3.57 (CELLAVISION)(BEAKER) (test code = 2831) MONOCYTES - ABS 1.31 K/uL 0.30-0.82 H (CELLAVISION)(BEAKER) (test code = 2832) METAMYELOCYTES - ABS 0.33 K/uL 0.00-0.00 H (CELLAVISION)(BEAKER) (test code = 2836) MYELOCYTES-ABS 0.65 K/uL 0.00-0.00 H (CELLAVISION)(BEAKER) (test code = 2837) BANDS - ABS (CELLAVISION)(BEAKER) 6.54 K/uL 0.00-0.80 H (test code = 2840) TOTAL COUNTED (BEAKER) (test code 100 = 1351) WBC MORPHOLOGY (BEAKER) (test Normal code = 487) GIANT PLATELETS (BEAKER) (test Present code = 313) POLYCHROMATOPHILLIC RBCS(BEAKER) 2+ moderate (test code = 478) HYPOCHROMIA (BEAKER) (test code = 2+ moderate 963) ANISOCYTOSIS (BEAKER) (test code 2+ moderate = 961) MICROCYTES (BEAKER) (test code = 1+ few 965) MACROCYTES (BEAKER) (test code = 2+ moderate 964) POIKILOCYTES (BEAKER) (test code 1+ few = 966) TEAR DROP CELLS (BEAKER) (test 1+ few code = 481) VIJAY CELLS (BEAKER) (test code = 1+ few 474) ARTIFACT (CELLAVISION)(BEAKER) Present (test code = 3432) PLATELET CONCENTRATION Adequate (CELLAVISION)(BEAKER) (test code = 3438) Fluid Power Mechanic ID - Jessica Salazar comments: Slide comments:[id number] 22:12:06 Test Item Value Reference Range Interpretation Comments PHOSPHORUS (BEAKER) (test code = 4.8 mg/dL 2.3-4.7 H 604) Fluid Power Mechanic ID - [id number] 22:12:05 Test Item Value Reference Range Interpretation Comments MAGNESIUM (BEAKER) (test code = 2.5 mg/dL 1.6-2.6 627) Fluid Power Mechanic ID - BSCOMPREHENSIVE METABOLIC [id number] 22:12:04 Test Item Value Reference Range Interpretation Comments TOTAL PROTEIN 5.8 gm/dL 6.0-8.3 L (BEAKER) (test code = 770) ALBUMIN (BEAKER) 2.8 g/dL 3.5-5.0 L (test code = 1145) ALKALINE PHOSPHATASE 109 U/L 40-150 (BEAKER) (test code = 346) BILIRUBIN TOTAL 1.4 mg/dL 0.2-1.2 H (BEAKER) (test code = 377) SODIUM (BEAKER) (test 140 meq/L 136-145 code = 381) POTASSIUM (BEAKER) 4.2 meq/L 3.5-5.1 (test code = 379) CHLORIDE (BEAKER) 106 meq/L 98-107 (test code = 382) CO2 (BEAKER) (test 20 meq/L 22-29 L code = 355) BLOOD UREA NITROGEN 17 mg/dL 7-21 (BEAKER) (test code = 354) CREATININE (BEAKER) 0.78 mg/dL 0.57-1.25 (test code = 358) GLUCOSE RANDOM 197 mg/dL 70-105 H (BEAKER) (test code = 652) CALCIUM (BEAKER) 9.1 mg/dL 8.4-10.2 (test code = 697) AST (SGOT) (BEAKER) 77 U/L 5-34 H (test code = 353) ALT (SGPT) (BEAKER) 213 U/L 6-55 H (test code = 347) EGFR (BEAKER) (test 123 ESTIMATE D GFR IS code = 1092) mL/min/1.73 sq NOT ACCURA TE m CREATININE CLEARANCE IN PREDICTING GLOMERULAR FILTRATION RATE . ESTIMATED GFR I S NOT APPLICABLE FOR DIALYSIS PATIEN TS. Fluid Power Mechanic ID - [id number] 22:00:19 Test Item Value Reference Range Interpretation Comments PARTIAL THROMBOPLASTIN TIME 31.4 seconds 22.5-36.0 (BEAKER) (test code = 760) [id number] 22:00:18 Test Item Value Reference Range Interpretation Comments FIBRINOGEN LEVEL (BEAKER) (test 274 mg/dl 225-434 code = 658) PROTHROMBIN [id number] 21:59:43 Test Item Value Reference Range Interpretation Comments PROTIME (BEAKER) 21.6 seconds 11.9-14.2 H (test code = 759) INR (BEAKER) (test 1.91 See_Comment [Automat ed message] code = 370) The system [employer] generated this result transmitted ref erence range: <=5.90. The reference range was not used to int erpret this result as normal/abnormal . RECOMMENDED COUMADIN/WARFARIN INR THERAPY RANGESSTANDARD DOSE: 2.0 - 3.0 Includes: PROPHYLAXIS for venous thrombosis, systemic embolization; TREATMENT for venous thrombosis and/or pulmonary embolus.HIGH RISK: Target INR is 2.5-3.5 for patients with mechanical heart valves.LACTIC ACID, [id number] 21:58:19 Test Item Value Reference Range Interpretation Comments LACTATE BLOOD ARTERIAL (2) 5.4 mmol/L 0.5-2.2 HH (BEAKER) (test code = 2874) Fluid Power Mechanic ID - BSPrepare [id number] 21:52:00 Test Item Value Reference Range Interpretation Comments CROSSMATCH (test code = COMPATIBLE 2263) Unit ABO (test code = O Pos 7643253) UNIT NUMBER (test code = [id number] 934-0) Status (test code = RETURNED FROM ISSUE [id number]) Blood Bank Product (test RED BLOOD CELLS code = 2263) PRODUCT CODE (test code = N6728U52 933-2) [facility] [id number] 21:52:00 Test Item Value Reference Range Interpretation Comments CROSSMATCH (test code = COMPATIBLE 2263) Unit ABO (test code = O Pos [id number]) UNIT NUMBER (test code = [id number] 934-0) Status (test code = RETURNED FROM ISSUE [id number]) Blood Bank Product (test RED BLOOD CELLS code = 2263) PRODUCT CODE (test code = [id number] 933-2) [facility]T [facility] & AUTO [id number] 21:50:51 Test Item Value Reference Range Interpretation Comments WHITE BLOOD CELL COUNT (BEAKER) 32.7 K/ L 3.5-10.5 H (test code = 775) RED BLOOD CELL COUNT (BEAKER) 3.37 M/ L 4.63-6.08 L (test code = 761) HEMOGLOBIN (BEAKER) (test code = 8.5 GM/DL 13.7-17.5 L 410) HEMATOCRIT (BEAKER) (test code = 29.9 % 40.1-51.0 L 411) MEAN CORPUSCULAR VOLUME (BEAKER) 88.7 fL 79.0-92.2 (test code = 753) MEAN CORPUSCULAR HEMOGLOBIN 25.2 pg 25.7-32.2 L (BEAKER) (test code = 751) MEAN CORPUSCULAR HEMOGLOBIN CONC 28.4 GM/DL 32.3-36.5 L (BEAKER) (test code = 752) RED CELL DISTRIBUTION WIDTH 22.7 % 11.6-14.4 H (BEAKER) (test code = 412) PLATELET COUNT (BEAKER) (test 170 K/CU MM 150-450 code = 756) MEAN PLATELET VOLUME (BEAKER) 10.5 fL 9.4-12.4 (test code = 754) NUCLEATED RED BLOOD CELLS 0 /100 WBC 0-0 (BEAKER) (test code = 413) RAD, CHEST, 1 VIEW, NON [id number] 21:49:00Reason for exam:->s/p MVRShould this be performed at the bedside?->[facility] 2000 Sex: MFINAL REPORT CLINICAL INDICATION: s/p MVR Comparison: Same dated 0600 hours There is new pneumopericardium. The cardiac silhouette is within normal limits for size. There are patchyopacities in the right mid and lower lung suggesting atelectasis. A trace right pleural effusion is present. Lucency at the right costophrenic sulcus may reflect a pneumothorax. Attention on follow-up.There is been interval placement of bilateral chest tubes. An enteric tube traverses examination to the left upper quadrant. A right IJ CVC tip overlies the SVC. There is an adjacent right IJ central venous sheath. The tip of an endotracheal tube is above the sarah at the level of the inferior clavicu lar heads. Signed: Sudeep Mitchell [facility] Verified Date/Time: 03/02/2022 21:49:17 OSE-STAT [id number] 21:44:39 Test Item Value Reference Range Interpretation Comments GLUCOSE RANDOM (BEAKER) (test code 194 mg/dL 70-110 H = 652) HGB/HCT (H&H) - STAT [id number] 21:44:39 Test Item Value Reference Range Interpretation Comments HEMOGLOBIN (BEAKER) (test code = 9.3 GM/DL 13.0-16.8 L 410) HEMATOCRIT (BEAKER) (test code = 27.0 % 40.0-50.0 L 411) BLOOD GAS, [id number] 21:44:38 Test Item Value Reference Range Interpretation Comments PH ARTERIAL (BEAKER) (test code = 7.37 7.35-7.45 383) PCO2 ARTERIAL (BEAKER) (test code 39 mm Hg 35-45 = 384) PO2 ARTERIAL (BEAKER) (test code 217 mm Hg 80-90 H = 385) O2 SATURATION ARTERIAL (BEAKER) 99.4 % 96.0-97.0 H (test code = 386) HCO3 ARTERIAL (BEAKER) (test code 23 mmol/L 21-29 = 388) BASE EXCESS ARTERIAL (BEAKER) -2.8 mmol/L -2.0-3.0 L (test code = 387) PATIENT TEMPERATURE (BEAKER) 35.0 (test code = 1818) FIO2 (BEAKER) (test code = 1819) 60.0 POTASSIUM-STAT [id number] 21:44:03 Test Item Value Reference Range Interpretation Comments POTASSIUM (BEAKER) (test code = 4.0 meq/L 3.6-5.5 379) CALCIUM, [id number] 21:44:03 Test Item Value Reference Range Interpretation Comments CALCIUM IONIZED (BEAKER) (test 1.19 mmol/L 1.12-1.27 code = 698) PH, BLOOD (BEAKER) (test code = 7.34 1810) OXYGEN SATURATION, [id number] 21:44:02 Test Item Value Reference Range Interpretation Comments O2 SATURATION (MEASURED) (BEAKER) 96.4 % (test code = 1455) SODIUM NA-STAT [id number] 21:44:02 Test Item Value Reference Range Interpretation Comments SODIUM (BEAKER) (test code = 381) 139 meq/L 136-145 POC ACTIVATED CLOTTING [id number] 21:13:20 Test Item Value Reference Range Interpretation Comments Activated Clotting Time 112 sec : 74 -137 seconds, (test code = 441) Baseline: TESTED AT [address], [address]: Fluid Power Mechanic/Techni pola ID = [id number] for Arnaud Pereirayre, [facility] [id number] 21:13:20 Test Item Value Reference Range Interpretation Comments Activated Clotting Time 112 sec : 74 -137 seconds, (test code = 441) Baseline: TESTED AT [address], [address]: Fluid Power Mechanic/Techni pola ID = [id number] for Arnaud Preeirayre, Kate [id number][id number] 21:13:20 Test Item Value Reference Range Interpretation Comments ACTIVATED CLOTTING TIME 112 sec : 74 -137 seconds, (BEAKER) (test code = Baseli ne: TESTED AT 441) [address], [address]: Fluid Power Mechanic/Techni pola ID = [id number] for Arnaud Pereirayre, Kate [id number] 21:13:20 Test Item Value Reference Range Interpretation Comments ACTIVATED CLOTTING TIME 469 sec : 74 -137 seconds, (BEAKER) (test code = Baseli ne: TESTED AT 441) [address], [address]: Fluid Power Mechanic/Techni pola ID = [id number] for Mc Kelliyre, Kate [id number] 21:12:53 Test Item Value Reference Range Interpretation Comments ACTIVATED CLOTTING TIME 475 sec : 74 -137 seconds, (BEAKER) (test code = Baseli ne: TESTED AT 441) [address], [facility] 30: Fluid Power Mechanic/Techni pola ID = [id number] for Arnaud Ruggiero Kate [id number] 21:12:52 Test Item Value Reference Range Interpretation Comments ACTIVATED CLOTTING TIME 553 sec : 74 -137 seconds, (BEAKER) (test code = Baseli ne: TESTED AT 441) [address], [facility] 30: Fluid Power Mechanic/Techni pola ID = [id number] for Arnaud Ruggiero, Kate [id number] 21:12:47 Test Item Value Reference Range Interpretation Comments ACTIVATED CLOTTING TIME 571 sec : 74 -137 seconds, (BEAKER) (test code = Baseli ne: TESTED AT 441) [address], [facility] 30: Fluid Power Mechanic/Techni pola ID = [id number] for Arnaud Ruggiero Kate [id number] 21:12:46 Test Item Value Reference Range Interpretation Comments ACTIVATED CLOTTING TIME 309 sec : 74 -137 seconds, (BEAKER) (test code = Baseli ne: TESTED AT 441) [address], [facility] 30: Fluid Power Mechanic/Techni pola ID = [id number] for Arnaud Ruggiero Kate [id number] 21:12:17 Test Item Value Reference Range Interpretation Comments ACTIVATED CLOTTING TIME 457 sec : 74 -137 seconds, (BEAKER) (test code = Baseli ne: TESTED AT 441) [address], [facility] 30: Fluid Power Mechanic/Techni pola ID = [id number] for Nolan Henninga POTASSIUM-STAT [id number] 20:31:09 Test Item Value Reference Range Interpretation Comments POTASSIUM (BEAKER) (test code = 4.4 meq/L 3.6-5.5 379) CALCIUM, [id number] 20:30:39 Test Item Value Reference Range Interpretation Comments CALCIUM IONIZED (BEAKER) (test 1.02 mmol/L 1.12-1.27 L code = 698) PH, BLOOD (BEAKER) (test code = 7.34 1810) HGB/HCT (H&H) - STAT [id number] 20:30:27 Test Item Value Reference Range Interpretation Comments HEMOGLOBIN (BEAKER) (test code = 9.0 GM/DL 13.0-16.8 L 410) HEMATOCRIT (BEAKER) (test code = 26.0 % 40.0-50.0 L 411) GLUCOSE-STAT [id number] 20:30:21 Test Item Value Reference Range Interpretation Comments GLUCOSE RANDOM (BEAKER) (test code 206 mg/dL 70-110 H = 652) BLOOD GAS, [id number] 20:30:20 Test Item Value Reference Range Interpretation Comments PH ARTERIAL (BEAKER) (test code = 7.36 7.35-7.45 383) PCO2 ARTERIAL (BEAKER) (test code 39 mm Hg 35-45 = 384) PO2 ARTERIAL (BEAKER) (test code 230 mm Hg 80-90 H = 385) O2 SATURATION ARTERIAL (BEAKER) 99.5 % 96.0-97.0 H (test code = 386) HCO3 ARTERIAL (BEAKER) (test code 22 mmol/L 21-29 = 388) BASE EXCESS ARTERIAL (BEAKER) -3.8 mmol/L -2.0-3.0 L (test code = 387) PATIENT TEMPERATURE (BEAKER) 35.9 (test code = 1818) FIO2 (BEAKER) (test code = 1819) 100.0 SODIUM NA-STAT [id number] 20:28:53 Test Item Value Reference Range Interpretation Comments SODIUM (BEAKER) (test code = 381) 137 meq/L 136-145 HGB/HCT (H&H) - STAT [id number] 19:48:28 Test Item Value Reference Range Interpretation Comments HEMOGLOBIN (BEAKER) (test code = 10.0 GM/DL 13.0-16.8 L 410) HEMATOCRIT (BEAKER) (test code = 29.0 % 40.0-50.0 L 411) BLOOD GAS, [id number] 19:48:27 Test Item Value Reference Range Interpretation Comments PH ARTERIAL (BEAKER) (test code = 7.41 7.35-7.45 383) PCO2 ARTERIAL (BEAKER) (test code 37 mm Hg 35-45 = 384) PO2 ARTERIAL (BEAKER) (test code 288 mm Hg 80-90 H = 385) O2 SATURATION ARTERIAL (BEAKER) 99.7 % 96.0-97.0 H (test code = 386) HCO3 ARTERIAL (BEAKER) (test code 23 mmol/L 21-29 = 388) BASE EXCESS ARTERIAL (BEAKER) -1.4 mmol/L -2.0-3.0 (test code = 387) PATIENT TEMPERATURE (BEAKER) 36.1 (test code = 1818) FIO2 (BEAKER) (test code = 1819) 65.0 GLUCOSE-STAT [id number] 19:48:27 Test Item Value Reference Range Interpretation Comments GLUCOSE RANDOM (BEAKER) (test code 191 mg/dL 70-110 H = 652) POTASSIUM-STAT [id number] 19:48:16 Test Item Value Reference Range Interpretation Comments POTASSIUM (BEAKER) (test code = 5.2 meq/L 3.6-5.5 379) SODIUM NA-STAT [id number] 19:48:15 Test Item Value Reference Range Interpretation Comments SODIUM (BEAKER) (test code = 381) 144 meq/L 136-145 Lactic acid, [id number] 19:31:08 Test Item Value Reference Range Interpretation Comments Lactate, Venous (test code = 2.64 mmol/L 0.50-2.20 H 2872) TOR (test code = TOR) Fluid Power Mechanic ID - BS Lab Interpretation (test Abnormal code = 44241-5) [facility] [id number] 19:31:08 Test Item Value Reference Range Interpretation Comments Lactate, Venous (test code = 2.64 mmol/L 0.50-2.20 H 2872) TOR (test code = TOR) Fluid Power Mechanic ID - BS Lab Interpretation (test Abnormal code = 45682-8) [facility], [id number] 19:31:08 Test Item Value Reference Range Interpretation Comments LACTATE BLOOD VENOUS (2) (BEAKER) 2.64 mmol/L 0.50-2.20 H (test code = 2872) Fluid Power Mechanic ID - BSBlood gas, [id number] 19:18:46 Test Item Value Reference Range Interpretation Comments pH, Tal (test code = 7.40 7.32-7.42 2746-6) pCO2, Tal (test code = 37 See_Comment L [Aut omated 755) message] The sy stem which generated this result transmitted reference range : 41 - 51 mm Hg. The reference range was not used to interpret this result as normal/abnormal . pO2, Tal (test code = 45 See_Comment H [Auto mated 2705-2) message] The sy stem which generated this result transmitted reference range : 25 - 40 mm Hg. The reference range was not used to interpret this result as normal/abnormal . O2 Sat, Tal (test code 92.8 % 40.0-70.0 H = 2711-0) HCO3, Tal (test code = 24 mmol/L 21-29 42422-2) Base Excess, Tal (test -2.7 mmol/L -2.0-3.0 L code = 1927-3) Patient Temperature 30.1 (test code = 8310-5) FIO2 (test code = 1819) 60 Lab Interpretation Abnormal (test code = 27897-7) [facility], [id number] 19:18:46 Test Item Value Reference Range Interpretation Comments pH, Tal (test code = 7.40 7.32-7.42 2746-6) pCO2, Tal (test code = 37 See_Comment L [Aut omated 755) message] The sy stem which generated this result transmitted reference range : 41 - 51 mm Hg. The reference range was not used to interpret this result as normal/abnormal . pO2, Tal (test code = 45 See_Comment H [Auto mated 2705-2) message] The sy stem which generated this result transmitted reference range : 25 - 40 mm Hg. The reference range was not used to interpret this result as normal/abnormal . O2 Sat, Tal (test code 92.8 % 40.0-70.0 H = 2711-0) HCO3, Tal (test code = 24 mmol/L 21-29 10846-9) Base Excess, Tal (test -2.7 mmol/L -2.0-3.0 L code = 1927-3) Patient Temperature 30.1 (test code = 8310-5) FIO2 (test code = 1819) 60 Lab Interpretation Abnormal (test code = 96037-6) [facility] [id number] 19:18:46 Test Item Value Reference Range Interpretation Comments PH VENOUS (BEAKER) (test code = 7.40 7.32-7.42 701) PCO2 VENOUS (BEAKER) (test code = 37 mm Hg 41-51 L 755) PO2 VENOUS (BEAKER) (test code = 45 mm Hg 25-40 H 702) O2 SATURATION VENOUS (BEAKER) 92.8 % 40.0-70.0 H (test code = 703) HCO3 VENOUS (BEAKER) (test code = 24 mmol/L 21-29 705) BASE EXCESS VENOUS (BEAKER) (test -2.7 mmol/L -2.0-3.0 L code = 704) PATIENT TEMPERATURE (BEAKER) 30.1 (test code = 1818) FIO2 (BEAKER) (test code = 1819) 60.0 LACTIC ACID, [id number] 18:47:03 Test Item Value Reference Range Interpretation Comments LACTATE BLOOD VENOUS (2) (BEAKER) 2.12 mmol/L 0.50-2.20 (test code = 2872) Fluid Power Mechanic ID - ADMINHGB/HCT (H&H) - STAT [id number] 18:41:19 Test Item Value Reference Range Interpretation Comments HEMOGLOBIN (BEAKER) (test code = 9.4 GM/DL 13.0-16.8 L 410) HEMATOCRIT (BEAKER) (test code = 28.0 % 40.0-50.0 L 411) BLOOD GAS, [id number] 18:41:18 Test Item Value Reference Range Interpretation Comments PH ARTERIAL (BEAKER) (test code = 7.41 7.35-7.45 383) PCO2 ARTERIAL (BEAKER) (test code 34 mm Hg 35-45 L = 384) PO2 ARTERIAL (BEAKER) (test code 354 mm Hg 80-90 H = 385) O2 SATURATION ARTERIAL (BEAKER) 99.8 % 96.0-97.0 H (test code = 386) HCO3 ARTERIAL (BEAKER) (test code 23 mmol/L 21-29 = 388) BASE EXCESS ARTERIAL (BEAKER) -3.6 mmol/L -2.0-3.0 L (test code = 387) PATIENT TEMPERATURE (BEAKER) 29.9 (test code = 1818) FIO2 (BEAKER) (test code = 1819) 65.0 GLUCOSE-STAT [id number] 18:41:18 Test Item Value Reference Range Interpretation Comments GLUCOSE RANDOM (BEAKER) (test code 172 mg/dL 70-110 H = 652) POTASSIUM-STAT [id number] 18:41:02 Test Item Value Reference Range Interpretation Comments POTASSIUM (BEAKER) (test code = 4.8 meq/L 3.6-5.5 379) SODIUM NA-STAT [id number] 18:41:01 Test Item Value Reference Range Interpretation Comments SODIUM (BEAKER) (test code = 381) 138 meq/L 136-145 GLUCOSE-STAT [id number] 18:15:11 Test Item Value Reference Range Interpretation Comments GLUCOSE RANDOM (BEAKER) (test code 164 mg/dL 70-110 H = 652) HGB/HCT (H&H) - STAT [id number] 18:15:11 Test Item Value Reference Range Interpretation Comments HEMOGLOBIN (BEAKER) (test code = 9.1 GM/DL 13.0-16.8 L 410) HEMATOCRIT (BEAKER) (test code = 27.0 % 40.0-50.0 L 411) BLOOD GAS, [id number] 18:15:10 Test Item Value Reference Range Interpretation Comments PH ARTERIAL (BEAKER) (test code = 7.39 7.35-7.45 383) PCO2 ARTERIAL (BEAKER) (test code 36 mm Hg 35-45 = 384) PO2 ARTERIAL (BEAKER) (test code 451 mm Hg 80-90 H = 385) O2 SATURATION ARTERIAL (BEAKER) 99.9 % 96.0-97.0 H (test code = 386) HCO3 ARTERIAL (BEAKER) (test code 23 mmol/L 21-29 = 388) BASE EXCESS ARTERIAL (BEAKER) -3.1 mmol/L -2.0-3.0 L (test code = 387) PATIENT TEMPERATURE (BEAKER) 33.1 (test code = 1818) FIO2 (BEAKER) (test code = 1819) 80.0 SODIUM NA-STAT [id number] 18:14:37 Test Item Value Reference Range Interpretation Comments SODIUM (BEAKER) (test code = 381) 137 meq/L 136-145 POTASSIUM-STAT [id number] 18:14:37 Test Item Value Reference Range Interpretation Comments POTASSIUM (BEAKER) (test code = 4.1 meq/L 3.6-5.5 379) CALCIUM, [id number] 17:11:36 Test Item Value Reference Range Interpretation Comments CALCIUM IONIZED (BEAKER) (test 1.09 mmol/L 1.12-1.27 L code = 698) PH, BLOOD (BEAKER) (test code = 7.40 1810) GLUCOSE-STAT [id number] 17:11:30 Test Item Value Reference Range Interpretation Comments GLUCOSE RANDOM (BEAKER) (test code 128 mg/dL 70-110 H = 652) HGB/HCT (H&H) - STAT [id number] 17:11:30 Test Item Value Reference Range Interpretation Comments HEMOGLOBIN (BEAKER) (test code = 10.5 GM/DL 13.0-16.8 L 410) HEMATOCRIT (BEAKER) (test code = 31.0 % 40.0-50.0 L 411) SODIUM NA-STAT [id number] 17:11:29 Test Item Value Reference Range Interpretation Comments SODIUM (BEAKER) (test code = 381) 134 meq/L 136-145 L BLOOD GAS, [id number] 17:11:28 Test Item Value Reference Range Interpretation Comments PH ARTERIAL (BEAKER) (test code = 7.43 7.35-7.45 383) PCO2 ARTERIAL (BEAKER) (test code 35 mm Hg 35-45 = 384) PO2 ARTERIAL (BEAKER) (test code 412 mm Hg 80-90 H = 385) O2 SATURATION ARTERIAL (BEAKER) 99.8 % 96.0-97.0 H (test code = 386) HCO3 ARTERIAL (BEAKER) (test code 23 mmol/L 21-29 = 388) BASE EXCESS ARTERIAL (BEAKER) -1.5 mmol/L -2.0-3.0 (test code = 387) PATIENT TEMPERATURE (BEAKER) 35.5 (test code = 1818) FIO2 (BEAKER) (test code = 1819) 100.0 POTASSIUM-STAT [id number] 17:11:02 Test Item Value Reference Range Interpretation Comments POTASSIUM (BEAKER) (test code = 4.3 meq/L 3.6-5.5 379) U/S, [id number] 15:34:00Reason for exam:->Eval right neck swelling, possible abscess vs hematomaShould this be performed at the bedside?->Yes [facility] : 2000 Sex: MFINAL REPORT TECHNIQUE: Grayscale ultrasound of the neck. INDICATION: Eval rightneck swelling, possible abscess vs hematoma. COMPARISON: CT of the neck from earlier the same day.. FINDINGS: In the right parotid region, there are hypoechoic structures which measure up to 1.3 x 0.4 x 0.4 cm. These may be lymph nodes. However, this is indeterminate. An additional, prominent lymph node in the right neck measures 1.7 x 0.4 x 1 cm and is morphologically normal. IMPRESSION: No abscess or hematoma is visualized. A hypoechoic areas in the right parotid gland were not definitely seen on the recent neck CT. A follow-up ultrasound is recommended in three months for further evaluation. Signed: Jackie Miller MDReport Verified Date/Time: 03/02/2022 15:34:34 Drug Test, General Toxicology, [id number] 13:48:01 Test Item Value Reference Interpretation Comments Range Acetone([facility]) None Detected (test code = 3053) Methanol([facility]) None Detected (test code = 3054) Drug Test,Genrl see note The followin g compounds were Tox,U (test detected: Cotin ine (Nicotine code = 1137906) Metabolite) Morphine Hydromorphone M EGx (Lidocaine Metabolite) Caf feine Methamphetamine Lidocaine Norfentanyl (Fe ntanyl Metabolite) Dex trorphan Fentanyl EDDP ( Methadone Metabolite) Met hadone Ibuprofen For a list of compounds and l imits of detection go to:http://CompareMyFare/faq /QLS753 ISOPROPANOL None Detected (test code = 3052658) ETHANOL (test None Detected Volatile Wilson it of Detection: code = 8126825) 5 mg/dL This test was developed and i ts analytical performancechar acteristics have been deter mined by [employer] [place], [place]. It hasnot been ulysses ared or approved by the U.S. Food and DrugAdministrat ion. This assay has been validated pursuantto the CLIA regulations and is used for clinicalpurpose s. TOR (test code Performing Lab = TOR) [facility] [address] [facility] [place], [place] Wing Hinkle MD, PhD [facility], General Toxicology, [id number] 13:48:01 Test Item Value Reference Interpretation Comments Range Acetone([facility]) None Detected (test code = 3053) Methanol([facility]) None Detected (test code = 3054) Drug Test,Genrl see note The followin g compounds were Tox,U (test detected: Cotin ine (Nicotine code = 9803905) Metabolite) Morphine Hydromorphone M EGx (Lidocaine Metabolite) Caf feine Methamphetamine Lidocaine Norfentanyl (Fe ntanyl Metabolite) Dex trorphan Fentanyl EDDP ( Methadone Metabolite) Met hadone Ibuprofen For a list of compounds and l imits of detection go to:http://CARGOBR.FlickIM/faq /XNH068 ISOPROPANOL None Detected (test code = 8308046) ETHANOL (test None Detected Volatile Wilson it of Detection: code = 9042894) 5 mg/dL This test was developed and i ts analytical performancechar acteristics have been deter mined by [employer] [place], [place]. It hasnot been ulysses ared or approved by the U.S. Food and DrugAdministrat ion. This assay has been validated pursuantto the CLIA regulations and is used for clinicalpurpose s. TOR (test code Performing Lab = TOR) [facility] [place] [address] [place] [address] Wing Hinkle MD, PhD [facility] [id number] 11:21:49 Test Item Value Reference Range Interpretation Comments PARTIAL THROMBOPLASTIN TIME 32.0 seconds 22.5-36.0 (BEAKER) (test code = 760) HEMOGLOBIN [id number] 11:20:03 Test Item Value Reference Range Interpretation Comments HEMOGLOBIN A1C 4.5 % See_Comment [Automated m essage] ELECTROPHORESIS (MUNA) The system which (test code = 3811) generated this result transmitted ref erence range: <=5.6%. The reference range was not used to int erpret this result as normal/abnormal . "The A1c is measured using a NGSP-certified method. HbA1c value equal to or greater than 6.5% as thediagnosis cutoff for diabetes. An HbA1c value of 5.7- 6.4% indicates increased risk for diabetes (prediabetes)."Fluid Power Mechanic ID - ADMRAD, CHEST, 1 VIEW, NON [id number] 10:33:00Reason for exam:->follow up for improvement of pulm edemaShould this be performed at the bedside?->[facility] 2000 Sex: MFINAL REPORT TECHNIQUE: Frontal view of the chest. INDICATION: follow up for improvement of pulm edema COMPARISON: 03/01/2022. FINDINGS: LINES/TUBES: Endotracheal tube is in place. Nasoenteric feeding tube is in place with the tip terminating over the expected location of the proximal duodenum.. LUNGS: Diffuse bilateral pleural-parenchymal opacities are mildly improved. No pneumothorax. HEART AND MEDIASTINUM: The cardiomediastinal silhouette is stable. SOFT TISSUES AND BONES: Unremarkable. IMPRESSION:Persistent but mildly improved pulmonary edema pattern.. Signed: Mitchell Garcia MDReport Verified Date/Time: 03/02/2022 10:33:54 Reading Location: [facility] Radiology Reading Room [id number] 10:30:50 Test Item Value Reference Range Interpretation Comments TRIGLYCERIDES (BEAKER) (test code = 78 mg/dL 540) TRIGLYCERIDE REFERENCE RANGELow Risk <150Borderline Risk 150-199High Risk 200-499Very High Risk >=500Operator ID - BSKARIUS NEXT GENERATION SEQUENCING 2022-03-02 09:42:13 Test Item Value Reference Range Interpretation Comments KARIUS NEXT GENERATION SEQUENCING (test code = 2383090) See scanned [id number] 09:26:44 Test Item Value Reference Range Interpretation Comments PARTIAL THROMBOPLASTIN TIME 172.2 seconds 22.5-36.0 HH (BEAKER) (test code = 760) BLOOD GAS, [id number] 09:08:16 Test Item Value Reference Range Interpretation Comments PH ARTERIAL (BEAKER) (test code = 7.47 7.35-7.45 H 383) PCO2 ARTERIAL (BEAKER) (test code 30 mm Hg 35-45 L = 384) PO2 ARTERIAL (BEAKER) (test code 184 mm Hg 80-90 H = 385) O2 SATURATION ARTERIAL (BEAKER) 99.4 % 96.0-97.0 H (test code = 386) HCO3 ARTERIAL (BEAKER) (test code 21 mmol/L 21-29 = 388) BASE EXCESS ARTERIAL (BEAKER) -1.9 mmol/L -2.0-3.0 (test code = 387) PATIENT TEMPERATURE (BEAKER) 36.4 (test code = 1818) FIO2 (BEAKER) (test code = 1819) 50.0 [id number] 07:21:46 Test Item Value Reference Range Interpretation Comments PARTIAL THROMBOPLASTIN TIME > seconds 22.5-36.0 HH (BEAKER) (test code = 760) CBC W/PLT COUNT & AUTO [id number] 06:17:45 Test Item Value Reference Range Interpretation Comments WHITE BLOOD CELL COUNT (BEAKER) 12.6 K/ L 3.5-10.5 H (test code = 775) RED BLOOD CELL COUNT (BEAKER) 3.88 M/ L 4.63-6.08 L (test code = 761) HEMOGLOBIN (BEAKER) (test code = 9.7 GM/DL 13.7-17.5 L 410) HEMATOCRIT (BEAKER) (test code = 33.6 % 40.1-51.0 L 411) MEAN CORPUSCULAR VOLUME (BEAKER) 86.6 fL 79.0-92.2 (test code = 753) MEAN CORPUSCULAR HEMOGLOBIN 25.0 pg 25.7-32.2 L (BEAKER) (test code = 751) MEAN CORPUSCULAR HEMOGLOBIN CONC 28.9 GM/DL 32.3-36.5 L (BEAKER) (test code = 752) RED CELL DISTRIBUTION WIDTH 23.0 % 11.6-14.4 H (BEAKER) (test code = 412) PLATELET COUNT (BEAKER) (test 265 K/CU MM 150-450 code = 756) MEAN PLATELET VOLUME (BEAKER) 10.2 fL 9.4-12.4 (test code = 754) NUCLEATED RED BLOOD CELLS 0 /100 WBC 0-0 (BEAKER) (test code = 413) NEUTROPHILS RELATIVE PERCENT 85 % (BEAKER) (test code = 429) LYMPHOCYTES RELATIVE PERCENT 8 % (BEAKER) (test code = 430) MONOCYTES RELATIVE PERCENT 1 % (BEAKER) (test code = 431) EOSINOPHILS RELATIVE PERCENT 0 % (BEAKER) (test code = 432) BASOPHILS RELATIVE PERCENT 1 % (BEAKER) (test code = 437) NEUTROPHILS ABSOLUTE COUNT 10.78 K/ L 1.78-5.38 H (BEAKER) (test code = 670) LYMPHOCYTES ABSOLUTE COUNT 1.06 K/ L 1.32-3.57 L (BEAKER) (test code = 414) MONOCYTES ABSOLUTE COUNT (BEAKER) 0.13 K/ L 0.30-0.82 L (test code = 415) EOSINOPHILS ABSOLUTE COUNT 0.01 K/ L 0.04-0.54 L (BEAKER) (test code = 416) BASOPHILS ABSOLUTE COUNT (BEAKER) 0.07 K/ L 0.01-0.08 (test code = 417) IMMATURE GRANULOCYTES-RELATIVE 5 % 0-1 H PERCENT (BEAKER) (test code = 2801) CT, SOFT TISSUE NECK, [id number] 06:12:00Unlisted Reason for Exam - Click Yes and Enter Reason Below->No [facility] : 2000 Sex: MFINAL REPORT CT Neck with contrast. CLINICAL HISTORY: External constriction, neck TECHNIQUE: Contiguous axial images of the neck with intravenous contrast. This exam was performed according to the departmental dose optimization program which includes automated exposure control, adjustment of the mA and/or kV according to the patient size, and/or use of an iterative reconstruction technique. COMPARISON: None FINDINGS:Endotracheal and enteric tubes are seen coursing inferiorly. Anasarca with soft tissue stranding seen throughout the subcutaneous soft tissues however right greater than left with edema extending into the right sternocleidomastoid muscle. No definite drainable fluidcollection is identified on this examination.. . Scattered subcentimeter lymph nodes are seen in thebilateral jugulodigastric and posterior triangle regions. The salivary glands are symmetrical and unremarkable in appearance. The aerodigestive tract is grossly patent however difficult to evaluate given instrumentation. Fluid layering in the oropharynx likely related to instrumentation. Mild soft tissue stranding within the parapharyngeal and preepiglottic fat. Trace fluid in the retropharyngeal soft tissues. Epiglottis is not well-seen on this examination due to aforementioned instrumentation. Hete rogeneous lesion in the left thoracic inlet measuring 5.4 x 2.7 cm with occlusion of the left subclavian and axial artery, incompletely characterized on this examination due to poor soft tissue differentiation. Vascular structures in the neck are patent.Visualized intracranial contents are unremarkable. Visualized intraorbital contents are unremarkable.Please see dedicated CT chest for further details on intrathoracic contents. IMPRESSION: No drainable fluid collections within the neck. Examination limited by endotracheal and enteric tubes coursing inferiorly. Anasarca with soft tissue stranding throughout the subcutaneous and deep spaces of the neck as described above, right greater than left with edema extending into the right sternocleidomastoid muscle. Trace fluid in the retropharyngeal soft tissues there is nonspecific and may be reactive due to instrumentation. Heterogeneous lesion in the left thoracic inlet measuring 5.4 x 2.7 cm with occlusion of the left subclavian and axial artery, inc ompletely characterized on this examination due to poor soft tissue differentiation. Differential considerations include thrombus and hematoma given history, consider further evaluation with dedicated ultrasound if indicated. 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AREK PIS[facility] PINEDA : 2000 Sex: MFINAL REPORT Chest CT without contrast CLINICAL HISTORY: Facial plethora TECHNIQUE: Contiguous axial images of the chest without contrast. This exam was performed according to the departmental dose optimization program which includes automated exposure control, adjustment of the mAand/or kV according to the patient size, and/or use of an iterative reconstruction technique. COMPARISON: CT chest dated 02/24/2022 FINDINGS:Endotracheal tube terminates the level of the T2 vertebral body. Enteric tube is seen coursing inferiorly, tip terminating below the inferior margin of film. Moderate to large bilateral pleural effusions with consolidative airspace opacities, worst in the interval. Rounded nodular consolidative airspace opacities and peribronchial vascular distribution particularly in the left upper and lower lobe, new in the interval. Intralobular septal thickening. No pneumothorax. Thyroid gland is unremarkable. The esophagus is normal in caliber however not well seen on thisexamination. Diffuse soft tissue stranding throughout the mediastinum limits evaluation for mediastinal adenopathy. The heart is globally enlarged. Small pericardial effusion. Great vessels are normal in caliber.Anasarca. No axillary adenopathy. Venous catheter in the right axilla. No aggressive osseous lesions or acute fractures. Again seen are wedge-shaped hypodensities. The visualized intra-abdominal ascites. IMPRESSION: Interval increase in size of the moderate to large bilateral pleural effusions. Interstitial pulmonary edema. New nodular consolidative airspace opacities in the bilateral lungs, worse in the left upper lobe, indeterminate however possibly infectious/inflammatory in etiology. Global cardiomegaly. Anasarca. Signed: Aparna Trinidad MDReport Verified Date/Time: 03/02/2022 05:42:18 [id number] 05:01:44 Test Item Value Reference Range Interpretation Comments PHOSPHORUS (BEAKER) (test code = 3.6 mg/dL 2.3-4.7 604) Fluid Power Mechanic ID - ADMINHEPATIC FUNCTION [id number] 05:01:44 Test Item Value Reference Range Interpretation Comments TOTAL PROTEIN (BEAKER) (test code = 6.2 gm/dL 6.0-8.3 770) ALBUMIN (BEAKER) (test code = 1145) 2.6 g/dL 3.5-5.0 L BILIRUBIN TOTAL (BEAKER) (test code 1.4 mg/dL 0.2-1.2 H = 377) BILIRUBIN DIRECT (BEAKER) (test 0.7 mg/dL 0.1-0.5 H code = 706) ALKALINE PHOSPHATASE (BEAKER) (test 124 U/L 40-150 code = 346) AST (SGOT) (BEAKER) (test code = 47 U/L 5-34 H 353) ALT (SGPT) (BEAKER) (test code = 335 U/L 6-55 H 347) Fluid Power Mechanic ID - ADMINBASIC METABOLIC [id number] 05:01:43 Test Item Value Reference Range Interpretation Comments SODIUM (BEAKER) 135 meq/L 136-145 L (test code = 381) POTASSIUM (BEAKER) 4.4 meq/L 3.5-5.1 (test code = 379) CHLORIDE (BEAKER) 105 meq/L 98-107 (test code = 382) CO2 (BEAKER) (test 20 meq/L 22-29 L code = 355) BLOOD UREA NITROGEN 13 mg/dL 7-21 (BEAKER) (test code = 354) CREATININE (BEAKER) 0.64 mg/dL 0.57-1.25 (test code = 358) GLUCOSE RANDOM 150 mg/dL 70-105 H (BEAKER) (test code = 652) CALCIUM (BEAKER) 8.7 mg/dL 8.4-10.2 (test code = 697) EGFR (BEAKER) (test 155 mL/min/1.73 ESTIM ATED GFR IS code = 1092) sq m NOT ACCURATE CREATININE CLEARANCE IN PREDICTING GLOMERULAR FILTRATION RATE . ESTIMATED GFR I S NOT APPLICABLE FOR DIALYSIS PATIEN TS. Fluid Power Mechanic ID - [id number] 05:01:43 Test Item Value Reference Range Interpretation Comments MAGNESIUM (BEAKER) (test code = 1.7 mg/dL 1.6-2.6 627) Fluid Power Mechanic ID - ADMINBLOOD GAS, [id number] 04:56:25 Test Item Value Reference Range Interpretation Comments PH ARTERIAL (BEAKER) (test code = 7.45 7.35-7.45 383) PCO2 ARTERIAL (BEAKER) (test code 32 mm Hg 35-45 L = 384) PO2 ARTERIAL (BEAKER) (test code 157 mm Hg 80-90 H = 385) O2 SATURATION ARTERIAL (BEAKER) 99.1 % 96.0-97.0 H (test code = 386) HCO3 ARTERIAL (BEAKER) (test code 21 mmol/L 21-29 = 388) BASE EXCESS ARTERIAL (BEAKER) -2.2 mmol/L -2.0-3.0 L (test code = 387) PATIENT TEMPERATURE (BEAKER) 36.7 (test code = 1818) FIO2 (BEAKER) (test code = 1819) 50.0 CALCIUM, [id number] 04:55:40 Test Item Value Reference Range Interpretation Comments CALCIUM IONIZED (BEAKER) (test 1.14 mmol/L 1.12-1.27 code = 698) PH, BLOOD (BEAKER) (test code = 7.44 1810) SARS-COV2/RT-PCR ([facility])2022-03-02 02:40:25 Test Item Value Reference Range Interpretation Comments SARS-COV2/RT-PCR (test code = Negative Negative [id number]) Negative result for this test determines that SARS-CoV-2 RNA was not present in the specimen above the Limit of Detection (LOD). However, Negative results do not preclude SARS-CoV-2 infection and should not be used as the sole basis for treatment or patient management decisions. Negative results must be combined with clinical observations, patient history, and epidemiological information. A false negative result may occur if a specimen is improperly collected, transported, or handled. A false negative result should be considered if patient's recent exposures or clinical presentation indicate that COVID-19 (SARS-CoV-2) is likely and diagnostic tests for other causes of illness are negative. Re-testing should be considered in cases of suspected false negatives.The limit of detection for this assay is 100 copies/mL.This SARS-CoV-2 test is a real-time RT_PCR test intended for the qualitative detection of nucleic acid from SARS-CoV-2 in a nasopharyngeal swab specimen collected from individuals suspected of COVID-19 by their healthcare provider.This test has not been Food and Drug Administration (FDA) cleared or approved. This is a modified version of an approved Emergency Use Authorization (EUA) and is in the process of review by the FDA. Once authorized by the FDA, the issued EUA will be effective until the declaration that circumstances exist justifying the authorization of the emergency use of in vitro diagnostic tests for detection and/or diagnosis of COVID-19 is terminated under Section 564(b)(2) of the Act or the EUA is revoked under Section 564(g) of the Act.Testing was performed using [employer] SARS-CoV-2 assay.Fact Sheet for Healthcare Providers:https://www.Burt.valdes/amanda/RT SARS-CoV-2 HCP Fact Sheet 51- 338450.pdfFact Sheet for Healthcare Patients:https://www.Burt.SHADOW/amanda/RT SARS-CoV-2 Patient Fact Sheet EN 51-310437C0.pdfBLOOD GAS, [id number] 01:37:14 Test Item Value Reference Range Interpretation Comments PH ARTERIAL (BEAKER) (test code = 7.50 7.35-7.45 H 383) PCO2 ARTERIAL (BEAKER) (test code 28 mm Hg 35-45 L = 384) PO2 ARTERIAL (BEAKER) (test code 323 mm Hg 80-90 H = 385) O2 SATURATION ARTERIAL (BEAKER) 99.8 % 96.0-97.0 H (test code = 386) HCO3 ARTERIAL (BEAKER) (test code 21 mmol/L 21-29 = 388) BASE EXCESS ARTERIAL (BEAKER) -1.6 mmol/L -2.0-3.0 (test code = 387) PATIENT TEMPERATURE (BEAKER) 36.8 (test code = 1818) FIO2 (BEAKER) (test code = 1819) 100.0 RAD, ABDOMEN/KUB, 1 VIEW [id number] 01:10:00Reason for exam:->[facility] MAREK PISANOLOULaxmi : 2000 Sex: MFINAL REPORT CLINICAL HISTORY: corpak placement TECHNIQUE: RAD, ABDOMEN/KUB, 1 VIEW AP COMPARISON: None IMPRESSION: Weighted tip feeding tube seen looping in the gastric fundus withtip overlying the gastric antrum. There is gaseous distention of the stomach. Otherwise nonspecific bowel gas pattern with no distended loops of bowel to suggest obstruction. Osseous structures are unremarkable. Consolidative airspace opacities in the bilateral lower lungs with small right pleural effusion. Signed: Aparna Trinidad Verified Date/Time: 03/02/2022 01:10:30 RAD, CHEST, 1 VIEW, NON [id number] 23:42:00Reason for exam:->s/p intubation, placement of ettShould this be performed at the bedside?->[facility] : 2000 Sex: MFINAL REPORT RAD, CHEST, 1 VIEW, NON DEPT INDICATION: s/p intubation, placement of ett COMPARISON: Prior day's exam FINDINGS: Portable frontal view of the chest. IMPRESSION: SupportLines: Endotracheal tube terminates 6.4 cm above the sarah. Lungs and pleura: Unchanged airspace and pleural opacities. No pneumothorax.Heart and mediastinum: Stable contours. Additional findings: None. Signed: Aparna Trinidad Verified Date/Time: 03/01/2022 23:42:09 Electronically signedby: APARNA TRINIDAD MD on 03/01/2022 11:42 PMRAD, CHEST, 1 VIEW, NON [id number] 22:35:00Reason for exam:->shortness of breathShould this be performed at the bedside?->Yes [facility]K PISANO : 2000 Sex: MFINAL REPORT EXAM: Chest one view COMPARISON: February 24, 2022 CLINICAL HISTORY: Shortness of breath Findings: There is interval worsening bilateral diffuse airway opacities which may represent edema. Superimposed pneumonitis cannot be excluded. The cardiac size remains enlarged. There is mild right pleural effusion. There is no evidence of pneumothorax. The regional osseous structures are unremarkable. Signed: Giovana Weiner MDReport Verified Date/Time: 03/01/2022 22:35:41 [id number] 21:34:58 Test Item Value Reference Range Interpretation Comments THYROID STIMULATING HORMONE 6.819 uIU/mL 0.350-4.940 H (BEAKER) (test code = 772) Fluid Power Mechanic ID - [id number] 20:53:29 Test Item Value Reference Range Interpretation Comments PARTIAL THROMBOPLASTIN TIME 50.2 seconds 22.5-36.0 H (BEAKER) (test code = 760) [id number] 14:54:49 Test Item Value Reference Range Interpretation Comments PARTIAL THROMBOPLASTIN TIME 33.8 seconds 22.5-36.0 (BEAKER) (test code = 760) [id number] 07:51:25 Test Item Value Reference Range Interpretation Comments PARTIAL THROMBOPLASTIN TIME 48.1 seconds 22.5-36.0 H (BEAKER) (test code = 760) [id number] 06:13:36 Test Item Value Reference Range Interpretation Comments PHOSPHORUS (BEAKER) (test code = 3.0 mg/dL 2.3-4.7 604) Fluid Power Mechanic ID - PIAYA LHEPATIC FUNCTION [id number] 06:13:36 Test Item Value Reference Range Interpretation Comments TOTAL PROTEIN (BEAKER) (test code = 5.9 gm/dL 6.0-8.3 L 770) ALBUMIN (BEAKER) (test code = 1145) 2.5 g/dL 3.5-5.0 L BILIRUBIN TOTAL (BEAKER) (test code 1.3 mg/dL 0.2-1.2 H = 377) BILIRUBIN DIRECT (BEAKER) (test 0.7 mg/dL 0.1-0.5 H code = 706) ALKALINE PHOSPHATASE (BEAKER) (test 124 U/L 40-150 code = 346) AST (SGOT) (BEAKER) (test code = 81 U/L 5-34 H 353) ALT (SGPT) (BEAKER) (test code = 402 U/L 6-55 H 347) Fluid Power Mechanic ID - PIAYA LBASIC METABOLIC [id number] 06:13:35 Test Item Value Reference Range Interpretation Comments SODIUM (BEAKER) 134 meq/L 136-145 L (test code = 381) POTASSIUM (BEAKER) 4.0 meq/L 3.5-5.1 (test code = 379) CHLORIDE (BEAKER) 105 meq/L 98-107 (test code = 382) CO2 (BEAKER) (test 22 meq/L 22-29 code = 355) BLOOD UREA NITROGEN 12 mg/dL 7-21 (BEAKER) (test code = 354) CREATININE (BEAKER) 0.56 mg/dL 0.57-1.25 L (test code = 358) GLUCOSE RANDOM 97 mg/dL 70-105 (BEAKER) (test code = 652) CALCIUM (BEAKER) 8.5 mg/dL 8.4-10.2 (test code = 697) EGFR (BEAKER) (test 181 mL/min/1.73 ESTIM ATED GFR IS code = 1092) sq m NOT ACCURATE CREATININE CLEARANCE IN PREDICTING GLOMERULAR FILTRATION RATE . ESTIMATED GFR I S NOT APPLICABLE FOR DIALYSIS PATIEN TS. Fluid Power Mechanic ID - PIRIMMA [id number] 06:13:35 Test Item Value Reference Range Interpretation Comments MAGNESIUM (BEAKER) (test code = 1.7 mg/dL 1.6-2.6 627) Fluid Power Mechanic ID - ADRIENNE [id number] 05:33:09 Test Item Value Reference Range Interpretation Comments PARTIAL THROMBOPLASTIN TIME 130.5 seconds 22.5-36.0 H (BEAKER) (test code = 760) PROTHROMBIN TIME/[id number] 05:28:13 Test Item Value Reference Range Interpretation Comments PROTIME (BEAKER) 16.9 seconds 11.9-14.2 H (test code = 759) INR (BEAKER) (test 1.40 See_Comment [Automat ed message] code = 370) The system Polat[employer] generated this result transmitted ref erence range: <=5.90. The reference range was not used to int erpret this result as normal/abnormal . RECOMMENDED COUMADIN/WARFARIN INR THERAPY RANGESSTANDARD DOSE: 2.0 - 3.0 Includes: PROPHYLAXIS for venous thrombosis, systemic embolization; TREATMENT for venous thrombosis and/or pulmonary embolus.HIGH RISK: Target INR is 2.5-3.5 for patients with mechanical heart valves.(CELLAVISION MANUAL DIFF)2022-03-01 05:26:11 Test Item Value Reference Range Interpretation Comments TOTAL COUNTED (BEAKER) (test code = 1351) RBC MORPHOLOGY (BEAKER) (test code = Normal 762) WBC MORPHOLOGY (BEAKER) (test code = Normal 487) PLT MORPHOLOGY (BEAKER) (test code = Normal 486) CBC W/PLT COUNT & AUTO [id number] 05:26:10 Test Item Value Reference Range Interpretation Comments WHITE BLOOD CELL COUNT (BEAKER) 14.0 K/ L 3.5-10.5 H (test code = 775) RED BLOOD CELL COUNT (BEAKER) 3.68 M/ L 4.63-6.08 L (test code = 761) HEMOGLOBIN (BEAKER) (test code = 9.3 GM/DL 13.7-17.5 L 410) HEMATOCRIT (BEAKER) (test code = 31.7 % 40.1-51.0 L 411) MEAN CORPUSCULAR VOLUME (BEAKER) 86.1 fL 79.0-92.2 (test code = 753) MEAN CORPUSCULAR HEMOGLOBIN 25.3 pg 25.7-32.2 L (BEAKER) (test code = 751) MEAN CORPUSCULAR HEMOGLOBIN CONC 29.3 GM/DL 32.3-36.5 L (BEAKER) (test code = 752) RED CELL DISTRIBUTION WIDTH 23.3 % 11.6-14.4 H (BEAKER) (test code = 412) PLATELET COUNT (BEAKER) (test 224 K/CU MM 150-450 code = 756) MEAN PLATELET VOLUME (BEAKER) 9.8 fL 9.4-12.4 (test code = 754) NUCLEATED RED BLOOD CELLS 0 /100 WBC 0-0 (BEAKER) (test code = 413) [id number] 22:02:11 Test Item Value Reference Range Interpretation Comments PARTIAL THROMBOPLASTIN TIME 54.2 seconds 22.5-36.0 H (BEAKER) (test code = 760) [id number] 12:33:47 Test Item Value Reference Range Interpretation Comments PARTIAL THROMBOPLASTIN TIME 52.1 seconds 22.5-36.0 H (BEAKER) (test code = 760) HEPATIC FUNCTION [id number] 08:25:00 Test Item Value Reference Range Interpretation Comments TOTAL PROTEIN (BEAKER) (test code = 5.8 gm/dL 6.0-8.3 L 770) ALBUMIN (BEAKER) (test code = 1145) 2.5 g/dL 3.5-5.0 L BILIRUBIN TOTAL (BEAKER) (test code 1.2 mg/dL 0.2-1.2 = 377) BILIRUBIN DIRECT (BEAKER) (test 0.7 mg/dL 0.1-0.5 H code = 706) ALKALINE PHOSPHATASE (BEAKER) (test 149 U/L 40-150 code = 346) AST (SGOT) (BEAKER) (test code = 75 U/L 5-34 H 353) ALT (SGPT) (BEAKER) (test code = 530 U/L 6-55 H 347) Fluid Power Mechanic MELONIE - ELIZARIMMA Hansonaugusto ID - [id number] 07:39:09 Test Item Value Reference Range Interpretation Comments MAGNESIUM (BEAKER) (test code = 1.7 mg/dL 1.6-2.6 627) Fluid Power Mechanic ID - PIAYA [id number] 07:39:09 Test Item Value Reference Range Interpretation Comments PHOSPHORUS (BEAKER) (test code = 2.7 mg/dL 2.3-4.7 604) Fluid Power Mechanic ID - PIAYA LBASIC METABOLIC [id number] 07:39:08 Test Item Value Reference Range Interpretation Comments SODIUM (BEAKER) 135 meq/L 136-145 L (test code = 381) POTASSIUM (BEAKER) 4.0 meq/L 3.5-5.1 (test code = 379) CHLORIDE (BEAKER) 105 meq/L 98-107 (test code = 382) CO2 (BEAKER) (test 22 meq/L 22-29 code = 355) BLOOD UREA NITROGEN 13 mg/dL 7-21 (BEAKER) (test code = 354) CREATININE (BEAKER) 0.64 mg/dL 0.57-1.25 (test code = 358) GLUCOSE RANDOM 107 mg/dL 70-105 H (BEAKER) (test code = 652) CALCIUM (BEAKER) 8.2 mg/dL 8.4-10.2 L (test code = 697) EGFR (BEAKER) (test 155 mL/min/1.73 ESTIM ATED GFR IS code = 1092) sq m NOT ACCURATE CREATININE CLEARANCE IN PREDICTING GLOMERULAR FILTRATION RATE . ESTIMATED GFR I S NOT APPLICABLE FOR DIALYSIS PATIEN TS. Fluid Power Mechanic ID - PIAYA L(CELLAVISION MANUAL DIFF)2022-02-28 06:30:21 Test Item Value Reference Range Interpretation Comments TOTAL COUNTED (BEAKER) (test code = 1351) RBC MORPHOLOGY (BEAKER) (test code = Normal 762) WBC MORPHOLOGY (BEAKER) (test code = Normal 487) PLT MORPHOLOGY (BEAKER) (test code = Normal 486) CBC W/PLT COUNT & AUTO [id number] 06:30:20 Test Item Value Reference Range Interpretation Comments WHITE BLOOD CELL COUNT (BEAKER) 17.1 K/ L 3.5-10.5 H (test code = 775) RED BLOOD CELL COUNT (BEAKER) 3.79 M/ L 4.63-6.08 L (test code = 761) HEMOGLOBIN (BEAKER) (test code = 9.4 GM/DL 13.7-17.5 L 410) HEMATOCRIT (BEAKER) (test code = 32.8 % 40.1-51.0 L 411) MEAN CORPUSCULAR VOLUME (BEAKER) 86.5 fL 79.0-92.2 (test code = 753) MEAN CORPUSCULAR HEMOGLOBIN 24.8 pg 25.7-32.2 L (BEAKER) (test code = 751) MEAN CORPUSCULAR HEMOGLOBIN CONC 28.7 GM/DL 32.3-36.5 L (BEAKER) (test code = 752) RED CELL DISTRIBUTION WIDTH 23.3 % 11.6-14.4 H (BEAKER) (test code = 412) PLATELET COUNT (BEAKER) (test 237 K/CU MM 150-450 code = 756) MEAN PLATELET VOLUME (BEAKER) 9.9 fL 9.4-12.4 (test code = 754) NUCLEATED RED BLOOD CELLS 0 /100 WBC 0-0 (BEAKER) (test code = 413) [id number] 06:23:40 Test Item Value Reference Range Interpretation Comments PARTIAL THROMBOPLASTIN TIME 59.0 seconds 22.5-36.0 H (BEAKER) (test code = 760) PROTHROMBIN TIME/[id number] 06:22:31 Test Item Value Reference Range Interpretation Comments PROTIME (BEAKER) 17.5 seconds 11.9-14.2 H (test code = 759) INR (BEAKER) (test 1.46 See_Comment [Automat ed message] code = 370) The system Polat[employer] generated this result transmitted ref erence range: <=5.90. The reference range was not used to int erpret this result as normal/abnormal . RECOMMENDED COUMADIN/WARFARIN INR THERAPY RANGESSTANDARD DOSE: 2.0 - 3.0 Includes: PROPHYLAXIS for venous thrombosis, systemic embolization; TREATMENT for venous thrombosis and/or pulmonary embolus.HIGH RISK: Target INR is 2.5-3.5 for patients with mechanical heart valves.[id number] 22:13:02 Test Item Value Reference Range Interpretation Comments PARTIAL THROMBOPLASTIN TIME 52.0 seconds 22.5-36.0 H (BEAKER) (test code = 760) [id number] 14:56:13 Test Item Value Reference Range Interpretation Comments PARTIAL THROMBOPLASTIN TIME 39.7 seconds 22.5-36.0 H (BEAKER) (test code = 760) VANCOMYCIN LEVEL, [id number] 09:49:28 Test Item Value Reference Range Interpretation Comments VANCOMYCIN TROUGH (BEAKER) (test 10.1 ug/mL 10.0-20.0 code = 522) Fluid Power Mechanic ID - DBBASIC METABOLIC [id number] 08:09:35 Test Item Value Reference Range Interpretation Comments SODIUM (BEAKER) 131 meq/L 136-145 L (test code = 381) POTASSIUM (BEAKER) 4.9 meq/L 3.5-5.1 Specimen slightly (test code = 379) hemolyzed CHLORIDE (BEAKER) 102 meq/L 98-107 (test code = 382) CO2 (BEAKER) (test 21 meq/L 22-29 L code = 355) BLOOD UREA NITROGEN 14 mg/dL 7-21 (BEAKER) (test code = 354) CREATININE (BEAKER) 0.67 mg/dL 0.57-1.25 Specimen slightly (test code = 358) hemolyzed GLUCOSE RANDOM 98 mg/dL 70-105 (BEAKER) (test code = 652) CALCIUM (BEAKER) 8.4 mg/dL 8.4-10.2 (test code = 697) EGFR (BEAKER) (test 147 mL/min/1.73 ESTIM ATED GFR IS code = 1092) sq m NOT ACCURATE CREATININE CLEARANCE IN PREDICTING GLOMERULAR FILTRATION RATE . ESTIMATED GFR I S NOT APPLICABLE FOR DIALYSIS PATIEN TS. Fluid Power Mechanic ID - DBHEPATIC FUNCTION [id number] 08:09:35 Test Item Value Reference Range Interpretation Comments TOTAL PROTEIN (BEAKER) 5.8 gm/dL 6.0-8.3 L Speci men slightly (test code = 770) hemolyzed ALBUMIN (BEAKER) (test 2.5 g/dL 3.5-5.0 L Speci men slightly code = 1145) hemolyzed BILIRUBIN TOTAL 1.4 mg/dL 0.2-1.2 H Specimen sli ghtly (BEAKER) (test code = hemoly zed 377) BILIRUBIN DIRECT 0.8 mg/dL 0.1-0.5 H Specimen sl ightly (BEAKER) (test code = hemoly zed 706) ALKALINE PHOSPHATASE 148 U/L 40-150 (BEAKER) (test code = 346) AST (SGOT) (BEAKER) 112 U/L 5-34 H Specimen slightly (test code = 353) hemolyzed ALT (SGPT) (BEAKER) 645 U/L 6-55 H Specimen slightly (test code = 347) hemolyzed Fluid Power Mechanic ID - [id number] 08:09:34 Test Item Value Reference Range Interpretation Comments PHOSPHORUS (BEAKER) 2.7 mg/dL 2.3-4.7 Specimen slightly (test code = 604) hemolyzed Fluid Power Mechanic ID - [id number] 08:09:33 Test Item Value Reference Range Interpretation Comments MAGNESIUM (BEAKER) 1.7 mg/dL 1.6-2.6 Specimen slightly (test code = 627) hemolyzed Fluid Power Mechanic ID - DBHSV 1/2 PCR, [id number] 08:06:31 Test Item Value Reference Range Interpretation Comments HSV, PCR (test code = NEGATIVE NEGATIVE 14184-8) TOR (test code = TOR) Herpes Simplex Virus (HSV) not detected.see scanned result TEST PERFORMED BY [facility] Interpretation (test Normal code = 99208-3) [facility] [id number] 08:06:31 Test Item Value Reference Range Interpretation Comments HSV, PCR (test code = NEGATIVE NEGATIVE 63525-8) TOR (test code = TOR) Herpes Simplex Virus (HSV) not detected.see scanned result TEST PERFORMED BY [facility] Interpretation (test Normal code = 43987-7) [facility](CELLAVISION MANUAL DIFF)2022-02-27 07:25:28 Test Item Value Reference Range Interpretation Comments NEUTROPHILS - REL 84 % (CELLAVISION)(BEAKER) (test code = 2816) LYMPHOCYTES - REL 1 % (CELLAVISION)(BEAKER) (test code = 2817) MONOCYTES - REL 2 % (CELLAVISION)(BEAKER) (test code = 2818) BASOPHILS - REL 1 % (CELLAVISION)(BEAKER) (test code = 2820) METAMYELOCYTES - REL 2 % 0-0 H (CELLAVISION)(BEAKER) (test code = 2821) MYELOCYTES - REL 6 % 0-0 H (CELLAVISION)(BEAKER) (test code = 2822) PROMYELOCYTES - REL 2 % 0-0 H (CELLAVSION)(BEAKER) (test code = 2825) BANDS - REL (CELLAVISION)(BEAKER) 2 % 0-10 (test code = 2826) NEUTROPHILS - ABS 15.79 K/ul 1.78-5.38 H (CELLAVISION)(BEAKER) (test code = 2830) LYMPHOCYTES - ABS 0.19 K/ul 1.32-3.57 L (CELLAVISION)(BEAKER) (test code = 2831) MONOCYTES - ABS 0.38 K/uL 0.30-0.82 (CELLAVISION)(BEAKER) (test code = 2832) BASOPHILS - ABS 0.19 K/uL 0.01-0.08 H (CELLAVISION)(BEAKER) (test code = 2835) METAMYELOCYTES - ABS 0.38 K/uL 0.00-0.00 H (CELLAVISION)(BEAKER) (test code = 2836) MYELOCYTES-ABS 1.13 K/uL 0.00-0.00 H (CELLAVISION)(BEAKER) (test code = 2837) PROMYELOCYTES - ABS 0.38 K/uL 0.00-0.00 H (CELLAVISION)(BEAKER) (test code = 2838) BANDS - ABS (CELLAVISION)(BEAKER) 0.38 K/uL 0.00-0.80 (test code = 2840) TOTAL COUNTED (BEAKER) (test code 100 = 1351) MANUAL NRBC PER 100 CELLS 1 /100 WBC 0-0 H (BEAKER) (test code = 1353) WBC MORPHOLOGY (BEAKER) (test Normal code = 487) PLT MORPHOLOGY (BEAKER) (test Normal code = 486) POLYCHROMATOPHILLIC RBCS(BEAKER) 3+ many (test code = 478) ANISOCYTOSIS (BEAKER) (test code 2+ moderate = 961) MACROCYTES (BEAKER) (test code = 1+ few 964) POIKILOCYTES (BEAKER) (test code 2+ moderate = 966) SPHEROCYTES (BEAKER) (test code = 1+ few 768) ELLIPTOCYTES (BEAKER) (test code 1+ few = 962) ARTIFACT (CELLAVISION)(BEAKER) Present (test code = 3432) PLATELET CONCENTRATION Adequate (CELLAVISION)(BEAKER) (test code = 3438) Fluid Power Mechanic ID - duane Recinos comments: Slide comments:CBC W/PLT COUNT & AUTO [id number] 07:25:26 Test Item Value Reference Range Interpretation Comments WHITE BLOOD CELL COUNT (BEAKER) 18.8 K/ L 3.5-10.5 H (test code = 775) RED BLOOD CELL COUNT (BEAKER) 3.83 M/ L 4.63-6.08 L (test code = 761) HEMOGLOBIN (BEAKER) (test code = 9.6 GM/DL 13.7-17.5 L 410) HEMATOCRIT (BEAKER) (test code = 33.2 % 40.1-51.0 L 411) MEAN CORPUSCULAR VOLUME (BEAKER) 86.7 fL 79.0-92.2 (test code = 753) MEAN CORPUSCULAR HEMOGLOBIN 25.1 pg 25.7-32.2 L (BEAKER) (test code = 751) MEAN CORPUSCULAR HEMOGLOBIN CONC 28.9 GM/DL 32.3-36.5 L (BEAKER) (test code = 752) RED CELL DISTRIBUTION WIDTH 22.8 % 11.6-14.4 H (BEAKER) (test code = 412) PLATELET COUNT (BEAKER) (test 260 K/CU MM 150-450 code = 756) MEAN PLATELET VOLUME (BEAKER) 10.5 fL 9.4-12.4 (test code = 754) NUCLEATED RED BLOOD CELLS 0 /100 WBC 0-0 (BEAKER) (test code = 413) [id number] 06:37:40 Test Item Value Reference Range Interpretation Comments PARTIAL THROMBOPLASTIN TIME 33.2 seconds 22.5-36.0 (BEAKER) (test code = 760) PROTHROMBIN TIME/[id number] 06:37:00 Test Item Value Reference Range Interpretation Comments PROTIME (BEAKER) 18.6 seconds 11.9-14.2 H (test code = 759) INR (BEAKER) (test 1.58 See_Comment [Automat ed message] code = 370) The system [employer] generated this result transmitted ref erence range: <=5.90. The reference range was not used to int erpret this result as normal/abnormal . RECOMMENDED COUMADIN/WARFARIN INR THERAPY RANGESSTANDARD DOSE: 2.0 - 3.0 Includes: PROPHYLAXIS for venous thrombosis, systemic embolization; TREATMENT for venous thrombosis and/or pulmonary embolus.HIGH RISK: Target INR is 2.5-3.5 for patients with mechanical heart valves.BLOOD [id number] 04:00:57 Test Item Value Reference Range Interpretation Comments CULTURE (BEAKER) (test No growth in 5 days code = 1095) BLOOD [id number] 04:00:56 Test Item Value Reference Range Interpretation Comments CULTURE (BEAKER) (test No growth in 5 days code = 1095) The specimen volume collected for this blood culture was below the optimum (10 mL per bottle or 20 mL total). 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 TECHNIQUE: Helical CTA of the abdominal aorta and bilateral lower extremities was performed prior to and following the uneventful administration ofintravenous contrast utilizing multiple windows, sagittal and coronal reformations. Multiplanar 2-D r eformations of the lower extremity vasculature were also performed on independent workstation and saved to PACS. This exam was performed according to our departmental dose optimization program which includes automated exposure control, adjustment of the mA and/or KV according to the patient's size and/or use of iterative reconstruction technique. FINDINGS: No prior CTs are available for comparison. The abdominal aorta is normal caliber and patent without significant atherosclerotic disease or intraluminal filling defects. Mesenteric arteries including the celiac axis, SMA and HANNAH are patent. Three patent left renal arteries are identified originating from the abdominal aorta. A single patent rightrenal artery is present. No focal stenosis or significant atherosclerotic disease. Right lower extremity runoff demonstrates patent right common, internal and external iliac arteries without focal stenosis or evidence for significant inflow disease. The common femoral and superficial femoral artery are patent without focal stenosis. The profunda femoral artery is occluded near its origin and multiplecollateral vessels are identified. The right popliteal artery is patent without focal stenosis or filling defects. The trifurcation is patent. The peroneal artery is occluded just distal to its origin.The posterior tibial artery is occluded at the level of the distal tibia and shows reconstitution offlow through collaterals at the level of the ankle joint. The anterior tibial artery is patent to the level of the foot. Left lower extremity runoff demonstrates patent common, internal and external iliac arteries without focal stenosis, significant plaque or evidence for inflow disease. The common femoral, deep femoral, superficial femoral and proximal popliteal arteries are patent without focal stenosis, filling defects or atherosclerotic disease. The distal left popliteal artery is occluded at the level of the knee joint and there are multiple collaterals providing reconstituted flow to the trifurcation. The peroneal artery is occluded near its origin. The anterior tibial artery is occluded at the level of the mid tibia. The posterior tibial artery is patent to the level of the right foot and p rovides the only significant flow to the foot. Moderate diffuse bilateral soft tissue swelling and edema is present bilaterally. Nonvascular findings show multiple low-density lesions in the spleen, possibly splenic infarcts. Solid abdominal organs including the liver, pancreas, kidneys and adrenal glands are otherwise unremarkable. Stomach, visible portions of the small bowel and colon are normal. No evidence for obstruction or free air to suggest perforation. Gallbladder is normal size and appearance. No evidence for acute biliary pathology. A mild to moderate amount of low-density ascites is seen throughout the peritoneum. Pelvic organs including the rectum, prostate gland, urinary bladder and visible portions of the bowel are unremarkable. Bones are unremarkable. IMPRESSION: 1. Occluded left distal popliteal artery with reconstitution of flow at the level of the trifurcation. A single vesselrunoff is seen to the left foot provided by the posterior tibial artery. 2. Occluded right profunda femoral artery with a single vessel runoff to the right foot provided by the anterior tibial artery. The posterior tibial artery is occluded distally but reconstitutes at the level of the ankle. 3. No significant inflow disease or atherosclerotic plaque. 4. Multiple left renal arteries originating fromthe aorta, a normal variant an incidental finding. 5. Multiple low-density lesions in the spleen, likely infarcts. 6. Moderate ascites. Signed: Jaye Edwards Verified Date/Time: 02/26/2022 12:35:07 Reading Location: [address] Reading Room [id number] 11:24:49 Test Item Value Reference Range Interpretation Comments PARTIAL THROMBOPLASTIN TIME 30.8 seconds 22.5-36.0 (BEAKER) (test code = 760) (CELLAVISION MANUAL DIFF)2022-02-26 08:19:37 Test Item Value Reference Range Interpretation Comments NEUTROPHILS - REL 65 % (CELLAVISION)(BEAKER) (test code = 2816) LYMPHOCYTES - REL 10 % (CELLAVISION)(BEAKER) (test code = 2817) MONOCYTES - REL 9 % (CELLAVISION)(BEAKER) (test code = 2818) BASOPHILS - REL 2 % (CELLAVISION)(BEAKER) (test code = 2820) METAMYELOCYTES - REL 3 % 0-0 H (CELLAVISION)(BEAKER) (test code = 2821) MYELOCYTES - REL 9 % 0-0 H (CELLAVISION)(BEAKER) (test code = 2822) PROMYELOCYTES - REL 1 % 0-0 H (CELLAVSION)(BEAKER) (test code = 2825) BANDS - REL (CELLAVISION)(BEAKER) 1 % 0-10 (test code = 2826) NEUTROPHILS - ABS 13.26 K/ul 1.78-5.38 H (CELLAVISION)(BEAKER) (test code = 2830) LYMPHOCYTES - ABS 2.04 K/ul 1.32-3.57 (CELLAVISION)(BEAKER) (test code = 2831) MONOCYTES - ABS 1.84 K/uL 0.30-0.82 H (CELLAVISION)(BEAKER) (test code = 2832) BASOPHILS - ABS 0.41 K/uL 0.01-0.08 H (CELLAVISION)(BEAKER) (test code = 2835) METAMYELOCYTES - ABS 0.61 K/uL 0.00-0.00 H (CELLAVISION)(BEAKER) (test code = 2836) MYELOCYTES-ABS 1.84 K/uL 0.00-0.00 H (CELLAVISION)(BEAKER) (test code = 2837) PROMYELOCYTES - ABS 0.20 K/uL 0.00-0.00 H (CELLAVISION)(BEAKER) (test code = 2838) BANDS - ABS (CELLAVISION)(BEAKER) 0.20 K/uL 0.00-0.80 (test code = 2840) TOTAL COUNTED (BEAKER) (test code 100 = 1351) WBC MORPHOLOGY (BEAKER) (test Normal code = 487) GIANT PLATELETS (BEAKER) (test Present code = 313) POLYCHROMATOPHILLIC RBCS(BEAKER) 2+ moderate (test code = 478) ANISOCYTOSIS (BEAKER) (test code 2+ moderate = 961) MACROCYTES (BEAKER) (test code = 1+ few 964) POIKILOCYTES (BEAKER) (test code 3+ many = 966) SPHEROCYTES (BEAKER) (test code = 1+ few 768) ELLIPTOCYTES (BEAKER) (test code 1+ few = 962) VIJAY CELLS (BEAKER) (test code = 1+ few 474) ARTIFACT (CELLAVISION)(BEAKER) Present (test code = 3432) PLATELET CONCENTRATION Adequate (CELLAVISION)(BEAKER) (test code = 3438) Fluid Power Mechanic ID - duane Recinos comments: Slide comments:CBC W/PLT COUNT & AUTO [id number] 08:19:36 Test Item Value Reference Range Interpretation Comments WHITE BLOOD CELL COUNT (BEAKER) 20.4 K/ L 3.5-10.5 H (test code = 775) RED BLOOD CELL COUNT (BEAKER) 3.86 M/ L 4.63-6.08 L (test code = 761) HEMOGLOBIN (BEAKER) (test code = 9.4 GM/DL 13.7-17.5 L 410) HEMATOCRIT (BEAKER) (test code = 32.9 % 40.1-51.0 L 411) MEAN CORPUSCULAR VOLUME (BEAKER) 85.2 fL 79.0-92.2 (test code = 753) MEAN CORPUSCULAR HEMOGLOBIN 24.4 pg 25.7-32.2 L (BEAKER) (test code = 751) MEAN CORPUSCULAR HEMOGLOBIN CONC 28.6 GM/DL 32.3-36.5 L (BEAKER) (test code = 752) RED CELL DISTRIBUTION WIDTH 22.3 % 11.6-14.4 H (BEAKER) (test code = 412) PLATELET COUNT (BEAKER) (test 249 K/CU MM 150-450 code = 756) MEAN PLATELET VOLUME (BEAKER) 9.6 fL 9.4-12.4 (test code = 754) NUCLEATED RED BLOOD CELLS 0 /100 WBC 0-0 (BEAKER) (test code = 413) HEPATIC FUNCTION [id number] 06:44:40 Test Item Value Reference Range Interpretation Comments TOTAL PROTEIN (BEAKER) (test code = 5.8 gm/dL 6.0-8.3 L 770) ALBUMIN (BEAKER) (test code = 1145) 2.6 g/dL 3.5-5.0 L BILIRUBIN TOTAL (BEAKER) (test code 1.8 mg/dL 0.2-1.2 H = 377) BILIRUBIN DIRECT (BEAKER) (test 1.1 mg/dL 0.1-0.5 H code = 706) ALKALINE PHOSPHATASE (BEAKER) (test 161 U/L 40-150 H code = 346) AST (SGOT) (BEAKER) (test code = 175 U/L 5-34 H 353) ALT (SGPT) (BEAKER) (test code = 858 U/L 6-55 H 347) Fluid Power Mechanic ID - [id number] 06:44:39 Test Item Value Reference Range Interpretation Comments MAGNESIUM (BEAKER) (test code = 1.9 mg/dL 1.6-2.6 627) Fluid Power Mechanic ID - [id number] 06:44:39 Test Item Value Reference Range Interpretation Comments PHOSPHORUS (BEAKER) (test code = 2.9 mg/dL 2.3-4.7 604) Fluid Power Mechanic ID - DBBASIC METABOLIC [id number] 06:44:38 Test Item Value Reference Range Interpretation Comments SODIUM (BEAKER) 131 meq/L 136-145 L (test code = 381) POTASSIUM (BEAKER) 4.5 meq/L 3.5-5.1 (test code = 379) CHLORIDE (BEAKER) 103 meq/L 98-107 (test code = 382) CO2 (BEAKER) (test 19 meq/L 22-29 L code = 355) BLOOD UREA NITROGEN 18 mg/dL 7-21 (BEAKER) (test code = 354) CREATININE (BEAKER) 0.68 mg/dL 0.57-1.25 (test code = 358) GLUCOSE RANDOM 89 mg/dL 70-105 (BEAKER) (test code = 652) CALCIUM (BEAKER) 8.2 mg/dL 8.4-10.2 L (test code = 697) EGFR (BEAKER) (test 145 mL/min/1.73 ESTIM ATED GFR IS code = 1092) sq m NOT ACCURATE CREATININE CLEARANCE IN PREDICTING GLOMERULAR FILTRATION RATE . ESTIMATED GFR I S NOT APPLICABLE FOR DIALYSIS PATIEN TS. Fluid Power Mechanic ID - [id number] 06:22:29 Test Item Value Reference Range Interpretation Comments FIBRINOGEN LEVEL (BEAKER) (test 248 mg/dl 225-434 code = 658) [id number] 06:22:29 Test Item Value Reference Range Interpretation Comments PARTIAL THROMBOPLASTIN TIME 31.5 seconds 22.5-36.0 (BEAKER) (test code = 760) PROTHROMBIN TIME/[id number] 06:21:50 Test Item Value Reference Range Interpretation Comments PROTIME (BEAKER) 19.2 seconds 11.9-14.2 H (test code = 759) INR (BEAKER) (test 1.64 See_Comment [Automat ed message] code = 370) The system [employer]at[employer] generated this result transmitted ref erence range: <=5.90. The reference range was not used to int erpret this result as normal/abnormal . RECOMMENDED COUMADIN/WARFARIN INR THERAPY RANGESSTANDARD DOSE: 2.0 - 3.0 Includes: PROPHYLAXIS for venous thrombosis, systemic embolization; TREATMENT for venous thrombosis and/or pulmonary embolus.HIGH RISK: Target INR is 2.5-3.5 for patients with mechanical heart valves.[id number] 00:16:41 Test Item Value Reference Range Interpretation Comments PARTIAL THROMBOPLASTIN TIME 30.9 seconds 22.5-36.0 (BEAKER) (test code = 760) PLATELET [id number] 00:13:42 Test Item Value Reference Range Interpretation Comments PLATELET COUNT (BEAKER) (test 236 K/CU MM 150-450 code = 756) Fluid Power Mechanic ID - [id number] [id number] 20:42:47Ejection [facility]SLE ECHO [facility] 20[facility] 20:42:47Ejection FractionSLE ECHO [facility] 16:11:34 Test Item Value Reference Range Interpretation Comments PARTIAL THROMBOPLASTIN TIME 29.5 seconds 22.5-36.0 (BEAKER) (test code = 760) CT, BRAIN, WITHOUT [id number] 15:02:00Unlisted Reason for Exam - Click Yes and Enter Reason Below->YesUnlisted Reason for Exam->has IE, r/o embolismMODESTO [facility] : 2000 Sex: MFINAL REPORT CT, BRAIN, WITHOUT CONTRAST CLINICAL INDICATION: Unlisted Reason for ExamAltered mental statushas IE, r/o embolism COMPARISON: None TECHNIQUE: Noncontrast axial CT imaging of the brain and skull. DOSE REDUCTION: Dose modulation, iterative reconstruction, and/or weight-based adjustment of the mA/kV was utilized to reduce the radiation dose to as low as reasonably achiev able. FINDINGS:No intracranial hemorrhage, midline shift or mass effect. Midline structures are normally developed. Scattered foci of hypoattenuation are present throughout the periventricular and subcortical white matter, and, although nonspecific by imaging, statistically represent mild chronic microvascular ischemic changes in this age group.No hydrocephalus. Orbits are within normal limits. No obstructive paranasal sinus disease. IMPRESSION: No acute intracranial findings If there is persistent clinical concern for intracranial pathology, MR examination is recommended for further characterization. Signed: Christi Bhatti MDReptorres Verified Date/Time: 02/25/2022 15:02:20 VANCOMYCIN LEVEL, [id number] 13:58:13 Test Item Value Reference Range Interpretation Comments VANCOMYCIN TROUGH (BEAKER) (test 21.3 ug/mL 10.0-20.0 H code = 522) Fluid Power Mechanic ID - CHRIS MArterial doppler legs [id number] 13:04:36Ejection FractionSLEH ECHO HEARTLAB [facility] legs [id number] 13:04:36Ejection FractionSLEH ECHO HEARTLAB [facility](CELLAVISION MANUAL DIFF)2022-02-25 08:34:41 Test Item Value Reference Range Interpretation Comments NEUTROPHILS - REL 51 % (CELLAVISION)(BEAKER) (test code = 2816) LYMPHOCYTES - REL 10 % (CELLAVISION)(BEAKER) (test code = 2817) MONOCYTES - REL 16 % (CELLAVISION)(BEAKER) (test code = 2818) METAMYELOCYTES - REL 4 % 0-0 H (CELLAVISION)(BEAKER) (test code = 2821) MYELOCYTES - REL 12 % 0-0 H (CELLAVISION)(BEAKER) (test code = 2822) BANDS - REL (CELLAVISION)(BEAKER) 6 % 0-10 (test code = 2826) ATYPICAL LYMPHOCYTES - REL 1 % 0-0 H (CELLAVISION)(BEAKER) (test code = 2829) NEUTROPHILS - ABS 11.93 K/ul 1.78-5.38 H (CELLAVISION)(BEAKER) (test code = 2830) LYMPHOCYTES - ABS 2.34 K/ul 1.32-3.57 (CELLAVISION)(BEAKER) (test code = 2831) MONOCYTES - ABS 3.74 K/uL 0.30-0.82 H (CELLAVISION)(BEAKER) (test code = 2832) METAMYELOCYTES - ABS 0.94 K/uL 0.00-0.00 H (CELLAVISION)(BEAKER) (test code = 2836) MYELOCYTES-ABS 2.81 K/uL 0.00-0.00 H (CELLAVISION)(BEAKER) (test code = 2837) BANDS - ABS (CELLAVISION)(BEAKER) 1.40 K/uL 0.00-0.80 H (test code = 2840) ATYPICAL LYMPHOCYTES - ABS 0.23 K/uL 0.00-0.00 H (CELLAVISION)(BEAKER) (test code = 2798) TOTAL COUNTED (BEAKER) (test code 100 = 1351) WBC MORPHOLOGY (BEAKER) (test Normal code = 487) PLT MORPHOLOGY (BEAKER) (test Normal code = 486) POLYCHROMATOPHILLIC RBCS(BEAKER) 3+ many (test code = 478) HYPOCHROMIA (BEAKER) (test code = 1+ few 963) ANISOCYTOSIS (BEAKER) (test code 2+ moderate = 961) MICROCYTES (BEAKER) (test code = 1+ few 965) MACROCYTES (BEAKER) (test code = 2+ moderate 964) POIKILOCYTES (BEAKER) (test code 2+ moderate = 966) TARGET CELLS (BEAKER) (test code 1+ few = 480) SCHISTOCYTES (BEAKER) (test code 2+ moderate = 765) ELLIPTOCYTES (BEAKER) (test code 1+ few = 962) OVALOCYTES (BEAKER) (test code = 2+ moderate 477) TEAR DROP CELLS (BEAKER) (test 1+ few code = 481) VIJAY CELLS (BEAKER) (test code = 1+ few 474) ARTIFACT (CELLAVISION)(BEAKER) Present (test code = 3432) PLATELET CONCENTRATION Adequate (CELLAVISION)(BEAKER) (test code = 3438) Fluid Power Mechanic ID - Tiffanie Mcdonnell comments: Slide comments:CBC W/PLT COUNT & AUTO [id number] 08:34:40 Test Item Value Reference Range Interpretation Comments WHITE BLOOD CELL COUNT (BEAKER) 23.4 K/ L 3.5-10.5 H (test code = 775) RED BLOOD CELL COUNT (BEAKER) 3.50 M/ L 4.63-6.08 L (test code = 761) HEMOGLOBIN (BEAKER) (test code = 8.7 GM/DL 13.7-17.5 L 410) HEMATOCRIT (BEAKER) (test code = 29.2 % 40.1-51.0 L 411) MEAN CORPUSCULAR VOLUME (BEAKER) 83.4 fL 79.0-92.2 (test code = 753) MEAN CORPUSCULAR HEMOGLOBIN 24.9 pg 25.7-32.2 L (BEAKER) (test code = 751) MEAN CORPUSCULAR HEMOGLOBIN CONC 29.8 GM/DL 32.3-36.5 L (BEAKER) (test code = 752) RED CELL DISTRIBUTION WIDTH 21.2 % 11.6-14.4 H (BEAKER) (test code = 412) PLATELET COUNT (BEAKER) (test 251 K/CU MM 150-450 code = 756) MEAN PLATELET VOLUME (BEAKER) 9.9 fL 9.4-12.4 (test code = 754) NUCLEATED RED BLOOD CELLS 2 /100 WBC 0-0 H (BEAKER) (test code = 413) HEPATIC FUNCTION [id number] 04:51:10 Test Item Value Reference Range Interpretation Comments TOTAL PROTEIN (BEAKER) (test code = 5.6 gm/dL 6.0-8.3 L 770) ALBUMIN (BEAKER) (test code = 1145) 2.6 g/dL 3.5-5.0 L BILIRUBIN TOTAL (BEAKER) (test code 1.3 mg/dL 0.2-1.2 H = 377) BILIRUBIN DIRECT (BEAKER) (test 0.7 mg/dL 0.1-0.5 H code = 706) ALKALINE PHOSPHATASE (BEAKER) (test 159 U/L 40-150 H code = 346) AST (SGOT) (BEAKER) (test code = 279 U/L 5-34 H 353) ALT (SGPT) (BEAKER) (test code = 1129 U/L 6-55 H 347) Fluid Power Mechanic ID - CHRIS [id number] 04:51:09 Test Item Value Reference Range Interpretation Comments PHOSPHORUS (BEAKER) (test code = 2.9 mg/dL 2.3-4.7 604) Fluid Power Mechanic ID - CHRIS MBASIC METABOLIC [id number] 04:51:08 Test Item Value Reference Range Interpretation Comments SODIUM (BEAKER) 133 meq/L 136-145 L (test code = 381) POTASSIUM (BEAKER) 4.4 meq/L 3.5-5.1 (test code = 379) CHLORIDE (BEAKER) 105 meq/L 98-107 (test code = 382) CO2 (BEAKER) (test 21 meq/L 22-29 L code = 355) BLOOD UREA NITROGEN 16 mg/dL 7-21 (BEAKER) (test code = 354) CREATININE (BEAKER) 0.73 mg/dL 0.57-1.25 (test code = 358) GLUCOSE RANDOM 89 mg/dL 70-105 (BEAKER) (test code = 652) CALCIUM (BEAKER) 8.0 mg/dL 8.4-10.2 L (test code = 697) EGFR (BEAKER) (test 133 mL/min/1.73 ESTIM ATED GFR IS code = 1092) sq m NOT ACCURATE CREATININE CLEARANCE IN PREDICTING GLOMERULAR FILTRATION RATE . ESTIMATED GFR I S NOT APPLICABLE FOR DIALYSIS PATIEN TS. Fluid Power Mechanic ID - CHRIS [id number] 04:51:08 Test Item Value Reference Range Interpretation Comments MAGNESIUM (BEAKER) (test code = 1.9 mg/dL 1.6-2.6 627) Fluid Power Mechanic ID - CHRIS [id number] 04:34:44 Test Item Value Reference Range Interpretation Comments FIBRINOGEN LEVEL (BEAKER) (test 231 mg/dl 225-434 code = 658) [id number] 04:34:44 Test Item Value Reference Range Interpretation Comments PARTIAL THROMBOPLASTIN TIME 30.5 seconds 22.5-36.0 (BEAKER) (test code = 760) PROTHROMBIN TIME/[id number] 04:34:05 Test Item Value Reference Range Interpretation Comments PROTIME (BEAKER) 19.7 seconds 11.9-14.2 H (test code = 759) INR (BEAKER) (test 1.70 See_Comment [Automat ed message] code = 370) The system [employer] generated this result transmitted ref erence range: <=5.90. The reference range was not used to int erpret this result as normal/abnormal . RECOMMENDED COUMADIN/WARFARIN INR THERAPY RANGESSTANDARD DOSE: 2.0 - 3.0 Includes: PROPHYLAXIS for venous thrombosis, systemic embolization; TREATMENT for venous thrombosis and/or pulmonary embolus.HIGH RISK: Target INR is 2.5-3.5 for patients with mechanical heart valves.LACTIC ACID, [id number] 00:44:59 Test Item Value Reference Range Interpretation Comments LACTATE BLOOD VENOUS (2) (BEAKER) 2.77 mmol/L 0.50-2.20 H (test code = 2872) Fluid Power Mechanic ID - CHRIS MCTA, CHEST, ABDOMEN - PELVIS, FOR [id number] 22:49:00Unlisted Reason for Exam - Click Yes and Enter Reason Below- >YesUnlisted Reason for Exam->Abdominal pain; Pre cardiac surgery; severe MR; EndocarditisJOLEEN ST. [facility] CLE[facility]KEName: MAREK PISANO : 2000 Sex: MFINAL REPORT CLINICAL HISTORY: Necrotizing vasculopathyAbdominal pain; Pre cardiac surgery; severe MR; Endocarditis FINDINGS: Multiple axial images of the chest, abdomen and pelvis were performed before and after the uncomplicated administration of IV contrast utilizing a CTA protocol. Coronal and sagittal reformats were created. 3-D imaging on an independent workstation was also p erformed for optimal visualization of the arterial system in accordance with the aortogram protocol.Oral contrast was not given. This exam was performed according to our departmental dose-optimizationprogram, which includes automated exposure control, adjustment of the mA and/or kV according to patient size and/or use of the iterative reconstruction technique. Comparison: None. Vascular: There is no aortic dissection or aneurysm. No periaortic hematoma is present. There is no major branch vessel occlusion. Aortic root: 1.9 cmMid ascending aorta: 2.4 cmAnterior arch: 2.1 cmPosterior arch: 1.9 cmDescending aorta at left atrium: 1.6 cmDescending aorta at diaphragmatic hiatus: 1.8 cmAbdominal aorta at the celiac origin: 1.7 cmAbdominal aorta at the SMA origin: 1.7 cmAbdominal aorta at the left renal artery origin: 1.2 cmAbdominal aorta proximal to the bifurcation: 1.1 cmLeft common iliac artery: 0.7 cmRight common iliac artery: 0.8 cm The coronary arteries originate as expected and appear grosslypatent. The great vessels are normal in distribution and appearance. The celiac axis and SMA are normal in distribution and appear widely patent. There are 3 left-sided renal arteries and 2 right-sidedrenal arteries. The HANNAH, aortic and iliac bifurcations are patent. Chest: Lung parenchyma and pleural spaces: Moderate to large bilateral pleural effusions with adjacent atelectasis versus pneumonitis.Interstitial coarsening and nonfocal groundglass opacities in the non-atelectatic lungs, probably interstitial edema. No pneumothorax. Tracheobronchial tree: The central tracheobronchial tree is patent. There is peribronchial thickening in the perihilar and dependent lungs, probably interstitial edema. Pulmonary vasculature: Central vascular engorgement. Cardiac contours: Cardiomegaly. Mediastinum: Trace pericardial effusion. Lymph Nodes: No adenopathy in the mediastinum or mihai. Skeleton: No acute abnormality. Other:Diffuse subcutaneous edema. Abdomen and pelvis: Liver: Hepatomegaly, measuring 19 cm in craniocaudal dimension at the right midclavicular line. Gallbladder and biliary tree: No significant findings. Spleen: Heterogeneous enhancement of the spleen with peripheral wedge-shaped hypodensities suggestive of infarction. Adrenal Glands: No significant findings. Kidneys and ureters: Patchy hypoenhancing foci with associated subtle parenchymal thinning in the right greater than left kidneys, suggestive of multifocal infarction. Stomach and Duodenum: No significant findings. Pancreas: No significant findings. Bowel: No significant findings. Appendix: Normal. Bladder: Decompressed Reproductive organs: No significant findings. Other: Moderate volume ascites. Diffuse subcutaneous edema. Skeleton: No acute bony abnormality. IMPRESSION: Normal aorta. Cardiomegaly and CT evidence of biventricular dysfunction including pulmonary edema, bilateral pleural effusions, ascites and diffuse subcutaneous edema. Hepatomegaly. Multifocal splenic infarction. Finding suggesting multifocal renal infarction. Superimposed pyelonephritis should be excluded with urinalysis. Signed: Sudeep Mitchell [facility] Verified Date/Time: 02/24/2022 22:49:25 IC ACID, [id number] 17:35:51 Test Item Value Reference Range Interpretation Comments LACTATE BLOOD VENOUS 2.46 mmol/L 0.50-2.20 H Specime n moderately (2) (BEAKER) (test hemolyzed code = 2872) Fluid Power Mechanic ID - DBCREATINE KINASE (CK)2022-02-24 16:17:17 Test Item Value Reference Range Interpretation Comments CREATINE KINASE TOTAL (BEAKER) (test 52 U/L 29-200 code = 380) Fluid Power Mechanic ID - DBRAD, CHEST, 1 VIEW, NON [id number] 15:33:00Reason for exam:- >evaluate for pulmonary edemaShould this be performed at the bedside?->Yes [facility] : 2000 Sex: MFINAL REPORT TECHNIQUE: Frontal view of the chest. INDICATION: evaluate for pulmonary edema COMPARISON: None. FINDINGS: LINES/TUBES: None. LUNGS: There is increased pulmonary vascular congestion.. There is focal consolidative opacity in the right hilar and infrahilar region which obscures the right heart border and right hemidiaphragm. There is also a band of atelectasis along the fissure in the posterior segment of the right upper lobe.. PLEURA: Hazy opacities in bilateral lungslikely representing small pleural effusions. No pneumothorax. HEART AND MEDIASTINUM: The cardiomediastinal silhouette is mildly enlarged. SOFT TISSUES AND BONES: Unremarkable. IMPRESSION:Pulmonary edema with small bilateral pleural effusions. Perihilar and basilar consolidation concerning for pneumonia. Follow-up to resolution is recommended. Signed: Mitchell Garcia MDReport Verified Date/Time: 02/24/2022 15:33:34 Reading Location: [address] Reading Room HEPATITIS B PCR, QUANTITATIVE 2022-02-24 13:55:05 Test Item Value Reference Range Interpretation Comments HBV RESULT COMPONENT HBV DNA not detected HBV DNA not detected (BEAKER) (test code = 2701) This test uses a Real-Time Polymerase Chain Reaction (RT-PCR) methodology and was performed using DAVID AmpliPrep/DAVID TaqMan HBV Test, v2.0 ([employer]Reportable range for this assay is 20 - 170,000,000 IU per mL (1.30 - 8.23 Log IU/mL).(CELLAVISION MANUAL DIFF)2022-02-24 12:17:04 Test Item Value Reference Range Interpretation Comments NEUTROPHILS - REL 58 % (CELLAVISION)(BEAKER) (test code = 2816) LYMPHOCYTES - REL 9 % (CELLAVISION)(BEAKER) (test code = 2817) MONOCYTES - REL 6 % (CELLAVISION)(BEAKER) (test code = 2818) BASOPHILS - REL 2 % (CELLAVISION)(BEAKER) (test code = 2820) METAMYELOCYTES - REL 6 % 0-0 H (CELLAVISION)(BEAKER) (test code = 2821) MYELOCYTES - REL 15 % 0-0 H (CELLAVISION)(BEAKER) (test code = 2822) PROMYELOCYTES - REL 2 % 0-0 H (CELLAVSION)(BEAKER) (test code = 2825) BANDS - REL (CELLAVISION)(BEAKER) 2 % 0-10 (test code = 2826) NEUTROPHILS - ABS 14.67 K/ul 1.78-5.38 H (CELLAVISION)(BEAKER) (test code = 2830) LYMPHOCYTES - ABS 2.28 K/ul 1.32-3.57 (CELLAVISION)(BEAKER) (test code = 2831) MONOCYTES - ABS 1.52 K/uL 0.30-0.82 H (CELLAVISION)(BEAKER) (test code = 2832) BASOPHILS - ABS 0.51 K/uL 0.01-0.08 H (CELLAVISION)(BEAKER) (test code = 2835) METAMYELOCYTES - ABS 1.52 K/uL 0.00-0.00 H (CELLAVISION)(BEAKER) (test code = 2836) MYELOCYTES-ABS 3.80 K/uL 0.00-0.00 H (CELLAVISION)(BEAKER) (test code = 2837) PROMYELOCYTES - ABS 0.51 K/uL 0.00-0.00 H (CELLAVISION)(BEAKER) (test code = 2838) BANDS - ABS (CELLAVISION)(BEAKER) 0.51 K/uL 0.00-0.80 (test code = 2840) TOTAL COUNTED (BEAKER) (test code 100 = 1351) MANUAL NRBC PER 100 CELLS 1 /100 WBC 0-0 H (BEAKER) (test code = 1353) WBC MORPHOLOGY (BEAKER) (test Normal code = 487) GIANT PLATELETS (BEAKER) (test Present code = 313) POLYCHROMATOPHILLIC RBCS(BEAKER) 1+ few (test code = 478) ANISOCYTOSIS (BEAKER) (test code 2+ moderate = 961) MICROCYTES (BEAKER) (test code = 1+ few 965) MACROCYTES (BEAKER) (test code = 1+ few 964) POIKILOCYTES (BEAKER) (test code 3+ many = 966) SPHEROCYTES (BEAKER) (test code = 1+ few 768) ELLIPTOCYTES (BEAKER) (test code 1+ few = 962) VIJAY CELLS (BEAKER) (test code = 1+ few 474) ARTIFACT (CELLAVISION)(BEAKER) Present (test code = 3432) PLATELET CONCENTRATION Adequate (CELLAVISION)(BEAKER) (test code = 3438) Fluid Power Mechanic ID - duane Recinos comments: Slide comments:CBC W/PLT COUNT & AUTO [id number] 12:17:03 Test Item Value Reference Range Interpretation Comments WHITE BLOOD CELL COUNT (BEAKER) 25.3 K/ L 3.5-10.5 H (test code = 775) RED BLOOD CELL COUNT (BEAKER) 3.43 M/ L 4.63-6.08 L (test code = 761) HEMOGLOBIN (BEAKER) (test code = 8.4 GM/DL 13.7-17.5 L 410) HEMATOCRIT (BEAKER) (test code = 28.2 % 40.1-51.0 L 411) MEAN CORPUSCULAR VOLUME (BEAKER) 82.2 fL 79.0-92.2 (test code = 753) MEAN CORPUSCULAR HEMOGLOBIN 24.5 pg 25.7-32.2 L (BEAKER) (test code = 751) MEAN CORPUSCULAR HEMOGLOBIN CONC 29.8 GM/DL 32.3-36.5 L (BEAKER) (test code = 752) RED CELL DISTRIBUTION WIDTH 20.0 % 11.6-14.4 H (BEAKER) (test code = 412) PLATELET COUNT (BEAKER) (test 290 K/CU MM 150-450 code = 756) MEAN PLATELET VOLUME (BEAKER) 9.9 fL 9.4-12.4 (test code = 754) NUCLEATED RED BLOOD CELLS 2 /100 WBC 0-0 H (BEAKER) (test code = 413) VANCOMYCIN LEVEL, [id number] 11:22:40 Test Item Value Reference Range Interpretation Comments VANCOMYCIN TROUGH (BEAKER) (test 3.1 ug/mL 10.0-20.0 L code = 522) Fluid Power Mechanic ID - DBBASIC METABOLIC [id number] 11:13:55 Test Item Value Reference Range Interpretation Comments SODIUM (BEAKER) 132 meq/L 136-145 L (test code = 381) POTASSIUM (BEAKER) 4.1 meq/L 3.5-5.1 (test code = 379) CHLORIDE (BEAKER) 103 meq/L 98-107 (test code = 382) CO2 (BEAKER) (test 21 meq/L 22-29 L code = 355) BLOOD UREA NITROGEN 15 mg/dL 7-21 (BEAKER) (test code = 354) CREATININE (BEAKER) 0.75 mg/dL 0.57-1.25 (test code = 358) GLUCOSE RANDOM 101 mg/dL 70-105 (BEAKER) (test code = 652) CALCIUM (BEAKER) 7.9 mg/dL 8.4-10.2 L (test code = 697) EGFR (BEAKER) (test 129 mL/min/1.73 ESTIM ATED GFR IS code = 1092) sq m NOT ACCURATE CREATININE CLEARANCE IN PREDICTING GLOMERULAR FILTRATION RATE . ESTIMATED GFR I S NOT APPLICABLE FOR DIALYSIS PATIEN TS. Fluid Power Mechanic ID - DBHEPATIC FUNCTION [id number] 11:12:19 Test Item Value Reference Range Interpretation Comments TOTAL PROTEIN (BEAKER) (test code = 5.5 gm/dL 6.0-8.3 L 770) ALBUMIN (BEAKER) (test code = 1145) 2.5 g/dL 3.5-5.0 L BILIRUBIN TOTAL (BEAKER) (test code 1.4 mg/dL 0.2-1.2 H = 377) BILIRUBIN DIRECT (BEAKER) (test 0.8 mg/dL 0.1-0.5 H code = 706) ALKALINE PHOSPHATASE (BEAKER) (test 171 U/L 40-150 H code = 346) AST (SGOT) (BEAKER) (test code = 420 U/L 5-34 H 353) ALT (SGPT) (BEAKER) (test code = 1310 U/L 6-55 H 347) Fluid Power Mechanic ID - [id number] 11:12:18 Test Item Value Reference Range Interpretation Comments MAGNESIUM (BEAKER) (test code = 2.0 mg/dL 1.6-2.6 627) Fluid Power Mechanic ID - [id number] 11:12:18 Test Item Value Reference Range Interpretation Comments PHOSPHORUS (BEAKER) (test code = 2.8 mg/dL 2.3-4.7 604) Fluid Power Mechanic ID - [id number] 10:57:53 Test Item Value Reference Range Interpretation Comments FIBRINOGEN LEVEL (BEAKER) (test 231 mg/dl 225-434 code = 658) PROTHROMBIN [id number] 10:52:52 Test Item Value Reference Range Interpretation Comments PROTIME (BEAKER) 21.2 seconds 11.9-14.2 H (test code = 759) INR (BEAKER) (test 1.86 See_Comment [Automat ed message] code = 370) The system [employer] generated this result transmitted ref erence range: <=5.90. The reference range was not used to int erpret this result as normal/abnormal . RECOMMENDED COUMADIN/WARFARIN INR THERAPY RANGESSTANDARD DOSE: 2.0 - 3.0 Includes: PROPHYLAXIS for venous thrombosis, systemic embolization; TREATMENT for venous thrombosis and/or pulmonary embolus.HIGH RISK: Target INR is 2.5-3.5 for patients with mechanical heart valves.LACTIC ACID, [id number] 10:47:45 Test Item Value Reference Range Interpretation Comments LACTATE BLOOD VENOUS 2.19 mmol/L 0.50-2.20 Specime n slightly (2) (BEAKER) (test hemolyzed code = 2872) Fluid Power Mechanic ID - PIAYA [id number] 16:32:27 Test Item Value Reference Range Interpretation Comments POTASSIUM (BEAKER) (test code = 3.9 meq/L 3.5-5.1 379) Fluid Power Mechanic ID - DBLACTIC ACID, [id number] 16:07:33 Test Item Value Reference Range Interpretation Comments LACTATE BLOOD VENOUS (2) (BEAKER) 2.54 mmol/L 0.50-2.20 H (test code = 2872) Fluid Power Mechanic ID - DBHEPATITIS C PCR, [id number] 14:20:05 Test Item Value Reference Range Interpretation Comments HCV RESULT COMPONENT HCV RNA not detected HCV RNA not detected (SHANNAN) (test code = 2699) This test uses a Real-Time Polymerase Chain Reaction (RT-PCR) methodology and was performed using DAVID Ampliprep/DAVID TaqMan HCV test kit version 2.0 ([employer]).Reportable range for this assay is 15 - 100,000,000 IU per mL (1.18 - 8.00 Log IU/mL).CMV PCR, [id number] 14:08:54 Test Item Value Reference Range Interpretation Comments CMV VIRAL LOAD - Negative or below See_Comment [Auto mated message] NEGATIVE (SHANNAN) the linear range The sy stem which (test code = of the assay generated this 2558) (<300 IU/mL) result transmit zach reference range : <300 - >3,00 0,000 IU/mL. The refe rence range was not u sed to interpret th is result as normal/abnormal . Cytomegalovirus (CMV) infection can cause significant disease in immunosuppressed patients. However,it is common for CMV to manifest as a limited infection which is of no clinical significance in immunosuppressed patients or in healthy individuals.Viral load measurements are helpful to identify clinical CMV infection and to guide the pre-emptive management of antiviral therapy. For treatment of CMV infection due to reactivation in transplant recipients, a threshold between 4,000 and 5,000 copies/mLis suggested. For treatment of primary CMV infection, a lower threshold can be used.CMV infection may also be monitored using weekly serial measurements. Serial measurements of CMV DNA viral load can be evaluated by identifying a 10-fold change, as well as assessing the CMV DNA viral load and the clinical context for each patient.The plasma CMV DNA viral load was detected using quantitative polymerase chain reaction and fluorescent monitoring of a specific hybridized probe. Genetic variation and other factors can affect the accuracy of nucleic acid testing. Therefore, the results should be interpreted in light of clinical data. A negative result may not exclude the presence of CMV disease.This test was developed and its performance characteristics determined by the [facility] Pathol ogy Department, Section of Molecular Pathology. It has not been cleared or approved by the U.S. Foodand Drug Administration (FDA), since FDA approval is not required for clinical use of the test. Validation was done as required by The Clinical Laboratory Improvement Amendments of 1988.GAGE TITER AND PATTERN 2022-02-23 11:28:39 Test Item Value Reference Range Interpretation Comments GAGE TITER (BEAKER) (test code = :160 1541) GAGE PATTERN (BEAKER) (test code = Nucleolar 1781) ANTI-NUCLEAR ANTIBODY (GAGE)2022-02-23 11:28:32 Test Item Value Reference Range Interpretation Comments ANTI-NUCLEAR ANTIBODY (GAGE) (BEAKER) Positive Negative A (test code = 418) Test performed by IFA method.CBC W/PLT COUNT & AUTO [id number] 08:06:11 Test Item Value Reference Range Interpretation Comments WHITE BLOOD CELL COUNT (BEAKER) 22.4 K/ L 3.5-10.5 H (test code = 775) RED BLOOD CELL COUNT (BEAKER) 3.29 M/ L 4.63-6.08 L (test code = 761) HEMOGLOBIN (BEAKER) (test code = 8.0 GM/DL 13.7-17.5 L 410) HEMATOCRIT (BEAKER) (test code = 26.1 % 40.1-51.0 L 411) MEAN CORPUSCULAR VOLUME (BEAKER) 79.3 fL 79.0-92.2 (test code = 753) MEAN CORPUSCULAR HEMOGLOBIN 24.3 pg 25.7-32.2 L (BEAKER) (test code = 751) MEAN CORPUSCULAR HEMOGLOBIN CONC 30.7 GM/DL 32.3-36.5 L (BEAKER) (test code = 752) RED CELL DISTRIBUTION WIDTH 18.5 % 11.6-14.4 H (BEAKER) (test code = 412) PLATELET COUNT (BEAKER) (test 379 K/CU MM 150-450 code = 756) MEAN PLATELET VOLUME (BEAKER) 10.2 fL 9.4-12.4 (test code = 754) NUCLEATED RED BLOOD CELLS 2 /100 WBC 0-0 H (BEAKER) (test code = 413) (CELLAVISION MANUAL DIFF)2022-02-23 08:06:11 Test Item Value Reference Range Interpretation Comments NEUTROPHILS - REL 72 % (CELLAVISION)(BEAKER) (test code = 2816) LYMPHOCYTES - REL 1 % (CELLAVISION)(BEAKER) (test code = 2817) MONOCYTES - REL 2 % (CELLAVISION)(BEAKER) (test code = 2818) BASOPHILS - REL 1 % (CELLAVISION)(BEAKER) (test code = 2820) METAMYELOCYTES - REL 2 % 0-0 H (CELLAVISION)(BEAKER) (test code = 2821) MYELOCYTES - REL 8 % 0-0 H (CELLAVISION)(BEAKER) (test code = 2822) BANDS - REL (CELLAVISION)(BEAKER) 14 % 0-10 H (test code = 2826) NEUTROPHILS - ABS 16.13 K/ul 1.78-5.38 H (CELLAVISION)(BEAKER) (test code = 2830) LYMPHOCYTES - ABS 0.22 K/ul 1.32-3.57 L (CELLAVISION)(BEAKER) (test code = 2831) MONOCYTES - ABS 0.45 K/uL 0.30-0.82 (CELLAVISION)(BEAKER) (test code = 2832) BASOPHILS - ABS 0.22 K/uL 0.01-0.08 H (CELLAVISION)(BEAKER) (test code = 2835) METAMYELOCYTES - ABS 0.45 K/uL 0.00-0.00 H (CELLAVISION)(BEAKER) (test code = 2836) MYELOCYTES-ABS 1.79 K/uL 0.00-0.00 H (CELLAVISION)(BEAKER) (test code = 2837) BANDS - ABS (CELLAVISION)(BEAKER) 3.14 K/uL 0.00-0.80 H (test code = 2840) TOTAL COUNTED (BEAKER) (test code 100 = 1351) MANUAL NRBC PER 100 CELLS 1 /100 WBC 0-0 H (BEAKER) (test code = 1353) WBC MORPHOLOGY (BEAKER) (test Normal code = 487) PLT MORPHOLOGY (BEAKER) (test Normal code = 486) POLYCHROMATOPHILLIC RBCS(BEAKER) 1+ few (test code = 478) ANISOCYTOSIS (BEAKER) (test code 2+ moderate = 961) MICROCYTES (BEAKER) (test code = 1+ few 965) MACROCYTES (BEAKER) (test code = 2+ moderate 964) POIKILOCYTES (BEAKER) (test code 3+ many = 966) SCHISTOCYTES (BEAKER) (test code 1+ few = 765) SPHEROCYTES (BEAKER) (test code = 1+ few 768) ELLIPTOCYTES (BEAKER) (test code 1+ few = 962) OVALOCYTES (BEAKER) (test code = 2+ moderate 477) VIJAY CELLS (BEAKER) (test code = 3+ many 474) ARTIFACT (CELLAVISION)(BEAKER) Present (test code = 3432) PLATELET CONCENTRATION Adequate (CELLAVISION)(BEAKER) (test code = 3438) Fluid Power Mechanic ID - Amadeoshannan comments: Slide comments:[id number] 04:09:19 Test Item Value Reference Range Interpretation Comments FIBRINOGEN LEVEL (BEAKER) (test 201 mg/dl 225-434 L code = 658) PROTHROMBIN [id number] 04:09:03 Test Item Value Reference Range Interpretation Comments PROTIME (BEAKER) 25.9 seconds 11.9-14.2 H (test code = 759) INR (BEAKER) (test 2.40 See_Comment [Automat ed message] code = 370) The system [employer] generated this result transmitted ref erence range: <=5.90. The reference range was not used to int erpret this result as normal/abnormal . RECOMMENDED COUMADIN/WARFARIN INR THERAPY RANGESSTANDARD DOSE: 2.0 - 3.0 Includes: PROPHYLAXIS for venous thrombosis, systemic embolization; TREATMENT for venous thrombosis and/or pulmonary embolus.HIGH RISK: Target INR is 2.5-3.5 for patients with mechanical heart valves.CALCIUM, [id number] 04:07:05 Test Item Value Reference Range Interpretation Comments CALCIUM IONIZED (BEAKER) (test 1.04 mmol/L 1.12-1.27 L code = 698) PH, BLOOD (BEAKER) (test code = 7.42 1810) BASIC METABOLIC [id number] 03:53:54 Test Item Value Reference Range Interpretation Comments SODIUM (BEAKER) 132 meq/L 136-145 L (test code = 381) POTASSIUM (BEAKER) 2.8 meq/L 3.5-5.1 L (test code = 379) CHLORIDE (BEAKER) 101 meq/L 98-107 (test code = 382) CO2 (BEAKER) (test 22 meq/L 22-29 code = 355) BLOOD UREA NITROGEN 21 mg/dL 7-21 (BEAKER) (test code = 354) CREATININE (BEAKER) 0.75 mg/dL 0.57-1.25 (test code = 358) GLUCOSE RANDOM 113 mg/dL 70-105 H (BEAKER) (test code = 652) CALCIUM (BEAKER) 7.5 mg/dL 8.4-10.2 L (test code = 697) EGFR (BEAKER) (test 129 mL/min/1.73 ESTIM ATED GFR IS code = 1092) sq m NOT ACCURATE CREATININE CLEARANCE IN PREDICTING GLOMERULAR FILTRATION RATE . ESTIMATED GFR I S NOT APPLICABLE FOR DIALYSIS PATIEN TS. Fluid Power Mechanic ID - ADRIENNE [id number] 03:53:39 Test Item Value Reference Range Interpretation Comments PHOSPHORUS (BEAKER) (test code = 2.7 mg/dL 2.3-4.7 604) Fluid Power Mechanic ID Christopher DELEON LHEPATIC FUNCTION [id number] 03:53:39 Test Item Value Reference Range Interpretation Comments TOTAL PROTEIN (BEAKER) (test code = 5.1 gm/dL 6.0-8.3 L 770) ALBUMIN (BEAKER) (test code = 1145) 2.4 g/dL 3.5-5.0 L BILIRUBIN TOTAL (BEAKER) (test code 1.3 mg/dL 0.2-1.2 H = 377) BILIRUBIN DIRECT (BEAKER) (test 0.8 mg/dL 0.1-0.5 H code = 706) ALKALINE PHOSPHATASE (BEAKER) (test 162 U/L 40-150 H code = 346) AST (SGOT) (BEAKER) (test code = 1558 U/L 5-34 H 353) ALT (SGPT) (BEAKER) (test code = 2009 U/L 6-55 H 347) Fluid Power Mechanic ID - ADRIENNE [id number] 03:53:38 Test Item Value Reference Range Interpretation Comments MAGNESIUM (BEAKER) (test code = 2.0 mg/dL 1.6-2.6 627) Fluid Power Mechanic ID - ADRIENNE LLACTIC ACID, [id number] 03:46:16 Test Item Value Reference Range Interpretation Comments LACTATE BLOOD VENOUS 1.51 mmol/L 0.50-2.20 Specime n slightly (2) (BEAKER) (test hemolyzed code = 2872) Fluid Power Mechanic ID - PIAYA LSARS-COV2/RT-PCR ([facility])2022-02-23 01:42:58 Test Item Value Reference Range Interpretation Comments SARS-COV2/RT-PCR (test Negative Not Detected, Negative, code = 9760816) See external report for linked test SARS-COV-2 PERFORMING LAB [facility] NEFTALI (test code = 4602838) Negative result for this test determines that SARS-CoV-2 RNA was not present in the specimen above the Limit of Detection (LOD). However, Negative results do not preclude SARS-CoV-2 infection and should not be used as the sole basis for treatment or patient management decisions. Negative results must be combined with clinical observations, patient history, and epidemiological information. A false negative result may occur if a specimen is improperly collected, transported or handled. A false negative result should be considered if patient's recent exposures or clinical presentation indicate that COVID-19 (SARS-CoV-2) is likely and diagnostic tests for other causes of illness are negative. Re-testing should be considered in cases of suspected false negatives.The limit of detection for this assay is 800 copies/mL.This SARS CoV-2 test is a real-time RT-PCR test intended for the qualitative detection of nucleic acid from SARS-CoV-2 in a nasopharyngeal swab specimen collected from individuals suspected of COVID-19 by their healthcare provider.This test has not been Food and Drug Administration (FDA) cleared or approved. This is a modified version of an approved Emergency Use Authorization (EUA) and is in the process of review by the FDA. Once authorized by the FDA, the issued EUA will be effective until the declaration that circumstances exist justifying the authorization of the emergency use ofin vitro diagnostic tests for detection and/or diagnosis of COVID-19 is terminated under Section 564(b)(2) of the Act or the EUA is revoked under Section 564(g) of the Act.Fact Sheet for Healthcare Prov iders:https://www.Geodruid.FlickIM/sites/default/files/product/documents/Fact_Sheet_HC _Xopwsoczf_Ezbt_PDXK-NeK-5.pdfFact Sheet for Healthcare Patients:https://www.[employer]ruid.FlickIM/sites/default/files/product/docume nts/Loxt_Qkbhf_Laegvqbb_Epyy_ULMR-AzM-2.pdfPerforming Laboratory:[facility].[place], [place] [address]KVQE SENSITIVITY TROPONIN [id number] 23:20:37 Test Item Value Reference Range Interpretation Comments HIGH SENSITIVITY 60 pg/ml See_Comment H [Automated message] TROPONIN I (test code = The system which [id number]) generated this result transmitted ref erence range: <=35. Th e reference range was not used to int erpret this result as normal/abnormal . Fluid Power Mechanic ID - BSThe PLANT MAINTENANCE TECHNICIAN STAT High Sensitivity Troponin-I results should be used in conjunctionwith other diagnostic information such as ECG, clinical observations and information, and patient symptoms to aid in the diagnosis of [place].LACTIC ACID, [id number] 23:17:05 Test Item Value Reference Range Interpretation Comments LACTATE BLOOD VENOUS (2) (BEAKER) 2.26 mmol/L 0.50-2.20 H (test code = 2872) Fluid Power Mechanic ID - BSOperator ID - [id number] 16:23:26 Test Item Value Reference Range Interpretation Comments PROCALCITONIN (BEAKER) (test code 3.38 ng/mL <0.05 H = 3036) SEPSIS RISK (ng/mL)Low: 0.05-0.50Intermediate: 0.51-2.00High: >=2.01 HEMOGLOBIN AND [id number] 16:14:08 Test Item Value Reference Range Interpretation Comments HEMOGLOBIN (BEAKER) (test code = 8.3 GM/DL 13.7-17.5 L 410) HEMATOCRIT (BEAKER) (test code = 26.7 % 40.1-51.0 L 411) Fluid Power Mechanic ID - 6000LACTIC ACID, [id number] 16:06:01 Test Item Value Reference Range Interpretation Comments LACTATE BLOOD VENOUS (2) (BEAKER) 2.13 mmol/L 0.50-2.20 (test code = 2872) Fluid Power Mechanic ID - BSCOMPLEMENT COMPONENT [id number] 15:03:19 Test Item Value Reference Range Interpretation Comments C4 COMPLEMENT (BEAKER) (test code = < mg/dL 15-57 L 394) Fluid Power Mechanic ID - BSCOMPLEMENT COMPONENT [id number] 14:46:11 Test Item Value Reference Range Interpretation Comments C3 COMPLEMENT (BEAKER) (test code = 22 mg/dL 82-193 L 393) Fluid Power Mechanic ID - [id number] 14:30:46 Test Item Value Reference Range Interpretation Comments FERRITIN (BEAKER) (test code = 2992.85 ng/mL 5.00-275.00 H 361) Fluid Power Mechanic ID - ADRIENNE LOperator ID - ADRIENNE LVITAMIN B12 AND [id number] 14:30:41 Test Item Value Reference Range Interpretation Comments VITAMIN B12 > pg/mL 213-816 H (BEAKER) (test code = 774) FOLATE (BEAKER) 15.00 ng/mL See_Comment [Automated message] (test code = 362) The system which generated this result transmitted ref erence range: >=7.00. The reference range was not used to interpr et this result as normal/abnormal . Fluid Power Mechanic ID - ELIZARIMMA TEE/S, DUPLEX, [id number] 14:27:00Reason for exam:- >r/o pvtMODESTO STATE HOSPITALName: MAREK PISANOLaxmi : 2000 Sex: MFINAL REPORT U/S, DUPLEX, DOPPLER CLINICAL HISTORY: r/o PVT COMPARISON: 02/22/2022TECHNIQUE: Spectral and color Doppler images of the abdominal organs and hepatic vasculature. FINDINGS: Portal veins: Normal, hepatopetal flow. Normal diameter main portal vein measuring 1.1 cm in diameter with peak velocity 18.4 cm/s Hepatic arteries and veins: Patent with appropriate waveforms where visualized. Right hepatic artery not visualized. Hepatic artery resistive indices are 0.7 on the left and 0.7 in the proper hepatic artery. Normal acceleration time in the proper hepatic artery. Dilated hepatic veins Spleen: Moderately enlarged. Patent splenic artery and vein. Visualized aorta and IVC: IVC is dilated. MEASUREMENTS:Aorta: 1.9 cm IMPRESSION: No sonographic evidence for portal vein thrombus. Dilated IVC and hepatic veins suggesting elevated central venous pressures or hypervolemia. Moderate hepatomegaly Right hepatic artery was not visualized, possibly artifactual. Signed: Jennifer Estrada MDReport Verified Date/Time: 02/22/2022 14:27:04 COMPREHENSIVE METABOLIC [id number] 13:51:49 Test Item Value Reference Range Interpretation Comments TOTAL PROTEIN 5.3 gm/dL 6.0-8.3 L Specimen sligh tly (BEAKER) (test code = hemoly zed 770) ALBUMIN (BEAKER) 2.5 g/dL 3.5-5.0 L Specimen sl ightly (test code = 1145) hemolyzed ALKALINE PHOSPHATASE 168 U/L 40-150 H (BEAKER) (test code = 346) BILIRUBIN TOTAL 1.4 mg/dL 0.2-1.2 H Specimen sli ghtly (BEAKER) (test code = hemoly zed 377) SODIUM (BEAKER) (test 131 meq/L 136-145 L code = 381) POTASSIUM (BEAKER) 3.4 meq/L 3.5-5.1 L Specimen slightly (test code = 379) hemolyzed CHLORIDE (BEAKER) 100 meq/L 98-107 (test code = 382) CO2 (BEAKER) (test 19 meq/L 22-29 L code = 355) BLOOD UREA NITROGEN 31 mg/dL 7-21 H (BEAKER) (test code = 354) CREATININE (BEAKER) 1.17 mg/dL 0.57-1.25 Specimen slightly (test code = 358) hemolyzed GLUCOSE RANDOM 129 mg/dL 70-105 H (BEAKER) (test code = 652) CALCIUM (BEAKER) 7.8 mg/dL 8.4-10.2 L (test code = 697) AST (SGOT) (BEAKER) 3248 U/L 5-34 H Specimen slightly (test code = 353) hemolyzed ALT (SGPT) (BEAKER) 2468 U/L 6-55 H Specimen slightly (test code = 347) hemolyzed EGFR (BEAKER) (test 77 mL/min/1.73 ESTIMA ZACH GFR IS code = 1092) sq m NOT ACCURATE CREATININE CLEARANCE IN PREDICTING GLOMERULAR FILTRATION RATE . ESTIMATED GFR I S NOT APPLICABLE FOR DIALYSIS PATIEN TS. Fluid Power Mechanic ID - ADRIENNE MAYS, TIBC, % SAT. (WITHOUT FERRITIN)2022-02-22 13:05:26 Test Item Value Reference Range Interpretation Comments IRON (BEAKER) (test code = 547) 181.0 ug/dL 40.0-160.0 H TOTAL IRON BINDING CAPACITY 176 ug/dL 250-450 L (BEAKER) (test code = 769) IRON % SATURATION (2) (BEAKER) 103 % 20-55 H (test code = 2590) Fluid Power Mechanic ID - [id number] 11:53:00 Test Item Value Reference Range Interpretation Comments RPR SCREEN (BEAKER) (test code = Nonreactive Nonreactive 420) 2D Echo W/Doppler(CW/PW/Color)2022-02-22 11:47:40Ejection FractionSLEH [facility] W/Doppler(CW/PW/Color)2022-02-22 11:47:40Ejection FractionSLEH ECHO [facility]22[facility] 10:24:42 Test Item Value Reference Range Interpretation Comments ETHANOL (BEAKER) < mg/dL See_Comment [Automated message] The (test code = 400) system [facility] generated this result tra nsmitted reference range : <=10. The reference r oy was not used to int erpret this result as normal/abnormal . Fluid Power Mechanic ID - BSEBV ANTIBODY, [id number] 10:16:24 Test Item Value Reference Range Interpretation Comments DALE SANTIAGO VIRAL CAPSID Positive Negative, Equivocal A ANTIGEN IGG (BEAKER) (test code = 3415) Dale Santiago Viral Capsid Antigen IgG Result Interpretation: </= 0.8 Al Negative 0.9-1.0 Al Equivocal >/= 1.1 Al PositiveCYTOMEGALOVIRUS ANTIBODY, [id number] 10:16:24 Test Item Value Reference Range Interpretation Comments CYTOMEGALOVIRUS, IGG (BEAKER) Positive Negative, Equivocal A (test code = 3429) CMV IgG Result Interpretation: </= 0.8 Al Negative 0.9-1.0 Al Equivocal >/=1.1 Al PositiveEBV ANTIBODY, [id number] 10:16:22 Test Item Value Reference Range Interpretation Comments DALE SANTIAGO VIRAL CAPSID Negative Negative, Equivocal ANTIGEN IGM (BEAKER) (test code = 3418) Dale Santiago Viral Capsid Antigen IgM Result Interpretation: </= 0.8 Al Negative 0.9-1.0 Al Equivocal >/= 1.1 Al PositiveLACTIC ACID, VENOUS 2022-02-22 10:16:15 Test Item Value Reference Range Interpretation Comments LACTATE BLOOD VENOUS (2) (BEAKER) 3.80 mmol/L 0.50-2.20 H (test code = 2872) Fluid Power Mechanic ID - BSVANCOMYCIN LEVEL, [id number] 06:14:35 Test Item Value Reference Range Interpretation Comments VANCOMYCIN TROUGH (BEAKER) (test 10.4 ug/mL 10.0-20.0 code = 522) Fluid Power Mechanic ID - ADRIENNE TEE/S, ABDOMINAL, [id number] 05:15:00Abdomen limited area? Add comment if clarification is needed.->LiverReason for exam:->Evaluatefor etiology of acute liver failure [facility] CLEARLAKEName: MAREK PISANO : 2000 Sex: MFINAL REPORT U/S, ABDOMINAL, LIMITED CLINICAL HISTORY: Evaluate for etiology of acute liver failure Comparison: None Technique: Real-time transabdominal ultrasound of the right upper quadrant abdomen was performed. Liver: 23.0 cm, heterogeneous echotexture without focal lesion. Gallbladder: No gallstones. Gallbladder wall measures 0.4 cm. No pericholecystic fluid. No sonographic Clinton's sign. Biliary tree: No intrahepatic ductal dilatation. CBD: 0.3 cm. Pancreas: Not well-seen. Right kidney: No acute findings. Trace ascites is present in the abdomen. The visualized portions of the abdominal aorta, IVC and hepatic veins are unremarkable. Impression: Hepatomegaly and nonspecific heterogeneous liver echotexture. Mild gallbladder wall thickening may be secondary to hepatic dysfunction or cholecystitis the appropriate context. HIDA scan correlation may be of benefit for further characterization. Trace ascites. Signed: Marvin Milton MDReport Verified Date/Time: 02/22/2022 05:15:37 (CELLAVISION MANUAL DIFF)2022-02-22 05:10:18 Test Item Value Reference Range Interpretation Comments NEUTROPHILS - REL 83 % (CELLAVISION)(BEAKER) (test code = 2816) LYMPHOCYTES - REL 2 % (CELLAVISION)(BEAKER) (test code = 2817) MONOCYTES - REL 1 % (CELLAVISION)(BEAKER) (test code = 2818) BASOPHILS - REL 1 % (CELLAVISION)(BEAKER) (test code = 2820) METAMYELOCYTES - REL 2 % 0-0 H (CELLAVISION)(BEAKER) (test code = 2821) MYELOCYTES - REL 3 % 0-0 H (CELLAVISION)(BEAKER) (test code = 2822) BANDS - REL (CELLAVISION)(BEAKER) 8 % 0-10 (test code = 2826) NEUTROPHILS - ABS 25.23 K/ul 1.78-5.38 H (CELLAVISION)(BEAKER) (test code = 2830) LYMPHOCYTES - ABS 0.61 K/ul 1.32-3.57 L (CELLAVISION)(BEAKER) (test code = 2831) MONOCYTES - ABS 0.30 K/uL 0.30-0.82 (CELLAVISION)(BEAKER) (test code = 2832) BASOPHILS - ABS 0.30 K/uL 0.01-0.08 H (CELLAVISION)(BEAKER) (test code = 2835) METAMYELOCYTES - ABS 0.61 K/uL 0.00-0.00 H (CELLAVISION)(BEAKER) (test code = 2836) MYELOCYTES-ABS 0.91 K/uL 0.00-0.00 H (CELLAVISION)(BEAKER) (test code = 2837) BANDS - ABS (CELLAVISION)(BEAKER) 2.43 K/uL 0.00-0.80 H (test code = 2840) TOTAL COUNTED (BEAKER) (test code 100 = 1351) MANUAL NRBC PER 100 CELLS (BEAKER) 1 /100 WBC 0-0 H (test code = 1353) LARGE PLT(BEAKER) (test code = Present 2156) VACUOLATED NEUTROPHILS (BEAKER) Present (test code = 483) ANISOCYTOSIS (BEAKER) (test code = 1+ few 961) MACROCYTES (BEAKER) (test code = 1+ few 964) POIKILOCYTES (BEAKER) (test code = 3+ many 966) SPHEROCYTES (BEAKER) (test code = 1+ few 768) OVALOCYTES (BEAKER) (test code = 1+ few 477) VIJAY CELLS (BEAKER) (test code = 3+ many 474) ARTIFACT (CELLAVISION)(BEAKER) Present (test code = 3432) PLATELET CONCENTRATION Adequate (CELLAVISION)(BEAKER) (test code = 3438) Fluid Power Mechanic ID - Rachid comments: Slide comments:CBC W/PLT COUNT & AUTO [id number] 05:10:17 Test Item Value Reference Range Interpretation Comments WHITE BLOOD CELL COUNT (BEAKER) 30.4 K/ L 3.5-10.5 H (test code = 775) RED BLOOD CELL COUNT (BEAKER) 3.23 M/ L 4.63-6.08 L (test code = 761) HEMOGLOBIN (BEAKER) (test code = 8.0 GM/DL 13.7-17.5 L 410) HEMATOCRIT (BEAKER) (test code = 26.1 % 40.1-51.0 L 411) MEAN CORPUSCULAR VOLUME (BEAKER) 80.8 fL 79.0-92.2 (test code = 753) MEAN CORPUSCULAR HEMOGLOBIN 24.8 pg 25.7-32.2 L (BEAKER) (test code = 751) MEAN CORPUSCULAR HEMOGLOBIN CONC 30.7 GM/DL 32.3-36.5 L (BEAKER) (test code = 752) RED CELL DISTRIBUTION WIDTH 18.3 % 11.6-14.4 H (BEAKER) (test code = 412) PLATELET COUNT (BEAKER) (test 372 K/CU MM 150-450 code = 756) MEAN PLATELET VOLUME (BEAKER) 9.5 fL 9.4-12.4 (test code = 754) NUCLEATED RED BLOOD CELLS 0 /100 WBC 0-0 (BEAKER) (test code = 413) ACETAMINOPHEN [id number] 04:58:58 Test Item Value Reference Range Interpretation Comments ACETAMINOPHEN LEVEL (BEAKER) (test < ug/mL 10.0-30.0 L code = 344) Therapeutic Range: 10.0-30.0 g/mLToxic Levels: >200.0 g/mLOperator ID - BSOperator ID - PIAYA LHEPATIC FUNCTION [id number] 04:36:01 Test Item Value Reference Range Interpretation Comments TOTAL PROTEIN (BEAKER) (test code = 5.4 gm/dL 6.0-8.3 L 770) ALBUMIN (BEAKER) (test code = 1145) 2.7 g/dL 3.5-5.0 L BILIRUBIN TOTAL (BEAKER) (test code 1.3 mg/dL 0.2-1.2 H = 377) BILIRUBIN DIRECT (BEAKER) (test 0.9 mg/dL 0.1-0.5 H code = 706) ALKALINE PHOSPHATASE (BEAKER) (test 175 U/L 40-150 H code = 346) AST (SGOT) (BEAKER) (test code = > U/L 5-34 H 353) ALT (SGPT) (BEAKER) (test code = 2572 U/L 6-55 H 347) Fluid Power Mechanic ID - BSLACTIC ACID, [id number] 04:33:04 Test Item Value Reference Range Interpretation Comments LACTATE BLOOD VENOUS (2) (BEAKER) 4.15 mmol/L 0.50-2.20 HH (test code = 2872) Fluid Power Mechanic ID - BSHEPATITIS PANEL, [id number] 04:30:57 Test Item Value Reference Range Interpretation Comments HEPATITIS A IGM ANTIBODY (BEAKER) Nonreactive Nonreactive (test code = 498) HEPATITIS B CORE IGM ANTIBODY Nonreactive Nonreactive (BEAKER) (test code = 645) HEPATITIS C ANTIBODY (BEAKER) Reactive Nonreactive A (test code = 367) HEPATITIS B SURFACE ANTIGEN (2) Nonreactive Nonreactive (BEAKER) (test code = 2585) Fluid Power Mechanic ID - BSHEPATITIS B SURFACE [id number] 04:30:49 Test Item Value Reference Range Interpretation Comments HEPATITIS B SURFACE ANTIBODY < mIU/mL <8.0 (BEAKER) (test code = 647) Fluid Power Mechanic ID - BSHEPATITIS A [id number] 04:30:43 Test Item Value Reference Range Interpretation Comments HEPATITIS A IGM ANTIBODY (BEAKER) Nonreactive Nonreactive (test code = 498) HEPATITIS A IGG ANTIBODY (BEAKER) Reactive Nonreactive A (test code = 2797) Fluid Power Mechanic ID - BSBASIC METABOLIC [id number] 04:30:04 Test Item Value Reference Range Interpretation Comments SODIUM (BEAKER) 129 meq/L 136-145 L (test code = 381) POTASSIUM (BEAKER) 4.9 meq/L 3.5-5.1 (test code = 379) CHLORIDE (BEAKER) 98 meq/L 98-107 (test code = 382) CO2 (BEAKER) (test 17 meq/L 22-29 L code = 355) BLOOD UREA NITROGEN 36 mg/dL 7-21 H (BEAKER) (test code = 354) CREATININE (BEAKER) 1.60 mg/dL 0.57-1.25 H (test code = 358) GLUCOSE RANDOM 85 mg/dL 70-105 (BEAKER) (test code = 652) CALCIUM (BEAKER) 7.7 mg/dL 8.4-10.2 L (test code = 697) EGFR (BEAKER) (test 54 mL/min/1.73 ESTIMA ZACH GFR IS code = 1092) sq m NOT ACCURATE CREATININE CLEARANCE IN PREDICTING GLOMERULAR FILTRATION RATE . ESTIMATED GFR I S NOT APPLICABLE FOR DIALYSIS PATIEN TS. Fluid Power Mechanic ID - BSHEPATITIS B CORE ANTIBODY, [id number] 04:29:05 Test Item Value Reference Range Interpretation Comments HEPATITIS B CORE TOTAL ANTIBODY Nonreactive Nonreactive (SHANNAN) (test code = 497) Fluid Power Mechanic ID - BSHIV-1 ANTIGEN WITH HIV-1/2 [id number] 04:24:43 Test Item Value Reference Range Interpretation Comments HIV-1 ANTIGEN WITH HIV 1\\T\\2 Nonreactive Nonreactive ANTIBODY (2) (SHANNAN) (test code = 2586) Fluid Power Mechanic ID - [id number] 03:57:10 Test Item Value Reference Range Interpretation Comments PARTIAL THROMBOPLASTIN TIME 29.7 seconds 22.5-36.0 (SHANNAN) (test code = 760) PROTHROMBIN TIME/[id number] 03:56:52 Test Item Value Reference Range Interpretation Comments PROTIME (SHANNAN) 27.6 seconds 11.9-14.2 H (test code = 759) INR (SHANNAN) (test 2.61 See_Comment [Automat ed message] code = 370) The system [employer] generated this result transmitted ref erence range: <=5.90. The reference range was not used to int erpret this result as normal/abnormal . RECOMMENDED COUMADIN/WARFARIN INR THERAPY RANGESSTANDARD DOSE: 2.0 - 3.0 Includes: PROPHYLAXIS for venous thrombosis, systemic embolization; TREATMENT for venous thrombosis and/or pulmonary embolus.HIGH RISK: Target INR is 2.5-3.5 for patients with mechanical heart valves.[id number] 03:48:30 Test Item Value Reference Range Interpretation Comments AMMONIA (SHANNAN) (test code = 348) 95 mol/L 18-72 H Fluid Power Mechanic ID - BSRAPID STREP SCREEN FOR GROUP [id number] 20:12:44 Test Item Value Reference Range Interpretation Comments Streptococcus pyogenes (group A) Negative Negative antigen (test code = 43858-4) Lab Interpretation (test code = Normal 89683-2) [facility] [id number] 21:49:08CT Abdomen and Pelvis with intravenous contrast. CLINICAL HISTORY: Generalized abdominal pain. Bloody diarrhea. DOSE: Up-to-date CT equipment and radiation dose reduction techniques wereemployed. CTDIvol: 4.71 mGy. DLP: 242 mGy-cm. TECHNIQUE : Contiguous axial imaging from the level of the lung basesth rough the pubic symphysis were performed after the uncomplicatedadministration of Omnipaque contrastmaterial. Coronal and sagittalreconstructions were obtained. Auto mA and/or iterative reconstructionwereused to reduce radiation dose. FINDINGS: Comparison is made with 10/05/2019 study. Lower lungs: Clear. No pleural effusion or pericardial effusion. No signsof a hiatal hernia. Liver, Gallbladder and Spleen: Liver measures 16.6 cm in length and spleenis approximately 11.4 x 4 cm. No enhancing lesions are detected in theliver, however, only arterial and portal venous phases are imaged. No calcified gallstones. Biliary ducts and the pancreatic duct appear ofnormal size. Peritoneum: ?No free air or free fluid. No lymphadenopathy. Pancreas and Adrenals: ?Unremarkable pancreas and adrenal glands. Kidneys and Ureters: No enhancing kidney lesions. High density material inthe collecting system of both kidneys is probably excreted contrast medium.Small kidney stones cannot be ruled out by this examination. No hydroureteror hydronephrosis. Vessels: 2 right renal arteries and 3 left renal arteries notedarisingfrom the abdominal aorta. Filling defect in the superior mesenteric vein as well as portal veinnoted, likely flow- related artifacts, unlikely to be blood clots. Retroperitoneum: No abnormal fluid or lymphadenopathy. Bowel: Unremarkable intestinal gas pattern. Normal appendix is visualized. Bladder and Reproductive Organs: Grossly unremarkable, under distended andunopacified urinary bladder. Bones: Unremarkable. Soft tissues: Unremarkable. CONCLUSION: No acute intra-abdominal or pelvic abnormal ities detected. [facility], Radiant Results Inft User - 06/29/2020 4:50 PM CDTCT Abdomen and Pelvis with intravenous contrast.CLINICAL HISTORY: Generalized abdominal pain. Bloody diarrhea.DOSE: Up-to-date CTequipment and radiation dose reduction techniques wereemployed. CTDIvol: 4.71 mGy. DLP: 242 mGy-cm.TECHNIQUE : Contiguous axial imaging from the level of the lung basesthrough the pubic symphysis were performed after the uncomplicatedadministration of Omnipaque contrast material. Coronal and sagittalreconstructions were obtained. Auto mA and/or iterative reconstruction wereused to reduce radiation dose.FINDINGS: Comparison is made with 10/05/2019 study.Lower lungs: Clear. No pleural effusion or pericardial effusion. No signsof a hiatal hernia.Liver, Gallbladder and Spleen: Liver measures 16.6 cm inlength and spleenis approximately 11.4 x 4 cm. No enhancing lesions are detected in theliver, however, only arterial and portal venous phases are imaged.No calcified gallstones. Biliary ducts and the pa ncreatic duct appear ofnormal size.Peritoneum: No free air or free fluid. No lymphadenopathy.Pancreas and Adrenals: Unremarkable pancreas and adrenal glands.Kidneys and Ureters: No enhancing kidney lesions. High density material inthe collecting system of both kidneys is probably excreted contrast medi um.Small kidney stones cannot be ruled out by this examination. No hydroureteror hydronephrosis. Vessels: 2 right renal arteries and 3 left renal arteries noted arisingfrom the abdominal aorta.Filling defect in the superior mesenteric vein as well as portal veinnoted, likely flow-related artifacts, unlikely to be blood clots.Retroperitoneum: No abnormal fluid or lymphadenopathy.Bowel: Unremarkable intestinal gas pattern. Normal appendix is visualized.Bladder and Reproductive Organs: Grossly unremarkable, under distended andunopacified urinary bladder.Bones: Unremarkable.Soft tissues: Unremarkable.CONCLUSION: No acute intra-abdominal or pelvic abnormalities detected.[facility] 21:22:00 Test Item Value Reference Range Interpretation Comments APPEARANCE (test code = Hazy Clear A 3878086562) COLOR (test code = Yellow Yellow 6918069740) PH (test code = 4.8-8.0 2058916166) SP GRAVITY (test code = 1.003-1.030 2809570037) GLU U QUAL (test code = Normal Normal 8630214665) BLOOD (test code = 1+ Negative A 9003086952) KETONES (test code = Negative Negative 9846151270) PROTEIN (test code = Negative Negative 2887-8) UROBILIN (test code = Normal Normal 6096476181) BILIRUBIN (test code = Negative Negative 2443791046) NITRITE (test code = Negative Negative 9285110720) LEUK DEANDRE (test code = Negative Negative 6643438584) RBC/HPF (test code = See_Comment H [Autom ated message] 5765983471) The system [employer] generated this result transmitted ref erence range: 0 - 3 HP F. The reference range was not used to int erpret this result as normal/abnormal . WBC/HPF (test code = See_Comment [Autom ated message] 0085945658) The system [employer] generated this result transmitted ref erence range: 0 - 5 HP F. The reference range was not used to int erpret this result as normal/abnormal . BACTERIA (test code = Negative Negative 2882201505) MUCOUS (test code = Slight Negative LPF A 5189217382) Lab Interpretation (test Abnormal code = 17687-8) [facility]COMP[facility] METABOLIC PANEL (31674)2020-06-29 21:03:00 Test Item Value Reference Range Interpretation Comments NA (test code = 139 mmol/L 135-145 5164435483) K (test code = 3.9 mmol/L 3.5-5 5656309061) CL (test code = 102 mmol/L 98-108 4776687656) CO2 TOTAL (test code = 27 mmol/L 23-31 5340886915) AGAP (test code = 2-16 4991663607) BUN (test code = 11 mg/dL 7-23 2833710685) GLUCOSE (test code = 87 mg/dL 70-110 8592956390) CREATININE (test code = 0.89 mg/dL 0.6-1.25 3683859259) TOTAL BILI (test code = 0.3 mg/dL 0.1-1.5 6322111489) CALCIUM (test code = 10.2 mg/dL 8.6-10.6 9970270610) T PROTEIN (test code = 8.6 g/dL 6.3-8.2 H 8879877405) ALBUMIN (test code = 5.0 g/dL 3.5-5 9802507475) ALK PHOS (test code = 67 U/L 34-122 7913548413) ALTv (test code = 37 U/L 5-50 1742-6) AST(SGOT) (test code = 32 U/L 13-40 8566757385) eGFR Calculation mL/min/1.73m2 (Non-) (test code = 4334536944) eGFR Calculation mL/min/1.73m2 () (test code = 7282062799) TOR (test code = TOR) Association of [...] tests). Lab Interpretation Abnormal (test code = 20486-1) [facility]2020-[facility] 21:02:00 Test Item Value Reference Range Interpretation Comments LIPASE (test code = 7743692431) 27 U/L 0-220 Lab Interpretation (test code = Normal 64839-9) [facility] HospitalCB WITH [id number] 20:53:00 Test Item Value Reference Range Interpretation Comments WBC (test code = See_Comment [Automated 0946-2) message] The sy stem which generated this result transmitted reference range : 4.20 - 10.70 10*3/?L. The reference range was not used to interpret this result as normal/abnormal . RBC (test code = See_Comment [Automated 794-8) message] The sy stem which generated this [...] RDW-SD (test code = 43.6 fL 38.5-51.6 31306-8) RDW-CV (test code = 13.2 % 12.1-15.4 788-0) PLT (test code = See_Comment H [Automated 777-3) message] The sy stem which generated this result transmitted reference range : 150 - 328 10*3/ ?L. The reference r yo was not used to interpret this result as normal/abnormal . MPV (test code = 9.3 fL 9.8-13 L 44402-1) NRBC/100 WBC (test See_Comment [Automat ed code = 0641434849) message] The system which generated this result transmitted reference range : 0.0 - 10.0 /100 WBCs. The refer ence range was not u sed to interpret th is result as normal/abnormal . NRBC x10^3 (test code <0.01 See_Comment [Auto mated = 3300040677) message] The s ystem which generated this result transmitted reference range : 10*3/?L. The reference range was not used to interpret this result as normal/abnormal . GRAN MAT (NEUT) % 44.3 % (test code = 770-8) IMM GRAN % (test code 1.70 % = 9555972265) LYMPH % (test code = 39.1 % 736-9) MONO % (test code = 6.8 % 5905-5) EOS % (test code = 7.2 % 713-8) BASO % (test code = 0.9 % 706-2) GRAN MAT x10^3(ANC) 3.41 10*3/uL 1.99-6.95 (test code = 5870127020) IMM GRAN x10^3 (test 0.13 10*3/uL 0-0.06 H code = 0077632452) LYMPH x10^3 (test code 3.01 10*3/uL 1.09-3.23 = 731-0) MONO x10^3 (test code 0.52 10*3/uL 0.36-1.02 = 742-7) EOS x10^3 (test code = 0.55 10*3/uL 0.06-0.53 H 711-2) BASO x10^3 (test code 0.07 10*3/uL 0.01-0.09 = 704-7) Lab Interpretation Abnormal (test code = 56861-8) [facility]] TSH, 3RD GENERATION W/REFLEX TO FT4 2018-04-10 09:01:01 Test Item Value Reference Range Interpretation Comments TSH (test code = 59880-0) 1.760 {uIU/ml} 0.360-3.740 [facility]] HEPATITIS [id number] 09:01:01 Test Item Value Reference Range Interpretation Comments Hepatitis B Surface Antigen (test Negative Negative code = 5195-3) Hepatitis C Antibody (test code = Negative 90720-9) Hepatitis B Core IgM (test code = Negative Negative 93949-0) Hepatitis A IgM (test code = Negative Negative 97568-2) [facility][] HIV AB, HIV 1/2, EIA, WITH [id number] 09:01:01 Test Item Value Reference Range Interpretation Comments HIV Ag/Ab 4th Gen (test code = Negative Negative 42085-0) [facility]] [id number] 09:01:01 Test Item Value Reference Range Interpretation Comments RPR (test code = 49175-1) Non-Reactive Non-Reactive [facility][] GC/CT by Amp Det (APTIMA)2018-04-10 09:01:01 Test Item Value Reference Range Interpretation Comments Source APTIMA Urine (test code = Source APTIMA) N gonorrhea by Amp Negative Negative The APTIM A assay is a Det (APTIMA) (test target am plification code = 67467-1) nucleic acid probe test utilizingtarget capture for the qualitative detection and differentia tion of ribosomalRNA fr om Neisseria gonorrhoeae to aid in the diagnosis of di sease fromsymptomatic and asymptomatic in dividuals using the [employer] ER System.This ass ay utilizes FDA cleared IVD reagents. Performance juani racteristics havebeen verifi ed by the [facility] with in [facility]The [facility] is authorized unde r the Clinical LaboratoryImpro vement Amendments of 1 988 (CLIA-88) to pe rform high complexity test ing. C trachomatis by Negative Negative The APTIMA assay is a Amp Det (APTIMA) target ampl ification (test code = nucleic acid pr obe test 83108-3) utilizingtarget capture for the qualitative detection and differentia tion of ribosomalRNA fr om Chlamydia trachomatis to aid in the diagnosis of di sease fromsymptomatic and asymptomatic in dividuals using the [employer] ER System.This ass ay utilizes FDA cleared IVD reagents. Performance juani racteristics havebeen verifi ed by the [facility] with in [facility].The [facility] is authorized unde r the Clinical LaboratoryImpro vement Amendments of 1 988 (CLIA-88) to pe rform high complexity test ing. [facility]
[2022-07-25 00:41] LABS: Protime INR 1.06
[2022-07-25 01:23] LABS: ALT/SGPT 20 U/L (12-78); Albumin 3.6 g/dL (3.4-5.0); Alkaline Phosphatase 174 U/L (45-117); BUN Blood Urea Nitrogen 11 mg/dL (7-18); Bicarbonate 28 mmol/L (21-32); Bilirubin Direct 0.1 mg/dL (0-0.2); Bilirubin Total 0.3 mg/dL (0.2-1.0); Glomerular Filtration Rate 77 ml/min (=/>90); Glucose Level 305 mg/dL (74-106); NT PRO-BNP 225 pg/mL (<125); Protein, Total 7.7 g/dL (6.4-8.2); Sodium Level 136 mmol/L (136-145); Troponin High Sensitivity 9.6 pg/mL (<58.9)
[2022-07-25 01:29] LABS: AST/SGOT 28 U/L (15-37); Magnesium 2.5 mg/dL (1.8-2.4); Potassium 4.2 mmol/L (3.5-5.1)
[2022-07-25 01:42] LABS: Anisocytosis SLIGHT; Blood Morphology Comment NOTED (NOT SEEN); Platelet Estimate ADEQ; White Blood Cell Scan OK (OK)
--- NOTE | 2022-07-25 03:12 | ER ---
Nurse's Notes [facility] Name: Marek Anderson Age: 22 yrs Sex: Male : 2000 Arrival Date: 07/25/2022 Time: 00:05 Bed 20 Private MD: Diagnosis: Adverse effect of other narcotics;Hypotension, unspecified;Abuse of other non-psychoactive substances Presentation: 07/25 00:08 Chief complaint: Friend and/or Co-Worker states: "I don't know what happened. He has as6 been drinking twisted tea's and he started having convulsions" pt presents with pallor and lethargy. 00:08 Method Of Arrival: Wheelchair as6 00:09 Chief complaint: Patient was brought in unresponsive in a wheelchair by friends. They tw5 stated " I dont know what happened, but he isn't responding to us." Head was being held up by friends "He was drinking earlier, that is all we know." Patient had a pulse and responded to painful stimuli in lobby. Coronavirus screen: unknown. Ebola Screen: Unable to complete the Ebola screening because:. Initial Sepsis Screen: Does the patient meet any 2 criteria? RR > 20 per min. Altered Mental Status. HR > 90 bpm. Does the patient have a suspected source of infection?. Risk Assessment: Do you want to hurt yourself or someone else? Unable to obtain. Onset of symptoms is unknown. 00:09 Method Of Arrival: Wheelchair tw5 00:09 Acuity: RASHMI 1 tw5 03:25 Risk Assessment: Do you want to hurt yourself or someone else? Patient reports no lg3 desire to harm self or others. Triage Assessment: 00:13 General: Appears ill, Behavior is drowsy, uncooperative. Pain: Denies pain. Derm: Skin tw5 is crocker. 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 - Social history:: Smoking status: unknown Patient uses alcohol, drank "Twisted tea" Patient admits "I took three Percocet". street drugs. - Family history:: not pertinent. Screenin:23 Abuse screen: Denies threats or abuse. Denies injuries from another. Nutritional tw5 screening: No deficits noted. Tuberculosis screening: No symptoms or risk factors identified. Fall Risk None identified. Assessment: 00:09 General: pt states "I'm so cold. get me more blankets" . as6 00:10 General: Appears ill, unkempt, Behavior is drowsy, flat. Derm: Skin is dusky, pale. as6 00:16 General: "are you going to give me Narcan? I took Percocet and bar". as6 00:23 General: Behavior is agitated, anxious, Reports "I want to fucking man, I want to leave tw5 AMA. I am fucking freezing." Patient provided more warm blankets. Neuro:. Respiratory: Airway is patent Trachea midline Respiratory effort is even, unlabored. Derm: Skin is diaphoretic, Skin is pale. 01:28 Reassessment: No changes from previously documented assessment. General: Appears tw5 Behavior is drowsy, flat, uncooperative. Pain: Denies pain. Neuro: Goddard Agitation-Sedation Scale (RASS): -1 Drowsy. Respiratory: Respiratory effort is even, unlabored. 02:18 Reassessment: No changes from previously documented assessment. General: pt quietly tw5 resting at this time . Respiratory: Airway is patent Respiratory effort is even, unlabored. 03:29 General: pt awake and alert. refusing all medical treatment/ interventions at this lg3 time. informed pt of current medical state. pt stated " i don't give a shit. im leaving and i am going to pull out my IV's if someone don't take them out now." pt became combative and uncooperative. notified provider. 03:30 Reassessment: Pt states " I need to go man, I am fixing to beat somebody up." Informed jb4 pt he needs to rest and get back in the bed and not to talk like that, went to get provider to inform him pt wants to go AMA. Pt comes out of the room stating "I am sorry man, I am not mad at you and any of yall. Its just the second time this shit has happened to me man. I just need to go, please take the IV's out." Charge nurse in the room with AMA form. 03:31 General: "I want to go home, I am staying around. Fuck this shit. I ain't going to tw5 ." Patient educated that he shouldn't leave and should wait until his blood pressure is better. " I dont care, I am going to leave, just give me the form.". Vital Signs: 00:09 BP 70 / 50; Pulse 108; Resp 20; Temp 97.5; Pulse Ox 100% ; Weight 68.04 kg; tw5 00:21 BP 114 / 48; Pulse 108; Resp 24; Pulse Ox 97% on R/A; tw5 00:23 BP 37 / 18; Pulse 115; Pulse Ox 100% ; tw5 00:25 BP 74 / 51; Pulse 101; Resp 25 S; Pulse Ox 100% on R/A; tw5 00:35 BP 40 / 14; Pulse 97; Resp 23 S; Pulse Ox 100% on R/A; tw5 00:46 BP 81 / 47; Pulse 104; Resp 23; Pulse Ox 100% on R/A; tw5 01:29 BP 73 / 37; Pulse 102; Resp 20; Pulse Ox 97% on R/A; tw5 02:00 BP 63 / 32; Pulse 96; Resp 16; Pulse Ox 97% on R/A; tw5 02:30 BP 76 / 63; Pulse 94; Resp 15 S; Pulse Ox 96% on R/A; tw5 03:20 BP 80 / 39; Pulse 79; Resp 16 S; Pulse Ox 97% on R/A; lg3 00:23 provider notified 00:35 provider notified 01:29 provider notified ED Course: 00:05 Patient arrived in ED. mw2 00:09 Triage completed. as6 00:09 Inserted saline lock: 18 gauge in right antecubital area, using aseptic technique. as6 Blood collected. 00:09 Bed in low position. Call light in reach. Side rails up X2. Client placed on continuous as6 cardiac and pulse oximetry monitoring. NIBP monitoring applied. Warm blanket given. 00:10 Arm band placed on. as6 00:11 Aram Marquez MD is Attending Physician. juani 00:20 Estiven Birch RN is Primary Nurse. as6 00:29 Troponin High Sensitivity Sent. tw5 00:29 NT PRO-BNP Sent. tw5 00:29 Magnesium Sent. tw5 00:29 PT-INR Sent. tw5 00:41 CBC Smear Scan Sent. tw5 03:09 Oj Esquivel MD is Hospitalizing Provider. juani 03:31 No provider procedures requiring assistance completed. IV discontinued, intact, tw5 bleeding controlled, No redness/swelling at site. Pressure dressing applied, x2. 03:31 Diet: Patient given snack. Patient given juice. tw5 Administered Medications: 00:15 Drug: NS 0.9% 1000 ml Route: IV; Rate: 1 bolus; Site: right antecubital; as6 01:27 Follow up: IV Status: Completed infusion; IV Intake: 1000ml tw5 00:15 Drug: Thiamine 100 mg Route: IV; Rate: bolus; Site: right antecubital; as6 03:15 Follow up: Response: No adverse reaction; IV Status: Completed infusion lg3 00:15 Drug: NARcan (naloxone) 1 mg Route: IVP; Site: right antecubital; as6 03:14 Follow up: Response: No adverse reaction; No change in condition lg3 00:15 Drug: Zofran (Ondansetron) 4 mg Route: IVP; Site: right antecubital; as6 03:14 Follow up: Response: No adverse reaction lg3 00:23 Drug: NS 0.9% 1000 ml Route: IV; Rate: 1 bolus; Site: left antecubital; as6 01:27 Follow up: IV Status: Completed infusion; IV Intake: 1000ml tw5 00:24 Drug: NARcan (naloxone) 1 mg Route: IVP; Site: right antecubital; as6 00:26 Follow up: Response: No adverse reaction; RASS: Agitated (+2) tw5 01:28 Drug: NS 0.9% 1000 ml Route: IV; Rate: 1 bolus; Site: right antecubital; tw5 03:14 Follow up: Response: No adverse reaction; IV Status: Completed infusion; IV Intake: lg3 1000ml 03:14 Drug: NS 0.9% 1000 ml Route: IV; Rate: 1 bolus; Site: right antecubital; lg3 03:15 Follow up: Response: No adverse reaction; IV Status: Completed infusion lg3 03:36 Follow up: IV Status: Completed infusion; IV Intake: 50ml lg3 Medication: 03:31 VIS not applicable for this client. tw Intake: 01:27 IV: 1000ml; Total: 1000ml. tw 01:27 IV: 1000ml; Total: 2000ml. tw5 03:14 IV: 1000ml; Total: 3000ml. lg3 03:36 IV: 50ml; Total: 3050ml. lg3 Outcome: 03:12 Decision to Hospitalize by Provider. juani 03:35 AMA AMA form signed lg3 03:35 Condition: stable 03:36 Patient left the ED. tw 03:55 Patient left the ED. jb4 Signatures: Aram Marquez MD MD cha Bryson, James, RN RN jb4 Tonio Foley 2 Miryam Napier, RN RN lg3 Rosmery Rodriguez tw5 Estiven Birch, RN RN as6 Corrections: (The following items were deleted from the chart) 00:14 00:13 PMHx: Unable to Obtain; 00:14 00:13 PSHx: Unable to Obtain; 00:30 00:08 Acuity: RASHMI 2 as6 as6 00:45 00:26 BP 114 / 48;
--- NOTE | 2022-07-25 03:12 | EDPHYS ---
Physician Documentation [facility] Name: Marek Anderson Age: 22 yrs Sex: Male : 2000 Arrival Date: 07/25/2022 Time: 00:05 Bed 20 Private MD: ED Physician Aram Marquez HPI: 07/25 00:21 This 22 yrs old Male presents to ER via Wheelchair with complaints of juani overdose. 00:21 The patient presents to the emergency department after a known overdose, that was juani accidental. Context: Method: the patient has a confirmed or suspected ingestion. Associated signs and symptoms: The patient has no apparent associated signs or symptoms, Pertinent positives: dizziness, shortness of breath. Severity of symptoms: At their worst the symptoms were moderate in the emergency department the symptoms are unchanged. percocet. The patient presents with confusion, decreased mental status, trouble concentrating. Onset: The symptoms/episode began/occurred just prior to arrival. Possible causes: drug use, alcohol, low blood sugar, seizure, sepsis. Associated signs and symptoms: Pertinent positives: confusion, dizziness, gait abnormality, lightheadedness. Current symptoms: In the emergency department the patient's symptoms have improved, mildly. Historical: - Allergies: 00:13 No Known Allergies; tw5 - Home Meds: 00:13 Unable to obtain [Active]; tw5 - PMHx: 00:13 valve replacement; tw - Immunization history:: Flu vaccine status is unknown. - Social history:: Smoking status: unknown Patient uses alcohol, drank "Twisted tea" Patient admits "I took three Percocet". street drugs. - Family history:: not pertinent. ROS: 00:21 Constitutional: Negative for fever, chills, and weight loss, Eyes: Negative for injury, juani pain, redness, and discharge, ENT: Negative for injury, pain, and discharge, Neck: Negative for injury, pain, and swelling, Cardiovascular: Negative for chest pain, palpitations, and edema, Respiratory: Negative for shortness of breath, cough, wheezing, and pleuritic chest pain, Abdomen/GI: Negative for abdominal pain, nausea, vomiting, diarrhea, and constipation, Back: Negative for injury and pain, : Negative for injury, bleeding, discharge, and swelling, MS/Extremity: Negative for injury and deformity, Psych: Negative for depression, anxiety, suicide ideation, homicidal ideation, and hallucinations, Allergy/Immunology: Negative for hives, rash, and allergies, Endocrine: Negative for neck swelling, polydipsia, polyuria, polyphagia, and marked weight changes, Hematologic/Lymphatic: Negative for swollen nodes, abnormal bleeding, and unusual bruising. 00:21 Skin: Positive for pallor. 00:21 Neuro: Positive for altered mental status, dizziness, gait disturbance, speech changes, weakness. Exam: 00:24 Constitutional: This is a well developed, well nourished patient who is awake, alert, juani and in no acute distress. Head/Face: Normocephalic, atraumatic. Eyes: Pupils equal round and reactive to light, extra-ocular motions intact. Lids and lashes normal. Conjunctiva and sclera are non-icteric and not injected. Cornea within normal limits. Periorbital areas with no swelling, redness, or edema. ENT: Nares patent. No nasal discharge, no septal abnormalities noted. Tympanic membranes are normal and external auditory canals are clear. Oropharynx with no redness, swelling, or masses, exudates, or evidence of obstruction, uvula midline. Mucous membranes moist. Neck: Trachea midline, no thyromegaly or masses palpated, and no cervical lymphadenopathy. Supple, full range of motion without nuchal rigidity, or vertebral point tenderness. No Meningismus. Chest/axilla: Normal chest wall appearance and motion. Nontender with no deformity. No lesions are appreciated. Cardiovascular: Regular rate and rhythm with a normal S1 and S2. No gallops, murmurs, or rubs. Normal PMI, no JVD. No pulse deficits. Respiratory: Lungs have equal breath sounds bilaterally, clear to auscultation and percussion. No rales, rhonchi or wheezes noted. No increased work of breathing, no retractions or nasal flaring. Abdomen/GI: Soft, non-tender, with normal bowel sounds. No distension or tympany. No guarding or rebound. No evidence of tenderness throughout. Back: No spinal tenderness. No costovertebral tenderness. Full range of motion. Male : Normal genitalia with no discharge or lesions. MS/ Extremity: Pulses equal, no cyanosis. Neurovascular intact. Full, normal range of motion. Psych: Awake, alert, with orientation to person, place and time. Behavior, mood, and affect are within normal limits. 00:24 Skin: Appearance: Color: pale, Temperature: normal temperature, Moisture: normal moisture, petechiae, not noted, abscess, not appreciated, cellulitis, is not appreciated, induration, is not appreciated, injury, is not appreciated. Vital Signs: 00:09 BP 70 / 50; Pulse 108; Resp 20; Temp 97.5; Pulse Ox 100% ; Weight 68.04 kg; tw5 00:21 BP 114 / 48; Pulse 108; Resp 24; Pulse Ox 97% on R/A; tw5 00:23 BP 37 / 18; Pulse 115; Pulse Ox 100% ; tw5 00:25 BP 74 / 51; Pulse 101; Resp 25 S; Pulse Ox 100% on R/A; tw5 00:35 BP 40 / 14; Pulse 97; Resp 23 S; Pulse Ox 100% on R/A; tw5 00:46 BP 81 / 47; Pulse 104; Resp 23; Pulse Ox 100% on R/A; tw5 01:29 BP 73 / 37; Pulse 102; Resp 20; Pulse Ox 97% on R/A; tw5 02:00 BP 63 / 32; Pulse 96; Resp 16; Pulse Ox 97% on R/A; tw5 02:30 BP 76 / 63; Pulse 94; Resp 15 S; Pulse Ox 96% on R/A; tw5 03:20 BP 80 / 39; Pulse 79; Resp 16 S; Pulse Ox 97% on R/A; lg3 00:23 provider notified tw5 00:35 provider notified tw5 01:29 provider notified tw5 MDM: 00:11 Patient medically screened. juani 00:26 Differential diagnosis: Ingestion/exposure to percocet polypharmacy, over medication, juani hypoglycemia, closed head injury. Differential Diagnosis altered mental status, sepsis. Differential Diagnosis: electrolyte abnormality, alcohol intoxication, hypoglycemia, intracranial bleed, overdose, pneumonia, sepsis, TIA, UTI, volume depletion. Data reviewed: vital signs, nurses notes, lab test result(s), EKG, radiologic studies, CT scan, MRI. Data interpreted: activity aide: rate is 115 beats/min, rhythm is regular, Pulse oximetry: on room air is 100 %. Test interpretation: by ED physician or midlevel provider: ECG, plain radiologic studies. 07/25 00:09 Order name: Acetaminophen; Complete Time: 01:36 [facility] 07/25 00:09 Order name: Basic Metabolic Panel; Complete Time: 01:36 [facility] 07/25 00:09 Order name: CBC with Diff; Complete Time: 02:12 [facility] 07/25 00:09 Order name: ETOH Level; Complete Time: 01:19 [facility] 07/25 00:09 Order name: Hepatic Function; Complete Time: 01:36 [facility] 07/25 00:09 Order name: PT-INR; Complete Time: 01:19 [facility] 07/25 00:09 Order name: Ptt, Activated; Complete Time: 01:19 [facility] 07/25 00:09 Order name: Salicylate; Complete Time: 01:19 [facility] 07/25 00:09 Order name: Urine Drug Screen [facility] 07/25 00:26 Order name: PT-INR [facility] 07/25 00:09 Order name: EKG; Complete Time: 00:11 [facility] 07/25 00:27 Order name: Troponin High Sensitivity; Complete Time: 01:36 EDMS 07/25 00:27 Order name: NT PRO-BNP; Complete Time: 01:36 EDMS 07/25 00:27 Order name: Magnesium; Complete Time: 01:36 EDMS 07/25 00:40 Order name: CBC Smear Scan; Complete Time: 02:12 EDMS 07/25 03:25 Order name: Urine Dipstick-Ancillary EDMS 07/25 00:09 Order name: EKG - Nurse/Tech; Complete Time: 00:11 [facility] 07/25 00:09 Order name: IV Saline Lock; Complete Time: 00:11 [facility] 07/25 00:09 Order name: Labs collected and sent; Complete Time: 00:11 [facility] 07/25 00:09 Order name: Suicide Screening (Chelan); Complete Time: 03:23 [facility] 07/25 00:09 Order name: Urine Dipstick-Ancillary (obtain specimen); Complete Time: 03:23 [facility] 07/25 00:19 Order name: IV Saline Lock - Large Bore; Complete Time: 00:20 [facility] Administered Medications: 00:15 Drug: NS 0.9% 1000 ml Route: IV; Rate: 1 bolus; Site: right antecubital; as6 01:27 Follow up: IV Status: Completed infusion; IV Intake: 1000ml tw5 00:15 Drug: Thiamine 100 mg Route: IV; Rate: bolus; Site: right antecubital; as6 03:15 Follow up: Response: No adverse reaction; IV Status: Completed infusion lg3 00:15 Drug: NARcan (naloxone) 1 mg Route: IVP; Site: right antecubital; as6 03:14 Follow up: Response: No adverse reaction; No change in condition lg3 00:15 Drug: Zofran (Ondansetron) 4 mg Route: IVP; Site: right antecubital; as6 03:14 Follow up: Response: No adverse reaction lg3 00:23 Drug: NS 0.9% 1000 ml Route: IV; Rate: 1 bolus; Site: left antecubital; as6 01:27 Follow up: IV Status: Completed infusion; IV Intake: 1000ml tw5 00:24 Drug: NARcan (naloxone) 1 mg Route: IVP; Site: right antecubital; as6 00:26 Follow up: Response: No adverse reaction; RASS: Agitated (+2) tw5 01:28 Drug: NS 0.9% 1000 ml Route: IV; Rate: 1 bolus; Site: right antecubital; tw5 03:14 Follow up: Response: No adverse reaction; IV Status: Completed infusion; IV Intake: lg3 1000ml 03:14 Drug: NS 0.9% 1000 ml Route: IV; Rate: 1 bolus; Site: right antecubital; lg3 03:15 Follow up: Response: No adverse reaction; IV Status: Completed infusion lg3 03:36 Follow up: IV Status: Completed infusion; IV Intake: 50ml lg3 Disposition Summary: 07/25/22 03:35 Left Against Medical Advice Location: Home(07/25/22 03:35) tw5 Condition: Serious(07/25/22 03:35) tw5 Diagnosis - Adverse effect of other narcotics(07/25/22 03:35) tw5 - Hypotension, unspecified(07/25/22 03:35) tw5 - Abuse of other non-psychoactive substances(07/25/22 03:35) tw5 Followup: tw5 - With: Private Physician - When: Upon discharge from the Emergency Department - Reason: Re-evaluation by your physician Signatures: Dispatcher [employer] EDID Aram Marquez MD MD cha Gibson, Lacie RN RN 3 Rosmery Rodriguez tw5 Estiven Birch RN RN as6 Autumn Singh PA PA sb3 Corrections: (The following items were deleted from the chart) 00:14 00:13 PMHx: Unable to Obtain; tw tw 00:14 00:13 PSHx: Unable to Obtain; tw tw 00:27 00:21 Troponin High Sensitivity+C.LAB.BRZ ordered. EDMS EDMS 00:27 00:21 PROBNP+C.LAB.BRZ ordered. EDMS EDMS 00:27 00:21 MAGNESIUM+C.LAB.BRZ ordered. EDMS EDMS 00:49 00:11 Chest Single View+RAD.RAD.BRZ ordered. EDMS EDMS 03:33 03:12 Inpatient Admission juani tw5 03:33 03:12 Oj Esquivel juani tw5 03:33 03:12 Intensive Care Unit juani tw5 03:33 03:12 Fair juani tw5 03:33 03:12 new juani tw5 03:33 03:12 have improved juani tw5 03:33 03:12 Standard juani tw5 03:33 03:12 juani tw5 03:33 03:12 Elevated white blood cell count juani tw5 03:33 03:12 Hypotension, unspecified juani tw5 03:33 03:12 Abuse of other non-psychoactive substances juani tw5 03:33 03:12 Adverse effect of other narcotics juani tw5
[2022-07-25 03:24] LABS: Urine Blood Negative (Negative); Urine Glucose Trace (Negative); Urine Protein 1+ (Negative); Urine Specific Gravity 1.025 (1.005-1.030)
[2022-07-25 04:37] LABS: Barbiturates NEGATIVE (NEGATIVE); Benzodiazepines POSITIVE (NEGATIVE); Cocaine POSITIVE (NEGATIVE); METHAMPHETAM NEGATIVE (NEGATIVE); Methadone NEGATIVE (NEGATIVE); Opiates NEGATIVE (NEGATIVE); Phencyclidine NEGATIVE (NEGATIVE); THC Cannibis NEGATIVE (NEGATIVE)
[2022-07-25 07:08] VITALS: TEMP 97.5
[2022-07-25 08:48] VITALS: BP 80/39; O2SAT 97
--- NOTE | 2022-07-25 14:31 | EKG ---
Test Date: 2022-07-25 Test Time: 00:08:52 Supplier Diversity Director: MEASUREMENT RESULTS: Intervals: Rate: 112 CO: 142 QRSD: 86 QT: 350 QTc: 477 [place]: P: 71 CO: 142 QRS: 63 T: 70 INTERPRETIVE STATEMENTS: Sinus tachycardia Possible Left atrial enlargement Septal infarct, age undetermined Lateral infarct, age undetermined Abnormal ECG Compared to ECG 02/21/2022 23:30:19 Sinus rhythm no longer present Prolonged QT interval no longer present Myocardial infarct finding still present Electronically Signed On 07-25-22 14:29:31 CDT by Jori Duran
== END 2022-07-25 03:55 | disposition left against medical advice (07) ==
LOC: ER 00:03
DX: F55.8 Abuse of other non-psychoactive substances (principal); I95.9 Hypotension, unspecified; T40.695A Adverse effect of other narcotics, initial encounter
CPT/HCPCS: 93005; 85025; 80048; 36415; 80320; 83735; 80329 ×2; 85610; 80076; 85730; 81003; 84484; 83880; 80307; J2310; J3411; J7030 ×4; J2405; 96365; 96366; 96375; 99291; 99292

== ENCOUNTER 2022-08-09 02:27 | Emergency (ER) | payer OTHER ==
--- OUTSIDE RECORDS SUMMARY | 2022-08-09 02:43 | XMS REPORT | Continuity of Care Document ---
:2000 Author Organization [facility] t Address [address] [place]. [address] [place] [address] Care Team Providers Name Role Phone Maria A SINCLAIR, Purnima Primary Care Physician Purnima Saha MD Attending Clinician Shyam MENDES, Kylie Attending Clinician Unavailable HUBERT MEJIA Attending Clinician Unavailable Luis Alberto Fonseca MD Attending Clinician Lacey SINCLAIR, Lincoln Dimas Attending Clinician Brown Browne DO Attending Clinician Cori SINCLAIR, Maury Macias Attending Clinician Hubert Mejia MD Attending Clinician Chhaya SINCLAIR, Damien Mejia Attending Clinician Yarelis Agarwal MD Attending Clinician Tee SINCLAIR, Pascual Attending Clinician Carito SINCLAIR, Osmar Cordero Attending Clinician [phone] Siddharth NAVA, Marry Jha Attending Clinician MARRY HESS Attending Clinician Unavailable Harvey SINCLAIR, Cuate Chou Attending Clinician [phone] CARLA BABCOCK Attending Clinician Unavailable Adrián SINCLAIR, Aj Light Attending Clinician Jillian SINCLAIR, Dae Sprague Attending Clinician [phone] Elsa SINCLAIR, Abdelrahman Schwartz Attending Clinician Jose SINCLAIR, Dayanara Lozada Attending Clinician Araceli SINCLAIR, Prince Attending Clinician Gómez SINCLAIR, Jessica Attending Clinician Jem SINCLAIR, Naveen Attending Clinician Thelma SINCLAIR, Nemesio Duval Attending Clinician Anjel SINCLAIR, Susan Attending Clinician Annabella SINCLAIR, Denisse Carter Attending Clinician Rhett SINCLAIR, Roodlfo Min Attending Clinician [phone] Arnold Villafana MD Attending Clinician ARNOLD VILLAFANA Attending Clinician Unavailable Paola SINCLAIR, Candy Attending Clinician Vicente Vazquez MD Attending Clinician Gemma Heredia Attending Clinician Unavailable HUSEYIN CARTER Attending Clinician Unavailable Kang Sierra DO Attending Clinician KANG SIERRA Attending Clinician Unavailable Doctor Unassigned, [place] Attending Clinician Unavailable Pamella Vilchis Attending Clinician PAMELLA AQUINO Attending Clinician Unavailable JULIO FONSECA M.D. Attending Clinician Unavailable HINCKS, KELLY, D.O. Attending Clinician Unavailable BROWNE, SHIWAN Admitting Clinician Unavailable Brown Browne DO Admitting Clinician ABDELRAHMAN BOOKER Admitting Clinician Unavailable Payers Payer Name Policy Type Policy Number Effective Date Expiration Date Verito [employer]ING [employer] [id number] 2021 00:00:00 Problems Condition Condition Condition Status Onset Resolution Last Treating Co mments Source Name Details Category Date Date Treatment Clinician Date H/O H/O Disease Active Overview: Univer s intravenou intravenou 7 Formattin ity of s drug use s drug use 00:00: g of this [place] in in 00 note Medical remission remission might be Br anch different from the original. Formattin g of this note might be different from the original. Patient states he was using multiple drugs including intraveno us drugs for a few years, states he lost track, had a few hospitali zations related to substance abuse. 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 Formattin g of this note might be different from the original. 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[facility] (mitral (mitral [facility] valve valve Medical replacemen replacemen Ce nter t) t) Acute Acute Disease Active [facility] respirator respirator Tee kes y y Medical insufficie insufficie Ce nter ncy ncy Acute Acute Disease Active [facility] blood loss blood loss [facility] anemia anemia [facility] Acute Acute Disease Active [facility] systolic systolic [facility] HF (heart HF (heart Medi rosalba failure) failure) Center Metabolic Metabolic Disease Active [facility] acidosis acidosis [facility] Hypovolemi Hypovolemi Disease Active C HI St c shock c shock [facility] Vasogenic Vasogenic Disease Active [facility] shock shock [facility] Acute Acute Disease Active [facility] bacterial bacterial [place] s endocardit endocardit Me dical is is Center No known No known Disease Unive rs active active ity of problems problems [facility] Screening Screening Problem Active [facility] for STD for STD HL7.CCDAR2 Phys ici (sexually (sexually ans transmitte transmitte d disease) d disease) Allergies, Adverse Reactions, Alerts Allergy Allergy Status Severity Reaction(s) Onset Inactive Treating Comm ents Source Name Type Date Date Clinician NO KNOWN Drug Active Univers ALLERGIE Class ity of S [facility] NO KNOWN Allergy Active [facility] St [facility]IE [facility] Family History Family Member Diagnosis Comments Start Date Stop Date Source Natural father No Known Problem [facility] Natural father Mental illness Method [facility] Natural father Other [facility] Natural mother No Known Problem [facility] Natural mother Depression [facility] Natural brother ADD / [facility] Paternal Other [facility] Paternal Hyperlipidemia [facility] Paternal Hypertension [facility] Paternal [facility] Family member Colon cancer [facility] Family member Prostate cancer Method [facility] Maternal Bipolar disorder Method t [facility] Maternal Depression [facility] Maternal No Known [facility] of [facility] lung cancer Social History Social Habit Start Date Stop Date Quantity Comments Source History SDOH [facility] History of Current smoker University of tobacco use [facility] Exposure to 2022-05-17 2022-05-27 Not sure [facility] SARS-CoV-2 00:00:00 17:42:00 [facility] (event) Branch Alcohol intake 2022-04-19 2022-04-19 Ex-drinker [facility] 00:[facility] 00:[facility]:00 (finding) Medical Center Tobacco use and 2022-02-22 2022-02-[address] [facility] [address] T[facility]es exposure 00:00:00 00:00:00 Medical Center History SDOH 2022-02-22 2022-02-[address] [facility] Med 00:00:00 00:00:[address] Tobacco Comment 2017-05-24 2017-05-24 restarted Worship 00:00:00 00:00:00 05/22/2017 Hospital Alcohol Comment 2017-04-13 2017-04-13 social Worship 00:00:00 00:00:00 [facility] Sex Assigned At [address] [facility] 00:00:00 00:00:00 Medical Center Smoking Status Start Date Stop Date Source Ex-smoker 2022-05-27 00:00:00 2022-05-27 00:00:00 [facility] Current every day 2022-02-22 00:00:[address] [facility] Medical smoker Center Unknown if ever smoked [facility] Medications Ordered Filled Start Stop Current Ordering Indication Dosage Frequency Signature Comments Components Source Medication Medication Date Date Medication? Clinician (SIG) Name Name spironolact Yes [id number] TAKE ONE Methodi one 8-15 (1) st (ALDACTONE) 00:00: TABLET(S) H ospita 25 MG 00 BY MOUTH l tablet ONCE A DAY. spironolact Yes [id number] TAKE ONE Methodi one 8-15 (1) st (ALDACTONE) 00:00: TABLET(S) H ospita 25 MG 00 BY MOUTH l tablet ONCE A DAY. sacubitriL- 2022-0 Yes .5{tbl} 0.5 Uni vers valsartan 7-10 tablet, ity of (ENTRESTO) 15:00: Oral, BID, [place] 24-26 mg 00 First dose Medic al tablet 0.5 on [facility] tablet 05/28/22 at 1000, Until Discontinu ed, Routine
manufacturing team member approving Restricted medication : JACKIEHUBERT Givens dapaglifloz Yes 10mg 10 mg, Univ ers in 05-28 Oral, ity of (FARXIGA) 15:00: DAILY, [place] tablet 10 00 First dose Medi rosalba mg on [place] Branch 05/28/22 at 1000, Until Discontinu ed, Routine
Is this a home medication ? Yes
Has this patient brought their own medication ? No
Danny barboza will dispense the medication from inpatient. Pharmacy will dispense the medication from inpatient.
[facility] is not allowed unless the patient is maintained on this medication at home, and home supply is unavailabl e. Does this order meet the criteria for inpatient ordering? Yes metoprolol Yes 25mg 25 mg, Unive rs succinate 7 Oral, ity of XL (TOPROL 14:00: DAILY, [place] XL) tablet 00 First dose Med ical 25 mg on [facility] 05/28/22 at 0900, Until Discontinu ed, Routine MULTIVIT-NM Yes Take by Uni vers NERALS/FOLI 7-10 mouth. ity of C ACID 12:12: [place] (ADULT 57 Medical MULTIVITAMI Branch N GUMMIES ORAL) dicyclomine 2021- No 10mg Take 10 mg Univers (BENTYL) 10 05-28 0710 by mouth 4 i ty of mg capsule 11:41: 00:00 (four) [place] 18 :00 times Medical daily. Branch apixaban Yes 5mg 5 mg, Univers (ELIQUIS) 7-10 Oral, BID, ity of tablet 5 mg 01:00: First dose [place] 00 on [facility] 05/27/22 at Branch 2000, Until Discontinu ed, Routine
Indicatio ns: Non-Valvul ar Atrial Fibrillati on magnesium 0 2021- No 2g 2 g, IV Univ ers sulfate in 05-27 Piggyback, it y of water 2 15:45: 16:43 Administer [place] as gram/50 mL 00 :00 over 60 Medica l (4 %) Minutes, Branch infusion 2 ONCE, 1 g dose, On 05/27/22 at 1045, Routine spironolact Yes 25mg 25 mg, Univ ers one 05-27 Oral, ity of (ALDACTONE) 15:15: DAILY, [place] tablet 25 00 First dose Medi rosalba mg on Sat [place] 05/27/22 at 1015, Until Discontinu ed, Routine polyethylen Yes 17g 17 g, Unive rs e glycol 05-27 Oral, ity of 3350 powder 14:00: DAILY, [place] 17 g 00 First dose Medical on Sat [place] 05/27/22 at 0900, Until Discontinu ed, Routine sennosides Yes 8.6mg 8.6 mg, Uni vers (SENOKOT) 05-27 Oral, BID, ity of tablet 8.6 01:00: First dose [place] mg 00 on Fri Medical 05/26/22 at Branch 2000, Until Discontinu ed, Routine meropenem No 1000mg 1,000 mg, Univers (MERREM) 05-26 IV ity of 1,000 mg in 01:00: 14:03 [place], [place] NaCl 0.9% 00 :15 Q12H ABX, Medic al (NS) 50 mL First dose [facility] MINI-BAG (after last modificati on) on [...] 1,000 mg in 21:00: 14:03 from 1,110 [place] NaCl 0.9% 00 :15 mg = 15 Medical (NS) 250 mL mg/kg ?74 [facility] VIAL-MATE kg), IV IV Piggyback, piggyback Q12H [...] Sandra 05/25/22 at 1245 sulfur 2021- No [id number] 5mL 5 mL, Univ ers hexafluorid 05-25 Intravenou i ty of e microsphr 15:30: 15:30 s, ONCE, 1 [place] (LUMASON) 00 :00 dose, On Medica l injection 5 Sandra 05/25/22 Br anch mL at 1030, Routine
manufacturing team member approving Restricted medication : KARI LOTT [...] on Sandra Medical for 05/25/22 at Branch [facility] 0716, Until 05/27/22 at 1004, Routine
Dosing based on aPPT testing parameters (refer to continuous heparin drip order).
heparin 2021- No 12U/kg/ 12 Univer s 25,000 [...] Rang e, Dosing and Testing: &nbs p;FOR [place], [facility], AND [facility] ONLY &nbs p; - aPTT < 35: [...] INITIAL BOLUS OR INITIAL INFUSION RATE.
KCL 2021- No IV Univers (POTASSIUM 05-25 Infusion, ity of CHLORIDE) 10:45: 11:45 CONTINUOUS [place] 20 mEq, 00 :16 , Starting Medica l sodium on Sun Branch bicarbonate 05/25/22 at 50 mEq in [...] QD Take 81 mg Meth jabier (ECOTRIN) 05-[address] 81 MG 10:28: daily. Hospita enteric 18 l coated tablet levoFLOXaci 2021- No [id number] 500mg QD Take 1 Methodi n 05-[address] (Levaquin) 00:00: 04:59 (500 mg Hos tori 500 MG 00 :00 total) by l tablet mouth daily for 7 days. levoFLOXaci 2021- No [id number] 500mg QD Take 1 Methodi n 05-04 [...] :00 l tablet gabapentin 2021- No 400mg Q.[id number] Take 400 Methodi (NEURONTIN) 04-[id number] 400 mg 15:45: 00:00 3D mouth 3 Hospita capsule 08 :00 (three) l times a day. 400mg Am, 400mg PM, 800mg at bedtime sacubitriL- 2021-0 2- No Q.5D Take by Me baez valsartan 04-[address] (Entresto) 15:45: 00:00 (two) Hospi ta 24-26 mg 08 :00 times a l tablet per day. tablet dapaglifloz 2021-0 2- No 10mg QD Take 10 mg Methodi in 04-[address] (Farxiga) 15:45: 00:00 daily. Hospi ta 10 mg 08 :00 l tablet apixaban 2021-0 2- No 2.5mg Q.5D Take 2.5 Met hodi (ELIQUIS) 04-[address] 2.5 mg 15:45: 00:00 mouth 2 Hospita tablet 08 :00 (two) l times a day. metoprolol 2021-0 2- No 25mg Q.5D Take 25 mg Methodi succinate 04-[address] XL 15:45: 00:00 (two) Hospita (TOPROL-XL) 08 :00 times a l 25 mg 24 hr day. tablet spironolact 2021-0 2- No 25mg QD Take 25 mg Methodi one 04-[address] (ALDACTONE) 15:45: 00:00 daily. Hos tori 25 MG 08 :00 l tablet gabapentin 2021-0 2021- No 400mg Q.[id number] Take 400 Methodi (NEURONTIN) 04-[id number] 400 mg 15:45: 00:00 3D mouth 3 Hospita capsule 08 :00 (three) l times a day. 400mg Am, 400mg PM, 800mg at bedtime sacubitriL- 2-0 2- No Q.5D Take by Me baez valsartan 04-[address] (Entresto) 15:45: 00:00 (two) Hospi ta 24-26 mg 08 :00 times a l tablet per day. tablet dapaglifloz 2021-0 2- No 10mg QD Take 10 mg Methodi in 04-[address] (Farxiga) 15:45: 00:00 daily. Hospi ta 10 mg 08 :00 l tablet dapaglifloz 2021-0 2022- No 5mg QD Take 5 mg Methodi in 04-[address] (FARXIGA) 5 15:29: 00:00 daily. Hos tori mg tablet 07 :00 l dapaglifloz 2022-0 2022- No 5mg QD Take 5 mg Methodi in 04-[address] () 5 15:29: 00:00 daily. Hos tori mg tablet 07 :00 l gabapentin 2022-0 Yes [id number] Take 400mg Methodi (NEURONTIN) - PO Am, st 400 mg 00:00: 400mg PM, Hospit a capsule 00 800mg at l bedtime. dapaglifloz 2022-0 Yes [id number] 10mg QD Take 1 Methodi in 04-19 tablet ( () 00:00: mg total) Hos tori 10 mg 00 by mouth l tablet daily. metoprolol 2022-0 Yes [id number] 25mg Q.5D Take 1 Methodi succinate - tablet (25 st XL 00:00: mg total) Hospita (TOPROL-XL) 00 by mouth 2 l 25 mg 24 hr (two) tablet times a day. sacubitriL- 202-0 Yes [id number] 1{tbl} Q.5D Take 1 Methodi valsartan - tablet by st ([facility]) 00:00: mouth 2 Hosp ronald 24-26 mg 00 (two) l tablet per times a tablet day. apixaban 202-0 Yes [id number] 2.5mg Q.5D Take 1 Methodi (ELIQUIS) 04-[address] 2.5 mg 00:00: (2.5 mg Hospita tablet 00 total) by l mouth 2 (two) times a day. gabapentin 2022-0 Yes [id number] Take 400mg Methodi (NEURONTIN) - PO Am, st 400 mg 00:00: 400mg PM, Hospit a capsule 00 800mg at l bedtime. dapaglifloz 2022-0 Yes [id number] 10mg QD Take 1 Methodi in 04-19 tablet ( () 00:00: mg total) Hos tori 10 mg 00 by mouth l tablet daily. metoprolol 2022-0 Yes [id number] 25mg Q.5D Take 1 Methodi succinate - tablet (25 st XL 00:00: mg total) Hospita (TOPROL-XL) 00 by mouth 2 l 25 mg 24 hr (two) tablet times a day. sacubitriL- Yes [id number] 1{tbl} Q.5D Take 1 Methodi valsartan 6-[address] (Entresto) 00:00: mouth 2 Hosp ronald 24-26 mg 00 (two) l tablet per times a tablet day. apixaban Yes [id number] 2.5mg Q.5D Take 1 Methodi (ELIQUIS) 04-[address] 2.5 mg 00:00: (2.5 mg Hospita tablet 00 total) by l mouth 2 (two) times a day. spironolact 2021- No [id number] 25mg QD Take 1 Methodi one - 08-15 tablet (25 st (ALDACTONE) 00:00: 00:00 mg total) Hospita 25 MG 00 :00 by mouth l tablet daily. spironolact 2021- No [id number] 25mg QD Take 1 Methodi one 04-19 08-15 tablet (25 st (ALDACTONE) 00:00: 00:00 mg total) Hospita 25 MG 00 :00 by mouth l tablet daily. aspirin 81 0 Yes 81mg Take 81 mg U nivers mg EC 5-13 by mouth. ity of tablet 00:00: [address] spironolact Yes 25mg Take 25 mg Univers one 25 mg 5-13 by mouth. ity o f tablet 00:00: [address] aspirin 81 2021-0 2022- No 81mg QD Take [address] [facility] [facility] MG EC 5-13 05-13 tablet (81 [facility] tablet 00:00: 23:59 mg total) Medic al 00 :00 by mouth Center daily. spironolact 2021-2022- No 25mg QD Take [address] [facility] [facility] one 5-13 05-13 tablet (25 [facility] (ALDACTONE) 00:00: 23:59 mg total) Medical 25 MG 00 :00 by mouth Center tablet daily. aspirin 81 2021-0 2022- No 81mg QD Take [address] MG EC 5-13 05-13 tablet (81 [facility] tablet 00:00: 23:59 mg total) Medic al 00 :00 by mouth Center daily. spironolact 0 2022- No 25mg QD Take [address] [facility] one 5-13 05-13 tablet (25 [facility] (ALDACTONE) 00:00: 23:59 mg total) Medical 25 MG 00 :00 by mouth Center tablet daily. aspirin 81 2021-0 2022- No 81mg QD Take [address] [...] 00 by mouth Center tablet daily. apixaban 2022-0 [...] 00 by mouth Center tablet daily. apixaban 2021-0 Yes 2.5mg Q.5D Take [address] (ELIQUIS) 5-12 tablet [facility] 2.5 mg Tab 00:00: (2.5 mg Medi rosalba tablet 00 total) by Center mouth 2 (two) times daily. sacubitriL- 2021-0 Yes .5{tbl} Q.5D Take 0.[address] valsartan 5-12 tablets by Luke s (Entresto) 00:00: mouth 2 Medi rosalba 24-26 mg 00 (two) Center Tab times daily. dapaglifloz 2021-0 Yes 10mg QD Take [address] in 5-12 tablet (10 [facility] (FARXIGA) 00:00: mg total) Med ical 10 mg 00 by mouth Center tablet daily. apixaban 2021-0 Yes 2.5mg Take 2.5 Univ ers 2.5 mg 5-12 mg by ity of tablet 00:00: mouth. [place] 00 Medical Branch dapaglifloz 2021-0 Yes 1{tbl} Take 1 Un deandre in 10 mg 5-12 tablet by ity of tablet 00:00: mouth [place] 00 daily. Medical Branch sacubitriL- 2021-0 Yes .5{tbl} Take 0.5 Univers valsartan 5-12 tablets by ity of (ENTRESTO) 00:00: mouth 2 [place] 24-26 mg 00 (two) Medical tablet times Branch daily. metoprolol 2021-0 Yes 25mg Take 25 mg U nivers succinate 5-12 by mouth. ity o f XL 25 mg 24 00:00: [place] hr tablet 00 Medical Branch metoprolol 2021-0 2022- No 25mg Q.5D Take [...] Center mouth 2 (two) times daily. gabapentin 2022- No 800mg QD Take [address] (NEURONTIN) 5-12 05-12 tablet [facility] 800 MG 00:00: 23:59 (800 mg Medical tablet 00 :00 total) by Center mouth nightly. metoprolol 2021-2022- No 25mg Q.5D Take [address] succinate 5-12 05-12 tablet (25 [place] (TOPROL-XL) 00:00: 23:59 mg total) Medical 25 MG 24 hr 00 :00 by mouth 2 Ce nter tablet (two) times daily. gabapentin 2021-2022- No 400mg Q.5D Take [address] (NEURONTIN) 5-12 05-12 capsule Luke s 400 MG 00:00: 23:59 (400 mg Medical capsule 00 :00 total) by Center mouth 2 (two) times daily. gabapentin 2021-2022- No 800mg QD Take [address] (NEURONTIN) 5-12 05-12 tablet [facility] 800 MG 00:00: 23:59 (800 mg Medical tablet 00 :00 total) by Center mouth nightly. metoprolol 2022- No 25mg Q.5D Take [address] succinate 5-12 05-12 tablet (25 [place] (TOPROL-XL) 00:00: 23:59 mg total) Medical 25 MG 24 hr 00 :00 by mouth 2 Ce nter tablet (two) times daily. gabapentin 2022- No 400mg Q.5D Take [address] (NEURONTIN) 5-12 05-12 capsule Luke s 400 MG 00:00: 23:59 (400 mg Medical capsule 00 :00 total) by Center mouth 2 (two) times daily. gabapentin 2022- No 800mg QD Take [address] (NEURONTIN) 5-12 05-12 tablet [facility] 800 MG 00:00: 23:59 (800 mg Medical tablet 00 :00 total) by Center mouth nightly. gabapentin 2021- No Take 400mg Univers 400 mg 5-12 07-10 PO Am, ity of capsule 00:00: 00:00 400mg PM, [place] 00 :00 800mg at Medical bedtime. Branch benzocaine- Yes [id number] 1{lozen Take 1 Univers menthoL 8-19 ge} Lozenge by ity of (CEPACOL 00:00: mouth [place] SORE 00 every 4 Medical THROAT, (four) Branch JR,) hours as lozenge needed for Sore throat. benzocaine- 2021- No [id number] 1{lozen Take 1 Univers menthoL 07-07 07-10 [...] 23:11: (four) [place] 03 times Medical daily. [place] dicyclomine 2019-0 Yes 10mg Take 10 mg Univers (BENTYL) 10 8-11 by mouth 4 it y of mg capsule 23:11: (four) [place] 03 times Medical daily. [place] iohexol 2019- No 120mL 120 mL, Unive [...] 1,000 mL 00 :00 IV Medical Infusion, [place] ONCE, 1 dose, 06/29/20 at 1530, BAN docusate 2018-11 Yes [id number] 100mg Take 1 U nivers (COLACE) 1-17 capsule by ity o f 100 mg 00:00: mouth [place] capsule [address] [facility] docusate 2018-11 Yes [id number] 100mg Take 1 U nivers (COLACE) 1-17 capsule by ity o f 100 mg 00:00: mouth [place] capsule 00 daily. [facility] 2018-11 Yes [id number] 100mg Take 1 U nivers (COLACE) 1-17 capsule by ity o f 100 mg 00:00: mouth [place] capsule 00 daily. [facility] 2018-11- No [id number] 100mg Take 1 Univers (COLACE) 1-17 07-10 capsule by ity of 100 mg 00:00: 00:00 mouth [place] capsule 00 :[address] [facility] Centrum Centrum Yes 1 QD TAKE 1 UT Oral Tablet Oral Tablet 5- TABLET Physici 00:00: DAILY. ans 00 Nicorette Nicorette Yes KELLY 1 CHEW 1 [facility] Starter Kit Starter Kit 5-23 HINCKS PIECE Physici 2 MG 2 MG 00:00: D.O. SLOWLY AND ans Mouth/Throa Mouth/Throa 00 INTERMITTE t Gum t Gum NTLY FOR 30 MINUTES. REPEAT EVERY 1-2 HOURS; MAXIMUM OF 24 PIECES/DAY MULTIVIT-NM Yes Take by Uni vers NERALS/FOLI 2-27 mouth. ity of C ACID 03:15: [place] (ADULT 19 [facility] N GUMMIES ORAL) MULTIVIT-NM Yes Take by Uni vers NERALS/FOLI 2-27 mouth. ity of C ACID 03:15: [place] [facility]UM[facility]) MULTIVIT-NM Yes Take by Uni vers NERALS/FOLI 2-27 mouth. ity of C ACID 03:15: [place] (ADULT 19 [facility] N GUMMIES ORAL) ABSORICA 40 Yes [id number] 40mg QD Take 40 mg Methodi mg capsule 6-[address] 00:00: daily. Hospita 00 l ABSORICA 40 2021- [place] [id number] 40mg QD Take 40 mg Methodi mg capsule 6-14 - by mouth st 00:00: 00:00 daily. Hospita 00 :00 l ABSORICA 40 2021- [place] [id number] 40mg QD Take 40 mg Methodi mg [...] Physicia ns 08:31:00 FLUZONE QUAD 2015-10-05 Completed Worship 00:00:00 Hospital FLUZONE QUAD 2015-10-05 Completed Worship 00:00:00 Hospital FLUZONE QUAD 2015-10-05 Completed Worship 00:00:00 Hospital Meningococcal ACWY, 2015-07-09 Completed Metho [...] t 00:00:00 Hospital FLUZONE QUAD 2012-07-10 Completed Worship 00:00:00 Hospital HPV, Unspecified 2012-07-10 Completed Methodis t 00:00:00 Hospital FLUZONE QUAD 2012-07-10 Completed Worship 00:00:00 Hospital HPV, Unspecified 2012-07-10 Completed Methodis t 00:00:00 Hospital FLUZONE QUAD 2012-07-10 Completed Worship 00:00:00 Hospital FLUZONE QUAD 2012-01-09 Completed Worship 00:00:00 Hospital FLUZONE QUAD 2012-01-09 Completed Worship 00:00:00 Hospital FLUZONE QUAD 2012-01-09 Completed Worship 00:00:00 Hospital Hep A, Unspecified 2011-06-22 Completed Method ist 00:00:00 Hospital Meningococcal ACWY, 2011-06-22 Completed Metho dist Unspecified 00:00:00 Hospital Tdap 2011-06-22 Completed Worship 00:00:00 Hospital Hep A, Unspecified 2011-06-22 Completed Method ist 00:00:00 Hospital Meningococcal ACWY, 2011-06-22 Completed Metho dist Unspecified 00:00:00 Hospital Tdap 2011-06-22 Completed Worship 00:00:00 Hospital Hep A, Unspecified 2011-06-22 Completed Method ist 00:00:00 Hospital Meningococcal ACYW, 2011-06-22 Completed Metho dist Unspecified 00:00:00 Hospital Tdap 2011-06-22 Completed Worship 00:00:00 Hospital DTaP, Unspecified 2003-04-[address] 00:00:00 Hospital IPV 2003-04-08 Completed Worship 00:00:00 Hospital MMR 2003-04-08 Completed Worship 00:00:00 Hospital DTaP, Unspecified 2003-04-[address] 00:00:00 Hospital IPV 2003-04-08 Completed Worship 00:00:00 Hospital MMR 2003-04-08 Completed Worship 00:00:00 Hospital DTaP, Unspecified 2003-04-[address] 00:00:00 Hospital IPV 2003-04-08 Completed Worship 00:00:00 Hospital MMR 2003-04-08 Completed Worship 00:00:00 Hospital Hep A, Unspecified 2001-12-10 Completed Method ist 00:00:00 Hospital Hep A, Unspecified 2001-12-10 Completed Method ist 00:00:00 Hospital Hep A, Unspecified 2001-12-10 Completed Method ist 00:00:00 Hospital DTaP, Unspecified 2000-03-[address] 00:00:00 Hospital Hep B, Unspecified 2000-03-28 Completed Method ist 00:00:00 Hospital Hib (PRP-T) 2000-03-28 Completed Worship 00:00:00 Hospital IPV 2000-03-28 Completed Worship 00:00:00 Hospital MMR 2000-03-28 Completed Worship 00:00:00 Hospital Varicella 2000-03-28 Completed Worship 00:00:00 Hospital DTaP, Unspecified 2000-03-[address] 00:00:00 Hospital Hep B, Unspecified 2000-03-28 Completed Method ist 00:00:00 Hospital Hib (PRP-T) 2000-03-28 Completed [facility] 00:00:00 Hospital IPV 2000-03-28 Completed [facility] 00:00:00 Hospital MMR 2000-03-28 Completed [facility] 00:00:00 Hospital Varicella 2000-03-28 Completed [facility] 00:00:00 Hospital DTaP, Unspecified 2000-03-[address] 00:00:00 Hospital Hep B, Unspecified 2000-03-28 Completed Method ist 00:00:00 Hospital Hib (PRP-T) 2000-03-28 Completed [facility] 00:00:00 Hospital IPV 2000-03-28 Completed [facility] 00:00:00 Hospital MMR 2000-03-28 Completed [facility] 00:00:00 Hospital Varicella 2000-03-28 Completed [facility] 00:00:00 Hospital DTaP, Unspecified [address] 00:00:00 Hospital Hib (PRP-T) 1999 Completed Worship 00:00:00 Hospital IPV 1999 Completed Worship 00:00:00 Hospital DTaP, Unspecified [address] 00:00:00 Hospital Hib (PRP-T) 1999 Completed Worship 00:00:00 Hospital IPV 1999 Completed Worship 00:00:00 Hospital DTaP, Unspecified [address] 00:00:00 Hospital Hib (PRP-T) 1999 Completed Worship 00:00:00 Hospital IPV 1999 Completed Worship 00:00:00 Hospital DTP / HiB 1999 Completed Worship 00:00:00 Hospital IPV 1999 Completed Worship 00:00:00 Hospital DTP / HiB 1999 Completed Worship 00:00:00 Hospital IPV 1999 Completed Worship 00:00:00 Hospital DTP / HiB 1999 Completed Worship 00:00:00 Hospital IPV 1999 Completed W[facility] 00:00:00 Hospital Hep B, Unspecified 1999 Completed [...] Comments Source Systolic blood 2022-05-28 109 mm[Hg] [facility] pressure 12:45:00 [facility] Diastolic blood 2022-05-28 63 mm[Hg] [facility] pressure 12:45:00 [facility] Heart rate 2022-05-28 70 /min [facility] 12:45:00 [facility] Body temperature 2022-05-28 36.78 Le [facility] 12:45:00 [facility] Respiratory rate 2022-05-28 20 /min [facility] 12:45:00 [facility] Oxygen saturation 2022-05-28 99 /min [facility] Arterial blood 12:45:00 [facility] by Pulse oximetry [place] Body height 2022-05-27 185.4 cm [facility] 22:43:00 [facility] Body weight 2022-05-27 68.04 kg [facility] 22:43:00 [facility] BMI 2022-05-27 19.79 kg/m2 University 22:43:00 [facility] HEIGHT 2022-04-19 182.9 cm 12:52:00 WEIGHT 2022-04-19 [...] 2021-07-07 131 mm[Hg] [facility] of pressure 19:29:00 [facility] Diastolic blood 2021-07-07 74 mm[Hg] University o f pressure 19:29:00 [facility] Heart rate 2021-07-07 96 /min [facility] of 19:29:00 [facility] Body temperature 2021-07-07 37.44 Le [facility] of 19:29:00 [facility] Respiratory rate 2021-07-07 14 /min University of 19:29:00 [facility] Body weight 2021-07-07 76.658 kg University of 19:29:00 [facility] BMI 2021-07-07 22.30 kg/m2 University of 19:29:00 [facility] Oxygen saturation 2021-07-07 100 /min [facility] in Arterial blood 19:29:00 [facility] by Pulse oximetry Branch Systolic blood 2020-06-29 119 mm[Hg] University of pressure 23:00:00 [facility] Diastolic blood 2020-06-29 76 mm[Hg] University o f pressure 23:00:00 [facility] Heart rate 2020-06-29 52 /min [facility] of 23:00:00 [facility] Body temperature 2020-06-29 37.39 Le Sobieski of 22:54:00 [facility] Respiratory rate 2020-06-29 14 /min University of 22:54:00 [facility] Oxygen saturation 2020-06-29 100 /min [facility] in Arterial blood 22:54:00 [facility] by Pulse oximetry Branch Body height 2020-06-29 185.4 cm University of 20:18:00 [facility] Body weight 2020-06-29 74.844 kg University 20:18:00 [facility] BMI 2020-06-29 21.77 kg/m2 University of 20:18:00 [facility] Systolic blood 2020-06-29 119 mm[Hg] [facility] of pressure 23:00:00 [facility] Diastolic blood 2020-06-29 76 mm[Hg] University o f pressure 23:00:00 [facility] Heart rate 2020-06-29 52 /min University 23:00:00 [facility] Body temperature 2020-06-29 37.39 Le [facility] 22:54:00 [facility] Respiratory rate 2020-06-29 14 /min [facility] 22:54:00 [facility] Oxygen saturation 2020-06-29 100 /min [facility] in Arterial blood 22:54:00 [facility] by Pulse oximetry [place] Body height 2020-06-29 185.4 cm University 20:18:00 [facility] Body weight 2020-06-29 74.844 kg [facility] 20:18:00 [facility] BMI 2020-06-29 21.77 kg/m2 University 20:18:00 [facility] Body height 2022-05-24 185.4 cm [facility] 19:05:00 [facility] Systolic blood 2022-05-15 112 mm[Hg] Worship pressure 15:28:00 [facility] Diastolic blood 2022-05-15 68 mm[Hg] [facility] pressure 15:28:00 [facility] Heart rate 2022-05-15 63 /min Worship 15:28:00 [facility] Body weight 2022-05-15 68.04 kg [facility]orship 15:28:00 [facility] BMI 2022-05-15 19.79 kg/m2 Worship 15:28:00 [facility] Oxygen saturation 2022-05-15 99 /min [facility] in Arterial blood 15:28:00 [facility] by Pulse oximetry Body temperature 2022-04-19 36.72 Le [facility] 19:48:00 [facility] Systolic blood 2022-04-19 106 mm[Hg] [facility] pressure 12:52:00 [facility] Diastolic blood 2022-04-19 59 mm[Hg] [facility] pressure 12:52:00 [facility] Heart rate 2022-04-19 87 /min [facility] 12:52:00 [facility] Respiratory rate 2022-04-19 16 /min [facility]00 [facility] Body height 2022-04-19 182.9 cm [facility] 12[facility] Body weight 2022-04-[address] [facility] 12:52:00 [facility] BMI 2022-04-19 19.67 kg/m2 [facility] 12:52:00 [facility] Oxygen saturation 2022-04-19 100 /min [facility] St Elfego es in Arterial blood 12:52:00 Medical nter by Pulse oximetry Respiratory rate 2022-04-13 20 /min [facility] 22:15:00 Hospital Body temperature 2022-03-30 36.44 Le [facility] 12:00:00 [facility] BP Systolic 2018-04-10 115 mm[Hg] Location: LUE; [facility] 08:10:00 Position: Sitting BP Diastolic 2018-04-10 74 mm[Hg] Location: LUE; [facility] 08:10:00 Position: Sitting Height 2018-04-10 72 [in_us] [facility] 08:10:00 Weight 2018-04-10 158 [lb_av] [facility] 08:10:00 Body Mass Index 2018-04-10 21.43 kg/m2 [facility] Calculated 08:10:00 Temperature 2018-04-10 97.3 [degF] Method: [facility] 08:10:00 Tympanic Heart Rate 2018-04-10 48 /min [facility] 08:10:00 Procedures Procedure Date / Time Performing Source Performed Clinician CBC WITHOUT DIFF 2022-05-27 09:28:00 Shankar Gillis [facility] MAGNESIUM 2022-05-27 09:27:00 Shankar Gillis Sobieski o f [facility] BASIC METABOLIC PANEL (NA, 2022-05-27 09:27:00 Shankar Gillis [facility] K, CL, CO2, GLUCOSE, BUN, Medica l Branch CREATININE, CA) ACTIVATED PARTIAL THRMPLAS 2022-05-27 09:27:00 Tyson Albarado [facility] ACTIVATED PARTIAL THRMPLAS 2022-05-27 01:52:00 Tyson Albarado [facility] ACTIVATED PARTIAL THRMPLAS 2022-05-26 12:30:00 Tyson Albarado [facility] MAGNESIUM 2022-05-26 06:52:00 [facility] BASIC METABOLIC PANEL (NA, 2022-05-26 06:52:00 Denny Bermudez [facility] K, CL, CO2, GLUCOSE, BUN, Medica l Branch CREATININE, CA) CBC WITH DIFF 2022-05-26 06:52:00 [facility] ACTIVATED PARTIAL THRMPLAS 2022-05-26 06:52:00 Tyson Albarado [facility] ACTIVATED PARTIAL THRMPLAS 2022-05-25 18:10:00 Tyson Albarado [facility] TROPONIN I 2022-05-25 16:40:[address] [facility] TRANSTHORACIC ECHO (TTE) 2022-05-25 13:10:00 Valentin West [facility] W/ CONTRAST Medical [facility] XR CHEST 1 2022-05-25 11:48:[address] [facility] AC PANEL 21 + LACTIC ACID 2022-05-25 11:21:00 Valentin West [facility] MRSA / MSSA SCREEN BY PCR, 2022-05-25 11:21:00 Valentin West [facility] LACTATE DEHYDROGENASE 2022-05-25 11:20:00 Valentin West [facility] TROPONIN I 2022-05-25 11:20:00 Brett lydia [facility] PROTHROMBIN TIME / INR 2022-05-25 11:20:00 Valentin West [facility] ACTIVATED PARTIAL THRMPLAS 2022-05-25 11:20:00 Valentin West [facility] [place] INSERT NON-TUNNEL CV CATH 2022-05-25 08:00:12 Luis Alberto Fonseca [facility] XR CHEST 1 VW 2022-05-25 07:55:56 Luis Alberto Fonseca [facility] ACUTE CARE VENOUS BLOOD GAS 2022-05-25 07:05:00 Luis Alberto Fonseca [facility] AC PANEL 20 + LACTIC ACID 2022-05-25 06:12:00 [facility]W 2022-05-25 05:58:29 Luis Alberto Fonseca [facility] CT CERVICAL SPINE WO 2022-05-25 05:52:43 Luis Alberto Fonseca [facility] CONTRAST [facility] CT HEAD WO CONTRAST 2022-05-25 05:52:43 Luis Alberto Fonsecai [facility] BLOOD CULTURE SCREEN 2022-05-25 05:43:00 Luis Alberto Fonseca [facility] CREATINE KINASE 2022-05-25 05:43:00 Luis Alberto Fonseca [facility] LIPASE 2022-05-25 05:43:00 Luis Alberto Fonseca [facility] MAGNESIUM 2022-05-25 05:43:00 Luis Alberto Fonseca [facility] TROPONIN I 2022-05-25 05:43:00 Luis Alberto Fonseca [facility] FREE T4 2022-05-25 05:43:00 Luis Alberto Fonseca [facility] THYROID STIMULATING HORMONE 2022-05-25 05:43:00 Luis Alberto Fonseac [facility] COMP. METABOLIC PANEL 2022-05-25 05:43:00 Luis Alberto Fonseca [facility] ([id number]) [facility] SALICYLATE 2022-05-25 05:43:00 Luis Alberto Fonseca [facility] ETHANOL 2022-05-25 05:43:00 Luis Alberto Fonseca [facility] CBC WITH DIFF 2022-05-25 05:43:00 Luis Alberto Fonseca [facility] PROTHROMBIN TIME / INR 2022-05-25 05:43:00 Luis Alberto Fonseca [facility] ACTIVATED PARTIAL THRMPLAS 2022-05-25 05:43:00 [facility] URINALYSIS 2022-05-25 05:43:00 Luis Alberto Fonseca [facility] URINE CULTURE 2022-05-25 05:43:00 Luis Alberto Fonseca [facility] N-TERMINAL PRO-BNP 2022-05-25 05:43:00 Luis Alberto Fonseca [facility] COVID-19 (ID NOW RAPID 2022-05-25 05:43:00 Luis Alberto Fonseca [facility] TESTING) Medical Branch LAB ONLY COVID 2022-05-25 05:43:00 Luis Alberto Fonseca o f [place] INTERPRETATION Medical Branch URINE DRUG (IMMUNOASSAY) - 2022-05-25 05:43:00 Luis Alberto Fonseca [facility] COMPREHENSIVE DRUG SCREEN Medica l Branch W/O REFLEX HB ECG ROUTINE & RHYTHM 2022-05-25 05:34:19 Luis Alberto Fonseca [facility] STRIP Medical Branch ECG 12-LEAD 2022-05-15 15:40:44 Yarelis Agarwal Ho spital XR CHEST 2 VW 2022-05-05 20:56:18 Purnima Saha Ho spital XR CHEST 1 VW PORTABLE 2022-04-13 20:16:40 Aj Sampson [facility] CBC WITH PLATELET AND 2022-04-13 19:51:00 Aj Sampson [facility] DIFFERENTIAL COMPREHENSIVE METABOLIC 2022-04-13 19:51:00 Aj Sampson [facility] PANEL ESTIMATED GFR 2022-04-13 19:51:00 Aj Sampson spital MANUAL DIFFERENTIAL 2022-04-13 19:51:00 Aj Sampson [facility] ECG ED PRELIMINARY 2022-04-13 19:43:09 Aj Sampson [facility] INTERPRETATION ECG 12-LEAD 2022-04-13 19:23:41 Aj Sampson Ho spital CBC (HEMOGRAM ONLY) 2022-03-30 05:08:00 [facility] BASIC METABOLIC PANEL (7) 2022-03-30 05:08:00 Nalam, [facility] MAGNESIUM 2022-03-30 05:08:00 [facility] ([facility] ONLY) 2022-03-28 06:20:00 Nalam, [facility] BASIC METABOLIC PANEL (7) 2022-03-28 06:20:00 Nalam, [facility] MAGNESIUM 2022-03-28 06:20:00 [facility]alamElisabethDenisseJohn [facility] CBC (HEMOGRAM ONLY) 2022-03-26 04:58:00 [facility] BASIC METABOLIC PANEL (7) 2022-03-26 04:58:00 [facility]al[facility] 2022-03-26 04:58:00 [facility] 2D ECHO W/ DOPPLER 2022-03-24 11:55:24 SimJoe [facility] St [facility] (CW/PW/COLOR) [facility] CBC (HEMOGRAM ONLY) 2022-03-24 05:08:00 [facility] BASIC METABOLIC PANEL (7) 2022-03-24 05:08:00 [facility] MAGNESIUM 2022-03-24 05:08:00 [facility] SARS-COV2/RT-PCR (HS & REF 2022-03-22 12:43:00 [facility] CBC (HEMOGRAM ONLY) 2022-03-22 04:14:00 [facility] BASIC METABOLIC PANEL (7) 2022-03-22 04:14:00 [facility] MAGNESIUM 2022-03-22 04:14:00 [facility] BASIC METABOLIC PANEL (7) 2022-03-20 04:52:00 Nal, [facility] MAGNESIUM 2022-03-20 04:52:00 [facility] CBC (HEMOGRAM ONLY) 2022-03-20 04:52:00 [facility] HEPATIC FUNCTION PANEL 2022-03-19 17:59:00 Rodolfo Delaney [facility] BASIC METABOLIC PANEL (7) 2022-03-19 05:14[facility]00 [facility] 2022-03-19 05:14:00 [facility]alam[facility] BASIC METABOLIC PANEL (7) 2022-03-18 05:46:00 [facility]alam[facility] 2022-03-18 05:46:00 Nalam, Denisse Emma [facility] CBC (HEMOGRAM ONLY) 2022-03-18 05:46:00 [facility]alam[facility] BASIC METABOLIC PANEL (7) 2022-03-17 08:03:00 Nalam, Denisse Emma [facility] MAGNESIUM 2022-03-17 08:03:00 [facility]alam, [facility] BASIC METABOLIC PANEL (7) 2022-03-16 12:50:00 [facility]alam, [facility]UM 2022-03-16 12:50:00 Nalam, [facility] CBC (HEMOGRAM ONLY) 2022-03-16 08:17:00 Nalam, [facility] SARS-COV2/RT-PCR ([facility] & REF 2022-03-15 16:26:00 [facility] BASIC METABOLIC PANEL (7) 2022-03-15 05:11:00 Nalam, [facility]UM 2022-03-15 05:11:00 [facility] BASIC METABOLIC PANEL (7) 2022-03-14 06:54:00 Nalam, [facility] 2022-03-14 06:54:00 Nalam, [facility] CBC (HEMOGRAM ONLY) 2022-03-14 06:54:00 [facility] XR ANKLE 3 VIEWS LEFT 2022-03-13 18:30:00 Rodolfo Delaney [facility] LIMITED 2D ECHOCARDIOGRAM 2022-03-13 08:29:35 Rick Giles CH I [facility] BASIC METABOLIC PANEL (7) 2022-03-13 07:54:00 Nalam [facility] MAGNESIUM 2022-03-13 07:54:00 Nalam, [facility] XR CHEST 1 VIEW PORTABLE / 2022-03-12 04:21:00 [facility] METABOLIC PANEL (7) 2022-03-12 04:13:00 Nalam, [facility] MAGNESIUM 2022-03-12 04:13:00 Nalam, [facility] CBC (HEMOGRAM ONLY) 2022-03-12 04:13:00 [facility], [facility] BASIC METABOLIC PANEL (7) 2022-03-11 11:32:00 Nalam, [facility] MAGNESIUM 2022-03-11 11:32:00 [facility] 1 VIEW PORTABLE / 2022-03-11 04:44:00 [facility]án [facility] 1 VIEW PORTABLE / 2022-03-10 05:47:00 Adrián [facility] BASIC METABOLIC PANEL (7) 2022-03-10 05:39:00 Adrián [facility] CBC W/PLT COUNT & AUTO 2022-03-10 05:39:00 Adrián [facility] MAGNESIUM 2022-03-10 05:39:00 Adrián [facility] HEPATIC FUNCTION PANEL 2022-03-10 05:39:00 Nalam, [facility] CBC W/PLT COUNT & AUTO 2022-03-10 05:39:00 Adrián [facility] BASIC METABOLIC PANEL (7) 2022-03-09 05:02:00 Sampson, [facility] CBC W/PLT COUNT & AUTO 2022-03-09 05:02:00 SampsonVeronica anne [facility] MAGNESIUM 2022-03-09 05:02:[address] [facility] CBC W/PLT COUNT & AUTO 2022-03-09 05:02:00 Veronica Sampson [facility] XR CHEST 1 VIEW PORTABLE / 2022-03-09 04:40:00 [facility]aj [facility] SARS-COV2/RT-PCR ([facility] & REF 2022-03-08 16:55:[address] [facility] XR CHEST 1 VIEW PORTABLE / 2022-03-08 05:15:00 SampsonVeronica anne [facility] BASIC METABOLIC PANEL (7) 2022-03-08 04:55:00 Sampson [facility] CBC W/PLT COUNT & AUTO 2022-03-08 04:55:00 Sampson, [facility] MAG[facility]ESIUM 2022-03-08 04:55:00 Sampson [facility] CBC W/PLT COUNT & AUTO 2022-03-08 04:55:00 Sampson, [facility] BASIC METABOLIC PANEL (7) 2022-03-07 05:28:00 [facility]UM 2022-03-07 05:28:00 Sampson, [facility] HEPATIC FUNCTION PANEL 2022-03-07 05:28:00 Arnold Gray C [facility] CBC W/PLT COUNT & AUTO 2022-03-07 05:27:00 Sampson [facility] CBC W/PLT COUNT & AUTO 2022-03-07 05:27:00 Sampson [facility] XR CHEST 1 VIEW PORTABLE / 2022-03-07 03:58:00 Sampson, [facility] XR CHEST 1 VIEW PORTABLE / 2022-03-06 11:03:00 Denisse W[facility] VANCOMYCIN LEVEL, TROUGH 2022-03-06 08:28:00 Cholo Bustamante [facility] XR CHEST 1 VIEW PORTABLE / 2022-03-06 06:37:00 Sampson, [facility] BASIC METABOLIC PANEL (7) 2022-03-06 05:45:00 Sampson, [facility] CBC W/PLT COUNT & AUTO 2022-03-06 05:45:00 Adrián [facility] MAGNESIUM 2022-03-06 05:45:00 Sampson, [facility] CBC W/PLT COUNT & AUTO 2022-03-06 05:45:00 Sampson, [facility] HC ARTERIAL DOPPLER ARM UNI 2022-03-05 22:00:00 Michoacano Wilson [facility] 2D ECHO W/ DOPPLER 2022-03-05 11:42:39 Laci [facility] (CW/PW/COLOR) [facility] BLOOD GAS, ARTERIAL 2022-03-05 03:50:00 Angelica Montez [facility] CALCIUM, IONIZED 2022-03-05 03:50:00 Naveen Parish [facility] BASIC METABOLIC PANEL (7) 2022-03-05 03:50:00 Sampson, [facility] CBC W/PLT COUNT & AUTO 2022-03-05 03:50:00 Adrián [facility] MAGNESIUM 2022-03-05 03:50:00 Sampson, [facility] PHOSPHORUS 2022-03-05 03:50:[address] [facility] PROTHROMBIN TIME/INR 2022-03-05 03:50:00 Sampson [facility] APTT 2022-03-05 03:50:00 Adrián [facility] HEPATIC FUNCTION PANEL 2022-03-05 03:50:00 Basil [facility] CBC W/PLT COUNT & AUTO 2022-03-05 03:50:[address] [facility] DIFFERENTIAL [facility] XR CHEST 1 VIEW PORTABLE / 2022-03-05 02:01:[address] [facility] BEDSIDE [facility] PREPARE LEUKO-REDUCED RBC 2022-03-04 23:55:00 Minerva Yost [facility] PREPARE LEUKO-REDUCED RBC 2022-03-04 23:54:00 Naveen Parish [facility] ECG 12-LEAD 2022-03-04 06:07:06 Adrián [facility] ECG 12-LEAD 2022-03-04 06:07:06 Unknown, Hl7 [facility] ECG 12-LEAD 2022-03-04 06:07:06 Unknown, Hl7 [facility] BASIC METABOLIC PANEL (7) 2022-03-04 05:58:00 Adrián [facility] MAGNESIUM 2022-03-04 05:58:00 Adrián [facility] PHOSPHORUS 2022-03-04 05:58:00 Adrián [facility] HEPATIC FUNCTION PANEL 2022-03-04 05:58:00 Basil [facility] VANCOMYCIN LEVEL, TROUGH 2022-03-04 05:58:00 Thuy Cruz [facility] BLOOD GAS, ARTERIAL 2022-03-04 05:00:00 Angelica Montez [facility] CALCIUM, IONIZED 2022-03-04 05:00:00 Naveen Parish [facility] CBC W/PLT COUNT & AUTO 2022-03-04 05:00:00 Adrián [facility] PROTHROMBIN TIME/INR 2022-03-04 05:00:00 Adrián [facility] APTT 2022-03-04 05:00:00 Adrián [facility] CBC W/PLT COUNT & AUTO 2022-03-04 05:00:00 Adrián [facility] XR CHEST 1 VIEW PORTABLE / 2022-03-04 01:50:[address] [facility] BEDSIDE [facility] PREPARE PLASMA 2022-03-03 23:56:00 Abdelrahman Booker [facility] CBC W/PLT COUNT & AUTO 2022-03-03 20:18:00 Minerva Yost [facility] CBC W/PLT COUNT & AUTO 2022-03-03 20:18:00 Minerva Yost [facility] POCT-GLUCOSE METER 2022-03-03 18:48:00 [facility] TRAN[facility] LEUKO-REDUCED RED 2022-03-03 17:11:00 Minerva Yost [facility] BLOOD CELLS [facility] POCT-GLUCOSE METER 2022-03-03 13:31:00 Thelma [facility] LACTIC ACID, ARTERIAL 2022-03-03 08:24:00 Naveen Parish [facility] BLOOD GAS, ARTERIAL 2022-03-03 08:24:00 Kris Orona [facility] CBC (HEMOGRAM ONLY) 2022-03-03 08:24:00 Adrián [facility] XR CHEST 1 VIEW PORTABLE / 2022-03-03 08:20:00 Veronica Sampson [facility] BEDSIDE [facility] TRANSFUSE LEUKO-REDUCED RED 2022-03-03 06:10:00 Keyshawn Parish [facility] BASIC METABOLIC PANEL (7) 2022-03-03 04:47:[address] [facility] CBC W/PLT COUNT & AUTO 2022-03-03 04:47:00 Tc [facility] MAGNESIUM 2022-03-03 04:47:00 Tc [facility] PHOSPHORUS 2022-03-03 04:47:00 Tc [facility] PROTHROMBIN TIME/INR 2022-03-03 04:47:[facility] LACT[facility]ID, ARTERIAL 2022-03-03 04:47:00 Jem [facility] TSH/FREE T4 IF INDICATED 2022-03-03 04:47:00 Kris Orona [facility] HEPATIC FUNCTION PANEL 2022-03-03 04:47:00 Adam Gracia [facility] CBC W/PLT COUNT & AUTO 2022-03-03 04:47:00 Tc [facility] (CELLAVISION MANUAL DIFF) 2022-03-03 04:47:[address] [facility] BLOOD GAS, ARTERIAL 2022-03-03 04:40:00 Tc [facility] RRL CRITICAL LABS 2022-03-03 04:40:00 [facility] (ABG,NA,K,H&H,GLUCOSE) Medical C enter SODIUM NA-STAT LAB 2022-03-03 04:40:00 [facility] POTASSIUM-STAT LAB 2022-03-03 04:40:[facility] 2022-03-03 04:40:00 [facility] HGB/HCT (H&H) - STAT LAB 2022-03-03 04:40:00 [facility] CALCIUM, IONIZED 2022-03-03 04:30:00 [facility] RRL CRITICAL LABS 2022-03-03 02:44:00 [facility] (ABG,NA,K,H&H,GLUCOSE) Medical C enter BLOOD GAS, ARTERIAL 2022-03-03 02:44:00 [facility] SODIUM NA-STAT LAB 2022-03-03 02:44:00 [facility] POTASSIUM-STAT LAB 2022-03-03 02:44:00 [facility] GLUCOSE-STAT LAB 2022-03-03 02:44:00 [facility] HGB/HCT (H&H) - STAT LAB 2022-03-03 02:44:00 [facility] XR CHEST 1 VIEW PORTABLE / 2022-03-03 01:06:00 Veronica Sampson [facility] BEDSIDE [facility] APTT 2022-03-03 00:38:00 Angelica Montez [facility] LACTIC ACID, ARTERIAL 2022-03-03 00:37:00 [facility] RRL CRITICAL LABS 2022-03-03 00:37:00 [facility] (ABG,NA,K,H&H,GLUCOSE) Medical C enter BLOOD GAS, ARTERIAL 2022-03-03 00:37:00 [facility] SODIUM NA-STAT LAB 2022-03-03 00:37:00 [facility] POTASSIUM-STAT LAB 2022-03-03 00:37:00 [facility] GLUCOSE-STAT LAB 2022-03-03 00:37:00 Jem [facility] HGB/HCT (H&H) - STAT LAB 2022-03-03 00:37:00 Naveen Parish [facility] ECG 12-LEAD 2022-03-03 00:27:27 Sampson, [facility]AD 2022-03-03 00:27:27 Unknown, H[facility] ECG 12-LEAD 2022-03-03 00:27:27 Unknown, Hl7 [facility] PREPARE RBC 2022-03-02 21:52:00 Abdelrahman Booker [facility] MAGNESIUM 2022-03-02 21:33:00 Adrián [facility] PHOSPHORUS 2022-03-02 21:33:00 Adrián [facility] CBC W/PLT COUNT & AUTO 2022-03-02 21:33:[address] [facility] DIFFERENTIAL [facility] RRL CRITICAL LABS 2022-03-02 21:33:00 [facility] (ABG,NA,K,H&H,GLUCOSE) Medical C enter CALCIUM, IONIZED 2022-03-02 21:33:00 [facility] PROTHROMBIN TIME/INR 2022-03-02 21:33:00 Naveen Parish [facility] APTT 2022-03-02 21:33:00 [facility] FIBRINOGEN 2022-03-02 21:33:00 eJm [facility] OXYGEN SATURATION, MEASURED 2022-03-02 21:33:00 Keyshawn Parish [facility] LACTIC ACID, ARTERIAL 2022-03-02 21:33:00 Jem Naveen [facility] COMPREHENSIVE METABOLIC 2022-03-02 21:33:00 Naveen Parish [facility] BLOOD GAS, ARTERIAL 2022-03-02 21:33:00 Martha Parishreza [facility] SODIUM NA-STAT LAB 2022-03-02 21:33:00 Jem [facility] POTASSIUM-STAT LAB 2022-03-02 21:33:00 [facility] GLUCOSE-STAT LAB 2022-03-02 21:33:00 [facility] HGB/HCT (H&H) - STAT LAB 2022-03-02 21:33:00 [facility] CBC W/PLT COUNT & AUTO 2022-03-02 21:33:00 [facility] (CELLAVISION MANUAL DIFF) 2022-03-02 21:33:00 [facility] XR CHEST 1 VIEW PORTABLE / 2022-03-02 21:29:00 Melissa Parish [facility] POCT-ACT 2022-03-02 20:23:00 [facility] RRL CRITICAL LABS 2022-03-02 20:20:01 [facility] (ABG,NA,K,H&H,GLUCOSE) Medical C enter CALCIUM, IONIZED 2022-03-02 20:20:01 [facility]LOOD G[facility], ARTERIAL 2022-03-02 20:20:01 [facility] SODIUM NA-STAT LAB 2022-03-02 20:20:01 [facility] POTASSIUM-STAT LAB 2022-03-02 20:20:01 [facility] 2022-03-02 20:20:01 [facility] (H&H) - STAT LAB 2022-03-02 20:20:01 PaolaCandy [facility] POCT-ACT 2022-03-02 19:46:00 [facility] RRL CRITICAL LABS 2022-03-02 19:43:48 Dae Walsh [facility] (ABG,NA,K,H&H,GLUCOSE) [facility] enter BLOOD GAS, ARTERIAL 2022-03-02 19:43:48 [facility] SODIUM NA-STAT LAB 2022-03-02 19:43:48 Jillian [facility] POTASSIUM-STAT LAB 2022-03-02 19:43:48 Jillian [facility] GLUCOSE-STAT LAB 2022-03-02 19:43:48 Jillian [facility] HGB/HCT (H&H) - STAT LAB 2022-03-02 19:43:48 Jillian [facility] POCT-ACT 2022-03-02 19:14:00 [facility] LACTIC ACID, VENOUS 2022-03-02 19:09:51 Jillian [facility] BLOOD GAS, VENOUS 2022-03-02 19:09:48 [facility] + SMEAR 2022-03-02 18:54:58 Jillian Dae [facility] (NON-SPUTUM) [facility] ANAEROBIC CULTURE 2022-03-02 18:54:[address] [facility] FUNGUS CULTURE + SMEAR 2022-03-02 18:54:58 Jillian Dae JOLEEN [facility] SURGICALLY OBTAINED CULTURE 2022-03-02 18:54:58 [facility]ian [facility] + GRAM STAIN [facility] [employer] CULTURE + SMEAR 2022-03-02 18:46:44 Dae Walsh [facility] (NON-SPUTUM) [facility] ANAEROBIC CULTURE 2022-03-02 18:46:44 [facility] FUNGUS CULTURE + SMEAR 2022-03-02 18:46:44 Dae Walsh [facility] SURGICALLY OBTAINED CULTURE 2022-03-02 18:46:44 [facility] + GRAM STAIN [facility] TISSUE EXAM 2022-03-02 18:37:00 [facility] POCT-ACT 2022-03-02 18:35:00 Jem [facility] RRL CRITICAL LABS 2022-03-02 18:33:54 [facility] (ABG,NA,K,H&H,GLUCOSE) [facility] enter BLOOD GAS, ARTERIAL 2022-03-02 18:33:54 Jillian [facility] SODIUM NA-STAT LAB 2022-03-02 18:33:54 Jillian [facility] POTASSIUM-STAT LAB 2022-03-02 18:33:54 Jillian [facility] GLUCOSE-STAT LAB 2022-03-02 18:33:54 Jillian [facility] HGB/HCT (H&H) - STAT LAB 2022-03-02 18:33:54 Jillian [facility] LACTIC ACID, VENOUS 2022-03-02 18:27:52 [facility] PO[facility]-ACT 2022-03-02 18:12:00 Jem [facility] RRL CRITICAL LABS 2022-03-02 18:10:27 [facility] (ABG,NA,K,H&H,GLUCOSE) [facility] enter BLOOD GAS, ARTERIAL 2022-03-02 18:10:27 Jillian, [facility] SODIUM NA-STAT LAB 2022-03-02 18:10:27 Jillian, [facility] POTASSIUM-STAT LAB 2022-03-02 18:10:27 [facility] GLU[facility]SE[facility] LAB 2022-03-02 18:10:27 Jillian [facility] HGB/HCT (H&H) - STAT LAB 2022-03-02 18:10:27 [facility] PO[facility]-ACT 2022-03-02 18:01:00 [facility] TRANSFUSE PLASMA 2022-03-02 17:53:00 [facility] ANESTHESIA PACO 2022-03-02 17:48:50 [facility] POCT-ACT 2022-03-02 17:48:00 [facility] RRL CRITICAL LABS 2022-03-02 17:03:45 [facility] (ABG,NA,K,H&H,GLUCOSE) [facility] enter CALCIUM, IONIZED 2022-03-02 17:03:45 [facility] BLOOD GAS, ARTERIAL 2022-03-02 17:03:45 [facility] SODIUM NA-STAT LAB 2022-03-02 17:03:45 [facility] POTASSIUM-STAT LAB 2022-03-02 17:03:45 [facility] GLUCOSE-STAT LAB 2022-03-02 17:03:45 [facility] HGB/HCT (H&H) - STAT LAB 2022-03-02 17:03:45 [facility] ROBOTIC MITRAL VALVE 2022-03-02 15:45:00 Jillian [facility] REPLACEMENT [facility] ROBOTIC MITRAL VALVULOPLASTY 2022-03-02 15:45:00 [facility]ian [facility] PROCEDURE W/ DAVINCI XI 2022-03-02 15:45:00 Jillian [facility] US NECK 2022-03-02 12:25:00 Jewels Babcock [facility] HC ARTERIAL DOPPLER ARM UNI 2022-03-02 12:02:00 Rohit Correassica [facility] APTT 2022-03-02 10:55:00 Ingrid [facility] BLOOD GAS, ARTERIAL 2022-03-02 08:19:00 Ingrid [facility] APTT 2022-03-02 08:19:00 Ingrid [facility] APTT 2022-03-02 06:36:00 Angelica Montez [facility] XR CHEST 1 VIEW PORTABLE / 2022-03-02 06:00:00 Angelica Montez [facility] CT NECK SOFT TISSUE WITH IV 2022-03-02 05:22:00 Sheri Huitron [facility] CONTRAST [facility] CT CHEST WITHOUT IV CONTRAST 2022-03-02 05:22:00 [facility] CALCIUM, IONIZED 2022-03-02 03:56:00 Naveen Parish [facility] CBC W/PLT COUNT & AUTO 2022-03-02 03:56:00 Danielle [facility]The [facility] DIFFERENTIAL [facility] CBC W/PLT COUNT & AUTO 2022-03-02 03:56:00 Tc [facility] BASIC METABOLIC PANEL (7) 2022-03-02 03:55:[address] [facility] MAGNESIUM 2022-03-02 03:55:00 Angelica Montez [facility] PHOSPHORUS 2022-03-02 03:55:00 Montez [facility] BLOOD GAS, ARTERIAL 2022-03-02 03:55:00 [facility] HEPATIC FUNCTION PANEL 2022-03-02 03:55:00 Adam Gracia [facility] TRIGLYCERIDES 2022-03-02 03:55:00 VallabhHope Nina [facility] BLOOD GAS, ARTERIAL 2022-03-02 01:22:00 [facility] XR ABDOMEN / KUB 1 VIEW 2022-03-02 00:45:[address] [facility] XR CHEST 1 VIEW PORTABLE / 2022-03-01 23:22:00 [facility] XR CHEST 1 VIEW PORTABLE / 2022-03-01 22:21:00 Sheri Huitron [facility] TYPE AND SCREEN, AUTOMATED 2022-03-01 20:23:00 Adam Beaver [facility] HEMOGLOBIN A1C 2022-03-01 20:22:00 Adam Beaver [facility] TSH 2022-03-01 20:22:00 Adam Beaver [facility] APTT 2022-03-01 20:16:00 Araceli [facility] SARS-COV2/RT-PCR (HS & REF 2022-03-01 14:13:00 Adam Gracia [facility] LABS) [facility] APTT 2022-03-01 14:12:00 Araceli [facility] APTT 2022-03-01 07:24:00 Araceli [facility] APTT 2022-03-01 05:07:00 Veronica Sampson [facility] HEPATIC FUNCTION PANEL 2022-03-01 05:07:00 Adam Gracia [facility] BASIC METABOLIC PANEL (7) 2022-03-01 05:07:00 Lernotosha Adam [facility] MAGNESIUM 2022-03-01 05:07:00 Lernor Adam [facility] PHOSPHORUS 2022-03-01 05:07:00 Dayronnor Adam [facility] PROTHROMBIN TIME/INR 2022-03-01 05:07:00 DayronnorAdam [facility] CBC W/PLT COUNT & AUTO 2022-03-01 05:07:00 Lernor Adam [facility] CBC W/PLT COUNT & AUTO 2022-03-01 05:07:00 Adam Gracia [facility] (CELLAVISION MANUAL DIFF) 2022-03-01 05:07:00 Adam Gracia CH [facility] APTT 2022-02-28 21:45:00 [facility] APTT 2022-02-28 12:07:00 [facility] PHOSPHATIDYLSERINE ABS (IGG, 2022-02-28 12:02:00 Benny Conklin [facility] IGM) [facility] CBC W/PLT COUNT & AUTO 2022-02-28 05:55:00 Adam Gracia [facility] CBC W/PLT COUNT & AUTO 2022-02-28 05:55:00 Adam Gracia [facility] S [facility] (CELLAVISION MANUAL DIFF) 2022-02-28 05:55:00 Basil Adam [facility] APTT 2022-02-28 05:54:00 Veronica Sampson [facility] HEPATIC FUNCTION PANEL 2022-02-28 05:54:00 Katie Graciachary [facility] S [facility] BASIC METABOLIC PANEL (7) 2022-02-28 05:54:00 LerAdam miranda [facility] MAGNESIUM 2022-02-28 05:54:00 LernoKatie [facility]Health[facility] PHOSPHORUS 2022-02-28 05:54:00 Basil [facility] PROTHROMBIN TIME/INR 2022-02-28 05:54:00 Basil [facility] APTT 2022-02-27 21:01:00 Araceli [facility] APTT 2022-02-27 14:26:00 Araceli [facility] BEDSIDE SPIROMETRY 2022-02-27 14:16:00 [facility] VANCOMYCIN LEVEL, TROUGH 2022-02-27 09:20:00 [facility] 2022-02-27 05:41:00 Veronica Sampson [facility] KARIUS NEXT GENERATION 2022-02-27 05:41:[address] [facility] HEPATIC FUNCTION PANEL 2022-02-27 05:41:00 Basil [facility] BASIC METABOLIC PANEL (7) 2022-02-27 05:41:[address] [facility] MAGNESIUM 2022-02-27 05:41:00 Basil [facility] PHOSPHORUS 2022-02-27 05:41:00 aBsil [facility] PROTHROMBIN TIME/INR 2022-02-27 05:41:00 Basil [facility] CBC W/PLT COUNT & AUTO 2022-02-27 05:41:00 Basil [facility] DIFFERENTIAL [facility] CBC W/PLT COUNT & AUTO 2022-02-27 05:41:00 Basil [facility] (CELLAVISION MANUAL DIFF) 2022-02-27 05:41:[address] [facility] LEGIONELLA PNEUMOPHILA 2022-02-27 05:40:00 GómezJessica [facility] ANTIBODY (IGG) [facility] APTT 2022-02-26 20:48:00 Araceli [facility] CTA AAA AND RUNOFF 2022-02-26 11:45:00 [facility] 2022-02-26 10:18:00 Araceli [facility] FIBRINOGEN 2022-02-26 05:42:00 Lerruth [facility] APTT 2022-02-26 05:42:00 Adrián [facility] HEPATIC FUNCTION PANEL 2022-02-26 05:42:00 Basil [facility] BASIC METABOLIC PANEL (7) 2022-02-26 05:42:[address] [facility] MAGNESIUM 2022-02-26 05:42:00 Basil [facility] PHOSPHORUS 2022-02-26 05:42:00 Basil [facility] PROTHROMBIN TIME/INR 2022-02-26 05:42:00 Basil [facility] CBC W/PLT COUNT & AUTO 2022-02-26 05:42:00 Basil [facility] DIFFERENTIAL [facility] CBC W/PLT COUNT & AUTO 2022-02-26 05:42:00 Basil [facility] (CELLAVISION MANUAL DIFF) 2022-02-26 05:42:[address] [facility] PLATELET COUNT 2022-02-26 00:00:00 Araceli [facility] APTT 2022-02-26 00:00:00 Araceli [facility] APTT 2022-02-25 15:52:00 Araceli [facility] CT BRAIN WITHOUT IV CONTRAST 2022-02-25 14:50:00 Araceli [facility] VANCOMYCIN LEVEL, TROUGH 2022-02-25 11:57:00 Priya Rojas [facility] HC ARTERIAL DOPPLER LEGS BRANDEE 2022-02-25 10:30:00 Basil [facility] FIBRINOGEN 2022-02-25 04:10:00 Dayronnotosha [facility] APTT 2022-02-25 04:10:00 Veronica Sampson [facility] HEPATIC FUNCTION PANEL 2022-02-25 04:10:00 Basil [facility] BASIC METABOLIC PANEL (7) 2022-02-25 04:10:00 Basil [facility] MAGNESIUM 2022-02-25 04:10:00 Basil [facility] PHOSPHORUS 2022-02-25 04:10:00 Basil [facility] PROTHROMBIN TIME/INR 2022-02-25 04:10:00 Basil [facility] CBC W/PLT COUNT & AUTO 2022-02-25 04:10:00 Basil [facility] DIFFERENTIAL [facility] CBC W/PLT COUNT & AUTO 2022-02-25 04:10:00 Basil [facility] DIFFERENTIAL [facility] (CELLAVISION MANUAL DIFF) 2022-02-25 04:10:00 Basil [facility] LACTIC ACID, VENOUS 2022-02-25 00:11:00 Jose [facility] CTA CHEST,ABDOMEN & PELVIS - 2022-02-24 18:10:00 Basil [facility] FOR DISSECTION [facility] LACTIC ACID, VENOUS 2022-02-24 17:15:[address] [facility] FUNGUS CULTURE, BLOOD 2022-02-24 17:14:00 AraceliPrince meredith [facility] (ISOLATOR) [facility] XR CHEST 1 VIEW PORTABLE / 2022-02-24 15:24:00 Veronica Sampson [facility] BEDSIDE [facility] LACTIC ACID, VENOUS 2022-02-24 10:25:00 [facility] FIBRINOGEN 2022-02-24 10:25:00 Basil [facility] HEPATIC FUNCTION PANEL 2022-02-24 10:25:00 Basil [facility] BASIC METABOLIC PANEL (7) 2022-02-24 10:25:[address] [facility] MAGNESIUM 2022-02-24 10:25:00 Basil [facility] PHOSPHORUS 2022-02-24 10:25:00 Basil [facility] PROTHROMBIN TIME/INR 2022-02-24 10:25:00 Basil [facility] CBC W/PLT COUNT & AUTO 2022-02-24 10:25:00 Basil [facility] VANCOMYCIN LEVEL, TROUGH 2022-02-24 10:25:00 Priya Rojas [facility] CREATINE KINASE (CK) 2022-02-24 10:25:00 Dayanara Garcia [facility] CBC W/PLT COUNT & AUTO 2022-02-24 10:25:00 Basil Adam [facility] (CELLAVISION MANUAL DIFF) 2022-02-24 10:25:[address] [facility] TRANSESOPHAGEAL ECHO 2022-02-24 08:45:39 Joe Montemayor [facility] POTASSIUM 2022-02-23 15:35:00 Basil [facility] LACTIC ACID, VENOUS 2022-02-23 15:35:00 [facility] LACTIC ACID, VENOUS 2022-02-23 03:30:00 Basil [facility] CALCIUM, IONIZED 2022-02-23 03:30:00 Basil [facility] HEPATIC FUNCTION PANEL 2022-02-23 03:30:00 Basil [facility] BASIC METABOLIC PANEL (7) 2022-02-23 03:30:[address] [facility] MAGNESIUM 2022-02-23 03:30:00 Basil [facility] PHOSPHORUS 2022-02-23 03:30:00 Basil [facility] PROTHROMBIN TIME/INR 2022-02-23 03:30:00 Basil [facility] FIBRINOGEN 2022-02-23 03:30:00 Basil [facility] CBC W/PLT COUNT & AUTO 2022-02-23 03:30:00 Basil [facility] DIFFERENTIAL [facility] CBC W/PLT COUNT & AUTO 2022-02-23 03:30:00 Basil [facility] (CELLAVISION MANUAL DIFF) 2022-02-23 03:30:[address] [facility] COLOR-FLOW MAPPING 2022-02-23 00:31:21 Joe Montemayor [facility] CONT WAVE PULSED DOPPLER 2022-02-23 00:31:21 Joe Montemayor [facility] LACTIC ACID, VENOUS 2022-02-22 22:26:00 Huseyin Carter [facility] HIGH SENSITIVITY TROPONIN I 2022-02-22 21:46:00 Basil [facility] SARS-COV2/RT-PCR (HS & REF 2022-02-22 17:26:00 [facility] DRUG TEST, GENERAL 2022-02-22 17:21:00 Clive Ortiz [facility] TOXICOLOGY, [facility] HEMOGLOBIN AND HEMATOCRIT 2022-02-22 16:02:[address] [facility] LACTIC ACID, VENOUS 2022-02-22 15:46:00 Baisl [facility] PROCALCITONIN 2022-02-22 15:46:00 Basil [facility] HSV 1/2 PCR, QUALITATIVE 2022-02-22 12:50:00 Rubin Benny [facility] COMPREHENSIVE METABOLIC 2022-02-22 12:50:00 Huseyin Carter [facility] US DOPPLER 2022-02-22 12:37:00 Basil [facility] HEPATITIS C PCR, 2022-02-22 09:50:00 Huseyin Carter [facility] EBV VIRAL LOAD 2022-02-22 09:50:00 Benny Conklin [facility] CMV PCR, QUANTITATIVE 2022-02-22 09:50:00 Rubin [facility] HEPATITIS B PCR, 2022-02-22 09:50:00 Benny Conklin [facility] HEPATITIS C GENOTYPE 2022-02-22 09:48:00 Huseyin Carter [facility] ETHANOL 2022-02-22 09:48:00 Basil [facility] LACTIC ACID, VENOUS 2022-02-22 09:48:00 Basil [facility] ACTIN (SMOOTH MUSCLE) 2022-02-22 09:48:00 Benny Conklin [facility] ANTIBODY, IGG [facility] ANTI-MITOCHONDRIAL AB, 2022-02-22 09:48:00 [facility] TITER [facility] CERULOPLASMIN 2022-02-22 09:48:00 [facility] ABS IGG/IGM EIA 2022-02-22 09:48:00 Rubin [facility] MITOCHONDRIAL AB SCREEN 2022-02-22 09:48:00 Rubin [facility] MITOCHONDRIAL AB TITER 2022-02-22 09:48:00 Rubin [facility] ABORH, MANUAL 2022-02-22 09:48:00 Aundrea Aguilera [facility] 2D ECHO W/ DOPPLER 2022-02-22 09:11:05 Adam Gracia [facility] (CW/PW/COLOR) [facility] US ABDOMEN LIMITED 2022-02-22 04:35:00 MacIndira [facility] VANCOMYCIN LEVEL, TROUGH 2022-02-22 04:12:00 MacMath [facility] BLOOD CULTURE 2022-02-22 03:43:00 MacMath [facility] BLOOD CULTURE 2022-02-22 03:42:00 MacMaandrés [facility] CBC W/PLT COUNT & AUTO 2022-02-22 03:32:[address] [facility] AMMONIA 2022-02-22 03:32:00 MacMaCasa [facility]St[facility] PROTHROMBIN TIME/INR 2022-02-22 03:32:00 MacIndira [facility] APTT 2022-02-22 03:32:00 MacIndira [facility] SALICYLATE LEVEL 2022-02-22 03:32:00 [facility] HIV-1 AG W/HIV-1&2 AB 2022-02-22 03:32:00 MacIndira [facility] RPR 2022-02-22 03:32:00 MacIndira [facility] BASIC METABOLIC PANEL (7) 2022-02-22 03:32:00 Clive Ortiz CH I [facility] HEPATIC FUNCTION PANEL 2022-02-22 03:32:00 MacClive Jacobson [facility] HEPATITIS PANEL, ACUTE 2022-02-22 03:32:00 MacClive Jacobson [facility] HEPATITIS A PANEL 2022-02-22 03:32:[address] [facility] HEPATITIS B SURFACE ANTIBODY 2022-02-22 03:32:00 MacMaClive bowen [facility] HEPATITIS B CORE ANTIBODY, 2022-02-22 03:32:00 Clive Ortiz [facility] LACTIC ACID, VENOUS 2022-02-22 03:32:00 Clive Ortiz [facility] RICKETTSIA AB PANEL WITH 2022-02-22 03:32:00 Clive Ortiz [facility] REFLEX TO TITER [facility] ANTI-NUCLEAR ANTIBODY (GAGE) 2022-02-22 03:32:00 Rubin [facility] EBV ANTIBODY, IGG 2022-02-22 03:32:00 Rubin [facility] CYTOMEGALOVIRUS ANTIBODY, 2022-02-22 03:32:00 Rubin [facility] VITAMIN B12 AND FOLATE 2022-02-22 03:32:00 Basil [facility] IRON, TIBC, % SAT. (WITHOUT 2022-02-22 03:32:00 [facility] FERRITIN) [facility] FERRITIN 2022-02-22 03:32:00 Basil [facility] COMPLEMENT COMPONENT C4 2022-02-22 03:32:00 Rubin [facility] GAGE TITER AND PATTERN 2022-02-22 03:32:00 Rubin [facility] TYPE AND SCREEN, AUTOMATED 2022-02-22 03:32:00 Clive Ortiz [facility] CBC W/PLT COUNT & AUTO 2022-02-22 03:32:00 Clive Ortiz [facility] (CELLAVISION MANUAL DIFF) 2022-02-22 03:32:00 Clive Ortiz CH I [facility] RAPID STREP SCREEN FOR GROUP 2021-07-07 19:32:00 Kang Sierra [facility] CONSENT/REFUSAL FOR 2021-07-07 19:21:22 Doctor Unaluciano [facility] DIAGNOSIS AND TREATMENT [facility] ABDOMEN PELVIS W CONTRAST 2020-06-29 21:42:27 Pamella Aquino [facility] LIPASE 2020-06-29 20:31:00 Pamella Aquino [facility] COMP. METABOLIC PANEL 2020-06-29 20:31:00 Pamella Aquino [facility] ([id number]) [facility] CBC WITH DIFF 2020-06-29 20:31:00 Pamella Aquino [facility] URINALYSIS 2020-06-29 20:31:00 Pamella Aquino [facility] NOTICE OF PRIVACY PRACTICES 2020-06-29 20:08:11 Doctor Yuridia robert [facility] Name [facility] CONSENT/REFUSAL FOR 2020-06-29 20:05:43 Doctor Quin [facility] Trichomonas Culture 2018-04-10 00:00:00 UT P [...] Future Scheduled 2028-04-10 DTAP/TDAP/TD VACCINES CH I [facility] Test 00:00:00 (4 - Td [...] Luke s Test 00:00:00 (procedure) [code = [facility] 23682553] Future Scheduled 2022-10-[address] Test 00:00:00 (procedure) [code = [facility] 54322250] Future Scheduled 2022-10-[address] [facility] Test 00:00:00 (procedure) [code = [facility] 73409641] Future Scheduled 2022-07-20 COVID-19 VACCINE (#1) [facility] Test 18:16:05 [code = COVID-19 VACCINE (#1)] Future Scheduled 2022-07-20 Pneumococcal Vaccine: [facility] Test 18:16:05 Pediatrics (0 to 5 Years) and At-Risk Patients (6 to 64 Years) (1 - PCV) [code = Pneumococcal Vaccine: Pediatrics (0 to 5 Years) and At-Risk Patients (6 to 64 Years) (1 - PCV)] Future Scheduled 2022-07-20 INFLUENZA VACCINE Method [facility] Test 18:16:05 [code = INFLUENZA VACCINE] Future Scheduled 2022-07-20 COVID-19 VACCINE (#1) [facility] Test 18:16:05 [code = COVID-19 VACCINE (#1)] Future Scheduled 2022-07-20 Pneumococcal Vaccine: [facility] Test 18:16:05 Pediatrics (0 to 5 Years) and At-Risk Patients (6 to 64 Years) (1 - PCV) [code = Pneumococcal Vaccine: Pediatrics (0 to 5 Years) and At-Risk Patients (6 to 64 Years) (1 - PCV)] Future Scheduled 2022-07-20 INFLUENZA VACCINE [facility] Test 18:16:05 [code = INFLUENZA VACCINE] [...] (#1)] Future Scheduled COVID-19 VACCINE (1) Met [facility] Test [code = COVID-19 VACCINE (1)] Future Scheduled INFLUENZA VACCINE [facility] Test [code = INFLUENZA VACCINE] Encounters Start End Encounter Admission Attending Care Care Encounter Source Date/Time Date/Time Type Type Clinicians Facility Department ID 2022-07-03 2022-07-03 Refill Maria A, 1.2.840.1 [id number] Methodi 00:00:00 00:00:[address] 3.430.2.7 Hospit a .3.629294 l .8 2022-06-09 2022-06-09 Telephone [facility] [id number] 00:[facility] 00:00:00 [facility] 2022-06-09 2022-06-09 [facility] [id number] 00:[facility]00 00:00:00 [facility] 2022-06-02 2022-06-02 [facility] [id number] 00:00:00 00:00:00 [facility] 2022-06-02 2022-06-02 Telephone [place], [facility] [id number] 00:00:00 00:00:00 [facility] 2022-05-25 2022-05-28 Inpatient X JACKIE, [facility] [id number] Univers 00:29:00 10:45:00 HUBERT [facility]elton [facility] 2022-05-25 2022-05-28 Hospital Luis Alberto Fonseca 1.2.840.1 14 [id number] [facility] 00:29:00 10:45:00 Encounter Lincoln Rahman 350.1.13.10 ity [facility] 4.2.7.2.686 [facility] [id number] [address] [facility] Hubert Mejia 0[address] [facility] 2022-05-24 2022-05-24 Office Chhaya, 1.2.840.1 [id number] Methodi 14:30:00 14:40:00 Visit Damien Mejia 70227.1.[address] 3.430.2.7 Hospit a .3.935877 l .8 2022-05-16 2022-05-16 Telephone Shyam, [facility] [id number] 00:00:00 00:00:00 [facility] 2022-05-16 2022-05-16 Telephone Shyam, [facility] [id number] 00:00:00 00:00:00 [facility] 2022-05-15 2022-05-15 Office [facility], 1.2.840.1 [id number] Methodi 10:00:00 11:45:31 Visit Yarelis 54159.1.[address] 3.430.2.7 Hospit a .3.529611 l .8 2022-05-15 2022-05-15 Telephone Pascual Chacon 1.2.840.1 [id number] Methodi 00:00:00 00:00:[address] 3.430.2.7 Hospit a .3.751188 l .8 2022-05-15 2022-05-15 Travel 1.2.840.1 1.2.468.351 1025 [id number] Methodi 00:00:00 00:00:[address] 3.430.2.7 0.2.7.3.698 Ho spita .3.128347 084.8 l .8 2022-05-08 2022-05-08 Telephone Carito 1.2.840.1 [id number] Methodi 00:00:00 00:00:00 , Osmar 40139.1.[address] [facility] 3.430.2.7 Hosp ronald .3.223476 l .8 2022-05-05 2022-05-05 [facility], 1.2.840.1 [id number] Methodi 15:45:33 23:59:00 Encounter Purnima 56555.1.[address] 3.430.2.7 Hospit a .3.475712 l .8 2022-05-05 2022-05-05 Travel 1.2.840.1 1.2.807.076 [id number] [id number] Methodi 00:00:00 00:00:[address] 3.430.2.7 0.2.7.3.698 Ho spita .3.980247 084.8 l .8 2022-05-04 2022-05-04 Telemedici Maria A, 1.2.840.1 [id number] Methodi 15:40:00 16:00:00 ne Purnima 07423.1.[address] 3.430.2.7 Hospit a .3.633633 l .8 2022-04-19 2022-04-19 Office Maria A, 1.2.840.1 [id number] Methodi 14:20:00 15:51:08 Visit Purnima 16139.1.[address] 3.430.2.7 Hospit a .3.616509 l .8 2022-04-19 2022-04-19 [facility] [id number] 12:30:00 13:00:00 Visit [facility] 2022-04-19 2022-04-19 [facility] [id number] 12:30:00 13:00:00 Visit [facility] 2022-04-19 2022-04-19 Outpatient [facility], [facility] SLE [id number] SLE 12:45:53 12:45:53 [facility] 2022-04-19 2022-04-19 Telephone Harvey, 1.2.840.1 [id number] Methodi 00:00:00 00:00:[address] José Antonio 3.430.2.7 Hospit a .3.825385 l .8 2022-04-19 2022-04-19 Travel 1.2.840.1 1.2.326.613 [id number] Methodi 00:00:00 00:00:[address] 3.430.2.7 0.2.7.3.698 Ho spita .3.668844 084.8 l .8 2022-04-14 2022-04-14 Outpatient ZINA BABCOCK [id number] Zina 09:30:00 09:30:00 CARLA Nyybol d 2022-04-13 2022-04-13 Emergency Sampson, 1.2.840.1 [id number] Methodi 14:22:00 17:25:[address] [place] 3.430.2.7 Hospit a .3.215488 l .8 2022-04-13 2022-04-13 Travel 1.2.840.1 1.2.921.591 [id number] [id number] Methodi 00:00:00 00:00:[address] 3.430.2.7 0.2.7.3.698 Ho spita .3.728187 084.8 l .8 2022-04-04 2022-04-04 Telephone [facility] [id number] 00:00:00 00:00:00 [facility] 2022-04-04 2022-04-04 Telephone [facility] [id number] 00:00:00 00:00:00 [facility] 2022-02-22 2022-03-30 [facility] Abdelrahman Booker [facility] [id number] [facility] 02:27:00 14:30:00 Dayanara Rodríguez, [facility] Jem, Naveen Renee, Nemesio Walsh, [facility], Susan Nalam, Denisse Emma Rhett, Nejmudin Reshad Zacarias, Ahmed Nasif 2022-02-22 2022-03-30 Hospital ER Abdelrahman Booker [facility] [id number] [facility] 02:27:00 14:30:00 Encounter Dayanara [facility], [facility], Naveen Renee, Nemesio Walsh, [facility], Susan Nalam, Denisse Emma Rhett, Nejmudin Reshad Zacarias, Ahmed Nasif 2022-02-22 2022-03-30 Inpatient ER [facility] Surgery [id number] [facility] 02:27:00 14:30:00 AHMED 2022-03-04 2022-03-[address] [facility] [id number] 00:00:00 00:00:[address] [facility] 2022-03-04 2022-03-[address] [facility] [id number] 00:00:00 00:00:[address] [facility] 2022-03-03 2022-03-03 Outpatient [facility] [id number] [address] [place] [address] 11:45:00 23:59:00 Taurus 2022-03-02 2022-03-[address] [facility] [id number] [facility] 15:44:00 21:31:00 Event [facility] 2022-03-02 2022-03-[address] [facility] [id number] [facility] 15:44:00 21:31:00 Event [facility] 2022-03-02 2022-03-[address] [facility] [id number] 11:21:00 18:02:00 [facility] 2022-03-02 2022-03-02 [facility] [id number] 11:21:00 18:02:00 [facility] 2022-03-02 2022-03-[address] [facility] [id number] 06:21:42 06:21:42 Event [facility] 2022-03-02 2022-03-[address] [facility] [id number] 06:21:42 06:21:42 Event Gemma [facility] 2022-02-25 2022-02-25 Outpatient BCM BCM [id number] [facility] 11:45:00 23:59:00 [facility] 2022-02-24 2022-02-24 Outpatient BCM BCM [id number] [facility] 00:00:00 23:59:00 [facility] 2022-02-24 2022-02-[address] [facility] [id number] 08:22:00 09:25:00 Event [facility] 2022-02-24 2022-02-24 Anesthesia [facility] [id number] 08:22:00 09:25:00 Event [facility] 2022-02-22 2022-02-22 Outpatient BCM BCM [id number] [facility] 02:27:00 23:59:00 [facility] 2022-02-22 2022-02-22 Outpatient ZINA CARTER [id number] Zina 00:00:00 00:00:00 HUSEYIN robert 2022-02-22 2022-02-22 Travel [facility] [id number] [facility] 00:00:00 00:00:00 [facility] 2022-02-22 2022-02-22 Travel [facility] [id number] [facility] 00:00:00 00:00:00 [facility] 2021-07-07 2021-07-07 Emergency Singer [facility] 1.2.993.560 [id number] Univers 14:36:00 16:28:00 Kang Kaye 350.1.13.10 i ty of [place] 4.2.7.2.686 [facility] [id number] [place] [id number] Branch 2021-07-07 2021-07-07 Emergency X [facility] ERT [id number] Univers 14:22:00 14:22:00 KANG skelton [facility] 2021-07-07 2021-07-07 Orders Doctor JAYE 1.2.840.114 [id number] Univers 00:00:00 00:00:00 Only Unassigned, BRIAN 350.1.13.10 ity of [facility] 4.2.7.[address] [place] [address] [id number] [facility] 009 Branch 2020-06-29 2020-06-29 Emergency [facility] 1.2.399.053 [id number] Univers 15:20:00 18:23:00 Pamella Tosha Kaye 350.1.13.10 i ty of [place] 4.2.7.2.686 [facility] [id number] [place] [address] Branch 2020-06-29 2020-06-29 Emergency [facility] 1.2.960.323 [id number] 15:20:00 18:23:00 Pamella Kaye 350.1.13.10 [place] 4.2.7.2.686 [place] [id number] [facility] 2020-06-29 2020-06-29 Emergency X [facility] ERT [id number] Univers 15:07:00 15:07:00 PAMELLA nafisa of [facility] 2018-08-06 2018-08-06 Appointmen RAYMUNDO [facility] [id number] [place] 14:00:00 14:00:00 t; JULIO FONSECA Phys ici NILESH, M.D. ans M.D. 2018-06-11 2018-06-11 Appointmartha ESPINOZA [facility] [id number] [place] 08:15:00 08:15:00 t; KELLY ESPINOZA D.O. Physici KERRY, ans D.O. 2018-06-10 2018-06-10 Appointmen RAYMUNDO [facility] [id number] [place] 08:00:00 08:00:00 t; JULIO FONSECA Phys ici NILESH, M.D. ans M.D. 2018-04-10 2018-04-10 Appointmartha ESPINOZA [facility] Carmenza [id number] [place] 08:00:00 08:00:00 t; KELLY ESPINOZA D.O. [facility] molly MENDOZA D.O. Results Test Description Test Time Test Comments Results Result Comments Source MAGNESIUM 2022-05-27 10:48:03 Test Item Value Reference Range Interpretation Comme nts MAGNESIUM (test code = 9014326011) 1.8 mg/dL 1.7-2.4 Lab Interpretation (test code = 51106-3) Normal [facility] METABOLIC PANEL (NA, K, CL, CO2, GLUCOSE, BUN, CREATININE, CA)2022-05-27 10:48:02 Test Item Value Reference Range Interpretation Comments NA (test code = 139 mmol/L 135-145 9245988328) K (test code = 3.9 mmol/L 3.5-5 2854328368) CL (test code = 105 mmol/L 98-108 3585292458) CO2 TOTAL (test code = 28 mmol/L 23-31 1489824095) AGAP (test code = 2-16 7779109362) BUN (test code = 6 mg/dL 7-23 L 0536453301) GLUCOSE (test code = 82 mg/dL 70-110 1966814688) CREATININE (test code = 0.62 mg/dL 0.6-1.25 0813049524) CALCIUM (test code = 9.1 mg/dL 8.6-10.6 4204504956) eGFR (test code = mL/min/1.73m2 4923754065) TOR (test code = TOR) Association of [...] tests). Lab Interpretation Abnormal (test code = 63451-2) [facility]2022-05-27 10:06:40 Test Item Value Reference Range Interpretation Comments APTT Patient (test code See_Comment H [Au tomated message] = 3173-2) The system [employer] generated this result transmitted ref erence range: 26 - 36 Seconds. The reference range was not used to int erpret this result as normal/abnormal . Lab Interpretation (test Abnormal code = 13656-8) [facility] [id number] 09:49:15 Test Item Value Reference Range Interpretation Comments WBC (test code = 6690-2) See_Comment [A utomated message] The system [employer] generated this result transmit zach reference range : 4.20 - 10.70 10*3/?L. The reference range was not used to interpret this result as normal/abnormal . RBC (test code = 789-8) See_Comment [Au tomated message] The system [employer] generated this result transmit zach reference range [...] 777-3) See_Comment [Au tomated message] The system [employer] generated this result transmit zach reference range : 150 - 328 10*3/?L. The reference range was not used to interpret this result as normal/abnormal . MPV (test code = 8.9 fL 9.8-13 L 21790-0) RDW-CV (test code = 17.7 % 12.1-15.4 H 788-0) RDW-SD (test code = 50.4 fL 38.5-51.6 59363-4) NRBC x10^3 (test code = See_Comment [Au tomated message] 7529475563) The system [employer] generated this result transmit zach reference range : 10*3/?L. The reference range was not used to interpret this result as normal/abnormal . NRBC/100 WBC (test code See_Comment [Au tomated message] = 7579174495) The system [employer] generated this result transmit zach reference range : 0.0 - 10.0 /100 WBC s. The reference r yo was not used to interpret this result as normal/abnormal . IPF % (test code = 3743843726) Lab Interpretation (test Abnormal code = 58473-2) [facility] (for use with Heparin Infusion)2022-05-27 02:22:26 Test Item Value Reference Range Interpretation Comments APTT Patient (test code See_Comment H [Au tomated message] = 3173-2) The system [employer] generated this result transmitted ref erence range: 26 - 36 Seconds. The reference range was not used to int erpret this result as normal/abnormal . Lab Interpretation (test Abnormal code = 19238-3) [facility] (for use with Heparin Infusion)2022-05-26 12:45:43 Test Item Value Reference Range Interpretation Comments APTT Patient (test code See_Comment H [Au tomated message] = 3173-2) The system [employer] generated this result transmitted ref erence range: 26 - 36 Seconds. The reference range was not used to int erpret this result as normal/abnormal . Lab Interpretation (test Abnormal code = 02146-4) [facility] METABOLIC PANEL (NA, K, CL, CO2, GLUCOSE, BUN, CREATININE, CA)2022-05-26 07:46:47 Test Item Value Reference Range Interpretation Comments NA (test code = 137 mmol/L 135-145 6687764895) K (test code = 3.5 mmol/L 3.5-5 2715137324) CL (test code = 103 mmol/L 98-108 5582368140) CO2 TOTAL (test code = 30 mmol/L 23-31 1730463211) AGAP (test code = 2-16 9673658239) BUN (test code = 10 mg/dL 7-23 4003708139) GLUCOSE (test code = 121 mg/dL 70-110 H 2664677901) CREATININE (test code = 0.73 mg/dL 0.6-1.25 0721545419) CALCIUM (test code = 8.3 mg/dL 8.6-10.6 L 7284832678) eGFR (test code = mL/min/1.73m2 6147585529) TOR (test code = TOR) Association of [...] tests). Lab Interpretation Abnormal (test code = 41463-0) [facility] 07:46:47 Test Item Value Reference Range Interpretation Comments MAGNESIUM (test code = 3638909987) 1.9 mg/dL 1.7-2.4 Lab Interpretation (test code = Normal 06875-3) [facility]2022-05-26 07:27:48 Test Item Value Reference Range Interpretation Comments APTT Patient (test code See_Comment H [Au tomated message] = 0723-2) The system [employer] generated this result transmitted ref erence range: 26 - 36 Seconds. The reference range was not used to int erpret this result as normal/abnormal . Lab Interpretation (test Abnormal code = 35033-0) [facility] [id number] 07:16:47 Test Item Value Reference Range Interpretation Comments WBC (test code = See_Comment [Automated 7390-2) message] The sy stem which generated this result transmitted reference range : 4.20 - 10.70 10*3/?L. The reference range was not used to interpret this result as normal/abnormal . RBC (test code = See_Comment [Automated 549-8) message] The sy stem which generated this [...] RDW-SD (test code = 50.2 fL 38.5-51.6 76910-2) RDW-CV (test code = 17.3 % 12.1-15.4 H 788-0) PLT (test code = See_Comment [Automated 777-3) message] The sy stem which generated this result transmitted reference range : 150 - 328 10*3/ ?L. The reference r yo was not used to interpret this result as normal/abnormal . MPV (test code = 8.8 fL 9.8-13 L 42684-9) NRBC/100 WBC (test See_Comment [Automat ed code = 1672860129) message] The system which generated this result transmitted reference range : 0.0 - 10.0 /100 WBCs. The refer ence range was not u sed to interpret th is result as normal/abnormal . NRBC x10^3 (test code See_Comment [Auto mated = 3381158658) message] The s ystem which generated this result transmitted reference range : 10*3/?L. The reference range was not used to interpret this result as normal/abnormal . GRAN MAT (NEUT) % 34.4 % (test code = 770-8) IMM GRAN % (test code 0.30 % = 2436992482) LYMPH % (test code = 50.3 % 736-9) MONO % (test code = 9.4 % 5905-5) EOS % (test code = 5.1 % 713-8) BASO % (test code = 0.5 % 706-2) GRAN MAT x10^3(ANC) 2.65 10*3/uL 1.99-6.95 (test code = 5689681445) IMM GRAN x10^3 (test 0-0.06 code = 3921942836) LYMPH x10^3 (test code 3.87 10*3/uL 1.09-3.23 H = 731-0) MONO x10^3 (test code 0.72 10*3/uL 0.36-1.02 = 742-7) EOS x10^3 (test code = 0.39 10*3/uL 0.06-0.53 711-2) BASO x10^3 (test code 0.04 10*3/uL 0.01-0.09 = 704-7) Lab Interpretation Abnormal (test code = 89729-6) [facility]2022-05-25 18:56:58 Test Item Value Reference Range Interpretation Comments APTT Patient (test code See_Comment H [Au tomated message] = 5913-2) The system [employer] generated this result transmitted ref erence range: 26 - 36 Seconds. The reference range was not used to int erpret this result as normal/abnormal . Lab Interpretation (test Abnormal code = 98996-7) [facility]2022-05-25 17:29:20 Test Item Value Reference Range Interpretation Comments Height (test code = in 1541751957) Weight (test code = lbs 7296479764) Systolic BP (test code mmHg = 7404295537) Diastolic BP (test mmHg code = 3957812266) Heart Rate (test code bpm = 6142683604) LVOT stroke volume 52.70 cm3 (test code = 6967032197) EF(Teich) (test code = 48.50 % 5935056501) LVIDD (test code = 4.30 cm 8058208389) LVIDS (test code = 3.30 cm 3091289767) IVS (test code = 1.11 cm 9512906984) LVPWD (test code = 1.12 cm 2506370033) LVOT diameter (test 1.91 cm code = 0489796747) FS (test code = 24 % 2000372886) MV Peak E Elena (test 144.8 cm/s code = 6104632142) MV Peak A Elena (test 120.0 cm/s code = 5650494677) E/A ratio (test code = ratio 2201720657) E wave decelartion 0.31 s time (test code = 1308829579) LA volume (BP) (test 44.7 mL code = 2673288006) LVOT peak elena (test 110.1 cm/s code = 8414759377) LVOT mn grad (test mmHg code = 8454334733) LA size (test code = 3.1 cm 0628552222) LAV(MOD-sp2) (test 46.60 mL code = 8276585825) LAV(MOD-sp4) (test 37.90 mL code = 4416707030) Tapse (test code = 1.60 cm 5073731887) Aortic valve mean Invalid cm/s velocity (test code = 1920235761) Ao peak elena (test code 112.5 cm/s = 4468584181) Ao VTI (test code = Invalid cm 8479077958) AV LVOT peak gradient mmHg (test code = 0429534552) LVOT peak VTI (test 18.3 cm code = 0465918980) AV area peak elena (test 2.8 cm2 code = 9381205842) LV V1 mean (test code 73.20 cm/s = 5474784110) Ao max PG (test code = 5.10 mm[Hg] 8053893427) MV Prop V (test code = 58.30 cm/s 9579594399) TR Peak Elena (test code 206.1 cm/s = 4583615858) Triscuspid Valve mmHg Regurgitation Peak Gradient (test code = 2500105739) Ao root annulus (test 3.4 cm code = 5106654524) Ao root diam (test 3.40 cm code = 2126755559) AV peak gradient (test mmHg code = 5924559188) AV mean gradient (test Invalid mmHg code = 4404710004) Aortic root (test code 3.4 cm = 7260163445) PW (test code = 1.12 cm 0.6-1.6 5222041470) EF - 2D (test code = 48.50 % 13270134) Interventricular 1.11 cm Septum Diastolic Thickness by 2D (test code = 9877895) LA Volume Index (BP) 22.7 mL/m2 (test code = 6715832173) BSA (test code = 1.97 m2 1831951737) MV mean gradient (test mmHg code = 5203451112) MV valve area by 1.40 cm2 continuity eq (test code = 7321425868) MV VTI (test code = 37.6 cm 1242157762) MV V2 mean (test code 107.90 cm/s = 2368846842) MV peak gradient (test mmHg code = 1766628099) MV pk elena (test code = 156.9 cm/s 6469788832) LV Diastolic Volume 110.2 mL (BP) (test code = 6337493616) EF(MOD-bp) (test code 43.90 % = 6839700872) LV Systolic Volume 61.8 mL (BP) (test code = 0632305846) SV(MOD-bp) (test code 48.40 mL = 8913566128) EF (test code = 44 % 3011463204) Left Ventricular 48.4 mL Stroke Volume by 2-D Biplane-MOD (test code = 2458191) Radiology Study observation (narrative) (test code = 44317-1) TOR (test code = TOR) ?Left?Ventricle: Left [...] were obtained. Lumason ultrasound enhancing agent used. [facility] [id number] 17:23:52 Test Item Value Reference Interpretation Comments Range TROPONIN I (test 0.139 ng/mL See_Comment H [Automated code = 3979313183) message] The system which generated this result [...] biotin. Lab Interpretation Abnormal (test code = 74945-9) [facility] [id number] 12:28:52 Test Item Value Reference Interpretation Comments Range TROPONIN I (test 0.175 ng/mL See_Comment H [Automated code = [id number]) message] The system which generated this result [...] biotin. Lab Interpretation Abnormal (test code = 80452-0) [id number] 12:11:11 Test Item Value Reference Range Interpretation Comments LDH (test code = 8009612921) 224 U/L 120-246 Lab Interpretation (test code = Normal 39413-9) [facility] / [id number] 12:05:30 Test Item Value Reference Range Interpretation Comments PROTIME PATIENT (test See_Comment H [Auto mated message] code = 5964-2) The system [employer] generated this result transmitted ref erence range: 10.1 - 1 2.6 Seconds. The reference range was not used to int erpret this result as normal/abnormal . INR (test code = 6301-6) Nor mal INR <1.1; Warfarin Therap eutic range 2.0 to 3. 0 or 2.5 to 3.5, dep ending upon the indica tions. Lab Interpretation (test Abnormal code = 18442-4) [facility] [id number] 12:05:30 Test Item Value Reference Range Interpretation Comments APTT Patient (test code = See_Comment [ Automated message] 3173-2) The system [employer] generated this result transmitted ref erence range: 26 - 36 Seconds. The re ference range was not u sed to interpret this result as normal/abnor mal. Lab Interpretation (test Normal code = 48164-1) [facility] + LACTIC [id number] 11:30:40 Test Item Value Reference Range Interpretation Comments PH (test code = 7.32-7.42 4688160022) PCO2 TAL (test code = See_Comment [Auto mated 8414572264) message] The sy stem which generated this result transmitted reference range : 41 - 51 mmHg. The reference range was not used to interpret this result as normal/abnormal . PO2 TAL (test code = See_Comment [Autom ated 1122224516) message] The sy stem which generated this result transmitted reference range : 25 - 40 mmHg. The reference range was not used to interpret this result as normal/abnormal . HCO3 TAL (test code = See_Comment [Auto mated 2117771042) message] The sy stem which generated this result transmitted reference range : 24 - 28 mEq/L. The reference range was not used to interpret this result as normal/abnormal . AC VBE(BEAKER) (test mEq/L code = 4738444840) THB TAL (test code = 13.7 g/dL 13.5-18 1494581137) %O2HB TAL (test code = 68.9 % 52-63 H 1660913384) %COHB TAL (test code = 1.2 % 0-1.5 0800887958) %METHB TAL (test code = 0.1 % 0.4-1.5 L 9537772685) VOL%O2 TAL (test code = 13.2 % 6-12 H 9306606349) NA (test code = 135 mmol/L 135-145 7215683954) K+ (test code = 4.4 mmol/L 3.5-5 8760622965) AC CA IONZ (test code = 4.60 mg/dL 4.5-5.3 1585239038) GLUCOSE (test code = 91 mg/dL 70-110 7904722671) LACTIC ACID (test code 1.73 mmol/L 0.5-2.2 = 5957853390) Lab Interpretation Abnormal (test code = 94878-1) [facility] 10:25:21 SALICYLATE<10mg/L05/25/2022 5:25 AM [facility]ATORYTherapeutic Range: ? Analgesic and Antipyretic Use ? 20- 100 mg/L ? ? Anti-Inflammatory Use ? 100-250 mg/L Toxic Range: ? Greater than 300 mg/LUnWoodland Heights Medical CenterFREE [id number] 09:06:27 Test Item Value Reference Range Interpretation Comments FREE T4 (test code = See_Comment [Autom ated message] 5189530545) The system [employer] generated this result transmitted ref erence range: 0.78 - 2 .20 ng/dL:. The ref erence range was not u sed to interpret this result as normal/abnor mal. Lab Interpretation (test Normal code = 48364-2) [facility] CenterCREATINE [id number] 08:48:48 Test Item Value Reference Range Interpretation Comments CK (test code = 3751007991) 128 U/L 33-194 Lab Interpretation (test code = Normal 17189-1) [facility] CenterTHYROID STIMULATING [id number] 06:48:55 Test Item Value Reference Range Interpretation Comments TSH (test code = See_Comment [Automated message] 3939742588) The system [employer] generated this result transmitted ref erence range: 0.45 - 4 .70 mIU/L. The refe rence range was not u sed to interpret this result as normal/abnor mal. Lab Interpretation (test Normal code = 58426-6) [facility] WITH [id number] 06:33:20 Test Item Value Reference Range Interpretation Comments WBC (test code = See_Comment H [Automated 9490-2) message] The system which generated this result transmit zach reference range : 4.20 - 10.70 10*3/?L. The reference range was not used to interpret this result as normal/abnormal . RBC (test code = See_Comment [Automated 916-8) message] The system which generated this result [...] (test code = 55.2 fL 38.5-51.6 H 45372-4) RDW-CV (test code = 18.0 % 12.1-15.4 H 788-0) PLT (test code = See_Comment H [Automated 777-3) message] The system which generated this result transmit zach reference range : 150 - 328 10*3/ ?L. The reference range was not u sed to interpret th is result as normal/abnormal . MPV (test code = 8.8 fL 9.8-13 L 10020-4) NRBC/100 WBC (test See_Comment [Automat ed code = 1940497581) message] The system which generated this result transmit zach reference range : 0.0 - 10.0 /100 WBCs. The reference range was not used to interpret this result as normal/abnormal . NRBC x10^3 (test code See_Comment [Auto mated = 4296035503) message] The system which generated this result transmit zach reference range : 10*3/?L. The reference range was not used to interpret this result as normal/abnormal . GRAN MAT (NEUT) % 64.9 % (test code = 770-8) IMM GRAN % (test code 1.00 % = 0957608868) LYMPH % (test code = 25.2 % 736-9) MONO % (test code = 6.9 % 5905-5) EOS % (test code = 1.6 % 713-8) BASO % (test code = 0.4 % 706-2) GRAN MAT x10^3(ANC) 12.45 10*3/uL 1.99-6.95 H (test code = 5976938348) IMM GRAN x10^3 (test 0.19 10*3/uL 0-0.06 H code = 6445101506) LYMPH x10^3 (test code 4.83 10*3/uL 1.09-3.23 H = 731-0) MONO x10^3 (test code 1.32 10*3/uL 0.36-1.02 H = 742-7) EOS x10^3 (test code = 0.31 10*3/uL 0.06-0.53 711-2) BASO x10^3 (test code 0.08 10*3/uL 0.01-0.09 = 704-7) BANDS (test code = Increased A 1078807609) REACT LYMPHS (test Rare code = 8039456688) Lab Interpretation Abnormal (test code = 73243-5) [facility] CenterTROPONIN [id number] 06:30:28 Test Item Value Reference Interpretation Comments Range TROPONIN I (test 0.069 ng/mL See_Comment H [Automated code = 3380958203) message] The system which generated this result [...] biotin. Lab Interpretation Abnormal (test code = 65865-8) [facility] CenterN-TERMINAL [id number] 06:27:33 Test Item Value Reference Range Interpretation Comments NT-proBNP (test code 890 pg/mL See_Comment H [Autom ated = 4113023400) message] The system which generated this result transmitted reference range : <=125. The reference range was not used to interpret this result as normal/abnormal . TOR (test code = TOR) Biotin has been reported to cause a negative bias, interpret results relative to patient's use of biotin. Lab Interpretation Abnormal (test code = 62366-5) [facility] CenterETHANOL2022-07-07 06:22:52 ALCOHOL<10mg/dL05/25/2022 1:22 AM [facility]<10 Cnxvmqww09-715 Toxic>100 Depression of SENIOR TECHNOLOGIST>400 Fatalities ReportedUnWoodland Heights Medical CenterACETAMINOPHEN2022-07-07 06:22:41 Test Item Value Reference Range Interpretation Comments ACETAMINOP (test code = 10-30 L 8488131277) TOR (test code = TOR) Toxic: Greater than 200 ug/mL @ 4 hour post ingestion or greater than 50 ug/mL @ 12 hour post ingestion Lab Interpretation (test Abnormal code = 09393-5) [facility] CenterMAGNESIUM2022-07-07 06:18:50 Test Item Value Reference Range Interpretation Comments MAGNESIUM (test code = 7650389973) 2.9 mg/dL 1.7-2.4 H Lab Interpretation (test code = Abnormal 01572-4) [facility] CenterCOMP. METABOLIC PANEL (11058)2022-05-25 06:18:49 Test Item Value Reference Range Interpretation Comments NA (test code = 136 mmol/L 135-145 2245440033) K (test code = 4.7 mmol/L 3.5-5 5025815870) CL (test code = 95 mmol/L 98-108 L 3831471080) CO2 TOTAL (test code = 23 mmol/L 23-31 5511288110) AGAP (test code = 2-16 H 8073728817) BUN (test code = 12 mg/dL 7-23 5636220426) GLUCOSE (test code = 174 mg/dL 70-110 H 7424403053) CREATININE (test code = 1.35 mg/dL 0.6-1.25 H 0490503697) TOTAL BILI (test code = 0.4 mg/dL 0.1-1.9 4865023746) CALCIUM (test code = 9.8 mg/dL 8.6-10.6 2015096951) T PROTEIN (test code = 8.0 g/dL 6.3-8.2 0310371753) ALBUMIN (test code = 5.4 g/dL 3.5-5 H 0308242278) ALK PHOS (test code = 101 U/L 34-122 8779346343) ALTv (test code = 32 U/L 5-50 1742-6) AST(SGOT) (test code = 47 U/L 13-40 H 6636520860) eGFR (test code = mL/min/1.73m2 3540621568) TOR (test code = TOR) Association of [...] tests). Lab Interpretation Abnormal (test code = 21959-3) [facility] CenterLIPASE2022-07-07 06:18:09 Test Item Value Reference Range Interpretation Comments LIPASE (test code = 2285968970) 50 U/L 0-220 Lab Interpretation (test code = Normal 59635-5) [facility] CenterACTIVATED PARTIAL THRMPLAS [id number] 06:08:06 Test Item Value Reference Range Interpretation Comments APTT Patient (test See_Comment [Automat ed code = 3173-2) message] The system which generated this result transmitted reference range : 23 - 38 Seconds . The reference range was not used to interpr et this result as normal/abnormal . TOR (test code = TOR) The [facility] patient population mean normal value for aPTT is 30 seconds. Lab Interpretation Normal (test code = 04739-2) [facility] CenterPROTHROMBIN TIME / [id number] 06:06:11 Test Item Value Reference Range Interpretation Comments PROTIME PATIENT (test See_Comment [Auto mated message] code = 5964-2) The system [employer] generated this result transmitted ref erence range: 12.0 - 1 4.7 Seconds. The re ference range was not u sed to interpret this result as normal/abnor mal. INR (test code = 6301-6) Nor mal INR <1.1; Warfarin Therap eutic range 2.0 to 3. 0 or 2.5 to 3.5, dep ending upon the indica tions. Lab Interpretation (test Normal code = 49953-8) [facility] CenterEC 12 [id number] 15:10:13 Test Item Value Reference Range Interpretation Comments Ventricular rate (test code = 253) Atrial rate (test code = 255) MN interval (test code = 266) QRSD interval (test code = 260) QT interval (test code = 264) QTC interval (test code = 265) P axis 1 (test code = 267) QRS axis 1 (test code = 268) T wave axis (test code = 270) EKG impression (test Normal sinus code = 273) prlbbn-Ofm-mthqncfy change in ST segment in-Abnormal ECG-In automated comparison with ECG of 13-APR-2022 14:23,-Nonspecific T wave abnormality now evident in Anterior leads- [facility] 12 [id number] 15:10:13 Test Item Value Reference Range Interpretation Comments Ventricular rate (test code = 253) Atrial rate (test code = 255) MN interval (test code = 266) QRSD interval (test code = 260) QT interval (test code = 264) QTC interval (test code = 265) P axis 1 (test code = 267) QRS axis 1 (test code = 268) T wave axis (test code = 270) EKG impression (test Normal sinus code = 273) andpli-Wio-kdufdxox change in ST segment in-Abnormal ECG-In automated comparison with ECG of 13-APR-2022 14:23,-Nonspecific T wave abnormality now evident in Anterior leads- [facility] + smear (non-sputum)2022-04-21 09:27:43 Test Item Value Reference Range Interpretation Comments Result (test code = No acid-fast bacilli 6463-4) isolated in 42 days AFB Smear (test code = No acid fast bacilli 68569-3) [facility] (non[facility]sputum)2022-04-21 09:27:43 Test Item Value Reference Range Interpretation Comments Result (test code = No acid-fast bacilli 6463-4) isolated in 42 days AFB Smear (test code = No acid fast bacilli 66295-6) [facility] + smear (non-sputum)2022-04-21 09:27:43 Test Item Value Reference Range Interpretation Comments Result (test code = No acid-fast bacilli 6463-4) isolated in 42 days AFB Smear (test code = No acid fast bacilli 01779-2) [facility] + SMEAR (NON-SPUTUM)2022-04-21 09:27:43 Test [...] code = 994) seen Fungus culture + [id number] 16:57:35 Test Item Value Reference Range Interpretation Comments Result (test code = No fungus isolated in 6463-4) 28 days Fungus Smear (test No fungi seen code = 1406) [facility] HospitalF[facility] + [id number] 16:57:35 Test Item Value Reference Range Interpretation Comments Result (test code = No fungus isolated in 6463-4) 28 days Fungus Smear (test No fungi seen code = 1406) [facility] + [id number] 16:57:35 Test Item Value Reference Range Interpretation Comments Result (test code = No fungus isolated in 6463-4) 28 days Fungus Smear (test No fungi seen code = 1406) [facility] HospitalFUN[facility] + [id number] 16:57:35 Test Item Value Reference Range Interpretation Comments CULTURE (BEAKER) (test No fungus isolated in code = 1095) 28 days FUNGUS SMEAR (BEAKER) No fungi seen (test code = 1406) FUNGUS CULTURE + [id number] 16:57:35 Test Item Value Reference Range Interpretation Comments CULTURE (BEAKER) (test No fungus isolated in code = 1095) 28 days FUNGUS SMEAR (BEAKER) No fungi seen (test code = 1406) [id number] 06:09:26 Test Item Value Reference Range Interpretation Comments MAGNESIUM (BEAKER) (test code = 2.3 mg/dL 1.6-2.6 627) Wooden Box Maker ID - BSBASIC METABOLIC [id number] 06:09:25 Test Item Value Reference Range Interpretation [...] S NOT APPLICABLE FOR DIALYSIS PATIEN TS. Wooden Box Maker ID - BSCBC (HEMOGRAM ONLY)2022-03-30 05:42:06 Test [...] WBC 0-0 (BEAKER) (test code = 413) [id number] 07:33:38 Test Item Value Reference Range Interpretation Comments MAGNESIUM (BEAKER) (test code = 2.3 mg/dL 1.6-2.6 627) Wooden Box Maker ID - BSBASIC METABOLIC [id number] 07:33:37 Test Item Value Reference Range Interpretation [...] S NOT APPLICABLE FOR DIALYSIS PATIEN TS. Wooden Box Maker ID - BSCBC (HEMOGRAM ONLY)2022-03-28 06:40:03 Test [...] (BEAKER) (test code = 413) BASIC METABOLIC [id number] 06:37:43 Test Item Value Reference Range Interpretation [...] S NOT APPLICABLE FOR DIALYSIS PATIEN TS. Wooden Box Maker ID - ADRIENNE [id number] 06:02:38 Test Item Value Reference Range Interpretation Comments MAGNESIUM (BEAKER) (test code = 2.2 mg/dL 1.6-2.6 627) Wooden Box Maker ID - ADRIENNE LCBC (HEMOGRAM ONLY)2022-03-26 05:38:14 [...] 2D Echo W/Doppler(CW/PW/Color)2022-03-26 02:14:29[facility]/PW/Color[facility]2022-03-26 02:14:29Ejection [facility]SLEH [facility] W/Doppler(CW/PW/Color) 2022-03-26 02:14:29Ejection FractionSLE [facility]CHO [facility]LAB [facility] HospitalBAS[facility]OLIC [id number] 06:40:25 Test Item Value Reference Range Interpretation [...] S NOT APPLICABLE FOR DIALYSIS PATIEN TS. Wooden Box Maker ID - CLIVE [id number] 06:34:50 Test Item Value Reference Range Interpretation Comments MAGNESIUM (BEAKER) 1.7 mg/dL 1.6-2.6 Specimen slightly (test code = 627) hemolyzed Wooden Box Maker ID - CLIVE GCBC (HEMOGRAM ONLY)2022-03-24 06:26:20 [...] Comments SARS-COV2/RT-PCR (test Negative Negative code = 90718-8) TOR (test code = TOR) Negative result [...] the Act. Testing was performed using the [employer] SARS-CoV-2 assay. Fact Sheet for Healthcare Providers:https://www.cheryl aviles/amanda/RT SARS-CoV-2 HCP Fact Sheet 51-382943.pdf Fact Sheet for Healthcare Patients:https://www.ana barajasyork/amanda/RT SARS-CoV-2 Patient Fact Sheet EN 51-895386A1.pdf Lab Interpretation Normal (test code = 68312-9) [facility]ARS[facility] (Asymptomatic ONLY)2022-03-23 02:14:16 Test Item Value Reference Range Interpretation Comments SARS-COV2/RT-PCR (test Negative Negative code = 47602-0) TOR (test code = TOR) Negative result [...] the Act. Testing was performed using the [employer] SARS-CoV-2 assay. Fact Sheet for Healthcare Providers:https://www.cheryl aviles/amanda/RT SARS-CoV-2 HCP Fact Sheet 51-612881.pdf Fact Sheet for Healthcare Patients:https://www.ana barajasyork/amanda/RT SARS-CoV-2 Patient Fact Sheet EN 51-490435N2.pdf Lab Interpretation Normal (test code = 72049-7) [facility] HospitalARS-CoV2/RT-PCR (Asymptomatic ONLY)2022-03-23 02:14:16 Test Item Value Reference Range Interpretation Comments SARS-COV2/RT-PCR (test Negative Negative code = 33741-0) TOR (test code = TOR) Negative result [...] the Act. Testing was performed using the [employer] SARS-CoV-2 assay. Fact Sheet for Healthcare Providers:https://www.cheryl farmeryork/amanda/RT SARS-CoV-2 HCP Fact Sheet 51-364714.pdf Fact Sheet for Healthcare Patients:https://www.ana barajasFive [employer]rapeutics/amanda/RT SARS-CoV-2 Patient Fact Sheet EN 51-387269K8.pdf Lab Interpretation Normal (test code = 66410-3) [facility] HospitalARS-COV2/RT-PCR ([facility])2022-03-23 02:14:16 Test Item Value Reference Range Interpretation Comments SARS-COV2/RT-PCR (test code = Negative Negative 0920625) Negative result for this test determines that [...] 564(g) of the Act.Testing was performed using [facility] SARS-CoV-2 assay.Fact Sheet for Healthcare Providers:https://www.[employer]/amanda/RT SARS-CoV-2 HCP Fact Sheet 51- 613544.pdfFact Sheet for Healthcare Patients:https://www.[employer]/amanda/RT SARS-CoV-2 Patient Fact Sheet EN 51-329146W8.yhdPGDXHEJFD5246-74-32 11:48:01 Test Item Value Reference Range Interpretation Comments MAGNESIUM (BEAKER) (test code = 2.3 mg/dL 1.6-2.6 627) Wooden Box Maker ID - BSBASIC METABOLIC [id number] 05:47:02 Test Item Value Reference Range Interpretation [...] S NOT APPLICABLE FOR DIALYSIS PATIEN TS. Wooden Box Maker ID - CHRIS MCBC (HEMOGRAM ONLY)2022-03-22 05:08:26 [...] (BEAKER) (test code = 413) BASIC METABOLIC [id number] 05:50:37 Test Item Value Reference Range Interpretation [...] S NOT APPLICABLE FOR DIALYSIS PATIEN TS. Wooden Box Maker ID Christopher BARRY [id number] 05:50:37 Test Item Value Reference Range Interpretation Comments MAGNESIUM (BEAKER) (test code = 2.2 mg/dL 1.6-2.6 627) Wooden Box Maker ID Christopher BARRY WCBC (HEMOGRAM ONLY)2022-03-20 05:16:27 [...] (BEAKER) (test code = 413) HEPATIC FUNCTION [id number] 18:46:08 Test Item Value Reference Range Interpretation [...] (test code = 26 U/L 6-55 347) Wooden Box Maker ID - BERTHA [id number] 06:20:38 Test Item Value Reference Range Interpretation Comments MAGNESIUM (BEAKER) (test code = 2.2 mg/dL 1.6-2.6 627) Wooden Box Maker ID - ASHA WBASIC METABOLIC [id number] 06:20:37 Test Item Value Reference Range Interpretation [...] S NOT APPLICABLE FOR DIALYSIS PATIEN TS. Wooden Box Maker ID Christopher BARRY WCBC (HEMOGRAM ONLY)2022-03-18 07:10:29 Test Item Value [...] (BEAKER) (test code = 413) BASIC METABOLIC [id number] 07:03:46 Test Item Value Reference Range Interpretation [...] S NOT APPLICABLE FOR DIALYSIS PATIEN TS. Wooden Box Maker ID - ASHA [id number] 07:01:20 Test Item Value Reference Range Interpretation Comments MAGNESIUM (BEAKER) (test code = 2.1 mg/dL 1.6-2.6 627) Wooden Box Maker ID - ASHA [id number] 08:38:36 Test Item Value Reference Range Interpretation Comments MAGNESIUM (BEAKER) (test code = 2.1 mg/dL 1.6-2.6 627) Wooden Box Maker ID - DBBASIC METABOLIC [id number] 08:38:35 Test Item Value Reference Range Interpretation [...] S NOT APPLICABLE FOR DIALYSIS PATIEN TS. Wooden Box Maker ID - [id number] 13:32:40 Test Item Value Reference Range Interpretation Comments MAGNESIUM (BEAKER) (test code = 2.0 mg/dL 1.6-2.6 627) Wooden Box Maker ID - BSBASIC METABOLIC [id number] 13:32:39 Test Item Value Reference Range Interpretation [...] S NOT APPLICABLE FOR DIALYSIS PATIEN TS. Wooden Box Maker ID - BSCBC (HEMOGRAM ONLY)2022-03-16 08:32:01 Test [...] 0-0 (BEAKER) (test code = 413) SARS-COV2/RT-PCR ([facility])2022-03-16 01:26:39 Test Item Value Reference Range Interpretation Comments SARS-COV2/RT-PCR (test Negative Not Detected, Negative, code = 3415371) See external report for linked test SARS-COV-2 PERFORMING LAB [facility] (test code = 2285984) Negative result for this test determines that [...] of the Act.Fact Sheet for Healthcare Prov iders:https://www.[employer].Ubitexx/sites/default/files/product/documents/Fact_Sheet_HC _Zoyouttin_Rgdk_DJVU-VeD-1.pdfFact Sheet for Healthcare Patients:https://www.[employer]/sites/default/files/product/docume nts/Ahql_Aucwo_Npobrplt_Iwpp_LFAS-GfG-0.pdfPerforming Laboratory:[facility], [place] [id number] 06:37:58 Test Item Value Reference Range Interpretation Comments MAGNESIUM (BEAKER) (test code = 2.0 mg/dL 1.6-2.6 627) Wooden Box Maker ID - BSBASIC METABOLIC [id number] 06:37:57 Test Item Value Reference Range Interpretation [...] S NOT APPLICABLE FOR DIALYSIS PATIEN TS. Wooden Box Maker ID - BSBASIC METABOLIC [id number] 07:22:38 Test Item Value Reference Range Interpretation [...] S NOT APPLICABLE FOR DIALYSIS PATIEN TS. Wooden Box Maker ID - PIRIMMA [id number] 07:22:38 Test Item Value Reference Range Interpretation Comments MAGNESIUM (BEAKER) (test code = 1.9 mg/dL 1.6-2.6 627) Wooden Box Maker ID - ADRIENNE EASTMANBC (HEMOGRAM ONLY)2022-03-14 07:10:08 Test Item Value Reference [...] = 413) RAD, ANKLE, MIN 3 VIEWS, [id number] 19:19:00Reason for exam:->pain. [facility] : 2000 Sex: MFINAL REPORT TECHNIQUE: Three views of the left ankle. INDICATION: pain.. COMPARISON: None. FINDINGS: The oblique view is suboptimal. No acute fractures or dislocations.Joint spacesare within normal limits.Mild soft tissue swelling of the dorsum of the midfoot. IMPRESSION: No acute bone abnormality of the left ankle. Signed: Jackie Miller MDReport Verified Date/Time: 03/13/2022 19:19 :26 Limited 2D [id number] 16:46:16Ejection FractionSLEH ECHO [facility]LAB [facility]Lim[facility]D [id number] 16:46:16Ejection FractionSLEH [facility]D [id number] 16:46:16Ejection FractionSLEH ECHO [facility]LAB [facility] HospitalBASI METABOLIC PANEL 2022-03-13 08:30:32 Test Item Value Reference Range Interpretation [...] S NOT APPLICABLE FOR DIALYSIS PATIEN TS. Wooden Box Maker ID - [id number] 08:30:31 Test Item Value Reference Range Interpretation Comments MAGNESIUM (BEAKER) 2.1 mg/dL 1.6-2.6 Specimen slightly (test code = 627) hemolyzed Wooden Box Maker ID - DBRAD, CHEST, 1 VIEW, NON [id number] 07:53:00Reason for exam:- >s/p [facility] : 2000 Sex: MFINAL REPORT RAD, [...] MDReport Verified Date/Time: 03/12/2022 07:53:35 BASIC METABOLIC [id number] 05:15:17 Test Item Value Reference Range Interpretation [...] S NOT APPLICABLE FOR DIALYSIS PATIEN TS. Wooden Box Maker ID - ADRIENNE [id number] 05:15:17 Test Item Value Reference Range Interpretation Comments MAGNESIUM (BEAKER) (test code = 1.8 mg/dL 1.6-2.6 627) Wooden Box Maker ID Christopher DELEON LCBC (HEMOGRAM ONLY)2022-03-12 04:40:22 Test Item Value [...] WBC 0-0 (BEAKER) (test code = 413) [id number] 12:03:27 Test Item Value Reference Range Interpretation Comments MAGNESIUM (BEAKER) (test code = 1.8 mg/dL 1.6-2.6 627) Wooden Box Maker ID - CHRIS MBASIC METABOLIC [id number] 12:03:26 Test Item Value Reference Range Interpretation [...] S NOT APPLICABLE FOR DIALYSIS PATIEN TS. Wooden Box Maker ID - CHRIS MRAD, CHEST, 1 VIEW, NON [id number] 09:48:00Reason for exam:->s/p [facility]LE[facility] : 2000 Sex: MFINAL REPORT RAD, [...] code Surgical Pathology = 104) Report Case: [id number] Authorizing Provider: aDe Walsh, Collected: 03/02/2022 06:37 PM Ordering Location: [facility] Received: 03/03/2022 02:09 PM PERIOPERATIVE SERVICES Pathologist: Suzanne Camargo MD Specimen: Mitral Valve, Mitral Valve Leaflet DIAGNOSIS (test code = v7zfgSSsPJEnk6dsVNZytLW 3220) uZzEwMzNcZnRuYmpcdWMxIH tccnRmMVxlcGljOTYwMVxhb pFlMGIfePKwV0QjfuqdMUyu SV6dDM3kzGwseGEmmJWrSYH xDyYiq1kyq919wELhp3lkSS GIvcfhjVx3gHdzZ56nh6R6K nqgA55rfNPqVON6HYCjYNMm nFFmHJAbRPN9XCOjgKUwX2j fCEJwQL9bwuviZCieSSnaYQ UvvVZ8YFRrvOCoI9ZoQBWlO PxwCEXjmnh7CjQePi1zgNKu eTcyMFxwYXJkXHBsYWluXGZ zMjAgTUlUUkFMIFZBTFZFIE cWIIFPRLWGHQRZDDAYA4pKJ ougUSLgvPJwWE1xEdOIYhBR GHJxKUjQG7YEFZqGEAbxYDX YSZYgYQ1PCRWRKBFQBZ1LSG RLUOSVKE3JIUNLXHwWFaLgK EcLEGESGIrsDQUaCgk4UkHi VQQEYvTlZ6KLIrGRYNPIF34 lJBgTU5VXNRMbgo24EYS6Zn Mbj4H2NKW5WCTcZLAxl8taV GVmbGFuZzEwMzNcZnRuYmpc rHXbSMHqKxYgc9rwu615bGE sp7vgHMRePfT6fQSgWCMucE DkI903JTNvTQqpz6euj4WzB RKdiLXnt8U6JAPEcmsrhYs7 hSidJ99lt7K8CxqrZ5gfWZV nFUGgS5MlVV7yAWBjEal7UD B4WVM6LAXpKISvE7ElEU8hF HVxdDWbXGs2u8phkRgfIBKv WWX0o3juCPxstzTsXK0hfx0 htSe7h9seswAfULLhHUAkrM NGQJUbL3BllYrrHs5ymYp6r TgrNkebKHJ6Kso2IJ4xrr33 lkq8mNvaVYSovulhSqV6VVq oNSLbhltbTSh9RJjrZMJarS O1VCCzfKLtD9OySAZeYK7ib yk3HBE1TRhbAGVaNbZ1RJRl kOKgLDQwrOqhHYpko006QUI 3TnGcCT2wO0Fet2S5xB6opA XsNKMifRXpSbUnPHSznn1tu HReXZfjp9CwYBB4hlC4jKMz yJTqOMKwJcT2BLkwPP1kgs6 9TCSwXAD8ia5hmEEboYutae ZryTYmKLhmV4DqXKKxi693T GGrK8QuDSBzi2U4nrWmFpXv NRWnsJE1nsZ3SGZwYK9oipt mq7ugUXaoXTlcKCZsnvR7br N3FFAaiXWnY8DinJ7uHCCvM T2kalzmq8wkZYI8MLdkJVGb YSI9ZmDkCQQnx5Enmua3XfF fg8XwdNYeHHyvZ89iz571OU NpxrZkV1ddkJTxfzozePExz zexMVhfzeT0CNIpBGsvezwa QXPjXRnjS1viAmQtHGOdbWj oSKlgd1TyIICeXBQeGcSenW TiLQLiDpa7RHCzcKLzZENpN eQrS4yoxhinSvFOOUNwo3wi N5nyeUSTmEZiT8TiQVyaqgZ uVIbzVFwzTgZoYEd2UD04Tm TmPQNmhu68 CPT Code(s) (test code l6npjGNhNFLrmTV6NeCaIFL = 3357) jh4dgg2WkwTKykVHaUAyhsG CigbOshz89hOP5iI53VL2hU ROsXdU0YGXaraB1Wkf4TTYz SVMbdFMjM362r2lmi1msggL xjLQ8rZajMRHpmfjmXjR9HS laFFRdagivQPs1PJtyAZDhu LM9OUWlhZQkV2UhTOKtCZ3h qog2YKQ1MEgxGGYqMmL5CIA uvRGnZUJhkWezVGgvr720XM B0RmOlFJMbdyCdgBzxsA8vQ iUxQAA2QTIjJTQ9RXBqNIZj cGFyfQ== GROSS DESCRIPTION f1dvlYGhIZVwcBKQJKGsNlb (test code = ixjPxBPXmtXOeO4TnnqlcXJ [id number]) grXN1bTV1krBetwUDekWDyG A5XRPHmErAmCIKuzQSkvjNs DiYmZHVzwUXseHT7URZjBS9 vfeebDUwkODlpHINqnsB5TI KifMAdB6VtJVPhYB4ecfxmP WN6EDmynG4zwrAZFwonAf7o dHRibHtcZjFcZmNoYXJzZXQ bGLDfuGzdABBqEAi7xV0JHm blFNU7FMDIEwfzTUDsPP9Gj 6gsUYPkpZJfXMJ1QOuzzQQa TSQdJBDiSKc6MMOgSKmuuEZ bTE3giFloAwzdxWrej7WspJ BcXGlkIDUxMDAyIFxcZGIgI G7GYyNkMYwBMmX9SEJ9LeN7 SMo5YALITrDhXeRpSplfEpg nEejtKPx7PSd7CHgARrQ7DH oaDkA1VIAcXBKhTCzyCKo4Q DIgXFxmIEFyaWFsIFxcZmwg AJqhW30ucGcrlL8fHS6yGAb 0cmFsIFZhbHZlLlxwYXIgDQ yzXEOgV92eu0WSg9VvEH1JE Qm2azUpelunbW7lTLWfhkZu YDwzeZAmN3guRsIoYIWSPrJ dIfFcMJw6ZQImsG1jBb7owJ EhbH9woOShUBijEZB4qTLbB DTuoZzmgiNzjaZkXX0vYZSw P3Vxi1Ejh17cutSyGyRvTSU aHBNnwJz8umNpOCMugNDyZi UpmcLzPEqsNMD2GPQqpHEkG sBeO31mxXZoDBzbkMVoBEYa VpCrxAHcl2OjcWKuFETeMLP eLO2jFMLly1N5BKL5eLWpZB 02kPJutEpoDXJuqc88cGx5N QAlzO3hGGAyfOVrhfKlxKhr hjVpTY6pZZZklXNoVKOrhXJ gXWvtdJMhEKQebh4dux4rjZ bunl2sMNArzROzn4PawOQ2e SNeELNhV0Tvq23wMTOzHMVi xCJxuYE5PVEfvC7mX9Zme7H 0tTJlEJXhQXFuYPFIJw5uGL esyKhodN9mALPwR06ko4FGg 0SqMDVsHQdnh9ikcFtpk7Ak dGVuZFxwYXJccGFyZFxzbC0 jPeKma8gewJi4WSqvihK3OL Mehv8DPqqljI6jIzXsp2edu Wq5UXMYYeedqfH2n6vgxEvv k8ZjeLSxKK7EYg1= MICROSCOPIC n7fhdJChDKCajMV3YgVuZFC DESCRIPTION (test code tg8kdm6DqdKMzmPIjLFuasQ = 3371) CjgdFnom02lRJ5iY84CK6yW UQuYxV5TIVvxoM2Hce7INIy KSFhxQFtV034n2qvj1suvoU kzDF5nDaeMILtztnuIlT2IK qxILRjtrkvDVq0TWlvKETkv JF0KGRwlSQgT8VfITWrXW1g ebn5LOZ3PZraYMUpXnK8VFK emBEwAKHyrYzwICxjb426MO J3VnYkJHByxdLetXrfsC1hP mFrJCTIGCXln4BxTETgTNwk YXJ9 Gross assessment was [facility] performed at ([facility], code = 2777) Department of Pathology, [address] [place], [place] [id number], Technical component [facility] was performed at ([facility], code = 2778) Department of Pathology, [address] [place] [address], Professional component [facility] was performed at ([facility], code = 2779) Department of Pathology, [address] [place] [address], [facility] Hospital[facility] [id number] 18:56:57 Test Item Value Reference Range Interpretation Comments Case Report (test code Surgical Pathology = 104) Report Case: [id number] Authorizing Provider: Phill Walshnetloulou Sprague, Collected: 03/02/2022 06:37 PM Ordering Location: [facility] Received: 03/03/2022 02:09 PM PERIOPERATIVE SERVICES Pathologist: Suzanne Camargo MD Specimen: Mitral Valve, Mitral Valve Leaflet DIAGNOSIS (test code = z1pivFDnUDIri9ixXNAauSQ 3220) uZzEwMzNcZnRuYmpcdWMxIH tccnRmMVxlcGljOTYwMVxhb aJsHEGduLIeK3AlwmfoRFrt YB9pSE6wcVrfgCTbkPOdDEQ eOkTgj5jzm382cRBmc6wvJY FNevbmaIk6eWrnF54zh7Y5T xhjV82crMNrVOQ0NXSsLNXx dWYvNLDrKCQ0CXNrrBPbA2q qVWIqGI2jrxzoCFdjEHxuCJ IehVM4OXVlqHWoS7SfGXOyI RjlTJNciap4NqHzOr2pjIVd eTcyMFxwYXJkXHBsYWluXGZ zMjAgTUlUUkFMIFZBTFZFIE jJZXYNCBBUJGMJEMGNN4hFF pisBILdrZJfTC9qThOPVbKU ZELwNHgNM5SLSFgAJSvoWJV TRWYiKP9OOTPHVEYTOS6KFC IFGFJZCI2LHHTKLTqTSsYjI VfRHAINRLuiSKGbMxk3MgWj ZRRTUsQaI0PVJyQMDZLGU89 aAZhRV8FGAJPbdr89QHX5Wx Obt6S1VSW8QVNvNDCns3xxX GVmbGFuZzEwMzNcZnRuYmpc kRIuGUPbJoBks2qsp904nIJ bh5xxTQWpJxQ6uDAqFRKzhV AxY846BPUeFMaxl3nxy2QfU OEwiHYlz4V1HAYIbwxbnRv9 bAccR27wv9F6HqtbL0wmUFD xIYHcU1UrFT2zHJYsBpa7MB O3WCN2YRGvAGZqC8LuYT8bJ XCiiQReTYe6z7sgqEriNSNv INN8p8fcQJhvimTcSA2pot5 mkGe7g0ezcoYtHNOmFRWxzT ZBYNWpF5LleGhfJy7yrWb5a IabYlahVGV7Snp1UA5uga69 kpo5vGsmZCBiayiuQbM4KXs lKLGfkqlpAMt0ZXsrNZAbiL N8HMZweMFrO2IcNFPhWI5je kd3PBB7VLbkDSLrTvT9QZGw lYTlAYFjrLlqKItpq861VSC 1VzNuZA1xL5Tye4I7qD7anQ ZnBPUibJUwPxYuHGXeig6vi DFrGWndp9BpKAE6hcC5eJIq yMHbBDDyVxM9YMopET8rwl0 4IJHlFKL9jy1wnRGpwLhwlz SwySPyARczG5GoMILfv443R IPaK9CsRCUpg6B6ohJkVmQc WRZmqOQ3yeT1IQZxEK9ulpy am7hlWArfEXuiNJRwhuC3qi C4URZexFUwE5RbyX3kCONwI E4xhqnnp8goDCX9WWhgXILy CZV4ByYlDPWbg6Vjfkr0YpG he7RdpJLbNDwdA58zo731SQ CwwoSxD7pykPLlzunsyRLjj roiBBrguqR5DXXtLPozrfdm QZGvHUtpV2veXwCrBSGwjVg eGKwfr0YgVHYyFIDaRiWyiM YiRRCcLvb0WHPxzAMsXXYqM fCpW9uxkufrWrMYDTZrk7oz Z8wtxWEXcVVkW4CnEIkjbiY zJKxlAGgoIeTbWRi7XN08Mr MzUDXukr36 CPT Code(s) (test code m8dcxJQpBYFgvYU4SaDnIVQ = 3357) mk0jpz9NlkMIflNJmQNkmxW ZgwdDnuu08jQC9wT15QN4fR YIaYsD1GSJelvK5Pni4WDYc OYBhrFLfO121l5tml3ugmsQ ieQA0dZljGKDtaoeoQgH0UV oiTJQhamroPJb5NQltGEIsg DN3MSJtrLPdS2OsTAKsRC9s thj6NOR8KIcbJIKfTvJ8REF fbHLsZHRgiYgoAOavo860ML H6HkKfILGdkgIasYxbrR2iH oFsDUY4RINwVQZ7BMYsENHe cGFyfQ== GROSS DESCRIPTION v3rzyFJdTAXewHGERZYwZcl (test code = bwgGjYDLgxNCmC5JpwhbzCK [id number]) xeOK6zZA1peLsniEJrwSCiX K5KEMXiQcYtEQSkyHSuysIh WeFcJEEuxDKzeLP4PQWlFD4 kvrgjCMhmETxfJPBfsoF2FD WllZDvP4WkGHIlNI6lcmqdC IW5XSoizX2cqiZQWmzpAq4u dHRibHtcZjFcZmNoYXJzZXQ yKJCofAntCKEkQYa3bM0WDo unVKA5GTMWRikhBKGaGC0Ln 3zsSDNbhKUtTZP4AUxhcZDo JKWiIDGtBGv3JDNiRFvwiYQ oZE5goRbcWeaecPbaa8EvtB BcXGlkIDUxMDAyIFxcZGIgI O1BIsEwXEyAQvD6RBC0CqD5 HRj6ZFZSTwJxEtNsDhwiDlg kDgjuPMo5MDd1FKaURmC9ZP qjZoN3AXSeLOWiPLraQJv6S DIgXFxmIEFyaWFsIFxcZmwg KPoyE76qzQiccY3oST2bBUf 0cmFsIFZhbHZlLlxwYXIgDQ vhQGJfR96xq3WWx2GkCX6PO Tq4tjIkvjpbpY0kYJFoihCz EEtpoPLbV5jlFcSxZOCDNgP dToEfBBk4LTSdiM0yKa5phB JgcJ0gzVOcFBwiXZG0oJJgS OVbzQphluFclfCbZV9pEPAq H9Cns3Sxr54nhyDxJcXzFZC wJEGhvDa1ggAxTYQumIMgRk LqsoSrHDpjVFQ9NTAobMDaB kNdT17nuMNbDSnbeAGrDNDd ShForVGyn9FozCOoGPMmFVH aSJ0eELCtg8J0UUI5vJKiBA 51cBVntLpkFTVind69oEm3X EEegK4dHSKkcMEtdgHfpAtj otFzML4oSWBrwJNqBEUobDR gKMykqXJtFXRpsl1enr9hiZ kcye0zCQPxwLPbn7UqnYA7p RFxIMCvN1Cvk88cCPDiTDAh iOXtgEK3XIIyyK6bH2Pws9Z 9hQBuUBOqMXJpZMPWOl5kHM uviPhxhQ4rXHRxS94rr3KGp 5LcSKDcTKxen7yzzFhcz7Uq dGVuZFxwYXJccGFyZFxzbC0 mLnCjj9zqoHr5LRsazuL4NI Popq7HAjpvaE9aHnGad5ini Xj6ZRPYXblpjlL7l9vxvTdi n4FioSAmYU0FEh2= MICROSCOPIC c5kedOItDBKwvZK6NzWoGOI DESCRIPTION (test code dn4snj5CacBJdpYFkNLxcsA = 3371) ExjuTdvn05fWL3yV19AE4rO ZTjFjW7KZThlhA0Bil1QBFw RDVcfHUlN345z4zvo9ucdtT qlBL4nXtkTWZyodgzLwC5OL hvNJPjzskoTIa6XYghEJBny DB4DAMurBYaI1JiRHSePK1a iiy3LIE7WUljCMJxKfC3KXT ngXOeWIAwyOxfFTayi435MF R6VzPmHPCgizMtpVbkjT2aD pJaYWYQSSEkg3RhXBGaXVsk YXJ9 Gross assessment was [facility] performed at ([facility], code = 2777) Department of Pathology, [address] [place] [address], Technical component [facility] was performed at ([facility], code = 2778) Department of Pathology, [address] [place], [place] [address], Professional component [facility] was performed at ([facility], code = 2779) Department of Pathology, [address] [place] [address], [facility] Hospital[facility]issue [id number] 18:56:57 Test Item Value Reference Range Interpretation Comments Case Report (test code Surgical Pathology = 104) Report Case: [id number] Authorizing Provider: Dae Walsh, Collected: 03/02/2022 06:37 PM Ordering Location: [facility] Received: 03/03/2022 02:09 PM PERIOPERATIVE SERVICES Pathologist: Suzanne Camargo MD Specimen: Mitral Valve, Mitral Valve Leaflet DIAGNOSIS (test code = b6emhBJiZGExj3knHRSjdEP 3220) uZzEwMzNcZnRuYmpcdWMxIH tccnRmMVxlcGljOTYwMVxhb nPuRUXrgKOhM7JgcvxbYScu MT4hZG4heTfneZZgoWCoIUH jNgZga7qel889tHChv2rrBN YYcfgmzSy2mTelD98vx6P1V twoO41baAZvFXF8ZQGaDPAv zIYnNWPmOYT7HIKojEIvE3r nMQYrWJ9ngsqhVMcwYLvySD EauPF9RECbeQGnM4CbUKIjU JlfPGAmgbx7DoLaAw3goCKe eTcyMFxwYXJkXHBsYWluXGZ zMjAgTUlUUkFMIFZBTFZFIE cYUMJGNIGIVRXCNKUZN2lDP jqcNZSecCMfUW3pUeFQZjEQ FGDlYOoRU2BWJWuHBRogNNR AKWZoFC3BOAVMZDGCKO2YAP DJMZMDEY3GRJYTTYaJHdAvX SmCZBBAEHigNACdTfi4BwNl QGDTZdVjL8OYYiCAEXQRW87 qAShGD1CEGRVuzw04WTY1Ed Itf2J2IBP3REAyOHOxz1xkX GVmbGFuZzEwMzNcZnRuYmpc hPRsEUCnEmIbp3btj492jGF ip5wfGTYmBrC6qEPbVNMwdA KsA951IBHaJEjty6apj3YrL CJhzOPho0E1SBAPrunctYv5 jYjiS89aa1V8XtbqE4bnLMZ qVMHaL9CvZP7eVJYyCnh1AD X6KCI2VNJdXDTzQ8HcUI8mF IYikQLmZDx5e8nsxGsiFSLp VVP7z1cyKBukxzKzRQ6lcv5 yeDm7a2pjkaHoSINyGQBhfI BBBIKnK6WrhFdqYn8djVr4a ShbWtlbDYY2Qsz0YR4fmv54 qrx5oZgbBVOlmztfArP7QAh oTWSynnvzXVi9BYvwANYpeY A1NKOkkMYbX4EvKGHlFG9we cp0FUK7KDruMYHeOkW2TGKa rSLkWHNdyOphFJijm175CXJ 9IeXiVM3qY2Eqf4S8eD5xyC VmBISrlYAhNjChJAAxqg2ju MPcAAfdu2ClOXI2egJ6xPDz yENtALVzBaS6IJejOF4pkc0 5ICEzBND9eu9utPZzpShrwk ZwzSImAMniC8FjJTKwc017B MUxZ5CcUIFks7G2jmLhNgBy IYAovAM6faR5QZVmWG0yuut zo8joRMdzNGtkPLWkugQ0fa A2XIYbkKRhP4QbhH4sSEXkS T1vqxpct3zjOKO8TRssSHNb BXL9EdQfANTrj9Rjfsx7DdU cj9HvqCZbVMgkE26lt529MX SlbcOmO5ewwLRsvanfaNEwj xnfCPrcmzA8OZTtYBjxopmp ZVWjWWbbC9dkTcZnHMDvsRc cGMrha5QbAJQuHBSzGgTtkT EhDMQkCnb9YMPrpYKkPDVsQ jMaC3oliebwInZHBSCgf5ai Q9gayYZQeDAkO7TtYZrxuxL oZOhiQEzqMcApSGw6DQ40Qc DpVOPlah24 CPT Code(s) (test code s5hjyPMvAPJkvIZ1GdBoVXC = 3357) zy4gmj4OnjRTnyNFuOUdwzZ PqqcVjaw17lJQ3pI09OH6vD XEeDnB5FLRkcyW3Von7ZVGe HACvnIMcE261m1zfe1dezkA xiMJ5aRcoHLPmcgysGaC3MD ghOGXhnlghZMh9JBrnFXQcy GE6BZWepXOsX0VhBTVbYR1y zyw9UFU6BVsmCPIwQpH7JIM jeANzBJDxlDqrMOupk928JG O3IpEtXTFrdzIpaXkjsC9yK gHrHSL8SBTvPLB0AAZcQXOl cGFyfQ== GROSS DESCRIPTION s4jviYByIKFtyMRLTPFzZlz (test code = wakAzHVFxjQDgB0NktmdnWR [id number]) smSC4cLZ1xoSgfeUOvsYAmF E5FLPGnLqWrVEKaoYOkyvJs AsIhQNQzoMFqtOU8SGKzBX7 ilabtAMliBQrmPFOttsV8HZ AhhWDsR3YiIPAnRO1jkjcvV NC4WTfbgQ1fbuJLDcyyVr9e dHRibHtcZjFcZmNoYXJzZXQ zTUOwaQcwPQOzWLv7qG1YCl soQPF4KIYEOiwtNOCzDC7Va 9xbSMRutDSgYCV3UBcilRPl POAySFQsYYf5HWOoXDaglTY xLA5znAkfIthirNfqz2DabW BcXGlkIDUxMDAyIFxcZGIgI X0WZjQiRXsESjB9IKK2JgH1 LUy0IKLKVwPsGhRkKnouJdv fYgxhBCe8OZy2GMqEYrC5IE ndPmC4ZGIyNFMeOZihVSi1U DIgXFxmIEFyaWFsIFxcZmwg JIlzI38ycLnwxW3vCQ7jCLd 0cmFsIFZhbHZlLlxwYXIgDQ pgSMSxX01gt5SOk3BwKU5XQ Ze7lmQwkcvceW9oGDHhviBd GDdzkAYwV7igIvNyIBJUSaE yDaYdBNs8LYFnrK3kYu6lcO ZkqK7jdAWyKMqyHTC5kHDtA PTblXsyznQocnBeWP1xGMLd B6Vys9Lsi26ztgCmDeLwKSY sFWMvyGl4ccOrAHYbtCZyWp UlnjFmONsxHCM4EYChxWXbC aGhP25oyBPyTXxpbNAdCPJk VbFteFBkk0IhdCZbDKSzEXD sHK4nNWQib8T7UZW7tEHkNY 05vFYxnElbYBCmcj41aNc0O IZyzM9lZANheKGyddIsqYge poUhTI8zUUWujZBqOURfcTT uIMgkuQPwUEGnaf4miu0poZ tqsi4cDFBimAGma9UxgXK0w MUlZUIrX6Hay29mJGBmMYGt lUSfdBT3CNXdrK8xW9Ztw3E 3wMMzZURiHPZiZXALWw4vSG eofXbuhT5lOMCiG78zn1LZj 9NsFTOuEEeot2earExxv5Bf dGVuZFxwYXJccGFyZFxzbC0 uJlSeo0fyqFe7FIqkqjT1AR Kckt7RQnpcdL7mWnHvn2czu Do2JNGSYfrtpdP4m6mfgWok e7WemBKhFO2OKj5= MICROSCOPIC t8uyeIKwCGQfqDT4IfKzUFO DESCRIPTION (test code dk1kvw5PpfCXciJEeDXgsaL = 3371) HfjxNhrg14zRY0uB79YG3jO FCsVlX8AAEkbrB5Uiv2LJIy UYGwvWXrJ218q3add6jvhbA hxCV9iGxgRHVbsqnnKeO3RL nkUGMvkrftZQf1JDlxCUNwy TA7TFNkfIFlN0NuNOAjVK6z ekj5AUZ6XJvaKFJsZiS1EUO dvRDtALOgtFzgUOtjj122FO B9IwOgZLKvhpGxgHcpcF9mM rQkRFSUBNQws9GwZOCwWRzc YXJ9 Gross assessment was [facility] performed at ([facility], code = 2777) Department of Pathology, [address] [place] [address], Technical component [facility] was performed at ([facility], code = 2778) Department of Pathology, [address] [place] [address], Professional component [facility] was performed at ([facility], code = 2779) Department of Pathology, [address] [place] [address], [facility] HospitalTISSUE [id number] 18:56:57Surgical Pathology Report Case: [id number] Authorizing Provider: Dae Walsh, Collected:03/02/2022 06:37 PM Ordering Location: [facility] Received: 03/03/2022 02:09 PM PERIOPERATIVE SERVICES Pathologist: Suzanne Camargo MD Specimen: Mitral Valve, Mitral Valve Leaflet MITRAL VALVE LEAFLETS, EXCISION - VALVULAR TISSUE WITH ACUTE INFLAMMATION, FIBRINOPURULENT EXUDATE AND GRANULATION TISSUE Signing Pathologist Direct Phone Line: [phone] signed by Suzanne Camargo MD on 03/10/2022 at 6:56 [id number] A. Mitral Valve.A. Received in formalin labeled with patient's name, accession number and "mitral valve" is a 8.5 x 2 x 1.5 cm north-white fibrous opaque piece of tissue with multiple north-white linear projections and adhered north-white firm nodules. Auxiliary Powerplant Operator sections are submitted in cassettes A1 and A2. Performed. [facility], Department ofPathology, [address] [place] [address], [facility], [address] [place] [address], [facility], Department of [facility]ology, [address] [place] [address], TXV, CHEST, 1 VIEW, NON [id number] 09:08:00Reason for exam:->s/p [facility] : 2000 Sex: MFINAL REPORT RAD, [...] Estrada Verified Date/Time: 03/10/2022 09:08:22 Reading Location: [facility] Radiology Reading Room BASIC METABOLIC [id number] 06:24:41 Test Item Value Reference Range Interpretation Comments SODIUM (BEAKER) 133 meq/L 136-145 L (test code = 381) POTASSIUM (BEAKER) 3.9 meq/L 3.5-5.1 (test code = 379) CHLORIDE (BEAKER) 97 meq/L 98-107 L (test code = 382) CO2 (BEAKER) (test 26 meq/L - code = 355) BLOOD UREA NITROGEN 11 [...] S NOT APPLICABLE FOR DIALYSIS PATIEN TS. Wooden Box Maker ID - CHRIS [id number] 06:24:41 Test Item Value Reference Range Interpretation Comments MAGNESIUM (BEAKER) (test code = 1.8 mg/dL 1.6-2.6 627) Wooden Box Maker ID - CHRIS MHEPATIC FUNCTION [id number] 06:22:42 Test Item Value Reference Range Interpretation [...] code = 69 U/L 6-55 H 347) Wooden Box Maker ID - CHRIS MCBC W/PLT COUNT & AUTO [id number] 05:58:34 Test Item Value Reference Range Interpretation [...] = 2801) RAD, CHEST, 1 VIEW, NON [id number] 08:39:00Reason for exam:->s/p [facility] : 2000 Sex: MFINAL REPORT RAD, [...] Bones: Unchanged. Signed: Jennifer Estrada Verified Date/Time: 03/09/2022 08:39:01 Reading Location: [facility] Radiology Reading Room MAGNESIUM 2022-03-09 06:46:57 Test Item Value Reference Range Interpretation Comments MAGNESIUM (BEAKER) (test code = 1.8 mg/dL 1.6-2.6 627) Wooden Box Maker ID - PIAYA LBASIC METABOLIC [id number] 06:46:56 Test Item Value Reference Range Interpretation [...] S NOT APPLICABLE FOR DIALYSIS PATIEN TS. Wooden Box Maker ID - PIAYA LCBC W/PLT COUNT & AUTO [id number] 05:36:42 Test Item Value Reference Range Interpretation [...] PERCENT (BEAKER) (test code = 2801) SARS-COV2/RT-PCR ([facility])2022-03-09 01:55:48 Test Item Value Reference Range Interpretation Comments SARS-COV2/RT-PCR (test Negative Not Detected, Negative, code = 6904889) See external report for linked test SARS-COV-2 PERFORMING LAB [facility] (test code = 7453224) Negative result for this test determines that [...] 564(g) of the Act.Fact Sheet for Healthcare Pro viders:https://www.[employer]/sites/default/files/product/documents/Fact_Sheet_H G_Yktciuzno_Bgdy_KJLU-ZmX-7.pdfFact Sheet for Healthcare Patients:https://www.[employer]/sites/default/files/product/docum ents/Wfck_Likwi_Dnbveolt_Vqqt_JFLA-FcL-4.pdfPerforming Laboratory:[facility] [address], [place] [address]Lsipwlrek culture 2022-03-08 11:47:33 Test Item Value Reference Range Interpretation Comments Result (test code = No anaerobes isolated 6463-4) [facility] [id number] 11:47:33 Test Item Value Reference Range Interpretation Comments Result (test code = No anaerobes isolated 6463-4) [facility] [id number] 11:47:33 Test Item Value Reference Range Interpretation Comments Result (test code = No anaerobes isolated 6463-4) [facility] [id number] 11:47:33 Test Item Value Reference Range Interpretation Comments CULTURE (BEAKER) (test No anaerobes isolated code = 1095) ANAEROBIC [id number] 11:47:26 Test Item Value Reference Range Interpretation Comments CULTURE (BEAKER) (test No anaerobes isolated code = 1095) RAD, CHEST, 1 VIEW, NON [id number] 07:45:00Reason for exam:->s/p [facility] : 2000 Sex: MFINAL REPORT History: Mitral [...] stable chest. No pneumothorax. Signed: Jaye Edwards MDReport Verified Date/Time: 03/08/2022 07:45:21 Reading Location: [facility] Radiology Reading Room [id number] 06:32:10 Test Item Value Reference Range Interpretation Comments MAGNESIUM (BEAKER) (test code = 1.8 mg/dL 1.6-2.6 627) Wooden Box Maker ID - BSBASIC METABOLIC [id number] 06:32:09 Test Item Value Reference Range Interpretation [...] S NOT APPLICABLE FOR DIALYSIS PATIEN TS. Wooden Box Maker ID - BSCBC W/PLT COUNT & AUTO [id number] 05:38:01 Test Item Value Reference Range Interpretation [...] (BEAKER) (test code = 2801) HEPATIC FUNCTION [id number] 08:48:11 Test Item Value Reference Range Interpretation [...] code = 74 U/L 6-55 H 347) Wooden Box Maker ID - [id number] 06:26:39 Test Item Value Reference Range Interpretation Comments MAGNESIUM (BEAKER) (test code = 1.8 mg/dL 1.6-2.6 627) Wooden Box Maker ID - BSBASIC METABOLIC [id number] 06:26:38 Test Item Value Reference Range Interpretation [...] S NOT APPLICABLE FOR DIALYSIS PATIEN TS. Wooden Box Maker ID - BSCBC W/PLT COUNT & AUTO [id number] 06:08:09 Test Item Value Reference Range Interpretation [...] = 2801) RAD, CHEST, 1 VIEW, NON [id number] 04:39:00Reason for exam:->s/p [facility] : 2000 Sex: MFINAL REPORT CLINICAL [...] (test code = in chains, pairs and 00057) clusters Surgically obtained culture + gram [id number] 14:42:55 Test Item Value Reference Range Interpretation Comments Result (test code = 6463-4) No growth Gram Stain Result (test No organisms seen code = 1123) [facility] + gram [id number] 14:42:55 Test Item Value Reference Range Interpretation Comments Result (test code = 6463-4) No growth Gram Stain Result (test No organisms seen code = 1123) [facility] Hospitalurgically obtained culture + gram [id number] 14:42:55 Test Item Value Reference Range Interpretation Comments Result (test code = 6463-4) No growth Gram Stain Result (test No organisms seen code = 1123) [facility] HospitalURGICALLY OBTAINED CULTURE + GRAM [id number] 14:42:55 Test Item Value Reference Range Interpretation Comments CULTURE (BEAKER) (test code No growth = 1095) GRAM STAIN RESULT (BEAKER) <1+ WBCs (test code = 1123) GRAM STAIN RESULT (BEAKER) No organisms seen (test code = 93304) RAD, CHEST, 1 VIEW, NON [id number] 11:29:00Reason for exam:->post picc line insertionShould this be performed at the bedside?->Yes [facility] : 2000 Sex: MFINAL REPORT EXAM: [...] osseous structures are unremarkable. Signed: Giovana Weiner Verified Date/Time: 03/06/2022 11:29:22 Reading Location: [facility] Radiology Reading Room OMYCIN LEVEL, [id number] 09:39:01 Test Item Value Reference Range Interpretation Comments VANCOMYCIN TROUGH (BEAKER) (test code < ug/mL 10.0-20.0 L = 522) Wooden Box Maker ID - ADMINArterial Doppler Arm, [id number] 09:02:42Ejection FractionSLEH ECHO [facility] CenterAr[facility], [id number] 09:02:42Ejection FractionSLEH ECHO [facility], [id number] 09:02:42Ejection FractionSLE [facility]CHO [facility], [facility]LOOD (ISOLATOR)2022-03-06 09:00:02 Test Item Value Reference Range Interpretation Comments CULTURE (KACIAKER) (test No fungus isolated code = 1095) RAD, CHEST, 1 VIEW, NON [id number] 07:36:00Reason for exam:->s/p [facility]VR [facility] 2000 Sex: MFINAL REPORT RAD, CHEST, [...] None. Signed: Christi Bhatti MDReport Verified Date/Time: 03/06/2022 07:36:21 Reading Location: [facility] Radiology Reading Room CBC W/PLT COUNT & AUTO [id number] 07:08:24 Test Item Value Reference Range Interpretation [...] 0-1 PERCENT (BEAKER) (test code = 2801) [id number] 06:55:08 Test Item Value Reference Range Interpretation Comments MAGNESIUM (BEAKER) (test code = 1.7 mg/dL 1.6-2.6 627) Wooden Box Maker ID Christopher BARRY WBASIC METABOLIC [id number] 06:55:07 Test Item Value Reference Range Interpretation [...] S NOT APPLICABLE FOR DIALYSIS PATIEN TS. Wooden Box Maker ID Christopher BARRY W2D Echo W/Doppler(CW/PW/Color)2022-03-05 15:35:30Ejection FractionSLEH ECHO HEARTLAB MKCKESSON [facility]2D Echo W/Doppler(CW/PW/Color)2022-03-05 15:35:30Ejection FractionSLEH ECHO HEARTLAB MKCKESSON [facility] Z[facility]zjg1[facility] Echo W/Doppler(CW/PW/Color) 2022-03-05 15:35:30Ejection FractionSLEH ECHO HEARTLAB [facility] HospitalBlood [facility], [id number] 04:49:58 Test Item Value Reference Range Interpretation Comments pH, Arterial (test code 7.47 7.35-7.45 H = 2744-1) pCO2, Arterial (test 38 See_Comment [Autom ated message] code = 2019-06) The system [facility] generated this result transmit zach reference range : 35 - 45 mm Hg. The reference range was not used to interpret this result as normal/abnormal . pO2, Arterial (test 158 See_Comment H [Automa zach message] code = 2703-7) The system [employer] generated this result transmit zach reference range [...] 21 Lab Interpretation Abnormal (test code = 78887-5) [facility] HospitalBlood [facility], [id number] 04:49:58 Test Item Value Reference Range Interpretation Comments pH, Arterial (test code 7.47 7.35-7.45 H = 2744-1) pCO2, Arterial (test 38 See_Comment [Autom ated message] code = 2019-06) The system [employer] generated this result transmit zach reference range : 35 - 45 mm Hg. The reference range was not used to interpret this result as normal/abnormal . pO2, Arterial (test 158 See_Comment H [Automa zach message] code = 2703-7) The system [employer] generated this result transmit zach reference range [...] 21 Lab Interpretation Abnormal (test code = 36292-8) [facility] HospitalBlood [facility], [id number] 04:49:58 Test Item Value Reference Range Interpretation Comments pH, Arterial (test code 7.47 7.35-7.45 H = 2744-1) pCO2, Arterial (test 38 See_Comment [Autom ated message] code = 2019-8) The system [employer] generated this result transmit zach reference range : 35 - 45 mm Hg. The reference range was not used to interpret this result as normal/abnormal . pO2, Arterial (test 158 See_Comment H [Automa zach message] code = 2703-7) The system [employer] generated this result transmit zach reference range [...] 21 Lab Interpretation Abnormal (test code = 11463-5) [facility] GAS, [id number] 04:49:58 Test Item Value Reference Range Interpretation [...] 21-29 = 388) BASE EXCESS ARTERIAL (BEAKER) 3.1 mmol/L -2.0-3.0 H (test code = 387) PATIENT TEMPERATURE (BEAKER) (test 37.0 code = 1818) FIO2 (BEAKER) (test code = 1819) 21.0 CALCIUM, [id number] 04:44:55 Test Item Value Reference Range Interpretation Comments CALCIUM IONIZED (BEAKER) (test 1.12 mmol/L 1.12-1.27 code = 698) PH, BLOOD (BEAKER) (test code = 7.47 1810) [id number] 04:40:55 Test Item Value Reference Range Interpretation Comments PHOSPHORUS (BEAKER) (test code = 2.6 mg/dL 2.3-4.7 604) Wooden Box Maker ID - CLIVE [id number] 04:40:54 Test Item Value Reference Range Interpretation Comments MAGNESIUM (BEAKER) (test code = 1.8 mg/dL 1.6-2.6 627) Wooden Box Maker ID - CLIVE GBASIC METABOLIC [id number] 04:40:53 Test Item Value Reference Range Interpretation [...] S NOT APPLICABLE FOR DIALYSIS PATIEN TS. Wooden Box Maker ID - CLIVE GHEPATIC FUNCTION [id number] 04:37:34 Test Item Value Reference Range Interpretation [...] code = 102 U/L 6-55 H 347) Wooden Box Maker ID - CLIVE GCBC W/PLT COUNT & AUTO [id number] 04:36:26 Test Item Value Reference Range Interpretation [...] H PERCENT (BEAKER) (test code = 2801) [id number] 04:25:05 Test Item Value Reference Range Interpretation Comments PARTIAL THROMBOPLASTIN TIME 34.4 seconds 22.5-36.0 (BEAKER) (test code = 760) PROTHROMBIN TIME/[id number] 04:24:26 Test Item Value Reference Range Interpretation Comments PROTIME (BEAKER) 16.3 seconds 11.9-14.2 H (test code = 759) INR (BEAKER) (test 1.33 See_Comment [Automat ed message] code = 370) The system [employer] generated this result transmitted ref erence range: <=5.90. The reference range was not used to int erpret this result as normal/abnormal . RECOMMENDED COUMADIN/WARFARIN INR THERAPY RANGESSTANDARD DOSE: 2.0 - 3.0 Includes: PROPHYLAXIS for venous thrombosis, systemic embolization; TREATMENT for venous thrombosis and/or pulmonary embolus.HIGH RISK: Target INR is 2.5-3.5 for patients with mechanical heart valves.RAD, CHEST, 1 VIEW, NON [id number] 02:29:00Reason for exam:->s/p MVR [facility] 2000 Sex: MFINAL REPORT EXAM: [...] V erified Date/Time: 03/05/2022 02:29:51 Prepare Leuko-Red [id number] 23:55:00 Test Item Value Reference Range Interpretation Comments CROSSMATCH (test code = 2264) COMPATIBLE Unit ABO (test code = O Pos 2027235) UNIT NUMBER (test code = [id number] 934-0) Status (test code = 4289185) READY Blood Bank Product (test code RED BLOOD CELLS = 2263) PRODUCT CODE (test code = T8385D25 933-2) [facility] Hospital[facility] Leuko-Red [id number] 23:55:00 Test Item Value Reference Range Interpretation Comments CROSSMATCH (test code = 2264) COMPATIBLE Unit ABO (test code = O Pos 9332622) UNIT NUMBER (test code = [id number] 934-0) Status (test code = 5684499) READY Blood Bank Product (test code RED BLOOD CELLS = 2263) PRODUCT CODE (test code = V8167S30 933-2) [facility] Hospital[facility] Leuko-Red [id number] 23:55:00 Test Item Value Reference Range Interpretation Comments CROSSMATCH (test code = 2264) COMPATIBLE Unit ABO (test code = O Pos 0509041) UNIT NUMBER (test code = [id number] 934-0) Status (test code = 9492053) READY Blood Bank Product (test code RED BLOOD CELLS = 2263) PRODUCT CODE (test code = J9303M51 933-2) [facility] HospitalBASI METABOLIC [id number] 06:50:52 Test Item Value Reference Range Interpretation [...] S NOT APPLICABLE FOR DIALYSIS PATIEN TS. Wooden Box Maker ID - BSVANCOMYCIN LEVEL, [id number] 06:47:28 Test Item Value Reference Range Interpretation Comments VANCOMYCIN TROUGH (BEAKER) (test code < ug/mL 10.0-20.0 L = 522) Wooden Box Maker ID - BSHEPATIC FUNCTION [id number] 06:46:08 Test Item Value Reference Range Interpretation [...] code = 126 U/L 6-55 H 347) Wooden Box Maker ID - [id number] 06:46:07 Test Item Value Reference Range Interpretation Comments MAGNESIUM (BEAKER) (test code = 2.0 mg/dL 1.6-2.6 627) Wooden Box Maker ID - [id number] 06:46:07 Test Item Value Reference Range Interpretation Comments PHOSPHORUS (BEAKER) (test code = 2.4 mg/dL 2.3-4.7 604) Wooden Box Maker ID - [id number] 05:43:17 Test Item Value Reference Range Interpretation Comments PARTIAL THROMBOPLASTIN TIME 33.3 seconds 22.5-36.0 (BEAKER) (test code = 760) PROTHROMBIN TIME/[id number] 05:42:34 Test Item Value Reference Range Interpretation Comments PROTIME (BEAKER) 17.4 seconds 11.9-14.2 H (test code = 759) INR (BEAKER) (test 1.45 See_Comment [Automat ed message] code = 370) The system [employer] generated this result transmitted ref erence range: <=5.90. The reference range was not used to int erpret this result as normal/abnormal . RECOMMENDED COUMADIN/WARFARIN INR THERAPY RANGESSTANDARD DOSE: 2.0 - 3.0 Includes: PROPHYLAXIS for venous thrombosis, systemic embolization; TREATMENT for venous thrombosis and/or pulmonary embolus.HIGH RISK: Target INR is 2.5-3.5 for patients with mechanical heart valves.CBC W/PLT COUNT & AUTO [id number] 05:39:13 Test Item Value Reference Range Interpretation [...] (BEAKER) (test code = 2801) BLOOD GAS, [id number] 05:28:53 Test Item Value Reference Range Interpretation [...] (BEAKER) (test code = 1819) 21.0 CALCIUM, [id number] 05:26:14 Test Item Value Reference Range Interpretation Comments CALCIUM IONIZED (BEAKER) (test 1.15 mmol/L 1.12-1.27 code = 698) PH, BLOOD (BEAKER) (test code = 7.49 1810) RAD, CHEST, 1 VIEW, NON [id number] 04:09:00Reason for exam:->s/p [facility]VR [facility] : 2000 Sex: MFINAL REPORT [...] right chest tube, are stable. Signed: Sudeep Mitchell Verified Date/Time: 03/04/2022 04:09:17 Prepare [id number] 23:56:00 Test Item Value Reference Range Interpretation Comments Unit ABO (test code = 8052003) O Pos UNIT NUMBER (test code = [id number] 934-0) Status (test code = 1229748) TX_TIMEINCHART Blood Bank Product (test code FFP = 2263) PRODUCT CODE (test code = G8680H41 933-2) [facility] Hospital[facility] [id number] 23:56:00 Test Item Value Reference Range Interpretation Comments Unit ABO (test code = 0529852) O Pos UNIT NUMBER (test code = [id number] 934-0) Status (test code = 3408148) TX_TIMEINCHART Blood Bank Product (test code FFP = 2263) PRODUCT CODE (test code = R2951B27 933-2) [facility] HospitalPrepare [id number] 23:56:00 Test Item Value Reference Range Interpretation Comments Unit ABO (test code = 3854998) O Pos UNIT NUMBER (test code = [id number] 934-0) Status (test code = 1390391) TX_TIMEINCHART Blood Bank Product (test code FFP = 2263) PRODUCT CODE (test code = X4534U36 933-2) [facility] W/PLT COUNT & AUTO [id number] 20:47:38 Test Item Value Reference Range Interpretation [...] 0-0 (BEAKER) (test code = 413) POC-Glucose [id number] 18:59:54 Test Item Value Reference Range Interpretation Comments POC-Glucose Meter (test 152 mg/dL 70-110 H : TE STED AT [facility] code = 1538) [address] [place] [address], [address]: Wooden Box Maker/Techni pola ID = [id number] for Water And Fire Technician (contrac t), [facility] Interpretation (test Abnormal code = 27725-8) [place] [facility]-Glucose [id number] 18:59:54 Test Item Value Reference Range Interpretation Comments POC-Glucose Meter (test 152 mg/dL 70-110 H : TE STED AT [facility] code = 1538) [address] [place] [address], [address]: Wooden Box Maker/Techni pola ID = [id number] for Water And Fire Technician (contrac t), [facility] Interpretation (test Abnormal code = 92628-0) [place] [facility]-Glucose [id number] 18:59:54 Test Item Value Reference Range Interpretation Comments POC-Glucose Meter (test 152 mg/dL 70-110 H : TE STED AT [facility] code = 1538) [address] [place] [address], [address]: Wooden Box Maker/Techni pola ID = [id number] for Water And Fire Technician (contrac t), [facility] Interpretation (test Abnormal code = 91322-7) [facility]-GLUCOSE [id number] 18:59:54 Test Item Value Reference Range Interpretation Comments POC-GLUCOSE METER 152 mg/dL 70-110 H : TESTED A T [facility] 6720 (BEAKER) (test code = [facility], 1538) [address]: Wooden Box Maker/Techni pola ID = [id number] for Pr iest (contract), Vijay helle POCT-GLUCOSE [id number] 13:44:11 Test Item Value Reference Range Interpretation Comments POC-GLUCOSE METER 138 mg/dL 70-110 H : TESTED A T [facility] 6720 (BEAKER) (test code = [place], 1538) [address]: Wooden Box Maker/Techni pola ID = [id number] for Pr iest (contract), Vijay helle Lactic Acid, [id number] 09:30:53 Test Item Value Reference Range Interpretation Comments Lactate, Art (test 2.9 mmol/L 0.5-2.2 H Specimen code = 2874) slightly hemolyzed TOR (test code = TOR) Wooden Box Maker ID - BS Lab Interpretation Abnormal (test code = 62771-4) [facility] HospitalLactic Acid, [id number] 09:30:53 Test Item Value Reference Range Interpretation Comments Lactate, Art (test 2.9 mmol/L 0.5-2.2 H Specimen code = 2874) slightly hemolyzed TOR (test code = TOR) Wooden Box Maker ID - BS Lab Interpretation Abnormal (test code = 73788-6) [facility] HospitalLactic Acid, [id number] 09:30:53 Test Item Value Reference Range Interpretation Comments Lactate, Art (test 2.9 mmol/L 0.5-2.2 H Specimen code = 2874) slightly hemolyzed TOR (test code = TOR) Wooden Box Maker ID - BS Lab Interpretation Abnormal (test code = 21393-2) [facility] HospitalLACTIC ACID, [id number] 09:30:53 Test Item Value Reference Range Interpretation Comments LACTATE BLOOD 2.9 mmol/L 0.5-2.2 H Specimen sligh tly ARTERIAL (2) (BEAKER) hemoly zed (test code = 2874) Wooden Box Maker ID - BSCBC (HEMOGRAM ONLY)2022-03-03 08:47:52 Test [...] (BEAKER) (test code = 413) BLOOD GAS, [id number] 08:34:41 Test Item Value Reference Range Interpretation [...] 1819) 21.0 RAD, CHEST, 1 VIEW, NON [id number] 08:34:00Reason for exam:->Evaluate for effusionShould this be performed at the bedside?->Yes [facility] 2000 Sex: MFINAL REPORT Chest, one view HISTORY: Pleural effusion Comparison: 03/03/2022, earlier study Findings: Lungs: The underlying lungs are clear. Heart: Normal in size. Pleura: Small right pleural effusion, unchanged from prior exam. No pneumothorax is apparent. Bones: Unremarkable. Lines/tubes: Unchanged in position. Signed: Lazarus Massey Verified Date/Time: 03/03/2022 08:34 :15 Reading Location: [facility] Radiology Reading Room ANTI-MITOCHONDRIAL AB, REFLEX TO [id number] 07:48:56 Test Item Value Reference Range Interpretation Comments SCAN RESULT (test code = 3900322) (CELLAVISION MANUAL DIFF)2022-03-03 07:14:52 Test Item Value [...] CONCENTRATION Decreased (CELLAVISION)(BEAKER) (test code = 3438) Wooden Box Maker ID - duane Recinos comments: Slide comments:CBC W/PLT COUNT & AUTO [id number] 07:14:50 Test Item Value Reference Range Interpretation [...] (test code = 413) TSH/FREE T4 IF [id number] 06:11:11 Test Item Value Reference Range Interpretation Comments THYROID STIMULATING HORMONE 2.794 uIU/mL 0.350-4.940 (BEAKER) (test code = 772) Wooden Box Maker ID - BSHEPATIC FUNCTION [id number] 05:50:04 Test Item Value Reference Range Interpretation [...] code = 160 U/L 6-55 H 347) Wooden Box Maker ID - [id number] 05:50:03 Test Item Value Reference Range Interpretation Comments MAGNESIUM (BEAKER) (test code = 2.2 mg/dL 1.6-2.6 627) Wooden Box Maker ID - [id number] 05:50:03 Test Item Value Reference Range Interpretation Comments PHOSPHORUS (BEAKER) (test code = 2.6 mg/dL 2.3-4.7 604) Wooden Box Maker ID - BSBASIC METABOLIC [id number] 05:50:02 Test Item Value Reference Range Interpretation [...] S NOT APPLICABLE FOR DIALYSIS PATIEN TS. Wooden Box Maker ID - BSLACTIC ACID, [id number] 05:38:12 Test Item Value Reference Range Interpretation Comments LACTATE BLOOD ARTERIAL (2) 3.8 mmol/L 0.5-2.2 H (BEAKER) (test code = 2874) Wooden Box Maker ID - BSPROTHROMBIN TIME/[id number] 05:31:13 Test Item Value Reference Range Interpretation Comments PROTIME (BEAKER) 17.9 seconds 11.9-14.2 H (test code = 759) INR (BEAKER) (test 1.51 See_Comment [Automat ed message] code = 370) The system [employer] generated this result transmitted ref erence range: <=5.90. The reference range was not used to int erpret this result as normal/abnormal . RECOMMENDED COUMADIN/WARFARIN INR THERAPY RANGESSTANDARD DOSE: 2.0 - 3.0 Includes: PROPHYLAXIS for venous thrombosis, systemic embolization; TREATMENT for venous thrombosis and/or pulmonary embolus.HIGH RISK: Target INR is 2.5-3.5 for patients with mechanical heart valves.CALCIUM, [id number] 04:48:17 Test Item Value Reference Range Interpretation Comments CALCIUM IONIZED (BEAKER) (test 1.12 mmol/L 1.12-1.27 code = 698) PH, BLOOD (BEAKER) (test code = 7.49 1810) Sodium Na-Stat [id number] 04:48:03 Test Item Value Reference Range Interpretation Comments Sodium (test code = 2951-2) 142 meq/L 136-145 Lab Interpretation (test code = Normal 11475-3) [facility]Stat [id number] 04:48:03 Test Item Value Reference Range Interpretation Comments Sodium (test code = 2951-2) 142 meq/L 136-145 Lab Interpretation (test code = Normal 62296-4) [facility] Hospital[facility] Na-Stat [id number] 04:48:03 Test Item Value Reference Range Interpretation Comments Sodium (test code = 2951-2) 142 meq/L 136-145 Lab Interpretation (test code = Normal 39019-9) [facility] HospitalODIUM NA-STAT [id number] 04:48:03 Test Item Value Reference Range Interpretation Comments SODIUM (BEAKER) (test code = 381) 142 meq/L 136-145 HGB/HCT (H&H)-Stat [id number] 04:47:05 Test Item Value Reference Range Interpretation Comments Hemoglobin (test code = 8.0 See_Comment L [Au tomated message] 786-4) The system [employer] generated this result transmitted ref erence range: 13.0 - 1 6.8 GM/DL. The refe rence range was not u sed to interpret this result as normal/abnor mal. Hematocrit (test code = 24.0 % 40.0-50.0 L 4544-3) Lab Interpretation (test Abnormal code = 84461-3) [facility] HospitalHGB/HCT (H&H)-Stat [id number] 04:47:05 Test Item Value Reference Range Interpretation Comments Hemoglobin (test code = 8.0 See_Comment L [Au tomated message] 786-4) The system [employer] generated this result transmitted ref erence range: 13.0 - 1 6.8 GM/DL. The refe rence range was not u sed to interpret this result as normal/abnor mal. Hematocrit (test code = 24.0 % 40.0-50.0 L 4544-3) Lab Interpretation (test Abnormal code = 90278-9) [facility] HospitalHGB/HCT (H&H)-Stat [id number] 04:47:05 Test Item Value Reference Range Interpretation Comments Hemoglobin (test code = 8.0 See_Comment L [Au tomated message] 786-4) The system [employer] generated this result transmitted ref erence range: 13.0 - 1 6.8 GM/DL. The refe rence range was not u sed to interpret this result as normal/abnor mal. Hematocrit (test code = 24.0 % 40.0-50.0 L 4544-3) Lab Interpretation (test Abnormal code = 22589-4) [facility] HospitalHGB/HCT (H&H) - STAT [id number] 04:47:05 Test Item Value Reference Range Interpretation Comments HEMOGLOBIN (BEAKER) (test code = 8.0 GM/DL 13.0-16.8 L 410) HEMATOCRIT (BEAKER) (test code = 24.0 % 40.0-50.0 L 411) Glucose-Stat [id number] 04:47:04 Test Item Value Reference Range Interpretation Comments Glucose (test code = 2345-7) 198 mg/dL 70-110 H Lab Interpretation (test code = Abnormal 10262-1) [facility] HospitalPotassium-Stat [id number] 04:47:04 Test Item Value Reference Range Interpretation Comments Potassium (test code = 2823-3) 3.5 meq/L 3.6-5.5 L Lab Interpretation (test code = Abnormal 96408-0) [facility] HospitalGlucose-Stat [id number] 04:47:04 Test Item Value Reference Range Interpretation Comments Glucose (test code = 2345-7) 198 mg/dL 70-110 H Lab Interpretation (test code = Abnormal 28324-0) [facility] HospitalPotassium-Stat [id number] 04:47:04 Test Item Value Reference Range Interpretation Comments Potassium (test code = 2823-3) 3.5 meq/L 3.6-5.5 L Lab Interpretation (test code = Abnormal 68674-2) [facility] HospitalGlucose-Stat [id number] 04:47:04 Test Item Value Reference Range Interpretation Comments Glucose (test code = 2345-7) 198 mg/dL 70-110 H Lab Interpretation (test code = Abnormal 34046-2) [facility] HospitalPotassium-Stat [id number] 04:47:04 Test Item Value Reference Range Interpretation Comments Potassium (test code = 2823-3) 3.5 meq/L 3.6-5.5 L Lab Interpretation (test code = Abnormal 24891-2) [facility] HospitalPOTASSIUM-STAT [id number] 04:47:04 Test Item Value Reference Range Interpretation Comments POTASSIUM (BEAKER) (test code = 3.5 meq/L 3.6-5.5 L 379) GLUCOSE-STAT [id number] 04:47:04 Test Item Value Reference Range Interpretation Comments GLUCOSE RANDOM (BEAKER) (test code 198 mg/dL 70-110 H = 652) BLOOD GAS, [id number] 04:47:03 Test Item Value Reference Range Interpretation [...] 1819) 40.0 RAD, CHEST, 1 VIEW, NON [id number] 04:25:00while patient is intubated or has chest tubes.Reason for exam:->Status post CV SurgeryShould thisbe performed at the bedside?->Yes [facility] 2000 Sex: MFINAL REPORT CLINICAL INDICATION: Status post CV Surgery Comparison: 03/02/2022 at 2121 hours There is decreasing pneumopericardium. The cardiomediastinal contours are otherwise stable. Bilateral parenchymal and right pleural opacities are similar to previous. There is no pneumothorax. Support lines are stable. Signed: Sudeep Mitchell MDReport Verified Date/Time: 03/03/2022 04:25:58 /HCT (H&H) - STAT [id number] 03:00:35 Test Item Value Reference Range Interpretation Comments HEMOGLOBIN (BEAKER) (test code = 8.4 GM/DL 13.0-16.8 L 410) HEMATOCRIT (BEAKER) (test code = 25.0 % 40.0-50.0 L 411) BLOOD GAS, [id number] 03:00:34 Test Item Value Reference Range Interpretation [...] (BEAKER) (test code = 1819) 40.0 GLUCOSE-STAT [id number] 03:00:34 Test Item Value Reference Range Interpretation Comments GLUCOSE RANDOM (BEAKER) (test code 202 mg/dL 70-110 H = 652) SODIUM NA-STAT [id number] 02:56:45 Test Item Value Reference Range Interpretation Comments SODIUM (BEAKER) (test code = 381) 140 meq/L 136-145 POTASSIUM-STAT [id number] 02:56:45 Test Item Value Reference Range Interpretation Comments POTASSIUM (BEAKER) (test code = 3.6 meq/L 3.6-5.5 379) [id number] 01:36:12 Test Item Value Reference Range Interpretation Comments PARTIAL THROMBOPLASTIN TIME 32.3 seconds 22.5-36.0 (BEAKER) (test code = 760) LACTIC ACID, [id number] 01:32:32 Test Item Value Reference Range Interpretation Comments LACTATE BLOOD 7.0 mmol/L 0.5-2.2 HH Specimen sligh tly ARTERIAL (2) (BEAKER) hemoly zed (test code = 2874) Wooden Box Maker ID - BSGLUCOSE-STAT [id number] 00:53:10 Test Item Value Reference Range Interpretation Comments GLUCOSE RANDOM (BEAKER) (test code 199 mg/dL 70-110 H = 652) HGB/HCT (H&H) - STAT [id number] 00:53:10 Test Item Value Reference Range Interpretation Comments HEMOGLOBIN (BEAKER) (test code = 9.1 GM/DL 13.0-16.8 L 410) HEMATOCRIT (BEAKER) (test code = 27.0 % 40.0-50.0 L 411) BLOOD GAS, [id number] 00:53:09 Test Item Value Reference Range Interpretation [...] (BEAKER) (test code = 1819) 40.0 POTASSIUM-STAT [id number] 00:51:53 Test Item Value Reference Range Interpretation Comments POTASSIUM (BEAKER) (test code = 3.6 meq/L 3.6-5.5 379) SODIUM NA-STAT [id number] 00:51:52 Test Item Value Reference Range Interpretation [...] CONCENTRATION Adequate (CELLAVISION)(BEAKER) (test code = 3438) Wooden Box Maker ID - Jessica Salazar comments: Slide comments:[id number] 22:12:06 Test Item Value Reference Range Interpretation Comments PHOSPHORUS (BEAKER) (test code = 4.8 mg/dL 2.3-4.7 H 604) Wooden Box Maker ID - [id number] 22:12:05 Test Item Value Reference Range Interpretation Comments MAGNESIUM (BEAKER) (test code = 2.5 mg/dL 1.6-2.6 627) Wooden Box Maker ID - BSCOMPREHENSIVE METABOLIC [id number] 22:12:04 Test Item Value Reference Range Interpretation [...] S NOT APPLICABLE FOR DIALYSIS PATIEN TS. Wooden Box Maker ID - [id number] 22:00:19 Test Item Value Reference Range Interpretation Comments PARTIAL THROMBOPLASTIN TIME 31.4 seconds 22.5-36.0 (BEAKER) (test code = 760) [id number] 22:00:18 Test Item Value Reference Range Interpretation Comments FIBRINOGEN LEVEL (BEAKER) (test 274 mg/dl 225-434 code = 658) PROTHROMBIN TIME/[id number] 21:59:43 Test Item Value Reference Range Interpretation Comments PROTIME (BEAKER) 21.6 seconds 11.9-14.2 H (test code = 759) INR (BEAKER) (test 1.91 See_Comment [Automat ed message] code = 370) The system [employer] generated this result transmitted ref erence range: <=5.90. The reference range was not used to int erpret this result as normal/abnormal . RECOMMENDED COUMADIN/WARFARIN INR THERAPY RANGESSTANDARD DOSE: 2.0 - 3.0 Includes: PROPHYLAXIS for venous thrombosis, systemic embolization; TREATMENT for venous thrombosis and/or pulmonary embolus.HIGH RISK: Target INR is 2.5-3.5 for patients with mechanical heart valves.LACTIC ACID, [id number] 21:58:19 Test Item Value Reference Range Interpretation Comments LACTATE BLOOD ARTERIAL (2) 5.4 mmol/L 0.5-2.2 HH (BEAKER) (test code = 2874) Wooden Box Maker ID - BSPrepare [id number] 21:52:00 Test Item Value Reference Range Interpretation Comments CROSSMATCH (test code = COMPATIBLE 4) Unit ABO (test code = O Pos 2438743) UNIT NUMBER (test code = [id number] 934-0) Status (test code = RETURNED FROM ISSUE 15110128) Blood Bank Product (test RED BLOOD CELLS code = 2263) PRODUCT CODE (test code = H1571Z12 933-2) [facility] HospitalPre[facility] [id number] 21:52:00 Test Item Value Reference Range Interpretation Comments CROSSMATCH (test code = COMPATIBLE 4) Unit ABO (test code = O Pos 8328364) UNIT NUMBER (test code = [id number] 934-0) Status (test code = RETURNED FROM ISSUE 15110128) Blood Bank Product (test RED BLOOD CELLS code = 2263) PRODUCT CODE (test code = L7396V77 933-2) [facility] [id number] 21:52:00 Test Item Value Reference Range Interpretation Comments CROSSMATCH (test code = COMPATIBLE 4) Unit ABO (test code = O Pos 5946241) UNIT NUMBER (test code = [id number] 934-0) Status (test code = RETURNED FROM ISSUE 15110128) Blood Bank Product (test RED BLOOD CELLS code = 2263) PRODUCT CODE (test code = M4405M64 933-2) [facility] W/PLT COUNT & AUTO [id number] 21:50:51 Test Item Value Reference Range Interpretation [...] = 413) RAD, CHEST, 1 VIEW, NON [id number] 21:49:00Reason for exam:->s/p MVRShould this be performed at the bedside?->Yes [facility] 2000 Sex: MFINAL REPORT CLINICAL [...] Mitchell MDReport Verified Date/Time: 03/02/2022 21:49:17 OSE-STAT [id number] 21:44:39 Test Item Value Reference Range Interpretation Comments GLUCOSE RANDOM (BEAKER) (test code 194 mg/dL 70-110 H = 652) HGB/HCT (H&H) - STAT [id number] 21:44:39 Test Item Value Reference Range Interpretation Comments HEMOGLOBIN (BEAKER) (test code = 9.3 GM/DL 13.0-16.8 L 410) HEMATOCRIT (BEAKER) (test code = 27.0 % 40.0-50.0 L 411) BLOOD GAS, [id number] 21:44:38 Test Item Value Reference Range Interpretation [...] (BEAKER) (test code = 1819) 60.0 POTASSIUM-STAT [id number] 21:44:03 Test Item Value Reference Range Interpretation Comments POTASSIUM (BEAKER) (test code = 4.0 meq/L 3.6-5.5 379) CALCIUM, [id number] 21:44:03 Test Item Value Reference Range Interpretation Comments CALCIUM IONIZED (BEAKER) (test 1.19 mmol/L 1.12-1.27 code = 698) PH, BLOOD (BEAKER) (test code = 7.34 1810) OXYGEN SATURATION, [id number] 21:44:02 Test Item Value Reference Range Interpretation Comments O2 SATURATION (MEASURED) (BEAKER) 96.4 % (test code = 1455) SODIUM NA-STAT [id number] 21:44:02 Test Item Value Reference Range Interpretation Comments SODIUM (BEAKER) (test code = 381) 139 meq/L 136-145 POC ACTIVATED CLOTTING [id number] 21:13:20 Test Item Value Reference Range Interpretation Comments Activated Clotting Time 112 sec : 74 -137 seconds, (test code = 441) Baseline: TESTED AT [address], [address]: Wooden Box Maker/Techni pola ID = [id number] for Kate Henning [place] [facility] ACTIVATED CLOTTING [id number] 21:13:20 Test Item Value Reference Range Interpretation Comments Activated Clotting Time 112 sec : 74 -137 seconds, (test code = 441) Baseline: TESTED AT [address], [address]: Wooden Box Maker/Techni pola ID = [id number] for Arnaud Ruggiero, Kate [place] [facility] ACTIVATED CLOTTING [id number] 21:13:20 Test Item Value Reference Range Interpretation Comments Activated Clotting Time 112 sec : 74 -137 seconds, (test code = 441) Baseline: TESTED AT [address], [address]: Wooden Box Maker/Techni pola ID = [id number] for Arnaud Ruggiero, Kate [facility] [id number] 21:13:20 Test Item Value Reference Range Interpretation Comments ACTIVATED CLOTTING TIME 112 sec : 74 -137 seconds, (BEAKER) (test code = Baseli ne: TESTED AT 441) [address], [address]: Wooden Box Maker/Techni pola ID = [id number] for Arnaud Pereirayrlaxmi, Kate [id number] 21:13:20 Test Item Value Reference Range Interpretation Comments ACTIVATED CLOTTING TIME 469 sec : 74 -137 seconds, (BEAKER) (test code = Baseli ne: TESTED AT 441) [address], [address]: Wooden Box Maker/Techni pola ID = [id number] for Arnaud Pereirayre, Kate [id number] 21:12:53 Test Item Value Reference Range Interpretation Comments ACTIVATED CLOTTING TIME 475 sec : 74 -137 seconds, (BEAKER) (test code = Agustin ne: TESTED AT 441) [address], [facility] 30: Wooden Box Maker/Techni pola ID = [id number] for Arnaud Ruggiero, Kate [id number] 21:12:52 Test Item Value Reference Range Interpretation Comments ACTIVATED CLOTTING TIME 553 sec : 74 -137 seconds, (BEAKER) (test code = Sofiai ne: TESTED AT 441) [address], [address]: Wooden Box Maker/Techni pola ID = [id number] for Arnaud Ruggiero, Kate [id number] 21:12:47 Test Item Value Reference Range Interpretation Comments ACTIVATED CLOTTING TIME 571 sec : 74 -137 seconds, (BEAKER) (test code = Sofiai ne: TESTED AT 441) [address], [facility] 30: Wooden Box Maker/Techni pola ID = [id number] for Arnaud Ruggiero, Kate [id number] 21:12:46 Test Item Value Reference Range Interpretation Comments ACTIVATED CLOTTING TIME 309 sec : 74 -137 seconds, (BEAKER) (test code = Sofiai ne: TESTED AT 441) [address], [facility] 30: Wooden Box Maker/Techni pola ID = [id number] for Arnaud Ruggiero Kate [id number] 21:12:17 Test Item Value Reference Range Interpretation Comments ACTIVATED CLOTTING TIME 457 sec : 74 -137 seconds, (BEAKER) (test code = Agustin ne: TESTED AT 441) [address], [facility] 30: Wooden Box Maker/Techni pola ID = [id number] for Kiara Henningvana POTASSIUM-STAT [id number] 20:31:09 Test Item Value Reference Range Interpretation Comments POTASSIUM (BEAKER) (test code = 4.4 meq/L 3.6-5.5 379) CALCIUM, [id number] 20:30:39 Test Item Value Reference Range Interpretation Comments CALCIUM IONIZED (BEAKER) (test 1.02 mmol/L 1.12-1.27 L code = 698) PH, BLOOD (BEAKER) (test code = 7.34 1810) HGB/HCT (H&H) - STAT [id number] 20:30:27 Test Item Value Reference Range Interpretation Comments HEMOGLOBIN (BEAKER) (test code = 9.0 GM/DL 13.0-16.8 L 410) HEMATOCRIT (BEAKER) (test code = 26.0 % 40.0-50.0 L 411) GLUCOSE-STAT [id number] 20:30:21 Test Item Value Reference Range Interpretation Comments GLUCOSE RANDOM (BEAKER) (test code 206 mg/dL 70-110 H = 652) BLOOD GAS, [id number] 20:30:20 Test Item Value Reference Range Interpretation [...] (test code = 1819) 100.0 SODIUM NA-STAT [id number] 20:28:53 Test Item Value Reference Range Interpretation Comments SODIUM (BEAKER) (test code = 381) 137 meq/L 136-145 HGB/HCT (H&H) - STAT [id number] 19:48:28 Test Item Value Reference Range Interpretation Comments HEMOGLOBIN (BEAKER) (test code = 10.0 GM/DL 13.0-16.8 L 410) HEMATOCRIT (BEAKER) (test code = 29.0 % 40.0-50.0 L 411) BLOOD GAS, [id number] 19:48:27 Test Item Value Reference Range Interpretation [...] (BEAKER) (test code = 1819) 65.0 GLUCOSE-STAT [id number] 19:48:27 Test Item Value Reference Range Interpretation Comments GLUCOSE RANDOM (BEAKER) (test code 191 mg/dL 70-110 H = 652) POTASSIUM-STAT [id number] 19:48:16 Test Item Value Reference Range Interpretation Comments POTASSIUM (BEAKER) (test code = 5.2 meq/L 3.6-5.5 379) SODIUM NA-STAT [id number] 19:48:15 Test Item Value Reference Range Interpretation Comments SODIUM (BEAKER) (test code = 381) 144 meq/L 136-145 Lactic acid, [id number] 19:31:08 Test Item Value Reference Range Interpretation Comments Lactate, Venous (test code = 2.64 mmol/L 0.50-2.20 H 2872) TOR (test code = TOR) Wooden Box Maker ID - BS Lab Interpretation (test Abnormal code = 59873-9) [facility] HospitalLactic acid, [id number] 19:31:08 Test Item Value Reference Range Interpretation Comments Lactate, Venous (test code = 2.64 mmol/L 0.50-2.20 H 2872) TOR (test code = TOR) Wooden Box Maker ID - BS Lab Interpretation (test Abnormal code = 13960-1) [facility] HospitalLactic acid, [id number] 19:31:08 Test Item Value Reference Range Interpretation Comments Lactate, Venous (test code = 2.64 mmol/L 0.50-2.20 H 2872) TOR (test code = TOR) Wooden Box Maker ID - BS Lab Interpretation (test Abnormal code = 15677-2) [facility] HospitalLACTIC ACID, [id number] 19:31:08 Test Item Value Reference Range Interpretation Comments LACTATE BLOOD VENOUS (2) (BEAKER) 2.64 mmol/L 0.50-2.20 H (test code = 2872) Wooden Box Maker ID - BSBlood gas, [id number] 19:18:46 Test Item Value Reference Range Interpretation [...] Tal (test code = 24 mmol/L 21-29 81586-9) Base Excess, Tal (test -2.7 mmol/L -2.0-3.0 L code = 1927-3) Patient Temperature 30.1 (test code = 8310-5) FIO2 (test code = 1819) 60 Lab Interpretation Abnormal (test code = 15886-1) [facility] HospitalBlood gas, [id number] 19:18:46 Test Item Value Reference Range Interpretation [...] Tal (test code = 24 mmol/L 21-29 12345-0) Base Excess, Tal (test -2.7 mmol/L -2.0-3.0 L code = 1927-3) Patient Temperature 30.1 (test code = 8310-5) FIO2 (test code = 1819) 60 Lab Interpretation Abnormal (test code = 76872-8) [facility] HospitalBlood gas, [id number] 19:18:46 Test Item Value Reference Range Interpretation [...] Tal (test code = 24 mmol/L 21-29 66908-1) Base Excess, Tal (test -2.7 mmol/L -2.0-3.0 L code = 1927-3) Patient Temperature 30.1 (test code = 8310-5) FIO2 (test code = 1819) 60 Lab Interpretation Abnormal (test code = 15904-3) [facility] GAS, [id number] 19:18:46 Test Item Value Reference Range Interpretation [...] (test code = 1819) 60.0 LACTIC ACID, [id number] 18:47:03 Test Item Value Reference Range Interpretation Comments LACTATE BLOOD VENOUS (2) (BEAKER) 2.12 mmol/L 0.50-2.20 (test code = 2872) Wooden Box Maker ID - ADMINHGB/HCT (H&H) - STAT [id number] 18:41:19 Test Item Value Reference Range Interpretation Comments HEMOGLOBIN (BEAKER) (test code = 9.4 GM/DL 13.0-16.8 L 410) HEMATOCRIT (BEAKER) (test code = 28.0 % 40.0-50.0 L 411) BLOOD GAS, [id number] 18:41:18 Test Item Value Reference Range Interpretation [...] (BEAKER) (test code = 1819) 65.0 GLUCOSE-STAT [id number] 18:41:18 Test Item Value Reference Range Interpretation Comments GLUCOSE RANDOM (BEAKER) (test code 172 mg/dL 70-110 H = 652) POTASSIUM-STAT [id number] 18:41:02 Test Item Value Reference Range Interpretation Comments POTASSIUM (BEAKER) (test code = 4.8 meq/L 3.6-5.5 379) SODIUM NA-STAT [id number] 18:41:01 Test Item Value Reference Range Interpretation Comments SODIUM (BEAKER) (test code = 381) 138 meq/L 136-145 GLUCOSE-STAT [id number] 18:15:11 Test Item Value Reference Range Interpretation Comments GLUCOSE RANDOM (BEAKER) (test code 164 mg/dL 70-110 H = 652) HGB/HCT (H&H) - STAT [id number] 18:15:11 Test Item Value Reference Range Interpretation Comments HEMOGLOBIN (BEAKER) (test code = 9.1 GM/DL 13.0-16.8 L 410) HEMATOCRIT (BEAKER) (test code = 27.0 % 40.0-50.0 L 411) BLOOD GAS, [id number] 18:15:10 Test Item Value Reference Range Interpretation [...] (test code = 1819) 80.0 SODIUM NA-STAT [id number] 18:14:37 Test Item Value Reference Range Interpretation Comments SODIUM (BEAKER) (test code = 381) 137 meq/L 136-145 POTASSIUM-STAT [id number] 18:14:37 Test Item Value Reference Range Interpretation Comments POTASSIUM (BEAKER) (test code = 4.1 meq/L 3.6-5.5 379) CALCIUM, [id number] 17:11:36 Test Item Value Reference Range Interpretation Comments CALCIUM IONIZED (BEAKER) (test 1.09 mmol/L 1.12-1.27 L code = 698) PH, BLOOD (BEAKER) (test code = 7.40 1810) GLUCOSE-STAT [id number] 17:11:30 Test Item Value Reference Range Interpretation Comments GLUCOSE RANDOM (BEAKER) (test code 128 mg/dL 70-110 H = 652) HGB/HCT (H&H) - STAT [id number] 17:11:30 Test Item Value Reference Range Interpretation Comments HEMOGLOBIN (BEAKER) (test code = 10.5 GM/DL 13.0-16.8 L 410) HEMATOCRIT (BEAKER) (test code = 31.0 % 40.0-50.0 L 411) SODIUM NA-STAT [id number] 17:11:29 Test Item Value Reference Range Interpretation Comments SODIUM (BEAKER) (test code = 381) 134 meq/L 136-145 L BLOOD GAS, [id number] 17:11:28 Test Item Value Reference Range Interpretation [...] (BEAKER) (test code = 1819) 100.0 POTASSIUM-STAT [id number] 17:11:02 Test Item Value Reference Range Interpretation Comments POTASSIUM (BEAKER) (test code = 4.3 meq/L 3.6-5.5 379) U/S, [id number] 15:34:00Reason for exam:->Eval right neck swelling, possible abscess vs hematomaShould this be performed at the bedside?->Yes [facility] 2000 Sex: MFINAL REPORT TECHNIQUE: Grayscale ultrasound of the neck. INDICATION: Eval right neck swelling, possible abscess vs hematoma. COMPARISON: CT of the neck from earlier the same day..FINDINGS: In the right parotid region, there are hypoechoic structures which measure up to 1.3 x 0.4x 0.4 cm. These may be lymph nodes. However, this is indeterminate. An additional, prominent lymph node in the right neck measures 1.7 x 0.4 x 1 cm and is morphologically normal. IMPRESSION: No abscessor hematoma is visualized. A hypoechoic areas in the right parotid gland were not definitely seen on the recent neck CT. A follow-up ultrasound is recommended in three months for further evaluation. Signed: Jackie Miller MDReport Verified Date/Time: 03/02/2022 15:34:34 Drug Test, General Toxicology, Urine 2022-03-02 13:48:01 Test Item Value Reference Interpretation Comments Range Acetone(Quest) None Detected (test code = 3053) Methanol(Quest) None Detected (test code = 3054) Drug Test,Genrl see note The followin g compounds were Tox,U (test detected: Cotin ine (Nicotine code = 6280036) Metabolite) Morphine Hydromorphone M EGx (Lidocaine Metabolite) Caf feine Methamphetamine Lidocaine Norfentanyl (Fe ntanyl Metabolite) Dex trorphan Fentanyl EDDP ( Methadone Metabolite) Met hadone Ibuprofen For a list of compounds and l imits of detection go to:http://educa tion.tibdit.com/faq /YNE468 ISOPROPANOL None Detected (test code = 2399977) ETHANOL (test None Detected Volatile Wilson it of Detection: code = 9788118) 5 mg/dL This test was developed and i ts analytical performancechar acteristics have been deter mined by [employer]. It hasnot been ulysses ared or approved by the U.S. Food and DrugAdministrat ion. This assay has been validated pursuantto the CLIA regulations and is used for clinicalpurpose s. TOR (test code Performing Lab = TOR) [address] [employer]/[facility] [address] [facility] [place], [place] Wing Hinkle MD, PhD [facility] HospitalDrug Test, General Toxicology, [id number] 13:48:01 Test Item Value Reference Interpretation Comments Range Acetone(Quest) None Detected (test code = 3053) Methanol(Quest) None Detected (test code = 3054) Drug Test,Genrl see note The followin g compounds were Tox,U (test detected: Cotin ine (Nicotine code = 0566157) Metabolite) Morphine Hydromorphone M EGx (Lidocaine Metabolite) Caf feine Methamphetamine Lidocaine Norfentanyl (Fe ntanyl Metabolite) Dex trorphan Fentanyl EDDP ( Methadone Metabolite) Met hadone Ibuprofen For a list of compounds and l imits of detection go to:http://[employer]/faq /WLO630 ISOPROPANOL None Detected (test code = 1738739) ETHANOL (test None Detected Volatile Wilson it of Detection: code = 1616518) 5 mg/dL This test was developed and i ts analytical performancechar acteristics have been deter mined by [employer] [place]. It hasnot been ulysses ared or approved by the U.S. Food and DrugAdministrat ion. This assay has been validated pursuantto the CLIA regulations and is used for clinicalpurpose s. TOR (test code Performing Lab = TOR) [address] [employer]/[facility] [address] [place] Wing Hinkle MD, PhD [facility] HospitalDrug Test, General Toxicology, [id number] 13:48:01 Test Item Value Reference Interpretation Comments Range Acetone(Quest) None Detected (test code = 3053) Methanol(Quest) None Detected (test code = 3054) Drug Test,Genrl see note The followin g compounds were Tox,U (test detected: Cotin ine (Nicotine code = 0637194) Metabolite) Morphine Hydromorphone M EGx (Lidocaine Metabolite) Caf feine Methamphetamine Lidocaine Norfentanyl (Fe ntanyl Metabolite) Dex trorphan Fentanyl EDDP ( Methadone Metabolite) Met hadone Ibuprofen For a list of compounds and l imits of detection go to:http://educa tion.tibdit.[employer]xx/faq /MWW284 ISOPROPANOL None Detected (test code = 5690548) ETHANOL (test None Detected Volatile Wilson it of Detection: code = 0008170) 5 mg/dL This test was developed and i ts analytical performancechar acteristics have been deter mined by [employer] [place], [place]. It hasnot been ulysses ared or approved by the U.S. Food and DrugAdministrat ion. This assay has been validated pursuantto the CLIA regulations and is used for clinicalpurpose s. TOR (test code Performing Lab = TOR) [address] [employer]/[facility] [address] [facility] [place], [place] Wing Hinkle MD, PhD [facility] HospitalAPTT2022-04-14 11:21:49 Test Item Value Reference Range Interpretation Comments PARTIAL THROMBOPLASTIN TIME 32.0 seconds 22.5-36.0 (BEAKER) (test code = 760) HEMOGLOBIN [id number] 11:20:03 Test Item Value Reference Range Interpretation Comments HEMOGLOBIN A1C 4.5 % See_Comment [Automated m essage] ELECTROPHORESIS ([employer]) The system which (test code = 3811) generated this result transmitted ref erence range: <=5.6%. The reference range was not used to int erpret this result as normal/abnormal . "The A1c is measured using a NGSP-certified method. HbA1c value equal to or greater than 6.5% as thediagnosis cutoff for diabetes. An HbA1c value of 5.7- 6.4% indicates increased risk for diabetes (prediabetes)."Wooden Box Maker ID - ADMRAD, CHEST, 1 VIEW, NON [id number] 10:33:00Reason for exam:->follow up for improvement of pulm edemaShould this be performed at the bedside?->Yes [facility] : 2000 Sex: MFINAL REPORT TECHNIQUE: [...] MDReport Verified Date/Time: 03/02/2022 10:33:54 Reading Location: [facility] Radiology Reading Room [id number] 10:30:50 Test Item Value Reference Range Interpretation Comments TRIGLYCERIDES (BEAKER) (test code = 78 mg/dL 540) TRIGLYCERIDE REFERENCE RANGELow Risk <150Borderline Risk 150-199High Risk 200-499Very High Risk >=500Operator ID - BSKARIUS NEXT GENERATION SEQUENCING 2022-03-02 09:42:13 Test Item Value Reference Range Interpretation Comments KARIUS NEXT GENERATION SEQUENCING (test code = 7005569) See scanned [id number] 09:26:44 Test Item Value Reference Range Interpretation Comments PARTIAL THROMBOPLASTIN TIME 172.2 seconds 22.5-36.0 HH (BEAKER) (test code = 760) BLOOD GAS, [id number] 09:08:16 Test Item Value Reference Range Interpretation [...] FIO2 (BEAKER) (test code = 1819) 50.0 [id number] 07:21:46 Test Item Value Reference Range Interpretation Comments PARTIAL THROMBOPLASTIN TIME > seconds 22.5-36.0 HH (BEAKER) (test code = 760) CBC W/PLT COUNT & AUTO [id number] 06:17:45 Test Item Value Reference Range Interpretation [...] code = 2801) CT, SOFT TISSUE NECK, [id number] 06:12:00Unlisted Reason for Exam - Click Yes and Enter Reason Below->No [facility] : 2000 Sex: MFINAL REPORT CT Neck [...] with dedicated ultrasound if indicated. Signed: [facility]na [facility] Verified Date/Time: 03/02/2022 06:12:23 CT, CHEST, WITHOUT [id number] 05:42:00Unlisted Reason for Exam - Click Yes and Enter Reason Below->YesUnlisted Reason for Exam->facial plethora [facility] SUSAN PISANO : 2000 Sex: MFINAL REPORT Chest CT [...] in caliber however not well seen on this examination. Diffuse soft tissue stranding throughout the mediastinum limits evaluation for mediastinal adenopathy. The heart is globally enlarged. Small pericardial effusion. Great vessels are normalin caliber.Anasarca. No axillary adenopathy. Venous catheter in [...] etiology. Global cardiomegaly. Anasarca. Signed: Aparna Trinidad Verified Date/Time: 03/02/2022 05:42:18 [id number] 05:01:44 Test Item Value Reference Range Interpretation Comments PHOSPHORUS (BEAKER) (test code = 3.6 mg/dL 2.3-4.7 604) Wooden Box Maker ID - ADMINHEPATIC FUNCTION [id number] 05:01:44 Test Item Value Reference Range Interpretation [...] code = 335 U/L 6-55 H 347) Wooden Box Maker ID - ADMINBASIC METABOLIC [id number] 05:01:43 Test Item Value Reference Range Interpretation [...] S NOT APPLICABLE FOR DIALYSIS PATIEN TS. Wooden Box Maker ID - [id number] 05:01:43 Test Item Value Reference Range Interpretation Comments MAGNESIUM (BEAKER) (test code = 1.7 mg/dL 1.6-2.6 627) Wooden Box Maker ID - ADMINBLOOD GAS, [id number] 04:56:25 Test Item Value Reference Range Interpretation [...] (BEAKER) (test code = 1819) 50.0 CALCIUM, [id number] 04:55:40 Test Item Value Reference Range Interpretation Comments CALCIUM IONIZED (BEAKER) (test 1.14 mmol/L 1.12-1.27 code = 698) PH, BLOOD (BEAKER) (test code = 7.44 1810) SARS-COV2/RT-PCR ([facility])2022-03-02 02:40:25 Test Item Value Reference Range Interpretation Comments SARS-COV2/RT-PCR (test code = Negative Negative 5398395) Negative result for this test determines that [...] 564(g) of the Act.Testing was performed using [facility] SARS-CoV-2 assay.Fact Sheet for Healthcare Providers:https://www.[employer]/amanda/RT SARS-CoV-2 HCP Fact Sheet 51- 819944.pdfFact Sheet for Healthcare Patients:https://www.[employer]/amanda/RT SARS-CoV-2 Patient Fact Sheet EN 51-707372G6.pdfBLOOD GAS, [id number] 01:37:14 Test Item Value Reference Range Interpretation [...] = 1819) 100.0 RAD, ABDOMEN/KUB, 1 VIEW [id number] 01:10:00Reason for exam:->corpak [facility] 2000 Sex: MFINAL REPORT CLINICAL HISTORY: [...] with small right pleural effusion. Signed: [facility]parna [facility] Verified Date/Time: 03/02/2022 01:10:30 RAD, CHEST, 1 VIEW, NON [id number] 23:42:00Reason for exam:->s/p intubation, placement of ettShould this be performed at the bedside?->Yes [facility] : 2000 Sex: MFINAL REPORT RAD, CHEST, 1 VIEW, NON DEPT INDICATION: s/p intubation, placementof ett COMPARISON: Prior day's exam FINDINGS: Portable frontal view of the chest. IMPRESSION: Support Lines: Endotracheal tube terminates 6.4 cm above the sarah. Lungs and pleura: Unchanged airspace and pleural opacities. No pneumothorax.Heart and mediastinum: Stable contours. Additional findings: None. Signed: Aparna Trinidad MDReport Verified Date/Time: 03/01/2022 23:42:09 RAD, CHEST, 1 VIEW, NON [id number] 22:35:00Reason for exam:->shortness of breathShould this be performed at the bedside?->Yes [facility] 2000 Sex: MFINAL REPORT EXAM: Chest [...] Giovana Weiner MDReport Verified Date/Time: 03/01/2022 22:35:41 [id number] 21:34:58 Test Item Value Reference Range Interpretation Comments THYROID STIMULATING HORMONE 6.819 uIU/mL 0.350-4.940 H (BEAKER) (test code = 772) Wooden Box Maker ID - [id number] 20:53:29 Test Item Value Reference Range Interpretation Comments PARTIAL THROMBOPLASTIN TIME 50.2 seconds 22.5-36.0 H (BEAKER) (test code = 760) [id number] 14:54:49 Test Item Value Reference Range Interpretation Comments PARTIAL THROMBOPLASTIN TIME 33.8 seconds 22.5-36.0 (BEAKER) (test code = 760) [id number] 07:51:25 Test Item Value Reference Range Interpretation Comments PARTIAL THROMBOPLASTIN TIME 48.1 seconds 22.5-36.0 H (BEAKER) (test code = 760) [id number] 06:13:36 Test Item Value Reference Range Interpretation Comments PHOSPHORUS (BEAKER) (test code = 3.0 mg/dL 2.3-4.7 604) Wooden Box Maker ID - PIAYA LHEPATIC FUNCTION [id number] 06:13:36 Test Item Value Reference Range Interpretation [...] code = 402 U/L 6-55 H 347) Wooden Box Maker ID - PIAYA LBASIC METABOLIC [id number] 06:13:35 Test Item Value Reference Range Interpretation [...] S NOT APPLICABLE FOR DIALYSIS PATIEN TS. Wooden Box Maker ID - ADRIENNE [id number] 06:13:35 Test Item Value Reference Range Interpretation Comments MAGNESIUM (BEAKER) (test code = 1.7 mg/dL 1.6-2.6 627) Wooden Box Maker ID - ADRIENNE [id number] 05:33:09 Test Item Value Reference Range Interpretation Comments PARTIAL THROMBOPLASTIN TIME 130.5 seconds 22.5-36.0 H (BEAKER) (test code = 760) PROTHROMBIN TIME/[id number] 05:28:13 Test Item Value Reference Range Interpretation Comments PROTIME (BEAKER) 16.9 seconds 11.9-14.2 H (test code = 759) INR (BEAKER) (test 1.40 See_Comment [Automat ed message] code = 370) The system [employer] generated this result transmitted ref erence range: [...] Normal 486) CBC W/PLT COUNT & AUTO [id number] 05:26:10 Test Item Value Reference Range Interpretation [...] WBC 0-0 (BEAKER) (test code = 413) [id number] 22:02:11 Test Item Value Reference Range Interpretation Comments PARTIAL THROMBOPLASTIN TIME 54.2 seconds 22.5-36.0 H (BEAKER) (test code = 760) [id number] 12:33:47 Test Item Value Reference Range Interpretation Comments PARTIAL THROMBOPLASTIN TIME 52.1 seconds 22.5-36.0 H (BEAKER) (test code = 760) HEPATIC FUNCTION [id number] 08:25:00 Test Item Value Reference Range Interpretation [...] code = 530 U/L 6-55 H 347) Wooden Box Maker ID - ADRIENNE LOperator ID - [id number] 07:39:09 Test Item Value Reference Range Interpretation Comments MAGNESIUM (BEAKER) (test code = 1.7 mg/dL 1.6-2.6 627) Wooden Box Maker ID - ADRIENNE [id number] 07:39:09 Test Item Value Reference Range Interpretation Comments PHOSPHORUS (BEAKER) (test code = 2.7 mg/dL 2.3-4.7 604) Wooden Box Maker ID - ADRIENNE LBASIC METABOLIC [id number] 07:39:08 Test Item Value Reference Range Interpretation [...] S NOT APPLICABLE FOR DIALYSIS PATIEN TS. Wooden Box Maker ID - PIAYA L(CELLAVISION MANUAL DIFF)2022-02-28 06:30:21 Test Item Value Reference Range Interpretation Comments TOTAL COUNTED (BEAKER) (test code = 1351) RBC MORPHOLOGY (BEAKER) (test code = Normal 762) WBC MORPHOLOGY (BEAKER) (test code = Normal 487) PLT MORPHOLOGY (BEAKER) (test code = Normal 486) CBC W/PLT COUNT & AUTO [id number] 06:30:20 Test Item Value Reference Range Interpretation [...] WBC 0-0 (BEAKER) (test code = 413) [id number] 06:23:40 Test Item Value Reference Range Interpretation Comments PARTIAL THROMBOPLASTIN TIME 59.0 seconds 22.5-36.0 H (BEAKER) (test code = 760) PROTHROMBIN TIME/[id number] 06:22:31 Test Item Value Reference Range Interpretation Comments PROTIME (BEAKER) 17.5 seconds 11.9-14.2 H (test code = 759) INR (BEAKER) (test 1.46 See_Comment [Automat ed message] code = 370) The system [employer] generated this result transmitted ref erence range: <=5.90. The reference range was not used to int erpret this result as normal/abnormal . RECOMMENDED COUMADIN/WARFARIN INR THERAPY RANGESSTANDARD DOSE: 2.0 - 3.0 Includes: PROPHYLAXIS for venous thrombosis, systemic embolization; TREATMENT for venous thrombosis and/or pulmonary embolus.HIGH RISK: Target INR is 2.5-3.5 for patients with mechanical heart valves.[id number] 22:13:02 Test Item Value Reference Range Interpretation Comments PARTIAL THROMBOPLASTIN TIME 52.0 seconds 22.5-36.0 H (BEAKER) (test code = 760) [id number] 14:56:13 Test Item Value Reference Range Interpretation Comments PARTIAL THROMBOPLASTIN TIME 39.7 seconds 22.5-36.0 H (BEAKER) (test code = 760) VANCOMYCIN LEVEL, [id number] 09:49:28 Test Item Value Reference Range Interpretation Comments VANCOMYCIN TROUGH (BEAKER) (test 10.1 ug/mL 10.0-20.0 code = 522) Wooden Box Maker ID - DBBASIC METABOLIC [id number] 08:09:35 Test Item Value Reference Range Interpretation [...] S NOT APPLICABLE FOR DIALYSIS PATIEN TS. Wooden Box Maker ID - DBHEPATIC FUNCTION [id number] 08:09:35 Test Item Value Reference Range Interpretation [...] Specimen slightly (test code = 347) hemolyzed Wooden Box Maker ID - [id number] 08:09:34 Test Item Value Reference Range Interpretation Comments PHOSPHORUS (BEAKER) 2.7 mg/dL 2.3-4.7 Specimen slightly (test code = 604) hemolyzed Wooden Box Maker ID - [id number] 08:09:33 Test Item Value Reference Range Interpretation Comments MAGNESIUM (BEAKER) 1.7 mg/dL 1.6-2.6 Specimen slightly (test code = 627) hemolyzed Wooden Box Maker ID - DBHSV 1/2 PCR, [id number] 08:06:31 Test Item Value Reference Range Interpretation Comments HSV, PCR (test code = NEGATIVE NEGATIVE 32001-9) TOR (test code = TOR) Herpes Simplex Virus (HSV) not detected.see scanned result TEST PERFORMED BY [facility] Interpretation (test Normal code = 99219-7) [facility], [id number] 08:06:31 Test Item Value Reference Range Interpretation Comments HSV, PCR (test code = NEGATIVE NEGATIVE 71095-4) TOR (test code = TOR) Herpes Simplex Virus (HSV) not detected.see scanned result TEST PERFORMED BY [facility] Interpretation (test Normal code = 23556-8) [facility], [id number] 08:06:31 Test Item Value Reference Range Interpretation Comments HSV, PCR (test code = NEGATIVE NEGATIVE 98980-9) TOR (test code = TOR) Herpes Simplex Virus (HSV) not detected.see scanned result TEST PERFORMED BY [facility] Interpretation (test Normal code = 49077-5) [facility](CELLAVISION MANUAL DIFF)2022-02-27 07:25:28 Test Item Value [...] CONCENTRATION Adequate (CELLAVISION)(BEAKER) (test code = 3438) Wooden Box Maker ID - duane Recinos comments: Slide comments:CBC W/PLT COUNT & AUTO [id number] 07:25:26 Test Item Value Reference Range Interpretation [...] WBC 0-0 (BEAKER) (test code = 413) [id number] 06:37:40 Test Item Value Reference Range Interpretation Comments PARTIAL THROMBOPLASTIN TIME 33.2 seconds 22.5-36.0 (BEAKER) (test code = 760) PROTHROMBIN TIME/[id number] 06:37:00 Test Item Value Reference Range Interpretation Comments PROTIME (BEAKER) 18.6 seconds 11.9-14.2 H (test code = 759) INR (BEAKER) (test 1.58 See_Comment [Automat ed message] code = 370) The system [employer] generated this result transmitted ref erence range: <=5.90. The reference range was not used to int erpret this result as normal/abnormal . RECOMMENDED COUMADIN/WARFARIN INR THERAPY RANGESSTANDARD DOSE: 2.0 - 3.0 Includes: PROPHYLAXIS for venous thrombosis, systemic embolization; TREATMENT for venous thrombosis and/or pulmonary embolus.HIGH RISK: Target INR is 2.5-3.5 for patients with mechanical heart valves.BLOOD [id number] 04:00:57 Test Item Value Reference Range Interpretation Comments CULTURE (BEAKER) (test No growth in 5 days code = 1095) BLOOD [id number] 04:00:56 Test Item Value Reference Range Interpretation Comments CULTURE (BEAKER) (test No growth in 5 days code = 1095) The specimen volume collected for this blood culture was below the optimum (10 mL per bottle or 20 mL total). Use of lower volumes may adversely affect recovery and/or detection times of some organisms.[id number] 21:07:53 Test Item Value Reference Range Interpretation Comments PARTIAL THROMBOPLASTIN TIME 30.2 seconds 22.5-36.0 (SHANNAN) (test code = 760) CT, CTA AAA, W/ BRANDEE.EXT.[id number] 12:35:00 [facility] : 2000 Sex: MFINAL REPORT History: IV [...] Edwards Verified Date/Time: 02/26/2022 12:35:07 Reading Location: [facility] [address] [place] [address] Reading Room [id number] 11:24:49 Test Item Value Reference Range Interpretation [...] CONCENTRATION Adequate (CELLAVISION)(BEAKER) (test code = 3438) Wooden Box Maker ID - duane Recinos comments: Slide comments:CBC W/PLT COUNT & AUTO [id number] 08:19:36 Test Item Value Reference Range Interpretation [...] (BEAKER) (test code = 413) HEPATIC FUNCTION [id number] 06:44:40 Test Item Value Reference Range Interpretation [...] code = 858 U/L 6-55 H 347) Wooden Box Maker ID - [id number] 06:44:39 Test Item Value Reference Range Interpretation Comments MAGNESIUM (BEAKER) (test code = 1.9 mg/dL 1.6-2.6 627) Wooden Box Maker ID - [id number] 06:44:39 Test Item Value Reference Range Interpretation Comments PHOSPHORUS (BEAKER) (test code = 2.9 mg/dL 2.3-4.7 604) Wooden Box Maker ID - DBBASIC METABOLIC [id number] 06:44:38 Test Item Value Reference Range Interpretation [...] S NOT APPLICABLE FOR DIALYSIS PATIEN TS. Wooden Box Maker ID - [id number] 06:22:29 Test Item Value Reference Range Interpretation Comments FIBRINOGEN LEVEL (BEAKER) (test 248 mg/dl 225-434 code = 658) [id number] 06:22:29 Test Item Value Reference Range Interpretation Comments PARTIAL THROMBOPLASTIN TIME 31.5 seconds 22.5-36.0 (BEAKER) (test code = 760) PROTHROMBIN TIME/[id number] 06:21:50 Test Item Value Reference Range Interpretation Comments PROTIME (BEAKER) 19.2 seconds 11.9-14.2 H (test code = 759) INR (BEAKER) (test 1.64 See_Comment [Automat ed message] code = 370) The system [employer] generated this result transmitted ref erence range: <=5.90. The reference range was not used to int erpret this result as normal/abnormal . RECOMMENDED COUMADIN/WARFARIN INR THERAPY RANGESSTANDARD DOSE: 2.0 - 3.0 Includes: PROPHYLAXIS for venous thrombosis, systemic embolization; TREATMENT for venous thrombosis and/or pulmonary embolus.HIGH RISK: Target INR is 2.5-3.5 for patients with mechanical heart valves.[id number] 00:16:41 Test Item Value Reference Range Interpretation Comments PARTIAL THROMBOPLASTIN TIME 30.9 seconds 22.5-36.0 (BEAKER) (test code = 760) PLATELET [id number] 00:13:42 Test Item Value Reference Range Interpretation Comments PLATELET COUNT (BEAKER) (test 236 K/CU MM 150-450 code = 756) Wooden Box Maker ID - 6000Transesophageal [id number] 20:42:47Ejection FractionSLEH ECHO HEARTLAB [facility]CK[facility] 2022-02-25 20:42:47Ejection FractionSLEH ECHO HEARTLAB MKCKESSON [facility]Trans[facility] [id number] 20:42:47Ejection FractionSLEH ECHO HEARTLAB MKCKESSON [facility] CenterAPTT2022-[facility]-09 16:11:34 Test Item Value Reference Range Interpretation Comments PARTIAL THROMBOPLASTIN TIME 29.5 seconds 22.5-36.0 (BEAKER) (test code = 760) CT, BRAIN, WITHOUT [id number] 15:02:00Unlisted Reason for Exam - Click Yes and Enter Reason Below->YesUnlisted Reason for Exam->has IE, r/o embolismMER[facility]Name: [facility] PISANOLaxmi : 2000 Sex: MFINAL REPORT CT, BRAIN, [...] recommended for further characterization. Signed: Christi Bhatti MDReport Verified Date/Time: 02/25/2022 15:02:20 VANCOMYCIN LEVEL, [id number] 13:58:13 Test Item Value Reference Range Interpretation Comments VANCOMYCIN TROUGH (BEAKER) (test 21.3 ug/mL 10.0-20.0 H code = 522) Wooden Box Maker ID - CHRIS MArterial doppler legs [id number] 13:04:36Ejection FractionSLEH ECHO HEARTLAB MKCKESSON [facility] CenterArterial doppler legs [id number] 13:04:36Ejection [facility] bilateral 2022-02-25 13:04:36Ejection FractionSLEH ECHO HEARTLAB [facility](CELLAVISION MANUAL DIFF)2022-02-25 08:34:41 Test Item Value [...] K/uL 0.00-0.00 H (CELLAVISION)(BEAKER) (test code = 2858) TOTAL COUNTED (BEAKER) (test code 100 = [...] CONCENTRATION Adequate (CELLAVISION)(BEAKER) (test code = 3438) Wooden Box Maker ID - Tiffanie Mcdonnell comments: Slide comments:CBC W/PLT COUNT & AUTO [id number] 08:34:40 Test Item Value Reference Range Interpretation [...] (BEAKER) (test code = 413) HEPATIC FUNCTION [id number] 04:51:10 Test Item Value Reference Range Interpretation [...] code = 1129 U/L 6-55 H 347) Wooden Box Maker ID - CHRIS [id number] 04:51:09 Test Item Value Reference Range Interpretation Comments PHOSPHORUS (BEAKER) (test code = 2.9 mg/dL 2.3-4.7 604) Wooden Box Maker ID - CHRIS MBASIC METABOLIC [id number] 04:51:08 Test Item Value Reference Range Interpretation [...] S NOT APPLICABLE FOR DIALYSIS PATIEN TS. Wooden Box Maker ID - CHRIS [id number] 04:51:08 Test Item Value Reference Range Interpretation Comments MAGNESIUM (BEAKER) (test code = 1.9 mg/dL 1.6-2.6 627) Wooden Box Maker ID - CHRIS [id number] 04:34:44 Test Item Value Reference Range Interpretation Comments FIBRINOGEN LEVEL (BEAKER) (test 231 mg/dl 225-434 code = 658) [id number] 04:34:44 Test Item Value Reference Range Interpretation Comments PARTIAL THROMBOPLASTIN TIME 30.5 seconds 22.5-36.0 (BEAKER) (test code = 760) PROTHROMBIN TIME/[id number] 04:34:05 Test Item Value Reference Range Interpretation Comments PROTIME (BEAKER) 19.7 seconds 11.9-14.2 H (test code = 759) INR (BEAKER) (test 1.70 See_Comment [Automat ed message] code = 370) The system [employer] generated this result transmitted ref erence range: <=5.90. The reference range was not used to int erpret this result as normal/abnormal . RECOMMENDED COUMADIN/WARFARIN INR THERAPY RANGESSTANDARD DOSE: 2.0 - 3.0 Includes: PROPHYLAXIS for venous thrombosis, systemic embolization; TREATMENT for venous thrombosis and/or pulmonary embolus.HIGH RISK: Target INR is 2.5-3.5 for patients with mechanical heart valves.LACTIC ACID, [id number] 00:44:59 Test Item Value Reference Range Interpretation Comments LACTATE BLOOD VENOUS (2) (BEAKER) 2.77 mmol/L 0.50-2.20 H (test code = 2872) Wooden Box Maker ID - CHRIS MCTA, CHEST, ABDOMEN - PELVIS, FOR [id number] 22:49:00Unlisted Reason for Exam - Click Yes and Enter Reason Below- >YesUnlisted Reason for Exam->Abdominal pain; Pre cardiac surgery; severe MR; EndocarditisMER[facility]Name[facility] : 2000 Sex: MFINAL REPORT CLINICAL [...] be excluded with urinalysis. Signed: Sudeep Mitchell MDReport Verified Date/Time: 02/24/2022 22:49:25 IC ACID, [id number] 17:35:51 Test Item Value Reference Range Interpretation Comments LACTATE BLOOD VENOUS 2.46 mmol/L 0.50-2.20 H Specime n moderately (2) (BEAKER) (test hemolyzed code = 2872) Wooden Box Maker ID - DBCREATINE KINASE (CK)2022-02-24 16:17:17 Test Item Value Reference Range Interpretation Comments CREATINE KINASE TOTAL (BEAKER) (test 52 U/L 29-200 code = 380) Wooden Box Maker ID - DBRAD, CHEST, 1 VIEW, NON [id number] 15:33:00Reason for exam:- >evaluate for pulmonary edemaShould this be performed at the bedside?->Yes [facility]ANOLaxmi : 2000 Sex: MFINAL REPORT TECHNIQUE: Frontal [...] MDReport Verified Date/Time: 02/24/2022 15:33:34 Reading Location: [address] Reading Room HEPATITIS B PCR, QUANTITATIVE 2022-02-24 13:55:05 Test Item Value Reference Range Interpretation Comments HBV RESULT COMPONENT HBV DNA not detected HBV DNA not detected (BEAKER) (test code = 2701) This test uses a Real-Time Polymerase Chain Reaction (RT-PCR) methodology and was performed using DAVID AmpliPrep/DAVID TaqMan HBV Test, v2.0 ([employer]Reportable range for this assay is [...] CONCENTRATION Adequate (CELLAVISION)(BEAKER) (test code = 3438) Wooden Box Maker ID - duane huertaMaria Victoria comments: Slide comments:CBC W/PLT COUNT & AUTO [id number] 12:17:03 Test Item Value Reference Range Interpretation [...] (BEAKER) (test code = 413) VANCOMYCIN LEVEL, [id number] 11:22:40 Test Item Value Reference Range Interpretation Comments VANCOMYCIN TROUGH (BEAKER) (test 3.1 ug/mL 10.0-20.0 L code = 522) Wooden Box Maker ID - DBBASIC METABOLIC [id number] 11:13:55 Test Item Value Reference Range Interpretation [...] S NOT APPLICABLE FOR DIALYSIS PATIEN TS. Wooden Box Maker ID - DBHEPATIC FUNCTION [id number] 11:12:19 Test Item Value Reference Range Interpretation [...] code = 1310 U/L 6-55 H 347) Wooden Box Maker ID - [id number] 11:12:18 Test Item Value Reference Range Interpretation Comments MAGNESIUM (BEAKER) (test code = 2.0 mg/dL 1.6-2.6 627) Wooden Box Maker ID - [id number] 11:12:18 Test Item Value Reference Range Interpretation Comments PHOSPHORUS (BEAKER) (test code = 2.8 mg/dL 2.3-4.7 604) Wooden Box Maker ID - [id number] 10:57:53 Test Item Value Reference Range Interpretation Comments FIBRINOGEN LEVEL (BEAKER) (test 231 mg/dl 225-434 code = 658) PROTHROMBIN TIME/[id number] 10:52:52 Test Item Value Reference Range Interpretation Comments PROTIME (BEAKER) 21.2 seconds 11.9-14.2 H (test code = 759) INR (BEAKER) (test 1.86 See_Comment [Automat ed message] code = 370) The system [employer] generated this result transmitted ref erence range: <=5.90. The reference range was not used to int erpret this result as normal/abnormal . RECOMMENDED COUMADIN/WARFARIN INR THERAPY RANGESSTANDARD DOSE: 2.0 - 3.0 Includes: PROPHYLAXIS for venous thrombosis, systemic embolization; TREATMENT for venous thrombosis and/or pulmonary embolus.HIGH RISK: Target INR is 2.5-3.5 for patients with mechanical heart valves.LACTIC ACID, [id number] 10:47:45 Test Item Value Reference Range Interpretation Comments LACTATE BLOOD VENOUS 2.19 mmol/L 0.50-2.20 Specime n slightly (2) (BEAKER) (test hemolyzed code = 2872) Wooden Box Maker ID - ELIZAAYA [id number] 16:32:27 Test Item Value Reference Range Interpretation Comments POTASSIUM (BEAKER) (test code = 3.9 meq/L 3.5-5.1 379) Wooden Box Maker ID - DBLACTIC ACID, [id number] 16:07:33 Test Item Value Reference Range Interpretation Comments LACTATE BLOOD VENOUS (2) (BEAKER) 2.54 mmol/L 0.50-2.20 H (test code = 2872) Wooden Box Maker ID - DBHEPATITIS C PCR, [id number] 14:20:05 Test Item Value Reference Range Interpretation Comments HCV RESULT COMPONENT HCV RNA not detected HCV RNA not detected (BEAKER) (test code = 2699) This test uses a Real-Time Polymerase Chain Reaction (RT-PCR) methodology and was performed using DAVID Ampliprep/DAVID TaqMan HCV test kit version 2.0 ([employer]Reportable range for this assay is 15 - 100,000,000 IU per mL (1.18 - 8.00 Log IU/mL).CMV PCR, [id number] 14:08:54 Test Item Value Reference Range Interpretation Comments CMV VIRAL LOAD - Negative or below See_Comment [Auto mated message] NEGATIVE (BEAKER) the linear range The sy stem which [...] and its performance characteristics determined by the [facility] Pathol ogy Department, Section of Molecular [...] by IFA method.CBC W/PLT COUNT & AUTO [id number] 08:06:11 Test Item Value Reference Range Interpretation [...] CONCENTRATION Adequate (CELLAVISION)(BEAKER) (test code = 3438) Wooden Box Maker MELONIE - Rachid comments: Slide comments:[id number] 04:09:19 Test Item Value Reference Range Interpretation Comments FIBRINOGEN LEVEL (BEAKER) (test 201 mg/dl 225-434 L code = 658) PROTHROMBIN TIME/[id number] 04:09:03 Test Item Value Reference Range Interpretation Comments PROTIME (BEAKER) 25.9 seconds 11.9-14.2 H (test code = 759) INR (BEAKER) (test 2.40 See_Comment [Automat ed message] code = 370) The system [employer] generated this result transmitted ref erence range: <=5.90. The reference range was not used to int erpret this result as normal/abnormal . RECOMMENDED COUMADIN/WARFARIN INR THERAPY RANGESSTANDARD DOSE: 2.0 - 3.0 Includes: PROPHYLAXIS for venous thrombosis, systemic embolization; TREATMENT for venous thrombosis and/or pulmonary embolus.HIGH RISK: Target INR is 2.5-3.5 for patients with mechanical heart valves.CALCIUM, [id number] 04:07:05 Test Item Value Reference Range Interpretation Comments CALCIUM IONIZED (BEAKER) (test 1.04 mmol/L 1.12-1.27 L code = 698) PH, BLOOD (BEAKER) (test code = 7.42 1810) BASIC METABOLIC [id number] 03:53:54 Test Item Value Reference Range Interpretation [...] S NOT APPLICABLE FOR DIALYSIS PATIEN TS. Wooden Box Maker ID - ADRIENNE [id number] 03:53:39 Test Item Value Reference Range Interpretation Comments PHOSPHORUS (BEAKER) (test code = 2.7 mg/dL 2.3-4.7 604) Wooden Box Maker ID - ADRIENNE LHEPATIC FUNCTION [id number] 03:53:39 Test Item Value Reference Range Interpretation [...] code = 2009 U/L 6-55 H 347) Wooden Box Maker ID - PIRIMMA [id number] 03:53:38 Test Item Value Reference Range Interpretation Comments MAGNESIUM (BEAKER) (test code = 2.0 mg/dL 1.6-2.6 627) Wooden Box Maker ID - ADRIENNE LLACTIC ACID, [id number] 03:46:16 Test Item Value Reference Range Interpretation Comments LACTATE BLOOD VENOUS 1.51 mmol/L 0.50-2.20 Specime n slightly (2) (BEAKER) (test hemolyzed code = 2872) Wooden Box Maker ID - PIRIMMA LSARS-COV2/RT-PCR ([facility])2022-02-23 01:42:58 Test Item Value Reference Range Interpretation Comments SARS-COV2/RT-PCR (test Negative Not Detected, Negative, code = 2447612) See external report for linked test SARS-COV-2 PERFORMING LAB [facility] (test code = 6911986) Negative result for this test determines that [...] of the Act.Fact Sheet for Healthcare Prov iders:https://www.[employer]/sites/default/files/product/documents/Fact_Sheet_HC _Gyndcbxrh_Foom_BJAO-KvA-1.pdfFact Sheet for Healthcare Patients:https://www.[employer]/sites/default/files/product/docume nts/Madd_Ytpyt_Esizmhja_Jxzk_RTCN-BtR-1.pdfPerforming Laboratory:[facility] [facility] [place], [place] [address]RXCM SENSITIVITY TROPONIN [id number] 23:20:37 Test Item Value Reference Range Interpretation Comments HIGH SENSITIVITY 60 pg/ml See_Comment H [Automated message] TROPONIN I (test code = The system which [id number]) generated this result transmitted ref erence range: <=35. Th e reference range was not used to int erpret this result as normal/abnormal . Wooden Box Maker ID - BSThe WATER PIPE INSTALLER STAT High Sensitivity Troponin-I results should be used in conjunctionwith other diagnostic information such as ECG, clinical observations and information, and patient symptoms to aid in the diagnosis of NM.LACTIC ACID, [id number] 23:17:05 Test Item Value Reference Range Interpretation Comments LACTATE BLOOD VENOUS (2) (BEAKER) 2.26 mmol/L 0.50-2.20 H (test code = 2872) Wooden Box Maker ID - BSOperator ID - [id number] 16:23:26 Test Item Value Reference Range Interpretation Comments PROCALCITONIN (BEAKER) (test code 3.38 ng/mL <0.05 H = 3036) SEPSIS RISK (ng/mL)Low: 0.05-0.50Intermediate: 0.51-2.00High: >=2.01 HEMOGLOBIN AND [id number] 16:14:08 Test Item Value Reference Range Interpretation Comments HEMOGLOBIN (BEAKER) (test code = 8.3 GM/DL 13.7-17.5 L 410) HEMATOCRIT (BEAKER) (test code = 26.7 % 40.1-51.0 L 411) Wooden Box Maker ID - 6000LACTIC ACID, [id number] 16:06:01 Test Item Value Reference Range Interpretation Comments LACTATE BLOOD VENOUS (2) (BEAKER) 2.13 mmol/L 0.50-2.20 (test code = 2872) Wooden Box Maker ID - BSCOMPLEMENT COMPONENT [id number] 15:03:19 Test Item Value Reference Range Interpretation Comments C4 COMPLEMENT (BEAKER) (test code = < mg/dL 15-57 L 394) Wooden Box Maker ID - BSCOMPLEMENT COMPONENT [id number] 14:46:11 Test Item Value Reference Range Interpretation Comments C3 COMPLEMENT (BEAKER) (test code = 22 mg/dL 82-193 L 393) Wooden Box Maker ID - [id number] 14:30:46 Test Item Value Reference Range Interpretation Comments FERRITIN (BEAKER) (test code = 2992.85 ng/mL 5.00-275.00 H 361) Wooden Box Maker ID - ADRIENNE LOperator ID - ELIZAAYA LVITAMIN B12 AND [id number] 14:30:41 Test Item Value Reference Range Interpretation Comments VITAMIN B12 > pg/mL 213-816 H (BEAKER) (test code = 774) FOLATE (BEAKER) 15.00 ng/mL See_Comment [Automated message] (test code = 362) The system which generated this result transmitted ref erence range: >=7.00. The reference range was not used to interpr et this result as normal/abnormal . Wooden Box Maker ID - ADRIENNE TEE/S, DUPLEX, [id number] 14:27:00Reason for exam:- >r/o [facility]vtKA[facility]: [facility] : 2000 Sex: MFINAL REPORT U/S, DUPLEX, [...] not visualized, possibly artifactual. Signed: Jennifer Estrada Verified Date/Time: 02/22/2022 14:27:04 COMPREHENSIVE METABOLIC [id number] 13:51:49 Test Item Value Reference Range Interpretation [...] S NOT APPLICABLE FOR DIALYSIS PATIEN TS. Wooden Box Maker ID - ADRIENNE TABATHA, TIBC, % SAT. (WITHOUT FERRITIN)2022-02-22 13:05:26 Test Item Value Reference Range Interpretation Comments IRON (BEAKER) (test code = 547) 181.0 ug/dL 40.0-160.0 H TOTAL IRON BINDING CAPACITY 176 ug/dL 250-450 L (BEAKER) (test code = 769) IRON % SATURATION (2) (BEAKER) 103 % 20-55 H (test code = 2590) Wooden Box Maker ID - [id number] 11:53:00 Test Item Value Reference Range Interpretation Comments RPR SCREEN (BEAKER) (test code = Nonreactive Nonreactive 420) 2D Echo W/Doppler(CW/PW/Color)2022-02-22 11:47:40Ejection FractionSLEH [facility]CHO [facility]Do[facility](CW/PW/Color)2022-02-22 11:47:40Ejection [facility]ractionSLEH [facility] W/Doppler(CW/PW/Color) 2022-02-22 11:47:40Ejection FractionSLE ECHO [facility]2022[facility] 10:24:42 Test Item Value Reference Range Interpretation Comments ETHANOL (BEAKER) < mg/dL See_Comment [Automated message] The (test code = 400) system [employer] generated this result tra nsmitted reference range : <=10. The reference r yo was not used to int erpret this result as normal/abnormal . Wooden Box Maker ID - BSEBV ANTIBODY, [id number] 10:16:24 Test Item Value Reference Range Interpretation Comments DALE SANTIAGO VIRAL CAPSID Positive Negative, Equivocal A ANTIGEN IGG (BEAKER) (test code = 3415) Dale Santiago Viral Capsid Antigen IgG Result Interpretation: </= 0.8 Al Negative 0.9-1.0 Al Equivocal >/= 1.1 Al PositiveCYTOMEGALOVIRUS ANTIBODY, [id number] 10:16:24 Test Item Value Reference Range Interpretation Comments CYTOMEGALOVIRUS, IGG (BEAKER) Positive Negative, Equivocal A (test code = 3429) CMV IgG Result Interpretation: </= 0.8 Al Negative 0.9-1.0 Al Equivocal >/=1.1 Al PositiveEBV ANTIBODY, [id number] 10:16:22 Test Item Value Reference Range Interpretation Comments DALE SANTIAGO VIRAL CAPSID Negative Negative, Equivocal ANTIGEN IGM (BEAKER) (test code = 3418) Dale Santiago Viral Capsid Antigen IgM Result Interpretation: </= 0.8 Al Negative 0.9-1.0 Al Equivocal >/= 1.1 Al PositiveLACTIC ACID, VENOUS 2022-02-22 10:16:15 Test Item Value Reference Range Interpretation Comments LACTATE BLOOD VENOUS (2) (KACIAKER) 3.80 mmol/L 0.50-2.20 H (test code = 2872) Wooden Box Maker ID - BSVANCOMYCIN LEVEL, [id number] 06:14:35 Test Item Value Reference Range Interpretation Comments VANCOMYCIN TROUGH (KACIAKER) (test 10.4 ug/mL 10.0-20.0 code = 522) Wooden Box Maker ID - ADRIENNE TEE/S, ABDOMINAL, [id number] 05:15:00Abdomen limited area? Add comment if clarification is needed.->LiverReason for exam:->Evaluatefor etiology of acute liver failure [facility] : 2000 Sex: MFINAL REPORT U/S, [...] CONCENTRATION Adequate (CELLAVISION)(BEAKER) (test code = 3438) Wooden Box Maker ID - Rachid comments: Slide comments:CBC W/PLT COUNT & AUTO [id number] 05:10:17 Test Item Value Reference Range Interpretation [...] 0-0 (BEAKER) (test code = 413) ACETAMINOPHEN [id number] 04:58:58 Test Item Value Reference Range Interpretation Comments ACETAMINOPHEN LEVEL (BEAKER) (test < ug/mL 10.0-30.0 L code = 344) Therapeutic Range: 10.0-30.0 g/mLToxic Levels: >200.0 g/mLOperator ID - BSOperator ID - PIAYA LHEPATIC FUNCTION [id number] 04:36:01 Test Item Value Reference Range Interpretation [...] code = 2572 U/L 6-55 H 347) Wooden Box Maker ID - BSLACTIC ACID, [id number] 04:33:04 Test Item Value Reference Range Interpretation Comments LACTATE BLOOD VENOUS (2) (BEAKER) 4.15 mmol/L 0.50-2.20 HH (test code = 2872) Wooden Box Maker ID - BSHEPATITIS PANEL, [id number] 04:30:57 Test Item Value Reference Range Interpretation Comments HEPATITIS A IGM ANTIBODY (BEAKER) Nonreactive Nonreactive (test code = 498) HEPATITIS B CORE IGM ANTIBODY Nonreactive Nonreactive (BEAKER) (test code = 645) HEPATITIS C ANTIBODY (BEAKER) Reactive Nonreactive A (test code = 367) HEPATITIS B SURFACE ANTIGEN (2) Nonreactive Nonreactive (BEAKER) (test code = 2585) Wooden Box Maker ID - BSHEPATITIS B SURFACE [id number] 04:30:49 Test Item Value Reference Range Interpretation Comments HEPATITIS B SURFACE ANTIBODY < mIU/mL <8.0 (BEAKER) (test code = 647) Wooden Box Maker ID - BSHEPATITIS A [id number] 04:30:43 Test Item Value Reference Range Interpretation Comments HEPATITIS A IGM ANTIBODY (BEAKER) Nonreactive Nonreactive (test code = 498) HEPATITIS A IGG ANTIBODY (BEAKER) Reactive Nonreactive A (test code = 2797) Wooden Box Maker ID - BSBASIC METABOLIC [id number] 04:30:04 Test Item Value Reference Range Interpretation [...] S NOT APPLICABLE FOR DIALYSIS PATIEN TS. Wooden Box Maker ID - BSHEPATITIS B CORE ANTIBODY, [id number] 04:29:05 Test Item Value Reference Range Interpretation Comments HEPATITIS B CORE TOTAL ANTIBODY Nonreactive Nonreactive (BEAKER) (test code = 497) Wooden Box Maker ID - BSHIV-1 ANTIGEN WITH HIV-1/2 [id number] 04:24:43 Test Item Value Reference Range Interpretation Comments HIV-1 ANTIGEN WITH HIV 1\\T\\2 Nonreactive Nonreactive ANTIBODY (2) (BEAKER) (test code = 2586) Wooden Box Maker ID - [id number] 03:57:10 Test Item Value Reference Range Interpretation Comments PARTIAL THROMBOPLASTIN TIME 29.7 seconds 22.5-36.0 (BEAKER) (test code = 760) PROTHROMBIN TIME/[id number] 03:56:52 Test Item Value Reference Range Interpretation Comments PROTIME (BEAKER) 27.6 seconds 11.9-14.2 H (test code = 759) INR (BEAKER) (test 2.61 See_Comment [Automat ed message] code = 370) The system [employer] generated this result transmitted ref erence range: <=5.90. The reference range was not used to int erpret this result as normal/abnormal . RECOMMENDED COUMADIN/WARFARIN INR THERAPY RANGESSTANDARD DOSE: 2.0 - 3.0 Includes: PROPHYLAXIS for venous thrombosis, systemic embolization; TREATMENT for venous thrombosis and/or pulmonary embolus.HIGH RISK: Target INR is 2.5-3.5 for patients with mechanical heart valves.[id number] 03:48:30 Test Item Value Reference Range Interpretation Comments AMMONIA (BEAKER) (test code = 348) 95 mol/L 18-72 H Wooden Box Maker ID - BSRAPID STREP SCREEN FOR GROUP [id number] 20:12:44 Test Item Value Reference Range Interpretation Comments Streptococcus pyogenes (group A) Negative Negative antigen (test code = 03564-2) Lab Interpretation (test code = Normal 48731-8) [facility] [id number] 21:49:08CT Abdomen and Pelvis with intravenous contrast. [...] Unremarkable.CONCLUSION: No acute intra-abdominal or pelvic abnormalities detected.[facility] 21:22:00 Test Item Value Reference Range Interpretation Comments APPEARANCE (test code = Hazy Clear A 4894579609) COLOR (test code = Yellow Yellow 4791440180) PH (test code = 4.8-8.0 5366741974) SP GRAVITY (test code = 1.003-1.030 5608814490) GLU U QUAL (test code = Normal Normal 0706215769) BLOOD (test code = 1+ Negative A 5641442693) KETONES (test code = Negative Negative 2920402984) PROTEIN (test code = Negative Negative 2887-8) UROBILIN (test code = Normal Normal 6161735299) BILIRUBIN (test code = Negative Negative 8140521591) NITRITE (test code = Negative Negative 3139660549) LEUK DEANDRE (test code = Negative Negative 3929361791) RBC/HPF (test code = See_Comment H [Autom ated message] 3123052080) The system [employer] generated this result transmitted ref erence range: 0 - 3 HP F. The reference range was not used to int erpret this result as normal/abnormal . WBC/HPF (test code = See_Comment [Autom ated message] 5911634743) The system [employer] generated this result transmitted ref erence range: 0 - 5 HP F. The reference range was not used to int erpret this result as normal/abnormal . BACTERIA (test code = Negative Negative 7220501607) MUCOUS (test code = Slight Negative LPF A 6257838935) Lab Interpretation (test Abnormal code = 84769-4) [facility] ([id number])2020-06-29 21:03:00 Test Item Value Reference Range Interpretation Comments NA (test code = 139 mmol/L 135-145 9957745685) K (test code = 3.9 mmol/L 3.5-5 1397456053) CL (test code = 102 mmol/L 98-108 6524061264) CO2 TOTAL (test code = 27 mmol/L 23-31 3156263502) AGAP (test code = 2-16 4323748961) BUN (test code = 11 mg/dL 7-23 9790014335) GLUCOSE (test code = 87 mg/dL 70-110 8646955484) CREATININE (test code = 0.89 mg/dL 0.6-1.25 2654476863) TOTAL BILI (test code = 0.3 mg/dL 0.1-1.0 2401516385) CALCIUM (test code = 10.2 mg/dL 8.6-10.6 3753226452) T PROTEIN (test code = 8.6 g/dL 6.3-8.2 H 9433132908) ALBUMIN (test code = 5.0 g/dL 3.5-5 8449188387) ALK PHOS (test code = 67 U/L 34-122 8160224500) ALTv (test code = 37 U/L 5-50 1742-6) AST(SGOT) (test code = 32 U/L 13-40 2725728379) eGFR Calculation mL/min/1.73m2 (Non-) (test code = 4057139175) eGFR Calculation mL/min/1.73m2 () (test code = 9698346040) TOR (test code = TOR) Association of [...] tests). Lab Interpretation Abnormal (test code = 70265-4) [facility]:02:00 Test Item Value Reference Range Interpretation Comments LIPASE (test code = 2639495757) 27 U/L 0-220 Lab Interpretation (test code = Normal 35733-9) [facility] WITH [id number] 20:53:00 Test Item Value Reference Range Interpretation Comments WBC (test code = See_Comment [Automated 9602-2) message] The sy stem which generated this result transmitted reference range : 4.20 - 10.70 10*3/?L. The reference range was not used to interpret this result as normal/abnormal . RBC (test code = See_Comment [Automated 840-8) message] The sy stem which generated this [...] RDW-SD (test code = 43.6 fL 38.5-51.6 34237-7) RDW-CV (test code = 13.2 % 12.1-15.4 788-0) PLT (test code = See_Comment H [Automated 777-3) message] The sy stem which generated this result transmitted reference range : 150 - 328 10*3/ ?L. The reference r yo was not used to interpret this result as normal/abnormal . MPV (test code = 9.3 fL 9.8-13 L 94921-0) NRBC/100 WBC (test See_Comment [Automat ed code = 4707569368) message] The system which generated this result transmitted reference range : 0.0 - 10.0 /100 WBCs. The refer ence range was not u sed to interpret th is result as normal/abnormal . NRBC x10^3 (test code <0.01 See_Comment [Auto mated = 8313210883) message] The s ystem which generated this result transmitted reference range : 10*3/?L. The reference range was not used to interpret this result as normal/abnormal . GRAN MAT (NEUT) % 44.3 % (test code = 770-8) IMM GRAN % (test code 1.70 % = 3448382885) LYMPH % (test code = 39.1 % 736-9) MONO % (test code = 6.8 % 5905-5) EOS % (test code = 7.2 % 713-8) BASO % (test code = 0.9 % 706-2) GRAN MAT x10^3(ANC) 3.41 10*3/uL 1.99-6.95 (test code = 2480164200) IMM GRAN x10^3 (test 0.13 10*3/uL 0-0.06 H code = 6247003756) LYMPH x10^3 (test code 3.01 10*3/uL 1.09-3.23 = 731-0) MONO x10^3 (test code 0.52 10*3/uL 0.36-1.02 = 742-7) EOS x10^3 (test code = 0.55 10*3/uL 0.06-0.53 H 711-2) BASO x10^3 (test code 0.07 10*3/uL 0.01-0.09 = 704-7) Lab Interpretation Abnormal (test code = 38470-8) [facility]] TSH, 3RD GENERATION W/REFLEX TO FT4 2018-04-10 09:01:01 Test Item Value Reference Range Interpretation Comments TSH (test code = 90670-1) 1.760 {uIU/ml} 0.360-3.740 [facility]] HEPATITIS [id number] 09:01:01 Test Item Value Reference Range Interpretation Comments Hepatitis B Surface Antigen (test Negative Negative code = 5195-3) Hepatitis C Antibody (test code = Negative 03135-8) Hepatitis B Core IgM (test code = Negative Negative 28955-8) Hepatitis A IgM (test code = Negative Negative 08291-4) [facility][] HIV AB, HIV 1/2, EIA, WITH [id number] 09:01:01 Test Item Value Reference Range Interpretation Comments HIV Ag/Ab 4th Gen (test code = Negative Negative 37870-8) [facility]] [id number] 09:01:01 Test Item Value Reference Range Interpretation Comments RPR (test code = 33019-5) Non-Reactive Non-Reactive [facility][] GC/CT by Amp Det (APTIMA)2018-04-10 09:01:01 Test Item Value Reference Range Interpretation Comments Source APTIMA Urine (test code = Source APTIMA) N gonorrhea by Amp Negative Negative The APTIM A assay is a Det (APTIMA) (test target am plification code = 35592-5) nucleic acid probe test utilizingtarget capture for the qualitative detection and differentia tion of ribosomalRNA fr om Neisseria gonorrhoeae to aid in the diagnosis of di sease fromsymptomatic and asymptomatic in dividuals using the [employer] System.This ass ay utilizes FDA cleared IVD reagents. Performance juani riley ed by the Molecular Diagn ostic Laboratory with in [facility].The [facility] ecular Diagnostic Labo greg is authorized unde r the Clinical LaboratoryImpro vement Amendments of 1 988 (CLIA-88) to pe rform high complexity test ing. C trachomatis by Negative Negative The APTIMA assay is a Amp Det (APTIMA) target ampl ification (test code = nucleic acid pr obe test 09333-3) utilizingtarget capture for the qualitative detection and differentia tion of ribosomalRNA fr om Chlamydia trachomatis to aid in the diagnosis of di sease fromsymptomatic and asymptomatic in dividuals using the [employer] System.This ass ay utilizes FDA cleared IVD reagents. Performance juani racteristics havebeen verifi ed by the Molecular Diagn ostic Laboratory with in [facility].The Mol ecular Diagnostic Labo greg is authorized elva givens the Clinical LaboratoryImpro vement Amendments of 1 988 (CLIA-88) to pe rform high complexity test ing. [facility]
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
[2022-08-10 12:09] VITALS: BP 137/91; TEMP 97.8; O2SAT 100
== END 2022-08-09 03:36 | disposition home or self-care (01) ==
LOC: ER 02:27
DX: M25.561 Pain in right knee (principal); R07.81 Pleurodynia; S05.12XA Contusion of eyeball and orbital tissues, left eye, initial encounter; S00.531A Contusion of lip, initial encounter
CPT/HCPCS: 99281

== ENCOUNTER 2022-08-09 03:58 | Emergency (ER) | payer OTHER ==
--- OUTSIDE RECORDS SUMMARY | 2022-08-09 04:18 | XMS REPORT | Continuity of Care Document ---
:2000 Author Organization [facility] t Address [address] [place] [place] [address] Care Team Providers Name Role Phone Maria [...] Clinician Carito SINCLAIR, Osmar Cordero Attending Clinician [phone] Deshawn NAVA, Marry Jha Attending Clinician MARRY HESS Attending Clinician Unavailable Harvey SINCLAIR, Cuate Chou Attending Clinician [phone] CARAL BABCOCK Attending Clinician Unavailable Adrián SINCLAIR, Aj Light Attending Clinician Jillian SINCLAIR, Dae Sprague Attending Clinician [phone] Elsa SINCLAIR, Abdelrahman Schwartz Attending Clinician Jose SINCLAIR, Dayanara Lozada Attending Clinician Araceli SINCLAIR, Prince Attending Clinician Gómez SINCLAIR, Jessica Attending Clinician Jem SINCLAIR, Naveen Attending Clinician Thelma SINCLAIR, Nemesio Duval Attending Clinician Anjel SINCLAIR, Susan Attending Clinician Annabella SINCLAIR, Denisse Carter Attending Clinician Rhett SINCLAIR, Rodolfo Min Attending Clinician [phone] Arnold Villafana MD Attending Clinician ARNOLD VILLAFANA Attending Clinician Unavailable Paola SINCLAIR, Candy Attending Clinician Vicente Vazquez MD Attending Clinician Gemma Heredia Attending Clinician Unavailable HUSEYIN CARTER Attending Clinician Unavailable Kang Sierra DO Attending Clinician KANG SIERRA Attending Clinician Unavailable Doctor Unassigned, [place] Attending Clinician Unavailable Pamella Vilchis Attending Clinician PAMELLA AQUINO Attending Clinician Unavailable JULIO FONSECA M.D. Attending Clinician Unavailable HINCKS, KELLY, D.O. Attending Clinician Unavailable BROWNE, SHIWAN Admitting Clinician Unavailable Bronw Browne DO Admitting Clinician ABDELRAHMAN BOOKER Admitting Clinician Unavailable Payers Payer Name Policy Type Policy Number Effective Date Expiration Date Verito DING [employer]IC [id number] 2021 00:00:00 Problems Condition Condition Condition Status Onset Resolution Last Treating Co mments Source Name Details Category Date Date Treatment Clinician Date Central Central Disease Active Univers line line 7-07 ity of clotted, clotted, 00:00: [place] initial initial 00 Medical encounter encounter Bran ch s/p s/p Disease [facility] Robotic Robotic 4-[facility] ([facility] M[facility] (St. 00:00: Medica l [place] Epic [place] Epic 00 Cent er 33 mm) by 33 mm) by Dr. 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 Medical replacemen replacemen Ce nter t) t) Acute Acute Disease Active [facility] respirator respirator Tee kes y y Medical insufficie insufficie Ce nter ncy ncy Acute Acute Disease Active [facility] blood loss blood loss [place]es anemia anemia [facility] Acute Acute Disease Active [facility] systolic systolic [facility] HF (heart HF (heart Medi rosalba failure) failure) Center Metabolic Metabolic Disease Active [facility] acidosis acidosis [facility] Hypovolemi Hypovolemi Disease Active C HI St c shock c shock [facility] Vasogenic Vasogenic Disease Active [facility] shock shock [facility] Acute Acute Disease Active [facility] bacterial bacterial [place] endocardit endocardit Me dical is is Center No known No known Disease Unive rs active active ity of problems problems [facility] Screening Screening Problem Active [facility] for STD for STD [id number] Phys ici (sexually (sexually ans transmitte transmitte d disease) d disease) Allergies, Adverse Reactions, Alerts Allergy Allergy Status Severity Reaction(s) Onset Inactive Treating Comm ents Source Name Type Date Date Clinician NO KNOWN Drug Active Univers ALLERGIE Class ity of S [facility] NO KNOWN Allergy Active [facility] ALLERGIE [facility] Family History Family Member Diagnosis Comments Start Date Stop Date Source Natural brother ADD / ADHD [facility] Natural father Mental illness Method [facility] Natural father Other [facility] Natural father No Known Problem [facility] Maternal Bipolar disorder [facility] Maternal Depression [facility] Maternal No Known Problems [facility] Natural mother Depression [facility] Natural mother No Known Problem [facility] Paternal Hyperlipidemia [facility] Paternal Hypertension [facility] Paternal Other [facility] Paternal [facility] Family member Colon cancer [facility] Family member Prostate cancer Method [facility] uncle Family history of [facility] lung cancer Social History Social Habit Start Date Stop Date Quantity Comments Source History SDOH [facility] Transport [facility] Center History of Current smoker University of tobacco use [facility] Exposure to 2022-05-17 2022-05-27 Not sure University SARS-CoV-2 00:00:00 17:42:00 [facility] [place] [facility] (event) [place] Alcohol intake 2022-04-19 2022-04-19 Ex-drinker [facility] 00:00:00 00:00:00 (finding) Medical [place] Tobacco use and 2022-02-22 2022-02-[address] [address] Tee kes exposure 00:00:00 00:00:00 Medical Center History SDOH 2022-02-22 2022-02-[address] [facility] Transport Med 00:00:00 00:00:[address] Tobacco Comment 2017-05-24 2017-05-24 restarted [facility] 00:00:00 00:00:00 05/22/2017 Hospital Alcohol Comment 2017-04-13 2017-04-13 social [facility] 00:00:00 00:00:00 Hospital Sex Assigned At [birth year] JOLEEN [place] 00:00:00 00:00:00 Medical Center Smoking Status Start Date Stop Date Source Ex-smoker 2022-05-27 00:00:00 2022-05-27 00:00:00 [facility] Current every day 2022-02-22 00:00:[address] [facility] Medical smoker Center Unknown if ever smoked [facility] Medications Ordered Filled Start Stop Current Ordering Indication Dosage Frequency Signature Comments Components Source Medication Medication Date Date Medication? Clinician (SIG) Name Name spironolact Yes [id number] TAKE ONE Methodi one 8-15 (1) st (ALDACTONE) 00:00: TABLET(S) H ospita 25 MG 00 BY MOUTH l tablet ONCE A DAY. spironolact Yes [id number] TAKE ONE Methodi one 8-15 (1) st (ALDACTONE) 00:00: TABLET(S) H ospita 25 MG 00 BY MOUTH l tablet ONCE A DAY. spironolact Yes [id number] TAKE ONE Methodi one 8-15 (1) st (ALDACTONE) 00:00: TABLET(S) H ospita 25 MG 00 BY MOUTH l tablet ONCE A DAY. sacubitriL- Yes .5{tbl} 0.5 Uni vers valsartan 7-10 tablet, ity of (ENTRESTO) 15:00: Oral, BID, [place] 24-26 mg 00 First dose Medic al tablet 0.5 on Reva Branch tablet 05/28/22 at 1000, Until Discontinu ed, Routine
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
Is this a home medication ? Yes
Has this patient brought their own medication ? No
Danny barboza will dispense the medication from inpatient. Pharmacy will dispense the medication from inpatient.
Inpati ent ordering of this medication is not allowed unless the patient is maintained on this medication at home, and home supply is unavailabl e. Does this order meet the criteria for inpatient ordering? Yes metoprolol Yes 25mg 25 mg, Unive rs succinate 7-10 Oral, ity of XL (TOPROL 14:00: DAILY, [place] XL) tablet 00 First dose Med ical 25 mg on [facility] 05/28/22 at 0900, Until Discontinu ed, Routine MULTIVIT-NM Yes Take by Uni vers NERALS/FOLI 7-10 mouth. ity of C ACID 12:12: [place] (ADULT 57 Medical MULTIVITAMI Branch N GUMMIES ORAL) dicyclomine 2021- No 10mg Take 10 mg Univers (BENTYL) 10 7-10 07-10 by mouth 4 i ty of mg capsule 11:41: 00:00 (four) [place] 18 :00 times Medical daily. Branch apixaban Yes 5mg 5 mg, Univers (ELIQUIS) 7-10 Oral, BID, ity of tablet 5 mg 01:00: First dose [place] [address] [facility] Medical 05/27/22 at Branch 2000, Until Discontinu ed, [...] First dose Medi rosalba mg on Sat Branch 05/27/22 at 1015, Until Discontinu ed, Routine polyethylen Yes 17g 17 g, Unive rs e glycol 05-27 Oral, ity of 3350 powder 14:00: DAILY[place] 17 g 00 First dose Medical on Sat [place] 05/27/22 at 0900, Until Discontinu ed, Routine sennosides Yes 8.6mg 8.6 mg, Uni vers (SENOKOT) 05-27 Oral, BID, ity of tablet 8.6 01:00: First dose [place] mg 00 on Fri Medical 05/26/22 at Branch 2000, Until Discontinu ed, Routine meropenem No 1000mg 1,000 mg, Univers (MERREM) 05-26 IV ity of 1,000 mg in 01:00: 14:03 [place], [place] NaCl 0.9% 00 :15 Q12H ABX, Medic al (NS) 50 mL First dose Bra [facility] MINI-BAG (after last modificati on) on Sandra 05/25/22 at 2000, Until Discontinu ed, Administer over 3 Hours, 50 mL
Rest ricted use approved by: MARCOS 8TH FLOOR<br&g t;Reason for Anti-Infec tive: Empiric Therapy for Suspected Infection< br>Empiric Therapy Site: Other
O ther site: cards
D uration of therapy: 7 days vancomycin No 15mg/kg 1,000 mg Univers (VANCOCIN) 05-25 (rounded ity of 1,000 mg in 21:00: 14:03 from 1,110 [place] NaCl 0.9% 00 :15 mg = 15 Medical (NS) 250 mL mg/kg ?74 Bra kyh VIAL-MATE kg), IV IV Piggyback, piggyback Q12H [...] Sandra 05/25/22 at 1245 sulfur 2021- No [id number] 5mL 5 mL, Univ ers hexafluorid 05-25 Intravenou i ty of e microsphr 15:30: 15:30 s, ONCE, 1 [place] (LUMASON) 00 :00 dose, On Medica l injection 5 [place] 05/25/22 Br anch mL at 1030, Routine
tank crewmember approving Restricted medication : KARI LOTT HEPARIN [...] (refer to continuous heparin drip order).
heparin 2021-2021- No 12U/kg/ 12 Univer s 25,000 05-25 [...] Rang e, Dosing and Testing: &nbs p;FOR [place], [facility], AND [facility] ONLY &nbs p; - aPTT < [...] RATE.
KCL 2021- No IV Univers (POTASSIUM 7-05 25-07 Infusion, ity of CHLORIDE) 10:45: 11:45 CONTINUOUS [...] 18 l coated tablet levoFLOXaci 2021- No [id number] 500mg QD Take 1 Methodi n 05-[address] (Levaquin) 00:00: 04:59 (500 mg Hos tori 500 MG 00 :00 total) by l tablet mouth daily for 7 days. levoFLOXaci No [id number] 500mg QD Take 1 Methodi n 05-[address] (Levaquin) 00:00: 04:59 (500 mg Hos tori 500 MG 00 :00 total) by l tablet mouth daily for 7 days. levoFLOXaci 2021- No [id number] 500mg QD Take 1 Methodi n 05-[address] (Levaquin) 00:00: 04:59 (500 mg Hos tori 500 MG 00 :00 total) by l tablet mouth daily for 7 days. apixaban No 2.5mg Q.5D Take 2.5 Met hodi [...] :00 l tablet gabapentin 2021- No 400mg Q.[id number] Take 400 Methodi (NEURONTIN) 04-[id number] 400 mg 15:45: 00:00 3D mouth 3 Hospita capsule 08 :00 (three) l times a day. 400mg Am, 400mg PM, 800mg at bedtime sacubitriL- 2021-0 2- No Q.5D Take by Wa thodi valsartan 04-[address] (Entresto) 15:45: [...] 25 MG 08 :00 l tablet gabapentin 2021-2021- No 400mg Q.[id number] Take 400 Methodi (NEURONTIN) 04-[id number] 400 mg 15:45: 00:00 3D mouth 3 Hospita capsule 08 :00 (three) l times a day. 400mg Am, 400mg PM, 800mg at bedtime sacubitriL- 2021-0 2022- No Q.5D Take by Wa thodi valsartan 04-[address] (Entresto) 15:45: [...] mg 24 hr day. tablet spironolact 2021-0 2021- No 25mg QD Take 25 mg Methodi one 04-[address] (ALDACTONE) 15:45: 00:00 daily. Hos tori 25 MG 08 :00 l tablet gabapentin 2021-0 2021- No 400mg Q.[id number] Take 400 Methodi (NEURONTIN) 04-[id number] 400 mg 15:45: 00:00 [...] mg 08 :00 l tablet dapaglifloz 2021-0 2- No 5mg QD Take 5 mg Methodi in 04-[address] (FARXIGA) 5 15:29: 00:00 daily. Hos tori mg tablet 07 :00 l dapaglifloz 2021-0 2- No 5mg QD Take 5 mg Methodi in 04-[address] ([facility]) 5 15:29: 00:00 daily. Hos tori mg tablet 07 :00 l dapaglifloz 2021-0 2022- No 5mg QD Take 5 mg Methodi in 04-[address] ([facility]) 5 15:29: 00:00 daily. Hos tori mg tablet 07 :00 l gabapentin 2-0 Yes [id number] Take 400mg Methodi (NEURONTIN) 04-19 PO Am, st 400 mg 00:00: 400mg PM, Hospit a capsule 00 800mg at l bedtime. dapaglifloz 2021-0 Yes [id number] 10mg QD Take 1 Methodi in 04-19 tablet (10 () 00:00: mg total) Hos tori 10 mg 00 by mouth l tablet daily. metoprolol 2021-0 Yes [id number] 25mg Q.5D Take 1 Methodi succinate 04-19 tablet (25 st XL 00:00: mg total) Hospita (TOPROL-XL) 00 by mouth 2 l 25 mg 24 hr (two) tablet times a day. sacubitriL- 2021-0 Yes [id number] 1{tbl} Q.5D Take 1 Methodi valsartan 04-[address] (Entresto) 00:00: mouth 2 Hosp ronald 24-26 mg 00 (two) l tablet per times a tablet day. apixaban 2021-0 Yes [id number] 2.5mg Q.5D Take 1 Methodi (ELIQUIS) 04-[address] 2.5 mg 00:00: (2.5 mg Hospita tablet 00 total) by l mouth 2 (two) times a day. gabapentin 2022-0 Yes [id number] Take 400mg Methodi (NEURONTIN) - PO Am, st 400 mg 00:00: 400mg PM, Hospit a capsule 00 800mg at l bedtime. dapaglifloz 2-0 Yes [id number] 10mg QD Take 1 Methodi in 04-19 tablet (10 ) 00:00: mg total) Hos tori 10 mg 00 by mouth l tablet daily. metoprolol 2022-0 Yes [id number] 25mg Q.5D Take 1 Methodi succinate 6-01 tablet (25 st XL 00:00: mg total) Hospita (TOPROL-XL) 00 by mouth 2 l 25 mg 24 hr (two) tablet times a day. sacubitriL- 2021-0 Yes [id number] 1{tbl} Q.5D Take 1 Methodi valsartan 6-[address] (Entresto) 00:00: mouth 2 Hosp ronald 24-26 mg 00 (two) l tablet per times a tablet day. apixaban 2021-0 Yes [id number] 2.5mg Q.5D Take 1 Methodi (ELIQUIS) 04-[address] 2.5 mg 00:00: (2.5 mg Hospita tablet 00 total) by l mouth 2 (two) times a day. gabapentin 2021-0 Yes [id number] Take 400mg Methodi (NEURONTIN) - PO Am, st 400 mg 00:00: 400mg PM, Hospit a capsule 00 800mg at l bedtime. dapaglifloz 2021-0 Yes [id number] 10mg QD Take 1 Methodi in 04-19 tablet (10 st () 00:00: mg total) Hos tori 10 mg 00 by mouth l tablet daily. metoprolol 2021-0 Yes [id number] 25mg Q.5D Take 1 Methodi succinate 6-01 tablet (25 st XL 00:00: mg total) Hospita (TOPROL-XL) 00 by mouth 2 l 25 mg 24 hr (two) tablet times a day. sacubitriL- 2021-0 Yes [id number] 1{tbl} Q.5D Take 1 Methodi valsartan 6-[address] (Entresto) 00:00: mouth 2 Hosp ronald 24-26 mg 00 (two) l tablet per times a tablet day. apixaban 2021-0 Yes [id number] 2.5mg Q.5D Take 1 Methodi (ELIQUIS) 04-[address] 2.5 mg 00:00: (2.5 mg Hospita tablet 00 total) by l mouth 2 (two) times a day. spironolact 2021-0 2- No [id number] 25mg QD Take 1 Methodi one 04-19-15 tablet (25 st (ALDACTONE) 00:00: 00:00 mg total) Hospita 25 MG 00 :00 by mouth l tablet daily. spironolact 2021- No [id number] 25mg QD Take 1 Methodi one 04-19-15 tablet (25 st (ALDACTONE) 00:00: 00:00 mg total) Hospita 25 MG 00 :00 by mouth l tablet daily. spironolact 2021- No [id number] 25mg QD Take 1 Methodi one 04-1915 tablet (25 st (ALDACTONE) 00:00: 00:00 mg total) Hospita 25 MG 00 :00 by mouth l tablet daily. aspirin 81 Yes 81mg Take 81 mg U nivers mg EC 5-13 by mouth. ity of tablet 00:00: [address] spironolact Yes 25mg Take 25 mg Univers one 25 mg 5-13 by mouth. ity o f tablet 00:00: [address] aspirin 81 2022- No 81mg QD Take [address] MG EC 5-13 05-13 tablet (81 [facility] tablet 00:00: 23:59 mg total) Medic al 00 :00 by mouth Center daily. spironolact 2022- No 25mg QD Take [address] one 5-13 05-13 tablet (25 [facility] (ALDACTONE) 00:00: 23:59 mg total) Medical 25 MG 00 :00 by mouth Center tablet daily. aspirin 81 3- No 81mg QD Take 1 CHI [...] 00 :00 by mouth Center daily. spironolact 2022-0 3- No 25mg QD Take [address] one 5-13 05-13 tablet (25 [facility] (ALDACTONE) 00:00: 23:59 mg total) Medical 25 MG 00 :00 by mouth Center tablet daily. aspirin 81 2021-0 2022- No 81mg QD Take [address] MG EC 5-13 05-13 tablet (81 [facility] tablet 00:00: 23:59 mg total) Medic al 00 :00 by mouth Center daily. spironolact 2022-0 2022- No 25mg QD Take 1 CHI [...] Center tablet daily. apixaban 2022-0 Yes 2.5mg Take 2.5 Univ ers 2.5 mg 5-12 mg by ity of tablet 00:00: mouth. [place] 00 Medical Branch dapaglifloz 2022-0 Yes 1{tbl} Take 1 Un deandre in 10 mg 5-12 tablet by ity of tablet 00:00: mouth [place] daily. Medical Branch sacubitriL- 2022-0 Yes .5{tbl} Take 0.5 Univers valsartan 5-12 tablets by ity of (ENTRESTO) 00:00: mouth 2 [place] 24-26 mg 00 (two) Medical tablet times Branch daily. metoprolol Yes 25mg Take 25 mg U nivers succinate 5-12 by mouth. ity o f XL 25 mg 24 00:00: [place] hr tablet 00 Medical Branch metoprolol 2022- No 25mg Q.5D Take 1 [...] 2021- No Take 400mg Univers 400 mg 03-30 07-10 PO Am, ity of capsule 00:00: 00:00 400mg PM, [place] 00 :[place] 800mg at Medical bedtime. Branch benzocaine- Yes [id number] 1{lozen Take 1 Univers menthoL 8-19 ge} Lozenge by ity of (CEPACOL 00:00: mouth [place] SORE 00 every 4 Medical THROAT, (four) Branch FÉLIX-MEN,) hours as lozenge needed for Sore throat. benzocaine- 2021- No [id number] 1{lozen Take 1 Univers menthoL 8-19 07-10 ge} Lozenge by ity o f (CEPACOL 00:00: 00:00 mouth [place] SORE 00 :00 every 4 Medical THROAT, (four) Branch FÉLIX-MEN,) hours as lozenge needed for Sore [...] it y of mg capsule 23:11: (four) [place] 03 times Medical daily. Branch iohexol 2019-0 2019- No 120mL 120 mL, Unive rs [...] IV Medical Infusion, Branch ONCE, 1 dose, 06/29/20 at 1530, BAN docusate 2018-11 Yes [id number] 100mg Take 1 U nivers (COLACE) 1-17 capsule by ity o f 100 mg 00:00: mouth [place] capsule 00 daily. [facility] Branch docusate 2018-11 Yes [id number] 100mg Take 1 U nivers (COLACE) 1-17 capsule by ity o f 100 mg 00:00: mouth [place] capsule 00 daily. [facility] Branch docusate 2018-11 Yes [id number] 100mg Take 1 U nivers (COLACE) 1-17 capsule by ity o f 100 mg 00:00: mouth [place] capsule 00 daily. [facility] Branch docusate 2018-11- No [id number] 100mg Take 1 Univers (COLACE) 1-17 07-10 capsule by ity of 100 mg 00:00: 00:00 mouth [place] capsule 00 :00 daily. Medical Branch Centrum Centrum 2018-0 Yes 1 QD TAKE 1 UT Oral [...] 2-27 mouth. ity of C ACID 03:15: [place] (ADULT 19 Medical MULTIVITAMI Branch N GUMMIES ORAL) MULTIVIT-NM Yes Take by Uni vers NERALS/FOLI 2-27 mouth. ity of C ACID 03:15: [place] (ADULT 19 Medical MULTIVITAMI Branch N GUMMIES ORAL) MULTIVIT-NM Yes Take by Uni vers NERALS/FOLI 2-27 mouth. ity of C ACID 03:15: [place] (ADULT 19 Medical MULTIVITAMI Branch N GUMMIES ORAL) ABSORICA 40 Yes [id number] 40mg QD Take 40 mg Methodi mg capsule 6-[address] 00:00: daily. Hospita 00 l ABSORICA 40 2021- No [id number] 40mg QD Take 40 mg Methodi mg capsule 6-14 04-[address] 00:00: 00:00 daily. Hospita 00 :00 l ABSORICA 40 2021- No [id number] 40mg QD Take 40 mg Methodi mg capsule 05-[address] 00:00: 00:00 daily. Hospita 00 :00 l ABSORICA 40 2021- No [id number] 40mg QD Take 40 mg Methodi mg capsule 05-[address] 00:00: 00:00 daily. Hospita 00 :00 l Vitamin Vitamin Yes UT B-12 TABS B-12 TABS Physi ci ans Vitamin C Vitamin C Yes UT TABS TABS Physici ans Immunizations Ordered Immunization Filled Immunization Date Status Commen ts Source Name Name Tdap (Adacel) 2018-04-10 Completed [facility] ns 08:31:00 FLUZONE QUAD 2015-10-05 Completed [facility] 00:00:00 Hospital FLUZONE QUAD 2015-10-05 Completed [facility] 00:00:00 Hospital FLUZONE QUAD 2015-10-05 Completed [facility] 00:00:00 Hospital FLUZONE QUAD 2015-10-05 Completed [facility] 00:00:00 Hospital Meningococcal ACWY, 2015-07-09 Completed Metho [...] t 00:00:00 Hospital FLUZONE QUAD 2012-07-10 Completed [facility] 00:00:00 Hospital HPV, Unspecified 2012-07-10 Completed Methodis t 00:00:00 Hospital HPV, Unspecified 2012-07-10 Completed Methodis t 00:00:00 Hospital FLUZONE QUAD 2012-07-10 Completed [facility] 00:00:00 Hospital HPV, Unspecified 2012-07-10 Completed Methodis t 00:00:00 Hospital FLUZONE QUAD 2012-07-10 Completed [facility] 00:00:00 Hospital HPV, Unspecified 2012-07-10 Completed Methodis t 00:00:00 Hospital FLUZONE QUAD 2012-07-10 Completed [facility] 00:00:00 Hospital FLUZONE QUAD 2012-01-09 Completed [facility] 00:00:00 Hospital FLUZONE QUAD 2012-01-09 Completed [facility] 00:00:00 Hospital FLUZONE QUAD 2012-01-09 Completed [facility] 00:00:00 Hospital FLUZONE QUAD 2012-01-09 Completed [facility] 00:00:00 Hospital Meningococcal ACWY, 2011-06-22 Completed Metho dist Unspecified 00:00:00 Hospital Tdap 2011-06-22 Completed [facility] 00:00:00 Hospital Hep A, Unspecified 2011-06-22 Completed Method ist 00:00:00 Hospital Hep A, Unspecified 2011-06-22 Completed Method ist 00:00:00 Hospital Meningococcal ACWY, 2011-06-22 Completed Metho dist Unspecified 00:00:00 Hospital Tdap 2011-06-22 Completed [facility] 00:00:00 Hospital Hep A, Unspecified 2011-06-22 Completed Method ist 00:00:00 Hospital Meningococcal ACWY, 2011-06-22 Completed Metho dist Unspecified 00:00:00 Hospital Tdap 2011-06-22 Completed [facility] 00:00:00 Hospital Hep A, Unspecified 2011-06-22 Completed Method ist 00:00:00 [facility] Meningococcal ACYW, 2011-06-22 Completed Metho dist Unspecified 00:00:00 Hospital Tdap 2011-06-22 Completed [facility] 00:00:00 Hospital IPV 2003-04-08 Completed [facility] 00:00:00 Hospital MMR 2003-04-08 Completed [facility] 00:00:00 Hospital DTaP, Unspecified 2003-04-[address] 00:00:00 Hospital DTaP, Unspecified 2003-04-[address] 00:00:00 Hospital IPV 2003-04-08 Completed [facility] 00:00:00 Hospital MMR 2003-04-08 Completed [facility] 00:00:00 Hospital DTaP, Unspecified 2003-04-[address] 00:00:00 Hospital IPV 2003-04-08 Completed [facility] 00:00:00 Hospital MMR 2003-04-08 Completed [facility] 00:00:00 Hospital DTaP, Unspecified 2003-04-[address] 00:00:00 Hospital IPV 2003-04-08 Completed [facility] 00:00:00 Hospital MMR 2003-04-08 Completed [facility] 00:00:00 Hospital Hep A, Unspecified 2001-12-10 Completed Method ist 00:00:00 Hospital Hep A, Unspecified 2001-12-10 Completed Method ist 00:00:00 Hospital Hep A, Unspecified 2001-12-10 Completed Method ist 00:00:00 Hospital Hep A, Unspecified 2001-12-10 Completed Method ist 00:00:00 Hospital IPV 2000-03-28 Completed [facility] 00:00:00 Hospital MMR 2000-03-28 Completed [facility] 00:00:00 Hospital Varicella 2000-03-28 Completed [facility] 00:00:00 Hospital DTaP, Unspecified 2000-03-[address] 00:00:00 Hospital Hep B, Unspecified 2000-03-28 Completed Method ist 00:00:00 Hospital Hib (PRP-T) 2000-03-28 Completed [facility] 00:00:00 Hospital DTaP, Unspecified 2000-03-[address] 00:00:00 Hospital Hep B, Unspecified 2000-03-28 Completed Method ist 00:00:00 Hospital Hib (PRP-T) 2000-03-28 Completed Mosque 00:00:00 Hospital IPV 2000-03-28 Completed Mosque 00:00:00 Hospital MMR 2000-03-28 Completed [facility] 00:00:00 Hospital Varicella 2000-03-28 Completed [facility] 00:00:00 Hospital DTaP, Unspecified 2000-03-[address] 00:00:00 Hospital Hep B, Unspecified 2000-03-28 Completed Method ist 00:00:00 Hospital Hib (PRP-T) 2000-03-28 Completed Mosque 00:00:00 Hospital IPV 2000-03-28 Completed [facility] 00:00:00 Hospital MMR 2000-03-28 Completed [facility] 00:00:00 Hospital Varicella 2000-03-28 Completed [facility] 00:00:00 Hospital DTaP, Unspecified 2000-03-[address] 00:00:00 Hospital Hep B, Unspecified 2000-03-28 Completed Method ist 00:00:00 Hospital Hib (PRP-T) 2000-03-28 Completed Mosque 00:00:00 Hospital IPV 2000-03-28 Completed [facility] 00:00:00 Hospital MMR 2000-03-28 Completed [facility] 00:00:00 Hospital Varicella 2000-03-28 Completed [facility] 00:00:00 Hospital IPV 1999 Completed [facility] 00:00:00 Hospital DTaP, Unspecified [address] 00:00:00 Hospital Hib (PRP-T) 1999 Completed [facility] 00:00:00 Hospital DTaP, Unspecified [address] 00:00:00 Hospital Hib (PRP-T) 1999 Completed [facility]que 00:00:00 Hospital IPV 1999 Completed [facility]que 00:00:00 Hospital DTaP, Unspecified [address] 00:00:00 Hospital Hib (PRP-T) 1999 Completed Mos[facility] 00:00:00 Hospital IPV 1999 Completed [facility] 00:00:00 Hospital DTaP, Unspecified [address] 00:00:00 Hospital Hib (PRP-T) 1999 Completed [facility] 00:00:00 Hospital IPV 1999 Completed [facility] 00:00:00 Hospital IPV 1999 Completed [facility] 00:00:00 Hospital DTP / HiB 1999 Completed [facility] 00:00:00 Hospital DTP / HiB 1999 Completed [facility] 00:00:00 Hospital IPV 1999 Completed [facility] 00:00:00 Hospital DTP / HiB 1999 Completed [facility] 00:00:00 Hospital IPV 1999 Completed [facility] 00:00:00 Hospital DTP / HiB 1999 Completed [facility] 00:00:00 Hospital IPV 1999 Completed [facility] 00:00:00 Hospital Hep B, Unspecified 1999 Completed [...] Comments Source Systolic blood 2022-05-28 109 mm[Hg] [facility] of pressure 12:45:00 [facility] Diastolic blood 2022-05-28 63 mm[Hg] University o f pressure 12:45:00 [facility] Heart rate 2022-05-28 70 /min [facility] 12:45:00 [facility] Body temperature 2022-05-28 36.78 Le University 12:45:00 [facility] Respiratory rate 2022-05-28 20 /min [facility] 12:45:00 [facility] Oxygen saturation 2022-05-28 99 /min [facility] in Arterial blood 12:45:00 [facility] by Pulse oximetry [place] Body height 2022-05-27 185.4 cm University of 22:43:00 [facility] Body weight 2022-05-27 68.04 kg University 22:43:00 [facility] BMI 2022-05-27 19.79 kg/m2 University 22:43:00 [facility] HEIGHT 2022-04-19 182.9 cm 12:52:00 WEIGHT 2022-04-19 [...] 2021-07-07 131 mm[Hg] University of pressure 19:29:00 [facility] Diastolic blood 2021-07-07 74 mm[Hg] University o f pressure 19:29:00 [facility] Heart rate 2021-07-07 96 /min University of 19:29:00 [facility] Body temperature 2021-07-07 37.44 Le University of 19:29:00 [facility] Respiratory rate 2021-07-07 14 /min University of 19:29:00 [facility] Body weight 2021-07-07 76.658 kg University of 19:29:00 [facility] BMI 2021-07-07 22.30 kg/m2 University of 19:29:00 [facility] Oxygen saturation 2021-07-07 100 /min [facility] in Arterial blood 19:29:00 [facility] by Pulse oximetry Branch Systolic blood 2020-06-29 119 mm[Hg] University of pressure 23:00:00 [facility] Diastolic blood 2020-06-29 76 mm[Hg] University o f pressure 23:00:00 [facility] Heart rate 2020-06-29 52 /min University of 23:00:00 [facility] Body temperature 2020-06-29 37.39 Le University of 22:54:00 [facility] Respiratory rate 2020-06-29 14 /min University of 22:54:00 [facility] Oxygen saturation 2020-06-29 100 /min [facility] in Arterial blood 22:54:00 [facility] by Pulse oximetry Branch Body height 2020-06-29 185.4 cm University of 20:18:00 [facility] Body weight 2020-06-29 74.844 kg University of 20:18:00 [facility] BMI 2020-06-29 21.77 kg/m2 University of 20:18:00 [facility] Systolic blood 2020-06-29 119 mm[Hg] University of pressure 23:00:00 [facility] Diastolic blood 2020-06-29 76 mm[Hg] University o f pressure 23:00:00 [facility] Heart rate 2020-06-29 52 /min University of 23:00:00 [facility] Body temperature 2020-06-29 37.39 Le University of 22:54:00 [facility] Respiratory rate 2020-06-29 14 /min University 22:54:00 [facility] Oxygen saturation 2020-06-29 100 /min University in Arterial blood 22:54:00 [facility] by Pulse oximetry [place] Body height 2020-06-29 185.4 cm University 20:18:00 [facility] Body weight 2020-06-29 74.844 kg University 20:18:00 [facility] BMI 2020-06-29 21.77 kg/m2 University 20:18:00 [facility] Body height 2022-05-24 185.4 cm [facility]que 19:05:00 [facility] Systolic blood 2022-05-15 112 mm[Hg] [facility] pressure 15:28:00 [facility] Diastolic blood 2022-05-15 68 mm[Hg] [facility] pressure 15:28:00 [facility] Heart rate 2022-05-15 63 /min [facility] 15:28:00 [facility] Body weight 2022-05-15 68.04 kg [facility] 15:28:00 [facility] BMI 2022-05-15 19.79 kg/m2 [facility] 15:28:00 [facility] Oxygen saturation 2022-05-15 99 /min [facility] in Arterial blood 15:28:00 [facility] by Pulse oximetry Body temperature 2022-04-19 36.72 Le [facility] 19:48:00 [facility] Systolic blood 2022-04-19 106 mm[Hg] [facility] pressure 12:52:00 [facility] Diastolic blood 2022-04-19 59 mm[Hg] [facility] pressure 12:52:00 [facility] Heart rate 2022-04-19 87 /min [facility] 12:52:00 [facility] Respiratory rate 2022-04-19 16 /min [facility] 12:52:00 [facility] Body height 2022-04-[address] [facility] 12:52:00 [facility] Body weight 2022-04-[address] [facility] 12:52:00 [facility] BMI 2022-04-19 19.67 kg/m2 [facility] 12:52:00 [facility] Oxygen saturation 2022-04-19 100 /min [facility] in Arterial blood 12:52:00 Medical Ce nter by Pulse oximetry Respiratory rate 2022-04-13 20 /min [facility] 22:15:00 Hospital Body temperature 2022-03-[address] [facility] 12:[facility] BP Systolic 2018-04-10 115 mm[Hg] Location: [facility] Physicians 08:10:00 Position: Sitting BP Diastolic 2018-04-10 74 mm[Hg] Location: [facility]; [place] [facility] 08:10:00 Position: Sitting Height 2018-04-10 72 [in_us] [facility] 08:10:00 Weight 2018-04-10 158 [lb_av] [facility] 08:10:00 Body Mass Index 2018-04-10 21.43 kg/m2 [facility] Calculated 08:10:00 Temperature 2018-04-10 97.3 [degF] Method: [facility] 08:10:00 Tympanic Heart Rate 2018-04-10 48 /min [facility] 08:10:00 Procedures Procedure Date / Time Performing Source Performed Clinician CBC WITHOUT DIFF 2022-05-27 09:28:[address] [facility] [place] [place] MAGNESIUM 2022-05-27 09:27:00 Carlin [facility] BASIC METABOLIC PANEL (NA, 2022-05-27 09:27:00 Shankar Gillis [facility] K, CL, CO2, GLUCOSE, BUN, Medica l Branch CREATININE, CA) ACTIVATED PARTIAL THRMPLAS 2022-05-27 09:27:00 [facility]PLAS 2022-05-27 01:52:00 [facility] PART[facility] THRMPLAS 2022-05-26 12:30:00 Tyson Albarado [facility] MAGNESIUM 2022-05-26 06:52:00 Denny Bermudez [facility] BASIC METABOLIC PANEL (NA, 2022-05-26 06:52:00 Denny Bermudez [facility] K, CL, CO2, GLUCOSE, BUN, Medica l Branch CREATININE, CA) CBC WITH DIFF 2022-05-26 06:52:00 Denny Bermudez [facility] ACTIVATED PARTIAL THRMPLAS 2022-05-26 06:52:00 Tyson Albarado [facility] ACTIVATED PARTIAL THRMPLAS 2022-05-25 18:10:00 Tyson Albarado [facility] TROPONIN I 2022-05-25 16:40:00 Brett [facility] TRANSTHORACIC ECHO (TTE) 2022-05-25 13:10:00 Valentin [facility] W/ CONTRAST Medical [facility] XR CHEST 1 2022-05-25 11:48:00 Brett [facility] AC PANEL 21 + LACTIC ACID 2022-05-25 11:21:00 Valentin [facility] MRSA / MSSA SCREEN BY PCR, 2022-05-25 11:21:00 Valentin [facility] LACTATE DEHYDROGENASE 2022-05-25 11:20:00 Valentin [facility] TROPONIN I 2022-05-25 11:20:00 Brett [facility] PROTHROMBIN TIME / INR 2022-05-25 11:20:00 Valentin West [facility] ACTIVATED PARTIAL THRMPLAS 2022-05-25 11:20:00 Valentin [facility] DC INSERT NON-TUNNEL CV CATH 2022-05-25 08:00:12 Luis Alberto Fonseca [facility] [place] [place] XR CHEST 1 VW 2022-05-25 07:55:56 Luis Alberto Fonseca [facility] ACUTE CARE VENOUS BLOOD GAS 2022-05-25 07:05:00 Luis Alberto Fonseca [facility] [place] AC PANEL 20 + LACTIC ACID 2022-05-25 06:12:00 Luis Alberto Fonseca [facility] XR CHEST 1 VW 2022-05-25 05:58:29 Luis Alberto Fonseca [facility] CT CERVICAL SPINE WO 2022-05-25 05:52:43 Luis Alberto Fonseca [facility] CT HEAD WO CONTRAST 2022-05-25 05:52:43 Fonseca, Luis [facility]to [facility] BLOOD CULTURE SCREEN 2022-05-25 05:43:00 Luis Alberto Fonseca [facility] CREATINE KINASE 2022-05-25 05:43:00 Luis Alberto Fonseca [facility] LIPASE 2022-05-25 05:43:00 Luis Alberto Fonseca [facility] MAGNESIUM 2022-05-25 05:43:00 Luis Alberto Fonseca [facility] TROPONIN I 2022-05-25 05:43:00 Luis Alberto Fonseca [facility] FREE T4 2022-05-25 05:43:00 Luis Alberto Fonseca [facility] THYROID STIMULATING HORMONE 2022-05-25 05:43:00 Luis Alberto Fonseca [facility] [place] COMP. METABOLIC PANEL 2022-05-25 05:43:00 Luis Alberto Fonseca [facility] ([id number]) [facility] SALICYLATE 2022-05-25 05:43:00 Luis Alberto Fonseca [facility] ETHANOL 2022-05-25 05:43:00 Luis Alberto Fonseca [facility] CBC WITH DIFF 2022-05-25 05:43:00 Luis Alberto Fonseca [facility] PROTHROMBIN TIME / INR 2022-05-25 05:43:00 Luis Alberto Fonseca [facility] ACTIVATED PARTIAL THRMPLAS 2022-05-25 05:43:00 Luis Alberto Fonseca [facility] URINALYSIS 2022-05-25 05:43:00 Luis Alberto Fonseca [facility] URINE CULTURE 2022-05-25 05:43:00 Luis Alberto Fonseca [facility] N-TERMINAL PRO-BNP 2022-05-25 05:43:00 Luis Alberto Fonseca y [facility] COVID-19 (ID NOW RAPID 2022-05-25 05:43:00 Luis Alberto [facility]sec[facility] TEST[facility]) Medical [place] LAB ONLY COVID 2022-05-25 05:43:00 Luis Alberto Fonseca [facility] URINE DRUG (IMMUNOASSAY) - 2022-05-25 05:43:00 Luis Alberto Fonseca [facility] COMPREHENSIVE DRUG SCREEN Medica l Branch W/O REFLEX HB ECG ROUTINE & RHYTHM 2022-05-25 05:34:19 Luis Alberto Fonseca [facility] Branch ECG 12-LEAD 2022-05-15 15:40:44 Yarelis Agarwal Ho spital XR CHEST 2 VW 2022-05-05 20:56:18 Purnima Saha Ho spital XR CHEST 1 VW PORTABLE 2022-04-13 20:16:40 Aj Sampson [facility] CBC WITH PLATELET AND 2022-04-13 19:51:00 Aj Sampson [facility] DIFFERENTIAL COMPREHENSIVE METABOLIC 2022-04-13 19:51:00 Aj Sampson [facility] PANEL ESTIMATED GFR 2022-04-13 19:51:00 Aj Sampson Ho spital MANUAL DIFFERENTIAL 2022-04-13 19:51:00 Aj Sampson [facility] ECG ED PRELIMINARY 2022-04-13 19:43:09 Aj Sampson [facility] INTERPRETATION ECG 12-LEAD 2022-04-13 19:23:41 Aj Sampson Ho spital CBC (HEMOGRAM ONLY) 2022-03-30 05:08:00 Nalam, [facility] BASIC METABOLIC PANEL (7) 2022-03-30 05:08:00 Nalam, [facility] MAGNESIUM 2022-03-30 05:08:00 [facility] CBC (HEMOGRAM ONLY) 2022-03-28 06:20:00 Nalam, [facility] BASIC METABOLIC PANEL (7) 2022-03-28 06:20:00 Nalam, [facility] MAGNESIUM 2022-03-28 06:20:00 Nalam, [facility] CBC (HEMOGRAM ONLY) 2022-03-26 04:58:00 Nalam, [facility] BASIC METABOLIC PANEL (7) 2022-03-26 04:58:00 Nalam, [facility] MAGNESIUM 2022-03-26 04:58:00 [facility] E[facility] W/ DOPPLER 2022-03-24 11:55:24 Sim Joe [facility] Digna mcdonald (CW/PW/COLOR) [facility] CBC (HEMOGRAM ONLY) 2022-03-24 05:08:00 [facility] BASIC METABOLIC PANEL (7) 2022-03-24 05:08:00 [facility] MAGNESIUM 2022-03-24 05:08:00 [facility] SARS-COV2/RT-PCR ([facility] & REF 2022-03-22 12:43:00 [facility] CBC (HEMOGRAM ONLY) 2022-03-22 04:14:00 [facility] BASIC METABOLIC PANEL (7) 2022-03-22 04:14:00 [facility] MAGNESIUM 2022-03-22 04:14:00 [facility] BASIC METABOLIC PANEL (7) 2022-03-20 04:52:00 [facility] MAGNESIUM 2022-03-20 04:52:00 [facility] CBC (HEMOGRAM ONLY) 2022-03-20 04:52:00 [facility] HEPATIC FUNCTION PANEL 2022-03-19 17:59:[address] [facility] BASIC METABOLIC PANEL (7) 2022-03-19 05:14:00 [facility] MAGNESIUM 2022-03-19 05:14:00 [facility] BASIC METABOLIC PANEL (7) 2022-03-18 05:46:00 [facility] MAGNESIUM 2022-03-18 05:46:00 [facility] CBC (HEMOGRAM ONLY) 2022-03-18 05:46:00 Nalam, Denisse Emma [facility] BASIC METABOLIC PANEL (7) 2022-03-17 08:03:00 [facility] 2022-03-17 08:03:00 [facility] BASIC METABOLIC PANEL (7) 2022-03-16 12:50:00 [facility] 2022-03-16 12:50:00 [facility] CBC (HEMOGRAM ONLY) 2022-03-16 08:17:00 Nal, [facility] SARS-COV2/RT-PCR ([facility] & REF 2022-03-15 16:26:00 Nal, [facility] Remedios kumar [facility] BASIC METABOLIC PANEL (7) 2022-03-15 05:11:00 Nalam, [facility] MAGNESIUM 2022-03-15 05:11:00 Nalam, [facility] BASIC METABOLIC PANEL (7) 2022-03-14 06:54:00 Nalam, [facility] MAGNESIUM 2022-03-14 06:54:00 Replaced By [facility], [facility] CBC (HEMOGRAM ONLY) 2022-03-14 06:54:00 Nal, [facility] XR ANKLE 3 VIEWS LEFT 2022-03-13 18:30:00 Rodolfo Delaney [facility] LIMITED 2D ECHOCARDIOGRAM 2022-03-13 08:29:35 Rick Giles CH I [facility] BASIC METABOLIC PANEL (7) 2022-03-13 07:54:00 Nalam, [facility] MAGNESIUM 2022-03-13 07:54:00 Nalam, [facility] XR CHEST 1 VIEW PORTABLE / 2022-03-12 04:21:[address] [facility] BEDSIDE [facility] BASIC METABOLIC PANEL (7) 2022-03-12 04:13:00 [facility]UM 2022-03-12 04:13:00 Annabella [facility] CBC (HEMOGRAM ONLY) 2022-03-12 04:13:00 Denisse Winchester [facility] BASIC METABOLIC PANEL (7) 2022-03-11 11:32:00 Annabella [facility] MAGNESIUM 2022-03-11 11:32:00 [facility] CHEST 1 VIEW PORTABLE / 2022-03-11 04:44:00 Sampson, [facility] BEDSIDE [facility] XR CHEST 1 VIEW PORTABLE / 2022-03-10 05:47:00 [facility] BASIC METABOLIC PANEL (7) 2022-03-10 05:39:00 Adrián [facility] CBC W/PLT COUNT & AUTO 2022-03-10 05:39:00 Adrián [facility] MAGNESIUM 2022-03-10 05:39:00 Adrián [facility] HEPATIC FUNCTION PANEL 2022-03-10 05:39:00 [facility] W/[facility]T COUNT & AUTO 2022-03-10 05:39:00 Adrián [facility] BASIC METABOLIC PANEL (7) 2022-03-09 05:02:00 Adrián [facility] CBC W/PLT COUNT & AUTO 2022-03-09 05:02:00 Adrián [facility] MAGNESIUM 2022-03-09 05:02:00 Sampson, [facility] CBC W/PLT COUNT & AUTO 2022-03-09 05:02:[address] [facility] CHEST 1 VIEW PORTABLE / 2022-03-09 04:40:00 SampsonVeronica anne [facility] SARS-COV2/RT-PCR ([facility] & REF 2022-03-08 16:55:00 Nalbear, Denisse La ta [facility] XR CHEST 1 VIEW PORTABLE / 2022-03-08 05:15:00 SampsonVeronica anne [facility] BASIC METABOLIC PANEL (7) 2022-03-08 04:55:00 Sampson, [facility] CBC W/PLT COUNT & AUTO 2022-03-08 04:55:00 Sampson [facility] MAGNESIUM 2022-03-08 04:55:00 Adrián [facility] CBC W/PLT COUNT & AUTO 2022-03-08 04:55:00 Adrián [facility] BASIC METABOLIC PANEL (7) 2022-03-07 05:28:00 Sampson [facility] MAGNESIUM 2022-03-07 05:28:00 Sampson [facility] HEPATIC FUNCTION PANEL 2022-03-07 05:28:00 Arnold Gray Mudajuan C [facility] CBC W/PLT COUNT & AUTO 2022-03-07 05:27:00 Sampson [facility] CBC W/PLT COUNT & AUTO 2022-03-07 05:27:00 Sampson, [facility] XR CHEST 1 VIEW PORTABLE / 2022-03-07 03:58:00 Sampson [facility] XR CHEST 1 VIEW PORTABLE / 2022-03-06 11:03:00 Nalam, Denisse Emma [facility] VANCOMYCIN LEVEL, TROUGH 2022-03-06 08:28:00 Cholo Bustamante [facility] XR CHEST 1 VIEW PORTABLE / 2022-03-06 06:37:00 SampsonQuincy [facility] B[facility] BASIC METABOLIC PANEL (7) 2022-03-06 05:45:00 Sampson [facility] CBC W/PLT COUNT & AUTO 2022-03-06 05:45:00 Sampson, [facility] MAGNESIUM 2022-03-06 05:45:00 Sampson [facility] CBC W/PLT COUNT & AUTO 2022-03-06 05:45:00 Adrián [facility] HC ARTERIAL DOPPLER ARM UNI 2022-03-05 22:00:00 Michoacano Wilson [facility] 2D ECHO W/ DOPPLER 2022-03-05 11:42:39 Laci Maldonado [facility] (CW/PW/COLOR) [facility] BLOOD GAS, ARTERIAL 2022-03-05 03:50:00 Angelica Montez [facility] CALCIUM, IONIZED 2022-03-05 03:50:00 Naveen Parish [facility] BASIC METABOLIC PANEL (7) 2022-03-05 03:50:00 Adrián [facility] CBC W/PLT COUNT & AUTO 2022-03-05 03:50:00 Adrián [facility] MAGNESIUM 2022-03-05 03:50:00 Sampson, [facility] PHOSPHORUS 2022-03-05 03:50:00 Adrián [facility] PROTHROMBIN TIME/INR 2022-03-05 03:50:00 Adrián [facility] APTT 2022-03-05 03:50:00 Adrián [facility] HEPATIC FUNCTION PANEL 2022-03-05 03:50:00 Adam Gracia [facility] CBC W/PLT COUNT & AUTO 2022-03-05 03:50:00 [facility] DIFFERENTIAL [facility] XR CHEST 1 VIEW PORTABLE / 2022-03-05 02:01:[address] [facility] BEDSIDE [facility] PREPARE LEUKO-REDUCED RBC 2022-03-04 23:55:00 Minerva Yost I [facility] PREPARE LEUKO-REDUCED RBC 2022-03-04 23:54:00 Naveen Parish [facility] ECG 12-LEAD 2022-03-04 06:07:[address] [facility] 12-LEAD 2022-03-04 06:07:06 Unknown, [facility] ECG 12-LEAD 2022-03-04 06:07:06 Unknown, [facility] BASIC METABOLIC PANEL (7) 2022-03-04 05:58:00 [facility]UM 2022-03-04 05:58:[address] [facility] PHOSPHORUS 2022-03-04 05:58:00 Adrián [facility] HEPATIC FUNCTION PANEL 2022-03-04 05:58:00 Adam Gracia [facility] Verito [facility] VANCOMYCIN LEVEL, TROUGH 2022-03-04 05:58:00 Thuy Cruz [facility] BLOOD GAS, ARTERIAL 2022-03-04 05:00:00 Angelica Montez [facility] CALCIUM, IONIZED 2022-03-04 05:00:00 Jem [facility] CBC W/PLT COUNT & AUTO 2022-03-04 05:00:00 Adrián [facility] PROTHROMBIN TIME/INR 2022-03-04 05:00:00 Veronica Sampson [facility] APTT 2022-03-04 05:00:00 Veronica Sampson [facility] es [facility] CBC W/PLT COUNT & AUTO 2022-03-04 05:00:00 [facility] DIFFERENTIAL [facility] XR CHEST 1 VIEW PORTABLE / 2022-03-04 01:50:00 Veronica Sampson [facility] PREPARE PLASMA 2022-03-03 23:56:00 Abdelrahman Booker [facility] CBC W/PLT COUNT & AUTO 2022-03-03 20:18:00 Minerva Yost [facility] CBC W/PLT COUNT & AUTO 2022-03-03 20:18:00 Minerva Yost [facility] POCT-GLUCOSE METER 2022-03-03 18:48:[address] [facility] TRANSFUSE LEUKO-REDUCED RED 2022-03-03 17:11:[address] [facility] POCT-GLUCOSE METER 2022-03-03 13:31:[address] [facility] LACTIC ACID, ARTERIAL 2022-03-03 08:24:00 Naveen Parish [facility] BLOOD GAS, ARTERIAL 2022-03-03 08:24:00 Kris Orona [facility] CBC (HEMOGRAM ONLY) 2022-03-03 08:24:00 Veronica Sampson [facility] XR CHEST 1 VIEW PORTABLE / 2022-03-03 08:20:00 Veronica Sampson [facility] TRANSFUSE LEUKO-REDUCED RED 2022-03-03 06:10:[address] [facility] BASIC METABOLIC PANEL (7) 2022-03-03 04:47:00 Angelica Montez [facility] CBC W/PLT COUNT & AUTO 2022-03-03 04:47:00 [facility] DIFFERENTIAL [facility] MAGNESIUM 2022-03-03 04:47:00 [facility] PHOSPHORUS 2022-03-03 04:47:00 Tc [facility] PROTHROMBIN TIME/INR 2022-03-03 04:47:00 Tc [facility] LACTIC ACID, ARTERIAL 2022-03-03 04:47[facility]00 [facility]FREE T4 IF INDICATED 2022-03-03 04:47:00 Kris Orona [facility] HEPATIC FUNCTION PANEL 2022-03-03 04:47:[address] [facility] CBC W/PLT COUNT & AUTO 2022-03-03 04:47:00 [facility] ([facility]LL[facility] MANUAL DIFF) 2022-03-03 04:47:00 Angelica Montez [facility] BLOOD GAS, ARTERIAL 2022-03-03 04:40:00 Don Montezannah [facility] RRL CRITICAL LABS 2022-03-03 04:40:00 [facility] (ABG,NA,K,H&H,GLUCOSE) Medical C enter SODIUM NA-STAT LAB 2022-03-03 04:40:00 [facility] 2022-03-03 04:40:00 [facility] GLU[facility] 2022-03-03 04:40:00 [facility] (H&H) - STAT LAB 2022-03-03 04:40:00 [facility] CALCIUM, IONIZED 2022-03-03 04:30:00 [facility] 2022-03-03 02:44:00 [facility] (ABG,NA,K,H&H,GLUCOSE) Medical C enter BLOOD GAS, ARTERIAL 2022-03-03 02:44:00 [facility] SODIUM NA-STAT LAB 2022-03-03 02:44:00 [facility] POTASSIUM-STAT LAB 2022-03-03 02:44:00 [facility] GLUCOSE-STAT LAB 2022-03-03 02:44:00 [facility] HGB/HCT (H&H) - STAT LAB 2022-03-03 02:44:00 [facility] XR CHEST 1 VIEW PORTABLE / 2022-03-03 01:06:00 Veronica Sampson [facility] APTT 2022-03-03 00:38:00 Angelica Montez [facility] LACTIC ACID, ARTERIAL 2022-03-03 00:37:00 [facility] RRL CRITICAL LABS 2022-03-03 00:37:00 [facility] (ABG,NA,K,H&H,GLUCOSE) Medical C enter BLOOD GAS, ARTERIAL 2022-03-03 00:37:00 [facility] SODIUM NA-STAT LAB 2022-03-03 00:37:00 [facility] POTASSIUM-STAT LAB 2022-03-03 00:37:00 [facility] GLUCOSE-STAT LAB 2022-03-03 00:37:00 [facility] HGB/HCT (H&H) - STAT LAB 2022-03-03 00:37:00 [facility] ECG 12-LEAD 2022-03-03 00:27:27 Sampson[facility] 12-LEAD 2022-03-03 00:27:27 Unknown, Hl7 Doctor [facility] ECG 12-LEAD 2022-03-03 00:27:27 Unknown, Hl7 Doctor [facility] PREPARE RBC 2022-03-02 21:52:00 Abdelrahman Booker [facility] MAGNESIUM 2022-03-02 21:33:00 Veronica Sampson [facility] PHOSPHORUS 2022-03-02 21:33:00 Veronica Sampson [facility] CBC W/PLT COUNT & AUTO 2022-03-02 21:33:00 Adrián [facility] DIFFERENTIAL [facility] RRL CRITICAL LABS 2022-03-02 21:33:[address] [facility] (ABG,NA,K,H&H,GLUCOSE) Medical C enter CALCIUM, IONIZED 2022-03-02 21:33:00 [facility] PROTHROMBIN TIME/INR 2022-03-02 21:33:00 Jem [facility] APTT 2022-03-02 21:33:00 Naveen Parish [facility] FIBRINOGEN 2022-03-02 21:33:00 Naveen Parish [facility] OXYGEN SATURATION, MEASURED 2022-03-02 21:33:00 Keyshawn Parish [facility] LACTIC ACID, ARTERIAL 2022-03-02 21:33:00 Naveen Parish [facility] COMPREHENSIVE METABOLIC 2022-03-02 21:33:00 Naveen Parish [facility] BLOOD GAS, ARTERIAL 2022-03-02 21:33:00 Naveen Parish [facility] SODIUM NA-STAT LAB 2022-03-02 21:33:00 Jem [facility] POTASSIUM-STAT LAB 2022-03-02 21:33:00 Naveen Parish [facility] GLUCOSE-STAT LAB 2022-03-02 21:33:00 [facility] - STAT LAB 2022-03-02 21:33:00 Jem [facility] CBC W/PLT COUNT & AUTO 2022-03-02 21:33:00 Ardián [facility] (CELLAVISION MANUAL DIFF) 2022-03-02 21:33:00 Adrián [facility] XR CHEST 1 VIEW PORTABLE / 2022-03-02 21:29:00 Melissa Parish [facility] POCT-ACT 2022-03-02 20:23:00 [facility] RRL CRITICAL LABS 2022-03-02 20:20:01 [facility] es (ABG,NA,K,H&H,GLUCOSE) Medical C enter CALCIUM, IONIZED 2022-03-02 20:20:01 [facility] BLOOD [facility], ARTERIAL 2022-03-02 20:20:01 [facility] 2022-03-02 20:20:01 [facility] 2022-03-02 20:20:01 [facility] GLU[facility]SE-[facility] 2022-03-02 20:20:01 [facility] HGB/HCT (H&H) - STAT LAB 2022-03-02 20:20:01 Paola [facility] POCT-ACT 2022-03-02 19:46:00 Jem [facility] RRL CRITICAL LABS 2022-03-02 19:43:[address] [facility] (ABG,NA,K,H&H,GLUCOSE) [facility] enter BLOOD GAS, ARTERIAL 2022-03-02 19:43:48 [facility]IUM NA-STAT [facility] 2022-03-02 19:43:48 Jillian [facility] POTASSIUM-STAT LAB 2022-03-02 19:43:48 Jillian [facility] GLUCOSE-STAT LAB 2022-03-02 19:43:48 Jillian [facility] HGB/HCT (H&H) - STAT LAB 2022-03-02 19:43:48 Jillian [facility] POCT-ACT 2022-03-02 19:14:00 Naveen Parish [facility] LACTIC ACID, VENOUS 2022-03-02 19:09:51 Jillian [facility] BLOOD GAS, VENOUS 2022-03-02 19:09:48 Jillian [facility] AFB CULTURE + SMEAR 2022-03-02 18:54:58 [facility] (NON-SPUTUM) [facility] ANAEROBIC CULTURE 2022-03-02 18:54:58 [facility]US [facility] + SMEAR 2022-03-02 18:54:58 [facility] SUR[facility]IC[facility] OB[facility]ED CULTURE 2022-03-02 18:54:58 [facility] + [facility]AM STAIN [facility] AFB CULTURE + SMEAR 2022-03-02 18:46:44 [facility] ([facility] ANAEROBIC CULTURE 2022-03-02 18:46:44 Jillian [facility] FUNGUS CULTURE + SMEAR 2022-03-02 18:46:44 Jillian, [facility] SURGICALLY OBTAINED CULTURE 2022-03-02 18:46:44 [facility] + GRAM STAIN [facility] TISSUE EXAM 2022-03-02 18:37:00 [facility] POCT-ACT 2022-03-02 18:35:00 [facility] RRL CRITICAL LABS 2022-03-02 18:33:54 [facility] (ABG,NA,K,H&H,GLUCOSE) [facility] enter BLOOD GAS, ARTERIAL 2022-03-02 18:33:54 Jillian [facility] SODIUM NA-STAT LAB 2022-03-02 18:33:54 Jillian [facility] POTASSIUM-STAT LAB 2022-03-02 18:33:54 Jillian [facility] GLUCOSE-STAT LAB 2022-03-02 18:33:54 Jillian [facility] HGB/HCT (H&H) - STAT LAB 2022-03-02 18:33:54 Jillian [facility] LACTIC ACID, VENOUS 2022-03-02 18:27:52 Jillian [facility] POCT-ACT 2022-03-02 18:12:00 [facility] RRL CRITICAL LABS 2022-03-02 18:10:27 [facility] (ABG,NA,K,H&H,GLUCOSE) [facility] enter BLOOD GAS, ARTERIAL 2022-03-02 18:10:27 Jillian [facility] SODIUM NA-STAT LAB 2022-03-02 18:10:27 Jillian [facility] POTASSIUM-STAT LAB 2022-03-02 18:10:27 Jillian, [facility] GLUCOSE-STAT LAB 2022-03-02 18:10:27 Jillian [facility] HGB/HCT (H&H) - STAT LAB 2022-03-02 18:10:27 Jillian [facility] POCT-ACT 2022-03-02 18:01:00 [facility] TRANSFUSE PLASMA 2022-03-02 17:53:00 [facility] ANESTHESIA PACO 2022-03-02 17:48:50 [facility] PO[facility]-ACT 2022-03-02 17:48:00 [facility] RRL CRITICAL LABS 2022-03-02 17:03:45 [facility] (ABG,NA,K,H&H,GLUCOSE) [facility] enter CALCIUM, IONIZED 2022-03-02 17:03:45 Johnson[facility] BLOOD GAS, ARTERIAL 2022-03-02 17:03:45 [facility] SODIUM NA-STAT LAB 2022-03-02 17:03:45 [facility] POTASSIUM-STAT LAB 2022-03-02 17:03:45 [facility] GLUCOSE-STAT LAB 2022-03-02 17:03:45 [facility] HGB/HCT (H&H) - STAT LAB 2022-03-02 17:03:45 [facility] ROBOTIC MITRAL VALVE 2022-03-02 15:45:00 Jillian [facility] REPLACEMENT [facility] ROBOTIC MITRAL VALVULOPLASTY 2022-03-02 15:45:00 Jillian [facility] PROCEDURE W/ DAVINCI XI 2022-03-02 15:45:00 Jillian [facility] US NECK 2022-03-02 12:25:00 Vicente Jewels [facility] HC ARTERIAL DOPPLER ARM UNI 2022-03-02 12:02:00 Tamica Correa [facility] APTT 2022-03-02 10:55:00 Ingrid [facility] BLOOD GAS, ARTERIAL 2022-03-02 08:19:00 Ingrid L[facility] APTT 2022-03-02 08:19:00 Ingrid [facility] APTT 2022-03-02 06:36:00 [facility] PORT[facility] / 2022-03-02 06:00:00 [facility] NECK SOFT TISSUE WITH IV 2022-03-02 05:22:[address] [facility] CONTRAST [facility] CT CHEST WITHOUT IV CONTRAST 2022-03-02 05:22:00 MontezDonLake [facility]St[facility] CALCIUM, IONIZED 2022-03-02 03:56:00 Naveen Parish [facility] CBC W/PLT COUNT & AUTO 2022-03-02 03:56:00 [facility] W/PLT COUNT & AUTO 2022-03-02 03:56:00 MontezDon slaughterSt. [facility] Regional [facility] BASIC METABOLIC PANEL (7) 2022-03-02 03:55:00 Angelica Montez [facility] MAGNESIUM 2022-03-02 03:55:00 [facility] PHOSPHORUS 2022-03-02 03:55:00 Don [facility] BLOOD GAS, ARTERIAL 2022-03-02 03:55:00 [facility] HE[facility] FUNCTION PANEL 2022-03-02 03:55:[address] [facility] TRIGLYCERIDES 2022-03-02 03:55:00 Hope Lopes I [facility] BLOOD GAS, ARTERIAL 2022-03-02 01:22:00 Don Montezannah [facility] XR ABDOMEN / KUB 1 VIEW 2022-03-02 00:45:[address] XR CHEST 1 VIEW PORTABLE / 2022-03-01 23:22:00 MontezDonAngelicaSt[facility] XR CHEST 1 VIEW PORTABLE / 2022-03-01 22:21:00 Hectorrubenwu Sandipwu [facility] TYPE AND SCREEN, AUTOMATED 2022-03-01 20:23:00 Adam Beaver [facility] HEMOGLOBIN A1C 2022-03-01 20:22:00 Beaver, Adam Weiss [facility] TSH 2022-03-01 20:22:00 Beaver, Adamvimal Weiss [facility] APTT 2022-03-01 20:16:00 Araceli [facility] SARS-COV2/RT-PCR (HS & REF 2022-03-01 14:13:00 Katie Graciachary [facility] APTT 2022-03-01 14:12:00 Araceli [facility] APTT 2022-03-01 07:24:00 [facility] APTT 2022-03-01 05:07:00 Veronica Sampson [facility] HEPATIC FUNCTION PANEL 2022-03-01 05:07:[address] [facility] BASIC METABOLIC PANEL (7) 2022-03-01 05:07:00 Adam Gracia [facility] MAGNESIUM 2022-03-01 05:07:00 Adam Gracia [facility] PHOSPHORUS 2022-03-01 05:07:00 Adam Gracia [facility] PROTHROMBIN TIME/INR 2022-03-01 05:07:00 Adam Gracia [facility] CBC W/PLT COUNT & AUTO 2022-03-01 05:07:00 Adam Gracia [facility] DIFFERENTIAL [facility] CBC W/PLT COUNT & AUTO 2022-03-01 05:07:00 Adam Gracia [facility] (CELLAVISION MANUAL DIFF) 2022-03-01 05:07:00 Adam Gracia I [facility] APTT 2022-02-28 21:45:00 Araceli [facility] APTT 2022-02-28 12:07:00 [facility] PHOSPHATIDYLSERINE ABS (IGG, 2022-02-28 12:02:[address] [facility] IGM) [facility] CBC W/PLT COUNT & AUTO 2022-02-28 05:55:00 Adam Gracia [facility] CBC W/PLT COUNT & AUTO 2022-02-28 05:55:00 [facility] (CELL[facility]ISION MANUAL DIFF) 2022-02-28 05:55:00 Adam Gracia I [facility] APTT 2022-02-28 05:54:00 Veronica Sampson [facility] HEPATIC FUNCTION PANEL 2022-02-28 05:54:[address] [facility] BASIC METABOLIC PANEL (7) 2022-02-28 05:54:00 Adam Gracia CH I [facility] MAGNESIUM 2022-02-28 05:54:00 Adam Gracia [facility] PHOSPHORUS 2022-02-28 05:54:00 [facility] PROTHROMBIN TIME/INR 2022-02-28 05:54:00 Katie Graciachary [facility] APTT 2022-02-27 21:01:00 [facility] 2022-02-27 14:26:00 Araceli [facility] BEDSIDE SPIROMETRY 2022-02-27 14:16:00 Joe Montemayor [facility] VANCOMYCIN LEVEL, TROUGH 2022-02-27 09:20:00 [facility] 2022-02-27 05:41:00 Dheeraj [facility] KARIUS NEXT GENERATION 2022-02-27 05:41:00 [facility] HE[facility] FUNCTION PANEL 2022-02-27 05:41:[address] [facility] BASIC METABOLIC PANEL (7) 2022-02-27 05:41:00 Adam Gracia [facility] MAGNESIUM 2022-02-27 05:41:00 Basil [facility] PHOSPHORUS 2022-02-27 05:41:00 Basil [facility] PROTHROMBIN TIME/INR 2022-02-27 05:41:00 Basil [facility] CBC W/PLT COUNT & AUTO 2022-02-27 05:41:00 Basil [facility] DIFFERENTIAL [facility] CBC W/PLT COUNT & AUTO 2022-02-27 05:41:[address] [facility] (CELLAVISION MANUAL DIFF) 2022-02-27 05:41:00 Basil Adam [facility] LEGIONELLA PNEUMOPHILA 2022-02-27 05:40:[address] [facility] ANTIBODY (IGG) [facility] APTT 2022-02-26 20:48:00 Araceli [facility] CTA AAA AND RUNOFF 2022-02-26 11:45:00 Veronica Sampson [facility] APTT 2022-02-26 10:18:00 Araceli [facility] FIBRINOGEN 2022-02-26 05:42:00 Basil [facility] APTT 2022-02-26 05:42:00 SampsonArabella annesusan [facility] HEPATIC FUNCTION PANEL 2022-02-26 05:42:[address] [facility] BASIC METABOLIC PANEL (7) 2022-02-26 05:42:00 Adam Gracia [facility] MAGNESIUM 2022-02-26 05:42:00 Basil [facility] PHOSPHORUS 2022-02-26 05:42:00 Basil [facility] PROTHROMBIN TIME/INR 2022-02-26 05:42:00 Basil [facility] CBC W/PLT COUNT & AUTO 2022-02-26 05:42:[address] [facility] CBC W/PLT COUNT & AUTO 2022-02-26 05:42:[address] [facility] (CELLAVISION MANUAL DIFF) 2022-02-26 05:42:00 Basil Adam [facility] PLATELET COUNT 2022-02-26 00:00:00 Araceli [facility] APTT 2022-02-26 00:00:00 Araceli [facility] APTT 2022-02-25 15:52:[address] [facility] [address] BRAIN WITHOUT IV CONTRAST 2022-02-25 14:50:00 Araceli [facility] VANCOMYCIN LEVEL, TROUGH 2022-02-25 11:57:00 Priya Rojas [facility] HC ARTERIAL DOPPLER LEGS BRANDEE 2022-02-25 10:30:00 Basil [facility] FIBRINOGEN 2022-02-25 04:10:00 Basil [facility] APTT 2022-02-25 04:10:00 Veronica Sampson [facility] HEPATIC FUNCTION PANEL 2022-02-25 04:10:00 [facility] BASIC METABOLIC PANEL (7) 2022-02-25 04:10:00 Adam Gracia [facility] MAGNESIUM 2022-02-25 04:10:00 [facility]US 2022-02-25 04:10:00 Basil [facility] PROTHROMBIN TIME/INR 2022-02-25 04:10:00 [facility] CBC W/PLT COUNT & AUTO 2022-02-25 04:10:00 [facility] DIFFERENTIAL [facility] CBC W/PLT COUNT & AUTO 2022-02-25 04:10:00 Basil [facility] DIFFERENTIAL [facility] (CELLAVISION MANUAL DIFF) 2022-02-25 04:10:00 Adam Gracia [facility] LACTIC ACID, VENOUS 2022-02-25 00:11:[address] [facility] CTA CHEST,ABDOMEN & PELVIS - 2022-02-24 18:10:00 [facility] LACTIC ACID, VENOUS 2022-02-24 17:15:[address] [facility] FUNGUS CULTURE, BLOOD 2022-02-24 17:14:[address] [facility] (ISOLATOR) [facility] XR CHEST 1 VIEW PORTABLE / 2022-02-24 15:24:00 Veronica Sampson [facility] LACTIC ACID, VENOUS 2022-02-24 10:25:00 Basil [facility] FIBRINOGEN 2022-02-24 10:25:00 LerKatie mirandaOur [facility] HEPATIC FUNCTION PANEL 2022-02-24 10:25:[address] [facility] BASIC METABOLIC PANEL (7) 2022-02-24 10:25:00 Adam Gracia [facility] MAGNESIUM 2022-02-24 10:25:00 LernoKatie recinosAdamOur Lady of the [facility] PHOSPHORUS 2022-02-24 10:25:00 Katie [facility] PROTHROMBIN TIME/INR 2022-02-24 10:25:00 Basil [facility] CBC W/PLT COUNT & AUTO 2022-02-24 10:25:[address] [facility] VANCOMYCIN LEVEL, TROUGH 2022-02-24 10:25:00 Priya Rojas [facility] CREATINE KINASE (CK) 2022-02-24 10:25:00 Dayanara Garcia [facility] CBC W/PLT COUNT & AUTO 2022-02-24 10:25:00 [facility] (CELLAVISION MANUAL DIFF) 2022-02-24 10:25:00 Adam Gracia [facility] TRANSESOPHAGEAL ECHO 2022-02-24 08:45:39 Joe Montemayor [facility] POTASSIUM 2022-02-23 15:35:00 Basil [facility] LACTIC ACID, VENOUS 2022-02-23 15:35:00 Basil [facility] LACTIC ACID, VENOUS 2022-02-23 03:30:00 Basil [facility] CALCIUM, IONIZED 2022-02-23 03:30:00 Basil [facility] HEPATIC FUNCTION PANEL 2022-02-23 03:30:[address] [facility] BASIC METABOLIC PANEL (7) 2022-02-23 03:30:00 Adam Gracia [facility] MAGNESIUM 2022-02-23 03:30:00 Katie [facility] PHOSPHORUS 2022-02-23 03:30:00 [facility] PROTHROMBIN TIME/INR 2022-02-23 03:30:00 Katie [facility] FIBRINOGEN 2022-02-23 03:30:00 Katie [facility] CBC W/PLT COUNT & AUTO 2022-02-23 03:30:00 Basil [facility] DIFFERENTIAL [facility] CBC W/PLT COUNT & AUTO 2022-02-23 03:30:00 Katie Graciachary [facility] DIFFERENTIAL [facility] (CELLAVISION MANUAL DIFF) 2022-02-23 03:30:00 Adam Gracia [facility] COLOR-FLOW MAPPING 2022-02-23 00:31:21 Sim [facility] CONT WAVE PULSED DOPPLER 2022-02-23 00:31:21 Joe Montemayor [facility] LACTIC ACID, VENOUS 2022-02-22 22:26:00 Huseyin Carter [facility] HIGH SENSITIVITY TROPONIN I 2022-02-22 21:46:00 Adam Gracia [facility] SARS-COV2/RT-PCR (SLHS & REF 2022-02-22 17:26:00 Basil [facility] LABS) [facility] DRUG TEST, GENERAL 2022-02-22 17:21:[address] [facility] TOXICOLOGY, [facility] HEMOGLOBIN AND HEMATOCRIT 2022-02-22 16:02:00 Basil [facility] LACTIC ACID, VENOUS 2022-02-22 15:46:00 Lernor, [facility] PROCALCITONIN 2022-02-22 15:46:00 Basil [facility] HSV 1/2 PCR, QUALITATIVE 2022-02-22 12:50:00 Benny Conklin [facility] COMPREHENSIVE METABOLIC 2022-02-22 12:50:[address] I [facility] US DOPPLER 2022-02-22 12:37:00 Basil [facility] HEPATITIS C PCR, 2022-02-22 09:50:00 Huseyin Carter [facility] EBV VIRAL LOAD 2022-02-22 09:50:00 Rubin [facility] CMV PCR, QUANTITATIVE 2022-02-22 09:50:00 Rubin [facility] HEPATITIS B PCR, 2022-02-22 09:50:00 Rubin Benny [facility] HEPATITIS C GENOTYPE 2022-02-22 09:48:00 Huseyin Carter [facility] ETHANOL 2022-02-22 09:48:00 Basil [facility] LACTIC ACID, VENOUS 2022-02-22 09:48:00 Basil [facility] ACTIN (SMOOTH MUSCLE) 2022-02-22 09:48:[address] [facility] ANTIBODY, IGG [facility] ANTI-MITOCHONDRIAL AB, 2022-02-22 09:48:00 Benny Conklin [facility] REFLEX TO TITER [facility] CERULOPLASMIN 2022-02-22 09:48:00 Rubin Benny [facility] HEPATITIS E ABS IGG/IGM EIA 2022-02-22 09:48:00 Rubin [facility] MITOCHONDRIAL AB SCREEN 2022-02-22 09:48:00 Rubin Benny [facility] MITOCHONDRIAL AB TITER 2022-02-22 09:48:00 Benny Conklin [facility] ABORH, MANUAL 2022-02-22 09:48:00 WillyAundrea [facility] 2D ECHO W/ DOPPLER 2022-02-22 09:11:[address] [facility] (CW/PW/COLOR) [facility] US ABDOMEN LIMITED 2022-02-22 04:35:00 MacMath [facility] VANCOMYCIN LEVEL, TROUGH 2022-02-22 04:12:00 MacMath [facility] BLOOD CULTURE 2022-02-22 03:43:00 MacMath, [facility] BLOOD CULTURE 2022-02-22 03:42:00 [facility] CBC W/PLT COUNT & AUTO 2022-02-22 03:32:00 MacMath [facility] AMMONIA 2022-02-22 03:32:00 MacMath [facility] PROTHROMBIN TIME/INR 2022-02-22 03:32:00 [facility] APTT 2022-02-22 03:32:00 [facility] SALICYLATE LEVEL 2022-02-22 03:32:00 MacMath [facility] HC LAB HIV-1 AG W/HIV-1&2 AB 2022-02-22 03:32:00 [facility] HospitalC[facility] RPR 2022-02-22 03:32:00 [facility] BASIC METABOLIC PANEL (7) 2022-02-22 03:32:00 Clive Ortiz I [facility] HEPATIC FUNCTION PANEL 2022-02-22 03:32:00 MacLeonard [facility] HEPATITIS PANEL, ACUTE 2022-02-22 03:32:00 MacArth [facility] HEPATITIS A PANEL 2022-02-22 03:32:00 [facility] HEPATITIS B SURFACE ANTIBODY 2022-02-22 03:32:00 Clive Ortiz [facility] HEPATITIS B CORE ANTIBODY, 2022-02-22 03:32:[address] [facility] LACTIC ACID, VENOUS 2022-02-22 03:32:[address] [facility] RICKETTSIA AB PANEL WITH 2022-02-22 03:32:[address] [facility] REFLEX TO TITER [facility] ANTI-NUCLEAR ANTIBODY (GAGE) 2022-02-22 03:32:00 Rubin Benny [facility] EBV ANTIBODY, IGG 2022-02-22 03:32:00 Rubin [facility] CYTOMEGALOVIRUS ANTIBODY, 2022-02-22 03:32:00 Benny Conklin [facility] VITAMIN B12 AND FOLATE 2022-02-22 03:32:[address] [facility] IRON, TIBC, % SAT. (WITHOUT 2022-02-22 03:32:00 Basil [facility] FERRITIN) [facility] FERRITIN 2022-02-22 03:32:00 Basil [facility] COMPLEMENT COMPONENT C4 2022-02-22 03:32:00 Rubin [facility] GAGE TITER AND PATTERN 2022-02-22 03:32:00 Rubin [facility] TYPE AND SCREEN, AUTOMATED 2022-02-22 03:32:00 Clive Ortiz [facility] CBC W/PLT COUNT & AUTO 2022-02-22 03:32:00 Clive Ortiz [facility] (CELLAVISION MANUAL DIFF) 2022-02-22 03:32:00 Clive Ortiz CH, I [facility] RAPID STREP SCREEN FOR GROUP 2021-07-07 19:32:00 Kang [facility] CONSENT/REFUSAL FOR 2021-07-07 19:21:22 Doctor Unassigned, [facility] DIAGNOSIS AND TREATMENT [facility] [place] ABDOMEN PELVIS W CONTRAST 2020-06-29 21:42:[address] [facility] LIPASE 2020-06-29 20:31:00 Pamella Aquino [facility] COMP. METABOLIC PANEL 2020-06-29 20:31:00 Pamella Aquino [facility] ([id number]) [facility] CBC WITH DIFF 2020-06-29 20:31:00 Pamella Aquino [facility] URINALYSIS 2020-06-29 20:31:00 Pamella Aquino [facility] NOTICE OF PRIVACY PRACTICES 2020-06-29 20:08:[address] [facility] [place] [facility] CONSENT/REFUSAL FOR 2020-06-29 20:05:43 Doctor Ana Luisa [facility] [[facility] Trichomonas Culture 2018-04-10 00:00:00 [facility] [LH] GC/CT by Amp Det 2018-04-10 00:00:00 [facility] (APTIMA) [QH] HIV AB, HIV 1/2, EIA, 2018-04-10 00:00:00 [facility] WITH REFLEXES [QL] RPR 2018-04-10 00:00:00 [facility] s [QL] HEPATITIS PANEL 2018-04-10 00:00:00 [facility] [QL] TSH, 3RD GENERATION 2018-04-10 00:00:00 [facility] [...] Luke s Test 00:00:00 (procedure) [code = [facility] 21684631] Future Scheduled 2022-10-[address] [facility] Test 00:00:00 (procedure) [code = [facility] 23283960] Future Scheduled 2022-10-[address] [facility] Test 00:00:00 (procedure) [code = [facility] 28670378] Future Scheduled 2022-10-[address] [facility] Test 00:00:00 (procedure) [code = [facility] 12233625] Future Scheduled 2022-08-02 COVID-19 VACCINE (#1) [facility] Test 17:48:59 [code = COVID-19 VACCINE (#1)] Future Scheduled 2022-08-02 Pneumococcal Vaccine: [facility] Test 17:48:59 Pediatrics (0 to 5 Years) and At-Risk Patients (6 to 64 Years) (1 - PCV) [code = Pneumococcal Vaccine: Pediatrics (0 to 5 Years) and At-Risk Patients (6 to 64 Years) (1 - PCV)] Future Scheduled 2022-08-02 INFLUENZA VACCINE Method [facility] Test 17:48:59 [code = INFLUENZA VACCINE] Future Scheduled 2022-07-20 COVID-19 VACCINE (#1) [facility] Test 18:16:05 [code = COVID-19 VACCINE (#1)] Future Scheduled 2022-07-20 Pneumococcal Vaccine: [facility] Test 18:16:05 Pediatrics (0 to 5 Years) and At-Risk Patients (6 to 64 Years) (1 - PCV) [code = Pneumococcal Vaccine: Pediatrics (0 to 5 Years) and At-Risk Patients (6 to 64 Years) (1 - PCV)] Future Scheduled 2022-07-20 INFLUENZA VACCINE Method [facility] Test 18:16:05 [code = INFLUENZA VACCINE] Future Scheduled 2022-07-20 COVID-19 VACCINE (#1) [facility] Test 18:16:05 [code = COVID-19 VACCINE (#1)] Future Scheduled 2022-07-20 Pneumococcal Vaccine: [facility] Test 18:16:05 Pediatrics (0 to 5 Years) and At-Risk Patients (6 to 64 Years) (1 - PCV) [code = Pneumococcal Vaccine: Pediatrics (0 to 5 Years) and At-Risk Patients (6 to 64 Years) (1 - PCV)] Future Scheduled 2022-07-20 INFLUENZA VACCINE Method [facility] Test 18:16:05 [code = INFLUENZA VACCINE] [...] (#1)] Future Scheduled COVID-19 VACCINE (1) Met [facility] Hospital Test [code = COVID-19 VACCINE (1)] Future Scheduled INFLUENZA VACCINE Method ist Hospital Test [code = INFLUENZA VACCINE] Encounters Start End Encounter Admission Attending Care Care Encounter Source Date/Time Date/Time Type Type Clinicians Facility Department ID 2022-07-03 2022-07-03 Juliana Saha, 1.2.840.1 [id number] Methodi 00:00:00 00:00:[address] 3.430.2.7 Hospit a .3.995556 l .8 2022-07-03 2022-07-03 Julaina Saha 1.2.840.1 [id number] Methodi 00:00:00 00:00:[address] 3.430.2.7 Hospit a .3.547633 l .8 2022-06-09 2022-06-09 Telephone [place], [facility] [id number] 00:00[facility]00 00:00:00 [facility] 2022-06-09 2022-06-09 Telephone [place], [facility] [id number] 00:00:00 00:00:00 [facility] 2022-06-02 2022-06-02 Telephone [place], [facility] [id number] 00:00:00 00:00:00 [facility] 2022-06-02 2022-06-02 Telephone Shyam, [facility] [id number] 00:00:00 00:00:00 [facility] 2022-05-25 2022-05-28 Inpatient X JACKIE, [facility] [id number] Univers 00:29:00 10:45:00 HUBERT skelton of [facility] 2022-05-25 2022-05-28 Hospital Luis Alberto Fonseca 1.2.840.1 14 [id number] [facility] 00:29:00 10:45:00 Encounter Lincoln Rahman 350.1.13.10 ity [facility] 4.2.7.2.686 [facility] [id number] 1 [facility] JackieHubert 095 B mindy 2022-05-24 2022-05-24 Office [facility], 1.2.840.1 [id number] Methodi 14:30:00 14:40:00 Visit Damien Mejia 25900.1.[address] 3.430.2.7 Hospit a .3.811889 l .8 2022-05-24 2022-05-24 Office [facility], 1.2.840.1 [id number] Methodi 14:30:00 14:40:00 Visit Damien Mejia 83660.1.[address] 3.430.2.7 Hospit a .3.166399 l .8 2022-05-16 2022-05-16 Telephone Shyam, [facility] [id number] 00:00:00 00:00:00 [facility] 2022-05-16 2022-05-16 Telephone Shyam, [facility] [id number] 00:00:00 00:00:00 [facility] 2022-05-15 2022-05-15 Office Shan, 1.2.840.1 [id number] Methodi 10:00:00 11:45:31 Visit Yarelis 89769.1.[address] 3.430.2.7 Hospit a .3.134062 l .8 2022-05-15 2022-05-15 Office Stefano, 1.2.840.1 [id number] Methodi 10:00:00 11:45:31 Visit Yarelis 10290.1.[address] 3.430.2.7 Hospit a .3.979606 l .8 2022-05-15 2022-05-15 Telephone Pascual Chacon 1.2.840.1 [id number] Methodi 00:00:00 00:00:[address] 3.430.2.7 Hospit a .3.811889 l .8 2022-05-15 2022-05-15 Travel 1.2.840.1 1.2.566.812 2056 [id number] Methodi 00:00:00 00:00:[address] 3.430.2.7 0.2.7.3.698 Ho spita .3.746414 084.8 l .8 2022-05-15 2022-05-15 Telephone Pascual Chacon 1.2.840.1 [id number] Methodi 00:00:00 00:00:[address] 3.430.2.7 Hospit a .3.384685 l .8 2022-05-15 2022-05-15 Travel 1.2.840.1 1.2.827.643 5590 [id number] Methodi 00:00:00 00:00:[address] 3.430.2.7 0.2.7.3.698 Ho spita .3.446387 084.8 l .8 2022-05-08 2022-05-08 Telephone Carito 1.2.840.1 [id number] Methodi 00:00:00 00:00:00 , Osmar 46548.1.[address] [place] 3.430.2.7 Hosp ronald .3.912478 l .8 2022-05-08 2022-05-08 Telephone Carito 1.2.840.1 [id number] Methodi 00:00:00 00:00:00 , Osmar 13774.1.[address] [place] 3.430.2.7 Hosp ronald .3.030581 l .8 2022-05-05 2022-05-05 [facility], 1.2.840.1 [id number] Methodi 15:45:33 23:59:00 Encounter Purnima 50191.1.[address] 3.430.2.7 Hospit a .3.880627 l .8 2022-05-05 2022-05-05 [facility], 1.2.840.1 [id number] Methodi 15:45:33 23:59:00 Encounter Purnima 64957.1.[address] 3.430.2.7 Hospit a .3.763622 l .8 2022-05-05 2022-05-05 Travel 1.2.840.1 1.2.735.488 1491 [id number] Methodi 00:00:00 00:00:[address] 3.430.2.7 0.2.7.3.698 Ho spita .3.083299 084.8 l .8 2022-05-05 2022-05-05 Travel 1.2.840.1 1.2.357.147 1149 [id number] Methodi 00:00:00 00:00:[address] 3.430.2.7 0.2.7.3.698 Ho spita .3.238349 084.8 l .8 2022-05-04 2022-05-04 Telemedici Maria A, 1.2.840.1 [id number] Methodi 15:40:00 16:00:00 ne Purnima 93458.1.[address] 3.430.2.7 Hospit a .3.688271 l .8 2022-05-04 2022-05-04 Telemedici Maria A, 1.2.840.1 [id number] Methodi 15:40:00 16:00:00 ne P[place]ima 54981.1.[address] 3.430.2.7 Hospit a .3.548289 l .8 2022-04-19 2022-04-19 Office Maria A, 1.2.840.1 [id number] Methodi 14:20:00 15:51:08 Visit Purnima 14437.1.[address] 3.430.2.7 Hospit a .3.233909 l .8 2022-04-19 2022-04-19 Office Maria A, 1.2.840.1 [id number] Methodi 14:20:00 15:51:08 Visit Purnima 40208.1.[address] 3.430.2.7 Hospit a .3.911910 l .8 2022-04-19 2022-04-19 Office Deshawn [facility] [id number] 12:30:00 13:00:00 Visit [facility] 2022-04-19 2022-04-19 Office Deshawn [facility] [id number] 12:30:00 13:00:00 Visit [facility] 2022-04-19 2022-04-19 Outpatient DESHAWN [facility] [id number] [facility] 12:45:53 12:45:53 MARRY 2022-04-19 2022-04-19 Telephone [facility], 1.2.840.1 [id number] [id number] Methodi 00:00:00 00:00:[address] José Antonio 3.430.2.7 Hospit a .3.502845 l .8 2022-04-19 2022-04-19 Travel 1.2.840.1 1.2.042.890 4524 [id number] Methodi 00:00:00 00:00:[address] 3.430.2.7 0.2.7.3.698 Ho spita .3.811608 084.8 l .8 2022-04-19 2022-04-19 Telephone Atedilma, 1.2.840.1 [id number] 2099 [id number] Methodi 00:00:00 00:00:[address] José Antonio 3.430.2.7 Hospit a .3.483910 l .8 2022-04-19 2022-04-19 Travel 1.2.840.1 1.2.250.709 8100 [id number] Methodi 00:00:00 00:00:[address] 3.430.2.7 0.2.7.3.698 Ho spita .3.354847 084.8 l .8 2022-04-14 2022-04-14 Outpatient ZINA BABCOCK [id number] Zina 09:30:00 09:30:00 CARLA Payneol yesica 2022-04-13 2022-04-13 Emergency Sampson, 1.2.840.1 [id number] [id number] Methodi 14:22:00 17:25:00 [place] Light 17848.1.[address] 3.430.2.7 Hospit a .3.735577 l .8 2022-04-13 2022-04-13 Emergency Sampson, 1.2.840.1 [id number] Methodi 14:22:00 17:25:00 [place] B. 73738.1.[address] 3.430.2.7 Hospit a .3.708682 l .8 2022-04-13 2022-04-13 Travel 1.2.840.1 1.2.897.136 9795 [id number] Methodi 00:00:00 00:00:[address] 3.430.2.7 0.2.7.3.698 Ho spita .3.826614 084.8 l .8 2022-04-13 2022-04-13 Travel 1.2.840.1 1.2.054.911 2239 [id number] Methodi 00:00:00 00:00:[address] 3.430.2.7 0.2.7.3.698 Ho spita .3.717299 084.8 l .8 2022-04-04 2022-04-04 [facility] [id number] 00:00[facility]00 00[facility]00 [facility] 2022-04-04 2022-04-04 [facility] [id number] 00:00:00 00:00:00 [facility] 2022-02-22 2022-03-30 [facility] Abdelrahman Booker [facility] [id number] [facility] 02:27:00 14:30:00 Encounter Dayanraa Garcia, [facility] Jem, Naveen Renee, Nemesio Walsh, Dae Celestine Hobbs, Susan Winchester, Denisse Delaney, Arnold Smith 2022-02-22 2022-03-30 [facility] Abdelrahman Booker [facility] [id number] [facility] 02:27:00 14:30:00 Encounter Dayanara Garcia [facility] Araceli, [facility], [facility] Jem, Naveen Renee, Nemesio Walsh, Dae Hobbs, Susan Winchester, Denisse Delaney, Rodolfo Resd Broderick, [facility] 2022-02-22 2022-03-30 Inpatient ER BRODERICK, [facility] Surgery [id number] [facility] 02:27:00 14:30:00 AHMED 2022-03-04 2022-03-04 Orders [facility] [id number] 00:00:00 00:00:00 [facility] 2022-03-04 2022-03-04 Orders [facility] [id number] 00:00:00 00:00:00 [facility] 2022-03-03 2022-03-03 Outpatient [facility] [id number] [address] [place] [address] 11:45:00 23:59:00 Lauro Medicin laxmi 2022-03-02 2022-03-02 Anesthesia Candy Guevara [facility] [id number] [facility] 15:44:00 21:31:00 Event Vicente Vazquez [facility] 2022-03-02 2022-03-02 Anesthesia Candy Guevara [facility] [id number] [facility] 15:44:00 21:31:00 Event Vicente Vazquez [facility] 2022-03-02 2022-03-02 Surgery Jillian [facility] [id number] 11:21:00 18:02:00 [facility] 2022-03-02 2022-03-02 Surgery Jillian [facility] [id number] 11:21:00 18:02:00 [facility] 2022-03-02 2022-03-02 Anesthesia Vicente Vazquez [facility] [id number] 06:21:42 06:21:42 Event Yan, Gemma [facility] 2022-03-02 2022-03-02 Anesthesia Vicente Vazquez Malcom [facility] [id number] 06:21:42 06:21:42 Event Gemma Heredia [facility] 2022-02-25 2022-02-25 [facility] [id number] [facility] 11:45:00 23:59:00 [facility] 2022-02-24 2022-02-24 Outpatient [facility] [id number] [facility] 00:00:00 23:59:00 [facility] 2022-02-24 2022-02-24 [facility] [id number] 08:22:00 09:25:00 Event Vicente [facility] 2022-02-24 2022-02-24 [facility] [id number] 08:22:00 09:25:00 Event [facility] 2022-02-22 2022-02-22 Outpatient [facility] [id number] [facility] 02:27:00 23:59:00 [facility] 2022-02-22 2022-02-22 Outpatient ZINA CARTER [id number] Zina 00:00:00 00:00:00 HUSEYIN Payneol yesica 2022-02-22 2022-02-22 Travel [facility] [id number] [facility] 00:00:00 00:00:00 [facility] 2022-02-22 2022-02-22 Travel [facility] [id number] [facility] 00:00:00 00:00:00 [facility] 2021-07-07 2021-07-07 Emergency Singer [facility] 1.2.479.549 [id number] Univers 14:36:00 16:28:00 Kang Kaye 350.1.13.10 i ty [facility] 4.2.7.2.686 [facility] [id number] [place] [id number] Branch 2021-07-07 2021-07-07 Emergency X SINGER DCBLANCA ERT [id number] Univers 14:22:00 14:22:00 KANG itmackenzie of [facility] 2021-07-07 2021-07-07 Orders Doctor JAYE 1.2.840.114 [id number] Univers 00:00:00 00:00:00 Only Unassigned, BRIAN 350.1.13.10 [facility] 4.2.7.2.686 Hebert [id number] [facility] 009 Branch 2020-06-29 2020-06-29 Emergency [facility] 1.2.887.986 [id number] Univers 15:20:00 18:23:00 Pamella Tosha Kaye 350.1.13.10 i ty of [place] 4.2.7.2.[address] [facility] s Lares [id number] [place] [address] Branch 2020-06-29 2020-06-29 Emergency [facility] 1.2.350.839 [id number] 15:20:00 18:23:00 Pamella R [place] 350.1.13.10 [place] 4.2.7.2.686 Lares [id number] [facility] 2020-06-29 2020-06-29 Emergency X [facility] ERT [id number] Univers 15:07:00 15:07:00 PAMELLA skelton [facility] 2018-08-06 2018-08-06 Appointmen TIKI FONSECA [facility] [id number] [place] 14:00:00 14:00:00 t; JULIO FONSECA Phys ici NILESH, M.D. ans M.D. 2018-06-11 2018-06-11 Appointmartha ESPINOZA [facility] [id number] [place] 08:15:00 08:15:00 t; KELLY ESPINOZA D.O. Physici KERRY, ans D.O. 2018-06-10 2018-06-10 Appointmen TIKI FONSECA [facility] [id number] [place] 08:00:00 08:00:00 t; JULIO FONSECA Phys ici NILESH, M.D. ans M.D. 2018-04-10 2018-04-10 Appointmen TIKI ESPINOZA [id number] UT 08:00:00 08:00:00 t; KELLY ESPINOZA D.O. [facility] molly Parikh D.O. Results Test Description Test Time Test Comments Results Result Comments Source MAGNESIUM 2022-05-27 10:48:03 Test Item Value Reference Range Interpretation Comme nts MAGNESIUM (test code = 6274322910) 1.8 mg/dL 1.7-2.4 Lab Interpretation (test code = 81479-3) Normal [facility] METABOLIC PANEL (NA, K, CL, CO2, GLUCOSE, BUN, CREATININE, CA)2022-05-27 10:48:02 Test Item Value Reference Range Interpretation Comments NA (test code = 139 mmol/L 135-145 5057066650) K (test code = 3.9 mmol/L 3.5-5 3634737725) CL (test code = 105 mmol/L 98-108 1693528467) CO2 TOTAL (test code = 28 mmol/L 23-31 3970693397) AGAP (test code = 2-16 9724943584) BUN (test code = 6 mg/dL 7-23 L 1765720006) GLUCOSE (test code = 82 mg/dL 70-110 0903946696) CREATININE (test code = 0.62 mg/dL 0.6-1.25 2448073224) CALCIUM (test code = 9.1 mg/dL 8.6-10.6 1771285334) eGFR (test code = mL/min/1.73m2 5881569738) TOR (test code = TOR) Association of [...] tests). Lab Interpretation Abnormal (test code = 53745-1) [facility] [place] (for use with Heparin Infusion)2022-05-27 10:06:40 Test Item Value Reference Range Interpretation Comments APTT Patient (test code See_Comment H [Au tomated message] = 3173-2) The system [employer] generated this result transmitted ref erence range: 26 - 36 Seconds. The reference range was not used to int erpret this result as normal/abnormal . Lab Interpretation (test Abnormal code = 68041-4) [facility], TXCB WITHOUT [id number] 09:49:15 Test Item Value Reference Range Interpretation Comments WBC (test code = 6690-2) See_Comment [A utomated message] The system [employer] generated this result transmit zach reference range : 4.20 - 10.70 10*3/?L. The reference range was not used to interpret this result as normal/abnormal . RBC (test code = 789-8) See_Comment [Au tomated message] The system [employer] generated this result transmit zach reference range [...] 777-3) See_Comment [Au tomated message] The system [employer] generated this result transmit zach reference range : 150 - 328 10*3/?L. The reference range was not used to interpret this result as normal/abnormal . MPV (test code = 8.9 fL 9.8-13 L 70275-4) RDW-CV (test code = 17.7 % 12.1-15.4 H 788-0) RDW-SD (test code = 50.4 fL 38.5-51.6 84463-1) NRBC x10^3 (test code = See_Comment [Au tomated message] 6873434090) The system [employer] generated this result transmit zach reference range : 10*3/?L. The reference range was not used to interpret this result as normal/abnormal . NRBC/100 WBC (test code See_Comment [Au tomated message] = 7865191194) The system [employer] generated this result transmit zach reference range : 0.0 - 10.0 /100 WBC s. The reference r yo was not used to interpret this result as normal/abnormal . IPF % (test code = 7064509719) Lab Interpretation (test Abnormal code = 73063-4) [facility] (for use with Heparin Infusion)2022-05-27 02:22:26 Test Item Value Reference Range Interpretation Comments APTT Patient (test code See_Comment H [Au tomated message] = 3173-2) The system [employer] generated this result transmitted ref erence range: 26 - 36 Seconds. The reference range was not used to int erpret this result as normal/abnormal . Lab Interpretation (test Abnormal code = 12437-5) [facility] (for use with Heparin Infusion)2022-05-26 12:45:43 Test Item Value Reference Range Interpretation Comments APTT Patient (test code See_Comment H [Au tomated message] = 3173-2) The system [employer] generated this result transmitted ref erence range: 26 - 36 Seconds. The reference range was not used to int erpret this result as normal/abnormal . Lab Interpretation (test Abnormal code = 65123-1) [facility] (NA, K, CL, CO2, GLUCOSE, BUN, CREATININE, CA)2022-05-26 07:46:47 Test Item Value Reference Range Interpretation Comments NA (test code = 137 mmol/L 135-145 1767539697) K (test code = 3.5 mmol/L 3.5-5 4262160249) CL (test code = 103 mmol/L 98-108 0446072785) CO2 TOTAL (test code = 30 mmol/L 23-31 4404739188) AGAP (test code = 2-16 5583056953) BUN (test code = 10 mg/dL 7-23 7119793392) GLUCOSE (test code = 121 mg/dL 70-110 H 9554356653) CREATININE (test code = 0.73 mg/dL 0.6-1.25 7079517567) CALCIUM (test code = 8.3 mg/dL 8.6-10.6 L 6686453274) eGFR (test code = mL/min/1.73m2 4590772365) TOR (test code = TOR) Association of [...] tests). Lab Interpretation Abnormal (test code = 69414-3) [facility] [place]MAG[place]UM2022-07-08 07:46:47 Test Item Value Reference Range Interpretation Comments MAGNESIUM (test code = 1798272746) 1.9 mg/dL 1.7-2.4 Lab Interpretation (test code = Normal 51125-9) [facility] [place]aPTT (for use with Heparin Infusion)2022-05-26 07:27:48 Test Item Value Reference Range Interpretation Comments APTT Patient (test code See_Comment H [Au tomated message] = 5433-2) The system [employer] generated this result transmitted ref erence range: 26 - 36 Seconds. The reference range was not used to int erpret this result as normal/abnormal . Lab Interpretation (test Abnormal code = 96748-7) [facility], TXCB WITH [id number] 07:16:47 Test Item Value Reference Range Interpretation [...] RDW-SD (test code = 50.2 fL 38.5-51.6 39675-6) RDW-CV (test code = 17.3 % 12.1-15.4 H 788-0) PLT (test code = See_Comment [Automated 777-3) message] The sy stem which generated this result transmitted reference range : 150 - 328 10*3/ ?L. The reference r yo was not used to interpret this result as normal/abnormal . MPV (test code = 8.8 fL 9.8-13 L 17953-8) NRBC/100 WBC (test See_Comment [Automat ed code = 9878719850) message] The system which generated this result transmitted reference range : 0.0 - 10.0 /100 WBCs. The refer ence range was not u sed to interpret th is result as normal/abnormal . NRBC x10^3 (test code See_Comment [Auto mated = 4520020006) message] The s ystem which generated this result transmitted reference range : 10*3/?L. The reference range was not used to interpret this result as normal/abnormal . GRAN MAT (NEUT) % 34.4 % (test code = 770-8) IMM GRAN % (test code 0.30 % = 1014885138) LYMPH % (test code = 50.3 % 736-9) MONO % (test code = 9.4 % 5905-5) EOS % (test code = 5.1 % 713-8) BASO % (test code = 0.5 % 706-2) GRAN MAT x10^3(ANC) 2.65 10*3/uL 1.99-6.95 (test code = 4790472501) IMM GRAN x10^3 (test 0-0.06 code = 6823148296) LYMPH x10^3 (test code 3.87 10*3/uL 1.09-3.23 H = 731-0) MONO x10^3 (test code 0.72 10*3/uL 0.36-1.02 = 742-7) EOS x10^3 (test code = 0.39 10*3/uL 0.06-0.53 711-2) BASO x10^3 (test code 0.04 10*3/uL 0.01-0.09 = 704-7) Lab Interpretation Abnormal (test code = 91436-4) [facility] [place]aPTT (for use with Heparin Infusion)2022-05-25 18:56:58 Test Item Value Reference Range Interpretation Comments APTT Patient (test code See_Comment H [Au tomated message] = 3173-2) The system [employer] generated this result transmitted ref erence range: 26 - 36 Seconds. The reference range was not used to int erpret this result as normal/abnormal . Lab Interpretation (test Abnormal code = 05351-5) [facility] [place] (TTE[place]2022-05-25 17:29:20 Test Item Value Reference Range Interpretation Comments Height (test code = in [id number]) Weight (test code = lbs 1688002919) Systolic BP (test code mmHg = 8667874350) Diastolic BP (test mmHg code = 9670649525) Heart Rate (test code bpm = 6087325576) LVOT stroke volume 52.70 cm3 (test code = 0255357088) EF(Teich) (test code = 48.50 % 3480471597) LVIDD (test code = 4.30 cm 6689985855) LVIDS (test code = 3.30 cm 9872824044) IVS (test code = 1.11 cm 9695283696) LVPWD (test code = 1.12 cm 0457136060) LVOT diameter (test 1.91 cm code = 1727114000) FS (test code = 24 % 9937048888) MV Peak E Elena (test 144.8 cm/s code = 7532590627) MV Peak A Elena (test 120.0 cm/s code = 1307292738) E/A ratio (test code = ratio 0563833031) E wave decelartion 0.31 s time (test code = 1536263513) LA volume (BP) (test 44.7 mL code = 7842894355) LVOT peak elena (test 110.1 cm/s code = 9952363218) LVOT mn grad (test mmHg code = 8402148682) LA size (test code = 3.1 cm 8384227269) LAV(MOD-sp2) (test 46.60 mL code = 6078162235) LAV(MOD-sp4) (test 37.90 mL code = 8316031537) Tapse (test code = 1.60 cm 5461183917) Aortic valve mean Invalid cm/s velocity (test code = 0815399400) Ao peak elena (test code 112.5 cm/s = 0269367892) Ao VTI (test code = Invalid cm 2615844368) AV LVOT peak gradient mmHg (test code = 6852486554) LVOT peak VTI (test 18.3 cm code = 7164977316) AV area peak elena (test 2.8 cm2 code = 2420358433) LV V1 mean (test code 73.20 cm/s = 5449898379) Ao max PG (test code = 5.10 mm[Hg] 5144443902) MV Prop V (test code = 58.30 cm/s 6756730300) TR Peak Elena (test code 206.1 cm/s = 5977392062) Triscuspid Valve mmHg Regurgitation Peak Gradient (test code = 9597791753) Ao root annulus (test 3.4 cm code = 3038769552) Ao root diam (test 3.40 cm code = 9090552322) AV peak gradient (test mmHg code = 5814157904) AV mean gradient (test Invalid mmHg code = 9151021234) Aortic root (test code 3.4 cm = 8232057287) PW (test code = 1.12 cm 0.6-1.5 4176325216) EF - 2D (test code = 48.50 % 62182450) Interventricular 1.11 cm Septum Diastolic Thickness by 2D (test code = 6616604) LA Volume Index (BP) 22.7 mL/m2 (test code = 9809509581) BSA (test code = 1.97 m2 0508408627) MV mean gradient (test mmHg code = 1548760798) MV valve area by 1.40 cm2 continuity eq (test code = 7195874792) MV VTI (test code = 37.6 cm 2221617532) MV V2 mean (test code 107.90 cm/s = 6299717365) MV peak gradient (test mmHg code = 2534067877) MV pk elena (test code = 156.9 cm/s 3975288766) LV Diastolic Volume 110.2 mL (BP) (test code = 9212665708) EF(MOD-bp) (test code 43.90 % = 5364701524) LV Systolic Volume 61.8 mL (BP) (test code = 0530112595) SV(MOD-bp) (test code 48.40 mL = 4759450370) EF (test code = 44 % 6947014907) Left Ventricular 48.4 mL Stroke Volume by 2-D Biplane-MOD (test code = 3945016) Radiology Study observation (narrative) (test code = 05443-0) TOR (test code = TOR) ?Left?Ventricle: Left [...] were obtained. Lumason ultrasound enhancing agent used. [facility] [id number] 17:23:52 Test Item Value Reference Interpretation Comments Range TROPONIN I (test 0.139 ng/mL See_Comment H [Automated code = 6254843601) message] The system which generated this result [...] biotin. Lab Interpretation Abnormal (test code = 34232-3) [facility] [id number] 12:28:52 Test Item Value Reference Interpretation Comments Range TROPONIN I (test 0.175 ng/mL See_Comment H [Automated code = 5667243116) message] The system which generated this result [...] biotin. Lab Interpretation Abnormal (test code = 69525-0) [facility] [place], [place]Lactate [id number] 12:11:11 Test Item Value Reference Range Interpretation Comments LDH (test code = 7366810943) 224 U/L 120-246 Lab Interpretation (test code = Normal 63956-3) [facility] [place], TXProthrombin Time / [id number] 12:05:30 Test Item Value Reference Range Interpretation Comments PROTIME PATIENT (test See_Comment H [Auto mated message] code = 5964-2) The system ich generated this result transmitted ref erence range: 10.1 - 1 2.6 Seconds. The reference range was not used to int erpret this result as normal/abnormal . INR (test code = 6301-6) Nor mal INR <1.1; Warfarin Therap eutic range 2.0 to 3. 0 or 2.5 to 3.5, dep ending upon the indica tions. Lab Interpretation (test Abnormal code = 51667-4) [facility] [place], TXACTIVATED PARTIAL THRMPLAS [id number] 12:05:30 Test Item Value Reference Range Interpretation Comments APTT Patient (test code = See_Comment [ Automated message] 3173-2) The system ZEFR h generated this result transmitted ref erence range: 26 - 36 Seconds. The re ference range was not u sed to interpret this result as normal/abnor mal. Lab Interpretation (test Normal code = 97741-0) [facility] [place], TXAC PANEL 21 + LACTIC [id number] 11:30:40 Test Item Value Reference Range Interpretation Comments PH (test code = 7.32-7.42 1427030219) PCO2 TAL (test code = See_Comment [Auto mated 1957657112) message] The sy stem which generated this result transmitted reference range : 41 - 51 mmHg. The reference range was not used to interpret this result as normal/abnormal . PO2 TAL (test code = See_Comment [Autom ated 1980838735) message] The sy stem which generated this result transmitted reference range : 25 - 40 mmHg. The reference range was not used to interpret this result as normal/abnormal . HCO3 TAL (test code = See_Comment [Auto mated 3028621534) message] The sy stem which generated this result transmitted reference range : 24 - 28 mEq/L. The reference range was not used to interpret this result as normal/abnormal . AC VBE(BEAKER) (test mEq/L code = 0656046690) THB TAL (test code = 13.7 g/dL 13.5-18 0185815171) %O2HB TAL (test code = 68.9 % 52-63 H 6606495865) %COHB TAL (test code = 1.2 % 0-1.5 1949179621) %METHB TAL (test code = 0.1 % 0.4-1.5 L 6896917158) VOL%O2 TAL (test code = 13.2 % 6-12 H 0314070705) NA (test code = 135 mmol/L 135-145 0577330838) K+ (test code = 4.4 mmol/L 3.5-5 9359362923) AC CA IONZ (test code = 4.60 mg/dL 4.5-5.3 3398269838) GLUCOSE (test code = 91 mg/dL 70-110 5218187180) LACTIC ACID (test code 1.73 mmol/L 0.5-2.2 = 5988751696) Lab Interpretation Abnormal (test code = 17921-0) [facility] [place], TXSALICYLATE2022-07-07 10:25:21 SALICYLATE<10mg/L05/25/2022 5:25 AM [facility] Range: ? Analgesic and Antipyretic Use ? 20- 100 mg/L ? ? Anti-Inflammatory Use ? 100-250 mg/L Toxic Range: ? Greater than 300 mg/[facility]UnNe[facility] [id number] 09:06:27 Test Item Value Reference Range Interpretation Comments FREE T4 (test code = See_Comment [Autom ated message] 3625426098) The system Ceres generated this result transmitted ref erence range: 0.78 - 2 .20 ng/dL:. The ref erence range was not u sed to interpret this result as normal/abnor mal. Lab Interpretation (test Normal code = 47827-4) [facility] [place], TXCREATINE [id number] 08:48:48 Test Item Value Reference Range Interpretation Comments CK (test code = 4202093191) 128 U/L 33-194 Lab Interpretation (test code = Normal 58259-5) [facility] [place], TXTHYROID STIMULATING [id number] 06:48:55 Test Item Value Reference Range Interpretation Comments TSH (test code = See_Comment [Automated message] 6578788560) The system Ceres generated this result transmitted ref erence range: 0.45 - 4 .70 mIU/L. The refe rence range was not u sed to interpret this result as normal/abnor mal. Lab Interpretation (test Normal code = 61067-7) [facility] WITH [id number] 06:33:20 Test Item Value Reference Range Interpretation Comments WBC (test code = See_Comment H [Automated 6390-2) message] The system which generated this result transmit zach reference range : 4.20 - 10.70 10*3/?L. The reference range was not used to interpret this result as normal/abnormal . RBC (test code = See_Comment [Automated 279-8) message] The system which generated this result [...] (test code = 55.2 fL 38.5-51.6 H 03629-9) RDW-CV (test code = 18.0 % 12.1-15.4 H 788-0) PLT (test code = See_Comment H [Automated 777-3) message] The system which generated this result transmit zach reference range : 150 - 328 10*3/ ?L. The reference range was not u sed to interpret th is result as normal/abnormal . MPV (test code = 8.8 fL 9.8-13 L 68047-2) NRBC/100 WBC (test See_Comment [Automat ed code = 7710060309) message] The system which generated this result transmit zach reference range : 0.0 - 10.0 /100 WBCs. The reference range was not used to interpret this result as normal/abnormal . NRBC x10^3 (test code See_Comment [Auto mated = 9235365013) message] The system which generated this result transmit zach reference range : 10*3/?L. The reference range was not used to interpret this result as normal/abnormal . GRAN MAT (NEUT) % 64.9 % (test code = 770-8) IMM GRAN % (test code 1.00 % = 1757593090) LYMPH % (test code = 25.2 % 736-9) MONO % (test code = 6.9 % 5905-5) EOS % (test code = 1.6 % 713-8) BASO % (test code = 0.4 % 706-2) GRAN MAT x10^3(ANC) 12.45 10*3/uL 1.99-6.95 H (test code = 3007055495) IMM GRAN x10^3 (test 0.19 10*3/uL 0-0.06 H code = 7440101158) LYMPH x10^3 (test code 4.83 10*3/uL 1.09-3.23 H = 731-0) MONO x10^3 (test code 1.32 10*3/uL 0.36-1.02 H = 742-7) EOS x10^3 (test code = 0.31 10*3/uL 0.06-0.53 711-2) BASO x10^3 (test code 0.08 10*3/uL 0.01-0.09 = 704-7) BANDS (test code = Increased A 6448488770) REACT LYMPHS (test Rare code = 0757180893) Lab Interpretation Abnormal (test code = 53623-4) [facility] [place], TXTROPONIN [id number] 06:30:28 Test Item Value Reference Interpretation Comments Range TROPONIN I (test 0.069 ng/mL See_Comment H [Automated code = 0148590808) message] The system which generated this result [...] biotin. Lab Interpretation Abnormal (test code = 94271-0) [facility] [place], TXN-TERMINAL [id number] 06:27:33 Test Item Value Reference Range Interpretation Comments NT-proBNP (test code 890 pg/mL See_Comment H [Autom ated = 0660571197) message] The system which generated this result transmitted reference range : <=125. The reference range was not used to interpret this result as normal/abnormal . TOR (test code = TOR) Biotin has been reported to cause a negative bias, interpret results relative to patient's use of biotin. Lab Interpretation Abnormal (test code = 11990-0) [facility] [place], TXETHANOL2022-07-07 06:22:52 ALCOHOL<10mg/dL05/25/2022 1:22 AM [facility]<10 Ieapwivz68-153 Toxic>100 Depression of SALES [employer] DEVELOPER>400 Fatal[facility]ortedUnHe[facility] CenterACETAMINOPHEN2022-07-07 06:22:41 Test Item Value Reference Range Interpretation Comments ACETAMINOP (test code = 10-30 L 8574316879) TOR (test code = TOR) Toxic: Greater than 200 ug/mL @ 4 hour post ingestion or greater than 50 ug/mL @ 12 hour post ingestion Lab Interpretation (test Abnormal code = 62883-1) [facility] [place], TXMAGNESIUM2022-07-07 06:18:50 Test Item Value Reference Range Interpretation Comments MAGNESIUM (test code = 9891929120) 2.9 mg/dL 1.7-2.4 H Lab Interpretation (test code = Abnormal 29634-5) [facility] [place], TXCOM. METABOLIC PANEL (63267)2022-05-25 06:18:49 Test Item Value Reference Range Interpretation Comments NA (test code = 136 mmol/L 135-145 7211021255) K (test code = 4.7 mmol/L 3.5-5 9288114178) CL (test code = 95 mmol/L 98-108 L 5380164624) CO2 TOTAL (test code = 23 mmol/L 23-31 4340259309) AGAP (test code = 2-16 H 2241901108) BUN (test code = 12 mg/dL 7-23 2064793567) GLUCOSE (test code = 174 mg/dL 70-110 H 7349733001) CREATININE (test code = 1.35 mg/dL 0.6-1.25 H 8317260035) TOTAL BILI (test code = 0.4 mg/dL 0.1-1.7 0741571214) CALCIUM (test code = 9.8 mg/dL 8.6-10.6 4030464531) T PROTEIN (test code = 8.0 g/dL 6.3-8.2 2414210610) ALBUMIN (test code = 5.4 g/dL 3.5-5 H 3509967906) ALK PHOS (test code = 101 U/L 34-122 0470144715) ALTv (test code = 32 U/L 5-50 1742-6) AST(SGOT) (test code = 47 U/L 13-40 H 3948325836) eGFR (test code = mL/min/1.73m2 5759465410) TOR (test code = TOR) Association of [...] tests). Lab Interpretation Abnormal (test code = 79026-3) [facility] [place], TXLIPASE2022-07-07 06:18:09 Test Item Value Reference Range Interpretation Comments LIPASE (test code = 5814628884) 50 U/L 0-220 Lab Interpretation (test code = Normal 57328-3) [facility] [place], TXACTIVATED PARTIAL THRMPLAS [id number] 06:08:06 Test Item Value Reference Range Interpretation Comments APTT Patient (test See_Comment [Automat ed code = 3173-2) message] The system which generated this result transmitted reference range : 23 - 38 Seconds . The reference range was not used to interpr et this result as normal/abnormal . TOR (test code = TOR) The [facility] patient population mean normal value for aPTT is 30 seconds. Lab Interpretation Normal (test code = 46621-9) [facility] [place], TXPROTHROMBIN TIME / [id number] 06:06:11 Test Item Value Reference Range Interpretation [...] tions. Lab Interpretation (test Normal code = 13886-5) [address]2022-06-28 15:10:13 Test Item Value Reference Range Interpretation Comments Ventricular rate (test code = 253) Atrial rate (test code = 255) DC interval (test code = 266) QRSD interval (test code = 260) QT interval (test code = 264) QTC interval (test code = 265) P axis 1 (test code = 267) QRS axis 1 (test code = 268) T wave axis (test code = 270) EKG impression (test Normal sinus code = 273) lplsjl-Orr-uoffelxd change in ST segment in-Abnormal ECG-In automated comparison with ECG of 13-APR-2022 14:23,-Nonspecific T wave abnormality now evident in Anterior leads- [address]2022-06-28 15:10:13 Test Item Value Reference Range Interpretation Comments Ventricular rate (test code = 253) Atrial rate (test code = 255) DC interval (test code = 266) QRSD interval (test code = 260) QT interval (test code = 264) QTC interval (test code = 265) P axis 1 (test code = 267) QRS axis 1 (test code = 268) T wave axis (test code = 270) EKG impression (test Normal sinus code = 273) yrbpgb-Jbl-rqowdjax change in ST segment in-Abnormal ECG-In automated comparison with ECG of 13-APR-2022 14:23,-Nonspecific T wave abnormality now evident in Anterior leads- [address]2022-06-28 15:10:13 Test Item Value Reference Range Interpretation Comments Ventricular rate (test code = 253) Atrial rate (test code = 255) DC interval (test code = 266) QRSD interval (test code = 260) QT interval (test code = 264) QTC interval (test code = 265) P axis 1 (test code = 267) QRS axis 1 (test code = 268) T wave axis (test code = 270) EKG impression (test Normal sinus code = 273) zofvzq-Xlv-qmubluzc change in ST segment in-Abnormal ECG-In automated comparison with ECG of 13-APR-2022 14:23,-Nonspecific T wave abnormality now evident in Anterior leads- [facility]2022-04-21 09:27:43 Test Item Value Reference Range Interpretation Comments Result (test code = No acid-fast bacilli 6463-4) isolated in 42 days AFB Smear (test code = No acid fast bacilli 15455-3) [facility]2022-04-21 09:27:43 Test Item Value Reference Range Interpretation Comments Result (test code = No acid-fast bacilli 6463-4) isolated in 42 days AFB Smear (test code = No acid fast bacilli 54250-1) [facility] smear (non-sputum)2022-04-21 09:27:43 Test Item Value Reference Range Interpretation Comments Result (test code = No acid-fast bacilli 6463-4) isolated in 42 days AFB Smear (test code = No acid fast bacilli 67807-6) [facility] (non-sputum)2022-04-21 09:27:43 Test Item Value Reference Range Interpretation Comments Result (test code = No acid-fast bacilli 6463-4) isolated in 42 days AFB Smear (test code = No acid fast bacilli 07276-9) [facility] SMEAR (NON-SPUTUM)2022-04-21 09:27:43 [...] code = 994) seen Fungus culture + [id number] 16:57:35 Test Item Value Reference Range Interpretation Comments Result (test code = No fungus isolated in 6463-4) 28 days Fungus Smear (test No fungi seen code = 1406) [facility] + [id number] 16:57:35 Test Item Value Reference Range Interpretation Comments Result (test code = No fungus isolated in 6463-4) 28 days Fungus Smear (test No fungi seen code = 1406) [facility] + [id number] 16:57:35 Test Item Value Reference Range Interpretation Comments Result (test code = No fungus isolated in 6463-4) 28 days Fungus Smear (test No fungi seen code = 1406) [facility] + [id number] 16:57:35 Test Item Value Reference Range Interpretation Comments Result (test code = No fungus isolated in 6463-4) 28 days Fungus Smear (test No fungi seen code = 1406) [facility] + [id number] 16:57:35 Test Item Value Reference Range Interpretation Comments CULTURE (BEAKER) (test No fungus isolated in code = 1095) 28 days FUNGUS SMEAR (BEAKER) No fungi seen (test code = 1406) FUNGUS CULTURE + [id number] 16:57:35 Test Item Value Reference Range Interpretation Comments CULTURE (BEAKER) (test No fungus isolated in code = 1095) 28 days FUNGUS SMEAR (BEAKER) No fungi seen (test code = 1406) [id number] 06:09:26 Test Item Value Reference Range Interpretation Comments MAGNESIUM (BEAKER) (test code = 2.3 mg/dL 1.6-2.6 627) Cooler Room Worker ID - BSBASIC METABOLIC [id number] 06:09:25 Test Item Value Reference Range Interpretation [...] S NOT APPLICABLE FOR DIALYSIS PATIEN TS. Cooler Room Worker ID - BSCBC (HEMOGRAM ONLY)2022-03-30 05:42:06 Test [...] WBC 0-0 (BEAKER) (test code = 413) [id number] 07:33:38 Test Item Value Reference Range Interpretation Comments MAGNESIUM (BEAKER) (test code = 2.3 mg/dL 1.6-2.6 627) Cooler Room Worker ID - BSBASIC METABOLIC [id number] 07:33:37 Test Item Value Reference Range Interpretation [...] S NOT APPLICABLE FOR DIALYSIS PATIEN TS. Cooler Room Worker ID - BSCBC (HEMOGRAM ONLY)2022-03-28 06:40:03 Test [...] (BEAKER) (test code = 413) BASIC METABOLIC [id number] 06:37:43 Test Item Value Reference Range Interpretation [...] S NOT APPLICABLE FOR DIALYSIS PATIEN TS. Cooler Room Worker ID - ADRIENNE [id number] 06:02:38 Test Item Value Reference Range Interpretation Comments MAGNESIUM (BEAKER) (test code = 2.2 mg/dL 1.6-2.6 627) Cooler Room Worker ID - ADRIENNE LCBC (HEMOGRAM ONLY)2022-03-26 05:38:14 [...] 2D Echo W/Doppler(CW/PW/Color)2022-03-26 02:14:29Ejection [facility]SLEH [facility]/Doppler(CW/PW/Color)2022-03-26 02:14:29Ejection FractionSLEH ECHO [facility]ARTLAB [facility] W/Doppler(CW/PW/Color) 2022-03-26 02:14:29Ejection FractionSLEH ECHO [facility]LAB [facility] W/Doppler(CW/PW/Color)2022-03-26 02:14:29Ejection FractionSLEH ECHO [facility]ARTLAB [facility] CenterBASI METABOLIC [id number] 06:40:25 Test Item Value Reference Range Interpretation [...] S NOT APPLICABLE FOR DIALYSIS PATIEN TS. Cooler Room Worker ID - CLIVE [id number] 06:34:50 Test Item Value Reference Range Interpretation Comments MAGNESIUM (BEAKER) 1.7 mg/dL 1.6-2.6 Specimen slightly (test code = 627) hemolyzed Cooler Room Worker ID - CLIVE GCBC (HEMOGRAM ONLY)2022-03-24 06:26:20 [...] Comments SARS-COV2/RT-PCR (test Negative Negative code = 11345-6) TOR (test code = TOR) Negative result [...] the Act. Testing was performed using the [employer] SARS-CoV-2 assay. Fact Sheet for Healthcare Providers:https://www.cheryl aviles/amanda/RT SARS-CoV-2 HCP Fact Sheet 51-292887.pdf Fact Sheet for Healthcare Patients:https://www.ana perez/amanda/RT SARS-CoV-2 Patient Fact Sheet EN 51-095507B3.pdf Lab Interpretation Normal (test code = 48949-9) [facility]22-[facility]-23 02:14:16 Test Item Value Reference Range Interpretation Comments SARS-COV2/RT-PCR (test Negative Negative code = 80731-7) TOR (test code = TOR) Negative result [...] the Act. Testing was performed using the Oncovision SARS-CoV-2 assay. Fact Sheet for Healthcare Providers:https://www.cheryl aviles/amanda/RT SARS-CoV-2 HCP Fact Sheet 51-234387.pdf Fact Sheet for Healthcare Patients:https://www.ana perez/amanda/RT SARS-CoV-2 Patient Fact Sheet EN 51-436757T0.pdf Lab Interpretation Normal (test code = 05849-6) [facility]2022-03-23 02:14:16 Test Item Value Reference Range Interpretation Comments SARS-COV2/RT-PCR (test Negative Negative code = 83158-2) TOR (test code = TOR) Negative result [...] the Act. Testing was performed using the Oncovision SARS-CoV-2 assay. Fact Sheet for Healthcare Providers:https://www.cheryl aviles/amanda/RT SARS-CoV-2 HCP Fact Sheet 51-872833.pdf Fact Sheet for Healthcare Patients:https://www.ana perez/amanda/RT SARS-CoV-2 Patient Fact Sheet EN 51-346479F9.pdf Lab Interpretation Normal (test code = 37778-3) [facility]2022-03-23 02:14:16 Test Item Value Reference Range Interpretation Comments SARS-COV2/RT-PCR (test Negative Negative code = 97441-5) TOR (test code = TOR) Negative result [...] Healthcare Providers:https://www.cheryl aviles/amanda/RT SARS-CoV-2 HCP Fact Sheet 51-255534.pdf Fact Sheet for Healthcare Patients:https://www.ana perez/amanda/RT SARS-CoV-2 Patient Fact Sheet EN 51-025568O9.pdf Lab Interpretation Normal (test code = 26621-2) [facility])2022-03-23 02:14:16 Test Item Value Reference Range Interpretation Comments SARS-COV2/RT-PCR (test code = Negative Negative 5184229) Negative result for this test determines that [...] 564(g) of the Act.Testing was performed using [employer] SARS-CoV-2 assay.Fact Sheet for Healthcare Providers:https://www.[employer].valdes/amanda/RT SARS-CoV-2 HCP Fact Sheet 51- 539544.pdfFact Sheet for Healthcare Patients:https://www.[employer].valdes/amanda/RT SARS-CoV-2 Patient Fact Sheet EN 51-072720G9.mvsRDRXTFHSB8253-18-83 11:48:01 Test Item Value Reference Range Interpretation Comments MAGNESIUM (BEAKER) (test code = 2.3 mg/dL 1.6-2.6 627) Cooler Room Worker ID - BSBASIC METABOLIC [id number] 05:47:02 Test Item Value Reference Range Interpretation [...] S NOT APPLICABLE FOR DIALYSIS PATIEN TS. Cooler Room Worker ID - CHRIS MCBC (HEMOGRAM ONLY)2022-03-22 05:08:26 [...] (BEAKER) (test code = 413) BASIC METABOLIC [id number] 05:50:37 Test Item Value Reference Range Interpretation [...] S NOT APPLICABLE FOR DIALYSIS PATIEN TS. Cooler Room Worker ID Christopher BARRY [id number] 05:50:37 Test Item Value Reference Range Interpretation Comments MAGNESIUM (BEAKER) (test code = 2.2 mg/dL 1.6-2.6 627) Cooler Room Worker ID Christopher BARRY WCBC (HEMOGRAM ONLY)2022-03-20 05:16:27 [...] (BEAKER) (test code = 413) HEPATIC FUNCTION [id number] 18:46:08 Test Item Value Reference Range Interpretation [...] (test code = 26 U/L 6-55 347) Cooler Room Worker ID - BERTHA [id number] 06:20:38 Test Item Value Reference Range Interpretation Comments MAGNESIUM (BEAKER) (test code = 2.2 mg/dL 1.6-2.6 627) Cooler Room Worker ID Christopher BARRY WBASIC METABOLIC [id number] 06:20:37 Test Item Value Reference Range Interpretation [...] S NOT APPLICABLE FOR DIALYSIS PATIEN TS. Cooler Room Worker ID - ASHA WCBC (HEMOGRAM ONLY)2022-03-18 07:10:29 [...] (BEAKER) (test code = 413) BASIC METABOLIC [id number] 07:03:46 Test Item Value Reference Range Interpretation [...] S NOT APPLICABLE FOR DIALYSIS PATIEN TS. Cooler Room Worker ID - ASHA [id number] 07:01:20 Test Item Value Reference Range Interpretation Comments MAGNESIUM (BEAKER) (test code = 2.1 mg/dL 1.6-2.6 627) Cooler Room Worker ID - ASHA [id number] 08:38:36 Test Item Value Reference Range Interpretation Comments MAGNESIUM (BEAKER) (test code = 2.1 mg/dL 1.6-2.6 627) Cooler Room Worker ID - DBBASIC METABOLIC [id number] 08:38:35 Test Item Value Reference Range Interpretation [...] S NOT APPLICABLE FOR DIALYSIS PATIEN TS. Cooler Room Worker ID - [id number] 13:32:40 Test Item Value Reference Range Interpretation Comments MAGNESIUM (BEAKER) (test code = 2.0 mg/dL 1.6-2.6 627) Cooler Room Worker ID - BSBASIC METABOLIC [id number] 13:32:39 Test Item Value Reference Range Interpretation [...] S NOT APPLICABLE FOR DIALYSIS PATIEN TS. Cooler Room Worker ID - BSCBC (HEMOGRAM ONLY)2022-03-16 08:32:01 Test [...] 0-0 (BEAKER) (test code = 413) SARS-COV2/RT-PCR ([facility])2022-03-16 01:26:39 Test Item Value Reference Range Interpretation Comments SARS-COV2/RT-PCR (test Negative Not Detected, Negative, code = 1734861) See external report for linked test SARS-COV-2 PERFORMING LAB [facility] (test code = 4529312) Negative result for this test determines that [...] of the Act.Fact Sheet for Healthcare Prov iders:https://www.[employer]plificare/sites/default/files/product/documents/Fact_Sheet_HC _Lgqnmknhn_Exrn_GRFR-GqN-0.pdfFact Sheet for Healthcare Patients:[email or web address] Laboratory:[facility].[place], [place] [id number] 06:37:58 Test Item Value Reference Range Interpretation Comments MAGNESIUM (BEAKER) (test code = 2.0 mg/dL 1.6-2.6 627) Cooler Room Worker ID - BSBASIC METABOLIC [id number] 06:37:57 Test Item Value Reference Range Interpretation [...] S NOT APPLICABLE FOR DIALYSIS PATIEN TS. Cooler Room Worker ID - BSBASIC METABOLIC [id number] 07:22:38 Test Item Value Reference Range Interpretation [...] S NOT APPLICABLE FOR DIALYSIS PATIEN TS. Cooler Room Worker ID - PIAYA [id number] 07:22:38 Test Item Value Reference Range Interpretation Comments MAGNESIUM (BEAKER) (test code = 1.9 mg/dL 1.6-2.6 627) Cooler Room Worker ID - PIAYA LCBC (HEMOGRAM ONLY)2022-03-14 07:10:08 [...] = 413) RAD, ANKLE, MIN 3 VIEWS, [id number] 19:19:00Reason for exam:->pain. [facility] 2000 Sex: MFINAL REPORT TECHNIQUE: Three views of the left ankle. INDICATION: pain.. COMPARISON: None. FINDINGS: The oblique view is suboptimal. No acute fractures or dislocations.Joint spacesare within normal limits.Mild soft tissue swelling of the dorsum of the midfoot. IMPRESSION: No acute bone abnormality of the left ankle. Signed: Jackie Miller Verified Date/Time: 03/13/2022 19:19 :26 Limited 2D [id number] 16:46:16Ejection FractionSLEH ECHO HEARTLAB [facility]ited [facility]D [id number] 16:46:16Ejection FractionSLEH ECHO HEARTLAB [facility]D [id number] 16:46:16Ejection FractionSLEH ECHO HEARTLAB MK[facility] Echocardiogram 2022-03-13 16:46:16Ejection FractionSLEH ECHO HEARTLAB [facility]ON [facility] CenterBASIC METABOLIC [id number] 08:30:32 Test Item Value Reference Range Interpretation [...] S NOT APPLICABLE FOR DIALYSIS PATIEN TS. Cooler Room Worker ID - [id number] 08:30:31 Test Item Value Reference Range Interpretation Comments MAGNESIUM (BEAKER) 2.1 mg/dL 1.6-2.6 Specimen slightly (test code = 627) hemolyzed Cooler Room Worker ID - DBRAD, CHEST, 1 VIEW, NON [id number] 07:53:00Reason for exam:- >s/p [facility] [place] : 2000 Sex: MFINAL REPORT RAD, CHEST, [...] findings: None. Signed: Christi Bhatti Verified Date/Time: 03/12/2022 07:53:35 BASIC METABOLIC [id number] 05:15:17 Test Item Value Reference Range Interpretation [...] S NOT APPLICABLE FOR DIALYSIS PATIEN TS. Cooler Room Worker ID - PIAYA [id number] 05:15:17 Test Item Value Reference Range Interpretation Comments MAGNESIUM (BEAKER) (test code = 1.8 mg/dL 1.6-2.6 627) Cooler Room Worker ID - ADRIENNE LCBC (HEMOGRAM ONLY)2022-03-12 04:40:22 Test Item Value [...] WBC 0-0 (BEAKER) (test code = 413) [id number] 12:03:27 Test Item Value Reference Range Interpretation Comments MAGNESIUM (BEAKER) (test code = 1.8 mg/dL 1.6-2.6 627) Cooler Room Worker ID - CHRIS MBASIC METABOLIC [id number] 12:03:26 Test Item Value Reference Range Interpretation [...] S NOT APPLICABLE FOR DIALYSIS PATIEN TS. Cooler Room Worker ID - CHRIS MRAD, CHEST, 1 VIEW, NON [id number] 09:48:00Reason for exam:->s/p [facility] 2000 Sex: MFINAL REPORT RAD, CHEST, [...] code Surgical Pathology = 104) Report Case: [id number] Authorizing Provider: Jillian Dae Rocaluis carlos, Collected: 03/02/2022 06:37 PM Ordering Location: [facility] Received: 03/03/2022 02:09 PM PERIOPERATIVE SERVICES Pathologist: Suzanne Camargo MD Specimen: Mitral Valve, Mitral Valve Leaflet DIAGNOSIS (test code = i6lyfXYdCLTim0yyKNPmaKC 3220) uZzEwMzNcZnRuYmpcdWMxIH tccnRmMVxlcGljOTYwMVxhb rAfPCSgmFGsB0HeswlxEZsm JR0pUT5qgXeioIObkTHnNPY eVhVju2vtw907dFIlu0ynES HKhvjseJq2sNtoA26bj6V9K dhmO31lyIHpVBS8LBAgRNVm fRQlFHFqFOJ3DADphWMbH7h wTXPiDM4dxoidHCgrHWkkFB ForHX6AAOivOPlG0YqDGInU HewEXUgwom2OyPcYr5umAHd eTcyMFxwYXJkXHBsYWluXGZ zMjAgTUlUUkFMIFZBTFZFIE aSBCNZDYJLEGNQQPRXJ8gOJ dhuXSEfsTLtZT2tIhNIHrGL LABgCNtNY2JKWLdPFKkePZZ RPRSeGA0XCMCCNUUBHF0HGS HOBVCLFP1QMQBQXLbKStToO ZpEYCGFYCiwQAWnXrk7XgGv PBLMJfUpF9ZUSjBUDVUHU96 tFHsEV6ORHKCjvc19RIG8Sh Hxw7J1RUY5NOFvQCMnr5ucE GVmbGFuZzEwMzNcZnRuYmpc dUPkPXQzKuAar8ual008lHZ fs7yuDRNiPgI3rRNyIPVfcN FiG732ZYZqIHjsx2pae4JsZ RXfuIBrj2X3SRUCfhuzwTp6 eZkfA51by5T8YprbQ1coDNC qSLKfL2KzKJ7jUDJqAer2CX D1HOW8PZIaVYBdI3QvAP7qM AOnxGLtGMv0m0gmfQrqHYVq OKJ7i1neBSccymFfNE5ffq7 neXq2m9eembWuFVGnEJZlyB ALMHQnN0MskUttMe5biNs3y JszJexwLLO0Ufi7QK7uqk69 ztm6nQzcEJBqylzuUkR1HQu aOCGniffoCEc1NJlyLXAlzI J5FADlfQKzD3ShRFLaPE0no gu7AZW0FKtiWCPzTuV6ULRe rBHbUXGhoEubIYwle116YRK 0SsMqGK1iO9Xhe0J3vK8xoY DdYTAbrFAqBhTkOVBfqh1ip DDdDZxdr5SeIMF0vjC7kVNd dMLvTJJeNqH4JVtpGK6nzs8 3DLSaJWW5dy5wqHQpuAolmw SxkLPxWQzmL9MzYFFze604Z POiK2NtELYzo0O4oqMpKnEc WHStiUU4aoV6CJYmLJ3byrg tt3zdGTweTHjoXELdumT1pb K2AEEkhIIkA1YelD4sKDFvJ G1sofyhq1qkPDQ8GHwtQACa VXV5PcXoRKWrk8Oqikx0JpF mh1QtgQQcNHprI62fl047KJ MulxYfW3nmiZObehzrvEIiv cgxGMxccxV3TKTmDKcgvmfv UJJkIKntJ2wiVmLkRLZhhTp mTGfek3BeLWNbNGCvWlGybN GsAFYmYtv4RZTmzDPjALEcL bHtD0dhbgohBeCSMRUdh3at N2rhwGWGbFEbL7LjYQydnpO jMMmdCLefIpJkOJs1KS26Yt CzQFNphy84 CPT Code(s) (test code r4izjLPpOIHbmET0CjUaQTG = 3357) ot5vdj6JnzGBaaTOlPIfagI YvkoUlfl70zEE7bQ20XF2zB VAaHuA2UIDgjeL9Qlq1VGKo SEGccFZbG089u3css6tpitS fkVM3wKvzXOQfkmgrRpA6BE dlZRJmkhnxYXl0EKkkVJJtd QX6GNBoaQBtG4KdVHTjCQ2h dui0YQL6XWllTDIfKoT2HMM atCPkADOghLsmLMrjg890PW S3HwHvUTTsdqOztWzhsG1oA yOlVLA4WGMsFJD5EWZrKGGr cGFyfQ== GROSS DESCRIPTION z9rbvFCpKMJveAFFSESqNzt (test code = tmpJrZGSzqFFmW6JztlbmLB [id number]) ouFT0wEW3wtWhpeZQdzSUxO H2KNVXmKrCmZJYxbRYykiRv FdOtMVEmyCIpjVH0YJDySO3 qkmlnTRuuLEltNLSxulN9LV BtpSMjS5KqGPQyDE6qrpsfU OX1JHhhvI4hccTUWtajHa5m dHRibHtcZjFcZmNoYXJzZXQ aSHGveWbqHFZaPDl0vV9IQj iiCLA4KWPUIerhOYVuEF4Iz 7hfIKCsdZOfNPW0WMvczESu WRShXWYpFOc3MYJkFXjktWD kTP7slAziNvuvrMagm5NhcW BcXGlkIDUxMDAyIFxcZGIgI D6ANsBeLFnYIoV2QFP1KzI1 PKi1ANQNBdNwNoMmOejtLpt zWxfcCIv6YCd3ZMpBXvE3JX pvVcH7CGAgLQHtVMzuNWp6Y DIgXFxmIEFyaWFsIFxcZmwg ZWouJ94dwKediK4dET3zKSa 0cmFsIFZhbHZlLlxwYXIgDQ ikZWAwT35sf7LRa1KhSF4BG Ar1ynEpusbekB3hGPXyfoJy SAumfJAgF3qmXtViCQLCJtM aUmKpYRu8XETajR2kXk9qgR DzpH0hcGDpPCsgACY3fRNfA LUmeZygnpVdeqEoYL5vGZCt X6Gff0Azl97gxhNaCaXpXSS oMFCgsZr8mmHlSTCpdCNoAg EqdsVwIDqwVMC0TNXsmLYwV nUbX26toUJoVLrefQUtIGPi UkUwzTXiy0JwjMTdOBUhEXZ lCE2mGQCmo6L7SUU9kVLoFL 13mTUjdTavMTEafo17iGx2E FOzcO6kRFFmsONjfbZxuBiv bwOoQN8hPGRklMJhQERsxAP wQRaiwNTsXUKrlu4iei1hzL lsvq5nLHCmrOKlg6TnkSO3q CGeTBXnV4Ief53gFOKuSUEa fRKlkTN9DPHhwP8vY5Dsu1Q 5pICfXLBdMUGnUIJPSj2hOL jcmYsszZ0dNSUoS38ts9FWo 3GxYHFvFBhok4rqsAiwm6Wi dGVuZFxwYXJccGFyZFxzbC0 nVmEax9qbeUs1SNjstqM8EQ Kqip5YEzsozP1jOdVkd3fis Qy2GLWSUhtodqV9a8mmjIfq p2KmyZNiQP6EQh6= MICROSCOPIC m1ercTZiEQGbkYK1McWiDYW DESCRIPTION (test code uc7fou1RduAGmrQNiRGienH = 3371) GpkuHebn45xVC0yT18CN3fK ZCxEfA4FXQtniR7Rol8JCPc CNKudGUkF912p5ezt1knjpC fuEM9vSdgEADupigkPbU9SE gqKFArniudWSl5CCerRYTkc WE3BZWzvYIjH7DuKQUpEH0k hsq2JLG9VXtrGHXdNgC8HYF nnYMtQCXgtEvqFKoye227QH H9BeXyYZJzgyUfwEmjnG6vF gObDAMCCWDcs2BkYYUbCFat YXJ9 Gross assessment was [facility] performed at ([facility], code = 2777) Department of Pathology, [address] [place], [place] [id number], Technical component [facility] [place] was performed at ([facility], code = 2778) Department of Pathology, [address] [address], Professional component [facility] was performed at ([facility], code = 2779) Department of Pathology, [address] [address], [facility] [id number] 18:56:57 Test Item Value Reference Range Interpretation Comments Case Report (test code Surgical Pathology = 104) Report Case: [id number] Authorizing Provider: Dae Walsh, Collected: 03/02/2022 06:37 PM Ordering Location: [facility] Received: 03/03/2022 02:09 PM PERIOPERATIVE SERVICES Pathologist: Suzanne Camargo MD Specimen: Mitral Valve, Mitral Valve Leaflet DIAGNOSIS (test code = a9jpfDVuUTGdk3rkWRWrzUL 3220) uZzEwMzNcZnRuYmpcdWMxIH tccnRmMVxlcGljOTYwMVxhb zAhKNBfdVGiN2RfxxqjNJkl GL6kMW1rsEeruZAurCWhYMN cQyNqx7mce899rAIdf5kiPY XCkdvzhAm0yFffU09ii5J9J jzuT13adXWxKAT5FMWaFRZp jYUyNMTiIIU5ELDenJIwC6u eGYIcPP0pmsxsFAvuJXuyLP OugEE6NQWfrOVsH8ZeCHZqC XioCYJsktq8UkGkNp8btMCg eTcyMFxwYXJkXHBsYWluXGZ zMjAgTUlUUkFMIFZBTFZFIE hODBFBNWKSLLZTKPKHK1dPS fjkDOEytADcLR8fFgBBZfVW QVEvEPqLY4IIJQjEPVqkMXV DRZVkZH6YWKSBYXWPTI4RFT HKBMTEWE2VPOMUNYwGWgNbH WjDEQUTVRuaCRSkIym4XyAf PHAOTePqE3GHYyGEKLDUS25 jEWaDS8AITMWofj79ONX8Mb Vbs2L8XQU4NHCqMVBmb4wmX GVmbGFuZzEwMzNcZnRuYmpc zDBrWHMvEgZtt8byi406eOA wp1kgOKQwRoP5wIOgAUPnuG ZxN824WHUjNHxou8imi9ErU VNsgKVnz5P2OXDOforkuZw8 yXjrK12hm5B1EuunS3ciNQA aEBKvN2HnWG7eHUUtHov1TM B8QJV6REJtOTUpO1GwLY4wZ IShuYTrGNo2i8bxyAbaHDVi SKI7u8qnAPbxcvDbMB6pwn4 wrYe9q4ngedYgJIPpPZEygS UVXKTgO8XdoNfdVu0zwTr1p RamMizrSLF6Gaf7AE1xfy19 bhk7vQjkFQGwaedbZyK3WWl eTOSlzknjBBy9EUpxWDLcyV M6EVJdvAJiA0RrXLYnGA1ii as3KHI3EHvqCHCjRoB9GTBh gQVlYLBikOrnTPoen550ECY 5FuHbEH4wQ0Iss9C0wK4ngT YnSZSnbUYuXaIoJWTamu6io FMrYTceo7BvGDT0qnA8hZNy lQLpDWNsWfT3EAiuHU3reh9 2NTVkOVH3sl7ohCKhzJryyf MdmIEpIEtpB7IvTULqn057K ODrQ2HgBLZbz4F0lhGiIrDw BZLkwII8mwZ2YHCaXH6uxpx hd0nnWCrgSPimXFPqiwV9ne G0YGEjqJKeF2FvxC5cEMPoD B1kqtzxi8rxCPT4ZIhePKKb OQB0XqAeEIUil9Fjhwx1YhE xj9VppGMoHTcjQ40es462AE MhcaXrZ8gknJOeekocsRWkq mmnFWyyagW5QBNwFWpkpqgl QXQtYYpaT5rdCfOdFBJtlPg lARdsd6NqOAPcHNNwFqGyrL BtWGJdZhw3RKIrrFSgFDFhN fKwQ7vazbjdYtCDDMNxm4gp S8zwcAYAySWlG2JjHHoqmuT hBWpnDCbuKkUmTLh8GZ95Ak XeJVHvkg79 CPT Code(s) (test code d4hxsLVqNUZbjKM0DkBxZLG = 3357) cg0efu5SztGDkfYWhUQtjwN VvypTwsz49nVS6uB65IU4gO MRmBkL9SIFqubX9Jzh6NWFa PSEdwNGeE531j9gze4tidsK aaZH1oAfaUMVanrdpPgK0WK osRUPljxuiHHk3WTfvTVVeb IW2BWHxxHFpD9XjVIPxRW7n uod0XBI4IYbkTUVoMlQ6XUV wqXHvSCMdqFtyOQlak532IN X5ShAjWPLrxoHhtYohwQ9xM fGrGHG3LXWzXWK0YXYqONDc cGFyfQ== GROSS DESCRIPTION u1dtuLWsBYDnbWMJXHNrEhu (test code = cmwPyIUGkcNDlL9HuretwYX [id number]) duQR8cPU3lcKuqvCQteMAmB G0BXHSuOhEjDHTwoCSbpbCb QiHbBDSybQGnuXM9WCDzGJ2 nntgcJNtxSDenHXOhkjN6LY McwUGqA4JhCPXjGH8acyuwW EU4ZCodyN5mwdUSRwmoTt7f dHRibHtcZjFcZmNoYXJzZXQ aTBPikVykHAUtAGe9tH7VZc klSHU4BHCNDgmpUIVtHZ1Gs 2vsUALlzNPeMLF8TRhfuUKb VJCuIIJqQEw7SJMpFGpnwPA nCW2tcZccDfkyzTmev6BmgO BcXGlkIDUxMDAyIFxcZGIgI U8UTnHaTTkAXvC4KEN0UaK9 PYh6NGIURwYyZeFvFrtdJti hMpuzZOy6KBn6SMdPTaK7KZ vfUiV8CMKpPTTbCObqSPt9R DIgXFxmIEFyaWFsIFxcZmwg MXnsZ43imMtinA4vMO2oHQj 0cmFsIFZhbHZlLlxwYXIgDQ jzSJRxS54nw6IKw6JfRH3ZN Wd3jvNbjmvoiG1fFHZbogQm SFqkjSIaC5ebXwUzGPXMGoB uLpIgFQg3ZUNldT1pAk1dkR BgpZ3jbAFmHRkmSCA5rBMnG YZcxOkkwfEsutVdSV5bSKBz G0Gse2Chs12wzlPpKhRlLEB iRQQjjHp6hiLuDSTiwNAoAk UhmdFeQKxpIQB5WRBqfUVuO tUiL06kpXJgKJaqaUFbPGSv OcBnkHAty8BxyPCrJRJgOLF mJQ5aQUKtx5D0NID3pRGoZI 30gIVlaKtoYLCjmo76oEj2J MVcoO6wVCEerLBqgsDcdKxs tlYdNS0jAVAiyZEmRELtzYF oJWfkkREsNXTqkz2fpc4bxB raxi5aNNCszRJqg3LlzPE6v ZGuTHUnT3Apx04gZZHjNBAj pSDcdTS6EOHqyY5kX5Jnc6G 2zYXcUAAiPEAqQMAEBs2qHF rvlJwkiE6gDFUuO30ra8QNc 7OsTYOsXYkeh8ldvSfik7Yj dGVuZFxwYXJccGFyZFxzbC0 wRxXmi1rfiUr7YZwcrzV8DW Dhau7CNvndkW6gXiKpg6mjy Ao2RNRPLkhpdcY0w3shwVlm b8MjgJDuVL4EVt5= MICROSCOPIC x5sinDMiXTGdeWP4ShQrHRS DESCRIPTION (test code az5brj2OvyWVcoLFsTLqdbI = 3371) LfazJzjd22uPD7mO87WV4jJ IAfRmD9UAWdzfL5Lhe5YAMt JBIeaXBaK318s0xqn9apgkM dnVO3xFbpKCGrpjfkZoB5LG phRRUukbemRTw3YRndJZCrz HQ3DSTamULtU6ZkUZTzOX7s unc0TYL1AOfuMYGaCmU0FSX eaTSsOZWhfFscKOrmg090YX G5BlBjZMVpjlHvfGxepV1hK xToSYVJVGEpz4PdOFTkTSjt YXJ9 Gross assessment was [facility] performed at ([facility], code = 2777) Department of Pathology, [address] [place] [address], [place] [address], Technical component [facility] was performed at ([facility], code = 2778) Department of Pathology, [address] [place] [address], Professional component [facility] was performed at ([facility], code = 2779) Department of Pathology, [address] [address], [facility] [id number] 18:56:57 Test Item Value Reference Range Interpretation Comments Case Report (test code Surgical Pathology = 104) Report Case: [id number] Authorizing Provider: Dae Walsh, Collected: 03/02/2022 06:37 PM Ordering Location: [facility] Received: 03/03/2022 02:09 PM PERIOPERATIVE SERVICES Pathologist: Suzanne Camargo MD Specimen: Mitral Valve, Mitral Valve Leaflet DIAGNOSIS (test code = r6bqtGHkEOUdh5trTXQpfNN 3220) uZzEwMzNcZnRuYmpcdWMxIH tccnRmMVxlcGljOTYwMVxhb wTiMXOmeVAwU9PrtyleRYtf NA2kDO3jfYgoxYTehGDfGFT cXjRzj5fzv263qKZco5dmRI AEqoxfoDz6mPsbO76ru5D4L yaoM73jcGGnCCJ2LROwBFDx yMXwCJQcDUF7VSQhhSXhY9s fOYLwOV4mqbfcGPlkEDszXG DnsYB3LLRjySBvV0GlOPWtF SqcKIAjbfv7YtFmKm7atPZj eTcyMFxwYXJkXHBsYWluXGZ zMjAgTUlUUkFMIFZBTFZFIE nGBXPRDNAQSCXMNZVSZ3rEV hdvNSSfeBVeRE1sQmCZRsSF HYBzFAqUY3FBBWyWGZouMHX NFSPkWX1KVSEWNJFUQN0YQX EENJDNUF6NPHNCBNyIAwTmH BtHKCCTFYrmHAHsEqn6VgSx NFJAVnMjK1VRBlRERGNYF93 pBUyMN6FRUFJtbd07IHC0Qr Zzs6E3TBP7OJBrQAEat9upF GVmbGFuZzEwMzNcZnRuYmpc xUDxZMLjJdGuz2qut831tYK do3fwJHGkJyC9sDRdTSMbqB MpX878DZPkOMpsn9evq9FvS KGltNNis6K1PKNFifdwdTb8 jYqkO84ot7U7ZtpjB6qwCOX aASCyJ0TcNO6dKUPwJpy0OE Y8PDV3VDRgTQQjN2PnNX3iX HCnuXEnPQn9b4jeoKsfJUJb SHU6g7bxQJmaynWaWI4wod2 dtSk1b8rcapBfEQXvKFJubO NAGCBkL1PrmEwjPk3rxVr5t UqsXgxqDTD3Dhf1WR6tws90 xvu1zVsoVDPebcdbXsD9QLl uLYLcyfxkNVl3RPpoSMXrfD I4IGYwxMQgX5VzXVVaVN9dk lo5BMH3THkbTYSjJkN2DAJo qYCpSUQbtPmpZEugh761TPN 9MwXkCA2sL2Usv9M2gQ2qcI DiECUggLIpAeVrDRZvzr7xo EIpHUveh0AnWSN0puJ4sMZl lSYiKFQnYrO7JHjtWU3ehd6 7DCZxAHZ7jh5cxLLbmXeixs WsnMDoPOoaT3PaDXZyz617D DPvR7DtEMXzi7B6idJzBzEw VNKkjBF1jiK1ZUJpAD5namw tx2tvDRfiJKswVBBhgkU2jk W5CVXxgMXoF1GbiO1lFOIrN S1yfdeuf3vmXPF3KEzjULEs GTO5RjSeORWpq3Jsjiw3XsH dc5JgeQQmXFyxX77nr761ON YrefOpE4khhMGtyeuajDMpf ikvLPwzdeJ9WTYmHYmtqxqy MKJwOBjfW4hnXnMdTAYkhSs fVBjuw8UtVTUgGLJiZtSgbL MtMULiSqq8PNKwyGNuSHSaV lQvH2eqeclcKfPAYXAsu6ru B9vvxAIVkYBaJ8PlIDdhvkN sLUwsZIbsKkMhTNj3CW26Xy FpLSIqmg33 CPT Code(s) (test code a2gpwBEpBGWsdAO2FhLwWYP = 3357) yn2ezr9PdaIUyxFGbSMbztA YzsdTdxz58bBF1zW04QO4jS TWjJrH4EHNytnB3Vkb7IAAy PENwpYWsR195f4znu3jcpnU irNA8pDrnENXjcozdRwJ5RU qfKDXisghmUUq1KDobSQJvv CM9HJZmeMAjD2RiDPWpEE5n fqh8HIW2YZxfGOWgRtE6FME mgZBkFBXamHcrKWjvv906YZ X1BuTfRDKptpBgeNonmD9tH wMwHRU3YLKuJLX8SNYrLBVm cGFyfQ== GROSS DESCRIPTION d7wayHGmOFMctTAXFAFvSab (test code = qsgMgDMNiwGTdJ6WborwaQS [id number]) jcOT9wMO2lfRhnmEMziVTaC E6OODJmIvHbFDQlxBVedkVe IlVhZWLntRNkiSV2ERHdHA8 cftcpLGkbZYgmLUReqkA8WD VntVKiX5MwJMObSK8bvmguP JW6KMuxnC5ldkAEUwxfEo6t dHRibHtcZjFcZmNoYXJzZXQ wKQRgzTldQKJvCGk2fM3EZe tfEXV0FRHKBeddATUuBQ8Gj 3iwNQTzaYQgXZT3XLhlvPDw GTNnHNYsOUm8VDXhQPayuUD uUU4dmYvgSygaiIybq7PosI BcXGlkIDUxMDAyIFxcZGIgI Q1SFxCkGVtWQhC6YWY7GnA3 WWb4LGSVQtEcQrZlFyumUzn wRagxSWf5XJm6OJsJIjR4TV hrDgL8LZRdZXAtCQnqMVp7Z DIgXFxmIEFyaWFsIFxcZmwg ZBzvP98leAtotC8iBR2pEGc 0cmFsIFZhbHZlLlxwYXIgDQ qxMRQxZ60zc3XDh7HfKJ5ZL Xg9ufXwlozwaP2dUYYxjuGq GYebnUPgB2vlPfYpBRIGGzL cWcBjAUi6VEBjbM3ePi2uwD YtbR7ngMOcMOtaUEI5tHDpB UOrnNmpxtKohlFkBY2hPZMq L8Vvq5Tnc66mhrRqGrWzMDZ mLBMixDq4yuLjXCYqpRFvGm IbkvRhFVvdSVG1LBEbsAUoH rTkG93dwOLlVXuhnPCyMYVs WvEwaGJqf6WbgGTnGPPjNSQ pMW7fJVEur2H3UAU3lHEdOP 08gDEeeFmhVYGuwk81rUd4Q FIvpR3yMEOtuXCdrdNlwJvu crRrMC6qVFZatATrETEmqHZ oDVmmgPPxSQQovg1eqo8wdK ymmb7eJLHlsBTbn0MeaIR2y XMcYJKxJ1Cpt40bKPHaDLGk tKYhsZX2AUVbzB0bZ2Pfm2U 1nLWbUWEhKANrOPUQHq1eIH yqiXdotN2aKQXpV62mv9OSf 9WpPVLbSJwdn8blaYzns3Xg dGVuZFxwYXJccGFyZFxzbC0 hNwWxb7vflWv3HFusrlL0NN Lrcw5JKynfeK8iQiUmt6fid Ju4FIVBQgtcjgP7g7aomPnr w4JriOMxUF1MAl7= MICROSCOPIC h6ospBUyLGGrrZN9DcMfPSX DESCRIPTION (test code pk5pab8JfsUEfkXFxKKpbrZ = 3371) DcweBmtk39wWA0eN42TX8tV NZdOjT8KFHpyjJ7Hyi6EYTy JRSdsLQwX198b2rsv7dukwY iwHR7xHqpWOIimsozSjV2OF ntWXHsokhkRZg4OXelVKMhz WW4AUXllOQgU0AkSPSpTM9e vky6CYT4WJjcYVXgEkJ8KZB ptAHaDPMqhDgeXCdpc454XY H8IiZqQMBbitYlpLyysU9mN rDrJDWSWQOnj5BdRBBkZGpz YXJ9 Gross assessment was [facility] performed at ([facility], code = 2777) Department of Pathology, [address] [place] [address], Technical component [facility] was performed at ([facility], code = 2778) Department of Pathology, [address] [place], [place] [id number], Professional component [facility] was performed at ([facility], code = 2779) Department of Pathology, [address] [place] [address], [facility] Hospital[facility] [id number] 18:56:57 Test Item Value Reference Range Interpretation Comments Case Report (test code Surgical Pathology = 104) Report Case: [id number] Authorizing Provider: Dae Walsh, Collected: 03/02/2022 06:37 PM Ordering Location: [facility] Received: 03/03/2022 02:09 PM PERIOPERATIVE SERVICES Pathologist: Suzanne Camargo MD Specimen: Mitral Valve, Mitral Valve Leaflet DIAGNOSIS (test code = h8mamWLrXXLul2liLRSexEA 3220) uZzEwMzNcZnRuYmpcdWMxIH tccnRmMVxlcGljOTYwMVxhb oGrIKQkvKSvH6AdijvtKBjy WR4xCR4vnBjssQQotEBiLNW iDgWwo1xjp702rNIwp1siEM XHdstkuTy6mEbbU67xd8E9J mqhZ90njGIpPBK1DAUmEFCj sVOwSAKoVSQ0UPFzoKXoQ4v qYPMbFF8tiiypVJnsMThvDJ FsuCV4LBOhmHBoG1YcJLWhC EkjLWExlcb2IvTvVa9oaQYd eTcyMFxwYXJkXHBsYWluXGZ zMjAgTUlUUkFMIFZBTFZFIE dCAYMZJUQROATUUCYWW8fRL actZYSvgJFcUA2kEtKJIgRI QCLyDUlDS0IRTOxXMTdxZGK URYGeXY2TVZNKKIZAFP1BXI SRENWJYZ3ZWDXHDYeVMmQdK BnCPBOOBMxiMSXzCfz4LaJd ZEFOOjKdN1ECFmCIWVZEH17 xXLjJM1VXWOQuoz03WGL3Ai Lhz5Q6RFS8WASfZOYuq3ukE GVmbGFuZzEwMzNcZnRuYmpc bGZzYAShOrFbm7sel495sLI nl0foCBSnEnQ8nAHpOPXziU FqL862GUGxXFwcd8bxk0KiK FVvhZFvr1K3MOUHfcpzsGg6 mBobI28nh6H6RwkcZ2qsDXS dNUYiG2ZyJI7zSDPiEan6WM C2YWU1OLIeWWFlE8HmPZ0fX TJwtTSuWNe2u2ehqUspZTSe SKA2z5koBMcjelQvOQ5gjy4 iqAa6i7qagiHxRDVmQUFahT ENCKUnP9FglEnjXm8dtBi6o OpmCewoQUM2Arz6PX2dtq38 qug1iJzqMNZoswwtSpG2AJl nZFLnmifoPFy0NNnwSJIjcP R6XCFuwEMuK2TsCTTwUJ5bi gg8MMM6BFyyRKAxUhT7ZOOo kYBsVAXfwFxvWDfkg784YZE 3TwLbCT1kU8Zww5A9lJ6zbW UsMKVltBEhErQlYBLudp0lq HGtEKjut2ImXGH5vfJ5gSVl xNAvEXLgSnM3HFubGB6fnq1 7SLFjZUU6ti3yrETbuQtabb RvwRRpWPnkW0QxFOJpe090X LVuO0VaWYUfr1N1kaFsAaKs PIYrkRT5ixE8VXVhGK3gkor rn2tbRRidWYmdWRSpygG2hc Z1TNYkiTVzR6MurT9tVPMxN Q1cbchpv8scVQW5FAnkJEQu LRS2RxLyYIRdb4Xqfls5OeQ rv4KdwGIxSNxaX00ch306QD QtmgAlH6srwZIsqbcweFCpk qkbSMviduE7KGSxHIsmqkfp JKVtGIwoS8zuLhXoSHIqoRq mKBhzi2WrCXOkURAmHgAbmW XxMVKuSku1CETdiVOcDADaA bYcD4xbpspiQlGPLCAlb2pj X6wwuNVFdYVhK5EiRSalalF wGUojXRirApLbHFf5JE12Rw OpCQWcnp49 CPT Code(s) (test code w0gehXNhHTEmvQZ6NtLhWGT = 3357) fl8syl8KjhMCleGCzUGhnqS IvrwVjpj30aQL1cF33GD3tN WTcMeJ7JOOmpuN4Tbg7AUQt SJBfdXDeW348v2ztv6rlmiW idBJ9tMugZZDflnbbJgU7LB vyHQXgyjdgPHa9LRwuOHMub RA3EWNhvZKrI7JyAUXzCC5e amd6TKI2VMohZDRsClQ3LWB bhSUjSRUqgTzoWZkfg113AU H6TkTcMLExnvDyhXriyO0vP jDvDOK1OWRiMEM2PYAvGFBg cGFyfQ== GROSS DESCRIPTION a0jmgWIiGZBwuKDLZVHzCwr (test code = pbtYgUDMczJGlE2RmpzewSH [id number]) wlYF2bCE8fyXjipNGtgWBzA M8BNZQhOpSuYWGxxVDgsfUy TgBxGHAmdHKsjQH8NHNdBY5 hrqfgJGqdPKnvLZZjwsC7IR YfjNMjE7ZcWIBeBJ5ssuosJ WL9QPeitH6hdtKEUsxnYn9h dHRibHtcZjFcZmNoYXJzZXQ yYBSpnBqaCWCyQNa5nK2OJu veMIE4QCGTOuhqICMbIZ2Dq 8tiHMMlrCGnNZK0CNyttIEw XQQcGINeGOy8TDQfGEstfYE vIA7atUapPktrdKhrc4IonL BcXGlkIDUxMDAyIFxcZGIgI N8TBlVgCOdEPqB4BFD4WoO1 IUd4WGJEIrMoRmUyRwslLjt uEcioCIk2WQe2GJyKWuM2DV ofHiU3JEUlAWXpVNksYSy5A DIgXFxmIEFyaWFsIFxcZmwg CFkvM97mhBamkN4aCU9tEPl 0cmFsIFZhbHZlLlxwYXIgDQ xhZTMjA81mh4TGy4UwRS9YO Pr6dfMzudewvD3jDFTvwaXo MRjcpLUjC8wxOyBdCZAJJmC gKqEbIGd5RPImvC6lZn6qsV NjlT9teKSuEAceNXJ5xAYmC QBhoHclehWgzuQiNW1gQZWs T6Agz1Dmb25jbjIeWlAsPZV tZJBuvXe9frUoGEIaxHKsNi LgjpHlZGhcIHU4LTHccZYvK pRkF70vfFXxZCmplNVrFDFe OuBwlLWyn1KzxCQzRKSzWZS xLH4pJMPcw0M3QLX1uLBvWK 45aIOysEjzOKNbrw25wQv9D KUwnK2pGWMvnZAqrfXlsCzs qdHrWC1xYCLptCViJYDmiTK uVPlnoJMeJQVtti9ygj1gyJ zlsr0dMZVzuZWvr3NhiHC8y MViLEXiQ9Efg13oQIPmFKRx uUEaaTT9HGXkuE0kB5Zpe4F 1yTEmYFHwGGBpEZJNCl3uYS oexUkxnD8tWQAkL78fn9UXk 2IuOZSuSBocx0jstZjxb1Dp dGVuZFxwYXJccGFyZFxzbC0 qHuPeg9ryaIj3QHckkoL0CK Ktxe8CQyyeaG5nKpYee0xww Zl3NJVCLyjxngL8n6xftPul c9JwcQClCB5WMe0= MICROSCOPIC v8erdTChBEMfwVO9FgAaLDJ DESCRIPTION (test code es1ppw0YjhOYhxVWfVKnvcE = 3371) QabkXbxk14cIV5eP15AW2kW CKaIqL1SNEbruV0Dqq3AJSu MOLvcKTuT535i4yux9yshdK yaNM7jKqjJYTvsuqmClT7JT sqITPbgfdzNOr8NKsjMURtb WO9UYRahLXxL6RbBVFyDS6o znb4IYK7LMuyZCVtRlV4TZK ncEYrAIByjPguNGuim998AC I5HsKcPXMtpkSzdSgtyU7rA hMeURPESLSib4RgSTGdNUas YXJ9 Gross assessment was [facility] performed at ([facility], code = 2777) Department of Pathology, [address] [place] [address], Technical component [facility] was performed at ([facility], code = 2778) Department of Pathology, [address] [place] [address], Professional component [facility] was performed at ([facility], code = 2779) Department of Pathology, [address] [place] [address], [facility] HospitalTISSUE [id number] 18:56:57Surgical Pathology Report Case: [id number] Authorizing Provider: Dae Walsh, Collected: 03/02/2022 06:37 PM Ordering Location: [facility] Received: 03/03/2022 02:09 PM PERIOPERATIVESERVICES Pathologist: Suzanne Camargo MD Specimen: Mitral Valve, Mitral Valve Leaflet MITRAL VALVE LEAFLETS, EXCISION - VALVULAR TISSUE WITH ACUTE INFLAMMATION, FIBRINOPURULENT EXUDATE AND GRANULATIONTISSUE Signing Pathologist Direct Phone Line: [phone] signed by Suzanne Camargo MD on 03/10/2022 at 6:56 [id number] A. Mitral Valve.A. Received in formalin labeled with patient's name, accession number and "mitral valve" is a 8.5 x 2 x 1.5 cm north-white fibrous opaque piece of tissue with multiple north- white linear projections and adhered north-white firm nodules. Honing Job Setter sections are submitted in cassettes A1 and A2. Performed. [facility], Department ofPathology, [address] [place] [id number], [facility],Department of Pathology, [address] [place] [address], [facility], [facility] of [facility], [address] [place] [address], PVY, CHEST, 1 VIEW, NON [id number] 09:08:00Reason for exam:- >s/p [facility] : 2000 Sex: MFINAL REPORT [...] Estrada Verified Date/Time: 03/10/2022 09:08:22 Reading Location: [facility] Radiology Reading Room BASIC METABOLIC [id number] 06:24:41 Test Item Value Reference Range Interpretation [...] S NOT APPLICABLE FOR DIALYSIS PATIEN TS. Cooler Room Worker ID - CHRIS [id number] 06:24:41 Test Item Value Reference Range Interpretation Comments MAGNESIUM (BEAKER) (test code = 1.8 mg/dL 1.6-2.6 627) Cooler Room Worker ID - CHRIS MHEPATIC FUNCTION [id number] 06:22:42 Test Item Value Reference Range Interpretation [...] code = 69 U/L 6-55 H 347) Cooler Room Worker ID - CHRIS MCBC W/PLT COUNT & AUTO [id number] 05:58:34 Test Item Value Reference Range Interpretation [...] = 2801) RAD, CHEST, 1 VIEW, NON [id number] 08:39:00Reason for exam:->s/p MVR [facility] : 2000 Sex: MFINAL REPORT [...] Estrada Verified Date/Time: 03/09/2022 08:39:01 Reading Location: [facility] Radiology Reading Room MAGNESIUM 2022-03-09 06:46:57 Test Item Value Reference Range Interpretation Comments MAGNESIUM (BEAKER) (test code = 1.8 mg/dL 1.6-2.6 627) Cooler Room Worker ID - PIAYA LBASIC METABOLIC [id number] 06:46:56 Test Item Value Reference Range Interpretation Comments SODIUM (BEAKER) 132 meq/L 136-145 L (test code = 381) POTASSIUM (BEAKER) 4.0 meq/L 3.5-5.1 (test code = 379) CHLORIDE (BEAKER) 97 meq/L 98-107 L (test code = 382) CO2 (BEAKER) (test 27 meq/L 22- code = 355) BLOOD UREA NITROGEN 8 [...] S NOT APPLICABLE FOR DIALYSIS PATIEN TS. Cooler Room Worker ID - PIAYA LCBC W/PLT COUNT & AUTO [id number] 05:36:42 Test Item Value Reference Range Interpretation [...] PERCENT (BEAKER) (test code = 2801) SARS-COV2/RT-PCR ([facility])2022-03-09 01:55:48 Test Item Value Reference Range Interpretation Comments SARS-COV2/RT-PCR (test Negative Not Detected, Negative, code = 7669994) See external report for linked test SARS-COV-2 PERFORMING LAB [facility] (test code = 9691599) Negative result for this test determines that [...] of the Act.Fact Sheet for Healthcare Prov iders:https://www.Simplificare/sites/default/files/product/documents/Fact_Sheet_HC _Zbptoxejj_Ycuv_ECRT-IaA-5.pdfFact Sheet for Healthcare Patients:https://www.[employer]plific[employer]/sites/default/files/product/docume nts/Adgj_Yfrlp_Xdnqjhpd_Fcdt_VWZP-PaM-3.pdfPerforming Laboratory:[facility].[place], [place] [address]Jjbwhpiuq culture 2022-03-08 11:47:33 Test Item Value Reference Range Interpretation Comments Result (test code = No anaerobes isolated 6463-4) [facility] [id number] 11:47:33 Test Item Value Reference Range Interpretation Comments Result (test code = No anaerobes isolated 6463-4) [facility] [id number] 11:47:33 Test Item Value Reference Range Interpretation Comments Result (test code = No anaerobes isolated 6463-4) [facility] [id number] 11:47:33 Test Item Value Reference Range Interpretation Comments Result (test code = No anaerobes isolated 6463-4) [facility] [id number] 11:47:33 Test Item Value Reference Range Interpretation Comments CULTURE (BEAKER) (test No anaerobes isolated code = 1095) ANAEROBIC [id number] 11:47:26 Test Item Value Reference Range Interpretation Comments CULTURE (BEAKER) (test No anaerobes isolated code = 1095) RAD, CHEST, 1 VIEW, NON [id number] 07:45:00Reason for exam:->s/p [facility] : 2000 Sex: [...] Otherwise, stable chest. No pneumothorax. Signed: Jaye Edwardseport Verified Date/Time: 03/08/2022 07:45:21 Reading Location: [facility] Radiology Reading Room [id number] 06:32:10 Test Item Value Reference Range Interpretation Comments MAGNESIUM (BEAKER) (test code = 1.8 mg/dL 1.6-2.6 627) Cooler Room Worker ID - BSBASIC METABOLIC [id number] 06:32:09 Test Item Value Reference Range Interpretation [...] S NOT APPLICABLE FOR DIALYSIS PATIEN TS. Cooler Room Worker ID - BSCBC W/PLT COUNT & AUTO [id number] 05:38:01 Test Item Value Reference Range Interpretation [...] (BEAKER) (test code = 2801) HEPATIC FUNCTION [id number] 08:48:11 Test Item Value Reference Range Interpretation [...] code = 74 U/L 6-55 H 347) Cooler Room Worker ID - [id number] 06:26:39 Test Item Value Reference Range Interpretation Comments MAGNESIUM (BEAKER) (test code = 1.8 mg/dL 1.6-2.6 627) Cooler Room Worker ID - BSBASIC METABOLIC [id number] 06:26:38 Test Item Value Reference Range Interpretation [...] S NOT APPLICABLE FOR DIALYSIS PATIEN TS. Cooler Room Worker ID - BSCBC W/PLT COUNT & AUTO [id number] 06:08:09 Test Item Value Reference Range Interpretation [...] = 2801) RAD, CHEST, 1 VIEW, NON [id number] 04:39:00Reason for exam:->s[facility]p [facility] : 2000 Sex: MFINAL REPORT CLINICAL INDICATION: s/p MVR Comparison: 03/06/2022 at 1103 hours The cardiomediastinal contours are stable. The lung volumes remain low. Right greater than left parenchymal and pleural opacities are unchanged. A trace right apical pneumothorax may be present. Attentionon follow-up. Support lines, including bilateral chest tubes, are stable. Signed: Sudeep Mitchell [facility] Verified Date/Time: 03/07/2022 04:39:50 SURGICALLY OBTAINED CULTURE + GRAM STAIN 2022-03-06 14:43:32 Test Item Value Reference Range Interpretation Comments CULTURE (BEAKER) (test No growth code = 1095) GRAM STAIN RESULT 2+ WBCs (BEAKER) (test code = 1123) GRAM STAIN RESULT 3+ gram positive cocci (BEAKER) (test code = in chains, pairs and 82287) [facility] Surgically obtained culture + gram [id number] 14:42:55 Test Item Value Reference Range Interpretation Comments Result (test code = 6463-4) No growth Gram Stain Result (test No organisms seen code = 1123) [facility] [id number] 14:42:55 Test Item Value Reference Range Interpretation Comments Result (test code = 6463-4) No growth Gram Stain Result (test No organisms seen code = 1123) [facility] + gram [id number] 14:42:55 Test Item Value Reference Range Interpretation Comments Result (test code = 6463-4) No growth Gram Stain Result (test No organisms seen code = 1123) [facility] + gram [id number] 14:42:55 Test Item Value Reference Range Interpretation Comments Result (test code = 6463-4) No growth Gram Stain Result (test No organisms seen code = 1123) [facility] + GRAM [id number] 14:42:55 Test Item Value Reference Range Interpretation Comments CULTURE (BEAKER) (test code No growth = 1095) GRAM STAIN RESULT (BEAKER) <1+ WBCs (test code = 1123) GRAM STAIN RESULT (BEAKER) No organisms seen (test code = 33685) RAD, CHEST, 1 VIEW, NON [id number] 11:29:00Reason for exam:->post picc line insertionShould this be performed at the bedside?->Yes [facility] : 2000 Sex: MFINAL REPORT [...] MDReport Verified Date/Time: 03/06/2022 11:29:22 Reading Location: [facility] Radiology Reading Room OMYCIN LEVEL, [id number] 09:39:01 Test Item Value Reference Range Interpretation Comments VANCOMYCIN TROUGH (BEAKER) (test code < ug/mL 10.0-20.0 L = 522) Cooler Room Worker ID - ADMINArterial Doppler Arm, [id number] 09:02:42Ejection FractionSLEH ECHO HEARTLAB MKMcDowell [facility] HospitalArterial Doppler Arm, [id number] 09:02:42Ejection FractionSLEH ECHO HEARTLAB MKCKESSON [facility] CenterAr[facility] Arm, [id number] 09:02:42Ejection FractionSLEH ECHO HEARTLAB MKCKESSON [facility] CenterArterial Doppler Arm, [id number] 09:02:42Ejection FractionSLEH ECHO [facility] CenterFUNGUS CULTURE, BLOOD (ISOLATOR)2022-03-06 09:00:02 Test Item Value Reference Range Interpretation Comments CULTURE (BEAKER) (test No fungus isolated code = 1095) RAD, CHEST, 1 VIEW, NON [id number] 07:36:00Reason for exam:->s/p MVR [facility] : 2000 Sex: MFINAL REPORT [...] Bhatti Verified Date/Time: 03/06/2022 07:36:21 Reading Location: [facility] Radiology Reading Room CBC W/PLT COUNT & AUTO [id number] 07:08:24 Test Item Value Reference Range Interpretation [...] 0-1 PERCENT (BEAKER) (test code = 2801) [id number] 06:55:08 Test Item Value Reference Range Interpretation Comments MAGNESIUM (BEAKER) (test code = 1.7 mg/dL 1.6-2.6 627) Cooler Room Worker ID - ASHA WBASIC METABOLIC [id number] 06:55:07 Test Item Value Reference Range Interpretation [...] S NOT APPLICABLE FOR DIALYSIS PATIEN TS. Cooler Room Worker ID - ASHA W2D Echo W/Doppler(CW/PW/Color)2022-03-05 15:35:30Ejection FractionSLEH ECHO HEARTLAB [facility]2D Echo W/Doppler(CW/PW/Color)2022-03-05 15:35:30Ejection FractionSLEH ECHO HEARTLAB [facility] Echo W/Doppler(CW/PW/Color) 2022-03-05 15:35:30Ejection FractionSLEH ECHO HEARTLAB [facility]2D Echo W/Doppler(CW/PW/Color)2022-03-05 15:35:30Ejection FractionSLE ECHO [facility] CenterBlood gas, [id number] 04:49:58 Test Item Value Reference Range Interpretation Comments pH, Arterial (test code 7.47 7.35-7.45 H = 2744-1) pCO2, Arterial (test 38 See_Comment [Autom ated message] code = 2018-) The system [employer] generated this result transmit zach reference range : 35 - 45 mm Hg. The reference range was not used to interpret this result as normal/abnormal . pO2, Arterial (test 158 See_Comment H [Automa zach message] code = 2703-7) The system [employer] generated this result transmit zach reference range [...] 21 Lab Interpretation Abnormal (test code = 76186-8) [facility], [id number] 04:49:58 Test Item Value Reference Range Interpretation Comments pH, Arterial (test code 7.47 7.35-7.45 H = 2744-1) pCO2, Arterial (test 38 See_Comment [Autom ated message] code = 2019-06) The system [employer] generated this result transmit zach reference range : 35 - 45 mm Hg. The reference range was not used to interpret this result as normal/abnormal . pO2, Arterial (test 158 See_Comment H [Automa zach message] code = 2703-7) The system [employer] generated this result transmit zach reference range [...] 21 Lab Interpretation Abnormal (test code = 64550-4) [facility] gas, [id number] 04:49:58 Test Item Value Reference Range Interpretation Comments pH, Arterial (test code 7.47 7.35-7.45 H = 2744-1) pCO2, Arterial (test 38 See_Comment [Autom ated message] code = 2019-8) The system [employer] generated this result transmit zach reference range : 35 - 45 mm Hg. The reference range was not used to interpret this result as normal/abnormal . pO2, Arterial (test 158 See_Comment H [Automa zach message] code = 2703-7) The system [employer] generated this result transmit zach reference range [...] 21 Lab Interpretation Abnormal (test code = 07660-4) [facility] HospitalBlood gas, [id number] 04:49:58 Test Item Value Reference Range Interpretation Comments pH, Arterial (test code 7.47 7.35-7.45 H = 2744-1) pCO2, Arterial (test 38 See_Comment [Autom ated message] code = 2019-8) The system [employer] generated this result transmit zach reference range : 35 - 45 mm Hg. The reference range was not used to interpret this result as normal/abnormal . pO2, Arterial (test 158 See_Comment H [Automa zach message] code = 2703-7) The system [employer] generated this result transmit zach reference range [...] 21 Lab Interpretation Abnormal (test code = 47768-1) [facility] HospitalBLOOD GAS, [id number] 04:49:58 Test Item Value Reference Range Interpretation [...] (BEAKER) (test code = 1819) 21.0 CALCIUM, [id number] 04:44:55 Test Item Value Reference Range Interpretation Comments CALCIUM IONIZED (BEAKER) (test 1.12 mmol/L 1.12-1.27 code = 698) PH, BLOOD (BEAKER) (test code = 7.47 1810) [id number] 04:40:55 Test Item Value Reference Range Interpretation Comments PHOSPHORUS (BEAKER) (test code = 2.6 mg/dL 2.3-4.7 604) Cooler Room Worker ID - CLIVE [id number] 04:40:54 Test Item Value Reference Range Interpretation Comments MAGNESIUM (BEAKER) (test code = 1.8 mg/dL 1.6-2.6 627) Cooler Room Worker ID - CLIVE GBASIC METABOLIC [id number] 04:40:53 Test Item Value Reference Range Interpretation [...] S NOT APPLICABLE FOR DIALYSIS PATIEN TS. Cooler Room Worker ID - CLIVE GHEPATIC FUNCTION [id number] 04:37:34 Test Item Value Reference Range Interpretation [...] code = 102 U/L 6-55 H 347) Cooler Room Worker ID - CLIVE GCBC W/PLT COUNT & AUTO [id number] 04:36:26 Test Item Value Reference Range Interpretation [...] H PERCENT (BEAKER) (test code = 2801) [id number] 04:25:05 Test Item Value Reference Range Interpretation Comments PARTIAL THROMBOPLASTIN TIME 34.4 seconds 22.5-36.0 (BEAKER) (test code = 760) PROTHROMBIN TIME/[id number] 04:24:26 Test Item Value Reference Range Interpretation Comments PROTIME (BEAKER) 16.3 seconds 11.9-14.2 H (test code = 759) INR (BEAKER) (test 1.33 See_Comment [Automat ed message] code = 370) The system [employer] generated this result transmitted ref erence range: <=5.90. The reference range was not used to int erpret this result as normal/abnormal . RECOMMENDED COUMADIN/WARFARIN INR THERAPY RANGESSTANDARD DOSE: 2.0 - 3.0 Includes: PROPHYLAXIS for venous thrombosis, systemic embolization; TREATMENT for venous thrombosis and/or pulmonary embolus.HIGH RISK: Target INR is 2.5-3.5 for patients with mechanical heart valves.RAD, CHEST, 1 VIEW, NON [id number] 02:29:00Reason for exam:->s/p [facility] : 2000 Sex: MFINAL [...] V erified Date/Time: 03/05/2022 02:29:51 Prepare Leuko-Red [id number] 23:55:00 Test Item Value Reference Range Interpretation Comments CROSSMATCH (test code = 2264) COMPATIBLE Unit ABO (test code = O Pos 1445889) UNIT NUMBER (test code = [id number] 934-0) Status (test code = 6093212) READY Blood Bank Product (test code RED BLOOD CELLS = 2263) PRODUCT CODE (test code = P1723Z63 933-2) [facility] HospitalPrep[facility] Leuko-Red [id number] 23:55:00 Test Item Value Reference Range Interpretation Comments CROSSMATCH (test code = 2264) COMPATIBLE Unit ABO (test code = O Pos 8015431) UNIT NUMBER (test code = [id number] 934-0) Status (test code = 5281704) READY Blood Bank Product (test code RED BLOOD CELLS = 2263) PRODUCT CODE (test code = B2626N15 933-2) [facility] HospitalPrep[facility] Leuko-Red [id number] 23:55:00 Test Item Value Reference Range Interpretation Comments CROSSMATCH (test code = 2264) COMPATIBLE Unit ABO (test code = O Pos 7176479) UNIT NUMBER (test code = [id number] 934-0) Status (test code = 5850373) READY Blood Bank Product (test code RED BLOOD CELLS = 2263) PRODUCT CODE (test code = W8897I68 933-2) [facility] HospitalPrep[facility] Leuko-Red [id number] 23:55:00 Test Item Value Reference Range Interpretation Comments CROSSMATCH (test code = 2264) COMPATIBLE Unit ABO (test code = O Pos 9216069) UNIT NUMBER (test code = [id number] 934-0) Status (test code = 8535840) READY Blood Bank Product (test code RED BLOOD CELLS = 2263) PRODUCT CODE (test code = V2154M54 933-2) [facility] HospitalBASIC METABOLIC [id number] 06:50:52 Test Item Value Reference Range Interpretation [...] S NOT APPLICABLE FOR DIALYSIS PATIEN TS. Cooler Room Worker ID - BSVANCOMYCIN LEVEL, [id number] 06:47:28 Test Item Value Reference Range Interpretation Comments VANCOMYCIN TROUGH (BEAKER) (test code < ug/mL 10.0-20.0 L = 522) Cooler Room Worker ID - BSHEPATIC FUNCTION [id number] 06:46:08 Test Item Value Reference Range Interpretation [...] code = 126 U/L 6-55 H 347) Cooler Room Worker ID - [id number] 06:46:07 Test Item Value Reference Range Interpretation Comments MAGNESIUM (BEAKER) (test code = 2.0 mg/dL 1.6-2.6 627) Cooler Room Worker ID - [id number] 06:46:07 Test Item Value Reference Range Interpretation Comments PHOSPHORUS (BEAKER) (test code = 2.4 mg/dL 2.3-4.7 604) Cooler Room Worker ID - [id number] 05:43:17 Test Item Value Reference Range Interpretation Comments PARTIAL THROMBOPLASTIN TIME 33.3 seconds 22.5-36.0 (BEAKER) (test code = 760) PROTHROMBIN TIME/[id number] 05:42:34 Test Item Value Reference Range Interpretation Comments PROTIME (BEAKER) 17.4 seconds 11.9-14.2 H (test code = 759) INR (BEAKER) (test 1.45 See_Comment [Automat ed message] code = 370) The system [employer] generated this result transmitted ref erence range: <=5.90. The reference range was not used to int erpret this result as normal/abnormal . RECOMMENDED COUMADIN/WARFARIN INR THERAPY RANGESSTANDARD DOSE: 2.0 - 3.0 Includes: PROPHYLAXIS for venous thrombosis, systemic embolization; TREATMENT for venous thrombosis and/or pulmonary embolus.HIGH RISK: Target INR is 2.5-3.5 for patients with mechanical heart valves.CBC W/PLT COUNT & AUTO [id number] 05:39:13 Test Item Value Reference Range Interpretation [...] (BEAKER) (test code = 2801) BLOOD GAS, [id number] 05:28:53 Test Item Value Reference Range Interpretation [...] (BEAKER) (test code = 1819) 21.0 CALCIUM, [id number] 05:26:14 Test Item Value Reference Range Interpretation Comments CALCIUM IONIZED (BEAKER) (test 1.15 mmol/L 1.12-1.27 code = 698) PH, BLOOD (BEAKER) (test code = 7.49 1810) RAD, CHEST, 1 VIEW, NON [id number] 04:09:00Reason for exam:->s/p [facility] : 2000 Sex: MFINAL REPORT [...] Sudeep Mitchell Verified Date/Time: 03/04/2022 04:09:17 Prepare [id number] 23:56:00 Test Item Value Reference Range Interpretation Comments Unit ABO (test code = 5430515) O Pos UNIT NUMBER (test code = [id number] 934-0) Status (test code = 8850242) [place]_TIMEINCHART Blood Bank Product (test code FFP = 2263) PRODUCT CODE (test code = B3036G77 933-2) [facility] [id number] 23:56:00 Test Item Value Reference Range Interpretation Comments Unit ABO (test code = 4141827) O Pos UNIT NUMBER (test code = [id number] 934-0) Status (test code = 6962343) [place]INCCOP[facility]ALT Blood Bank Product (test code FFP = 2263) PRODUCT CODE (test code = L7219E49 933-2) [facility] [id number] 23:56:00 Test Item Value Reference Range Interpretation Comments Unit ABO (test code = 8303635) O Pos UNIT NUMBER (test code = [id number] 934-0) Status (test code = 4526029) [place]_TIMEINCHART Blood Bank Product (test code FFP = 2263) PRODUCT CODE (test code = U0613Y51 933-2) [facility] [id number] 23:56:00 Test Item Value Reference Range Interpretation Comments Unit ABO (test code = 7639886) O Pos UNIT NUMBER (test code = [id number] 934-0) Status (test code = 5900739) [place]_TIMEINCHART Blood Bank Product (test code FFP = 2263) PRODUCT CODE (test code = H4576A14 933-2) [facility] W/PLT COUNT & AUTO [id number] 20:47:38 Test Item Value Reference Range Interpretation [...] 0-0 (BEAKER) (test code = 413) POC-Glucose [id number] 18:59:54 Test Item Value Reference Range Interpretation Comments POC-Glucose Meter (test 152 mg/dL 70-110 H : TE STED AT [facility] code = 1538) [address] [facility] [place], [address]: Cooler Room Worker/Techni pola ID = [id number] for (contrac t)Gemma Lab Interpretation (test Abnormal code = 12057-3) [facility] HospitalPOC-Glucose [id number] 18:59:54 Test Item Value Reference Range Interpretation Comments POC-Glucose Meter (test 152 mg/dL 70-110 H : TE STED AT [facility] code = 1538) [address] [place] [address], [address]: Cooler Room Worker/Techni pola ID = [id number] for Engineer Operations And Maintenance (contrac t), Gemma Lab Interpretation (test Abnormal code = 49318-8) [facility] HospitalPOC-Glucose [id number] 18:59:54 Test Item Value Reference Range Interpretation Comments POC-Glucose Meter (test 152 mg/dL 70-110 H : TE STED AT [facility] code = 1538) [address] [place] [address], [address]: Cooler Room Worker/Techni pola ID = [id number] for Engineer Operations And Maintenance (contrac t), Gemma Lab Interpretation (test Abnormal code = 02536-0) [facility]-Glucose [id number] 18:59:54 Test Item Value Reference Range Interpretation Comments POC-Glucose Meter (test 152 mg/dL 70-110 H : TE STED AT [facility] code = 1538) [address] [place] [address], [address]: Cooler Room Worker/Techni pola ID = [id number] for Engineer Operations And Maintenance (contrac t), Gemma Lab Interpretation (test Abnormal code = 20743-7) [facility]-GLUCOSE [id number] 18:59:54 Test Item Value Reference Range Interpretation Comments POC-GLUCOSE METER 152 mg/dL 70-110 H : TESTED A T [facility] 6720 (BEAKER) (test code = [facility], 1538) [address]: Cooler Room Worker/Techni pola ID = [id number] for Pr iest (contract), Vijay helle POCT-GLUCOSE [id number] 13:44:11 Test Item Value Reference Range Interpretation Comments POC-GLUCOSE METER 138 mg/dL 70-110 H : TESTED A T [facility] 6720 (BEAKER) (test code = [facility], 1538) [address]: Cooler Room Worker/Techni pola ID = [id number] for Pr iest (contract), Vijay helle Lactic Acid, [id number] 09:30:53 Test Item Value Reference Range Interpretation Comments Lactate, Art (test 2.9 mmol/L 0.5-2.2 H Specimen code = 2874) slightly hemolyzed TOR (test code = TOR) Cooler Room Worker ID - BS Lab Interpretation Abnormal (test code = 29961-3) [facility] HospitalLactic Acid, [id number] 09:30:53 Test Item Value Reference Range Interpretation Comments Lactate, Art (test 2.9 mmol/L 0.5-2.2 H Specimen code = 2874) slightly hemolyzed TOR (test code = TOR) Cooler Room Worker ID - BS Lab Interpretation Abnormal (test code = 98946-1) [facility] HospitalLactic Acid, [id number] 09:30:53 Test Item Value Reference Range Interpretation Comments Lactate, Art (test 2.9 mmol/L 0.5-2.2 H Specimen code = 2874) slightly hemolyzed TOR (test code = TOR) Cooler Room Worker ID - BS Lab Interpretation Abnormal (test code = 61951-2) [facility] HospitalLactic Acid, [id number] 09:30:53 Test Item Value Reference Range Interpretation Comments Lactate, Art (test 2.9 mmol/L 0.5-2.2 H Specimen code = 2874) slightly hemolyzed TOR (test code = TOR) Cooler Room Worker ID - BS Lab Interpretation Abnormal (test code = 27222-0) [facility] HospitalLACTIC ACID, [id number] 09:30:53 Test Item Value Reference Range Interpretation Comments LACTATE BLOOD 2.9 mmol/L 0.5-2.2 H Specimen sligh tly ARTERIAL (2) (BEAKER) hemoly zed (test code = 2874) Cooler Room Worker ID - BSCBC (HEMOGRAM ONLY)2022-03-03 08:47:52 Test [...] (BEAKER) (test code = 413) BLOOD GAS, [id number] 08:34:41 Test Item Value Reference Range Interpretation [...] 1819) 21.0 RAD, CHEST, 1 VIEW, NON [id number] 08:34:00Reason for exam:->Evaluate for effusionShould this be performed at the bedside?->Yes [facility] [place] : 2000 Sex: MFINAL REPORT Chest, one view HISTORY: Pleural effusion Comparison: 03/03/2022, earlier study Findings: Lungs: The underlying lungs are clear. Heart: Normal in size. Pleura: Small right pleural effusion, unchanged from prior exam. No pneumothorax is apparent. Bones: Unremarkable. Lines/tubes: Unchanged in position. Signed: Lazarus Massey MDReport Verified Date/Time: 03/03/2022 08:34 :15 Reading Location: [facility] Radiology Reading Room ANTI-MITOCHONDRIAL AB, REFLEX TO [id number] 07:48:56 Test Item Value Reference Range Interpretation Comments SCAN RESULT (test code = 7213684) (CELLAVISION MANUAL DIFF)2022-03-03 07:14:52 Test Item Value [...] CONCENTRATION Decreased (CELLAVISION)(BEAKER) (test code = 3438) Cooler Room Worker ID - duane Recinos comments: Slide comments:CBC W/PLT COUNT & AUTO [id number] 07:14:50 Test Item Value Reference Range Interpretation [...] (test code = 413) TSH/FREE T4 IF [id number] 06:11:11 Test Item Value Reference Range Interpretation Comments THYROID STIMULATING HORMONE 2.794 uIU/mL 0.350-4.940 (BEAKER) (test code = 772) Cooler Room Worker ID - BSHEPATIC FUNCTION [id number] 05:50:04 Test Item Value Reference Range Interpretation [...] code = 160 U/L 6-55 H 347) Cooler Room Worker ID - [id number] 05:50:03 Test Item Value Reference Range Interpretation Comments MAGNESIUM (BEAKER) (test code = 2.2 mg/dL 1.6-2.6 627) Cooler Room Worker ID - [id number] 05:50:03 Test Item Value Reference Range Interpretation Comments PHOSPHORUS (BEAKER) (test code = 2.6 mg/dL 2.3-4.7 604) Cooler Room Worker ID - BSBASIC METABOLIC [id number] 05:50:02 Test Item Value Reference Range Interpretation [...] S NOT APPLICABLE FOR DIALYSIS PATIEN TS. Cooler Room Worker ID - BSLACTIC ACID, [id number] 05:38:12 Test Item Value Reference Range Interpretation Comments LACTATE BLOOD ARTERIAL (2) 3.8 mmol/L 0.5-2.2 H (BEAKER) (test code = 2874) Cooler Room Worker ID - BSPROTHROMBIN TIME/[id number] 05:31:13 Test Item Value Reference Range Interpretation Comments PROTIME (BEAKER) 17.9 seconds 11.9-14.2 H (test code = 759) INR (BEAKER) (test 1.51 See_Comment [Automat ed message] code = 370) The system Ceres generated this result transmitted ref erence range: <=5.90. The reference range was not used to int erpret this result as normal/abnormal . RECOMMENDED COUMADIN/WARFARIN INR THERAPY RANGESSTANDARD DOSE: 2.0 - 3.0 Includes: PROPHYLAXIS for venous thrombosis, systemic embolization; TREATMENT for venous thrombosis and/or pulmonary embolus.HIGH RISK: Target INR is 2.5-3.5 for patients with mechanical heart valves.CALCIUM, [id number] 04:48:17 Test Item Value Reference Range Interpretation Comments CALCIUM IONIZED (BEAKER) (test 1.12 mmol/L 1.12-1.27 code = 698) PH, BLOOD (BEAKER) (test code = 7.49 1810) Sodium Na-Stat [id number] 04:48:03 Test Item Value Reference Range Interpretation Comments Sodium (test code = 2951-2) 142 meq/L 136-145 Lab Interpretation (test code = Normal 02075-2) [facility] [id number] 04:48:03 Test Item Value Reference Range Interpretation Comments Sodium (test code = 2951-2) 142 meq/L 136-145 Lab Interpretation (test code = Normal 42187-2) [facility] Na-Stat [id number] 04:48:03 Test Item Value Reference Range Interpretation Comments Sodium (test code = 2951-2) 142 meq/L 136-145 Lab Interpretation (test code = Normal 81111-8) [facility] Na-Stat [id number] 04:48:03 Test Item Value Reference Range Interpretation Comments Sodium (test code = 2951-2) 142 meq/L 136-145 Lab Interpretation (test code = Normal 64787-9) [facility] NA-STAT [id number] 04:48:03 Test Item Value Reference Range Interpretation Comments SODIUM (BEAKER) (test code = 381) 142 meq/L 136-145 HGB/HCT (H&H)-Stat [id number] 04:47:05 Test Item Value Reference Range Interpretation Comments Hemoglobin (test code = 8.0 See_Comment L [Au tomated message] 786-4) The system Ceres generated this result transmitted ref erence range: 13.0 - 1 6.8 GM/DL. The refe rence range was not u sed to interpret this result as normal/abnor mal. Hematocrit (test code = 24.0 % 40.0-50.0 L 4544-3) Lab Interpretation (test Abnormal code = 39251-3) [facility] [id number] 04:47:05 Test Item Value Reference Range Interpretation Comments Hemoglobin (test code = 8.0 See_Comment L [Au tomated message] 786-4) The system Ceres generated this result transmitted ref erence range: 13.0 - 1 6.8 GM/DL. The refe rence range was not u sed to interpret this result as normal/abnor mal. Hematocrit (test code = 24.0 % 40.0-50.0 L 4544-3) Lab Interpretation (test Abnormal code = 18816-6) [facility] [id number] 04:47:05 Test Item Value Reference Range Interpretation Comments Hemoglobin (test code = 8.0 See_Comment L [Au tomated message] 786-4) The system Ceres generated this result transmitted ref erence range: 13.0 - 1 6.8 GM/DL. The refe rence range was not u sed to interpret this result as normal/abnor mal. Hematocrit (test code = 24.0 % 40.0-50.0 L 4544-3) Lab Interpretation (test Abnormal code = 16111-6) [facility] [id number] 04:47:05 Test Item Value Reference Range Interpretation Comments Hemoglobin (test code = 8.0 See_Comment L [Au tomated message] 786-4) The system Ceres generated this result transmitted ref erence range: 13.0 - 1 6.8 GM/DL. The refe rence range was not u sed to interpret this result as normal/abnor mal. Hematocrit (test code = 24.0 % 40.0-50.0 L 4544-3) Lab Interpretation (test Abnormal code = 40130-6) [facility] - [facility] [id number] 04:47:05 Test Item Value Reference Range Interpretation Comments HEMOGLOBIN (BEAKER) (test code = 8.0 GM/DL 13.0-16.8 L 410) HEMATOCRIT (BEAKER) (test code = 24.0 % 40.0-50.0 L 411) Glucose-Stat [id number] 04:47:04 Test Item Value Reference Range Interpretation Comments Glucose (test code = 2345-7) 198 mg/dL 70-110 H Lab Interpretation (test code = Abnormal 19394-3) [facility] [id number] 04:47:04 Test Item Value Reference Range Interpretation Comments Potassium (test code = 2823-3) 3.5 meq/L 3.6-5.5 L Lab Interpretation (test code = Abnormal 29658-6) [facility] [id number] 04:47:04 Test Item Value Reference Range Interpretation Comments Glucose (test code = 2345-7) 198 mg/dL 70-110 H Lab Interpretation (test code = Abnormal 85820-0) [facility]Potassium[facility]Stat [id number] 04:47:04 Test Item Value Reference Range Interpretation Comments Potassium (test code = 2823-3) 3.5 meq/L 3.6-5.5 L Lab Interpretation (test code = Abnormal 87237-6) [facility]Stat [id number] 04:47:04 Test Item Value Reference Range Interpretation Comments Glucose (test code = 2345-7) 198 mg/dL 70-110 H Lab Interpretation (test code = Abnormal 52697-2) [facility]assium[facility] [id number] 04:47:04 Test Item Value Reference Range Interpretation Comments Potassium (test code = 2823-3) 3.5 meq/L 3.6-5.5 L Lab Interpretation (test code = Abnormal 39370-0) [facility] HospitalGlucose[facility]Stat [id number] 04:47:04 Test Item Value Reference Range Interpretation Comments Glucose (test code = 2345-7) 198 mg/dL 70-110 H Lab Interpretation (test code = Abnormal 76100-8) [facility]assium[facility] [id number] 04:47:04 Test Item Value Reference Range Interpretation Comments Potassium (test code = 2823-3) 3.5 meq/L 3.6-5.5 L Lab Interpretation (test code = Abnormal 33125-9) [facility] HospitalPOTASSIUM-STAT [id number] 04:47:04 Test Item Value Reference Range Interpretation Comments POTASSIUM (BEAKER) (test code = 3.5 meq/L 3.6-5.5 L 379) GLUCOSE-STAT [id number] 04:47:04 Test Item Value Reference Range Interpretation Comments GLUCOSE RANDOM (BEAKER) (test code 198 mg/dL 70-110 H = 652) BLOOD GAS, [id number] 04:47:03 Test Item Value Reference Range Interpretation [...] 1819) 40.0 RAD, CHEST, 1 VIEW, NON [id number] 04:25:00while patient is intubated or has chest tubes.Reason for exam:->Status post CV SurgeryShould thisbe performed at the bedside?->Yes [facility] 2000 Sex: MFINAL REPORT CLINICAL INDICATION: Status post CV Surgery Comparison: 03/02/2022 at 2121 hours There is decreasing pneumopericardium. The cardiomediastinal contours are otherwise stable. Bilateral parenchymal and right pleural opacities are similar to previous. There is no pneumothorax. Support lines are stable. Signed: Sudeep Mitchell MDRepst. louis va medical center Verified Date/Time: 03/03/2022 04:25:58 /HCT (H&H) - STAT [id number] 03:00:35 Test Item Value Reference Range Interpretation Comments HEMOGLOBIN (BEAKER) (test code = 8.4 GM/DL 13.0-16.8 L 410) HEMATOCRIT (BEAKER) (test code = 25.0 % 40.0-50.0 L 411) BLOOD GAS, [id number] 03:00:34 Test Item Value Reference Range Interpretation [...] (BEAKER) (test code = 1819) 40.0 GLUCOSE-STAT [id number] 03:00:34 Test Item Value Reference Range Interpretation Comments GLUCOSE RANDOM (BEAKER) (test code 202 mg/dL 70-110 H = 652) SODIUM NA-STAT [id number] 02:56:45 Test Item Value Reference Range Interpretation Comments SODIUM (BEAKER) (test code = 381) 140 meq/L 136-145 POTASSIUM-STAT [id number] 02:56:45 Test Item Value Reference Range Interpretation Comments POTASSIUM (BEAKER) (test code = 3.6 meq/L 3.6-5.5 379) [id number] 01:36:12 Test Item Value Reference Range Interpretation Comments PARTIAL THROMBOPLASTIN TIME 32.3 seconds 22.5-36.0 (BEAKER) (test code = 760) LACTIC ACID, [id number] 01:32:32 Test Item Value Reference Range Interpretation Comments LACTATE BLOOD 7.0 mmol/L 0.5-2.2 HH Specimen sligh tly ARTERIAL (2) (BEAKER) hemoly zed (test code = 2874) Cooler Room Worker ID - BSGLUCOSE-STAT [id number] 00:53:10 Test Item Value Reference Range Interpretation Comments GLUCOSE RANDOM (BEAKER) (test code 199 mg/dL 70-110 H = 652) HGB/HCT (H&H) - STAT [id number] 00:53:10 Test Item Value Reference Range Interpretation Comments HEMOGLOBIN (BEAKER) (test code = 9.1 GM/DL 13.0-16.8 L 410) HEMATOCRIT (BEAKER) (test code = 27.0 % 40.0-50.0 L 411) BLOOD GAS, [id number] 00:53:09 Test Item Value Reference Range Interpretation [...] (BEAKER) (test code = 1819) 40.0 POTASSIUM-STAT [id number] 00:51:53 Test Item Value Reference Range Interpretation Comments POTASSIUM (BEAKER) (test code = 3.6 meq/L 3.6-5.5 379) SODIUM NA-STAT [id number] 00:51:52 Test Item Value Reference Range Interpretation [...] CONCENTRATION Adequate (CELLAVISION)(BEAKER) (test code = 3438) Cooler Room Worker ID - Jessica Hernandezshannan comments: Slide comments:[id number] 22:12:06 Test Item Value Reference Range Interpretation Comments PHOSPHORUS (BEAKER) (test code = 4.8 mg/dL 2.3-4.7 H 604) Cooler Room Worker ID - [id number] 22:12:05 Test Item Value Reference Range Interpretation Comments MAGNESIUM (BEAKER) (test code = 2.5 mg/dL 1.6-2.6 627) Cooler Room Worker ID - BSCOMPREHENSIVE METABOLIC [id number] 22:12:04 Test Item Value Reference Range Interpretation [...] S NOT APPLICABLE FOR DIALYSIS PATIEN TS. Cooler Room Worker ID - [id number] 22:00:19 Test Item Value Reference Range Interpretation Comments PARTIAL THROMBOPLASTIN TIME 31.4 seconds 22.5-36.0 (BEAKER) (test code = 760) [id number] 22:00:18 Test Item Value Reference Range Interpretation Comments FIBRINOGEN LEVEL (BEAKER) (test 274 mg/dl 225-434 code = 658) PROTHROMBIN [id number] 21:59:43 Test Item Value Reference Range Interpretation Comments PROTIME (BEAKER) 21.6 seconds 11.9-14.2 H (test code = 759) INR (BEAKER) (test 1.91 See_Comment [Automat ed message] code = 370) The system Ceres generated this result transmitted ref erence range: <=5.90. The reference range was not used to int erpret this result as normal/abnormal . RECOMMENDED COUMADIN/WARFARIN INR THERAPY RANGESSTANDARD DOSE: 2.0 - 3.0 Includes: PROPHYLAXIS for venous thrombosis, systemic embolization; TREATMENT for venous thrombosis and/or pulmonary embolus.HIGH RISK: Target INR is 2.5-3.5 for patients with mechanical heart valves.LACTIC ACID, [id number] 21:58:19 Test Item Value Reference Range Interpretation Comments LACTATE BLOOD ARTERIAL (2) 5.4 mmol/L 0.5-2.2 HH (BEAKER) (test code = 2874) Cooler Room Worker ID - BSPrepare [id number] 21:52:00 Test Item Value Reference Range Interpretation Comments CROSSMATCH (test code = COMPATIBLE 4) Unit ABO (test code = O Pos 6410585) UNIT NUMBER (test code = [id number] 934-0) Status (test code = RETURNED FROM ISSUE 0994671) Blood Bank Product (test RED BLOOD CELLS code = 2263) PRODUCT CODE (test code = [id number] 933-2) [facility] Hospital[facility] [id number] 21:52:00 Test Item Value Reference Range Interpretation Comments CROSSMATCH (test code = COMPATIBLE 2263) Unit ABO (test code = O Pos 9379739) UNIT NUMBER (test code = [id number] 934-0) Status (test code = RETURNED FROM ISSUE 2952134) Blood Bank Product (test RED BLOOD CELLS code = 2263) PRODUCT CODE (test code = L0286Z16 933-2) [facility] [id number] 21:52:00 Test Item Value Reference Range Interpretation Comments CROSSMATCH (test code = COMPATIBLE 2264) Unit ABO (test code = O Pos 8896032) UNIT NUMBER (test code = [id number] 934-0) Status (test code = RETURNED FROM ISSUE 5920291) Blood Bank Product (test RED BLOOD CELLS code = 2263) PRODUCT CODE (test code = O0291C14 933-2) [facility] [id number] 21:52:00 Test Item Value Reference Range Interpretation Comments CROSSMATCH (test code = COMPATIBLE 4) Unit ABO (test code = O Pos 5942241) UNIT NUMBER (test code = [id number] 934-0) Status (test code = RETURNED FROM ISSUE 9359445) Blood Bank Product (test RED BLOOD CELLS code = 2263) PRODUCT CODE (test code = Q7163N30 933-2) [facility] W/PLT COUNT & AUTO [id number] 21:50:51 Test Item Value Reference Range Interpretation [...] = 413) RAD, CHEST, 1 VIEW, NON [id number] 21:49:00Reason for exam:->s/p MVRShould this be performed at the bedside?->Yes [facility] : 2000 Sex: MFINAL REPORT [...] the inferior clavicu lar heads. Signed: Sudeep Mitchelleport Verified Date/Time: 03/02/2022 21:49:17 OSE-STAT [id number] 21:44:39 Test Item Value Reference Range Interpretation Comments GLUCOSE RANDOM (BEAKER) (test code 194 mg/dL 70-110 H = 652) HGB/HCT (H&H) - STAT [id number] 21:44:39 Test Item Value Reference Range Interpretation Comments HEMOGLOBIN (BEAKER) (test code = 9.3 GM/DL 13.0-16.8 L 410) HEMATOCRIT (BEAKER) (test code = 27.0 % 40.0-50.0 L 411) BLOOD GAS, [id number] 21:44:38 Test Item Value Reference Range Interpretation [...] (BEAKER) (test code = 1819) 60.0 POTASSIUM-STAT [id number] 21:44:03 Test Item Value Reference Range Interpretation Comments POTASSIUM (BEAKER) (test code = 4.0 meq/L 3.6-5.5 379) CALCIUM, [id number] 21:44:03 Test Item Value Reference Range Interpretation Comments CALCIUM IONIZED (BEAKER) (test 1.19 mmol/L 1.12-1.27 code = 698) PH, BLOOD (BEAKER) (test code = 7.34 1810) OXYGEN SATURATION, [id number] 21:44:02 Test Item Value Reference Range Interpretation Comments O2 SATURATION (MEASURED) (BEAKER) 96.4 % (test code = 1455) SODIUM NA-STAT [id number] 21:44:02 Test Item Value Reference Range Interpretation Comments SODIUM (BEAKER) (test code = 381) 139 meq/L 136-145 POC ACTIVATED CLOTTING [id number] 21:13:20 Test Item Value Reference Range Interpretation Comments Activated Clotting Time 112 sec : 74 -137 seconds, (test code = 441) Baseline: TESTED AT [address], [address]: Cooler Room Worker/Techni pola ID = [id number] for Arnaud Ruggiero, Kate GOODRICH [facility] ACTIVATED CLOTTING [id number] 21:13:20 Test Item Value Reference Range Interpretation Comments Activated Clotting Time 112 sec : 74 -137 seconds, (test code = 441) Baseline: TESTED AT [address], [address]: Cooler Room Worker/Techni pola ID = [id number] for Arnaud Ruggiero, Kate JOLEEN [facility] ACTIVATED CLOTTING [id number] 21:13:20 Test Item Value Reference Range Interpretation Comments Activated Clotting Time 112 sec : 74 -137 seconds, (test code = 441) Baseline: TESTED AT [address], [address]: Cooler Room Worker/Techni pola ID = [id number] for Arnaud Ruggiero, Kate [facility] ACTIVATED CLOTTING [id number] 21:13:20 Test Item Value Reference Range Interpretation Comments Activated Clotting Time 112 sec : 74 -137 seconds, (test code = 441) Baseline: TESTED AT [address], [address]: Cooler Room Worker/Techni pola ID = [id number] for Arnaud Ruggiero, Kate GOODRICH [id number][id number] 21:13:20 Test Item Value Reference Range Interpretation Comments ACTIVATED CLOTTING TIME 112 sec : 74 -137 seconds, (BEAKER) (test code = Baseli ne: TESTED AT 441) [address], [address]: Cooler Room Worker/Techni pola ID = [id number] for Arnaud Ruggiero, Kate [id number]-[id number] 21:13:20 Test Item Value Reference Range Interpretation Comments ACTIVATED CLOTTING TIME 469 sec : 74 -137 seconds, (BEAKER) (test code = Baseli ne: TESTED AT 441) [address], [address]: Cooler Room Worker/Techni pola ID = [id number] for Arnaud Ruggiero, Kate [id number] 21:12:53 Test Item Value Reference Range Interpretation Comments ACTIVATED CLOTTING TIME 475 sec : 74 -137 seconds, (BEAKER) (test code = Baseli ne: TESTED AT 441) [address], [address]: Cooler Room Worker/Techni pola ID = [id number] for Arnaud Ruggiero, Kate [id number] 21:12:52 Test Item Value Reference Range Interpretation Comments ACTIVATED CLOTTING TIME 553 sec : 74 -137 seconds, (BEAKER) (test code = Baseli ne: TESTED AT 441) [address], [facility] 30: Cooler Room Worker/Techni pola ID = [id number] for Arnaud Ruggiero, Kate [id number]-[id number] 21:12:47 Test Item Value Reference Range Interpretation Comments ACTIVATED CLOTTING TIME 571 sec : 74 -137 seconds, (BEAKER) (test code = Baseli ne: TESTED AT 441) [address], [facility] 30: Cooler Room Worker/Techni pola ID = [id number] for Arnaud Ruggiero, Kate [id number] 21:12:46 Test Item Value Reference Range Interpretation Comments ACTIVATED CLOTTING TIME 309 sec : 74 -137 seconds, (BEAKER) (test code = Baseli ne: TESTED AT 441) [address], [facility] 30: Cooler Room Worker/Techni pola ID = [id number] for Arnaud Ruggiero, Kate [id number] 21:12:17 Test Item Value Reference Range Interpretation Comments ACTIVATED CLOTTING TIME 457 sec : 74 -137 seconds, (BEAKER) (test code = Baseli ne: TESTED AT 441) [address], [facility] 30: Cooler Room Worker/Techni pola ID = [id number] for Kiara Henningvana POTASSIUM-STAT [id number] 20:31:09 Test Item Value Reference Range Interpretation Comments POTASSIUM (BEAKER) (test code = 4.4 meq/L 3.6-5.5 379) CALCIUM, [id number] 20:30:39 Test Item Value Reference Range Interpretation Comments CALCIUM IONIZED (BEAKER) (test 1.02 mmol/L 1.12-1.27 L code = 698) PH, BLOOD (BEAKER) (test code = 7.34 1810) HGB/HCT (H&H) - STAT [id number] 20:30:27 Test Item Value Reference Range Interpretation Comments HEMOGLOBIN (BEAKER) (test code = 9.0 GM/DL 13.0-16.8 L 410) HEMATOCRIT (BEAKER) (test code = 26.0 % 40.0-50.0 L 411) GLUCOSE-STAT [id number] 20:30:21 Test Item Value Reference Range Interpretation Comments GLUCOSE RANDOM (BEAKER) (test code 206 mg/dL 70-110 H = 652) BLOOD GAS, [id number] 20:30:20 Test Item Value Reference Range Interpretation [...] (test code = 1819) 100.0 SODIUM NA-STAT [id number] 20:28:53 Test Item Value Reference Range Interpretation Comments SODIUM (BEAKER) (test code = 381) 137 meq/L 136-145 HGB/HCT (H&H) - STAT [id number] 19:48:28 Test Item Value Reference Range Interpretation Comments HEMOGLOBIN (BEAKER) (test code = 10.0 GM/DL 13.0-16.8 L 410) HEMATOCRIT (BEAKER) (test code = 29.0 % 40.0-50.0 L 411) BLOOD GAS, [id number] 19:48:27 Test Item Value Reference Range Interpretation [...] (BEAKER) (test code = 1819) 65.0 GLUCOSE-STAT [id number] 19:48:27 Test Item Value Reference Range Interpretation Comments GLUCOSE RANDOM (BEAKER) (test code 191 mg/dL 70-110 H = 652) POTASSIUM-STAT [id number] 19:48:16 Test Item Value Reference Range Interpretation Comments POTASSIUM (BEAKER) (test code = 5.2 meq/L 3.6-5.5 379) SODIUM NA-STAT [id number] 19:48:15 Test Item Value Reference Range Interpretation Comments SODIUM (BEAKER) (test code = 381) 144 meq/L 136-145 Lactic acid, [id number] 19:31:08 Test Item Value Reference Range Interpretation Comments Lactate, Venous (test code = 2.64 mmol/L 0.50-2.20 H 2872) TOR (test code = TOR) Cooler Room Worker ID - BS Lab Interpretation (test Abnormal code = 24411-1) [facility] HospitalL[facility], [id number] 19:31:08 Test Item Value Reference Range Interpretation Comments Lactate, Venous (test code = 2.64 mmol/L 0.50-2.20 H 2872) TOR (test code = TOR) Cooler Room Worker ID - BS Lab Interpretation (test Abnormal code = 83125-2) [facility] HospitalL[facility] acid, [id number] 19:31:08 Test Item Value Reference Range Interpretation Comments Lactate, Venous (test code = 2.64 mmol/L 0.50-2.20 H 2872) TOR (test code = TOR) Cooler Room Worker ID - BS Lab Interpretation (test Abnormal code = 75533-5) [facility] HospitalL[facility] acid, [id number] 19:31:08 Test Item Value Reference Range Interpretation Comments Lactate, Venous (test code = 2.64 mmol/L 0.50-2.20 H 2872) TOR (test code = TOR) Cooler Room Worker ID - BS Lab Interpretation (test Abnormal code = 93116-0) [facility] HospitalLACTIC ACID, [id number] 19:31:08 Test Item Value Reference Range Interpretation Comments LACTATE BLOOD VENOUS (2) (BEAKER) 2.64 mmol/L 0.50-2.20 H (test code = 2872) Cooler Room Worker ID - BSBlood gas, [id number] 19:18:46 Test Item Value Reference Range Interpretation [...] Tal (test code = 24 mmol/L 21-29 98514-3) Base Excess, Atl (test -2.7 mmol/L -2.0-3.0 L code = 1927-3) Patient Temperature 30.1 (test code = 8310-5) FIO2 (test code = 1819) 60 Lab Interpretation Abnormal (test code = 90769-1) [facility] Hospital[facility], [id number] 19:18:46 Test Item Value Reference Range Interpretation [...] 92.8 % 40.0-70.0 H = 2711-0) HCO3, Tla (test code = 24 mmol/L 21-29 70561-2) Base Excess, Tal (test -2.7 mmol/L -2.0-3.0 L code = 1927-3) Patient Temperature 30.1 (test code = 8310-5) FIO2 (test code = 1819) 60 Lab Interpretation Abnormal (test code = 94268-7) [facility] gas, [id number] 19:18:46 Test Item Value Reference Range Interpretation [...] Tal (test code = 24 mmol/L 21-29 73691-3) Base Excess, Tal (test -2.7 mmol/L -2.0-3.0 L code = 1927-3) Patient Temperature 30.1 (test code = 8310-5) FIO2 (test code = 1819) 60 Lab Interpretation Abnormal (test code = 22397-0) [facility] gas, [id number] 19:18:46 Test Item Value Reference Range Interpretation [...] Tal (test code = 24 mmol/L 21-29 60732-0) Base Excess, Tal (test -2.7 mmol/L -2.0-3.0 L code = 1927-3) Patient Temperature 30.1 (test code = 8310-5) FIO2 (test code = 1819) 60 Lab Interpretation Abnormal (test code = 33381-8) [facility] HospitalBL[facility]OD GAS, [id number] 19:18:46 Test Item Value Reference Range Interpretation [...] (test code = 1819) 60.0 LACTIC ACID, [id number] 18:47:03 Test Item Value Reference Range Interpretation Comments LACTATE BLOOD VENOUS (2) (BEAKER) 2.12 mmol/L 0.50-2.20 (test code = 2872) Cooler Room Worker ID - ADMINHGB/HCT (H&H) - STAT [id number] 18:41:19 Test Item Value Reference Range Interpretation Comments HEMOGLOBIN (BEAKER) (test code = 9.4 GM/DL 13.0-16.8 L 410) HEMATOCRIT (BEAKER) (test code = 28.0 % 40.0-50.0 L 411) BLOOD GAS, [id number] 18:41:18 Test Item Value Reference Range Interpretation [...] (BEAKER) (test code = 1819) 65.0 GLUCOSE-STAT [id number] 18:41:18 Test Item Value Reference Range Interpretation Comments GLUCOSE RANDOM (BEAKER) (test code 172 mg/dL 70-110 H = 652) POTASSIUM-STAT [id number] 18:41:02 Test Item Value Reference Range Interpretation Comments POTASSIUM (BEAKER) (test code = 4.8 meq/L 3.6-5.5 379) SODIUM NA-STAT [id number] 18:41:01 Test Item Value Reference Range Interpretation Comments SODIUM (BEAKER) (test code = 381) 138 meq/L 136-145 GLUCOSE-STAT [id number] 18:15:11 Test Item Value Reference Range Interpretation Comments GLUCOSE RANDOM (BEAKER) (test code 164 mg/dL 70-110 H = 652) HGB/HCT (H&H) - STAT [id number] 18:15:11 Test Item Value Reference Range Interpretation Comments HEMOGLOBIN (BEAKER) (test code = 9.1 GM/DL 13.0-16.8 L 410) HEMATOCRIT (BEAKER) (test code = 27.0 % 40.0-50.0 L 411) BLOOD GAS, [id number] 18:15:10 Test Item Value Reference Range Interpretation [...] (test code = 1819) 80.0 SODIUM NA-STAT [id number] 18:14:37 Test Item Value Reference Range Interpretation Comments SODIUM (BEAKER) (test code = 381) 137 meq/L 136-145 POTASSIUM-STAT [id number] 18:14:37 Test Item Value Reference Range Interpretation Comments POTASSIUM (BEAKER) (test code = 4.1 meq/L 3.6-5.5 379) CALCIUM, [id number] 17:11:36 Test Item Value Reference Range Interpretation Comments CALCIUM IONIZED (BEAKER) (test 1.09 mmol/L 1.12-1.27 L code = 698) PH, BLOOD (BEAKER) (test code = 7.40 1810) GLUCOSE-STAT [id number] 17:11:30 Test Item Value Reference Range Interpretation Comments GLUCOSE RANDOM (BEAKER) (test code 128 mg/dL 70-110 H = 652) HGB/HCT (H&H) - STAT [id number] 17:11:30 Test Item Value Reference Range Interpretation Comments HEMOGLOBIN (BEAKER) (test code = 10.5 GM/DL 13.0-16.8 L 410) HEMATOCRIT (BEAKER) (test code = 31.0 % 40.0-50.0 L 411) SODIUM NA-STAT [id number] 17:11:29 Test Item Value Reference Range Interpretation Comments SODIUM (BEAKER) (test code = 381) 134 meq/L 136-145 L BLOOD GAS, [id number] 17:11:28 Test Item Value Reference Range Interpretation [...] (BEAKER) (test code = 1819) 100.0 POTASSIUM-STAT [id number] 17:11:02 Test Item Value Reference Range Interpretation Comments POTASSIUM (BEAKER) (test code = 4.3 meq/L 3.6-5.5 379) U/S, [id number] 15:34:00Reason for exam:->Eval right neck swelling, possible abscess vs hematomaShould this be performed at the bedside?->Yes [facility] 2000 Sex: MFINAL [...] months for further evaluation. Signed: Jackie Miller Verified Date/Time: 03/02/2022 15:34:34 Drug Test, General Toxicology, Urine 2022-03-02 13:48:01 Test Item Value Reference Interpretation Comments Range Acetone([facility]) None Detected (test code = 3053) Methanol(Quest) None Detected (test code = 3054) Drug Test,Genrl see note The followin g compounds were Tox,U (test detected: Cotin ine (Nicotine code = 4705194) Metabolite) Morphine Hydromorphone M EGx (Lidocaine Metabolite) Caf feine Methamphetamine Lidocaine Norfentanyl (Fe ntanyl Metabolite) Dex trorphan Fentanyl EDDP ( Methadone Metabolite) Met hadone Ibuprofen For a list of compounds and l imits of detection go to:http://[employer]/faq /EKD934 ISOPROPANOL None Detected (test code = 5677588) ETHANOL (test None Detected Volatile Wilson it of Detection: code = 7103178) 5 mg/dL This test was developed and i ts analytical performancechar acteristics have been deter mined by [employer] s [place], [place]. It hasnot been ulysses ared or approved by the U.S. Food and DrugAdministrat ion. This assay has been validated pursuantto the CLIA regulations and is used for clinicalpurpose s. TOR (test code Performing Lab = TOR) 15 [facility] [address] [facility] [place], [place] Wing Hinkle MD, PhD [facility] Toxicology, [id number] 13:48:01 Test Item Value Reference Interpretation Comments Range Acetone(Quest) None Detected (test code = 3053) Methanol(Quest) None Detected (test code = 3054) Drug Test,Genrl see note The followin g compounds were Tox,U (test detected: Cotin ine (Nicotine code = 5908326) Metabolite) Morphine Hydromorphone M EGx (Lidocaine Metabolite) Caf feine Methamphetamine Lidocaine Norfentanyl (Fe ntanyl Metabolite) Dex trorphan Fentanyl EDDP ( Methadone Metabolite) Met hadone Ibuprofen For a list of compounds and l imits of detection go to:http://[employer]/faq /OSR342 ISOPROPANOL None Detected (test code = 2345322) ETHANOL (test None Detected Volatile Wilson it of Detection: code = 8818133) 5 mg/dL This test was developed and i ts analytical performancechar acteristics have been deter mined by [employer] [place], [place]. It hasnot been ulysses ared or approved by the U.S. Food and DrugAdministrat ion. This assay has been validated pursuantto the CLIA regulations and is used for clinicalpurpose s. TOR (test code Performing Lab = TOR) 15 [facility] [address] [facility] [place], [place] Wing Hinkle MD, PhD [facility], General Toxicology, [id number] 13:48:01 Test Item Value Reference Interpretation Comments Range Acetone(Quest) None Detected (test code = 3053) Methanol(Quest) None Detected (test code = 3054) Drug Test,Genrl see note The followin g compounds were Tox,U (test detected: Cotin ine (Nicotine code = 1812678) Metabolite) Morphine Hydromorphone M EGx (Lidocaine Metabolite) Caf feine Methamphetamine Lidocaine Norfentanyl (Fe ntanyl Metabolite) Dex trorphan Fentanyl EDDP ( Methadone Metabolite) Met hadone Ibuprofen For a list of compounds and l imits of detection go to:http://[employer]/faq /XRR300 ISOPROPANOL None Detected (test code = 2548538) ETHANOL (test None Detected Volatile Wilson it of Detection: code = 1817428) 5 mg/dL This test was developed and i ts analytical performancechar acteristics have been deter mined by [employer] [place], [place]. It hasnot been ulysses ared or approved by the U.S. Food and DrugAdministrat ion. This assay has been validated pursuantto the CLIA regulations and is used for clinicalpurpose s. TOR (test code Performing Lab = TOR) [employer] [facility] [address] [facility] [address] [place] Wing Hinkle MD, PhD [facility], General Toxicology, [id number] 13:48:01 Test Item Value Reference Interpretation Comments Range Acetone(Quest) None Detected (test code = 3053) Methanol(Quest) None Detected (test code = 3054) Drug Test,Genrl see note The followin g compounds were Tox,U (test detected: Cotin ine (Nicotine code = 1162396) Metabolite) Morphine Hydromorphone M EGx (Lidocaine Metabolite) Caf feine Methamphetamine Lidocaine Norfentanyl (Fe ntanyl Metabolite) Dex trorphan Fentanyl EDDP ( Methadone Metabolite) Met hadone Ibuprofen For a list of compounds and l imits of detection go to:http://[employer]/faq /VQK260 ISOPROPANOL None Detected (test code = 0659393) ETHANOL (test None Detected Volatile Wilson it of Detection: code = 0312242) 5 mg/dL This test was developed and i ts analytical performancechar acteristics have been deter mined by [employer] s [place], [place]. It hasnot been ulysses ared or approved by the U.S. Food and DrugAdministrat ion. This assay has been validated pursuantto the CLIA regulations and is used for clinicalpurpose s. TOR (test code Performing Lab = TOR) 15 [employer]/[facility] [place] [address] [facility] [address] [place], [place] Wing Hinkle MD, PhD [facility] HospitalAPTT2022-04-14 11:21:49 Test Item Value Reference Range Interpretation Comments PARTIAL THROMBOPLASTIN TIME 32.0 seconds 22.5-36.0 (BEAKER) (test code = 760) HEMOGLOBIN [id number] 11:20:03 Test Item Value Reference Range Interpretation Comments HEMOGLOBIN A1C 4.5 % See_Comment [Automated m essage] ELECTROPHORESIS (KAC[employer]ealPerk) The system which (test code = 3811) generated this result transmitted ref erence range: <=5.6%. The reference range was not used to int erpret this result as normal/abnormal . "The A1c is measured using a NGSP-certified method. HbA1c value equal to or greater than 6.5% as thediagnosis cutoff for diabetes. An HbA1c value of 5.7- 6.4% indicates increased risk for diabetes (prediabetes)."Cooler Room Worker ID - ADMRAD, CHEST, 1 VIEW, NON [id number] 10:33:00Reason for exam:->follow up for improvement of pulm edemaShould this be performed at the bedside?->Yes [facility] : 2000 Sex: MFINAL [...] MDReport Verified Date/Time: 03/02/2022 10:33:54 Reading Location: [facility] Radiology Reading Room [id number] 10:30:50 Test Item Value Reference Range Interpretation Comments TRIGLYCERIDES (BEAKER) (test code = 78 mg/dL 540) TRIGLYCERIDE REFERENCE RANGELow Risk <150Borderline Risk 150-199High Risk 200-499Very High Risk >=500Operator ID - BSKARENMA NEXT GENERATION SEQUENCING 2022-03-02 09:42:13 Test Item Value Reference Range Interpretation Comments ABHAY NEXT GENERATION SEQUENCING (test code = 8811129) See scanned [id number] 09:26:44 Test Item Value Reference Range Interpretation Comments PARTIAL THROMBOPLASTIN TIME 172.2 seconds 22.5-36.0 HH (BEAKER) (test code = 760) BLOOD GAS, [id number] 09:08:16 Test Item Value Reference Range Interpretation [...] FIO2 (BEAKER) (test code = 1819) 50.0 [id number] 07:21:46 Test Item Value Reference Range Interpretation Comments PARTIAL THROMBOPLASTIN TIME > seconds 22.5-36.0 HH (BEAKER) (test code = 760) CBC W/PLT COUNT & AUTO [id number] 06:17:45 Test Item Value Reference Range Interpretation [...] code = 2801) CT, SOFT TISSUE NECK, [id number] 06:12:00Unlisted Reason for Exam - Click Yes and Enter Reason Below->No [facility]OL[facility] : 2000 Sex: MFINAL REPORT CT Neck [...] dedicated ultrasound if indicated. Signed: Aparna Trinidad MDReport Verified Date/Time: 03/02/2022 06:12:23 CT, CHEST, WITHOUT [id number] 05:42:00Unlisted Reason for Exam - Click Yes and Enter Reason Below->YesUnlisted Reason for Exam->facial plethora [facility] : 2000 Sex: MFINAL REPORT Chest CT [...] upper lobe, indeterminate however possibly infectious/inflammatory in etiology.Global cardiomegaly. Anasarca. Signed: Aparna Trinidad Verified Date/Time: 03/02/2022 05 :42:18 [id number] 05:01:44 Test Item Value Reference Range Interpretation Comments PHOSPHORUS (BEAKER) (test code = 3.6 mg/dL 2.3-4.7 604) Cooler Room Worker ID - ADMINHEPATIC FUNCTION [id number] 05:01:44 Test Item Value Reference Range Interpretation [...] code = 335 U/L 6-55 H 347) Cooler Room Worker ID - ADMINBASIC METABOLIC [id number] 05:01:43 Test Item Value Reference Range Interpretation [...] S NOT APPLICABLE FOR DIALYSIS PATIEN TS. Cooler Room Worker ID - [id number] 05:01:43 Test Item Value Reference Range Interpretation Comments MAGNESIUM (BEAKER) (test code = 1.7 mg/dL 1.6-2.6 627) Cooler Room Worker ID - ADMINBLOOD GAS, [id number] 04:56:25 Test Item Value Reference Range Interpretation [...] (BEAKER) (test code = 1819) 50.0 CALCIUM, [id number] 04:55:40 Test Item Value Reference Range Interpretation Comments CALCIUM IONIZED (BEAKER) (test 1.14 mmol/L 1.12-1.27 code = 698) PH, BLOOD (BEAKER) (test code = 7.44 1810) SARS-COV2/RT-PCR ([facility])2022-03-02 02:40:25 Test Item Value Reference Range Interpretation Comments SARS-COV2/RT-PCR (test code = Negative Negative 0105675) Negative result for this test determines that [...] 564(g) of the Act.Testing was performed using [employer] SARS-CoV-2 assay.Fact Sheet for Healthcare Providers:https://www.[employer]/amanda/RT SARS-CoV-2 HCP Fact Sheet 51- 621747.pdfFact Sheet for Healthcare Patients:https://www.[employer]/amanda/RT SARS-CoV-2 Patient Fact Sheet EN 51-934790Y8.pdfBLOOD GAS, [id number] 01:37:14 Test Item Value Reference Range Interpretation [...] = 1819) 100.0 RAD, ABDOMEN/KUB, 1 VIEW [id number] 01:10:00Reason for exam:->corpak placement[facility] : 2000 Sex: MFINAL REPORT CLINICAL HISTORY: [...] small right pleural effusion. Signed: Aparna Trinidad [facility] Verified Date/Time: 03/02/2022 01:10:30 RAD, CHEST, 1 VIEW, NON [id number] 23:42:00Reason for exam:->s/p intubation, placement of ettShould this be performed at the bedside?->Yes [facility] : 2000 Sex: MFINAL REPORT RAD, CHEST, 1 VIEW, NON DEPT INDICATION: s/p intubation, placementof ett COMPARISON: Prior day's exam FINDINGS: Portable frontal view of the chest. IMPRESSION: Support Lines: Endotracheal tube terminates 6.4 cm above the sarah. Lungs and pleura: Unchanged airspace and pleural opacities. No pneumothorax.Heart and mediastinum: Stable contours. Additional findings: None. Signed: Aparna Trinidad [facility] Verified Date/Time: 03/01/2022 23:42:09 RAD, CHEST, 1 VIEW, NON [id number] 22:35:00Reason for exam:->shortness of breathShould this be performed at the bedside?->Yes [facility] : 2000 Sex: MFINAL REPORT EXAM: Chest [...] Giovana Weiner MDReport Verified Date/Time: 03/01/2022 22:35:41 [id number] 21:34:58 Test Item Value Reference Range Interpretation Comments THYROID STIMULATING HORMONE 6.819 uIU/mL 0.350-4.940 H (BEAKER) (test code = 772) Cooler Room Worker ID - [id number] 20:53:29 Test Item Value Reference Range Interpretation Comments PARTIAL THROMBOPLASTIN TIME 50.2 seconds 22.5-36.0 H (BEAKER) (test code = 760) [id number] 14:54:49 Test Item Value Reference Range Interpretation Comments PARTIAL THROMBOPLASTIN TIME 33.8 seconds 22.5-36.0 (BEAKER) (test code = 760) [id number] 07:51:25 Test Item Value Reference Range Interpretation Comments PARTIAL THROMBOPLASTIN TIME 48.1 seconds 22.5-36.0 H (BEAKER) (test code = 760) [id number] 06:13:36 Test Item Value Reference Range Interpretation Comments PHOSPHORUS (BEAKER) (test code = 3.0 mg/dL 2.3-4.7 604) Cooler Room Worker ID - PIAYA LHEPATIC FUNCTION [id number] 06:13:36 Test Item Value Reference Range Interpretation [...] code = 402 U/L 6-55 H 347) Cooler Room Worker ID Christopher DELEON LBASIC METABOLIC [id number] 06:13:35 Test Item Value Reference Range Interpretation [...] S NOT APPLICABLE FOR DIALYSIS PATIEN TS. Cooler Room Worker ID - ADRIENNE [id number] 06:13:35 Test Item Value Reference Range Interpretation Comments MAGNESIUM (BEAKER) (test code = 1.7 mg/dL 1.6-2.6 627) Cooler Room Worker ID - ADRIENNE [id number] 05:33:09 Test Item Value Reference Range Interpretation Comments PARTIAL THROMBOPLASTIN TIME 130.5 seconds 22.5-36.0 H (BEAKER) (test code = 760) PROTHROMBIN TIME/[id number] 05:28:13 Test Item Value Reference Range Interpretation Comments PROTIME (BEAKER) 16.9 seconds 11.9-14.2 H (test code = 759) INR (BEAKER) (test 1.40 See_Comment [Automat ed message] code = 370) The system Ceres generated this result transmitted ref erence range: [...] Normal 486) CBC W/PLT COUNT & AUTO [id number] 05:26:10 Test Item Value Reference Range Interpretation [...] WBC 0-0 (BEAKER) (test code = 413) [id number] 22:02:11 Test Item Value Reference Range Interpretation Comments PARTIAL THROMBOPLASTIN TIME 54.2 seconds 22.5-36.0 H (BEAKER) (test code = 760) [id number] 12:33:47 Test Item Value Reference Range Interpretation Comments PARTIAL THROMBOPLASTIN TIME 52.1 seconds 22.5-36.0 H (BEAKER) (test code = 760) HEPATIC FUNCTION [id number] 08:25:00 Test Item Value Reference Range Interpretation [...] code = 530 U/L 6-55 H 347) Cooler Room Worker ID - ADRIENNE Margietor ID - [id number] 07:39:09 Test Item Value Reference Range Interpretation Comments MAGNESIUM (BEAKER) (test code = 1.7 mg/dL 1.6-2.6 627) Cooler Room Worker ID - ADRIENNE [id number] 07:39:09 Test Item Value Reference Range Interpretation Comments PHOSPHORUS (BEAKER) (test code = 2.7 mg/dL 2.3-4.7 604) Cooler Room Worker ID - ADRIENNE LBASIC METABOLIC [id number] 07:39:08 Test Item Value Reference Range Interpretation [...] S NOT APPLICABLE FOR DIALYSIS PATIEN TS. Cooler Room Worker ID - PIAYA L(CELLAVISION MANUAL DIFF)2022-02-28 06:30:21 Test Item Value Reference Range Interpretation Comments TOTAL COUNTED (BEAKER) (test code = 1351) RBC MORPHOLOGY (BEAKER) (test code = Normal 762) WBC MORPHOLOGY (BEAKER) (test code = Normal 487) PLT MORPHOLOGY (BEAKER) (test code = Normal 486) CBC W/PLT COUNT & AUTO [id number] 06:30:20 Test Item Value Reference Range Interpretation [...] WBC 0-0 (BEAKER) (test code = 413) [id number] 06:23:40 Test Item Value Reference Range Interpretation Comments PARTIAL THROMBOPLASTIN TIME 59.0 seconds 22.5-36.0 H (BEAKER) (test code = 760) PROTHROMBIN TIME/[id number] 06:22:31 Test Item Value Reference Range Interpretation Comments PROTIME (BEAKER) 17.5 seconds 11.9-14.2 H (test code = 759) INR (BEAKER) (test 1.46 See_Comment [Automat ed message] code = 370) The system Ceres generated this result transmitted ref erence range: <=5.90. The reference range was not used to int erpret this result as normal/abnormal . RECOMMENDED COUMADIN/WARFARIN INR THERAPY RANGESSTANDARD DOSE: 2.0 - 3.0 Includes: PROPHYLAXIS for venous thrombosis, systemic embolization; TREATMENT for venous thrombosis and/or pulmonary embolus.HIGH RISK: Target INR is 2.5-3.5 for patients with mechanical heart valves.[id number] 22:13:02 Test Item Value Reference Range Interpretation Comments PARTIAL THROMBOPLASTIN TIME 52.0 seconds 22.5-36.0 H (BEAKER) (test code = 760) [id number] 14:56:13 Test Item Value Reference Range Interpretation Comments PARTIAL THROMBOPLASTIN TIME 39.7 seconds 22.5-36.0 H (BEAKER) (test code = 760) VANCOMYCIN LEVEL, [id number] 09:49:28 Test Item Value Reference Range Interpretation Comments VANCOMYCIN TROUGH (BEAKER) (test 10.1 ug/mL 10.0-20.0 code = 522) Cooler Room Worker ID - DBBASIC METABOLIC [id number] 08:09:35 Test Item Value Reference Range Interpretation [...] S NOT APPLICABLE FOR DIALYSIS PATIEN TS. Cooler Room Worker ID - DBHEPATIC FUNCTION [id number] 08:09:35 Test Item Value Reference Range Interpretation [...] Specimen slightly (test code = 347) hemolyzed Cooler Room Worker ID - [id number] 08:09:34 Test Item Value Reference Range Interpretation Comments PHOSPHORUS (BEAKER) 2.7 mg/dL 2.3-4.7 Specimen slightly (test code = 604) hemolyzed Cooler Room Worker ID - [id number] 08:09:33 Test Item Value Reference Range Interpretation Comments MAGNESIUM (BEAKER) 1.7 mg/dL 1.6-2.6 Specimen slightly (test code = 627) hemolyzed Cooler Room Worker ID - DBHSV /2 PCR, [id number] 08:06:31 Test Item Value Reference Range Interpretation Comments HSV, PCR (test code = NEGATIVE NEGATIVE 26784-8) TOR (test code = TOR) Herpes Simplex Virus (HSV) not detected.see scanned result TEST PERFORMED BY [facility] Lab Interpretation (test Normal code = 42350-1) [facility], [id number] 08:06:31 Test Item Value Reference Range Interpretation Comments HSV, PCR (test code = NEGATIVE NEGATIVE 78306-6) TOR (test code = TOR) Herpes Simplex Virus (HSV) not detected.see scanned result TEST PERFORMED BY [facility] Lab Interpretation (test Normal code = 17465-3) [facility], [id number] 08:06:31 Test Item Value Reference Range Interpretation Comments HSV, PCR (test code = NEGATIVE NEGATIVE 13855-3) TOR (test code = TOR) Herpes Simplex Virus (HSV) not detected.see scanned result TEST PERFORMED BY [facility] Lab Interpretation (test Normal code = 70648-6) [facility], [id number] 08:06:31 Test Item Value Reference Range Interpretation Comments HSV, PCR (test code = NEGATIVE NEGATIVE 99608-3) TOR (test code = TOR) Herpes Simplex Virus (HSV) not detected.see scanned result TEST PERFORMED BY [facility] Lab Interpretation (test Normal code = 39059-2) [facility](CELLAVISION MANUAL DIFF)2022-02-27 07:25:28 Test Item [...] CONCENTRATION Adequate (CELLAVISION)(BEAKER) (test code = 3438) Cooler Room Worker ID - duane Recinos comments: Slide comments:CBC W/PLT COUNT & AUTO [id number] 07:25:26 Test Item Value Reference Range Interpretation [...] WBC 0-0 (BEAKER) (test code = 413) [id number] 06:37:40 Test Item Value Reference Range Interpretation Comments PARTIAL THROMBOPLASTIN TIME 33.2 seconds 22.5-36.0 (BEAKER) (test code = 760) PROTHROMBIN TIME/[id number] 06:37:00 Test Item Value Reference Range Interpretation Comments PROTIME (BEAKER) 18.6 seconds 11.9-14.2 H (test code = 759) INR (BEAKER) (test 1.58 See_Comment [Automat ed message] code = 370) The system Ceres generated this result transmitted ref erence range: <=5.90. The reference range was not used to int erpret this result as normal/abnormal . RECOMMENDED COUMADIN/WARFARIN INR THERAPY RANGESSTANDARD DOSE: 2.0 - 3.0 Includes: PROPHYLAXIS for venous thrombosis, systemic embolization; TREATMENT for venous thrombosis and/or pulmonary embolus.HIGH RISK: Target INR is 2.5-3.5 for patients with mechanical heart valves.BLOOD [id number] 04:00:57 Test Item Value Reference Range Interpretation Comments CULTURE (BEAKER) (test No growth in 5 days code = 1095) BLOOD [id number] 04:00:56 Test Item Value Reference Range Interpretation Comments CULTURE (BEAKER) (test No growth in 5 days code = 1095) The specimen volume collected for this blood culture was below the optimum (10 mL per bottle or 20 mL total). Use of lower volumes may adversely affect recovery and/or detection times of some organisms.[id number] 21:07:53 Test Item Value Reference Range Interpretation Comments PARTIAL THROMBOPLASTIN TIME 30.2 seconds 22.5-36.0 (BEAKER) (test code = 760) CT, CTA AAA, W/ BRANDEE.EXT.[id number] 12:35:00 [facility] : 2000 Sex: MFINAL REPORT History: IV [...] Edwards Verified Date/Time: 02/26/2022 12:35:07 Reading Location: [address] Reading Room [id number] 11:24:49 Test Item Value Reference Range Interpretation [...] CONCENTRATION Adequate (CELLAVISION)(BEAKER) (test code = 3438) Cooler Room Worker ID - duane Recinos comments: Slide comments:CBC W/PLT COUNT & AUTO [id number] 08:19:36 Test Item Value Reference Range Interpretation [...] (BEAKER) (test code = 413) HEPATIC FUNCTION [id number] 06:44:40 Test Item Value Reference Range Interpretation [...] code = 858 U/L 6-55 H 347) Cooler Room Worker ID - [id number] 06:44:39 Test Item Value Reference Range Interpretation Comments MAGNESIUM (BEAKER) (test code = 1.9 mg/dL 1.6-2.6 627) Cooler Room Worker ID - [id number] 06:44:39 Test Item Value Reference Range Interpretation Comments PHOSPHORUS (BEAKER) (test code = 2.9 mg/dL 2.3-4.7 604) Cooler Room Worker ID - DBBASIC METABOLIC [id number] 06:44:38 Test Item Value Reference Range Interpretation [...] S NOT APPLICABLE FOR DIALYSIS PATIEN TS. Cooler Room Worker ID - [id number] 06:22:29 Test Item Value Reference Range Interpretation Comments FIBRINOGEN LEVEL (BEAKER) (test 248 mg/dl 225-434 code = 658) [id number] 06:22:29 Test Item Value Reference Range Interpretation Comments PARTIAL THROMBOPLASTIN TIME 31.5 seconds 22.5-36.0 (BEAKER) (test code = 760) PROTHROMBIN TIME/[id number] 06:21:50 Test Item Value Reference Range Interpretation Comments PROTIME (BEAKER) 19.2 seconds 11.9-14.2 H (test code = 759) INR (BEAKER) (test 1.64 See_Comment [Automat ed message] code = 370) The system Ceres generated this result transmitted ref erence range: <=5.90. The reference range was not used to int erpret this result as normal/abnormal . RECOMMENDED COUMADIN/WARFARIN INR THERAPY RANGESSTANDARD DOSE: 2.0 - 3.0 Includes: PROPHYLAXIS for venous thrombosis, systemic embolization; TREATMENT for venous thrombosis and/or pulmonary embolus.HIGH RISK: Target INR is 2.5-3.5 for patients with mechanical heart valves.[id number] 00:16:41 Test Item Value Reference Range Interpretation Comments PARTIAL THROMBOPLASTIN TIME 30.9 seconds 22.5-36.0 (BEAKER) (test code = 760) PLATELET [id number] 00:13:42 Test Item Value Reference Range Interpretation Comments PLATELET COUNT (BEAKER) (test 236 K/CU MM 150-450 code = 756) Cooler Room Worker ID - 6000Transesophageal [id number] 20:42:47Ejection FractionSLE ECHO HEARTLAB [facility]Trans[facility] 2022-02-25 20:42:47Ejection FractionSLE ECHO HEARTLAB [facility] [id number] 20:42:47Ejection FractionSLE ECHO [facility] 2022-02-25 20:42:47Ejection FractionSLE ECHO HEARTLAB [facility]CK[facility]APTT2022-04-09 16:11:34 Test Item Value Reference Range Interpretation Comments PARTIAL THROMBOPLASTIN TIME 29.5 seconds 22.5-36.0 (BEAKER) (test code = 760) CT, BRAIN, WITHOUT [id number] 15:02:00Unlisted Reason for Exam - Click Yes and Enter Reason Below->YesUnlisted Reason for Exam->has IE, r/o embolismO[facility]Name: [facility] : 2000 Sex: MFINAL REPORT CT, [...] recommended for further characterization. Signed: Christi Bhatti Verified Date/Time: 02/25/2022 15:02:20 VANCOMYCIN LEVEL, [id number] 13:58:13 Test Item Value Reference Range Interpretation Comments VANCOMYCIN TROUGH (BEAKER) (test 21.3 ug/mL 10.0-20.0 H code = 522) Cooler Room Worker ID - CHRIS MArterial doppler legs [id number] 13:04:36Ejection FractionSLEH ECHO HEARTLAB [facility]CK[facility] [id number] 13:04:36Ejection FractionSLEH ECHO HEARTLAB MKCKESSON [facility] bilateral 2022-02-25 13:04:36Ejection FractionSLEH ECHO HEARTLAB MKCKESSON [facility] Center[facility] legs [id number] 13:04:36Ejection FractionSLEH ECHO HEARTLAB MKCKESSON [facility] (CELLAVISION MANUAL DIFF)2022-02-25 08:34:41 Test Item Value Reference [...] CONCENTRATION Adequate (CELLAVISION)(BEAKER) (test code = 3438) Cooler Room Worker ID - Tiffanie Mcdonnell comments: Slide comments:CBC W/PLT COUNT & AUTO [id number] 08:34:40 Test Item Value Reference Range Interpretation [...] (BEAKER) (test code = 413) HEPATIC FUNCTION [id number] 04:51:10 Test Item Value Reference Range Interpretation [...] code = 1129 U/L 6-55 H 347) Cooler Room Worker ID - CHRIS [id number] 04:51:09 Test Item Value Reference Range Interpretation Comments PHOSPHORUS (BEAKER) (test code = 2.9 mg/dL 2.3-4.7 604) Cooler Room Worker ID Christopher PEREZ MBASIC METABOLIC [id number] 04:51:08 Test Item Value Reference Range Interpretation [...] S NOT APPLICABLE FOR DIALYSIS PATIEN TS. Cooler Room Worker ID - CHRIS [id number] 04:51:08 Test Item Value Reference Range Interpretation Comments MAGNESIUM (BEAKER) (test code = 1.9 mg/dL 1.6-2.6 627) Cooler Room Worker ID - CHRIS [id number] 04:34:44 Test Item Value Reference Range Interpretation Comments FIBRINOGEN LEVEL (BEAKER) (test 231 mg/dl 225-434 code = 658) [id number] 04:34:44 Test Item Value Reference Range Interpretation Comments PARTIAL THROMBOPLASTIN TIME 30.5 seconds 22.5-36.0 (BEAKER) (test code = 760) PROTHROMBIN TIME/[id number] 04:34:05 Test Item Value Reference Range Interpretation Comments PROTIME (BEAKER) 19.7 seconds 11.9-14.2 H (test code = 759) INR (BEAKER) (test 1.70 See_Comment [Automat ed message] code = 370) The system Ceres generated this result transmitted ref erence range: <=5.90. The reference range was not used to int erpret this result as normal/abnormal . RECOMMENDED COUMADIN/WARFARIN INR THERAPY RANGESSTANDARD DOSE: 2.0 - 3.0 Includes: PROPHYLAXIS for venous thrombosis, systemic embolization; TREATMENT for venous thrombosis and/or pulmonary embolus.HIGH RISK: Target INR is 2.5-3.5 for patients with mechanical heart valves.LACTIC ACID, [id number] 00:44:59 Test Item Value Reference Range Interpretation Comments LACTATE BLOOD VENOUS (2) (BEAKER) 2.77 mmol/L 0.50-2.20 H (test code = 2872) Cooler Room Worker ID - CHRIS MCTA, CHEST, ABDOMEN - PELVIS, FOR [id number] 22:49:00Unlisted Reason for Exam - Click Yes and Enter Reason Below- >YesUnlisted Reason for Exam->Abdominal pain; Pre cardiac surgery; severe MR; EndocarditisOAK VALLEY HOS[facility]ITALName: [facility]USAN [facility]ISANO : 2000 Sex: MFINAL [...] be excluded with urinalysis. Signed: Sudeep Mitchell [facility] Verified Date/Time: 02/24/2022 22:49:25 IC ACID, [id number] 17:35:51 Test Item Value Reference Range Interpretation Comments LACTATE BLOOD VENOUS 2.46 mmol/L 0.50-2.20 H Specime n moderately (2) (BEAKER) (test hemolyzed code = 5842) Cooler Room Worker ID - DBCREATINE KINASE (CK)2022-02-24 16:17:17 Test Item Value Reference Range Interpretation Comments CREATINE KINASE TOTAL (BEAKER) (test 52 U/L 29-200 code = 380) Cooler Room Worker ID - DBRAD, CHEST, 1 VIEW, NON [id number] 15:33:00Reason for exam:- >evaluate for pulmonary edemaShould this be performed at the bedside?->Yes [facility] : 2000 Sex: MFINAL REPORT TECHNIQUE: Frontal [...] MDReport Verified Date/Time: 02/24/2022 15:33:34 Reading Location: [address] Reading Room HEPATITIS B PCR, QUANTITATIVE 2022-02-24 13:55:05 Test Item Value Reference Range Interpretation Comments HBV RESULT COMPONENT HBV DNA not detected HBV DNA not detected (BEAKER) (test code = 2701) This test uses a Real-Time Polymerase Chain Reaction (RT-PCR) methodology and was performed using DAVID AmpliPrep/DAVID TaqMan HBV Test, v2.0 ([employer]Reportable range for this assay is [...] CONCENTRATION Adequate (CELLAVISION)(BEAKER) (test code = 3438) Cooler Room Worker ID - duane Recinos comments: Slide comments:CBC W/PLT COUNT & AUTO [id number] 12:17:03 Test Item Value Reference Range Interpretation [...] (BEAKER) (test code = 413) VANCOMYCIN LEVEL, [id number] 11:22:40 Test Item Value Reference Range Interpretation Comments VANCOMYCIN TROUGH (BEAKER) (test 3.1 ug/mL 10.0-20.0 L code = 522) Cooler Room Worker ID - DBBASIC METABOLIC [id number] 11:13:55 Test Item Value Reference Range Interpretation [...] S NOT APPLICABLE FOR DIALYSIS PATIEN TS. Cooler Room Worker ID - DBHEPATIC FUNCTION [id number] 11:12:19 Test Item Value Reference Range Interpretation [...] code = 1310 U/L 6-55 H 347) Cooler Room Worker ID - [id number] 11:12:18 Test Item Value Reference Range Interpretation Comments MAGNESIUM (BEAKER) (test code = 2.0 mg/dL 1.6-2.6 627) Cooler Room Worker ID - [id number] 11:12:18 Test Item Value Reference Range Interpretation Comments PHOSPHORUS (BEAKER) (test code = 2.8 mg/dL 2.3-4.7 604) Cooler Room Worker ID - [id number] 10:57:53 Test Item Value Reference Range Interpretation Comments FIBRINOGEN LEVEL (BEAKER) (test 231 mg/dl 225-434 code = 658) PROTHROMBIN TIME/[id number] 10:52:52 Test Item Value Reference Range Interpretation Comments PROTIME (BEAKER) 21.2 seconds 11.9-14.2 H (test code = 759) INR (BEAKER) (test 1.86 See_Comment [Automat ed message] code = 370) The system Ceres generated this result transmitted ref erence range: <=5.90. The reference range was not used to int erpret this result as normal/abnormal . RECOMMENDED COUMADIN/WARFARIN INR THERAPY RANGESSTANDARD DOSE: 2.0 - 3.0 Includes: PROPHYLAXIS for venous thrombosis, systemic embolization; TREATMENT for venous thrombosis and/or pulmonary embolus.HIGH RISK: Target INR is 2.5-3.5 for patients with mechanical heart valves.LACTIC ACID, [id number] 10:47:45 Test Item Value Reference Range Interpretation Comments LACTATE BLOOD VENOUS 2.19 mmol/L 0.50-2.20 Specime n slightly (2) (BEAKER) (test hemolyzed code = 2872) Cooler Room Worker ID - ADRIENNE [id number] 16:32:27 Test Item Value Reference Range Interpretation Comments POTASSIUM (SHANNAN) (test code = 3.9 meq/L 3.5-5.1 379) Cooler Room Worker ID - DBLACTIC ACID, [id number] 16:07:33 Test Item Value Reference Range Interpretation Comments LACTATE BLOOD VENOUS (2) (SHANNAN) 2.54 mmol/L 0.50-2.20 H (test code = 2872) Cooler Room Worker ID - DBHEPATITIS C PCR, [id number] 14:20:05 Test Item Value Reference Range Interpretation Comments HCV RESULT COMPONENT HCV RNA not detected HCV RNA not detected (SHANNAN) (test code = 2699) This test uses a Real-Time Polymerase Chain Reaction (RT-PCR) methodology and was performed using DAVID Ampliprep/DAVID TaqMan HCV test kit version 2.0 ([employer]).Reportable range for this assay is 15 - 100,000,000 IU per mL (1.18 - 8.00 Log IU/mL).CMV PCR, [id number] 14:08:54 Test Item Value Reference Range Interpretation [...] and its performance characteristics determined by the [facility] Pathol ogy Department, Section of Molecular Pathology. [...] by IFA method.CBC W/PLT COUNT & AUTO [id number] 08:06:11 Test Item Value Reference Range Interpretation [...] CONCENTRATION Adequate (CELLAVISION)(BEAKER) (test code = 3438) Cooler Room Worker ID - Rachid comments: Slide comments:[id number] 04:09:19 Test Item Value Reference Range Interpretation Comments FIBRINOGEN LEVEL (BEAKER) (test 201 mg/dl 225-434 L code = 658) PROTHROMBIN TIME/[id number] 04:09:03 Test Item Value Reference Range Interpretation Comments PROTIME (BEAKER) 25.9 seconds 11.9-14.2 H (test code = 759) INR (BEAKER) (test 2.40 See_Comment [Automat ed message] code = 370) The system Ceres generated this result transmitted ref erence range: <=5.90. The reference range was not used to int erpret this result as normal/abnormal . RECOMMENDED COUMADIN/WARFARIN INR THERAPY RANGESSTANDARD DOSE: 2.0 - 3.0 Includes: PROPHYLAXIS for venous thrombosis, systemic embolization; TREATMENT for venous thrombosis and/or pulmonary embolus.HIGH RISK: Target INR is 2.5-3.5 for patients with mechanical heart valves.CALCIUM, [id number] 04:07:05 Test Item Value Reference Range Interpretation Comments CALCIUM IONIZED (BEAKER) (test 1.04 mmol/L 1.12-1.27 L code = 698) PH, BLOOD (BEAKER) (test code = 7.42 1810) BASIC METABOLIC [id number] 03:53:54 Test Item Value Reference Range Interpretation [...] S NOT APPLICABLE FOR DIALYSIS PATIEN TS. Cooler Room Worker ID - PIAYA [id number] 03:53:39 Test Item Value Reference Range Interpretation Comments PHOSPHORUS (BEAKER) (test code = 2.7 mg/dL 2.3-4.7 604) Cooler Room Worker ID - PIAYA LHEPATIC FUNCTION [id number] 03:53:39 Test Item Value Reference Range Interpretation [...] code = 2009 U/L 6-55 H 347) Cooler Room Worker ID Christopher DELEON [id number] 03:53:38 Test Item Value Reference Range Interpretation Comments MAGNESIUM (BEAKER) (test code = 2.0 mg/dL 1.6-2.6 627) Cooler Room Worker ID Christopher DELEON LLACTIC ACID, [id number] 03:46:16 Test Item Value Reference Range Interpretation Comments LACTATE BLOOD VENOUS 1.51 mmol/L 0.50-2.20 Specime n slightly (2) (KACIAKER) (test hemolyzed code = 2872) Cooler Room Worker ID Christopher DELEON LSARS-COV2/RT-PCR ([facility])2022-02-23 01:42:58 Test Item Value Reference Range Interpretation Comments SARS-COV2/RT-PCR (test Negative Not Detected, Negative, code = 4971898) See external report for linked test SARS-COV-2 PERFORMING LAB [facility] (test code = 4455182) Negative result for this test determines that [...] of the Act.Fact Sheet for Healthcare Prov iders:https://www.[employer]/sites/default/files/product/documents/Fact_Sheet_HC _Gkoqzjryj_Iitk_BRHY-ArL-0.pdfFact Sheet for Healthcare Patients:https://www.[employer]/sites/default/files/product/docume nts/Kotb_Hwrei_Bguepnxw_Tgad_TUEH-TlZ-4.pdfPerforming Laboratory:[facility] [place], [place] [address]cheri [facility].[place], [place] [address]VVCZ SENSITIVITY TROPONIN [id number] 23:20:37 Test Item Value Reference Range Interpretation Comments HIGH SENSITIVITY 60 pg/ml See_Comment H [Automated message] TROPONIN I (test code = The system which 3416109) generated this result transmitted ref erence range: <=35. Th e reference range was not used to int erpret this result as normal/abnormal . Cooler Room Worker ID - BSThe TIE BUCKER STAT High Sensitivity Troponin-I results should be used in conjunctionwith other diagnostic information such as ECG, clinical observations and information, and patient symptoms to aid in the diagnosis of NM.LACTIC ACID, [id number] 23:17:05 Test Item Value Reference Range Interpretation Comments LACTATE BLOOD VENOUS (2) (BEAKER) 2.26 mmol/L 0.50-2.20 H (test code = 2872) Cooler Room Worker ID - BSOperator ID - [id number] 16:23:26 Test Item Value Reference Range Interpretation Comments PROCALCITONIN (BEAKER) (test code 3.38 ng/mL <0.05 H = 3036) SEPSIS RISK (ng/mL)Low: 0.05-0.50Intermediate: 0.51-2.00High: >=2.01 HEMOGLOBIN AND [id number] 16:14:08 Test Item Value Reference Range Interpretation Comments HEMOGLOBIN (BEAKER) (test code = 8.3 GM/DL 13.7-17.5 L 410) HEMATOCRIT (BEAKER) (test code = 26.7 % 40.1-51.0 L 411) Cooler Room Worker ID - 6000LACTIC ACID, [id number] 16:06:01 Test Item Value Reference Range Interpretation Comments LACTATE BLOOD VENOUS (2) (BEAKER) 2.13 mmol/L 0.50-2.20 (test code = 2872) Cooler Room Worker ID - BSCOMPLEMENT COMPONENT [id number] 15:03:19 Test Item Value Reference Range Interpretation Comments C4 COMPLEMENT (BEAKER) (test code = < mg/dL 15-57 L 394) Cooler Room Worker ID - BSCOMPLEMENT COMPONENT [id number] 14:46:11 Test Item Value Reference Range Interpretation Comments C3 COMPLEMENT (BEAKER) (test code = 22 mg/dL 82-193 L 393) Cooler Room Worker ID - [id number] 14:30:46 Test Item Value Reference Range Interpretation Comments FERRITIN (BEAKER) (test code = 2992.85 ng/mL 5.00-275.00 H 361) Cooler Room Worker ID - ADRIENNE LOperator ID - ADRIENNE LVITAMIN B12 AND [id number] 14:30:41 Test Item Value Reference Range Interpretation Comments VITAMIN B12 > pg/mL 213-816 H (BEAKER) (test code = 774) FOLATE (BEAKER) 15.00 ng/mL See_Comment [Automated message] (test code = 362) The system which generated this result transmitted ref erence range: >=7.00. The reference range was not used to interpr et this result as normal/abnormal . Cooler Room Worker ID - ADRIENNE TEE/S, DUPLEX, [id number] 14:27:00Reason for exam:- >r/o pvtCHI [facility]: S[facility] PISANO [place] : 2000 Sex: MFINAL REPORT U/S, DUPLEX, [...] Estrada Verified Date/Time: 02/22/2022 14:27:04 COMPREHENSIVE METABOLIC [id number] 13:51:49 Test Item Value Reference Range Interpretation [...] S NOT APPLICABLE FOR DIALYSIS PATIEN TS. Cooler Room Worker ID - ADRIENNE MAYS, TIBC, % SAT. (WITHOUT FERRITIN)2022-02-22 13:05:26 Test Item Value Reference Range Interpretation Comments IRON (BEAKER) (test code = 547) 181.0 ug/dL 40.0-160.0 H TOTAL IRON BINDING CAPACITY 176 ug/dL 250-450 L (BEAKER) (test code = 769) IRON % SATURATION (2) (BEAKER) 103 % 20-55 H (test code = 2590) Cooler Room Worker ID - [id number] 11:53:00 Test Item Value Reference Range Interpretation Comments RPR SCREEN (BEAKER) (test code = Nonreactive Nonreactive 420) 2D Echo W/Doppler(CW/PW/Color)2022-02-22 11:47:40Ejection FractionSLEH ECHO HEARTLAB [facility] W/Doppler(CW/PW/Color)2022-02-22 11:47:40Ejection FractionSLEH ECHO HEARTLAB [facility] Echo W/Doppler(CW/PW/Color) 2022-02-22 11:47:40Ejection FractionSLEH ECHO HEARTLAB [facility] W/Doppler(CW/PW/Color)2022-02-22 11:47:40Ejection FractionSLEH ECHO HEARTLAB [facility] CenterETH[facility]OL 2022-02-22 10:24:42 Test Item Value Reference Range Interpretation Comments ETHANOL (BEAKER) < mg/dL See_Comment [Automated message] The (test code = 400) system [facility] generated this result tra nsmitted reference range : <=10. The reference r yo was not used to int erpret this result as normal/abnormal . Cooler Room Worker ID - BSEBV ANTIBODY, [id number] 10:16:24 Test Item Value Reference Range Interpretation Comments DALE SANTIAGO VIRAL CAPSID Positive Negative, Equivocal A ANTIGEN IGG (BEAKER) (test code = 3415) Dale Santiago Viral Capsid Antigen IgG Result Interpretation: </= 0.8 Al Negative 0.9-1.0 Al Equivocal >/= 1.1 Al PositiveCYTOMEGALOVIRUS ANTIBODY, [id number] 10:16:24 Test Item Value Reference Range Interpretation Comments CYTOMEGALOVIRUS, IGG (BEAKER) Positive Negative, Equivocal A (test code = 3429) CMV IgG Result Interpretation: </= 0.8 Al Negative 0.9-1.0 Al Equivocal >/=1.1 Al PositiveEBV ANTIBODY, [id number] 10:16:22 Test Item Value Reference Range Interpretation [...] mmol/L 0.50-2.20 H (test code = 2872) Cooler Room Worker ID - BSVANCOMYCIN LEVEL, [id number] 06:14:35 Test Item Value Reference Range Interpretation Comments VANCOMYCIN TROUGH (BEAKER) (test 10.4 ug/mL 10.0-20.0 code = 522) Cooler Room Worker ID - PIAYA TEE/S, ABDOMINAL, [id number] 05:15:00Abdomen limited area? Add comment if clarification is needed.->LiverReason for exam:->Evaluatefor etiology of acute liver failure [facility] : 2000 Sex: MFINAL REPORT U/S, ABDOMINAL, [...] CONCENTRATION Adequate (CELLAVISION)(BEAKER) (test code = 3438) Cooler Room Worker ID - Rachid comments: Slide comments:CBC W/PLT COUNT & AUTO [id number] 05:10:17 Test Item Value Reference Range Interpretation [...] 0-0 (BEAKER) (test code = 413) ACETAMINOPHEN [id number] 04:58:58 Test Item Value Reference Range Interpretation Comments ACETAMINOPHEN LEVEL (BEAKER) (test < ug/mL 10.0-30.0 L code = 344) Therapeutic Range: 10.0-30.0 g/mLToxic Levels: >200.0 g/mLOperator ID - BSOperator ID - PIAYA LHEPATIC FUNCTION [id number] 04:36:01 Test Item Value Reference Range Interpretation [...] code = 2572 U/L 6-55 H 347) Cooler Room Worker ID - BSLACTIC ACID, [id number] 04:33:04 Test Item Value Reference Range Interpretation Comments LACTATE BLOOD VENOUS (2) (BEAKER) 4.15 mmol/L 0.50-2.20 HH (test code = 2872) Cooler Room Worker ID - BSHEPATITIS PANEL, [id number] 04:30:57 Test Item Value Reference Range Interpretation Comments HEPATITIS A IGM ANTIBODY (BEAKER) Nonreactive Nonreactive (test code = 498) HEPATITIS B CORE IGM ANTIBODY Nonreactive Nonreactive (BEAKER) (test code = 645) HEPATITIS C ANTIBODY (BEAKER) Reactive Nonreactive A (test code = 367) HEPATITIS B SURFACE ANTIGEN (2) Nonreactive Nonreactive (BEAKER) (test code = 2585) Cooler Room Worker ID - BSHEPATITIS B SURFACE [id number] 04:30:49 Test Item Value Reference Range Interpretation Comments HEPATITIS B SURFACE ANTIBODY < mIU/mL <8.0 (BEAKER) (test code = 647) Cooler Room Worker ID - BSHEPATITIS A [id number] 04:30:43 Test Item Value Reference Range Interpretation Comments HEPATITIS A IGM ANTIBODY (BEAKER) Nonreactive Nonreactive (test code = 498) HEPATITIS A IGG ANTIBODY (BEAKER) Reactive Nonreactive A (test code = 2797) Cooler Room Worker ID - BSBASIC METABOLIC [id number] 04:30:04 Test Item Value Reference Range Interpretation [...] S NOT APPLICABLE FOR DIALYSIS PATIEN TS. Cooler Room Worker ID - BSHEPATITIS B CORE ANTIBODY, [id number] 04:29:05 Test Item Value Reference Range Interpretation Comments HEPATITIS B CORE TOTAL ANTIBODY Nonreactive Nonreactive (BEAKER) (test code = 497) Cooler Room Worker ID - BSHIV-1 ANTIGEN WITH HIV-1/2 [id number] 04:24:43 Test Item Value Reference Range Interpretation Comments HIV-1 ANTIGEN WITH HIV 1\\T\\2 Nonreactive Nonreactive ANTIBODY (2) (BEAKER) (test code = 2586) Cooler Room Worker ID - [id number] 03:57:10 Test Item Value Reference Range Interpretation Comments PARTIAL THROMBOPLASTIN TIME 29.7 seconds 22.5-36.0 (BEAKER) (test code = 760) PROTHROMBIN TIME/[id number] 03:56:52 Test Item Value Reference Range Interpretation Comments PROTIME (BEAKER) 27.6 seconds 11.9-14.2 H (test code = 759) INR (BEAKER) (test 2.61 See_Comment [Automat ed message] code = 370) The system [employer] generated this result transmitted ref erence range: <=5.90. The reference range was not used to int erpret this result as normal/abnormal . RECOMMENDED COUMADIN/WARFARIN INR THERAPY RANGESSTANDARD DOSE: 2.0 - 3.0 Includes: PROPHYLAXIS for venous thrombosis, systemic embolization; TREATMENT for venous thrombosis and/or pulmonary embolus.HIGH RISK: Target INR is 2.5-3.5 for patients with mechanical heart valves.[id number] 03:48:30 Test Item Value Reference Range Interpretation Comments AMMONIA (BEAKER) (test code = 348) 95 mol/L 18-72 H Cooler Room Worker ID - BSRAPID STREP SCREEN FOR GROUP [id number] 20:12:44 Test Item Value Reference Range Interpretation Comments Streptococcus pyogenes (group A) Negative Negative antigen (test code = 14968-9) Lab Interpretation (test code = Normal 81664-3) [facility], TXCT ABDOMEN PELVIS W [id number] 21:49:08CT Abdomen and Pelvis with intravenous contrast. [...] Unremarkable.CONCLUSION: No acute intra-abdominal or pelvic abnormalities detected.[facility] [id number] 21:22:00 Test Item Value Reference Range Interpretation Comments APPEARANCE (test code = Hazy Clear A 2342484580) COLOR (test code = Yellow Yellow 9483594542) PH (test code = 4.8-8.0 8571864786) SP GRAVITY (test code = 1.003-1.030 5144791760) GLU U QUAL (test code = Normal Normal 7385817802) BLOOD (test code = 1+ Negative A 7984536819) KETONES (test code = Negative Negative 7509829469) PROTEIN (test code = Negative Negative 2887-8) UROBILIN (test code = Normal Normal 0374644745) BILIRUBIN (test code = Negative Negative 6891462350) NITRITE (test code = Negative Negative 4758535249) LEUK DEANDRE (test code = Negative Negative 7856232391) RBC/HPF (test code = See_Comment H [Autom ated message] 6706350797) The system [employer] generated this result transmitted ref erence range: 0 - 3 HP F. The reference range was not used to int erpret this result as normal/abnormal . WBC/HPF (test code = See_Comment [Autom ated message] 2592621502) The system [employer] generated this result transmitted ref erence range: 0 - 5 HP F. The reference range was not used to int erpret this result as normal/abnormal . BACTERIA (test code = Negative Negative 7173372570) MUCOUS (test code = Slight Negative LPF A 6976300999) Lab Interpretation (test Abnormal code = 18181-5) [facility]. METABOLIC PANEL (91127)2020-06-29 21:03:00 Test Item Value Reference Range Interpretation Comments NA (test code = 139 mmol/L 135-145 0279111949) K (test code = 3.9 mmol/L 3.5-5 8587615374) CL (test code = 102 mmol/L 98-108 7842845144) CO2 TOTAL (test code = 27 mmol/L 23-31 0756173154) AGAP (test code = 2-16 8843904759) BUN (test code = 11 mg/dL 7-23 6332830549) GLUCOSE (test code = 87 mg/dL 70-110 5874775829) CREATININE (test code = 0.89 mg/dL 0.6-1.25 8606063077) TOTAL BILI (test code = 0.3 mg/dL 0.1-1.1 2013528764) CALCIUM (test code = 10.2 mg/dL 8.6-10.6 6553931971) T PROTEIN (test code = 8.6 g/dL 6.3-8.2 H 7093017412) ALBUMIN (test code = 5.0 g/dL 3.5-5 5541045607) ALK PHOS (test code = 67 U/L 34-122 6081363065) ALTv (test code = 37 U/L 5-50 1742-6) AST(SGOT) (test code = 32 U/L 13-40 1159325816) eGFR Calculation mL/min/1.73m2 (Non-) (test code = 6116039636) eGFR Calculation mL/min/1.73m2 () (test code = 9661732059) TOR (test code = TOR) Association of [...] tests). Lab Interpretation Abnormal (test code = 13794-4) [facility], TXLIPASE2020-08-11 21:02:00 Test Item Value Reference Range Interpretation Comments LIPASE (test code = 9265166872) 27 U/L 0-220 Lab Interpretation (test code = Normal 64234-8) [facility], TXCB WITH [id number] 20:53:00 Test Item Value Reference Range Interpretation [...] RDW-SD (test code = 43.6 fL 38.5-51.6 32062-9) RDW-CV (test code = 13.2 % 12.1-15.4 788-0) PLT (test code = See_Comment H [Automated 777-3) message] The sy stem which generated this result transmitted reference range : 150 - 328 10*3/ ?L. The reference r yo was not used to interpret this result as normal/abnormal . MPV (test code = 9.3 fL 9.8-13 L 31797-7) NRBC/100 WBC (test See_Comment [Automat ed code = 5870588942) message] The system which generated this result transmitted reference range : 0.0 - 10.0 /100 WBCs. The refer ence range was not u sed to interpret th is result as normal/abnormal . NRBC x10^3 (test code <0.01 See_Comment [Auto mated = 8752173400) message] The s ystem which generated this result transmitted reference range : 10*3/?L. The reference range was not used to interpret this result as normal/abnormal . GRAN MAT (NEUT) % 44.3 % (test code = 770-8) IMM GRAN % (test code 1.70 % = 9630121831) LYMPH % (test code = 39.1 % 736-9) MONO % (test code = 6.8 % 5905-5) EOS % (test code = 7.2 % 713-8) BASO % (test code = 0.9 % 706-2) GRAN MAT x10^3(ANC) 3.41 10*3/uL 1.99-6.95 (test code = 4562335653) IMM GRAN x10^3 (test 0.13 10*3/uL 0-0.06 H code = 2059920217) LYMPH x10^3 (test code 3.01 10*3/uL 1.09-3.23 = 731-0) MONO x10^3 (test code 0.52 10*3/uL 0.36-1.02 = 742-7) EOS x10^3 (test code = 0.55 10*3/uL 0.06-0.53 H 711-2) BASO x10^3 (test code 0.07 10*3/uL 0.01-0.09 = 704-7) Lab Interpretation Abnormal (test code = 57537-6) [facility] [place], [place][[facility]] TSH, 3RD GENERATION W/REFLEX TO FT4 2018-04-10 09:01:01 Test Item Value Reference Range Interpretation Comments TSH (test code = 63088-8) 1.760 {uIU/ml} 0.360-3.740 [facility]] HEPATITIS [id number] 09:01:01 Test Item Value Reference Range Interpretation Comments Hepatitis B Surface Antigen (test Negative Negative code = 5195-3) Hepatitis C Antibody (test code = Negative 50367-3) Hepatitis B Core IgM (test code = Negative Negative 86504-2) Hepatitis A IgM (test code = Negative Negative 00828-5) [facility][] HIV AB, HIV 1/2, EIA, WITH [id number] 09:01:01 Test Item Value Reference Range Interpretation Comments HIV Ag/Ab 4th Gen (test code = Negative Negative 24342-7) [facility]] [id number] 09:01:01 Test Item Value Reference Range Interpretation Comments RPR (test code = 07985-1) Non-Reactive Non-Reactive [facility][] GC/CT by Amp Det (APTIMA)2018-04-10 09:01:01 Test Item Value Reference Range Interpretation Comments Source APTIMA Urine (test code = Source APTIMA) N gonorrhea by Amp Negative Negative The APTIM A assay is a Det (APTIMA) (test target am plification code = 33222-6) nucleic acid probe test utilizingtarget capture for the qualitative detection and differentia tion of ribosomalRNA fr om Neisseria gonorrhoeae to aid in the diagnosis of di sease fromsymptomatic and asymptomatic in dividuals using the PANTImprivata ER System.This ass ay utilizes FDA cleared IVD reagents. Performance juani racteristics havebeen verifi ed by the [facility] with in [facility].The [facility] r[facility] is authorized unde r the Clinical LaboratoryImpro vement Amendments of 988 (CLIA-88) to pe rform high complexity test ing. C trachomatis by Negative Negative The APTIMA assay is a Amp Det (APTIMA) target ampl ification (test code = nucleic acid pr obe test 58809-6) utilizingtarget capture for the qualitative detection and differentia tion of ribosomalRNA fr om Chlamydia trachomatis to aid in the diagnosis of di sease fromsymptomatic and asymptomatic in dividuals using the Echometrix ER System.This ass ay utilizes FDA cleared IVD reagents. Performance juani racteristics havebeen verifi ed by the [facility] with in [facility].The [facility] r[facility] is authorized unde r the Clinical LaboratoryImpro vement Amendments of 1 988 (CLIA-88) to pe rform high complexity test ing. [facility]
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
[2022-08-09] MEDS ORDERED: HYDROCODONE/APAP 5/325 MG TAB ONE (06:36)
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
[2022-08-10 14:25] VITALS: TEMP 98.2
[2022-08-10 14:27] VITALS: BP 147/79; O2SAT 98
== END 2022-08-09 06:38 | disposition home or self-care (01) ==
LOC: ER 03:58
DX: M25.561 Pain in right knee (principal); S00.83XA Contusion of other part of head, initial encounter; R90.89 Other abnormal findings on diagnostic imaging of central nervous system; F17.210 Nicotine dependence, cigarettes, uncomplicated
CPT/HCPCS: 70450; 71045; 72125; 99284